=== PATIENT | female | born 1940 | race Caucasian/White ===

== ENCOUNTER → 2019-07-07 | Outpatient (REF) | payer BC, MEDICARE ==
[2019-07-07 20:28] LABS: BASO # 0.1 10^3/uL (0.0-0.2); BASO % 0.7 % (0.0-1.0); EOS # 0.3 10^3/uL (0.0-0.5); HEMATOCRIT 49.2 % (36.0-47.0); HEMOGLOBIN 14.9 g/dl (12.0-15.5); LYMPH # 2.6 10^3/uL (1.5-5.0); LYMPH % 30.5 % (24.0-44.0); MEAN CORPUSCULAR HEMOGLOBIN 28.7 pg (27.0-33.0); MEAN CORPUSCULAR HGB CONC 30.3 g/dl (32.0-36.5); MEAN CORPUSCULAR VOLUME 94.8 fl (80.0-96.0); MONO # 0.7 10^3/uL (0.0-0.8); MONO % 7.7 % (0.0-5.0); NEUTROPHILS # 4.9 10^3/uL (1.5-8.5); NEUTROPHILS % 56.8 % (36.0-66.0); PLATELET COUNT, AUTOMATED 159 10^3/uL (150-450); RED BLOOD COUNT 5.19 10^6/uL (4.00-5.40); WHITE BLOOD COUNT 8.6 10^3/uL (4.0-10.0)
[2019-07-07 20:37] LABS: ALBUMIN 3.5 GM/DL (3.2-5.2); BILIRUBIN,TOTAL 0.2 MG/DL (0.2-1.0); CALCIUM LEVEL 9.3 MG/DL (8.8-10.2); CHOLESTEROL RISK RATIO 2.521 (<5); CREATININE FOR GFR 0.99 MG/DL (0.55-1.30); GLOMERULAR FILTRATION RATE 57.9 (>39); POTASSIUM SERUM 4.5 MEQ/L (3.5-5.1); THYROID STIMULATING HORMONE 18.1 uIU/ML (0.358-3.740); TOTAL PROTEIN 6.9 GM/DL (6.4-8.2)
[2019-07-07 21:00] LABS: HEMOGLOBIN A1c 7.1 %
[2019-07-07 21:03] LABS: AMPHETAMINES URINE REFLEX NEGATIVE (NEGATIVE); BARBITURATES URINE REFLEX NEGATIVE (NEGATIVE); BENZODIAZEPINES URINE REFLEX PENDING CONFIRMATION (NEGATIVE); CANNABINOIDS URINE REFLEX NEGATIVE (NEGATIVE); COCAINE METABOLITE URINE REFLE NEGATIVE (NEGATIVE); MALB URINE SIEMENS 28.4 MG/L; MAU/CREAT RATIO 21.1 MCG/MG (0.0-30.0); METHADONE URINE REFLEX NEGATIVE (NEGATIVE); PHENCYCLIDINE URINE REFLEX NEGATIVE (NEGATIVE)
[2019-07-07 21:17] LABS: OPIATES URINE REFLEX PENDING CONFIRMATION (NEGATIVE)
[2019-07-13 00:06] LABS: Benzodiazepines Negative (Cutoff=300); Opiates Negative (Cutoff=200)
== END ==
LOC: M SFHCLERA 16:47
PROVIDERS: ATTEND Family Medicine
DX: Z51.81 Encounter for therapeutic drug level monitoring (principal); Z79.4 Long term (current) use of insulin; E11.9 Type 2 diabetes mellitus without complications
CPT/HCPCS: 80053; 80061; 80307; 82043; 83036; 84443; 85025; G0480

== ENCOUNTER → 2019-08-25 | Outpatient (REF) | payer MEDICARE, BC | LOC: M SFHCLERA 16:19 | PROVIDERS: ATTEND Family Medicine | DX: E03.8 Other specified hypothyroidism (principal) | CPT/HCPCS: 84443; G0463 ==

== ENCOUNTER → 2019-09-02 | Outpatient (REF) | payer MEDICARE, BC | LOC: M SMT 12:53 | PROVIDERS: ATTEND Urology | DX: N39.46 Mixed incontinence (principal); C67.9 Malignant neoplasm of bladder, unspecified | CPT/HCPCS: 87086; 88108; G0463 ==

== ENCOUNTER → 2019-09-10 | Outpatient (REF) | payer MEDICARE, BC | LOC: M SFHCLERA 09:27 | PROVIDERS: ATTEND Family Medicine | DX: K52.9 Noninfective gastroenteritis and colitis, unspecified (principal) | CPT/HCPCS: 86255; G0463 ==

== ENCOUNTER → 2019-09-26 | Outpatient (REF) | payer MEDICARE, BC | LOC: M SFHCLERA 11:58 | PROVIDERS: ATTEND Family Medicine | DX: E03.9 Hypothyroidism, unspecified (principal) ==

== ENCOUNTER → 2019-09-29 | Outpatient (REF) | payer MEDICARE, BC ==
[2019-09-29 16:50] LABS: CALCIUM LEVEL 8.7 MG/DL (8.8-10.2); GLOMERULAR FILTRATION RATE 57.2 (>39); POTASSIUM SERUM 5.4 MEQ/L (3.5-5.1)
== END ==
LOC: M LABSMT 10:44
PROVIDERS: ATTEND Nurse Practitioner Family
DX: Z85.51 Personal history of malignant neoplasm of bladder (principal)

== ENCOUNTER → 2019-10-01 | Outpatient (CLI) | payer MEDICARE, BC ==
--- NOTE | 2019-10-01 15:45 | REP ---
CT abdomen and pelvis without IV or oral contrast: History: History of bladder cancer. The patient reports IV contrast allergy. No comparison imaging. CT findings: Preliminary digital precise winder radiograph demonstrates a vena cava filter in place and vertebroplasty cement at the L1 vertebral body level. On axial CT images, the lung bases are clear. There are one or two granulomatous calcifications in the spleen. There is mild diffuse fatty infiltration of the liver. No focal liver mass lesion is seen on this noncontrast study. No adrenal mass is observed. There is a cyst in the right mid kidney measuring 3 cm in greatest diameter. Vascular calcification is seen in a normal caliber aorta. IVC filter is noted in place. There are clips in the gallbladder post cholecystectomy. No abnormalities noted in the pancreas. No retroperitoneal mass or adenopathy is seen. No pelvic mass or adenopathy is noted. The uterus appears to be surgically absent. No adnexal pathology. Urinary bladder is unremarkable. No abdominal wall defect or bony destructive lesion is seen. Impression: IVC filter. Postcholecystectomy and apparently hysterectomy. Right renal cyst. No evidence of mass or adenopathy. Electronically Signed by Edgar Gibson MD 10/01/2019 05:03 P
== END ==
LOC: M RAD 13:32
PROVIDERS: ATTEND Urology
DX: Z85.51 Personal history of malignant neoplasm of bladder (principal); Z95.828 Presence of other vascular implants and grafts; Z90.49 Acquired absence of other specified parts of digestive tract; N28.1 Cyst of kidney, acquired

== ENCOUNTER → 2019-10-18 | Outpatient (REF) | payer MEDICARE, BC ==
[2019-10-18 14:27] LABS: CALCIUM LEVEL 8.7 MG/DL (8.8-10.2); CREATININE FOR GFR 1.31 MG/DL (0.55-1.30); GLOMERULAR FILTRATION RATE 41.8 (>39); POTASSIUM SERUM 4.6 MEQ/L (3.5-5.1)
== END ==
LOC: M SFHCLERA 11:13
PROVIDERS: ATTEND Family Medicine
DX: I10 Essential (primary) hypertension (principal)

== ENCOUNTER → 2019-11-04 | Outpatient (REF) | payer MEDICARE, BC | LOC: M SFHCLERA 12:16 | PROVIDERS: ATTEND Family Medicine | DX: K52.9 Noninfective gastroenteritis and colitis, unspecified (principal) ==

== ENCOUNTER → 2019-11-19 | Outpatient (CLI) | payer MEDICARE, BC ==
--- NOTE | 2019-11-19 12:56 | REP ---
Right knee series: Five views. History: Lateral pain with ambulation. No comparison views. Findings: Five views of the right knee demonstrate that the patient is status post lateral screw plate fixation device along the lateral aspect of the proximal tibia apparently for fixation of lateral tibial plateau fracture. There is some depression of the lateral tibial plateau seen with secondary osteoarthritic spurring of the lateral tibial plateau. Mild narrowing of the joint space is seen laterally. There is some chondrocalcinosis medially. There is diffuse osteoporosis. No evidence of joint effusion is seen. Minimal vascular calcification is present. Impression: Status post open reduction internal fixation for lateral tibial plateau fracture with moderate lateral compartment osteoarthritic spurring and some residual depression. There is mild patellar spurring. Diffuse osteopenia. Electronically Signed by Edgar Gibson MD 11/19/2019 08:05 P
== END ==
LOC: M LRY 10:02
PROVIDERS: ATTEND Family Medicine
DX: M17.11 Unilateral primary osteoarthritis, right knee (principal); I10 Essential (primary) hypertension; E11.9 Type 2 diabetes mellitus without complications; M25.561 Pain in right knee
CPT/HCPCS: 73564; 80048; 83036; G0463

== ENCOUNTER → 2019-11-19 | Outpatient (REF) | payer MEDICARE, BC ==
[2019-11-19 12:46] LABS: HEMOGLOBIN A1c 8.1 %
[2019-11-19 12:54] LABS: CALCIUM LEVEL 8.6 MG/DL (8.8-10.2); CREATININE FOR GFR 1.3 MG/DL (0.55-1.30); GLOMERULAR FILTRATION RATE 42.2 (>39); POTASSIUM SERUM 4.2 MEQ/L (3.5-5.1)
== END ==
LOC: M SFHCLERA 09:43
PROVIDERS: ATTEND Family Medicine
DX: I10 Essential (primary) hypertension (principal); E11.9 Type 2 diabetes mellitus without complications

== ENCOUNTER → 2020-05-20 | Outpatient (CLI) | payer MEDICARE, BC ==
[~2020-05-20] MED LIST: CARV25TA PO; CHLO125TA PO; DULO1CAP6 PO; LEVO112T2 PO; LOPE2CAP PO; LOSA25TA14 PO; ROPI0.5T3 PO
--- NOTE | 2020-05-25 16:22 | ECHO ---
DATE OF PROCEDURE: 05/20/2020 Age: 79 Gender: Female Height: Weight: REFERRING PHYSICIAN: Bryson Young DO Patient Location: Outpatient INDICATION: Cardiac murmur. MEASUREMENTS: 2D measurements: IVS 2.2 cm LV 2.4 cm LVPW 1.9 cm LA 3.7 cm Aorta 2.4 cm IVC 1.9 cm DOPPLER MEASUREMENTS: Peak velocity across the aortic valve 1.9 m/s Peak velocity across the LVOT 1.5 m/s Peak gradient across the aortic valve 15 mmHg Mitral E 0.48 Mitral 0.74 with a ratio of 0.7 Maximum tricuspid jet velocity 1.9 m/s 2D COMMENTS: 1. Moderately increased left ventricular wall thickness with ischemic asymmetric hypertrophy, a small left ventricle and a normal global left ventricular systolic function. The estimated left ventricular systolic ejection fraction is 60 to 65% 2. Normal left atrium. Normal right atrium and ventricle. 3. The atrial septum appears to be normal without evidence of defect or shunt. 4. Normal aortic root. 5. Trace pericardial effusion noted. No evidence of cardiac tamponade. 6. Minimally calcified aortic valve with normal leaflet excursion. Mildly calcific mitral annulus and JENNIFER/systolic anterior motion of the anterior mitral leaflet could not be ruled out. Normal tricuspid valve. The pulmonic valve and proximal pulmonary artery branches were not well visualized. 7. The inferior vena cava was normal in size. Central venous pressure is probably normal. DOPPLER: It detects trace and mild aortic regurgitation, trace mitral regurgitation and trace tricuspid regurgitation. The calculated pulmonary artery systolic pressure is normal. Abnormal relaxation pattern was noted across the mitral valve leaflets, as well as the mitral valve annulus consistent with features of grade 1 left ventricular diastolic dysfunction. IMPRESSION: 1. Normal global left ventricular systolic function with hypertrophic asymmetric cardiomyopathy. Could not rule out an obstructive pattern. 2. Aortic valve sclerosis with just mild aortic regurgitation and trivial aortic stenosis. 3. Trace mitral regurgitation with mitral annulus calcification. 4. Trace tricuspid regurgitation with a normal calculated pulmonary artery systolic pressure. 5. Trace pericardial effusion. MTDD
== END ==
LOC: M CARPUL 10:04
PROVIDERS: ATTEND Family Medicine
DX: R01.1 Cardiac murmur, unspecified (principal)

== ENCOUNTER → 2020-06-23 | Outpatient (REF) | payer MEDICARE, BC ==
[2020-06-23 15:43] LABS: BASO # 0.1 10^3/uL (0.0-0.2); BASO % 0.5 % (0.0-1.0); EOS # 0.3 10^3/uL (0.0-0.5); HEMATOCRIT 44.3 % (36.0-47.0); LYMPH # 2.5 10^3/uL (1.5-5.0); LYMPH % 23.2 % (24.0-44.0); MEAN CORPUSCULAR HGB CONC 29.3 g/dl (32.0-36.5); MEAN CORPUSCULAR VOLUME 98.7 fl (80.0-96.0); MONO # 0.6 10^3/uL (0.0-0.8); MONO % 5.9 % (0.0-5.0); NEUTROPHILS # 7.2 10^3/uL (1.5-8.5); NEUTROPHILS % 66.9 % (36.0-66.0); PLATELET COUNT, AUTOMATED 181 10^3/uL (150-450); RED BLOOD COUNT 4.49 10^6/uL (4.00-5.40); WHITE BLOOD COUNT 10.8 10^3/uL (4.0-10.0)
[2020-06-23 15:59] LABS: HEMOGLOBIN A1c 7.4 %
[2020-06-23 16:24] LABS: CALCIUM LEVEL 8.4 MG/DL (8.8-10.2); CHOLESTEROL RISK RATIO 2.915 (<5); CREATININE FOR GFR 1.5 MG/DL (0.55-1.30); GLOMERULAR FILTRATION RATE 35.8 (>39); POTASSIUM SERUM 4.4 MEQ/L (3.5-5.1); THYROID STIMULATING HORMONE 6.44 uIU/ML (0.358-3.740)
== END ==
LOC: M SFHCLERA 12:09
PROVIDERS: ATTEND Family Medicine
DX: E11.9 Type 2 diabetes mellitus without complications (principal); E03.9 Hypothyroidism, unspecified

== ENCOUNTER → 2020-07-08 | Outpatient (REF) | payer MEDICARE, BC | LOC: M LAB REF 08:25 | PROVIDERS: ATTEND Physician Assistant | DX: C44.519 Basal cell carcinoma of skin of other part of trunk (principal); B07.9 Viral wart, unspecified | CPT/HCPCS: 11102; 11103; 17110; 88305; G0463 ==

== ENCOUNTER → 2020-07-12 | Outpatient (CLI) | payer MEDICARE, BC ==
[2020-07-12 16:13] LABS: CALCIUM LEVEL 8.7 MG/DL (8.8-10.2); CREATININE FOR GFR 1.4 MG/DL (0.55-1.30); GLOMERULAR FILTRATION RATE 38.7 (>39); POTASSIUM SERUM 4.6 MEQ/L (3.5-5.1)
[2020-07-12 16:32] LABS: APPEARANCE, URINE CLOUDY (CLEAR); BACTERIA, URINE AUTO 1+ (NEGATIVE); BILIRUBIN, URINE AUTO 1+ (NEGATIVE); BLOOD, URINE BLOOD NEGATIVE (NEGATIVE); COLOR, URINE AMBER (YELLOW); GLUCOSE, URINE (UA) AUTO NEGATIVE (NEGATIVE); KETONE, URINE AUTO TRACE mg/dL (NEGATIVE); LEUKOCYTE ESTERASE, URINE AUTO NEGATIVE (NEGATIVE); MUCUS, URINE SMALL (NEGATIVE); NITRITE, URINE AUTO NEGATIVE (NEGATIVE); PROTEIN, URINE AUTO 1+ mg/dL (NEGATIVE); RBC, URINE AUTO 2 /HPF (0-3); SPECIFIC GRAVITY URINE AUTO 1.023 (1.002-1.035); SQUAMOUS EPITHELIAL CELL UR AU 6 /HPF (0-6); WBC, URINE AUTO 8 /HPF (0-3)
== END ==
LOC: M WUC 13:04
PROVIDERS: ATTEND Family Medicine
DX: R79.89 Other specified abnormal findings of blood chemistry (principal)

== ENCOUNTER 2020-10-01 11:58 | Inpatient (IN) | payer MEDICARE, BC ==
[~2020-10-01] VITALS: Ht 154.9 cm; Wt 89.1 kg
--- OUTSIDE RECORDS SUMMARY | 2020-10-01 12:03 | CCD ---
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 Z79.4 Activ e 231049502 Problem Malignant neoplasm of urinary bladder, unspecified site C67.9 Active 703791291 Problem Tobacco use disorder F17.200 Active 662457254 Problem Urinary (tract) obstruction N13.9 Active 7163 005 Problem History of bladder cancer Z85.51 Active 057057 004 Problem 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 04112057 ALLERGIES Allergen (clinical drug ingredient) Drug/Non Drug Allergy do cumented on EMR Reaction Allergy Type Onset Date Status Sulfa (for allergy use only) Mouth sores Drug Allergy Active Penicillin (For Allergies Use Only) Rash Drug Allerg y Active tetracycline Tetracycline HCl([facility] Code:[address]-05) Rash Drug Allergy Active ENCOUNTERS from 1941 to 2020-09-24 Encounter Location Date Provider Diagnosis [facility] Dermatology [address] [address] Aug, Beulah Eisenberg IMMUNIZATIONS Vaccine Route Administration Date Status Influenza (18 yrs & older) Flublok IM Intramuscular Aug 22, 2020 Administered Influenza (18 yrs & older) Flublok IM Intramuscular Jul 28, 2019 Administered SOCIAL HISTORY Tobacco Use: Social History Observation Description Date Details (start date - stop date) Current Smoker Sex Assigned At : Social History Observation Description Sex Assigned At Unknown Education: Question Answer Notes Level of Education: High School 10th grade Audit Question Answer Notes Total Score: 0 Interpretation: Alcohol Education Language: Question Answer Notes Languages spoken: [place] Hinduism: Question Answer Notes Hinduism 08 Holiness Sexual Hx: Question Answer Notes Had sex in the last 12 months (vaginal, oral, or anal)? No Have you ever had an STD? No Drug and Alcohol Question Answer Notes Total Score: 0 Interpretation: No problems reported Alcohol Screening: Question Answer Notes Did you have a drink containing alcohol in the past year? No Points 0 Interpretation Negative BMI Care Goal Follow-Up Question Answer Notes Above Normal BMI Follow-Up Giving encouragement to exercise Tobacco Use: Question Answer Notes Are you a: current smoker 1ppd for 64 years REASON FOR REFERRAL No Information VITAL SIGNS No information MEDICATIONS Medication SIG (Take, Route, Frequency, Duration) Notes Start Da te End Date Status Insulin Syringe 31G X 5/16 as directed e11.9 intradermally bid f or 90 days Jul, Active Cymbalta 60 MG 1 capsule Orally Every night for 90 days Active FreeStyle Vero [place] - as directed intradermally Daily Dx: E11.9 for 999 days May, Active Ropinirole HCl 0.5 MG 2 tablets Orally At bedtime for 90 days Active Nebulizer - j44.9 as directed for 30 days Aug, Active Xanax 1 MG 1 tablet Orally Twice a day for 30 days Aug, Active Fluocinolone Acetonide 0.01 % 1 application Externally Apply to entire scalp once weekly, leave on overnight, rinse in morning for 30 days Jun, Active Xanax 1MG 1 tablet Orally twice a day as needed for 30 days Active Probiotic - 2 capsules Orally Once a day Active OneTouch UltraSoft Lancets - as directed Daily for 30 days Dec, Active OneTouch Ultra Test - as directed In Vitro once in the morning fasting and as needed for hypoglycemia for 30 days Dec, Active Loperamide HCl 2 MG 1 capsule as needed Orally three times a day for 90 days Active Lovastatin 10 MG 1 tablet with the evening meal Orally Once a da y for 90 days Active Carvedilol 25 MG 1 tablet Orally Twice a day for 90 days Active ReliOn 70/30 40 Units Subcutaneously Twice a day for 90 days Active Tylenol Extra Strength 500 MG 1 tablet as needed Orally every 6 hrs Active GenTeal Tears 0.1-0.2-0.3 % 1 drop into both eyes Opht halmic As needed every day Active Losartan Potassium 25 MG 1 tablet Orally Once a day for 90 days Aug, Active FreeStyle Vero 14 Day Sensor - as directed intradermally Daily for 90 days Sep, Active Magnesium _ 1 capsule with a meal Orally Once a day Active PreserVision AREDS - 2 capsules Orally Once a day Active Chlorthalidone 25 MG 1 tablet in the morning with food Orally Once a day for 90 days Sep, Active Levothyroxine Sodium 125 MCG 1 tablet in the morning o n an empty stomach Orally Once a day for 90 days Jun, Active PROCEDURES No Information RESULTS No Results REASON FOR VISIT NEED TO SCHEDULE MEDICAL (GENERAL) HISTORY Type Description Date Medical History Insulin dependent diabetes, diagnosed in her early 50s Medical History Hypertension Medical History Hyperlipidemia Medical History Chronic musculoskeletal pain Medical History Chronic prescription benzodiazepene use Medical History Fibromyalgia Medical History Obstructive sleep apnea Medical History Tobacco use disorder, quit 06/04/19 Medical History COPD Medical History Hypothyroidism Medical History Restless legs syndrome Medical History Chronic prescription opiate use Medical History Bladder cancer Medical History Anxiety Surgical History Neck Surgery Surgical History Thyroid Surgical History Gallbladder Surgical History Bladder Stent Surgical History Right leg surgery Surgical History Back surgery Surgical History Bilateral foot bunionectomy Surgical History Right toe Surgical History Bilateral carpel tunnel Surgical History Bilateral cataract Surgical History cystoscopy 10/14/19 Hospitalization History surgery related Hospitalization History MRSA Goals Section No Information Health Concerns No Information MEDICAL EQUIPMENT No Information MENTAL STATUS No Information FUNCTIONAL STATUS No Information ASSESSMENTS No Information PLAN OF TREATMENT Medication Medication Name Sig Start Date Stop Date Lovastatin 10 MG 1 tablet with the evening meal Orally Once a da y for 90 days Chlorthalidone 25 MG 1 tablet in the morning with food Orally Once a day for 90 days Sep, Losartan Potassium 25 MG 1 tablet Orally Once a day for 90 days Aug, Xanax 1MG 1 tablet Orally twice a day as needed for 30 day s Loperamide HCl 2 MG 1 capsule as needed Orally three times a day for 90 days FreeStyle Vero 14 Day Sensor - as directed intradermally Da vinayak for 90 days Sep, Ropinirole HCl 0.5 MG 2 tablets Orally At bedtime for 90 days Xanax 1 MG 1 tablet Orally Twice a day for 30 days Aug, Levothyroxine Sodium 125 MCG 1 tablet in the morning o n an empty stomach Orally Once a day for 90 days Jun, ReliOn 70/30 40 Units Subcutaneously Twice a day for 90 days Insulin Syringe 31G X 5/16 as directed e11.9 intradermally b id for 90 days Jul, Cymbalta 60 MG 1 capsule Orally Every night for 90 days Next Appt Details Provider Name:Trent Reid, 2020-10 10:30:00 AM, [address] [place] [address], [address] [place] [address], [address], Provider Name:Bryson Young, 2020-11-02 11:00:00 AM, [address] [place], [address], Provider Name:Elver Rizo, 2020-11-02 01:30:00 PM, [address] [place], [address], Provider Name:Beulah Eisenberg, 01:45:00 PM, [address] [place] [address], [address] [place] [address], [address], Insurance Providers Payer Name Payer Address Payer Phone Insured Name Patient Relati onship to Insured Coverage Start Date Coverage End Date [facility] [phone] [facility] [address] [phone] DANIELA SAXENA MEDICARE Part A and B [address] [facility] [address] [phone] DANIELA SAXENA self
--- OUTSIDE RECORDS SUMMARY | 2020-10-01 12:03 | CCD ---
Author Author [facility] Organization [facility] Address Unknown Phone Unavailable Care Team Providers Care Emergency Veterinary Technician Name Role Phone Bryson Young Unavailable PROBLEMS Type Condition ICD9-CM Code [id number] Code Onset Dates Condition S tatus SNOMED Code Notes Problem Type 2 diabetes mellitus without complications E11 .9 Active 317202173 Problem Chronic obstructive pulmonary disease, unspecified COPD ty pe J44.9 Active 53356109 Problem MCC (current) use of insulin Z79.4 Activ e 067802765 Problem Other specified hypothyroidism E03.8 Active 4 0264888 Problem Tobacco use disorder F17.200 Active 137074201 Problem Chronic pain syndrome G89.4 Active 946514418 Problem History of bladder cancer Z85.51 Active 454001 004 Problem Malignant neoplasm of urinary bladder, unspecified site C67.9 Active 205857471 Problem Hypothyroidism, unspecified type E03.9 Active 75505602 Problem 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 9 Active 143001366 Problem Urinary (tract) obstruction N13.9 Active 7163 005 Problem Essential hypertension I10 Active 51059728 Problem Glaucoma, unspecified glaucoma type, unspecified lateralit y H40.9 Active 64140080 Problem Anxiety F41.9 Active 09684325 Problem Restless leg G25.81 Active 36644686 Problem Type 2 diabetes mellitus wit hout complication, without long-term current use of insulin E11.9 Active 665566490 ALLERGIES Allergen (clinical drug ingredient) Drug/Non Drug Allergy do cumented on EMR Reaction Allergy Type Onset Date Status Sulfa (for allergy use only) Mouth sores Drug Allergy Active Penicillin (For Allergies Use Only) Rash Drug Allerg y Active tetracycline Tetracycline HCl([facility] Code:[address]-84) Rash Drug Allergy Active ENCOUNTERS from 1941 to 2020-09-20 Encounter Location Date Provider Diagnosis [facility] [address] [place] [address], Bryson Young IMMUNIZATIONS Vaccine Route Administration Date Status Influenza [...] Education Language: Question Answer Notes Languages spoken: Croatian Methodist: Question Answer Notes Methodist 08 Protestant Sexual Hx: Question Answer Notes Had sex [...] night for 90 days Active FreeStyle Vero 14 Day Sensor - as directed intradermally Daily for 30 days Sep, Active Ropinirole HCl 0.5 MG 2 tablets [...] Twice a day for 90 days Active Magnesium _ 1 capsule with a meal Orally Once a day Active GenTeal Tears 0.1-0.2-0.3 % 1 drop into both eyes Opht halmic As needed every day Active Losartan Potassium 25 MG 1 tablet Orally Once a day for 90 days Aug, Active Tylenol Extra Strength 500 MG 1 tablet as needed Orally every 6 hrs Active [employer] Vero [place] - as directed intradermally Daily Dx: E11.9 for 999 days May, Active PreserVision AREDS - 2 capsules Orally Once a day Active Chlorthalidone 25 MG 1 tablet in the morning with food Orally Once a day for 90 days Sep, Active Levothyroxine Sodium 125 MCG 1 tablet in the morning o n an empty stomach Orally Once a day for 90 days Jun, Active PROCEDURES No Information RESULTS No Results REASON FOR VISIT Refill MEDICAL (GENERAL) HISTORY Type Description Date Medical [...] - as directed intradermally Da vinayak for 30 days Sep, Ropinirole HCl 0.5 MG 2 [...] for 90 days Next Appt Details Provider Name:Beulah Eisenberg, 02:15:00 PM, [address] [facility], [address] [place] [address], [place], [address], Provider Name:Bryson Young, 2020-11-02 11:00:00 AM, [address] [place], [address], Insurance Providers Payer Name Payer Address Payer Phone Insured Name Patient Relati onship to Insured Coverage Start Date Coverage End Date MEDICARE Part A and B [address] [facility] [phone] DANIELA SAXENA BC OF [place] [phone] [facility] [address] DANIELA SAXENA
--- OUTSIDE RECORDS SUMMARY | 2020-10-01 12:03 | CCD ---
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.4 Activ e 956749905 Problem Malignant neoplasm of urinary bladder, unspecified site C67.9 Active 605484135 Problem Tobacco use disorder F17.200 Active 359405531 Problem Urinary (tract) obstruction N13.9 Active 7163 005 Problem History of bladder cancer Z85.51 Active 695072 004 Problem 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 04066811 ALLERGIES Allergen (clinical drug ingredient) Drug/Non Drug Allergy do cumented on EMR Reaction Allergy Type Onset Date Status Sulfa (for allergy use only) Mouth sores Drug Allergy Active Penicillin (For Allergies Use Only) Rash Drug Allerg y Active tetracycline Tetracycline HCl([facility] Code:[address]-66) Rash Drug Allergy Active ENCOUNTERS from 1941 to 2020-09-22 Encounter Location Date Provider Diagnosis [facility] [address] [place] [address], Bryson Thomasett IMMUNIZATIONS Vaccine Route Administration Date Status Influenza [...] Education Language: Question Answer Notes Languages spoken: Pashto Jainism: Question Answer Notes Jainism 08 Mandaen Sexual Hx: Question Answer Notes Had sex [...] night for 90 days Active FreeStyle Vero [place] - as directed intradermally Daily Dx: E11.9 [...] Information RESULTS No Results REASON FOR VISIT rx send to mail order MEDICAL (GENERAL) HISTORY Type Description Date Medical [...] Details Provider Name:Beulah Eisenberg, 02:15:00 PM, [address] [facility], [address] Floor, [place], [address], Provider Name:Bryson Young, 2020-11-02 11:00:00 AM, [address] [place], [address], Provider Name:Elver Rizo, 2020-11-02 01:30:00 PM, [address], [place], [address], Insurance Providers Payer Name Payer Address Payer Phone Insured Name Patient Relati onship to Insured Coverage Start Date Coverage End Date MEDICARE Part A and B [address] [facility] [phone] [facility] [phone] [facility] [address] DANIELA SAXENA
--- OUTSIDE RECORDS SUMMARY | 2020-10-01 12:04 | CCD ---
Author Author [facility] Organization [facility] Address Unknown Phone Unavailable Care Team Providers Care Cancer Program Consultant Name Role Phone Bryson Young Unavailable PROBLEMS Type Condition ICD9-CM Code [id number] Code Onset Dates Condition S tatus SNOMED Code Notes Problem Type 2 diabetes mellitus without complications E11 .9 Active 868047959 Problem Chronic obstructive pulmonary disease, unspecified COPD ty pe J44.9 Active 96460006 Problem [facility] (current) use of insulin Z79.4 Activ e 400349177 Problem Other specified hypothyroidism E03.8 Active 4 0839898 Problem Tobacco use disorder F17.200 Active 889012193 Problem Chronic pain syndrome G89.4 Active 088257674 Problem History of bladder cancer Z85.51 Active 041940 004 Problem Malignant neoplasm of urinary bladder, unspecified site C67.9 Active 221109390 Problem Hypothyroidism, unspecified type E03.9 Active 75928787 Problem 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 9 Active 185477224 Problem Urinary (tract) obstruction N13.9 Active 7163 005 Problem Essential hypertension I10 Active 57432560 Problem Glaucoma, unspecified glaucoma type, unspecified lateralit y H40.9 Active 70280861 Problem Anxiety F41.9 Active 22281916 Problem Restless leg G25.81 Active 98613383 Problem Type 2 diabetes mellitus wit hout complication, without long-term current use of insulin E11.9 Active 626244514 ALLERGIES Allergen (clinical drug ingredient) Drug/Non Drug Allergy do cumented on EMR Reaction Allergy Type Onset Date Status Sulfa (for allergy use only) Mouth sores Drug Allergy Active Penicillin (For Allergies Use Only) Rash Drug Allerg y Active tetracycline Tetracycline HCl([facility] Code:[address]-86) Rash Drug Allergy Active ENCOUNTERS from 1941 to 2020-09-02 Encounter Location Date Provider Diagnosis [facility] [address] [place] [address] Aug, Bryson Young Palpitations R00.2 ; Elevated serum crea tinine R79.89 ; Chronic diarrhea K52.9 ; Other chronic pain G89.29 ; Encounter for immunization Z23 ; Anxiety F41.9 ; Essential hypertension I10 ; Restless leg G25.81 and Type 2 diabetes mellitus without complications E11.9 IMMUNIZATIONS Vaccine Route Administration Date Status Influenza [...] Education Language: Question Answer Notes Languages spoken: Greenlandic Religious: Question Answer Notes Religious 08 Yarsani Sexual Hx: Question Answer Notes Had sex [...] REASON FOR REFERRAL No Information VITAL SIGNS Weight 196 lbs Aug, Height 60.5 in Aug, BMI 37.64 kg/m2 Aug, Heart Rate 72 /min Aug, Respiratory Rate 18 /min Aug, Temperature 97.8 degrees Fahrenheit Aug, Oximetry 94% Aug, Blood pressure systolic 142 mm Hg Aug, Blood pressure diastolic 77 mm Hg Aug, MEDICATIONS Medication SIG (Take, Route, Frequency, Duration) Notes Start Da te End Date Status Insulin Syringe 31G X 5/16 as directed e11.9 intradermally bid f or 90 days Jul, Active Cymbalta 60 MG 1 capsule Orally Every night for 90 days Active Ropinirole HCl 0.5 MG 2 tablets [...] as needed Orally every 6 hrs Active [employer] Vero [place] - as directed intradermally Daily Dx: E11.9 [...] day for 90 days Jun, Active PROCEDURES from 1941 to 2020-09-02 Procedure Date Ordered Result Body Site Immunization: Flublok Quadrivalent (18 years & older) 0.5mL IM (Influenza) 2020-08-22 N/A RESULTS No Results REASON FOR VISIT Follow up MEDICAL (GENERAL) HISTORY Type Description Date Medical [...] No Information FUNCTIONAL STATUS No Information ASSESSMENTS Encounter Date Diagnosis Assessment Notes Treatment Notes Treatm ent Clinical Notes Aug, Palpitations (ICD-10 - R00.2) Patient Educated with: FLU Vaccine, Inactivated [id number] (FLU Vaccine, Inactivated [id number]) Patient notes having feelings of heart racing from time to time. Unsure if related to anxiety. Refer for further evaluation and treatment as needed. Aug, Elevated serum creatinine (ICD-10 - R79.89) Creatinine was increased compared to normal baseline. Unsure if related to diarrhea history/ dehydration. Refer to nephrology for further evaluation. Aug, Chronic diarrhea (ICD-10 - K52.9) Patient notes having chronic diarrhea for years. Unsure if ever had colonoscopy for evaluation. Refer to GI for colonscopy/ further evaluation. Aug, Other chronic pain (ICD-10 - G89.29) Continue to follow up with ortho Aug, Encounter for immunization (ICD-10 - Z23) Recommend. Consent. Aug, Anxiety (ICD-10 - F41.9) #: [id number] alprazolam 1 mg tablet 3030[id number] Sending refill xanax. Did not go through. Will print off and have available for patient to picker packer. Aug, Essential hypertension (ICD-10 - I10) Refill medicaitons. Aug, Restless leg (ICD-10 - G25.81) Refill medications. Aug, Type 2 diabetes mellitus without complications ( ICD-10 - E11.9) Refill medications. Aug, Other Refill medicati ons. PLAN OF TREATMENT Medication Medication Name Sig [...] three times a day for 90 days Ropinirole HCl 0.5 MG 2 tablets Orally [...] capsule Orally Every night for 90 days Treatment Notes Assessment Notes Clinical Notes Palpitations Patient Educated with: FLU V accine, Inactivated [id number] (FLU Vaccine, Inactivated [id number]) Patient notes having feelings of heart racing from time to time. Unsure if related to anxiety. Refer for further evaluation and treatment as needed. Elevated serum creatinine Creatinine was increased compared to normal baseline. Unsure if related to diarrhea history/ dehydration. Refer to nephrology for further evaluation. Chronic diarrhea Patient notes having chronic diarrhea for years. Unsure if ever had colonoscopy for evaluation. Refer to GI for colonscopy/ further evaluation. Other chronic pain Continue to follow u p with ortho Encounter for immunization Recommend. Co nsent. Anxiety #: [id number] alprazolam 1 mg tablet 3030[facility]son [phone] #[id number] refill xanax. Did not go through. Will print off and have available for patient to picker packer. Essential hypertension Refill medicaiton s. Restless leg Refill medications. Type 2 diabetes mellitus without complications Refill medications. Treatment Notes Test Name Order Date Basic Metabolic Profile (BMP) 2020-09-02 UA URINALYSIS 2020-09-02 Next Appt Details 2 mth Reason: Provider Name:Beulah Eisenberg, 02:15:00 PM, [address] [facility], 1st Floor, [place], [address], Provider Name:Bryson Young, 2020-11-02 11:00:00 AM, [address] [place], [address], Insurance Providers Payer Name Payer Address Payer Phone Insured Name Patient Relati onship to Insured Coverage Start Date Coverage End Date [facility] 090 [id number] [facility] [id number] DANIELA SAXENA MEDICARE Part A and B [address] [facility] [phone] DANIELA SAXENA
--- OUTSIDE RECORDS SUMMARY | 2020-10-01 12:04 | CCD | Continuity of Care Document ---
Author Author Malinad PATEL DPM Organization Unknown Address [address] [place] [address], [address] [place] [address] Phone [phone] Care Team Providers Care Desk Maker Name Role Phone Bryson Young DO AUTM [phone] DR. Kan AUTM [phone] Problems Active Problems Provider Date Pronation Shay Patel DPM Onset: 10/17/2019 Type 2 diabetes mellitus with diabetic polyneuropathy Shay Patel DPM Onset: 10/17/2019 Onychomycosis Shay Patel DPM Onset: 10/17/2019 Corns and callosities Shay Patel DPM Onset: 10/17/2019 Social History Type Date Description Comments Sex Unknown ETOH Use Never used alcohol Tobacco Use Start: Unknown End: Unknown Patient is a former smoker Smoked 1 ppd for 64 years, quit in May 2019. Allergies, Adverse Reactions, Alerts Active Allergies Reaction Severity Comments Date Tetracycline Rash 10/06/2019 Penicillin Rash 10/06/2019 Sulfa mouth sores 10/06/2019 Medications Active Medications SIG Qnty Indications Ordering Provide r Date Aspercreme W/Lidocaine 4% Cream apply to foot 2-3 times daily as needed 1units Shay Patel DPM 08/29/2020 Ciclopirox 8% Solution apply to affected nail(s) daily 6.6units Shay Patel DPM 10/06/2019 Chlorthalidone 25mg Tablets MD Pearl, Alonzo Duloxetine HCL 60mg Caps DR Yaniv Kang MD, Alonzo Ropinirole HCL 0.5mg Tablets MD Pearl, Alonzo Carvedilol 25mg Tablets MD Pearl, Alonzo Losartan Potassium 50mg Tablets MD Pearl, Alonzo Levothyroxine Sodium 112mcg Tablets MD Pearl, Alonzo Loperamide HCL 2mg Capsules MD Pearl, Alonzo Xanax Unknown Preservision Areds 2 Unknown Tylenol Extra Strength Unknown Gabapentin Unknown Immunizations Description No Information Available Vital Signs Date Vital Result Comment 04/25/2020 2:19pm Height 60 inches 5'0" Weight 200.00 lb BP Systolic 124 mmHg BP Diastolic 60 mmHg Heart Rate 64 /min BMI (Body Mass Index) 39.1 kg/m2 10/06/2019 3:26pm Height 62 inches 5'2" Weight 194.00 lb BP Systolic 110 mmHg BP Diastolic 60 mmHg Heart Rate 65 /min BMI (Body Mass Index) 35.5 kg/m2 Results Description No Information Available Procedures Date Code Description Status 08/29/2020 24106 Debridement 6-10 Nails Electric Completed 08/29/2020 53660 Paring/Cutting Benign Single Les n Completed 04/25/2020 66788 Debridement 6-10 Nails Electric Completed 04/25/2020 65319 Paring/Cut Benign Lesion 2 To 4 Completed Medical Devices Description No Information Available Encounters Type Date Location Provider Dx Diagnosis Office Visit 04/25/2020 2:45p [facility] Sahy Patel, [place] M79.676 Pain in unspecified toe(s) E11.42 Type 2 diabetes mellitus wit h diabetic polyneuropathy B35.1 Tinea unguium L84 Corns and callosities Assessments Date Code Description Provider 08/29/2020 B35.1 Tinea unguium Shay Patel, [place] 08/29/2020 E11.42 Type 2 diabetes mellitus with di abetic polyneuropathy Shay Patel DPM 08/29/2020 L84 Corns and callosities Shay Patel DPM 04/25/2020 M79.676 Pain in unspecified toe(s) Rickey Patel DPM 04/25/2020 E11.42 Type 2 diabetes mellitus with di abetic polyneuropathy Shay Patel DPM 04/25/2020 B35.1 Tinea unguium Shay Patel DPM 04/25/2020 L84 Corns and callosities Shay Patel DPM Plan of Treatment Future Appointment(s):* 11/07/2020 2:30 pm - Shay Patel DPM at [facility] [place] [facility] [place] Functional Status Description No Information Available Mental Status Description No Information Available Referrals Description No Information Available
--- OUTSIDE RECORDS SUMMARY | 2020-10-01 12:04 | CCD ---
Author Author [facility] Organization [facility] Address Unknown Phone Unavailable Care Team Providers Care Multimedia Developer Name Role Phone Bryson Young Unavailable PROBLEMS Type Condition ICD9-CM Code MKP96-RM Code Onset Dates Condition S tatus SNOMED Code Notes Problem Type 2 diabetes mellitus without complications E11 .9 Active 512744160 Problem Chronic obstructive pulmonary disease, unspecified COPD ty pe J44.9 Active 06669885 Problem [facility] (current) use of insulin Z79.4 Activ e 295034050 Problem Other specified hypothyroidism E03.8 Active 4 3868647 Problem Tobacco use disorder F17.200 Active 318064263 Problem Chronic pain syndrome G89.4 Active 542915059 Problem History of bladder cancer Z85.51 Active 531184 004 Problem Malignant neoplasm of urinary bladder, unspecified site C67.9 Active 356471756 Problem Hypothyroidism, unspecified type E03.9 Active 33163940 Problem 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 9 Active 248458812 Problem Urinary (tract) obstruction N13.9 Active 7163 005 Problem Essential hypertension I10 Active 24506550 Problem Glaucoma, unspecified glaucoma type, unspecified lateralit y H40.9 Active 40917784 Problem Anxiety F41.9 Active 94613758 Problem Restless leg G25.81 Active 63691287 Problem Type 2 diabetes mellitus wit hout complication, without long-term current use of insulin E11.9 Active 551030681 ALLERGIES Allergen (clinical drug ingredient) Drug/Non Drug Allergy do cumented on EMR Reaction Allergy Type Onset Date Status Sulfa (for allergy use only) Mouth sores Drug Allergy Active Penicillin (For Allergies Use Only) Rash Drug Allerg y Active tetracycline Tetracycline HCl([facility] Code:[address]-70) Rash Drug Allergy Active ENCOUNTERS from 1941 to 2020-08-23 Encounter Location Date Provider Diagnosis [facility] [address] [place] [address] Aug, Bryson Young Anxiety F41.9 IMMUNIZATIONS Vaccine Route Administration Date Status Influenza [...] Education Language: Question Answer Notes Languages spoken: Dominican Taoist: Question Answer Notes Taoist 08 Baptism Sexual Hx: Question Answer Notes Had sex [...] Notes Start Da te End Date Status Levothyroxine Sodium 125 MCG 1 tablet in the morning o n an empty stomach Orally Once a day for 90 days Jun, Active ReliOn 70/30 40 Units Subcutaneously Twice a day for 90 days Active Insulin Syringe 31G X 5/16 as directed e11.9 intradermally bid f or 90 days Jul, Active GenTeal Tears 0.1-0.2-0.3 % 1 drop into both eyes Opht halmic As needed every day Active Cymbalta 60 MG 1 capsule Orally Every night for 90 days Active Fluocinolone Acetonide 0.01 % 1 application Externally Apply to entire scalp once weekly, leave on overnight, rinse in morning for 30 days Jun, Active Ropinirole HCl 0.5 MG 2 tablets Orally At bedtime for 90 days Active Probiotic - 2 capsules Orally Once a day Active OneTouch UltraSoft Lancets - as directed Daily for 30 days Dec, Active OneTouch Ultra Test - as directed In Vitro once in the morning fasting and as needed for hypoglycemia for 30 days Dec, Active Lovastatin 10 MG 1 tablet with the evening meal Orally Once a da y for 90 days Active Nebulizer - j44.9 as directed for 30 days Aug, Active Carvedilol 25 MG 1 tablet Orally Twice a day for 90 days Active Xanax 1 MG 1 tablet Orally Twice a day for 30 days Aug, Active Magnesium _ 1 capsule with a meal Orally Once a day Active Chlorthalidone 25 MG 1 tablet in the morning with food Orally Once a day for 90 days Sep, Active Loperamide HCl 2 MG 1 capsule as needed Orally three times a day for 90 days Active Tylenol Extra Strength 500 MG 1 tablet as needed Orally every 6 hrs Active [employer] Vero [place] - as directed intradermally Daily Dx: E11.9 for 999 days May, Active PreserVision AREDS - 2 capsules Orally Once a day Active Xanax 1MG 1 tablet Orally twice a day as needed for 30 days Active Losartan Potassium 25 MG 1 tablet Orally Once a day for 90 days Aug, Active PROCEDURES No Information RESULTS No Results REASON FOR VISIT xanax MEDICAL (GENERAL) HISTORY Type Description Date Medical [...] Treatment Notes Treatm ent Clinical Notes Aug, Anxiety (ICD-10 - F41.9) PLAN OF TREATMENT Medication Medication Name Sig Start Date Stop Date Chlorthalidone 25 MG 1 tablet in the morning with food Orally Once a day for 90 days Sep, Xanax 1MG 1 tablet Orally twice a day as needed for 30 day s Loperamide HCl 2 MG 1 capsule as needed Orally three times a day for 90 days Ropinirole HCl 0.5 MG 2 tablets Orally At bedtime for 90 days Lovastatin 10 MG 1 tablet with the evening meal Orally Once a da y for 90 days Insulin Syringe 31G X 5/16 as directed e11.9 intradermally b id for 90 days Jul, Cymbalta 60 MG 1 capsule Orally Every night for 90 days Losartan Potassium 25 MG 1 tablet Orally Once a day for 90 days Aug, Xanax 1 MG 1 tablet Orally Twice a day for 30 days Aug, Levothyroxine Sodium 125 MCG 1 tablet in the morning o n an empty stomach Orally Once a day for 90 days Jun, ReliOn 70/30 40 Units Subcutaneously Twice a day for 90 days Next Appt Details Provider Name:Beulah Eisenberg, 02:15:00 PM, [address] [facility], 1st Floor, [place], [address], Provider Name:Bryson Young, 2020-11-02 11:00:00 AM, [address] [place], [address], Insurance Providers Payer Name Payer Address Payer Phone Insured Name Patient Relati onship to Insured Coverage Start Date Coverage End Date [facility] [phone] [facility] [address] DANIELA SAXENA MEDICARE Part A and B [address] [facility] [address] DANIELA SAXENA
--- OUTSIDE RECORDS SUMMARY | 2020-10-01 12:04 | CCD ---
Author Author [facility] Organization [facility] Address Unknown Phone Unavailable Care Team Providers Care Train Starter Name Role Phone Bryson Young Unavailable PROBLEMS Type Condition ICD9-CM Code [id number] Code Onset Dates Condition S tatus SNOMED Code Notes Problem Type 2 diabetes mellitus without complications E11 .9 Active 977044023 Problem Chronic obstructive pulmonary disease, unspecified COPD ty pe J44.9 Active 97826631 Problem group home (current) use of insulin Z79.4 Activ e 402422767 Problem Other specified hypothyroidism E03.8 Active 4 3389292 Problem Tobacco use disorder F17.200 Active 507614404 Problem Chronic pain syndrome G89.4 Active 049789969 Problem History of bladder cancer Z85.51 Active 788540 004 Problem Malignant neoplasm of urinary bladder, unspecified site C67.9 Active 516213072 Problem Hypothyroidism, unspecified type E03.9 Active 82345623 Problem 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 9 Active 810789017 Problem Urinary (tract) obstruction N13.9 Active 7163 005 Problem Essential hypertension I10 Active 57784906 Problem Glaucoma, unspecified glaucoma type, unspecified lateralit y H40.9 Active 78765453 Problem Anxiety F41.9 Active 79507914 Problem Restless leg G25.81 Active 26607500 Problem Type 2 diabetes mellitus wit hout complication, without long-term current use of insulin E11.9 Active 374004946 ALLERGIES Allergen (clinical drug ingredient) Drug/Non Drug Allergy do cumented on EMR Reaction Allergy Type Onset Date Status Sulfa (for allergy use only) Mouth sores Drug Allergy Active Penicillin (For Allergies Use Only) Rash Drug Allerg y Active tetracycline Tetracycline HCl([facility] Code:[address]-64) Rash Drug Allergy Active ENCOUNTERS from 1941 to 2020-08-29 Encounter Location Date Provider Diagnosis [facility] [address] [place] [address] Aug, Bryson Young Anxiety F41.9 IMMUNIZATIONS Vaccine [...] Education Language: Question Answer Notes Languages spoken: Brazilian Evangelical: Question Answer Notes Evangelical 08 Lutheran Sexual Hx: Question Answer Notes Had sex [...] as needed Orally every 6 hrs Active [email or web address] Vero [place] - as directed intradermally Daily Dx: E11.9 [...] Details Provider Name:Beulah Eisenberg, 02:15:00 PM, [address] [facility], 1st Floor, [place], [address], Provider Name:Bryson Young, 2020-11-02 11:00:00 AM, [address] [place], [address], Insurance Providers Payer Name Payer Address Payer Phone Insured Name Patient Relati onship to Insured Coverage Start Date Coverage End Date MEDICARE Part A and B [address] [facility] [id number] DANIELA SAXENA [employer] OF [place] 090 590 [address] [facility] [address] DANIELA SAXENA
--- OUTSIDE RECORDS SUMMARY | 2020-10-01 12:04 | CCD ---
Author Author [facility] Organization [facility] Address Unknown Phone Unavailable Care Team Providers Care Lab Tech Name Role Phone Bryson Young Unavailable PROBLEMS Type Condition ICD9-CM Code EKF47-CA Code Onset Dates Condition S tatus SNOMED Code Notes Problem Type 2 diabetes mellitus without complications E11 .9 Active 341756847 Problem Chronic obstructive pulmonary disease, unspecified COPD ty pe J44.9 Active 19961483 Problem assisted (current) use of insulin Z79.4 Activ e 169238397 Problem Other specified hypothyroidism E03.8 Active 4 9805888 Problem Tobacco use disorder F17.200 Active 187863459 Problem Chronic pain syndrome G89.4 Active 553489714 Problem History of bladder cancer Z85.51 Active 606582 004 Problem Malignant neoplasm of urinary bladder, unspecified site C67.9 Active 178136561 Problem Hypothyroidism, unspecified type E03.9 Active 62092590 Problem 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 9 Active 321719967 Problem Urinary (tract) obstruction N13.9 Active 7163 005 Problem Essential hypertension I10 Active 01949962 Problem Glaucoma, unspecified glaucoma type, unspecified lateralit y H40.9 Active 84379676 Problem Anxiety F41.9 Active 08648004 Problem Restless leg G25.81 Active 90579851 Problem Type 2 diabetes mellitus wit hout complication, without long-term current use of insulin E11.9 Active 906205395 ALLERGIES Allergen (clinical drug ingredient) Drug/Non Drug Allergy do cumented on EMR Reaction Allergy Type Onset Date Status Sulfa (for allergy use only) Mouth sores Drug Allergy Active Penicillin (For Allergies Use Only) Rash Drug Allerg y Active tetracycline Tetracycline HCl([facility] Code:[address]-08) Rash Drug Allergy Active ENCOUNTERS from 1941 to 2020-08-29 Encounter Location Date Provider Diagnosis [facility] [address] [place] [address] Aug, Bryson Young Anxiety F41.9 IMMUNIZATIONS Vaccine [...] Education Language: Question Answer Notes Languages spoken: Mongolian Protestant: Question Answer Notes Protestant 08 Druze Sexual Hx: Question Answer Notes Had sex [...] as needed Orally every 6 hrs Active [facility] Vero [place] - as directed intradermally Daily Dx: E11.9 [...] Information RESULTS No Results REASON FOR VISIT refill MEDICAL (GENERAL) HISTORY Type Description Date Medical [...] Details Provider Name:Beulah Eisenberg, 02:15:00 PM, [address] [facility], 1st Floor, [place], [address], Provider Name:Bryson Young, 2020-11-02 11:00:00 AM, [address] [place], [address], Insurance Providers Payer Name Payer Address Payer Phone Insured Name Patient Relati onship to Insured Coverage Start Date Coverage End Date MEDICARE Part A and B [address] [facility] [id number] [phone] DANIELA SAXENA BCBS OF [place] 090 590 [address] [facility] [id number] DANIELA SAXENA
--- OUTSIDE RECORDS SUMMARY | 2020-10-01 12:04 | CCD ---
Author Author [facility] Organization [facility] Address Unknown Phone Unavailable Care Team Providers Care Preventative Maintenance Technician Name Role Phone Bryson Young Unavailable PROBLEMS Type Condition ICD9-CM Code [id number] Code Onset Dates Condition S tatus SNOMED Code Notes Problem Chronic obstructive pulmonary disease, unspecified COPD ty pe J44.9 Active 25078957 Problem Essential hypertension I10 Active 55378220 Problem Other specified hypothyroidism E03.8 Active 4 6436219 Problem Type 2 diabetes mellitus without complications E11 .9 Active 461235760 Problem Chronic pain syndrome G89.4 Active 365360996 Problem exterminator termite (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) use of insulin Z79.4 Activ e 757437831 Problem Malignant neoplasm of urinary bladder, unspecified site C67.9 Active 391546258 Problem Tobacco use disorder F17.200 Active 554154002 Problem Other chronic pain G89.29 Active 33746132 Problem Hypothyroidism, unspecified type E03.9 Active 25392265 Problem 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 Active 591124012 Problem Type 2 diabetes mellitus wit hout complication, without long-term current use of insulin E11.9 Active 797306377 Problem Urinary (tract) obstruction N13.9 Active 7163 005 Problem 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 Active 86986973 Problem History of bladder cancer Z85.51 Active 505387 004 Problem Macular degeneration, unspecified laterality, unspecif ied type H35.30 Active 651249211 Problem Glaucoma, unspecified glaucoma type, unspecified lateralit y H40.9 Active 13753330 Problem Anxiety F41.9 Active 00357658 Problem Restless leg G25.81 Active 30511620 ALLERGIES Allergen (clinical drug ingredient) Drug/Non Drug Allergy do cumented on EMR Reaction Allergy Type Onset Date Status Sulfa (for allergy use only) Mouth sores Drug Allergy Active Penicillin (For Allergies Use Only) Rash Drug Allerg y Active tetracycline Tetracycline HCl([facility] Code:[address]-36) Rash Drug Allergy Active ENCOUNTERS from 1941 to 2020-08-08 Encounter Location Date Provider [facility] [address] [place] [address] Jul, Bryson Young IMMUNIZATIONS Vaccine Route Administration Date [...] Education Language: Question Answer Notes Languages spoken: Slovak Muslim: Question Answer Notes Muslim 08 Mu-Ism Sexual Hx: Question Answer Notes Had sex [...] Notes Start Da te End Date Status Loperamide HCl 2 MG 1 capsule as needed Orally three times a day for 90 Active Losartan Potassium 25 MG 1 tablet Orally Once a day Aug Active Tylenol Extra Strength 500 MG 1 tablet as needed Orally every 6 hrs Active Spiriva Respimat 2.5 MCG/ACT 2 puffs Inhalation Once a day for 3 0 Days Jul, Not-Taking Lovastatin 10 MG 1 tablet with the evening meal Orally On ce a day for 30 day(s) Active GenTeal Tears 0.1-0.2-0.3 % 1 drop into both eyes Opht halmic As needed every day Active OneTouch UltraSoft Lancets - as directed Daily for 30 days Dec, Active Levothyroxine Sodium 112 MCG 1 tablet in the morning o n an empty stomach Orally Once a day for 90 days Aug, Not-Takin g Albuterol Sulfate (2.5 MG/3ML) 0.083% 3 ml as needed I nhalation every 8 hrs for 30 Days Aug, Not-Taking Oxycodone-Acetaminophen 5-325 MG 1 tablet as needed Orally every 6 hrs MMD 4 Not-Taking Umeclidinium [place] 62.5 MCG/INH 1 puff Inhalation Once a day f or 30 Days Aug, Not-Taking Nebulizer - j44.9 as directed for 30 days Aug, Active OneTouch Ultra Test - as directed In Vitro once in the morning fasting and as needed for hypoglycemia for 30 days Dec, Active Chlorthalidone 25 MG 1 tablet in the morning with food Orally Once a day for 90 days Sep, Active Cymbalta 60 MG 1 capsule Orally Every night for 90 Active Spiriva Respimat 1.25 MCG/ACT 2 puffs Inhalation Twice a day for 30 d ays Not-Taking Levothyroxine Sodium 125 MCG 1 tablet in the morning o n an empty stomach Orally Once a day for 90 days Jun, Active Xanax 1MG 1 tablet Orally twice a day as needed for 30 days Active ReliOn 70/30 40 Units Subcutaneously Twice a day Active Insulin Syringe 31G X 5/16 as directed E11.9 for 30 Days 0 Jul, Active Carvedilol 25 MG 1 tablet Orally Twice a day for 90 days Active Magnesium _ 1 capsule with a meal Orally Once a day Active Ropinirole HCl 0.5 MG 2 tablets Orally At bedtime for 90 days Active PreserVision AREDS - 2 capsules Orally Once a day Active Probiotic - 2 capsules Orally Once a day Active Fluocinolone Acetonide 0.01 % 1 application Externally Apply to entire scalp once weekly, leave on overnight, rinse in morning for 30 days Jun, Active Gabapentin 100 MG 1 capsule Orally take at nig ht first, then BID after 3 days, then TID after 3 more days for 30 Active FreeStyle Vero [place] - as directed intradermally Daily Dx: E11.9 for 999 days May, Active PROCEDURES No Information RESULTS No Results [...] Medication Name Sig Start Date Stop Date Cymbalta 60 MG 1 capsule Orally Every night for 90 Xanax 1MG 1 tablet Orally twice a day as needed for 30 day s Next Appt Details Provider Name:Bryson Young, 2020-08-22 01:30:00 PM, [address] [place], [address], Provider Name:Beulah Eisenberg, 02:15:00 PM, [address] [place] [address], [address] [place] [address], [place], [address], Insurance Providers Payer Name Payer Address Payer Phone Insured Name Patient Relati onship to Insured Coverage Start Date Coverage End Date [facility] [phone] [facility] [address] DANIELA SAXENA MEDICARE Part A and B [address] [place] [phone] DANIELA SAXENA
--- OUTSIDE RECORDS SUMMARY | 2020-10-01 12:04 | CCD ---
Author Author [facility] Organization [facility] Address Unknown Phone Unavailable Care Team Providers Care Food Runner Name Role Phone Haley Mackenzie Unavailable PROBLEMS Type Condition ICD9-CM Code [id number] Code Onset Dates Condition S tatus SNOMED Code Notes Problem Chronic obstructive pulmonary disease, unspecified COPD ty pe J44.9 Active 31119879 Problem Essential hypertension I10 Active 68565778 Problem Other specified hypothyroidism E03.8 Active 4 7712252 Problem Type 2 diabetes mellitus without complications E11 .9 Active 787493728 Problem Chronic pain syndrome G89.4 Active 300965915 Problem skilled nursing (current) use of insulin Z79.4 Activ e 788377634 Problem Malignant neoplasm of urinary bladder, unspecified site C67.9 Active 515437309 Problem Tobacco use disorder F17.200 Active 842573669 Problem Other chronic pain G89.29 Active 26153764 Problem Hypothyroidism, unspecified type E03.9 Active 94151972 Problem 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 Active 177151215 Problem Type 2 diabetes mellitus wit hout complication, without long-term current use of insulin E11.9 Active 778364562 Problem Urinary (tract) obstruction N13.9 Active 7163 005 Problem 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 Active 42064121 Problem History of bladder cancer Z85.51 Active 359425 004 Problem Macular degeneration, unspecified laterality, unspecif ied type H35.30 Active 583376814 Problem Glaucoma, unspecified glaucoma type, unspecified lateralit y H40.9 Active 33464718 Problem Anxiety F41.9 Active 73164482 Problem Restless leg G25.81 Active 55775780 ALLERGIES Allergen (clinical drug ingredient) Drug/Non Drug Allergy do cumented on EMR Reaction Allergy Type Onset Date Status Sulfa (for allergy use only) Mouth sores Drug Allergy Active Penicillin (For Allergies Use Only) Rash Drug Allerg y Active tetracycline Tetracycline HCl([facility] Code:[address]-80) Rash Drug Allergy Active ENCOUNTERS from 1941 to 2020-07-18 Encounter Location Date Provider Diagnosis [facility] [address] [place] [address] Jun, Haley Mackenzie IMMUNIZATIONS Vaccine Route Administration Date Status Influenza [...] Education Language: Question Answer Notes Languages spoken: Barbadian Worship: Question Answer Notes Worship 08 Amish Sexual Hx: Question Answer Notes Had sex [...] MEDICATIONS Medication SIG (Take, Route, Frequency, Duration) Start Date En d Date Status OneTouch UltraSoft Lancets - as directed Daily for 30 days Dec, Active Xanax 1MG 1 tablet Orally One time a day as needed for 30 Active Loperamide HCl 2 MG 1 capsule as needed Orally three times a day fo r 90 Active Losartan Potassium 25 MG 1 tablet Orally Once a day Aug, Active Oxycodone-Acetaminophen 5-325 MG 1 tablet as needed Orally every 6 hrs MMD 4 Not-Taking GenTeal Tears 0.1-0.2-0.3 % 1 drop into both eyes Opht halmic As needed every day Active Lovastatin 10 MG 1 tablet with the evening meal Orally On ce a day for 30 day(s) Active Levothyroxine Sodium 112 MCG 1 tablet in the morning o n an empty stomach Orally Once a day for 90 days Aug, Not-Taking Albuterol Sulfate (2.5 MG/3ML) 0.083% 3 ml as needed I nhalation every 8 hrs for 30 Days Aug, Not-Taking ReliOn 70/30 40 Units Subcutaneously Twice a day Active Umeclidinium [place] 62.5 MCG/INH 1 puff Inhalation Once a d ay for 30 Days Aug, Not-Taking OneTouch Ultra Test - as directed In Vitro once in the morning fasting and as needed for hypoglycemia for 30 days Dec, Acti ve Ropinirole HCl 0.5 MG 2 tablets Orally At bedtime for 90 days Active Cymbalta 60 MG 1 capsule Orally Every night for 90 days Active Magnesium _ 1 capsule with a meal Orally Once a day Active Insulin Syringe 31G X 5/16 as directed E11.9 for 30 Days Jul, Active Carvedilol 25 MG 1 tablet Orally Twice a day for 90 days Active Nebulizer - j44.9 as directed for 30 days Aug, Active Spiriva Respimat 1.25 MCG/ACT 2 puffs Inhalation Twice a day for 30 days Not-Taking Spiriva Respimat 2.5 MCG/ACT 2 puffs Inhalation Once a day f or 30 Days Jul, Not-Taking Chlorthalidone 25 MG 1 tablet in the morning with food Orally Once a day for 90 days Sep, Active Tylenol Extra Strength 500 MG 1 tablet as needed Orally every 6 hrs Active Levothyroxine Sodium 125 MCG 1 tablet in the morning o n an empty stomach Orally Once a day for 90 days Jun, Active PreserVision AREDS - 2 capsules Orally [...] after 3 more days for 30 Active Taglocity Vero [place] - as directed intradermally Daily Dx: E11.9 for 999 days May, Active PROCEDURES No Information RESULTS No Results REASON FOR VISIT reschedule MEDICAL (GENERAL) HISTORY Type Description Date Medical [...] Information ASSESSMENTS No Information PLAN OF TREATMENT Next Appt Details Provider Name:Beulah Bhatt Faina, 02:15:00 PM, [address] [place] [address], [address] [place] [address], [place], [address], Insurance Providers Payer Name Payer Address Payer Phone Insured Name Patient Relati onship to Insured Coverage Start Date Coverage End Date [facility] [phone] [facility] [address] DANIELA SAXENA MEDICARE Part A and B [address] [facility] [phone] DANIELA SAXENA
--- OUTSIDE RECORDS SUMMARY | 2020-10-01 12:04 | CCD | Continuity of Care Document ---
Author Malinda Palacios DPM Organization Unknown Address [address] [place] [address], [address] [place] [address] Phone [phone] Care Team Providers Care Heating And Ventilating Tender Name Role Phone Bryson Young DO AUTM [phone] Problems Active Problems Provider Date Pronation Shay Ruff DPM Onset: 10/17/2019 Type 2 diabetes mellitus with diabetic polyneuropathy Shay Ruff DPM Onset: 10/17/2019 Onychomycosis Shay Ruff DPM Onset: 10/17/2019 Corns and callosities Shay Ruff DPM Onset: 10/17/2019 Social History Type Date [...] 2-3 times daily as needed 1units Shay Ruff DPM 08/29/2020 Ciclopirox 8% Solution apply to affected nail(s) daily 6.6units Shay Ruff DPM 10/06/2019 Chlorthalidone 25mg Tablets MD Pearl, [...] Information Available Procedures Date Code Description Status 04/25/2020 82966 Debridement 6-10 Nails Electric Completed 04/25/2020 21446 Paring/Cut Benign Lesion 2 To 4 Completed Medical Devices Description No Information Available Encounters Type Date Location Provider Dx Diagnosis Office Visit 04/25/2020 2:45p [facility] Shay Ruff DPM M79.676 Pain in unspecified toe(s) E11.42 Type 2 diabetes mellitus wit h diabetic polyneuropathy B35.1 Tinea unguium L84 Corns and callosities Assessments Date Code Description Provider 04/25/2020 M79.676 Pain in unspecified toe(s) Rickey Ruff DPM 04/25/2020 E11.42 Type 2 diabetes mellitus with di abetic polyneuropathy Shay Ruff DPM 04/25/2020 B35.1 Tinea unguium Shay Ruff DPM 04/25/2020 L84 Corns and callosities Shay Ruff DPM Plan of Treatment Future Appointment(s):* 11/07/2020 2:30 pm - Shay Ruff DPM at [facility] Functional Status Description No Information Available Mental Status Description No Information Available Referrals Description No Information Available
--- OUTSIDE RECORDS SUMMARY | 2020-10-01 12:04 | CCD ---
Author Author [facility] Organization [facility] Address Unknown Phone Unavailable Care Team Providers Care Tree Inspector Name Role Phone Bryson Young Unavailable PROBLEMS Type Condition ICD9-CM Code ADO19-TA Code Onset Dates Condition S tatus SNOMED Code Notes Problem Type 2 diabetes mellitus without complications E11 .9 Active 450914605 Problem Chronic obstructive pulmonary disease, unspecified COPD ty pe J44.9 Active 09651433 Problem half-way (current) use of insulin Z79.4 Activ e 760183649 Problem Other specified hypothyroidism E03.8 Active 4 7688823 Problem Tobacco use disorder F17.200 Active 482782199 Problem Chronic pain syndrome G89.4 Active 858503432 Problem History of bladder cancer Z85.51 Active 489344 004 Problem Malignant neoplasm of urinary bladder, unspecified site C67.9 Active 709292642 Problem Hypothyroidism, unspecified type E03.9 Active 94744192 Problem 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 9 Active 234796847 Problem Urinary (tract) obstruction N13.9 Active 7163 005 Problem Essential hypertension I10 Active 21048454 Problem Glaucoma, unspecified glaucoma type, unspecified lateralit y H40.9 Active 06353514 Problem Anxiety F41.9 Active 02684735 Problem Restless leg G25.81 Active 66918340 Problem Type 2 diabetes mellitus wit hout complication, without long-term current use of insulin E11.9 Active 392540776 ALLERGIES Allergen (clinical drug ingredient) Drug/Non Drug Allergy do cumented on EMR Reaction Allergy Type Onset Date Status Sulfa (for allergy use only) Mouth sores Drug Allergy Active Penicillin (For Allergies Use Only) Rash Drug Allerg y Active tetracycline Tetracycline HCl([facility] Code:[address]-84) Rash Drug Allergy Active ENCOUNTERS from 1941 to 2020-08-26 Encounter Location Date Provider Diagnosis [facility] [address] [place] [address] May, Bryson Young Type 2 diabetes mellitus without complic ations E11.9 ; Hypothyroidism, unspecified type E03.9 ; Low back pain M54.5 ; Scalp lesion L98.9 ; Other chronic pain G89.29 ; Murmur R01.1 and Palpitations R00.2 IMMUNIZATIONS Vaccine Route Administration Date Status Influenza [...] Education Language: Question Answer Notes Languages spoken: Faroese Hoahaoism: Question Answer Notes Hoahaoism 08 Shinto Sexual Hx: Question Answer Notes Had sex [...] FOR REFERRAL No Information VITAL SIGNS Weight 201 lbs May, Height 60.5 in May, BMI 38.60 kg/m2 May, Heart Rate 73 /min May, Respiratory Rate 18 /min May, Temperature 96.9 degrees Fahrenheit May, Oximetry 94% May, Blood pressure systolic 127 mm Hg May, Blood pressure diastolic 73 mm Hg May, MEDICATIONS Medication SIG (Take, Route, Frequency, Duration) Notes Start Da te End Date Status Cymbalta 60 MG 1 capsule Orally Every night for 90 days Active Levothyroxine Sodium 125 MCG 1 tablet in the morning o n an empty stomach Orally Once a day for 90 days Jun, Active Ropinirole HCl 0.5 MG 2 tablets Orally At bedtime for 90 days Active Nebulizer - j44.9 as directed for 30 days Aug, Active Insulin Syringe 31G X 5/16 as directed e11.9 intradermally bid f or 90 days Jul, Active Fluocinolone Acetonide 0.01 % 1 application [...] Twice a day for 90 days Active Losartan Potassium 25 MG 1 tablet Orally Once a day for 90 days Aug, Active Magnesium _ 1 capsule with a meal Orally Once a day Active GenTeal Tears 0.1-0.2-0.3 % 1 drop into both eyes Opht halmic As needed every day Active Xanax 1 MG 1 tablet Orally Twice a day for 30 days Aug, Active Tylenol Extra Strength 500 MG 1 tablet as needed Orally every 6 hrs Active FreeStyle Vero [place] - as directed intradermally Daily Dx: E11.9 for 999 days May, Active PreserVision AREDS - 2 capsules Orally Once a day Active Chlorthalidone 25 MG 1 tablet in the morning with food Orally Once a day for 90 days Sep, Active ReliOn 70/30 40 Units Subcutaneously Twice a day for 90 days Active PROCEDURES No Information RESULTS Component Value Reference Range Basic Metabolic Profile (BMP) Reviewed date:06/27/2020 11:07:38 Interpretation:BUN 29, Cr 1.50, GFR 35.8 Performing Lab:[facility] [address] [facility] [address] , ,[place] [address] GLUCOSE, FASTING 89 70-100 BLOOD UREA NITROGEN 29 7-18 CREATININE FOR GFR 1.50 0.55-1.30 GLOMERULAR FILTRATION RATE 35.8 >39 SODIUM LEVEL 141 136-145 POTASSIUM SERUM 4.4 3.5-5.1 CHLORIDE LEVEL 101 98-107 CARBON DIOXIDE LEVEL 36 21-32 CALCIUM LEVEL 8.4 8.8-10.2 CBC with Differential Reviewed date:07/06/2020 17:19:15 Interpretation:Normal Performing Lab:[facility] [address] [facility] [address] , ,[place] [address] WHITE BLOOD COUNT 10.8 4.0-10.0 RED BLOOD COUNT 4.49 4.00-5.40 HEMOGLOBIN 13.0 12.0-15.5 HEMATOCRIT 44.3 36.0-47.0 MEAN CORPUSCULAR VOLUME 98.7 80.0-96.0 MEAN CORPUSCULAR HEMOGLOBIN 29.0 27.0-33.0 MEAN CORPUSCULAR HGB CONC 29.3 32.0-36.5 RED CELL DISTRIBUTION WIDTH 15.0 11.5-14.5 PLATELET COUNT, AUTOMATED 181 150-450 NEUTROPHILS % 66.9 36.0-66.0 LYMPH % 23.2 24.0-44.0 MONO % 5.9 0.0-5.0 EOS % 3.0 0.0-3.0 BASO % 0.5 0.0-1.0 NEUTROPHILS # 7.2 1.5-8.5 LYMPH # 2.5 1.5-5.0 MONO # 0.6 0.0-0.8 EOS # 0.3 0.0-0.5 BASO # 0.1 0.0-0.2 HEMOGLOBIN A1c Reviewed date:07/06/2020 17:19:15 Interpretation:Normal Performing Lab:[facility] [address] [facility] [address] , ,[place] [address] HEMOGLOBIN A1c 7.4 ESTIMATED AVERAGE GLUCOSE 166 60-110 LIPID PANEL (CARDIAC RISK) Reviewed date:07/06/2020 17:19:15 Interpretation:Normal Performing Lab:[facility] [address] [facility] [address] , ,[place] [address] TRIGLYCERIDES LEVEL 69 <150 CHOLESTEROL LEVEL 172 <200 HDL CHOLESTEROL 59 >40 LDL CHOLESTEROL 99 <100 NON-HDL-C 113 CHOLESTEROL RISK RATIO 2.915 <5 TSH Reviewed date:07/06/2020 17:19:15 Interpretation:Abnormal Performing Lab:[facility] [address] [facility] [address] , ,[place] [address] THYROID STIMULATING HORMONE 6.440 0.358-3.740 CREATININE,RANDOM URINE Reviewed date:08/25/2020 14:30:37 Interpretation: Performing Lab:[facility], [place] [address] CREATININE,RANDOM URINE MICROALBUMIN RANDOM Reviewed date:08/25/2020 14:30:29 Interpretation: Performing Lab:[facility], [place] [address] MICROALBUMIN RANDOM CREATININE URINE UR MICROALBUMIN ABELARDO/CREAT RATIO REASON FOR VISIT Follow up murmur, labs MEDICAL (GENERAL) HISTORY Type Description Date Medical [...] Notes Treatment Notes Treatm ent Clinical Notes May, Type 2 diabetes mellitus without complications ( ICD-10 - E11.9) Patient needs monitor for freestyle. Sent to pharmacy. Order labs repeat. Patient did not have paper copy given on 05/09/2020. Order given to patient. May, Hypothyroidism, unspecified type (ICD-10 - E03.9 ) Order given to patient. May, Low back pain (ICD-10 - M54.5) Recommend follow up with wilmer Walter for MRI results. Will look for results in fax. May, Scalp lesion (ICD-10 - L98.9) Referral was sent in March. However likely due to period of downtime that started end of March, will need to be resent. Will resend for patient. May, Other chronic pain (ICD-10 - G89.29) See low back pain May, Murmur (ICD-10 - R01.1) ECHO performed. Shows some mild aortic regurg and mitral regurg. EF 60-65. No symptoms of chest pain, shortness of breath. Monitor for now. May, Palpitations (ICD-10 - R00.2) Patient notes some palpitations on and off. Recommended cardiology consult due to symptoms. Patient refuse at this time. If worsen/ change call office and can send referral. If occur with chest pain, not improves to call office or go to ER. Understood. PLAN OF TREATMENT Medication Medication Name Sig Start Date Stop Date Lovastatin 10 MG 1 tablet with the evening meal Orally Once a da y for 90 days Chlorthalidone 25 MG 1 tablet in the morning with food Orally Once a day for 90 days Sep, Xanax 1 MG 1 tablet Orally Twice a day for 30 days Aug, Xanax 1MG 1 tablet Orally twice a day as needed for 30 day s Loperamide HCl 2 MG 1 capsule as needed Orally three times a day for 90 days Ropinirole HCl 0.5 MG 2 tablets Orally At bedtime for 90 days Insulin Syringe 31G X 5/16 as directed e11.9 intradermally b id for 90 days Jul, ReliOn 70/30 40 Units Subcutaneously Twice a day for 90 days Losartan Potassium 25 MG 1 tablet Orally Once a day for 90 days Aug, Cymbalta 60 MG 1 capsule Orally Every night for 90 days Levothyroxine Sodium 125 MCG 1 tablet in the morning o n an empty stomach Orally Once a day for 90 days Jun, Treatment Notes Assessment Notes Clinical Notes Type 2 diabetes mellitus without complications Patient needs monitor for freestyle. Sent to pharmacy.Order labs repeat. Patient did not have paper copy given on 05/09/2020. Order given to patient. Hypothyroidism, unspecified type Order g iven to patient. Low back pain Recommend follow up with wilmer Walter for MRI results. Will look for results in fax. Scalp lesion Referral was sent in March. However likely due to period of downtime that started end of March, will need to be resent. Will resend for patient. Other chronic pain See low back pain Murmur ECHO performed. Show s some mild aortic regurg and mitral regurg. EF 60- 65. No symptoms of chest pain, shortness of breath. Monitor for now. Palpitations Patient notes some p alpitations on and off. Recommended cardiology consult due to symptoms. Patient refuse at this time. If worsen/ change call office and can send referral. If occur with chest pain, not improves to call office or go to ER. Understood. Next Appt Details 1 month Reason:labs, DM Provider Name:Beulah Eisenberg, 02:15:00 PM, [address] [facility], [address] Floor, [place], [address], Provider Name:Bryson Young, 2020-11-02 11:00:00 AM, [address] [place], [address], Follow Up:1 monthMIREYA hoover Insurance Providers Payer Name Payer Address Payer Phone Insured Name Patient Relati onship to Insured Coverage Start Date Coverage End Date MEDICARE Part A and B [address] [facility] [phone] DANIELA SAXENA [facility] [phone] [facility] [id number] DANIELA SAXENA
--- OUTSIDE RECORDS SUMMARY | 2020-10-01 12:04 | CCD ---
Author Author [facility] Organization [facility] Address Unknown Phone Unavailable Care Team Providers Care Call Manager Name Role Phone Bryson Young Unavailable PROBLEMS Type Condition ICD9-CM Code [id number] Code Onset Dates Condition S tatus SNOMED Code Notes Problem Chronic obstructive pulmonary disease, unspecified COPD ty pe J44.9 Active 96865861 Problem Essential hypertension I10 Active 40658527 Problem Other specified hypothyroidism E03.8 Active 4 3782061 Problem Type 2 diabetes mellitus without complications E11 .9 Active 443801755 Problem Chronic pain syndrome G89.4 Active 856397078 Problem 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 Activ e 402074714 Problem Malignant neoplasm of urinary bladder, unspecified site C67.9 Active 991633681 Problem Tobacco use disorder F17.200 Active 014434711 Problem Other chronic pain G89.29 Active 66989507 Problem Hypothyroidism, unspecified type E03.9 Active 86585868 Problem 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 Active 623251842 Problem Type 2 diabetes mellitus wit hout complication, without long-term current use of insulin E11.9 Active 715872713 Problem Urinary (tract) obstruction N13.9 Active 7163 005 Problem 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 Active 60613707 Problem History of bladder cancer Z85.51 Active 002643 004 Problem Macular degeneration, unspecified laterality, unspecif ied type H35.30 Active 464251867 Problem Glaucoma, unspecified glaucoma type, unspecified lateralit y H40.9 Active 53016755 Problem Anxiety F41.9 Active 07583614 Problem Restless leg G25.81 Active 49442489 ALLERGIES Allergen (clinical drug ingredient) Drug/Non Drug Allergy do cumented on EMR Reaction Allergy Type Onset Date Status Sulfa (for allergy use only) Mouth sores Drug Allergy Active Penicillin (For Allergies Use Only) Rash Drug Allerg y Active tetracycline Tetracycline HCl([facility] Code:[address]-84) Rash Drug Allergy Active ENCOUNTERS from 1941 to 2020-08-05 Encounter [facility] Date [facility] [address] [place] [address] Jul, Bryson Young IMMUNIZATIONS Vaccine Route [...] Education Language: Question Answer Notes Languages spoken: Setswana Anglican: Question Answer Notes Anglican 08 Bahai Sexual Hx: Question Answer Notes Had sex [...] Notes Start Da te End Date Status OneTouch UltraSoft Lancets - as directed Daily for 30 days Dec, Active Xanax 1MG 1 tablet Orally One time a day as needed for 30 Active Loperamide HCl 2 MG 1 capsule as needed Orally three times a day for 90 Active Losartan Potassium 25 MG 1 tablet Orally Once a day Aug Active Oxycodone-Acetaminophen 5-325 MG 1 tablet as [...] Units Subcutaneously Twice a day Active Umeclidinium [place] 62.5 MCG/INH 1 puff Inhalation Once a day f or 30 Days Aug, Not-Taking OneTouch Ultra Test - as directed In Vitro once in the morning fasting and as needed for hypoglycemia for 30 days Dec, Active Ropinirole HCl 0.5 MG 2 tablets [...] a day for 30 d ays Not-Taking Spiriva Respimat 2.5 MCG/ACT 2 puffs Inhalation Once a day for 3 0 Days Jul, Not-Taking Chlorthalidone 25 MG 1 [...] after 3 more days for 30 Active Medivantix TechnologiesStyle Vero [place] - as directed intradermally Daily Dx: E11.9 for 999 days May, Active PROCEDURES No Information RESULTS No Results REASON FOR VISIT r/s appt MEDICAL (GENERAL) HISTORY Type Description Date Medical [...] PLAN OF TREATMENT Next Appt Details Provider Name:Bryson Young, 2020-08-22 01:30:00 PM, [address] [place], [address], Provider Name:Beulah Eisenberg, 02:15:00 PM, [address] [facility], 1[address], [place], [address], Insurance Providers Payer Name Payer Address Payer Phone Insured Name Patient Relati onship to Insured Coverage Start Date Coverage End Date MEDICARE Part A and B [address] [facility] [phone] DANIELA SAXENA [facility] [id number] [facility] [address] DANIELA SAXENA
--- OUTSIDE RECORDS SUMMARY | 2020-10-01 12:05 | CCD | Continuity of Care Document ---
Author Author Malinda LOPEZ P.AKyra Organization Unknown Address [address] [place] [address] Phone [phone] Care Team Providers Care Materials Scientist Name Role Phone Alonzo Kang MD AUTM [phone] Byrson Young AUTM [phone] Problems Active Problems Provider Date Type 2 diabetes mellitus Wu Craig MD Onset: 02/03/20 Essential hypertension Wu Craig MD Onset: 02/03/2020 Type 2 diabetes mellitus Wu Craig MD Onset: 02/03/20 Social History Type Date Description Comments Sex Unknown ETOH Use Denies alcohol use Tobacco Use Start: Unknown End: Unknown Patient is a former smoker 60 years Allergies, Adverse Reactions, Alerts Active Allergies Reaction Severity Comments Date sulfa drugs 02/03/2020 Penicillins 02/03/2020 Tetracycline 02/03/2020 Medications Active Medications SIG Qnty Indications Ordering Provide r Date Chlorthalidone 25mg Tablets Bryson Young Alprazolam 1mg Tablets Bryson Young Levothyroxine Sodium 112mcg Tablet s Take 1 Tablet By Mouth Once Daily In The Morning On An Empty Stomach Unknown Onetouch Ultra Strips Use 1 To Test Morning Blood Sugar And Once 2 Hours After Dinner Unknown Carvedilol 25mg Tablets Alonzo Kang MD Loperamide HCL 2mg Capsules Alonzo Kang MD Ropinirole HCL 0.5mg Tablets Alonzo Kang MD Losartan Potassium 25mg Tablets Alonzo Kang MD Albuterol Sulfate (2 .5mg/3ML) 0.083% Nebulizer Use 1 Vial In Nebulizer Every 8 Hours as Needed Unknown Peg-3350/Nacl/Na Bicarbonate/KCL 420gm Solution Rec Maynor Nieves MD 00 Duloxetine HCL 60mg Caps Alonzo Geronimo MD Ciclopirox 8% Solution Shay Ruff, CAMERON Tylenol 8 Hour 650mg Tablets ER Unknown Immunizations Description No Information Available Vital Signs Date Vital Result Comment 02/02/2020 3:11pm Height 58.75 inches 4'10.75" Weight 195.38 lb BMI (Body Mass Index) 39.8 kg/m2 Results Description No Information Available Procedures Date Code Description Status 02/02/2020 47172 X-Ray Spine Lumbosacral Complete Inc Bending Views Min Of 6 Completed 02/02/2020 18210 X-Ray Spine Cervical 6 Or More V iews Completed Medical Devices Description No Information Available Encounters Type Date Location Provider Dx Diagnosis Office Visit 06/23/2020 11:30a Pauldingtaj Lopez, P.A. M51.36 Other intervertebral disc degeneration, lumbar region M81.0 Age-related osteoporosis w/o current pathological fracture M47.896 Other spondylosis, lumbar re gion Office Visit 05/18/2020 3:00p Lakesha Craig MD M54.5 Low back pain M81.0 Age-related osteoporosis w/o current pathological fracture Office Visit 05/13/2020 6:00p Lakesha Craig MD M51.36 Other intervertebral disc degeneration, lumbar region Office Visit 03/07/2020 3:30p Lakesha Craig MD M54.2 Cervicalgia Z98.1 Arthrodesis status M47.896 Other spondylosis, lumbar re gion Office Visit 02/02/2020 3:15p Lakesha Craig MD M54.2 Cervicalgia Z98.1 Arthrodesis status M47.896 Other spondylosis, lumbar re gion Assessments Date Code Description Provider 06/23/2020 M51.36 Other intervertebral disc degene ration, lumbar region Wilian Lopez, P.A. 06/23/2020 M81.0 Age-related osteoporosis without current pathological fracture Alysha Catalan 06/23/2020 M47.896 Other spondylosis, lumbar region Alysha Catalan 05/18/2020 M54.5 Low back pain Wu Craig MD 05/18/2020 M81.0 Age-related osteoporosis without current pathological fracture Wu Craig MD 05/13/2020 M51.36 Other intervertebral disc degene ration, lumbar region Wu Craig MD 03/07/2020 M54.2 Cervicalgia Wu Craig MD 03/07/2020 Z98.1 Arthrodesis status Wu pham MD 03/07/2020 M47.896 Other spondylosis, lumbar region Wu Craig MD 02/02/2020 M54.2 Cervicalgia Wu Craig MD 02/02/2020 Z98.1 Arthrodesis status Wu pham MD 02/02/2020 M47.896 Other spondylosis, lumbar region Wu Craig MD Plan of Treatment Future Appointment(s):* 07/21/2020 4:00 pm - Alysha Catalan at [place] 06/23/2020 - Alysha Catalan* M51.36 Other intervertebral disc degeneration, lumbar region* Follow up:* 4-6 weeks back dale with mkm * M81.0 Age-related osteoporosis without current pathological fracture * M47.896 Other spondylosis, lumbar region Functional Status Description No Information Available Mental Status Description No Information Available Referrals Refer to Reason for Referral Status Appt Date Wu Craig MD REF NO AUTH REQUIRED FOR REF TO DR VICKY LAGOS TO TRANS NT Created [address] [facility], [address] [place] [id number] [phone]
--- OUTSIDE RECORDS SUMMARY | 2020-10-01 12:05 | CCD ---
Author Author [facility] Organization [facility] Address Unknown Phone Unavailable Care Team Providers Care See Supervisor Name Role Phone Beulah Eisenberg Unavailable PROBLEMS Type Condition ICD9-CM Code [id number] Code Onset Dates Condition S tatus SNOMED Code Notes Problem Chronic obstructive pulmonary disease, unspecified COPD ty pe J44.9 Active 68148585 Problem Essential hypertension I10 Active 00773955 Problem Other specified hypothyroidism E03.8 Active 4 2223980 Problem Type 2 diabetes mellitus without complications E11 .9 Active 901319336 Problem Chronic pain syndrome G89.4 Active 070450308 Problem 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 Activ e 623166624 Problem Malignant neoplasm of urinary bladder, unspecified site C67.9 Active 260714467 Problem Tobacco use disorder F17.200 Active 913032270 Problem Other chronic pain G89.29 Active 85990918 Problem Hypothyroidism, unspecified type E03.9 Active 67677840 Problem 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 Active 447467190 Problem Type 2 diabetes mellitus wit hout complication, without long-term current use of insulin E11.9 Active 240926481 Problem Urinary (tract) obstruction N13.9 Active 7163 005 Problem 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 Active 77889236 Problem History of bladder cancer Z85.51 Active 045702 004 Problem Macular degeneration, unspecified laterality, unspecif ied type H35.30 Active 400671687 Problem Glaucoma, unspecified glaucoma type, unspecified lateralit y H40.9 Active 20690837 Problem Anxiety F41.9 Active 86121598 Problem Restless leg G25.81 Active 13956917 ALLERGIES Allergen (clinical drug ingredient) Drug/Non Drug Allergy do cumented on EMR Reaction Allergy Type Onset Date Status Sulfa (for allergy use only) Mouth sores Drug Allergy Active Penicillin (For Allergies Use Only) Rash Drug Allerg y Active tetracycline Tetracycline HCl([facility] Code:[address]-43) Rash Drug Allergy Active ENCOUNTERS from 1941 to 2020-07-17 Encounter Location Date Provider Diagnosis 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 ; Atypical nevus of back D22.5 and Irritated nevus of scalp D22.4 IMMUNIZATIONS Vaccine Route Administration Date Status Influenza [...] Education Language: Question Answer Notes Languages spoken: Scottish Gnosticism: Question Answer Notes Gnosticism 08 Orthodox Sexual Hx: Question Answer Notes Had sex [...] FOR REFERRAL No Information VITAL SIGNS Weight 202.0 lbs Jun, Height 60.5 in Jun, BMI 38.80 kg/m2 Jun, Blood pressure systolic 122 mm Hg Jun, Blood pressure diastolic 76 mm Hg Jun, MEDICATIONS Medication SIG (Take, Route, Frequency, Duration) Start Date En d Date Status OneTouch UltraSoft Lancets - as directed Daily for 30 days Dec, Active Xanax 1MG 1 tablet Orally One time a day as needed for 30 Active Loperamide HCl 2 MG 1 capsule as needed Orally three times a day Active Losartan Potassium 25 MG 1 [...] Units Subcutaneously Twice a day Active Umeclidinium [place] 62.5 MCG/INH 1 puff Inhalation Once a [...] more days for 30 Active FreeStyle Vero [place] - as directed intradermally Daily Dx: E11.9 for 999 days May, Active PROCEDURES No Information RESULTS No Results REASON FOR VISIT SCALP LESION, DERM REFERRAL MEDICAL (GENERAL) HISTORY Type Description Date Medical [...] STATUS No Information ASSESSMENTS Encounter Date Diagnosis Notes Jun, Atypical nevus of back (ICD-10 - D22.5) Jun, Sebopsoriasis (ICD-10 - L40.8) Jun, Irritated nevus of scalp (ICD-10 - D22.4 ) Jun, Seborrheic keratoses (ICD-10 - L82.1) Jun, Lentigines (ICD-10 - L81.4) Jun, Seborrheic keratoses, inflamed (ICD-10 - L82.0) Jun, Asteatosis cutis (ICD-10 - L85.3) PLAN OF TREATMENT Treatment Notes Assessment Notes Clinical Notes Asteatosis cutis Explained importance of quicker and cooler showers, avoid hot showers. Discussed importance moisturizer use daily and to damp skin after showers. Recommend CeraVe/Cetaphil cream be applied head to toe. Recommend humidifier in bedroom during winter months. Seborrheic keratoses Benign Lesion Couns eling. The patient was extensively counseled regarding the benign nature of the lesion but that skin cancer may arise in this area just as it would anywhere on their skin. For that reason, return to clinic was recommended for any acute changes, itching, burning, or bleeding. The patient was educated that benign lesions are not a covered insurance benefit and treatment would be elective and cosmetic. They expressed understanding. Seborrheic keratoses, inflamed Cryothera py x [10] number of sites. Mcgill protocol was followed in compliance with [facility] standards. Patient was counseled regarding the indication for treatment (precancerous state for actinic keratosis or cosmetic reasons if done for seborrheic keratoses, acrochordons or warts) as well as, the method and expected results to include compromise of the skin barrier, bleeding, scarring/white area, redness at site, lesion recurrence, and pain. Patient was consented to the risks and benefits of the procedure and gave informed consent. Lesion(s) with locations as indicated in the physical examination were treated. Lesion(s) were treated with 2 cycles of liquid nitrogen with a thaw time of at least ten seconds. Therapy was applied in a pulsed fashion to minimize collateral tissue injury. Patient was instructed to use Vaseline ointment to the area(s) until healed. Patient tolerated the procedure well and left in stable condition. Pain before and after the procedure were assessed to not be significantly different than baseline. Lentigines Benign lesion. Benig n lesion counseling performed. Atypical nevus of back Procedure: Tangen tial Biopsy Mcgill protocol was followed in compliance with [facility] standards. The patient was educated on the potential risks and benefits of the procedure and gave his/her informed consent. Location of biopsy noted in the physical exam and images uploaded to the medical record. Area(s) treated with EtOH. Local anesthesia performed with <1mL of 1% lidocaine with epinephrine per site. Site(s) verified with patient via timeout utilizing patient name and date of . Biopsy/Biopsies performed. Dual site-specimen cup verification performed verbally between provider and clinic staff. Hemostasis achieved with hyfrecation or aluminum chloride/styptic. Closure: secondary intent. Petrolatum and bandage applied. Wound care instruction addressed with patient by provider or clinic staff and wound care handout given. Patient tolerated the procedure well and left in stable condition. Patient reports that his/her pain was well-managed. There was no noted significant difference from baseline pain score after procedure. Patient was educated to use acetaminophen 500mg up to 4 times daily. If not sufficient, patient was educated to re-present to the dermatology clinic or, if after hours, the emergency department. Patient was informed they would be notified in 10-14 days by telephone for all malignant conditions and scheduled for definitive management. Irritated nevus of scalp Procedure: Watt ential Biopsy Mcgill protocol was followed in compliance with [facility] standards. The patient was educated on the potential risks and benefits of the procedure and gave his/her informed consent. Location of biopsy noted in the physical exam and images uploaded to the medical record. Area(s) treated with EtOH. Local anesthesia performed with <1mL of 1% lidocaine with epinephrine per site. Site(s) verified with patient via timeout utilizing patient name and date of . Biopsy/Biopsies performed. Dual site-specimen cup verification performed verbally between provider and clinic staff. Hemostasis achieved with hyfrecation or aluminum chloride/styptic. Closure: secondary intent. Petrolatum and bandage applied. Wound care instruction addressed with patient by provider or clinic staff and wound care handout given. Patient tolerated the procedure well and left in stable condition. Patient reports that his/her pain was well-managed. There was no noted significant difference from baseline pain score after procedure. Patient was educated to use acetaminophen 500mg up to 4 times daily. If not sufficient, patient was educated to re-present to the dermatology clinic or, if after hours, the emergency department. Patient was informed they would be notified in 10-14 days by telephone for all malignant conditions and scheduled for definitive management. Next Appt Details 1 Year Reason:FBSE Provider Name:Beulah Eisenberg, 02:15:00 PM, [address] [facility], [address], [place], [address], Follow Up:1 YearFBSE Insurance Providers Payer Name Payer Address Payer Phone Insured Name Patient Relati onship to Insured Coverage Start Date Coverage End Date [facility] [phone] [facility] [place] [place] [id number] DANIELA SAXENA MEDICARE Part A and B [address] [facility] [address] [phone] DANIELA SAXENA
--- OUTSIDE RECORDS SUMMARY | 2020-10-01 12:05 | CCD ---
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 Activ e 340481780 Problem Other specified hypothyroidism E03.8 Active 4 0834453 Problem Tobacco use disorder F17.200 Active 343602830 Problem Chronic pain syndrome G89.4 Active 770294236 Problem Urinary (tract) obstruction N13.9 Active 7163 005 Problem Other chronic pain G89.29 Active 44242443 Problem Hypothyroidism, unspecified type E03.9 Active 35900037 Problem Restless leg G25.81 Active 57346894 Problem History of bladder cancer Z85.51 Active 863558 004 Problem Type 2 diabetes mellitus wit hout complication, without long-term current use of insulin E11.9 Active 271197746 Problem Malignant neoplasm of urinary bladder, unspecified site C67.9 Active 016433012 Problem 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 Active 405575879 Problem Macular degeneration, unspecified laterality, unspecif ied type H35.30 Active 499762616 Problem Glaucoma, unspecified glaucoma type, unspecified lateralit y H40.9 Active 85859291 Problem Anxiety F41.9 Active 22942114 ALLERGIES Allergen (clinical drug ingredient) Drug/Non Drug Allergy do cumented on EMR Reaction Allergy Type Onset Date Status Sulfa (for allergy use only) Mouth sores Drug Allergy Active Penicillin (For Allergies Use Only) Rash Drug Allerg y Active tetracycline Tetracycline HCl([facility] Code:[address]-35) Rash Drug Allergy Active ENCOUNTERS from 1940 to 2020-07-07 [facility]counter [facility] [address] [place] [address] Jun, Bryson Young Elevated serum creatinine R79.89 IMMUNIZATIONS Vaccine Route Administration Date Status Influenza (18 yrs & older) Flublok IM Intramuscular Jul 28, 2019 Administered SOCIAL HISTORY Tobacco Use: Social History Observation Description Date Details (start date - stop date) Former Smoker Sex Assigned At : Social History Observation Description Sex Assigned At Unknown Education: Question Answer Notes Level of Education: High School 10th grade Audit Question Answer Notes Total Score: 0 Interpretation: Alcohol Education Language: Question Answer Notes Languages spoken: Urdu Taoism: Question Answer Notes [employer] Sexual Hx: Question Answer Notes Had sex [...] Use: Question Answer Notes Are you a: former smoker 1ppd for 64 years How long has it been since you last smoked? 1-3 months REASON FOR REFERRAL No Information VITAL SIGNS No information MEDICATIONS Medication SIG (Take, Route, Frequency, Duration) Start Date En d Date Status Magnesium _ 1 capsule with a meal Orally Once a day Active Spiriva Respimat 1.25 MCG/ACT 2 puffs Inhalation Twice a day for 30 days Not-Taking Umeclidinium [place] 62.5 MCG/INH 1 puff Inhalation Once a d ay for 30 Days Aug, Not-Taking PreserVision AREDS - 2 capsules Orally Once a day Active Insulin Syringe 31G X 5/16 as directed E11.9 for 30 Days Jul, Active Oxycodone-Acetaminophen 5-325 MG 1 tablet as needed Orally every 6 hrs MMD 4 Not-Taking Losartan Potassium 25 MG 1 tablet Orally Once a day Aug, Active Probiotic - 2 capsules Orally Once a day Active ReliOn 70/30 40 Units Subcutaneously Twice a day Active Xanax 1 MG 1 tablet Orally One time a day as needed for 30 days Active Loperamide HCl 2 MG 1 capsule as needed Orally three times a day Active Ropinirole HCl 0.5 MG 2 tablets Orally At bedtime for 90 days Active Chlorthalidone 25 MG 1 tablet in the morning with food Orally Once a day for 90 days Sep, Active Tylenol Extra Strength 500 MG 1 tablet as needed Orally every 6 hrs Active GenTeal Tears 0.1-0.2-0.3 % 1 drop into both eyes Opht halmic As needed every day Active Nebulizer - j44.9 as directed for 30 days Aug, Active FreeStyle Vero Pierce - as directed intradermally Daily Dx: E11.9 for 999 days May, Active Lovastatin 10 MG 1 tablet with the evening meal Orally On ce a day for 30 day(s) Active Spiriva Respimat 2.5 MCG/ACT 2 puffs Inhalation Once a day f or 30 Days Jul, Not-Taking Cymbalta 60 MG 1 capsule Orally Every night for 90 days Active Albuterol Sulfate (2.5 MG/3ML) 0.083% 3 ml as needed I nhalation every 8 hrs for 30 Days Aug, Not-Taking OneTouch Ultra Test - as directed In Vitro once in the morning fasting and as needed for hypoglycemia for 30 days Dec, Acti ve Carvedilol 25 MG 1 tablet Orally Twice a day for 90 days Active Levothyroxine Sodium 125 MCG 1 tablet in the morning o n an empty stomach Orally Once a day for 90 days Jun, Active Gabapentin 100 MG 1 capsule Orally take at [facility] first, then BID after 3 days, then TID after 3 more days for 30 Active Levothyroxine Sodium 112 MCG 1 tablet in the morning o n an empty stomach Orally Once a day for 90 days Aug, Active OneTouch UltraSoft Lancets - as directed Daily for 30 days Dec, Active PROCEDURES No Information RESULTS No Results REASON FOR VISIT labs MEDICAL (GENERAL) HISTORY Type Description Date [...] Information ASSESSMENTS Encounter Date Diagnosis Notes Jun, Elevated serum creatinine (ICD-10 - R79. 89) PLAN OF TREATMENT Medication Medication Name Sig Start Date Stop Date Levothyroxine Sodium 125 MCG 1 tablet in the morning o n an empty stomach Orally Once a day for 90 days Jun, Levothyroxine Sodium 112 MCG 1 tablet in the morning o n an empty stomach Orally Once a day for 90 days Aug, Own Productse Pierce - as directed intradermally Daily Dx: E11.9 for 999 days May, Gabapentin 100 MG 1 capsule Orally take at [facility] first, then BID after 3 days, then TID after 3 more days for 30 Treatment Notes Test Name Order Date UA URINALYSIS 2020-07-07 Basic Metabolic Profile (BMP) 2020-07-07 Next Appt Details Provider Name:Beulah Eisenberg, 01:30:00 PM, [address] [place] [address], [address] [place] [address], [place], [address], Provider Name:Bryson Young, 2020-07-13 04:00:00 PM, [address] [place], [address], Provider Name:Haley Mackenzie, 2020-07-15 01 :00:00 PM, [address] [place] [address], [id number], Insurance Providers Payer Name Payer Address Payer Phone Insured Name Patient Relati onship to Insured Coverage Start Date Coverage End Date [facility] [id number] [facility] [address] DANIELA SAXENA MEDICARE Part A and B [address] [facility] [address] [phone] DANIELA SAXENA self
--- OUTSIDE RECORDS SUMMARY | 2020-10-01 12:06 | CCD ---
Author Author [facility] Organization [facility] Address Unknown Phone Unavailable Care Team Providers Care Ehs Specialist Name Role Phone Nova Craig MD Unavailable Unavailable Nova Craig MD Unavailable Unavailable Nova Craig MD Unavailable Unavailable Nova Craig MD Unavailable Unavailable Nova Craig MD Unavailable Unavailable RcaigNova villaseñor MD Unavailable Unavailable CraigNova villaseñor MD Unavailable Unavailable Nova Craig MD Unavailable Unavailable Nova Craig MD Unavailable Unavailable CraigNova villaseñor MD Unavailable Unavailable Nova Craig MD Unavailable Unavailable CraigNova villaseñor MD Unavailable Unavailable CraigNova villaseñor MD Unavailable Unavailable Nova Craig MD Unavailable Unavailable Nova Craig MD Unavailable Unavailable Nova Craig MD Unavailable Unavailable Nova Craig MD Unavailable Unavailable Nova Craig MD Unavailable Unavailable Nova Craig MD Unavailable Unavailable Nova Craig MD Unavailable Unavailable Nova Craig MD Unavailable Unavailable Nova Craig MD Unavailable Unavailable Nova Craig MD Unavailable Unavailable Nova Craig MD Unavailable Unavailable Nova Craig MD Unavailable Unavailable Nova Craig MD Unavailable Unavailable Nova Craig MD Unavailable Unavailable Nova Craig MD Unavailable Unavailable Nova Craig MD Unavailable Unavailable Nova Craig MD Unavailable Unavailable Nova Craig MD Unavailable Unavailable Nova Craig MD Unavailable Unavailable Nova Craig MD Unavailable Unavailable Nova Craig MD Unavailable Unavailable Nova Craig MD Unavailable Unavailable Nova Craig MD Unavailable Unavailable Nova Craig MD Unavailable Unavailable Nova Craig MD Unavailable Unavailable Nova Craig MD Unavailable Unavailable Craig, Nova Washburn MD Unavailable Unavailable Craig, Nova Washburn MD Unavailable Unavailable Craig, Nova Washburn MD Unavailable Unavailable Craig, Nova Washburn MD Unavailable Unavailable Craig, Nova Washburn MD Unavailable Unavailable Craig, Nova Washburn MD Unavailable Unavailable Craig, Nova Washburn MD Unavailable Unavailable Craig, Nova Washburn MD Unavailable Unavailable MAJAK, R CARLOS DPM Unavailable Unavailable MAJAK, R CARLOS DPM Unavailable Unavailable MAJAK, R CARLOS DPM Unavailable Unavailable MAJAK, R CARLOS DPM Unavailable Unavailable MAJAK, R CARLOS DPM Unavailable Unavailable MAJAK, R CARLOS DPM Unavailable Unavailable MAJAK, R CARLOS DPM Unavailable Unavailable MAJAK, R CARLOS DPM Unavailable Unavailable MAJAK, R CARLOS DPM Unavailable Unavailable MAJAK, R CARLOS DPM Unavailable Unavailable MAJAK, R CARLOS DPM Unavailable Unavailable MAJAK, R CARLOS DPM Unavailable Unavailable MAJAK, R CARLOS DPM Unavailable Unavailable MAJAK, R CARLOS DPM Unavailable Unavailable MAJAK, R CARLOS DPM Unavailable Unavailable MAJAK, R CARLOS DPM Unavailable Unavailable MAJAK, R CARLOS DPM Unavailable Unavailable MAJAK, R CARLOS DPM Unavailable Unavailable MAJAK, R CARLOS DPM Unavailable Unavailable MAJAK, R CARLOS DPM Unavailable Unavailable MAJAK, R CARLOS DPM Unavailable Unavailable MAJAK, R CARLOS DPM Unavailable Unavailable MAJAK, R CARLOS DPM Unavailable Unavailable MAJAK, R CARLOS DPM Unavailable Unavailable MAJAK, R CARLOS DPM Unavailable Unavailable MAJAK, R CARLOS DPM Unavailable Unavailable MAJAK, R CARLOS DPM Unavailable Unavailable MAJAK, R CARLOS DPM Unavailable Unavailable MAJAK, R CARLOS DPM Unavailable Unavailable MAJAK, R CARLOS DPM Unavailable Unavailable MCELHERAN, OSCAR PA Unavailable Unavailable MCELHERAN, OSCAR PA Unavailable Unavailable MCELHERAN, OSCAR PA Unavailable Unavailable MCELHERAN, OSCAR PA Unavailable Unavailable MCELHERAN, OSCAR PA Unavailable Unavailable MCELHERAN, OSCAR PA Unavailable Unavailable MCELHERAN, OSCAR PA Unavailable Unavailable MCELHERAN, OSCAR PA Unavailable Unavailable MCELHERAN, OSCAR PA Unavailable Unavailable MCELHERAN, OSCAR PA Unavailable Unavailable MCELHERAN, OSCAR PA Unavailable Unavailable MCELHERAN, OSCAR PA Unavailable Unavailable MCELHERAN, OSCAR PA Unavailable Unavailable MCELHERAN, OSCAR PA Unavailable Unavailable MCELHERAN, OSCAR PA Unavailable Unavailable MCELHERAN, OSCAR PA Unavailable Unavailable MCELHERAN, OSCAR PA Unavailable Unavailable MCELHERAN, OSCAR PA Unavailable Unavailable MCELHERAN, OSCAR PA Unavailable Unavailable MCELHERAN, OSCAR PA Unavailable Unavailable MCELHERAN, OSCAR PA Unavailable Unavailable MCELHERAN, OSCAR PA Unavailable Unavailable MCELHERAN, OSCAR PA Unavailable Unavailable MCELHERAN, OSCAR PA Unavailable Unavailable MCELHERAN, OSCAR PA Unavailable Unavailable MCELHERAN, OSCAR PA Unavailable Unavailable MCELHERAN, OSCAR PA Unavailable Unavailable MCELHERAN, OSCAR PA Unavailable Unavailable AGUILARAMY MD Unavailable Unavailable AGUILARAMY MD Unavailable Unavailable AGUILARAMY MD Unavailable Unavailable AGUILARAMY MD Unavailable Unavailable AGUILARAMY MD Unavailable Unavailable AGUILARAMY MD Unavailable Unavailable AGUILARAMY MD Unavailable Unavailable AGUILARAMY MD Unavailable Unavailable AGUILARAMY MD Unavailable Unavailable AGUILARAMY MD Unavailable Unavailable AGUILARAMY MD Unavailable Unavailable AGUILARAMY MD Unavailable Unavailable AGUILARAMY MD Unavailable Unavailable AGUILARAMY MD Unavailable Unavailable AGUILARAMY MD Unavailable Unavailable AGUILARAMY MD Unavailable Unavailable AGUILARAMY MD Unavailable Unavailable AGUILARAMY MD Unavailable Unavailable AGUILARAMY MD Unavailable Unavailable AGUILARAMY MD Unavailable Unavailable AGUILARAMY MD Unavailable Unavailable AGUILARAMY MD Unavailable Unavailable AGUILARAMY MD Unavailable Unavailable AGUILARAMY MD Unavailable Unavailable AGUILARAMY MD Unavailable Unavailable AGUILARAMY MD Unavailable Unavailable AGUILARAMY MD Unavailable Unavailable AGUILARAMY MD Unavailable Unavailable AGUILARAMY MD Unavailable Unavailable AGUILARAMY MD Unavailable Unavailable AGUILARAMY MD Unavailable Unavailable AGUILARAMY MD Unavailable Unavailable AGUILARAMY MD Unavailable Unavailable AGUILARAMY MD Unavailable Unavailable AGUILARAMY MD Unavailable Unavailable AGUILARAMY MD Unavailable Unavailable AGUILARAMY MD Unavailable Unavailable AGUILARAMY MD Unavailable Unavailable AGUILARAMY MD Unavailable Unavailable AGUILARAMY MD Unavailable Unavailable MCELHERAN, OSCAR PA Unavailable Unavailable MCELHERAN, OSCAR PA Unavailable Unavailable MCELHERAN, OSCAR PA Unavailable Unavailable MCELHERAN, OSCAR PA Unavailable Unavailable MCELHERAN, OSCAR PA Unavailable Unavailable MCELHERAN, OSCAR PA Unavailable Unavailable MCELHERAN, OSCAR PA Unavailable Unavailable MCELHERAN, OSCAR PA Unavailable Unavailable MCELHERAN, OSCAR PA Unavailable Unavailable MCELHERAN, OSCAR PA Unavailable Unavailable MCELHERAN, OSCAR PA Unavailable Unavailable MCELHERAN, OSCAR PA Unavailable Unavailable MCELHERAN, OSCAR PA Unavailable Unavailable MCELHERAN, OSCAR PA Unavailable Unavailable MCELHERAN, OSCAR PA Unavailable Unavailable MCELHERAN, OSCAR PA Unavailable Unavailable MCELHERAN, OSCAR PA Unavailable Unavailable MCELHERAN, OSCAR PA Unavailable Unavailable MCELHERAN, OSCAR PA Unavailable Unavailable MCELHERAN, OSCAR PA Unavailable Unavailable MCELHERAN, OSCAR PA Unavailable Unavailable MCELHERAN, OSCAR PA Unavailable Unavailable MCELHERAN, OSCAR PA Unavailable Unavailable MCELHERAN, OSCAR PA Unavailable Unavailable MCELHERAN, OSCAR PA Unavailable Unavailable MCELHERAN, OSCAR PA Unavailable Unavailable MCELHERAN, OSCAR PA Unavailable Unavailable MCELHERAN, OSCAR PA Unavailable Unavailable Craig, Nova Washburn MD Unavailable Unavailable Craig, Nova Washburn MD Unavailable Unavailable Craig, Nova Washburn MD Unavailable Unavailable Craig, Nova Washburn MD Unavailable Unavailable Craig, Nova Washburn MD Unavailable Unavailable Craig, Nova Washburn MD Unavailable Unavailable Craig, Nova Washburn MD Unavailable Unavailable Craig, Nova Washburn MD Unavailable Unavailable Craig, Nova Washburn MD Unavailable Unavailable Craig, Nova Washburn MD Unavailable Unavailable Craig, Nova Washburn MD Unavailable Unavailable Craig, Nova Washburn MD Unavailable Unavailable Craig, Nova Washburn MD Unavailable Unavailable Craig, Nova Washburn MD Unavailable Unavailable Craig, Nova Washburn MD Unavailable Unavailable Craig, Nova Washburn MD Unavailable Unavailable Craig, Nova Washburn MD Unavailable Unavailable Craig, Nova Washburn MD Unavailable Unavailable Craig, Nova Washburn MD Unavailable Unavailable Craig, Nova Washburn MD Unavailable Unavailable Craig, Nova Washburn MD Unavailable Unavailable Craig, Nova Washburn MD Unavailable Unavailable Craig, Nova Washburn MD Unavailable Unavailable Craig, Nova Washburn MD Unavailable Unavailable Craig, Nova Washburn MD Unavailable Unavailable Craig, Nova Washburn MD Unavailable Unavailable Craig, Nova Washburn MD Unavailable Unavailable Craig, Nova aWshburn MD Unavailable Unavailable Craig, Nova Washburn MD Unavailable Unavailable Craig, Nova Washburn MD Unavailable Unavailable Craig, Nova Washburn MD Unavailable Unavailable Craig, Nova Washburn MD Unavailable Unavailable Craig, Nova Washburn MD Unavailable Unavailable Craig, L Wu MD Unavailable Unavailable Craig, L Wu MD Unavailable Unavailable Craig, L Wu MD Unavailable Unavailable Craig, L Wu MD Unavailable Unavailable Craig, L Wu MD Unavailable Unavailable Craig, L Wu MD Unavailable Unavailable Craig, L Wu MD Unavailable Unavailable Craig, L Wu MD Unavailable Unavailable Craig, L Wu MD Unavailable Unavailable Craig, L Wu MD Unavailable Unavailable Craig, L Wu MD Unavailable Unavailable Craig, L Wu MD Unavailable Unavailable Craig, L Wu MD Unavailable Unavailable Craig, L Wu MD Unavailable Unavailable Re-disclosure Warning The records that you are about to access may contain information from federally-assisted alcohol or drug abuse programs. If such information is present, then the following federally mandated warning applies: This information has been disclosed to you from records protected by federal confidentiality rules (42 CFR part 2). The federal rules prohibit you from making any further disclosure of this information unless further disclosure is expressly permitted by the written consent of the person to whom it pertains or as otherwise permitted by 42 CFR part 2. A general authorization for the release of medical or other information is NOT sufficient for this purpose. The Federal rules restrict any use of the information to criminally investigate or prosecute any alcohol or drug abuse patient.The records that you are about to access may contain highly sensitive health information, the redisclosure of which is protected by Article 27-F of the [facility] Public Health law. If you continue you may have access to information: Regarding HIV / AIDS; Provided by facilities licensed or operated by the [facility] Office of Mental Health; or Provided by the [facility] Office for People With Developmental Disabilities. If such information is present, then the following [facility] mandated warning applies: This information has been disclosed to you from confidential records which are protected by state law. State law prohibits you from making any further disclosure of this information without the specific written consent of the person to whom it pertains, or as otherwise permitted by law. Any unauthorized further disclosure in violation of state law may result in a fine or correction sentence or both. A general authorization for the release of medical or other information is NOT sufficient authorization for further disc losure. Allergies and Adverse Reactions Type Description Substance Reaction Status Data Source(s ) tetracycline Tetracycline HCl Tetracycline Rash Active [facility] ([facility]) Encounters Encounter Providers Location Date Indications Data Source(s ) [place] [address] [facility] [place] [address] 09/21/2020 12:00:00 AM EST [facility]CW1 ([facility] [place] [address] [address] 09/19/2020 12:00:00 AM EST eCW1 ([facility]) [place] [address] [address] 09/02/2020 12:00:00 AM EST eCW1 ([facility]) Outpatient Attender: OSCAR FULLER PAConsultant: RANDELL SAAB MD 08/29/2020 12:11:[address] [facility] [place] [address] [address] 08/26/2020 12:00:00 AM EST eCW1 ([facility]) [place] [address] [address] 08/22/2020 12:00:00 AM EST eCW1 ([facility]) [place] [address] [address] 08/22/2020 12:00:00 AM EST eCW1 ([facility]) [place] [address] [address] 08/22/2020 12:00:00 AM EST eCW1 ([facility]) [place] [address] [address] 08/08/2020 12:00:00 AM EST eCW1 ([facility]) [place] [address] [address] 07/18/2020 12:00:00 AM EST eCW1 ([facility]) [place] [address] [address] 07/14/2020 12:00:00 AM EDT eCW1 ([facility]) [place] [address] [address] 07/08/2020 12:00:00 AM EDT eCW1 ([facility]) [place] [address] [address] 06/28/2020 12:00:00 AM ED[facility] [place] [address] [address] 06/27/2020 12:00:00 AM EDT [facility]) Unknown [address] [facility] [place] [address] 06/27/2020 12:00:00 AM EDT [facility]CW1 [facility]) Outpatient Attender: OSCAR SILVER Physical Therapy 06/23/2020 11:30:00 AM EDT [facility] ([facility]) Outpatient [address] [facility] Y [address] 06/15/2020 12:00:00 AM EDT [facility]CW1 [facility]) Unknown [address] [facility] Y [address] 06/15/2020 12:00:00 AM EDT [facility]CW1 [facility]) Outpatient Attender: Wu Craig MD Physical Therapy 05/18/2020 0 3:00:00 PM EDT [facility] ([facility]) Office Visit Attender: Wu Craig MD Physical Therapy 2019 06:00:00 PM EDT [facility] ([facility]) Outpatient Attender: CARLOS PATEL [facility] Office 04/16 02:45:00 PM EDT [facility] ([facility] [place] [address] [address] 04/06/2020 12:00:00 AM EDT [facility]CW1 [facility]) Outpatient [address] [facility] [place] [address] 03/28/2020 12:00:00 AM EDT [facility]CW1 [facility]) Outpatient Attender: Wu Craig MD Physical Therapy 03/07/2020 0 3:30:00 PM EDT MED[facility] ([facility]) Outpatient Referrer: Wu Craig MD 03/07/2020 09:47:00 AM EDT [facility] Outpatient Referrer: Wu Craig MD 03/07/2020 09:28:00 AM EDT [facility] Outpatient Referrer: Wu Craig MD 02/22/2020 04:08:00 PM EDT [facility] Outpatient Referrer: Wu Craig MD 02/22/2020 04:07:00 PM EDT [facility] Outpatient Referrer: Wu Craig MD 02/22/2020 04:06:00 PM EDT [facility] [place] [address] [address] 02/20/2020 12:00:00 AM EDT [facility]CW1 [facility]) [place] [address] [address] 02/12/2020 12:00:00 AM EDT [facility]CW1 [facility]) [facility] [place] [address] [address] 02/12/2020 12:00:00 AM EDT [facility]CW1 [facility]) Outpatient Referrer: Wu Craig MD 02/10/2020 09:05:00 AM EDT [facility] [address] [address] 02/09/2020 12:00:00 AM EDT [facility]CW1 [facility]) Outpatient Referrer: Wu Craig MD 02/05/2020 01:15:00 PM EDT [facility] Outpatient 02/05/2020 01:13:00 PM EDT [facility] Outpatient 02/05/2020 12:30:00 PM EDT [facility] [address] [address] 02/05/2020 12:00:00 AM EDT eCW1 [facility]) Outpatient Attender: Wu Craig MD Physical Therapy 02/02/2020 0 3:15:00 PM EDT [facility] ([facility]) [facility] [place] [address] [address] 02/01/2020 12:00:00 AM EDT eCW1 [facility]) [facility] [address] [address] 01/31/2020 12:00:00 AM EDT eCW1 ([facility]) [facility] [place] [address] [address] 01/22/2020 12:00:00 AM EDT eCW1 [facility] [place] [address] [address] 01/11/2020 12:00:00 AM EDT eCW1 ([facility]) [facility] [place] [address] [address] 01/09/2020 12:00:00 AM EDT [facility] [place] [address] [address] 12/28/2019 12:00:00 AM EDT [facility] [address] [address] 12/28/2019 12:00:00 AM EDT [facility] [address] [address] 12/23/2019 12:00:00 AM EDT [facility] [address] [address] 11/24/2019 12:00:00 AM EDT [facility] [place] Outpatient 11/23/2019 01:27:00 PM EDT [facility] [address] [address] 11/20/2019 12:00:00 AM EST [facility]CW1 [facility] [address] [address] 11/19/2019 12:00:00 AM EST [facility] [place] [address] [address] 11/12/2019 12:00:00 AM EST eCW1 ([facility]) [facility] [place] [address] [address] 11/10/2019 12:00:00 AM EST eCW1 ([facility]) [facility] [place] [address] [address] 11/05/2019 12:00:00 AM EST eCW1 ([facility]) [facility] [address] [address] 11/04/2019 12:00:00 AM EST eCW1 ([facility]) [facility] [address] [address] 10/21/2019 12:00:00 AM EST eCW1 ([facility]) [facility] [address] [address] 10/20/2019 12:00:00 AM EST eCW1 ([facility]) [facility] [address] [address] 2019 12:00:00 AM EST eCW1 ([facility]) [facility] [address] [address] 10/14/2019 12:00:00 AM EST eCW1 ([facility]) [facility] [address] [address] 10/14/2019 12:00:00 AM EST eCW1 ([facility]) [facility] [address] [address] 09/30/2019 12:00:00 AM EST eCW1 ([facility]) [facility] [address] [address] 09/29/2019 12:00:00 AM EST eCW1 ([facility]) [facility] [address] [address] 09/22/2019 12:00:00 AM EST eCW1 ([facility]) [facility] [address] [address] 09/13/2019 12:00:00 AM EST eCW1 ([facility]) [facility] [address] [address] 09/10/2019 12:00:00 AM EST eCW1 ([facility]) [facility] [address] [address] 09/02/2019 12:00:00 AM EST eCW1 ([facility]) [facility] [address] [address] 09/02/2019 12:00:00 AM EST eCW1 ([facility]) [facility] [address] [address] 09/02/2019 12:00:00 AM EST eCW1 ([facility]) [facility] [address] [address] 09/02/2019 12:00:00 AM EST eCW1 ([facility]) [facility] [address] [address] 08/27/2019 12:00:00 AM EST eCW1 ([facility]) [facility] [address] [address] 08/26/2019 12:00:00 AM EST eCW1 ([facility]) [facility] [address] [address] 08/25/2019 12:00:00 AM EST eCW1 ([facility]) [facility] [address] [address] 08/21/2019 12:00:00 AM EST eCW1 ([facility]) [facility] [address] [address] 08/10/2019 12:00:00 AM EST [facility] [address] [address] 08/07/2019 12:00:00 AM EST eCW1 ([facility]) Immunizations Vaccine Date Status Description Data Source(s) influenza, recombinant, quadrIvalent,injectable, prese rvative free 08/22/2020 02:36:00 PM EST completed eCW1 ([facility]) influenza, recombinant, quadrIvalent,injectable, prese rvative free 08/22/2020 02:36:00 PM EST completed eCW1 ([facility]) influenza, recombinant, quadrIvalent,injectable, prese rvative free 08/22/2020 02:36:00 PM EST completed eCW1 ([facility]) influenza, recombinant, quadrIvalent,injectable, prese rvative free 08/22/2020 02:36:00 PM EST completed eCW1 ([facility]) influenza, recombinant, quadrIvalent,injectable, prese rvative free 08/22/2020 02:36:00 PM EST completed eCW1 ([facility]) influenza, recombinant, quadrIvalent,injectable, prese rvative free 08/22/2020 02:36:00 PM EST completed eCW1 ([facility]) influenza, recombinant, quadrIvalent,injectable, prese rvative free 08/22/2020 02:36:00 PM EST completed eCW1 ([facility]) influenza, recombinant, quadrIvalent,injectable, prese rvative free 08/22/2020 02:36:00 PM EST completed eCW1 ([facility]) Medications Medication Brand Name Start Date Product Form Dose Route Admi nistrative Instructions Pharmacy Instructions Status Indications Reaction Description Data Source(s) FreeStyle Vero 14 Day Sensor - FreeStyle Vero 14 Day Senso r - 09/19/2020 12:00:00 AM EST active FreeStyl e Vero 14 Day Sensor - eCW1 ([facility]) FreeStyle Vero 14 Day Sensor - FreeStyle Vero 14 Day Senso r - 09/19/2020 12:00:00 AM EST active FreeStyl e Vero 14 Day Sensor - eCW1 ([facility]) FreeStyle Vero 14 Day Sensor - FreeStyle Vero 14 Day Senso r - 09/19/2020 12:00:00 AM EST active FreeStyl e Vero 14 Day Sensor - eCW1 ([facility]) Lidocaine Hydrochloride 40 MG/ML Topical Cream Aspercreme W/ Lidocaine 08/29/2020 12:00:00 AM EST active [facility] Alprazolam 1 MG Oral Tablet [Xanax] Xanax 1 MG Xanax 1 MG 08/22/2020 12:00:00 AM EST 1.0 {tablet} active Xanax 1 MG eCW1 ([facility]) Alprazolam 1 MG Oral Tablet [Xanax] Xanax 1 MG Xanax 1 MG 08/22/2020 12:00:00 AM EST 1.0 {tablet} active Xanax 1 MG eCW1 ([facility]) Alprazolam 1 MG Oral Tablet [Xanax] Xanax 1 MG Xanax 1 MG 08/22/2020 12:00:00 AM EST 1.0 {tablet} active Xanax 1 MG eCW1 ([facility]) Alprazolam 1 MG Oral Tablet [Xanax] Xanax 1 MG Xanax 1 MG 08/22/2020 12:00:00 AM EST 1.0 {tablet} active Xanax 1 MG eCW1 ([facility]) Alprazolam 1 MG Oral Tablet [Xanax] Xanax 1 MG Xanax 1 MG 08/22/2020 12:00:00 AM EST 1.0 {tablet} active Xanax 1 MG eCW1 ([facility]) Alprazolam 1 MG Oral Tablet [Xanax] Xanax 1 MG Xanax 1 MG 08/22/2020 12:00:00 AM EST 1.0 {tablet} active Xanax 1 MG eCW1 ([facility]) Alprazolam 1 MG Oral Tablet [Xanax] Xanax 1 MG Xanax 1 MG 08/22/2020 12:00:00 AM EST 1.0 {tablet} active Xanax 1 MG eCW1 ([facility]) Alprazolam 1 MG Oral Tablet [Xanax] Xanax 1 MG Xanax 1 MG 08/22/2020 12:00:00 AM EST 1.0 {tablet} active Xanax 1 MG eCW1 ([facility]) Fluocinolone Acetonide 0.1 MG/ML Topical Solution Fluo cinolone Acetonide 0.01 % Fluocinolone Acetonide 0.01 % 07/08/2020 12:00:00 AM EDT 1.0 {appli cation} active Fluocinolone Acetonide 0. 01 % eCW1 ([facility]) Fluocinolone Acetonide 0.1 MG/ML Topical Solution Fluo cinolone Acetonide 0.01 % Fluocinolone Acetonide 0.01 % 07/08/2020 12:00:00 AM EDT 1.0 {appli cation} active Fluocinolone Acetonide 0. 01 % eCW1 ([facility]) Fluocinolone Acetonide 0.1 MG/ML Topical Solution Fluo cinolone Acetonide 0.01 % Fluocinolone Acetonide 0.01 % 07/08/2020 12:00:00 AM EDT 1.0 {appli cation} active Fluocinolone Acetonide 0. 01 % eCW1 ([facility]) Fluocinolone Acetonide 0.1 MG/ML Topical Solution Fluo cinolone Acetonide 0.01 % Fluocinolone Acetonide 0.01 % 07/08/2020 12:00:00 AM EDT 1.0 {appli cation} active Fluocinolone Acetonide 0. 01 % eCW1 ([facility]) Fluocinolone Acetonide 0.1 MG/ML Topical Solution Fluo cinolone Acetonide 0.01 % Fluocinolone Acetonide 0.01 % 07/08/2020 12:00:00 AM EDT 1.0 {appli cation} active Fluocinolone Acetonide 0. 01 % eCW1 ([facility]) Fluocinolone Acetonide 0.1 MG/ML Topical Solution Fluo cinolone Acetonide 0.01 % Fluocinolone Acetonide 0.01 % 07/08/2020 12:00:00 AM EDT 1.0 {appli cation} active Fluocinolone Acetonide 0. 01 % eCW1 ([facility]) Fluocinolone Acetonide 0.1 MG/ML Topical Solution Fluo cinolone Acetonide 0.01 % Fluocinolone Acetonide 0.01 % 07/08/2020 12:00:00 AM EDT 1.0 {appli cation} active Fluocinolone Acetonide 0. 01 % eCW1 ([facility]) Fluocinolone Acetonide 0.1 MG/ML Topical Solution Fluo cinolone Acetonide 0.01 % Fluocinolone Acetonide 0.01 % 07/08/2020 12:00:00 AM EDT 1.0 {appli cation} active Fluocinolone Acetonide 0. 01 % eCW1 ([facility]) Fluocinolone Acetonide 0.1 MG/ML Topical Solution Fluo cinolone Acetonide 0.01 % Fluocinolone Acetonide 0.01 % 07/08/2020 12:00:00 AM EDT 1.0 {appli cation} active Fluocinolone Acetonide 0. 01 % eCW1 ([facility]) Fluocinolone Acetonide 0.1 MG/ML Topical Solution Fluo cinolone Acetonide 0.01 % Fluocinolone Acetonide 0.01 % 07/08/2020 12:00:00 AM EDT 1.0 {appli cation} active Fluocinolone Acetonide 0. 01 % eCW1 ([facility]) Fluocinolone Acetonide 0.1 MG/ML Topical Solution Fluo cinolone Acetonide 0.01 % Fluocinolone Acetonide 0.01 % 07/08/2020 12:00:00 AM EDT 1.0 {appli cation} active Fluocinolone Acetonide 0. 01 % eCW1 ([facility]) Fluocinolone Acetonide 0.1 MG/ML Topical Solution Fluo cinolone Acetonide 0.01 % Fluocinolone Acetonide 0.01 % 07/08/2020 12:00:00 AM EDT 1.0 {appli cation} active Fluocinolone Acetonide 0. 01 % eCW1 ([facility]) Levothyroxine Sodium 0.125 MG Oral Tablet Levothyroxin e Sodium 125 MCG Levothyroxine Sodium 125 MCG 06/27/2020 12:00:00 AM EDT active Levothyroxine Sodium 125 MCG eCW1 ([facility]) Levothyroxine Sodium 0.125 MG Oral Tablet Levothyroxin e Sodium 125 MCG Levothyroxine Sodium 125 MCG 06/27/2020 12:00:00 AM EDT active Levothyroxine Sodium 125 MCG eCW1 ([facility]) Levothyroxine Sodium 0.125 MG Oral Tablet Levothyroxin e Sodium 125 MCG Levothyroxine Sodium 125 MCG 06/27/2020 12:00:00 AM EDT active Levothyroxine Sodium 125 MCG eCW1 ([facility]) Levothyroxine Sodium 0.125 MG Oral Tablet Levothyroxin e Sodium 125 MCG Levothyroxine Sodium 125 MCG 06/27/2020 12:00:00 AM EDT active Levothyroxine Sodium 125 MCG eCW1 ([facility]) Levothyroxine Sodium 0.125 MG Oral Tablet Levothyroxin e Sodium 125 MCG Levothyroxine Sodium 125 MCG 06/27/2020 12:00:00 AM EDT active Levothyroxine Sodium 125 MCG eCW1 ([facility]) Levothyroxine Sodium 0.125 MG Oral Tablet Levothyroxin e Sodium 125 MCG Levothyroxine Sodium 125 MCG 06/27/2020 12:00:00 AM EDT active Levothyroxine Sodium 125 MCG eCW1 ([facility]) Levothyroxine Sodium 0.125 MG Oral Tablet Levothyroxin e Sodium 125 MCG Levothyroxine Sodium 125 MCG 06/27/2020 12:00:00 AM EDT active Levothyroxine Sodium 125 MCG eCW1 ([facility]) Levothyroxine Sodium 0.125 MG Oral Tablet Levothyroxin e Sodium 125 MCG Levothyroxine Sodium 125 MCG 06/27/2020 12:00:00 AM EDT active Levothyroxine Sodium 125 MCG eCW1 ([facility]) Levothyroxine Sodium 0.125 MG Oral Tablet Levothyroxin e Sodium 125 MCG Levothyroxine Sodium 125 MCG 06/27/2020 12:00:00 AM EDT active Levothyroxine Sodium 125 MCG eCW1 ([facility]) Levothyroxine Sodium 0.125 MG Oral Tablet Levothyroxin e Sodium 125 MCG Levothyroxine Sodium 125 MCG 06/27/2020 12:00:00 AM EDT active Levothyroxine Sodium 125 MCG eCW1 ([facility]) Levothyroxine Sodium 0.125 MG Oral Tablet Levothyroxin e Sodium 125 MCG Levothyroxine Sodium 125 MCG 06/27/2020 12:00:00 AM EDT active Levothyroxine Sodium 125 MCG eCW1 ([facility]) Levothyroxine Sodium 0.125 MG Oral Tablet Levothyroxin e Sodium 125 MCG Levothyroxine Sodium 125 MCG 06/27/2020 12:00:00 AM EDT active Levothyroxine Sodium 125 MCG eCW1 ([facility]) Levothyroxine Sodium 0.125 MG Oral Tablet Levothyroxin e Sodium 125 MCG Levothyroxine Sodium 125 MCG 06/27/2020 12:00:00 AM EDT active Levothyroxine Sodium 125 MCG eCW1 ([facility]) Levothyroxine Sodium 0.125 MG Oral Tablet Levothyroxin e Sodium 125 MCG Levothyroxine Sodium 125 MCG 06/27/2020 12:00:00 AM EDT active Levothyroxine Sodium 125 MCG eCW1 ([facility]) Levothyroxine Sodium 0.125 MG Oral Tablet Levothyroxin e Sodium 125 MCG Levothyroxine Sodium 125 MCG 06/27/2020 12:00:00 AM EDT active Levothyroxine Sodium 125 MCG eCW1 ([facility]) FreeStyle [place]ero [place] - FreeStyle [place] - 06/15/2020 12:00: 00 AM EDT active FreeStyle [place] - eCW1 ([facility]) FreeStyle [place] - [employer] [place] - 06/15/2020 12:00: 00 AM EDT active FreeStyle [place] - eCW1 ([facility]) FreeStyle [place] - [employer] [place] - 06/15/2020 12:00: 00 AM EDT active FreeStyle [place] - eCW1 ([facility]) FreeStyle [place] - [employer] [place] - 06/15/2020 12:00: 00 AM EDT active FreeStyle [place] - eCW1 ([facility]) FreeStyle [place] - [employer] [place] - 06/15/2020 12:00: 00 AM EDT active FreeStyle [place] - eCW1 ([facility]) FreeStyle [place] - [employer] [place] - 06/15/2020 12:00: 00 AM EDT active FreeStyle [place] - eCW1 ([facility]) FreeStyle [place] - [employer] [place] - 06/15/2020 12:00: 00 AM EDT active FreeStyle [place] - eCW1 ([facility]) FreeStyle [place] - [employer] [place] - 06/15/2020 12:00: 00 AM EDT active FreeStyle [place] - eCW1 ([facility]) FreeStyle [place] - FreeStyle [place] - 06/15/2020 12:00: 00 AM EDT active FreeStyle [place] - eCW1 ([facility]) FreeStyle [place] - FreeStyle [place] - 06/15/2020 12:00: 00 AM EDT active FreeStyle [place] - eCW1 ([facility]) FreeStyle [place] - FreeStyle [place] - 06/15/2020 12:00: 00 AM EDT active FreeStyle [place] - eCW1 ([facility]) FreeStyle [place] - FreeStyle [place] - 06/15/2020 12:00: 00 AM EDT active FreeStyle [place] - eCW1 ([facility]) FreeStyle [place] - FreeStyle [place] - 06/15/2020 12:00: 00 AM EDT active FreeStyle [place] - eCW1 ([facility]) FreeStyle [place] - FreeStyle [place] - 06/15/2020 12:00: 00 AM EDT active FreeStyle [place] - eCW1 ([facility]) FreeStyle [place] - FreeStyle [place] - 06/15/2020 12:00: 00 AM EDT active FreeStyle [place] - eCW1 ([facility]) FreeStyle [place] - FreeStyle [place] - 06/15/2020 12:00: 00 AM EDT active FreeStyle [place] - eCW1 ([facility]) gabapentin 100 MG Oral Capsule Gabapentin 100 MG Gabapentin 100 MG 03/28/2020 12:00:00 AM EDT 1.0 {capsule} active G abapentin 100 MG eCW1 ([facility]) gabapentin 100 MG Oral Capsule Gabapentin 100 MG Gabapentin 100 MG 03/28/2020 12:00:00 AM EDT 1.0 {capsule} active G abapentin 100 MG eCW1 ([facility]) gabapentin 100 MG Oral Capsule Gabapentin 100 MG Gabapentin 100 MG 03/28/2020 12:00:00 AM EDT 1.0 {capsule} active G abapentin 100 MG eCW1 ([facility]) gabapentin 100 MG Oral Capsule Gabapentin 100 MG Gabapentin 100 MG 03/28/2020 12:00:00 AM EDT 1.0 {capsule} active G abapentin 100 MG eCW1 ([facility]) gabapentin 100 MG Oral Capsule Gabapentin 100 MG Gabapentin 100 MG 03/28/2020 12:00:00 AM EDT 1.0 {capsule} active G abapentin 100 MG eCW1 ([facility]) OneTouch UltraSoft Lancets - OneTouch UltraSoft Lancets - 12:00:00 AM EDT active OneTouch UltraSof t Lancets - eCW1 ([facility]) OneTouch UltraSoft Lancets - OneTouch UltraSoft Lancets - 12:00:00 AM EDT active OneTouch UltraSof t Lancets - eCW1 ([facility]) OneTouch Ultra Test - UNK 12/23/2019 12:00:00 AM EDT active OneTouch Ultra Test - eCW1 ([facility]) OneTouch Ultra Test - UNK 12/23/2019 12:00:00 AM EDT active OneTouch Ultra Test - eCW1 ([facility]) OneTouch Ultra Test - UNK 12/23/2019 12:00:00 AM EDT active OneTouch Ultra Test - eCW1 ([facility]) OneTouch Ultra Test - UNK 12/23/2019 12:00:00 AM EDT active OneTouch Ultra Test - eCW1 ([facility]) OneTouch UltraSoft Lancets - OneTouch UltraSoft Lancets - 12:00:00 AM EDT active as directed eCW1 ([facility]) OneTouch UltraSoft Lancets - OneTouch UltraSoft Lancets - 12:00:00 AM EDT active OneTouch UltraSof t Lancets - eCW1 ([facility]) OneTouch UltraSoft Lancets - OneTouch UltraSoft Lancets - 12:00:00 AM EDT active OneTouch UltraSof t Lancets - eCW1 ([facility]) OneTouch UltraSoft Lancets - OneTouch UltraSoft Lancets - 12:00:00 AM EDT active OneTouch UltraSof t Lancets - eCW1 ([facility]) OneTouch Ultra Test - UNK 12/23/2019 12:00:00 AM EDT active OneTouch Ultra Test - eCW1 ([facility]) OneTouch Ultra Test - UNK 12/23/2019 12:00:00 AM EDT active OneTouch Ultra Test - eCW1 ([facility]) OneTouch UltraSoft Lancets - OneTouch UltraSoft Lancets - 12:00:00 AM EDT active OneTouch UltraSof t Lancets - eCW1 ([facility]) OneTouch Ultra Test - UNK 12/23/2019 12:00:00 AM EDT active OneTouch Ultra Test - eCW1 ([facility]) OneTouch UltraSoft Lancets - OneTouch UltraSoft Lancets - 12:00:00 AM EDT active OneTouch UltraSof t Lancets - eCW1 ([facility]) OneTouch Ultra Test - UNK 12/23/2019 12:00:00 AM EDT active OneTouch Ultra Test - eCW1 ([facility]) OneTouch UltraSoft Lancets - OneTouch UltraSoft Lancets - 12:00:00 AM EDT active OneTouch UltraSof t Lancets - eCW1 ([facility]) OneTouch Ultra Test - UNK 12/23/2019 12:00:00 AM EDT active OneTouch Ultra Test - eCW1 ([facility]) OneTouch UltraSoft Lancets - OneTouch UltraSoft Lancets - 12:00:00 AM EDT active OneTouch UltraSof t Lancets - eCW1 ([facility]) OneTouch Ultra Test - UNK 12/23/2019 12:00:00 AM EDT active OneTouch Ultra Test - eCW1 ([facility]) OneTouch Ultra Test - UNK 12/23/2019 12:00:00 AM EDT active as directed eCW1 ([facility]) OneTouch Ultra Test - UNK 12/23/2019 12:00:00 AM EDT active OneTouch Ultra Test - eCW1 ([facility]) OneTouch UltraSoft Lancets - OneTouch UltraSoft Lancets - 12:00:00 AM EDT active OneTouch UltraSof t Lancets - eCW1 ([facility]) OneTouch Ultra Test - UNK 12/23/2019 12:00:00 AM EDT active as directed eCW1 ([facility]) OneTouch Ultra Test - UNK 12/23/2019 12:00:00 AM EDT active OneTouch Ultra Test - eCW1 ([facility]) OneTouch UltraSoft Lancets - OneTouch UltraSoft Lancets - 12:00:00 AM EDT active OneTouch UltraSof t Lancets - eCW1 ([facility]) OneTouch Ultra Test - UNK 12/23/2019 12:00:00 AM EDT active OneTouch Ultra Test - eCW1 ([facility]) OneTouch Ultra Test - UNK 12/23/2019 12:00:00 AM EDT active OneTouch Ultra Test - eCW1 ([facility]) OneTouch UltraSoft Lancets - OneTouch UltraSoft Lancets - 12:00:00 AM EDT active OneTouch UltraSof t Lancets - eCW1 ([facility]) OneTouch UltraSoft Lancets - OneTouch UltraSoft Lancets - 12:00:00 AM EDT active OneTouch UltraSof t Lancets - eCW1 ([facility]) OneTouch Ultra Test - UNK 12/23/2019 12:00:00 AM EDT active OneTouch Ultra Test - eCW1 ([facility]) OneTouch Ultra Test - UNK 12/23/2019 12:00:00 AM EDT active OneTouch Ultra Test - eCW1 ([facility]) OneTouch UltraSoft Lancets - OneTouch UltraSoft Lancets - 12:00:00 AM EDT active OneTouch UltraSof t Lancets - eCW1 ([facility]) OneTouch Ultra Test - UNK 12/23/2019 12:00:00 AM EDT active OneTouch Ultra Test - eCW1 ([facility]) OneTouch UltraSoft Lancets - OneTouch UltraSoft Lancets - 12:00:00 AM EDT active OneTouch UltraSof t Lancets - eCW1 ([facility]) OneTouch Ultra Test - UNK 12/23/2019 12:00:00 AM EDT active OneTouch Ultra Test - eCW1 ([facility]) OneTouch Ultra Test - UNK 12/23/2019 12:00:00 AM EDT active as directed eCW1 ([facility]) OneTouch UltraSoft Lancets - OneTouch UltraSoft Lancets - 12:00:00 AM EDT active OneTouch UltraSof t Lancets - eCW1 ([facility]) OneTouch UltraSoft Lancets - OneTouch UltraSoft Lancets - 12:00:00 AM EDT active OneTouch UltraSof t Lancets - eCW1 ([facility]) OneTouch Ultra Test - UNK 12/23/2019 12:00:00 AM EDT active OneTouch Ultra Test - eCW1 ([facility]) OneTouch UltraSoft Lancets - OneTouch UltraSoft Lancets - 12:00:00 AM EDT active OneTouch UltraSof t Lancets - eCW1 ([facility]) OneTouch UltraSoft Lancets - OneTouch UltraSoft Lancets - 12:00:00 AM EDT active OneTouch UltraSof t Lancets - eCW1 ([facility]) OneTouch Ultra Test - UNK 12/23/2019 12:00:00 AM EDT active OneTouch Ultra Test - eCW1 ([facility]) OneTouch UltraSoft Lancets - OneTouch UltraSoft Lancets - 12:00:00 AM EDT active OneTouch UltraSof t Lancets - eCW1 ([facility]) 0.5 ML dulaglutide 1.5 MG/ML Auto-Injector [Trulicity] Trulicity 0.75 MG/0.5ML Trulicity 0.75 MG/0.5ML 11/20/2019 12:00:00 AM EST active 1 tab eCW1 ([facility]) 0.5 ML dulaglutide 1.5 MG/ML Auto-Injector [Trulicity] Trulicity 0.75 MG/0.5ML Trulicity 0.75 MG/0.5ML 11/20/2019 12:00:00 AM EST active 1 tab eCW1 ([facility]) POLYETHYLENE GLYCOL 3350 105 MG/ML / Pot assium Chloride 0.40174 MEQ/ML / Sodium Bicarbonate 0.017 MEQ/ML / Sodium Chloride 0.0479 MEQ/ML Oral Solution [TriLyte] Trilyte 11/04/2019 12:00:00 AM EST active MEDENT ([facility]) Magnesium Hydroxide 80 MG/ML Oral Suspension Milk Of Babs whatley 11/04/2019 12:00:00 AM EST ORAL active M EDENT ([facility] ) Metamucil Fiber 11/04/2019 12:00:00 AM EST ac tive MEDENT ([facility], ) ciclopirox 80 MG/ML Topical Solution Ciclopirox 10/06/2019 12:00:00 A M EST active MEDENT ([facility] Chlorthalidone 25 MG Oral Tablet Chlorthalidone 25 MG 2019 12:00:00 AM EST 1.0 {tablet_in_the_morning_with_food} active Chlorthalidone 25 MG eCW1 ([facility]) Chlorthalidone 25 MG Oral Tablet Chlorthalidone 25 MG 2019 12:00:00 AM EST active 1 tablet in the m orning with food eCW1 ([facility]) Chlorthalidone 25 MG Oral Tablet Chlorthalidone 25 MG 2019 12:00:00 AM EST 1.0 {tablet_in_the_morning_with_food} active Chlorthalidone 25 MG eCW1 ([facility]) Chlorthalidone 25 MG Oral Tablet Chlorthalidone 25 MG 2019 12:00:00 AM EST 1.0 {tablet_in_the_morning_with_food} active Chlorthalidone 25 MG eCW1 ([facility]) Chlorthalidone 25 MG Oral Tablet Chlorthalidone 25 MG 2019 12:00:00 AM EST 1.0 {tablet_in_the_morning_with_food} active Chlorthalidone 25 MG eCW1 ([facility]) Chlorthalidone 25 MG Oral Tablet Chlorthalidone 25 MG 2019 12:00:00 AM EST 1.0 {tablet_in_the_morning_with_food} active Chlorthalidone 25 MG eCW1 ([facility]) Chlorthalidone 25 MG Oral Tablet Chlorthalidone 25 MG 2019 12:00:00 AM EST active 1 tablet in the m orning with food eCW1 ([facility]) Chlorthalidone 25 MG Oral Tablet Chlorthalidone 25 MG 2019 12:00:00 AM EST 1.0 {tablet_in_the_morning_with_food} active Chlorthalidone 25 MG eCW1 ([facility]) Chlorthalidone 25 MG Oral Tablet Chlorthalidone 25 MG 2019 12:00:00 AM EST 1.0 {tablet_in_the_morning_with_food} active Chlorthalidone 25 MG eCW1 ([facility]) Chlorthalidone 25 MG Oral Tablet Chlorthalidone 25 MG 2019 12:00:00 AM EST 1.0 {tablet_in_the_morning_with_food} active Chlorthalidone 25 MG eCW1 ([facility]) Chlorthalidone 25 MG Oral Tablet Chlorthalidone 25 MG 2019 12:00:00 AM EST 1.0 {tablet_in_the_morning_with_food} active Chlorthalidone 25 MG eCW1 ([facility]) Chlorthalidone 25 MG Oral Tablet Chlorthalidone 25 MG 2019 12:00:00 AM EST 1.0 {tablet_in_the_morning_with_food} active Chlorthalidone 25 MG eCW1 ([facility]) Chlorthalidone 25 MG UNK 09/30/2019 12:00:00 AM EST active 1 tablet in the morning with food eCW1 ([facility]) Chlorthalidone 25 MG Oral Tablet Chlorthalidone 25 MG 2019 12:00:00 AM EST active 1 tablet in the m orning with food eCW1 ([facility]) Chlorthalidone 25 MG Oral Tablet Chlorthalidone 25 MG 2019 12:00:00 AM EST 1.0 {tablet_in_the_morning_with_food} active Chlorthalidone 25 MG eCW1 ([facility]) Chlorthalidone 25 MG Oral Tablet Chlorthalidone 25 MG 2019 12:00:00 AM EST active 1 tablet in the m orning with food eCW1 ([facility]) Chlorthalidone 25 MG Oral Tablet Chlorthalidone 25 MG 2019 12:00:00 AM EST active 1 tablet in the m orning with food eCW1 ([facility]) Chlorthalidone 25 MG Oral Tablet Chlorthalidone 25 MG 2019 12:00:00 AM EST 1.0 {tablet_in_the_morning_with_food} active Chlorthalidone 25 MG eCW1 ([facility]) Chlorthalidone 25 MG Oral Tablet Chlorthalidone 25 MG 2019 12:00:00 AM EST 1.0 {tablet_in_the_morning_with_food} active Chlorthalidone 25 MG eCW1 ([facility]) Chlorthalidone 25 MG Oral Tablet Chlorthalidone 25 MG 2019 12:00:00 AM EST 1.0 {tablet_in_the_morning_with_food} active Chlorthalidone 25 MG eCW1 ([facility]) Chlorthalidone 25 MG Oral Tablet Chlorthalidone 25 MG 2019 12:00:00 AM EST 1.0 {tablet_in_the_morning_with_food} active Chlorthalidone 25 MG eCW1 ([facility]) Chlorthalidone 25 MG Oral Tablet Chlorthalidone 25 MG 2019 12:00:00 AM EST 1.0 {tablet_in_the_morning_with_food} active Chlorthalidone 25 MG eCW1 ([facility]) Chlorthalidone 25 MG Oral Tablet Chlorthalidone 25 MG 2019 12:00:00 AM EST active 1 tablet in the m orning with food eCW1 ([facility]) Chlorthalidone 25 MG Oral Tablet Chlorthalidone 25 MG 2019 12:00:00 AM EST active 1 tablet in the m orning with food eCW1 ([facility]) Chlorthalidone 25 MG Oral Tablet Chlorthalidone 25 MG 2019 12:00:00 AM EST 1.0 {tablet_in_the_morning_with_food} active Chlorthalidone 25 MG eCW1 ([facility]) Chlorthalidone 25 MG Oral Tablet Chlorthalidone 25 MG 2019 12:00:00 AM EST 1.0 {tablet_in_the_morning_with_food} active Chlorthalidone 25 MG eCW1 ([facility]) Chlorthalidone 25 MG Oral Tablet Chlorthalidone 25 MG 2019 12:00:00 AM EST 1.0 {tablet_in_the_morning_with_food} active Chlorthalidone 25 MG eCW1 ([facility]) Chlorthalidone 25 MG Oral Tablet Chlorthalidone 25 MG 2019 12:00:00 AM EST 1.0 {tablet_in_the_morning_with_food} active Chlorthalidone 25 MG eCW1 ([facility]) Losartan Potassium 25 MG Oral Tablet Losartan Potassium 25 M G 09/10/2019 12:00:00 AM EST 1.0 {tablet} active Lo sartan Potassium 25 MG eCW1 ([facility]) Losartan Potassium 25 MG Oral Tablet Losartan Potassium 25 M G 09/10/2019 12:00:00 AM EST active 1 tablet eCW1 ([facility]) Losartan Potassium 25 MG Oral Tablet Losartan Potassium 25 M G 09/10/2019 12:00:00 AM EST 1.0 {tablet} active Lo sartan Potassium 25 MG eCW1 ([facility]) Losartan Potassium 25 MG Oral Tablet Losartan Potassium 25 M G 09/10/2019 12:00:00 AM EST 1.0 {tablet} active Lo sartan Potassium 25 MG eCW1 ([facility]) Losartan Potassium 25 MG Oral Tablet Losartan Potassium 25 M G 09/10/2019 12:00:00 AM EST 1.0 {tablet} active Lo sartan Potassium 25 MG eCW1 ([facility]) Loperamide HCl 2 MG UNK 09/10/2019 12:00:00 AM EST active 1 capsule as needed eCW1 ([facility]) Losartan Potassium 25 MG Oral Tablet Losartan Potassium 25 M G 09/10/2019 12:00:00 AM EST 1.0 {tablet} active Lo sartan Potassium 25 MG eCW1 ([facility]) Losartan Potassium 25 MG Oral Tablet Losartan Potassium 25 M G 09/10/2019 12:00:00 AM EST 1.0 {tablet} active Lo sartan Potassium 25 MG eCW1 ([facility]) Losartan Potassium 25 MG Oral Tablet Losartan Potassium 25 M G 09/10/2019 12:00:00 AM EST 1.0 {tablet} active Lo sartan Potassium 25 MG eCW1 ([facility]) Losartan Potassium 25 MG Oral Tablet Losartan Potassium 25 M G 09/10/2019 12:00:00 AM EST active 1 tablet eCW1 ([facility]) Losartan Potassium 25 MG Oral Tablet Losartan Potassium 25 M G 09/10/2019 12:00:00 AM EST 1.0 {tablet} active Lo sartan Potassium 25 MG eCW1 ([facility]) Loperamide Hydrochloride 2 MG Oral Capsule Loperamide HCl 2 MG Loperamide HCl 2 MG 09/10/2019 12:00:00 AM EST active 1 capsule as needed eCW1 ([facility]) Losartan Potassium 25 MG Oral Tablet Losartan Potassium 25 M G 09/10/2019 12:00:00 AM EST 1.0 {tablet} active Lo sartan Potassium 25 MG eCW1 ([facility]) Losartan Potassium 25 MG Oral Tablet Losartan Potassium 25 M G 09/10/2019 12:00:00 AM EST 1.0 {tablet} active Lo sartan Potassium 25 MG eCW1 ([facility]) Losartan Potassium 25 MG Oral Tablet Losartan Potassium 25 M G 09/10/2019 12:00:00 AM EST 1.0 {tablet} active Lo sartan Potassium 25 MG eCW1 ([facility]) Losartan Potassium 25 MG Oral Tablet Losartan Potassium 25 M G 09/10/2019 12:00:00 AM EST active 1 tablet eCW1 ([facility]) Loperamide Hydrochloride 2 MG Oral Capsule Loperamide HCl 2 MG Loperamide HCl 2 MG 09/10/2019 12:00:00 AM EST active 1 capsule as needed eCW1 ([facility]) Losartan Potassium 25 MG Oral Tablet Losartan Potassium 25 M G 09/10/2019 12:00:00 AM EST 1.0 {tablet} active Lo sartan Potassium 25 MG eCW1 ([facility]) Losartan Potassium 25 MG Oral Tablet Losartan Potassium 25 M G 09/10/2019 12:00:00 AM EST 1.0 {tablet} active Lo sartan Potassium 25 MG eCW1 ([facility]) Losartan Potassium 25 MG Oral Tablet Losartan Potassium 25 M G 09/10/2019 12:00:00 AM EST 1.0 {tablet} active Lo sartan Potassium 25 MG eCW1 ([facility]) Losartan Potassium 25 MG Oral Tablet Losartan Potassium 25 M G 09/10/2019 12:00:00 AM EST active 1 tablet [facility]1 [facility] [facility] Losartan Potassium 25 MG Oral Tablet Losartan Potassium 25 M G 09/10/2019 12:00:00 AM EST 1.0 {tablet} active Lo sartan Potassium 25 MG eCW1 ([facility]) Losartan Potassium 25 MG Oral Tablet Losartan Potassium 25 M G 09/10/2019 12:00:00 AM EST 1.0 {tablet} active Lo sartan Potassium 25 MG eCW1 ([facility]) Loperamide Hydrochloride 2 MG Oral Capsule Loperamide HCl 2 MG Loperamide HCl 2 MG 09/10/2019 12:00:00 AM EST active 1 capsule as needed eCW1 ([facility]) Losartan Potassium 25 MG Oral Tablet Losartan Potassium 25 M G 09/10/2019 12:00:00 AM EST 1.0 {tablet} active Lo sartan Potassium 25 MG eCW1 ([facility]) Losartan Potassium 25 MG Oral Tablet Losartan Potassium 25 M G 09/10/2019 12:00:00 AM EST active 1 tablet eCW1 ([facility]) Losartan Potassium 25 MG UNK 09/10/2019 12:00:00 AM EST active 1 tablet eCW1 ([facility]) Losartan Potassium 25 MG Oral Tablet Losartan Potassium 25 M G 09/10/2019 12:00:00 AM EST 1.0 {tablet} active Lo sartan Potassium 25 MG eCW1 ([facility]) Losartan Potassium 25 MG Oral Tablet Losartan Potassium 25 M G 09/10/2019 12:00:00 AM EST 1.0 {tablet} active Lo sartan Potassium 25 MG eCW1 ([facility]) Losartan Potassium 25 MG Oral Tablet Losartan Potassium 25 M G 09/10/2019 12:00:00 AM EST 1.0 {tablet} active Lo sartan Potassium 25 MG eCW1 ([facility]) Nebulizer - Nebulizer - 08/26/2019 12:00:00 AM EST active Nebulizer - eCW1 ([facility]) Umeclidinium [place] 62.5 MCG/INH UNK 08/26/2019 12:00:00 AM EST 1.0 {puff} suspended Umeclidinium [place] 62.5 MCG/INH eCW1 ([facility]) Albuterol 0.83 MG/ML Inhalant Solution Albuterol Sulfa te (2.5 MG/3ML) 0.083% Albuterol Sulfate (2.5 MG/3ML) 0.083% 08/26/2019 12:00:00 AM EST 3.0 {ml_as_needed} suspended Albuterol Sulfa te (2.5 MG/3ML) 0.083% eCW1 ([facility]) Levothyroxine Sodium 0.112 MG Oral Tablet Levothyroxin e Sodium 112 MCG Levothyroxine Sodium 112 MCG 08/26/2019 12:00:00 AM EST active 1 tablet in the morning on an empty stomach eCW1 ([facility]) Nebulizer - Nebulizer - 08/26/2019 12:00:00 AM EST suspended j44.9 as directed eCW1 ([facility]) Levothyroxine Sodium 0.112 MG Oral Tablet Levothyroxin e Sodium 112 MCG Levothyroxine Sodium 112 MCG 08/26/2019 12:00:00 AM EST suspended Levothyroxine Sodium 112 MCG eCW1 ([facility]) Levothyroxine Sodium 0.112 MG Oral Tablet Levothyroxin e Sodium 112 MCG Levothyroxine Sodium 112 MCG 08/26/2019 12:00:00 AM EST active 1 tablet in the morning on an empty stomach eCW1 ([facility]) Nebulizer - Nebulizer - 08/26/2019 12:00:00 AM EST active Nebulizer - eCW1 ([facility]) Nebulizer - Nebulizer - 08/26/2019 12:00:00 AM EST active Nebulizer - eCW1 ([facility]) Umeclidinium [place] 62.5 MCG/INH UNK 08/26/2019 12:00:00 AM EST 1.0 {puff} suspended Umeclidinium [place] 62.5 MCG/INH eCW1 ([facility]) Umeclidinium [place] 62.5 MCG/INH UNK 08/26/2019 12:00:00 AM EST 1.0 {puff} suspended Umeclidinium [place] 62.5 MCG/INH eCW1 ([facility]) Levothyroxine Sodium 0.112 MG Oral Tablet Levothyroxin e Sodium 112 MCG Levothyroxine Sodium 112 MCG 08/26/2019 12:00:00 AM EST suspended Levothyroxine Sodium 112 MCG eCW1 ([facility]) Albuterol 0.83 MG/ML Inhalant Solution Albuterol Sulfa te (2.5 MG/3ML) 0.083% Albuterol Sulfate (2.5 MG/3ML) 0.083% 08/26/2019 12:00:00 AM EST suspended 3 ml as needed eCW1 ([facility]) Albuterol 0.83 MG/ML Inhalant Solution Albuterol Sulfa te (2.5 MG/3ML) 0.083% Albuterol Sulfate (2.5 MG/3ML) 0.083% 08/26/2019 12:00:00 AM EST 3.0 {ml_as_needed} suspended Albuterol Sulfa te (2.5 MG/3ML) 0.083% eCW1 ([facility]) Nebulizer - Nebulizer - 08/26/2019 12:00:00 AM EST active Nebulizer - eCW1 ([facility]) Nebulizer - Nebulizer - 08/26/2019 12:00:00 AM EST active j44.9 as directed eCW1 ([facility]) Umeclidinium [place] 62.5 MCG/INH UNK 08/26/2019 12:00:00 AM EST active 1 puff eCW1 ([facility]) Levothyroxine Sodium 0.112 MG Oral Tablet Levothyroxin e Sodium 112 MCG Levothyroxine Sodium 112 MCG 08/26/2019 12:00:00 AM EST suspended Levothyroxine Sodium 112 MCG eCW1 ([facility]) Levothyroxine Sodium 0.112 MG Oral Tablet Levothyroxin e Sodium 112 MCG Levothyroxine Sodium 112 MCG 08/26/2019 12:00:00 AM EST active Levothyroxine Sodium 112 MCG eCW1 ([facility]) Albuterol 0.83 MG/ML Inhalant Solution Albuterol Sulfa te (2.5 MG/3ML) 0.083% Albuterol Sulfate (2.5 MG/3ML) 0.083% 08/26/2019 12:00:00 AM EST active 3 ml as needed eCW1 ([facility]) Albuterol Sulfate (2.5 MG/3ML) 0.083% UNK 08/26/2019 12:00:00 AM EST active 3 ml as needed eCW1 ([facility]) Umeclidinium [place] 62.5 MCG/INH UNK 08/26/2019 12:00:00 AM EST suspended 1 puff eCW1 ([facility]) Nebulizer - UNK 08/26/2019 12:00:00 AM EST active j44.9 as directed eCW1 ([facility]) Umeclidinium [place] 62.5 MCG/INH UNK 08/26/2019 12:00:00 AM EST 1.0 {puff} suspended Umeclidinium [place] 62.5 MCG/INH eCW1 ([facility]) Umeclidinium [place] 62.5 MCG/INH UNK 08/26/2019 12:00:00 AM EST 1.0 {puff} suspended Umeclidinium [place] 62.5 MCG/INH eCW1 ([facility]) Nebulizer - Nebulizer - 08/26/2019 12:00:00 AM EST active Nebulizer - eCW1 ([facility]) Nebulizer - Nebulizer - 08/26/2019 12:00:00 AM EST suspended j44.9 as directed eCW1 ([facility]) Albuterol 0.83 MG/ML Inhalant Solution Albuterol Sulfa te (2.5 MG/3ML) 0.083% Albuterol Sulfate (2.5 MG/3ML) 0.083% 08/26/2019 12:00:00 AM EST 3.0 {ml_as_needed} suspended Albuterol Sulfa te (2.5 MG/3ML) 0.083% eCW1 ([facility]) Nebulizer - Nebulizer - 08/26/2019 12:00:00 AM EST suspended j44.9 as directed eCW1 ([facility]) Levothyroxine Sodium 0.112 MG Oral Tablet Levothyroxin e Sodium 112 MCG Levothyroxine Sodium 112 MCG 08/26/2019 12:00:00 AM EST active Levothyroxine Sodium 112 MCG eCW1 ([facility]) Nebulizer - Nebulizer - 08/26/2019 12:00:00 AM EST active Nebulizer - eCW1 ([facility]) Levothyroxine Sodium 0.112 MG Oral Tablet Levothyroxin e Sodium 112 MCG Levothyroxine Sodium 112 MCG 08/26/2019 12:00:00 AM EST active 1 tablet in the morning on an empty stomach eCW1 ([facility]) Umeclidinium [place] 62.5 MCG/INH UNK 08/26/2019 12:00:00 AM EST active 1 puff eCW1 ([facility]) Umeclidinium [place] 62.5 MCG/INH UNK 08/26/2019 12:00:00 AM EST 1.0 {puff} suspended Umeclidinium [place] 62.5 MCG/INH eCW1 ([facility]) Umeclidinium [place] 62.5 MCG/INH UNK 08/26/2019 12:00:00 AM EST 1.0 {puff} suspended Umeclidinium [place] 62.5 MCG/INH eCW1 ([facility]) Levothyroxine Sodium 0.112 MG Oral Tablet Levothyroxin e Sodium 112 MCG Levothyroxine Sodium 112 MCG 08/26/2019 12:00:00 AM EST active 1 tablet in the morning on an empty stomach eCW1 ([facility]) Nebulizer - Nebulizer - 08/26/2019 12:00:00 AM EST active Nebulizer - eCW1 ([facility]) Nebulizer - Nebulizer - 08/26/2019 12:00:00 AM EST active Nebulizer - eCW1 ([facility]) Umeclidinium [place] 62.5 MCG/INH UNK 08/26/2019 12:00:00 AM EST 1.0 {puff} suspended Umeclidinium [place] 62.5 MCG/INH eCW1 ([facility]) Levothyroxine Sodium 0.112 MG Oral Tablet Levothyroxin e Sodium 112 MCG Levothyroxine Sodium 112 MCG 08/26/2019 12:00:00 AM EST active Levothyroxine Sodium 112 MCG eCW1 ([facility]) Albuterol 0.83 MG/ML Inhalant Solution Albuterol Sulfa te (2.5 MG/3ML) 0.083% Albuterol Sulfate (2.5 MG/3ML) 0.083% 08/26/2019 12:00:00 AM EST suspended 3 ml as needed eCW1 ([facility]) Nebulizer - Nebulizer - 08/26/2019 12:00:00 AM EST active Nebulizer - eCW1 ([facility]) Albuterol 0.83 MG/ML Inhalant Solution Albuterol Sulfa te (2.5 MG/3ML) 0.083% Albuterol Sulfate (2.5 MG/3ML) 0.083% 08/26/2019 12:00:00 AM EST 3.0 {ml_as_needed} suspended Albuterol Sulfa te (2.5 MG/3ML) 0.083% eCW1 ([facility]) Albuterol 0.83 MG/ML Inhalant Solution Albuterol Sulfa te (2.5 MG/3ML) 0.083% Albuterol Sulfate (2.5 MG/3ML) 0.083% 08/26/2019 12:00:00 AM EST 3.0 {ml_as_needed} suspended Albuterol Sulfa te (2.5 MG/3ML) 0.083% eCW1 ([facility]) Nebulizer - Nebulizer - 08/26/2019 12:00:00 AM EST active Nebulizer - eCW1 ([facility]) Umeclidinium [place] 62.5 MCG/INH UNK 08/26/2019 12:00:00 AM EST active 1 puff eCW1 ([facility]) Nebulizer - Nebulizer - 08/26/2019 12:00:00 AM EST active Nebulizer - eCW1 ([facility]) Nebulizer - Nebulizer - 08/26/2019 12:00:00 AM EST active Nebulizer - eCW1 ([facility]) Nebulizer - Nebulizer - 08/26/2019 12:00:00 AM EST active Nebulizer - eCW1 ([facility]) Levothyroxine Sodium 0.112 MG Oral Tablet Levothyroxin e Sodium 112 MCG Levothyroxine Sodium 112 MCG 08/26/2019 12:00:00 AM EST active Levothyroxine Sodium 112 MCG eCW1 ([facility]) Albuterol 0.83 MG/ML Inhalant Solution Albuterol Sulfa te (2.5 MG/3ML) 0.083% Albuterol Sulfate (2.5 MG/3ML) 0.083% 08/26/2019 12:00:00 AM EST 3.0 {ml_as_needed} suspended Albuterol Sulfa te (2.5 MG/3ML) 0.083% eCW1 ([facility]) Levothyroxine Sodium 0.112 MG Oral Tablet Levothyroxin e Sodium 112 MCG Levothyroxine Sodium 112 MCG 08/26/2019 12:00:00 AM EST active Levothyroxine Sodium 112 MCG eCW1 ([facility]) Nebulizer - Nebulizer - 08/26/2019 12:00:00 AM EST active j44.9 as directed eCW1 ([facility]) Umeclidinium [place] 62.5 MCG/INH UNK 08/26/2019 12:00:00 AM EST suspended 1 puff eCW1 ([facility]) Albuterol 0.83 MG/ML Inhalant Solution Albuterol Sulfa te (2.5 MG/3ML) 0.083% Albuterol Sulfate (2.5 MG/3ML) 0.083% 08/26/2019 12:00:00 AM EST 3.0 {ml_as_needed} suspended Albuterol Sulfa te (2.5 MG/3ML) 0.083% eCW1 ([facility]) Albuterol 0.83 MG/ML Inhalant Solution Albuterol Sulfa te (2.5 MG/3ML) 0.083% Albuterol Sulfate (2.5 MG/3ML) 0.083% 08/26/2019 12:00:00 AM EST 3.0 {ml_as_needed} suspended Albuterol Sulfa te (2.5 MG/3ML) 0.083% eCW1 ([facility]) Albuterol 0.83 MG/ML Inhalant Solution Albuterol Sulfa te (2.5 MG/3ML) 0.083% Albuterol Sulfate (2.5 MG/3ML) 0.083% 08/26/2019 12:00:00 AM EST 3.0 {ml_as_needed} suspended Albuterol Sulfa te (2.5 MG/3ML) 0.083% eCW1 ([facility]) Umeclidinium [place] 62.5 MCG/INH UNK 08/26/2019 12:00:00 AM EST suspended 1 puff eCW1 ([facility]) Nebulizer - Nebulizer - 08/26/2019 12:00:00 AM EST active Nebulizer - eCW1 ([facility]) Umeclidinium [place] 62.5 MCG/INH UNK 08/26/2019 12:00:00 AM EST 1.0 {puff} suspended Umeclidinium [place] 62.5 MCG/INH eCW1 ([facility]) Levothyroxine Sodium 0.112 MG Oral Tablet Levothyroxin e Sodium 112 MCG Levothyroxine Sodium 112 MCG 08/26/2019 12:00:00 AM EST active 1 tablet in the morning on an empty stomach eCW1 ([facility]) Levothyroxine Sodium 0.112 MG Oral Tablet Levothyroxin e Sodium 112 MCG Levothyroxine Sodium 112 MCG 08/26/2019 12:00:00 AM EST active 1 tablet in the morning on an empty stomach eCW1 ([facility]) Umeclidinium [place] 62.5 MCG/INH UNK 08/26/2019 12:00:00 AM EST 1.0 {puff} suspended Umeclidinium [place] 62.5 MCG/INH eCW1 ([facility]) Nebulizer - Nebulizer - 08/26/2019 12:00:00 AM EST active Nebulizer - eCW1 ([facility]) Albuterol 0.83 MG/ML Inhalant Solution Albuterol Sulfa te (2.5 MG/3ML) 0.083% Albuterol Sulfate (2.5 MG/3ML) 0.083% 08/26/2019 12:00:00 AM EST suspended 3 ml as needed eCW1 ([facility]) Levothyroxine Sodium 0.112 MG Oral Tablet Levothyroxin e Sodium 112 MCG Levothyroxine Sodium 112 MCG 08/26/2019 12:00:00 AM EST active 1 tablet in the morning on an empty stomach eCW1 ([facility]) Umeclidinium [place] 62.5 MCG/INH UNK 08/26/2019 12:00:00 AM EST 1.0 {puff} suspended Umeclidinium [place] 62.5 MCG/INH eCW1 ([facility]) Albuterol 0.83 MG/ML Inhalant Solution Albuterol Sulfa te (2.5 MG/3ML) 0.083% Albuterol Sulfate (2.5 MG/3ML) 0.083% 08/26/2019 12:00:00 AM EST 3.0 {ml_as_needed} suspended Albuterol Sulfa te (2.5 MG/3ML) 0.083% eCW1 ([facility]) Albuterol 0.83 MG/ML Inhalant Solution Albuterol Sulfa te (2.5 MG/3ML) 0.083% Albuterol Sulfate (2.5 MG/3ML) 0.083% 08/26/2019 12:00:00 AM EST active 3 ml as needed eCW1 ([facility]) Nebulizer - Nebulizer - 08/26/2019 12:00:00 AM EST active Nebulizer - eCW1 ([facility]) Umeclidinium [place] 62.5 MCG/INH UNK 08/26/2019 12:00:00 AM EST active 1 puff eCW1 ([facility]) Umeclidinium [place] 62.5 MCG/INH UNK 08/26/2019 12:00:00 AM EST 1.0 {puff} suspended Umeclidinium [place] 62.5 MCG/INH eCW1 ([facility]) Nebulizer - Nebulizer - 08/26/2019 12:00:00 AM EST active Nebulizer - eCW1 ([facility]) Nebulizer - Nebulizer - 08/26/2019 12:00:00 AM EST active j44.9 as directed eCW1 ([facility]) Nebulizer - Nebulizer - 08/26/2019 12:00:00 AM EST active Nebulizer - eCW1 ([facility]) Nebulizer - Nebulizer - 08/26/2019 12:00:00 AM EST active Nebulizer - eCW1 ([facility]) Umeclidinium [place] 62.5 MCG/INH UNK 08/26/2019 12:00:00 AM EST active 1 puff eCW1 ([facility]) Albuterol 0.83 MG/ML Inhalant Solution Albuterol Sulfa te (2.5 MG/3ML) 0.083% Albuterol Sulfate (2.5 MG/3ML) 0.083% 08/26/2019 12:00:00 AM EST 3.0 {ml_as_needed} suspended Albuterol Sulfa te (2.5 MG/3ML) 0.083% eCW1 ([facility]) Nebulizer - Nebulizer - 08/26/2019 12:00:00 AM EST active j44.9 as directed eCW1 ([facility]) Nebulizer - Nebulizer - 08/26/2019 12:00:00 AM EST active Nebulizer - eCW1 ([facility]) Nebulizer - Nebulizer - 08/26/2019 12:00:00 AM EST active j44.9 as directed eCW1 ([facility]) Albuterol 0.83 MG/ML Inhalant Solution Albuterol Sulfa te (2.5 MG/3ML) 0.083% Albuterol Sulfate (2.5 MG/3ML) 0.083% 08/26/2019 12:00:00 AM EST active 3 ml as needed eCW1 ([facility]) Levothyroxine Sodium 0.112 MG Oral Tablet Levothyroxin e Sodium 112 MCG Levothyroxine Sodium 112 MCG 08/26/2019 12:00:00 AM EST active Levothyroxine Sodium 112 MCG eCW1 ([facility]) Levothyroxine Sodium 112 MCG UNK 08/26/2019 12:00:00 AM EST active 1 tablet in the morning on an empty stomach eCW1 ([facility]) Levothyroxine Sodium 0.112 MG Oral Tablet Levothyroxin e Sodium 112 MCG Levothyroxine Sodium 112 MCG 08/26/2019 12:00:00 AM EST suspended Levothyroxine Sodium 112 MCG eCW1 ([facility]) Albuterol 0.83 MG/ML Inhalant Solution Albuterol Sulfa te (2.5 MG/3ML) 0.083% Albuterol Sulfate (2.5 MG/3ML) 0.083% 08/26/2019 12:00:00 AM EST 3.0 {ml_as_needed} suspended Albuterol Sulfa te (2.5 MG/3ML) 0.083% eCW1 ([facility]) Levothyroxine Sodium 0.112 MG Oral Tablet Levothyroxin e Sodium 112 MCG Levothyroxine Sodium 112 MCG 08/26/2019 12:00:00 AM EST active 1 tablet in the morning on an empty stomach eCW1 ([facility]) Levothyroxine Sodium 0.112 MG Oral Tablet Levothyroxin e Sodium 112 MCG Levothyroxine Sodium 112 MCG 08/26/2019 12:00:00 AM EST active Levothyroxine Sodium 112 MCG eCW1 ([facility]) Levothyroxine Sodium 0.112 MG Oral Tablet Levothyroxin e Sodium 112 MCG Levothyroxine Sodium 112 MCG 08/26/2019 12:00:00 AM EST active Levothyroxine Sodium 112 MCG eCW1 ([facility]) Albuterol 0.83 MG/ML Inhalant Solution Albuterol Sulfa te (2.5 MG/3ML) 0.083% Albuterol Sulfate (2.5 MG/3ML) 0.083% 08/26/2019 12:00:00 AM EST active 3 ml as needed eCW1 ([facility]) Insurance Providers Payer name Policy type / Coverage type Policy ID Covered green party ID Covered green party's relationship to cai Policy Cai Plan Information MEDICARE [id number] SP [id number] [id number] [place] [id number] SP [id number] BLUE CROSS BLUE SHIELD -RECURRING [id number] 18 [id number] MEDICARE PART A -RECURRING [id number] 18 [id number] [place] 090/590 [id number] SP [id number] EXCELLUS BCBS B [id number] S [id number] MEDICARE C [id number] S [id number] J23 [place] 090/590 [id number] SP [id number] MEDICARE [id number] SP [id number] J23 Problems, Conditions, and Diagnoses Code Display Name Description Problem Type Effective Dates Data Source(s) C44.91 [id number] Basal cell carcinoma (BCC), unspecified s ite Problem 09/22/2020 12:00:00 AM EST eCW1 ([facility]) N18.9 [id number] Chronic kidney disease, unspecified CKD s tage Problem 08/22/2020 12:00:00 AM EST eCW1 ([facility]) L40.8 [id number] Sebopsoriasis Problem 07/08/2020 12:00:00 AM EDT eCW1 ([facility]) E11.9 [id number] Type 2 diabetes darryl itus without complication, without long-term current use of insulin Problem 03/28/2020 12:00:00 AM EDT eCW1 ([facility]) [id number] Type 2 diabetes mellitus Type 2 diabetes mellitus Prob tash 02/03/2020 12:00:00 AM EDT [facility] ([facility] ) [id number] Essential hypertension Essential hypertension Problem 02/03/2020 12:00:00 AM EDT [facility] ([facility] ) [id number] Type 2 diabetes mellitus Type 2 diabetes mellitus Prob tash 02/03/2020 12:00:00 AM EDT [facility] ([facility] ) G25.81 Restless legs Restless leg Problem 12/23/2019 12:00:00 AM EDT eCW1 ([facility]) G25.81 Restless legs Restless leg Problem 12/23/2019 12:00:00 AM EDT eCW1 ([facility]) F41.9 [id number] Anxiety Problem 11/19/2019 12:00:00 AM ES T eCW1 ([facility]) F41.9 27148275 Anxiety Problem 11/19/2019 12:00:00 AM ES T eCW1 ([facility]) Corns and callosities Corns and callosities Problem 10/17/2019 12:00:00 AM EST [facility] ([facility] [id number] Onychomycosis Onychomycosis Problem 10/17/2019 12:00:00 AM EST [facility] ([facility] 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 Problem 10/17/2019 12:00:00 AM EST MED ENT ([facility] [id number] Pronation Pronation Problem 10/17/2019 12:00:00 AM ES T MED[facility] ([facility] H40.9 47809719 Glaucoma, unspecified glaucoma t ype, unspecified laterality Problem 09/30/2019 12:00:00 AM EST eCW1 ([facility]) H35.30 673967456 Macular degeneration, unspecifie d laterality, unspecified type Problem 09/30/2019 12:00:00 AM EST eCW1 ([facility]) H40.9 25346633 Glaucoma, unspecified glaucoma t ype, unspecified laterality Problem 09/30/2019 12:00:00 AM EST eCW1 ([facility]) H35.30 [id number] Macular degeneration, unspecifie d laterality, unspecified type Problem 09/30/2019 12:00:00 AM EST eCW1 ([facility]) G89.29 67776291 Other chronic pain Problem 09/10/2019 12:00: 00 AM EST eCW1 ([facility]) G89.29 81945224 Other chronic pain Problem 09/10/2019 12:00: 00 AM EST eCW1 ([facility]) N39.46 Mixed incontinence Mixed stress and urge urinary incon tinence Problem 09/02/2019 12:00:00 AM EST eCW1 ([facility]) N39.46 Mixed incontinence Mixed stress and urge urinary incon tinence Problem 09/02/2019 12:00:00 AM EST eCW1 ([facility]) N13.9 0217202 Urinary (tract) obstruction Problem 08/27/20 19 12:00:00 AM EST eCW1 ([facility]) Z85.51 759738317 History of bladder cancer Problem 08/27/2019 12:00:00 AM EST eCW1 ([facility]) Z85.51 191633355 History of bladder cancer Problem 08/27/2019 12:00:00 AM EST eCW1 ([facility]) N13.9 2586983 Urinary (tract) obstruction Problem 08/27/20 12:00:00 AM EST eCW1 ([facility]) E03.9 08536757 Hypothyroidism, unspecified type Problem 08/26/2019 12:00:00 AM EST eCW1 ([facility]) E03.9 92240549 Hypothyroidism, unspecified type Problem 08/26/2019 12:00:00 AM EST eCW1 ([facility]) [id number] Other spondylosis, lumbar region Other spondylos is, lumbar region Diagnosis 08/30/2020 01:42:00 PM [facility] 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, lumbar region Other intervertebral disc degeneration, lumbar region Diagnosis 08/30/2020 01:42:00 PM [facility] Surgeries/Procedures Procedure Description Date Indications Data Source(s) PARING/CUTTING BENIGN HYPERKERATOTIC LESION 1 08/29/20 20 12:00:00 AM EST [facility] ([facility] DEBRIDEMENT NAIL ANY METHOD 6/> 08/29/2020 12:00:00 AM EST [facility] ([facility] Immunization: Flublok Quadrivalent (18 years & older) 0.5mL IM (Influenza) 08/22/2020 12:00:00 AM EST eCW1 ([facility]) PARING/CUTTING BENIGN HYPERKERATOTIC LESION 2-4 2019 12:00:00 AM EDT [facility] ([facility] DEBRIDEMENT NAIL ANY METHOD 6/> 04/25/2020 12:00:00 AM EDT [facility] ([facility] RADEX SPINE CRV COMPL W/OBLQ&FLEX&/XTN STDS 02/02/2020 12:00:00 AM EDT [facility] ([facility]) X-Ray Spine Lumbosacral Complete Inc Bending Views Min Of 6 02/02/2020 12:00:00 AM EDT [facility] ([facility]) PHYSICIAN TELEPHONE EVALUATION 11-20 MIN 12/23/2019 12 :00:00 AM EDT eCW1 ([facility]) Office Visit, Est Pt., Level 2 FC 11/19/2019 12:00:00 AM EST eCW1 ([facility]) Office Visit, Est Pt., Level 4 PC 11/19/2019 12:00:00 AM EST eCW1 ([facility]) Medicare, [employer], [place], PC-INTERPRETATION AND REPORT 10/20/2019 12:00:00 AM EST eCW1 ([facility]) Medicare, [employer], [place], FC-ELECTROCARDIOGRAM, TRACING ON LY 10/20/2019 12:00:00 AM EST eCW1 ([facility]) CYSTOSCOPY 10/14/2019 12:00:00 AM EST e CW1 ([facility]) Results ID Date Data Source [id number] 06/23/2020 12:00:00 AM EDT eCW1 ([facility]) Name Value Range Interpretation Code Description Data Nuria rce(s) Supporting Document(s) MICROALBUMIN RANDOM eCW1 ([facility]) UR MICROALBUMIN eCW1 ([facility]) CREATININE URINE eCW1 ([facility]) ABELARDO/CREAT RATIO eCW1 ([facility]) ID Date Data Source CREATININE,RANDOM URINE 06/23/2020 12:00:00 AM EDT eCW1 ([facility]) Name Value Range Interpretation Code Description Data Nuria rce(s) Supporting Document(s) CREATININE,RANDOM URINE eCW1 ( [facility]) ID Date Data Source TSH 06/23/2020 12:00:00 AM EDT eCW1 ([facility]) Name Value Range Interpretation Code Description Data Nuria rce(s) Supporting Document(s) 6.440 0.358-3.740 THYROID STIMULATING HORM ONE eCW1 ([facility]) ID Date Data Source LIPID PANEL (CARDIAC RISK) 06/23/2020 12:00:00 AM EDT eCW1 ( [facility]) Name Value Range Interpretation Code Description Data Nuria rce(s) Supporting Document(s) 113 NON-HDL-C eCW1 ([facility]) Cholesterol in HDL [Moles/volume] in Serum or Plasma 59 >40 HDL CHOLESTEROL eCW1 ([facility]) Cholesterol in LDL [Mass/volume] in Serum or Plasma by calculation 99 <100 LDL CHOLESTEROL eCW1 ([facility]) Triglyceride [Mass/volume] in Serum or Plasma by calculation 69 <150 TRIGLYCERIDES LEVEL eCW1 ([facility]) Cholesterol [Moles/volume] in Serum or Plasma 172 <200 CHOLESTEROL LEVEL eCW1 ([facility]) 2.915 <5 CHOLESTEROL RISK RATIO eCW1 ([facility]) ID Date Data Source [id number] 06/23/2020 12:00:00 AM EDT eCW1 ([facility]) Name Value Range Interpretation Code Description Data Nuria rce(s) Supporting Document(s) Hemoglobin A1c/Hemoglobin.total in Blood 7.4 HEMOGLOBIN A1c eCW1 ([facility]) ID Date Data Source CBC with Differential 06/23/2020 12:00:00 AM EDT eCW1 ([facility]) Name Value Range Interpretation Code Description Data Nuria rce(s) Supporting Document(s) 4.49 4.00-5.40 RED BLOOD COUNT eCW1 ([facility]) 10.8 4.0-10.0 WHITE BLOOD COUNT eCW1 ([facility]) 13.0 12.0-15.5 HEMOGLOBIN eCW1 ([facility]) 44.3 36.0-47.0 HEMATOCRIT eCW1 ([facility]) 15.0 11.5-14.5 RED CELL DISTRIBUTION WID TH eCW1 ([facility]) 98.7 80.0-96.0 MEAN CORPUSCULAR VOLUME e CW1 ([facility]) 29.3 32.0-36.5 MEAN CORPUSCULAR HGB CONC eCW1 ([facility]) 29.0 27.0-33.0 MEAN CORPUSCULAR HEMOGLOB IN eCW1 ([facility]) 5.9 0.0-5.0 MONO % eCW1 ([facility]) 66.9 36.0-66.0 NEUTROPHILS % eCW1 ([facility]) 23.2 24.0-44.0 LYMPH % eCW1 ([facility]) 181 150-450 PLATELET COUNT, AUTOMATED eCW1 ([facility]) 7.2 1.5-8.5 NEUTROPHILS # eCW1 ([facility]) 0.5 0.0-1.0 BASO % eCW1 ([facility]) 3.0 0.0-3.0 EOS % eCW1 ([facility]) 2.5 1.5-5.0 LYMPH # eCW1 ([facility]) 0.1 0.0-0.2 BASO # eCW1 ([facility]) 0.6 0.0-0.8 MONO # eCW1 ([facility]) 0.3 0.0-0.5 EOS # eCW1 ([facility]) ID Date Data Source Basic Metabolic Profile (BMP) 06/23/2020 12:00:00 AM EDT eCW 1 ([facility]) Name Value Range Interpretation Code Description Data Nuria rce(s) Supporting Document(s) 89 70-100 GLUCOSE, FASTING eCW1 ([facility]) 35.8 >39 GLOMERULAR FILTRATION RATE eCW 1 ([facility]) 141 136-145 SODIUM LEVEL eCW1 ([facility]) 1.50 0.55-1.30 CREATININE FOR GFR eCW1 ([facility]) 29 7-18 BLOOD UREA NITROGEN eCW1 ([facility]) 101 98-107 CHLORIDE LEVEL eCW1 ([facility]) 4.4 3.5-5.1 POTASSIUM SERUM eCW1 ([facility]) 36 21-32 CARBON DIOXIDE LEVEL eCW1 ([facility]) 8.4 8.8-10.2 CALCIUM LEVEL eCW1 ([facility]) ID Date Data Source [id number] 06/07/2020 12:00:00 AM EDT [facility] Wu Craig MD Patient Name: DANIELA SAXENA [id number] [facility] Date of : 1940[place] [address] Date of Exam: 06/07/2020#: Fax: [phone] EXAM: MRI LUMBAR SPINE WITHOUT CONTRASTCLINICAL INFORMATION: Spondylosis in the lumbar region. Low back pain. COMPARISON: MRI study from 04/29/2020.TECHNIQUE:3T multiplanar MRI imaging of the lumbar spine was obtained using varioussequences.MRI FINDINGS:There is a wedge compression fracture deformity again noted at the T1vpeqzloeo body level, unchanged. There is approximately 40% loss ofvertebral body height anteriorly and less height loss posteriorly. There isretropulsion of the posterior cortex of the L1 vertebral body which indentsthe ventral margin of the thecal sac somewhat. This retropulsion measures2 to 3 mm. It is unchanged. The tip of the conus medullaris is normal inposition and appearance at T12. Cortical and medullary bone signalintensity are otherwise normal. Vertebral body heights are otherwisepreserved.Axial and sagittal images at T12-L1 demonstrate mild disc bulging. Nocanal stenosis or foraminal narrowing is seen.At L1-2, there is diffuse disc bulging again noted.At L2-3, there is left foraminal disc protrusion which in combination withmild discogenic spurring produces left foraminal narrowing and nerve rootcompression. This is unchanged from the comparison study of 04/29/2020.The right foramen is unremarkable. No spinal stenosis is seen.At L3-4, there is a broad based central focal disc protrusion indenting theventral margin of the thecal sac. Minimal facet hypertrophy is present.No definite neural foraminal narrowing is seen.At L4-5, there is diffuse disc bulging. There is mild right-sidedforaminal narrowing from facet hypertrophy and disc bulging. This isunchanged. There is evidence of left laminectomy defect at L4-5. Thesefindings are unchanged.At L5-S1, there is advanced facet hypertrophy bilaterally, left greaterthan right. There is right- sided neural foraminal narrowing at L5-S1 dueto facet hypertrophy, discogenic spurring and disc bulging. Mild neuralforaminal narrowing is noted on the left due to the same factors. Thesefindings are unchanged. There appears to be rig ht laminectomy change atL5-S1.IMPRESSION:Degenerative spondylosis changes. Stable foraminal narrowing at L2-3 andL5-S1, unchanged since the most recent prior study of 04/29/2020. Wedgeshaped compression deformity at L1, also unchanged.Accredited by the [employer] in MR.IZZY Meeks/jmcThank you for referring DANIELA SAXENA to our office. Electronically Signed - ANNALEE VICKERS MD 06/09/20 16:20 Name Value Range Interpretation Code Description Data Nuria rce(s) Supporting Document(s) ID Date Data Source [id number] 04/29/2020 12:00:00 AM EDT [facility] Wu Craig MD Patient Name: KENISHA SAXENA [facility] 1940[facility] [place] [id number] Date of Exam: 04/29/2020#: Fax: [phone] EXAM: MRI LUMBAR SPINE WITHOUT CONTRASTPROCEDURE INFORMATION:Exam: MR Lumbar Spine Without Contrast.Exam date and time: 04/29/2020 2:05 PM Age: 79 years oldClinical indication: Low back painTECHNIQUE: Imaging protocol: Multiplanar magnetic resonance images of thelumbar spine without intravenous contrast.COMPARISON: No relevant prior studies available.FINDINGS:Vertebrae: There has been possible prior vertebroplasty at the L1 levelwhere a prior wedge compression fracture is apparent. There is mildretropulsion of the superior endplate series 301, image 7. No acutecompression fracture in the lumbar spine. There is no spondylolisthesis.There is diffuse degenerative facet arthropathy. Diffuse disc spacenarrowing and endplate degeneration. Spinal cord: The conus medullaris andlower thoracic spinal cord are unremarkable.T12-L1: The conus medullaris is normal appearance at this level withoutspinal canal stenosis or neural foraminal narrowingL1-L2: Mildly bulging annulus without significant spinal canal stenosis.Mild left neural foraminal narrowing.L2-L3: The left neural foramen appears obstructed by asymmetrically bulgingannular material or disc herniation likely compressing the left L2 nerveroot. Series 701, image 19. There is no significant spinal canal stenosis.L3-L4: Diffusely bulging annulus with possible central subligamentous discherniation series 401, image 8 which does not cause significant spinalcanal stenosis. There is mild bilateral neural foraminal narrowing.L4-L5: Mild spinal canal stenosis without significant neural foraminalnarrowing.L5-S1: Marked degenerative facet arthropathy narrowing the left lateralrecess and compressing the exiting left S1 nerve root. Series 701, image 3.There is mild spinal canal stenosis. The neural foramen appear patent.Soft tissues: Unremarkable.IMPRESSION:Diffuse degeneration in the lumbar spine with degenerative facetarthropathy most prominent at the L5-S1 level where it narrows the leftlateral recess and compresses the exiting left S1 nerve root. The leftL2-L3 neural foramen is obstructed by combination of bulging annulus andendplate degeneration with likely compression of the left L2 nerve root.Thank you for allowing us to participate in the care of your patient.Dictated and Authenticated by: Willow Bueno MD 04/29/2020 4:50 PMEastern Time ([place] & [place])VradV/abbecTlissa you for referring DANIELA SAXENA to our office. Electronically Signed - EDWARD 05/02/20 11:07 Name Value Range Interpretation Code Description Data Nuria rce(s) Supporting Document(s) ID Date Data Source Celiac Disease Comprehensive 09/10/2019 12:00:00 AM EST eCW1 ([facility]) Name Value Range Interpretation Code Description Data Nuria rce(s) Supporting Document(s) Gliadin IgA Ab [Units/volume] in Serum by Immunoassay 6 0-19 DEAMIDATED GLIADIN ABS, IgA eCW1 ([facility]) Gliadin IgG Ab [Units/volume] in Serum by Immunoassay 3 0-19 DEAMIDATED GLIADIN ABS, IgG eCW1 ([facility]) Tissue transglutaminase IgA Ab [Units/volume] in Serum <2 0-3 t- TRANSGLUTAMINASE(tTG) IgA eCW1 ([facility]) Endomysium IgA Ab [Presence] in Serum Negative Negative ENDOMYSIAL ANTIBODY IgA eCW1 ([facility]) IgA [Mass/volume] in Serum or Plasma 268 64-422 IMMUNOGLOBULIN A eCW1 ([facility]) Tissue transglutaminase IgG Ab [Units/volume] in Serum <2 0-5 t- TRANSGLUTAMINASE(tTG) IgG eCW1 ([facility]) ID Date Data Source NON OCCUPATIONAL HEALTH PHYSICIAN CYTOLOGY REQ FOR SERVI 09/02/2019 12:00:00 AM EST eC W1 ([facility]) Name Value Range Interpretation Code Description Data Nuria rce(s) Supporting Document(s) URINE eCW1 ([facility]) Procedure Social History Code Duration Value Status Description Data Source(s ) Smoking 08/22/2020 12:00:00 AM EST Current Smoker completed Curre nt Smoker eCW1 ([facility]) Smoking 08/22/2020 12:00:00 AM EST Current Smoker completed Curre nt Smoker eCW1 ([facility]) Smoking 08/22/2020 12:00:00 AM EST Current Smoker completed Curre nt Smoker eCW1 ([facility]) Smoking 08/22/2020 12:00:00 AM EST Current Smoker completed Curre nt Smoker eCW1 ([facility]) Smoking 08/22/2020 12:00:00 AM EST Current Smoker completed Curre nt Smoker eCW1 ([facility]) Smoking 08/22/2020 12:00:00 AM EST Current Smoker completed Curre nt Smoker eCW1 ([facility]) Smoking 08/22/2020 12:00:00 AM EST Current Smoker completed Curre nt Smoker eCW1 ([facility]) Smoking 08/22/2020 12:00:00 AM EST Current Smoker completed Curre nt Smoker eCW1 ([facility]) Smoking 07/08/2020 12:00:00 AM EDT Current Smoker completed Curre nt Smoker eCW1 ([facility]) Smoking 07/08/2020 12:00:00 AM EDT Current Smoker completed Curre nt Smoker eCW1 ([facility]) Smoking 07/08/2020 12:00:00 AM EDT Current Smoker completed Curre nt Smoker eCW1 ([facility]) Smoking 07/08/2020 12:00:00 AM EDT Current Smoker completed Curre nt Smoker eCW1 ([facility]) Smoking 06/15/2020 12:00:00 AM EDT Former Smoker completed Former Smoker eCW1 ([facility]) Smoking 06/15/2020 12:00:00 AM EDT Former Smoker completed Former Smoker eCW1 ([facility]) Smoking 06/15/2020 12:00:00 AM EDT Former Smoker completed Former Smoker eCW1 ([facility]) Smoking 06/15/2020 12:00:00 AM EDT Former Smoker completed Former Smoker eCW1 ([facility]) Smoking 03/28/2020 12:00:00 AM EDT Former Smoker completed Former Smoker eCW1 ([facility]) Smoking 03/28/2020 12:00:00 AM EDT Former Smoker completed Former Smoker eCW1 ([facility]) Smoking 02/12/2020 12:00:00 AM EDT Former Smoker completed Former Smoker eCW1 ([facility]) Vital Signs ID Date Data Source UNK Name Value Range Interpretation Code Description Data Source(s) Diastolic blood pressure 77 mm[Hg] 77 mm[Hg] eCW1 ([facility]) Systolic blood pressure 142 mm[Hg] 142 mm[Hg] e CW1 ([facility]) Body temperature 97.8 [degF] 97.8 [degF] eCW1 ( [facility]) Respiratory rate 18 /min 18 /min eCW1 ([facility]) Heart rate 72 /min 72 /min eCW1 ([facility]) Body mass index (BMI) [Ratio] 37.64 kg/m2 37.64 kg/m2 W1 ([facility]) Body height 60.5 [in_i] 60.5 [in_i] eCW1 ([facility]) Body weight 196 [lb_av] 196 [lb_av] eCW1 ([facility]) Diastolic blood pressure 76 mm[Hg] 76 mm[Hg] eCW1 ([facility]) Systolic blood pressure 122 mm[Hg] 122 mm[Hg] e CW1 ([facility]) Body mass index (BMI) [Ratio] 38.80 kg/m2 38.80 kg/m2 eCW1 ([facility]) Body height 60.5 [in_i] 60.5 [in_i] eCW1 ([facility]) Body weight 202.0 [lb_av] 202.0 [lb_av] eCW1 ([facility]) Diastolic blood pressure 73 mm[Hg] 73 mm[Hg] eCW1 ([facility]) Systolic blood pressure 127 mm[Hg] 127 mm[Hg] e CW1 ([facility]) Body temperature 96.9 [degF] 96.9 [degF] eCW1 ( [facility]) Respiratory rate 18 /min 18 /min eCW1 ([facility]) Heart rate 73 /min 73 /min eCW1 ([facility]) Body mass index (BMI) [Ratio] 38.60 kg/m2 38.60 kg/m2 eCW1 ([facility]) Body height 60.5 [in_i] 60.5 [in_i] eCW1 ([facility]) Body weight 201 [lb_av] 201 [lb_av] eCW1 ([facility]) Body mass index (BMI) [Ratio] 39.1 kg/m2 39.1 k g/m2 MEDENT ([facility] Heart rate 64 /min 64 /min MEDENT ([facility] Diastolic blood pressure 60 mm[Hg] 60 mm[Hg] MEDENT ([facility] Systolic blood pressure 124 mm[Hg] 124 mm[Hg] M EDENT ([facility] Body weight 200.00 [lb_av] 200.00 [lb_av] MEDEN T ([facility] Body height 60 [in_i] 60 [in_i] MEDENT ([facility] 5'0" Diastolic blood pressure 78 mm[Hg] 78 mm[Hg] eCW1 ([facility]) Systolic blood pressure 137 mm[Hg] 137 mm[Hg] e CW1 ([facility]) Body temperature 96.9 [degF] 96.9 [degF] eCW1 ( [facility]) Respiratory rate 18 /min 18 /min eCW1 ([facility]) Heart rate 65 /min 65 /min eCW1 ([facility]) Body mass index (BMI) [Ratio] 37.84 kg/m2 37.84 kg/m2 eCW1 ([facility]) Body height 60.5 [in_i] 60.5 [in_i] eCW1 ([facility]) Body weight 197 [lb_av] 197 [lb_av] eCW1 ([facility]) Diastolic blood pressure 70 mm[Hg] 70 mm[Hg] eCW1 ([facility]) Systolic blood pressure 121 mm[Hg] 121 mm[Hg] e CW1 ([facility]) Body temperature 100.1 [degF] 100.1 [degF] eCW1 ([facility]) Respiratory rate 18 /min 18 /min eCW1 ([facility]) Heart rate 68 /min 68 /min eCW1 ([facility]) Body mass index (BMI) [Ratio] 38.03 kg/m2 38.03 kg/m2 eCW1 ([facility]) Body height 60.5 [in_i] 60.5 [in_i] eCW1 ([facility]) Body weight 198 [lb_av] 198 [lb_av] eCW1 ([facility]) Body mass index (BMI) [Ratio] 39.8 kg/m2 39.8 k g/m2 MEDENT ([facility]) Body weight 195.38 [lb_av] 195.38 [lb_av] MEDEN T ([facility] ) Body height 58.75 [in_i] 58.75 [in_i] MEDENT ([facility] ) 4'10.75" Diastolic blood pressure 57 mm[Hg] 57 mm[Hg] eCW1 ([facility]) Systolic blood pressure 130 mm[Hg] 130 mm[Hg] e CW1 ([facility]) Body temperature 98.7 [degF] 98.7 [degF] eCW1 ( [facility]) Respiratory rate 16 /min 16 /min eCW1 ([facility]) Heart rate 70 /min 70 /min eCW1 ([facility]) Body mass index (BMI) [Ratio] 38.22 kg/m2 38.22 kg/m2 W1 ([facility]) Body height 60.5 [in_us] 60.5 [in_us] eCW1 ([facility]) Body weight Measured 199 [lb_av] 199 [lb_av] eC W1 ([facility]) Body weight 89.813 kg 89.813 kg MEDENT ([facility], ) Body mass index (BMI) [Ratio] 36.2 kg/m2 36.2 k g/m2 MEDENT ([facility], ) Body weight 198.00 [lb_av] 198.00 [lb_av] MEDEN T ([facility], ) Body height 62 [in_i] 62 [in_i] MEDENT ([facility], ) 5'2" Diastolic blood pressure 58 mm[Hg] 58 mm[Hg] MEDENT ([facility], ) Systolic blood pressure 98 mm[Hg] 98 mm[Hg] M EDENT ([facility], ) Diastolic blood pressure 62 mm[Hg] 62 mm[Hg] eCW1 ([facility]) Systolic blood pressure 134 mm[Hg] 134 mm[Hg] e CW1 ([facility]) Body temperature 97.9 [degF] 97.9 [degF] eCW1 ( [facility]) Respiratory rate 17 /min 17 /min eCW1 ([facility]) Heart rate 79 /min 79 /min eCW1 ([facility]) Body mass index (BMI) [Ratio] 37.87 kg/m2 37.87 kg/m2 eCW1 ([facility]) Body height 60.5 [in_us] 60.5 [in_us] eCW1 ([facility]) Body weight Measured 197.2 [lb_av] 197.2 [lb_av ] eCW1 ([facility]) Diastolic blood pressure 64 mm[Hg] 64 mm[Hg] eCW1 ([facility]) Systolic blood pressure 118 mm[Hg] 118 mm[Hg] e CW1 ([facility]) Body temperature 96.6 [degF] 96.6 [degF] eCW1 ( [facility]) Respiratory rate 18 /min 18 /min eCW1 ([facility]) Heart rate 82 /min 82 /min eCW1 ([facility]) Body mass index (BMI) [Ratio] 37.15 kg/m2 37.15 kg/m2 eCW1 ([facility]) Body height 60.5 [in_us] 60.5 [in_us] eCW1 ([facility]) Body weight Measured 193.4 [lb_av] 193.4 [lb_av ] eCW1 ([facility]) Diastolic blood pressure 60 mm[Hg] 60 mm[Hg] MEDENT ([facility] Systolic blood pressure 110 mm[Hg] 110 mm[Hg] M EDENT ([facility] Body weight 194.00 [lb_av] 194.00 [lb_av] MEDEN T ([facility] Body height 62 [in_i] 62 [in_i] MEDENT ([facility] 5'2" Body mass index (BMI) [Ratio] 35.5 kg/m2 35.5 k g/m2 MEDENT ([facility] Heart rate 65 /min 65 /min MEDENT ([facility] Diastolic blood pressure 74 mm[Hg] 74 mm[Hg] eCW1 ([facility]) Systolic blood pressure 173 mm[Hg] 173 mm[Hg] e CW1 ([facility]) Body temperature 98.1 [degF] 98.1 [degF] eCW1 ( [facility]) Respiratory rate 18 /min 18 /min eCW1 ([facility]) Heart rate 65 /min 65 /min eCW1 ([facility]) Body mass index (BMI) [Ratio] 37.91 kg/m2 37.91 kg/m2 W1 ([facility]) Body height 60.5 [in_us] 60.5 [in_us] eCW1 ([facility]) Body weight Measured 197.4 [lb_av] 197.4 [lb_av ] eCW1 ([facility]) Diastolic blood pressure 51 mm[Hg] 51 mm[Hg] eCW1 ([facility]) Systolic blood pressure 103 mm[Hg] 103 mm[Hg] e CW1 ([facility]) Body temperature 97.5 [degF] 97.5 [degF] eCW1 ( [facility]) Respiratory rate 18 /min 18 /min eCW1 ([facility]) Heart rate 68 /min 68 /min eCW1 ([facility]) Body mass index (BMI) [Ratio] 37.07 kg/m2 37.07 kg/m2 eCW1 ([facility]) Body height 60.5 [in_us] 60.5 [in_us] eCW1 ([facility]) Body weight Measured [lb_av] eCW1 ([facility]) Diastolic blood pressure 68 mm[Hg] 68 mm[Hg] eCW1 ([facility]) Systolic blood pressure 136 mm[Hg] 136 mm[Hg] e CW1 ([facility]) Body temperature 96.0 [degF] 96.0 [degF] eCW1 ( [facility]) Respiratory rate 18 /min 18 /min eCW1 ([facility]) Heart rate 72 /min 72 /min eCW1 ([facility]) Body mass index (BMI) [Ratio] 37.76 kg/m2 37.76 kg/m2 eCW1 ([facility]) Body height 60.5 [in_us] 60.5 [in_us] eCW1 ([facility]) Body weight Measured 196.6 [lb_av] 196.6 [lb_av ] eCW1 ([facility]) Diastolic blood pressure 86 mm[Hg] 86 mm[Hg] eCW1 ([facility]) Systolic blood pressure 193 mm[Hg] 193 mm[Hg] e CW1 ([facility]) Body temperature 96.1 [degF] 96.1 [degF] eCW1 ( [facility]) Respiratory rate 17 /min 17 /min eCW1 ([facility]) Heart rate 77 /min 77 /min eCW1 ([facility]) Body mass index (BMI) [Ratio] 37.41 kg/m2 37.41 kg/m2 eCW1 ([facility]) Body height 60.5 [in_us] 60.5 [in_us] eCW1 ([facility]) Body weight Measured 194.8 [lb_av] 194.8 [lb_av ] eCW1 ([facility]) Patient Treatment Plan of Care Planned Activity Planned Date Details Description Data Source (s) FreeStyle Vero 14 Day Sensor - 09/19/2020 12:00:00 AM EST eCW1 ([facility]) FreeStyle Vero 14 Day Sensor - 09/19/2020 12:00:00 AM EST eCW1 ([facility]) FreeStyle Vero 14 Day Sensor - 09/19/2020 12:00:00 AM EST eCW1 ([facility]) Alprazolam 1 MG Oral Tablet [Xanax] 08/22/2020 12:00:00 AM EST eCW1 ([facility]) Alprazolam 1 MG Oral Tablet [Xanax] 08/22/2020 12:00:00 AM EST eCW1 ([facility]) Alprazolam 1 MG Oral Tablet [Xanax] 08/22/2020 12:00:00 AM EST eCW1 ([facility]) Alprazolam 1 MG Oral Tablet [Xanax] 08/22/2020 12:00:00 AM EST eCW1 ([facility]) Alprazolam 1 MG Oral Tablet [Xanax] 08/22/2020 12:00:00 AM EST eCW1 ([facility]) Alprazolam 1 MG Oral Tablet [Xanax] 08/22/2020 12:00:00 AM EST eCW1 ([facility]) Alprazolam 1 MG Oral Tablet [Xanax] 08/22/2020 12:00:00 AM EST eCW1 ([facility]) Alprazolam 1 MG Oral Tablet [Xanax] 08/22/2020 12:00:00 AM EST eCW1 ([facility]) Levothyroxine Sodium 0.125 MG Oral Tablet 06/27/2020 12:00:00 AM ED T eCW1 ([facility]) Levothyroxine Sodium 0.125 MG Oral Tablet 06/27/2020 12:00:00 AM ED T eCW1 ([facility]) Levothyroxine Sodium 0.125 MG Oral Tablet 06/27/2020 12:00:00 AM ED T eCW1 ([facility]) Levothyroxine Sodium 0.125 MG Oral Tablet 06/27/2020 12:00:00 AM ED T eCW1 ([facility]) Levothyroxine Sodium 0.125 MG Oral Tablet 06/27/2020 12:00:00 AM ED T eCW1 ([facility]) Levothyroxine Sodium 0.125 MG Oral Tablet 06/27/2020 12:00:00 AM ED T eCW1 ([facility]) Levothyroxine Sodium 0.125 MG Oral Tablet 06/27/2020 12:00:00 AM ED T eCW1 ([facility]) Levothyroxine Sodium 0.125 MG Oral Tablet 06/27/2020 12:00:00 AM ED T eCW1 ([facility]) Levothyroxine Sodium 0.125 MG Oral Tablet 06/27/2020 12:00:00 AM ED T eCW1 ([facility]) Levothyroxine Sodium 0.125 MG Oral Tablet 06/27/2020 12:00:00 AM ED T eCW1 ([facility]) Levothyroxine Sodium 0.125 MG Oral Tablet 06/27/2020 12:00:00 AM ED T eCW1 ([facility]) FreeStyle Vero [place] - 06/15/2020 12:00:00 AM EDT eCW1 ([facility]) FreeStyle Vero [place] - 06/15/2020 12:00:00 AM EDT eCW1 ([facility]) FreeStyle Vero [place] - 06/15/2020 12:00:00 AM EDT eCW1 ([facility]) FreeStyle Vero [place] - 06/15/2020 12:00:00 AM EDT eCW1 ([facility]) gabapentin 100 MG Oral Capsule 03/28/2020 12:00:00 AM EDT eCW1 ([facility]) gabapentin 100 MG Oral Capsule 03/28/2020 12:00:00 AM EDT eCW1 ([facility]) OneTouch Ultra Test - 12/23/2019 12:00:00 AM EDT eCW1 ([facility]) OneTouch UltraSoft Lancets - 12/23/2019 12:00:00 AM EDT eCW1 ([facility]) OneTouch Ultra Test - 12/23/2019 12:00:00 AM EDT eCW1 ([facility]) OneTouch Ultra Test - 12/23/2019 12:00:00 AM EDT eCW1 ([facility]) 0.5 ML dulaglutide 1.5 MG/ML Auto-Injector [Trulicity] 11/20/2019 12:00:00 AM EST eCW1 ([facility]) Chlorthalidone 25 MG Oral Tablet 09/30/2019 12:00:00 AM EST eCW1 ([facility]) Chlorthalidone 25 MG Oral Tablet 09/30/2019 12:00:00 AM EST eCW1 ([facility]) Chlorthalidone 25 MG Oral Tablet 09/30/2019 12:00:00 AM EST eCW1 ([facility]) Chlorthalidone 25 MG Oral Tablet 09/30/2019 12:00:00 AM EST eCW1 ([facility]) Chlorthalidone 25 MG Oral Tablet 09/30/2019 12:00:00 AM EST eCW1 ([facility]) Chlorthalidone 25 MG Oral Tablet 09/30/2019 12:00:00 AM EST eCW1 ([facility]) Chlorthalidone 25 MG Oral Tablet 09/30/2019 12:00:00 AM EST eCW1 ([facility]) Chlorthalidone 25 MG Oral Tablet 09/30/2019 12:00:00 AM EST eCW1 ([facility]) Chlorthalidone 25 MG Oral Tablet 09/30/2019 12:00:00 AM EST eCW1 ([facility]) Chlorthalidone 25 MG Oral Tablet 09/30/2019 12:00:00 AM EST eCW1 ([facility]) Chlorthalidone 25 MG Oral Tablet 09/30/2019 12:00:00 AM EST eCW1 ([facility]) Chlorthalidone 25 MG 09/30/2019 12:00:00 AM EST eCW1 ([facility]) Losartan Potassium 25 MG Oral Tablet 09/10/2019 12:00:00 AM EST eCW1 ([facility]) Losartan Potassium 25 MG Oral Tablet 09/10/2019 12:00:00 AM EST eCW1 ([facility]) Losartan Potassium 25 MG Oral Tablet 09/10/2019 12:00:00 AM EST eCW1 ([facility]) Losartan Potassium 25 MG Oral Tablet 09/10/2019 12:00:00 AM EST eCW1 ([facility]) Losartan Potassium 25 MG Oral Tablet 09/10/2019 12:00:00 AM EST eCW1 ([facility]) Losartan Potassium 25 MG Oral Tablet 09/10/2019 12:00:00 AM EST eCW1 ([facility]) Losartan Potassium 25 MG Oral Tablet 09/10/2019 12:00:00 AM EST eCW1 ([facility]) Losartan Potassium 25 MG Oral Tablet 09/10/2019 12:00:00 AM EST eCW1 ([facility]) Losartan Potassium 25 MG 09/10/2019 12:00:00 AM EST eCW1 ([facility]) Loperamide Hydrochloride 2 MG Oral Capsule 09/10/2019 12:00:[address] eCW1 ([facility]) Losartan Potassium 25 MG Oral Tablet 09/10/2019 12:00:00 AM EST eCW1 ([facility]) Levothyroxine Sodium 0.112 MG Oral Tablet 08/26/2019 12:00:00 AM ES T eCW1 ([facility]) Levothyroxine Sodium 0.112 MG Oral Tablet 08/26/2019 12:00:00 AM ES T eCW1 ([facility]) Levothyroxine Sodium 0.112 MG Oral Tablet 08/26/2019 12:00:00 AM ES T eCW1 ([facility]) Nebulizer - 08/26/2019 12:00:00 AM EST e CW1 ([facility]) Levothyroxine Sodium 0.112 MG Oral Tablet 08/26/2019 12:00:00 AM ES T eCW1 ([facility]) Nebulizer - 08/26/2019 12:00:00 AM EST e CW1 ([facility]) Levothyroxine Sodium 0.112 MG Oral Tablet 08/26/2019 12:00:00 AM ES T eCW1 ([facility]) Levothyroxine Sodium 0.112 MG Oral Tablet 08/26/2019 12:00:00 AM ES T eCW1 ([facility]) Umeclidinium [place] 62.5 MCG/INH 08/26/2019 12:00:00 AM EST eCW1 ([facility]) Albuterol 0.83 MG/ML Inhalant Solution 08/26/2019 12:00:00 AM EST eCW1 ([facility]) Nebulizer - 08/26/2019 12:00:00 AM EST e CW1 ([facility])
[2020-10-01] MEDS ORDERED: NS 1,000 ML IV SCH (12:26)
--- NOTE | 2020-10-01 12:44 | REP ---
INDICATION: unilateral weakness L arm. COMPARISON: None. TECHNIQUE: CT BRAIN PERFORMED IN THE AXIAL PLANE. CORONAL RECONSTRUCTION IMAGES ARE PERFORMED. FINDINGS: There is moderate diffuse atrophy. There is no midline shift. Left posterior fossa arachnoid cyst is present measuring about 4 x 2.5 cm. Vascular calcifications are seen in the carotid siphons. Visualized paranasal sinuses and mastoid air cells are clear. IMPRESSION: No acute hemorrhage. No acute intracranial finding. Chronic atrophy. Left posterior fossa arachnoid cyst. <Electronically signed by Alonzo Amos > 10/01/20 [id number]
--- NOTE | 2020-10-01 12:46 | REP ---
INDICATION: Altered Mental Status. COMPARISON: None. TECHNIQUE: SINGLE PORTABLE AP VIEW OF THE CHEST WAS PERFORMED. FINDINGS: No acute infiltrate is seen. There is mild elevation of the right hemidiaphragm. The heart does not appear to be significantly enlarged. There is calcification of the thoracic aorta. The mediastinal silhouette is otherwise unremarkable. IMPRESSION: NO ACUTE PULMONARY DISEASE. <Electronically signed by Alonzo Amos > 10/01/20 [id number]
[2020-10-01 12:58] LABS: BASO # 0.1 10^3/uL (0.0-0.2); BASO % 0.6 % (0.0-1.0); EOS # 0.3 10^3/uL (0.0-0.5); EOS % 2.9 % (0.0-3.0); HEMATOCRIT 41.6 % (36.0-47.0); HEMOGLOBIN 12.7 g/dl (12.0-15.5); LYMPH # 1.9 10^3/uL (1.5-5.0); LYMPH % 17.4 % (24.0-44.0); MEAN CORPUSCULAR HEMOGLOBIN 28.7 pg (27.0-33.0); MEAN CORPUSCULAR HGB CONC 30.5 g/dl (32.0-36.5); MEAN CORPUSCULAR VOLUME 93.9 fl (80.0-96.0); MONO # 0.7 10^3/uL (0.0-0.8); MONO % 6.1 % (0.0-5.0); NEUTROPHILS # 7.9 10^3/uL (1.5-8.5); NEUTROPHILS % 72.5 % (36.0-66.0); PLATELET COUNT, AUTOMATED 187 10^3/uL (150-450); RED BLOOD COUNT 4.43 10^6/uL (4.00-5.40); WHITE BLOOD COUNT 10.9 10^3/uL (4.0-10.0)
[2020-10-01] MEDS ORDERED: BD I SUBQ (13:03)
[2020-10-01] MEDS ORDERED: GABA-1171 PO (13:03)
[2020-10-01] MEDS ORDERED: ALPR1TAB3 PO (13:03)
[2020-10-01 13:34] LABS: ACETAMINOPHEN LEVEL < 2.0 UG/ML (10.0-30.0); ALT/SGPT 22 U/L (12-78); BILIRUBIN,DIRECT < 0.1 MG/DL (0.0-0.2); BILIRUBIN,TOTAL 0.2 MG/DL (0.2-1.0); BLOOD UREA NITROGEN 34 MG/DL (7-18); CALCIUM LEVEL 8.3 MG/DL (8.8-10.2); CARBON DIOXIDE LEVEL 31 MEQ/L (21-32); CHLORIDE LEVEL 104 MEQ/L (98-107); CPK CREATINE PHOSPHOKINASE 46 U/L (26-192); CREATININE FOR GFR 1.46 MG/DL (0.55-1.30); ETHYL ALCOHOL (ETHANOL) < 0.003 % (0.000-0.010); GLOMERULAR FILTRATION RATE 36.9 (>39); GLUCOSE, FASTING 223 MG/DL (70-100); MB/CK RELATIVE INDEX 2.17 (< OR =4); POTASSIUM SERUM 4.3 MEQ/L (3.5-5.1); SALICYLATE LEVEL < 1.7 MG/DL (5.0-30.0); SODIUM LEVEL 141 MEQ/L (136-145); THYROID STIMULATING HORMONE 0.456 uIU/ML (0.358-3.740); TOTAL PROTEIN 6.2 GM/DL (6.4-8.2); TROPONIN I < 0.02 NG/ML (< 0.10)
[2020-10-01 14:08] LABS: RSV AMPLIFICATION NEGATIVE (NEGATIVE)
--- OUTSIDE RECORDS SUMMARY | 2020-10-01 14:14 | CCD ---
Author Author [facility] Organization [facility] Address Unknown Phone Unavailable Care Team Providers Care Pipe Installer Name Role Phone Nova Craig MD Unavailable [...] Unavailable Unavailable Nova Craig MD Unavailable Unavailable oNva Craig MD Unavailable Unavailable Nova Craig MD [...] is protected by Article 27-F of the [facility] Public Health law. If you continue you may have access to information: Regarding HIV / AIDS; Provided by facilities licensed or operated by the [facility] Office of Mental Health; or Provided by the [facility] Office for People With Developmental Disabilities. If such information is present, then the following [facility] mandated warning applies: This information has been [...] law may result in a fine or group home sentence or both. A general authorization for the release of medical or other information is NOT sufficient authorization for further disc losure. Allergies and Adverse Reactions Type Description Substance Reaction Status Data Source(s ) tetracycline Tetracycline HCl Tetracycline Rash Active [facility] ([facility]) Encounters Encounter Providers Location Date Indications Data Source(s ) [place] [address] [place] [address] 09/21/2020 12:00:00 AM EST eCW1 ([facility]) [place] [address] [facility] [address] 09/19/2020 12:00:00 AM EST eCW1 ([facility]) [place] [address] [facility] [address] 09/02/2020 12:00:00 AM EST eCW1 ([facility]) Outpatient Attender: OSCAR FULLER PAConsultant: RANDELL SAAB MD 08/29/2020 12:11:56 PM EST [facility] Unknown [address] [facility] [address] 08/26/2020 12:00:00 AM EST eCW1 ([facility]) Out[place] [address] [facility] [address] 08/22/2020 12:00:00 AM EST eCW1 ([facility]) Unknown [address] [facility] [address] 08/22/2020 12:00:00 AM EST eCW1 ([facility]) [place] [address] [facility] [address] 08/22/2020 12:00:00 AM EST eCW1 ([facility]) [place] [address] [facility] [address] 08/08/2020 12:00:00 AM EST eCW1 ([facility]) [place] [address] [facility] [address] 07/18/2020 12:00:00 AM EST eCW1 ([facility]) [place] [address] [facility] [address] 07/14/2020 12:00:00 AM EDT eCW1 ([facility]) [place] [address] [facility] [address] 07/08/2020 12:00:00 AM EDT eCW1 ([facility]) Unknown [address] [facility] [address] 06/28/2020 12:00:00 AM EDT eCW1 [facility] [place] [address] [facility] [address] 06/27/2020 12:00:00 AM EDT eCW1 ([facility]) Unknown [address] [facility] [place] [address] 06/27/2020 12:00:00 AM EDT eCW1 ([facility]) Outpatient Attender: OSCAR SILVER Physical Therapy 06/23/2020 11:30:00 AM EDT [facility] ([facility]) Outpatient [address] [facility] [place] [address] 06/15/2020 12:00:00 AM EDT eCW1 ([facility]) Unknown [address] [facility] Y [address] 06/15/2020 12:00:00 AM EDT eCW1 ([facility]) Outpatient Attender: Wu Craig MD Physical Therapy 05/18/2020 0 3:00:00 PM EDT [facility] ([facility]) Office Visit Attender: Wu Craig MD Physical Therapy 2019 06:00:00 PM EDT [facility] ([facility]) Outpatient Attender: CARLOS PATEL [facility] Office 04/16 02:45:00 PM EDT MEDENT ([facility] [place] [address] [facility] [address] 04/06/2020 12:00:00 AM EDT eCW1 ([facility]) Outpatient [address] [facility] Y [address] 03/28/2020 12:00:00 AM EDT eCW1 ([facility]) Outpatient Attender: Wu Craig MD Physical Therapy 03/07/2020 0 3:30:00 PM EDT MED[facility] ([facility]) Outpatient Referrer: Wu Craig MD [...] PM EDT [facility] Unknown [address] [facility] [address] 02/20/2020 12:00:00 AM EDT eCW1 ([facility]) [place] [address] [facility] [address] 02/12/2020 12:00:00 AM EDT eCW1 ([facility]) [facility] [place] [address] [facility] [address] 02/12/2020 12:00:00 AM EDT eCW1 ([facility]) Outpatient Referrer: Wu Craig MD 02/10/2020 09:05:00 AM EDT [facility] [place] [address] [facility] [address] 02/09/2020 12:00:00 AM EDT eCW1 ([facility]) Outpatient Referrer: Wu Craig MD 02/05/2020 01:15:00 PM EDT [facility] Outpatient 02/05/2020 01:13:00 PM EDT [facility] Outpatient 02/05/2020 12:30:00 PM EDT [facility] [address] [facility] [address] 02/05/2020 12:00:00 AM EDT eCW1 ([facility]) Outpatient Attender: Wu Craig MD Physical Therapy 02/02/2020 0 3:15:00 PM EDT [facility] ([facility]) [facility] [place] [address] [facility] [address] 02/01/2020 12:00:00 AM EDT eCW1 ([facility] [address] [facility] [address] 01/31/2020 12:00:00 AM EDT eCW1 ([facility]) [facility] [place] [address] [facility] [address] 01/22/2020 12:00:00 AM EDT eCW1 ([facility]) [facility] [place] [address] [facility] [address] 01/11/2020 12:00:00 AM EDT eCW1 ([facility]) [facility] [place] [address] [facility] [address] 01/09/2020 12:00:00 AM EDT [facility]CW[facility] [address] [facility] [place] [address] 12/28/2019 12:00:00 AM EDT [facility]CW1 [facility] [address] [facility] [address] 12/28/2019 12:00:00 AM EDT eCW1 [facility] [address] [facility] [address] 12/23/2019 12:00:00 AM EDT eCW1 [facility] [address] [facility] [address] 11/24/2019 12:00:00 AM EDT eCW1 [facility] Outpatient 11/23/2019 01:27:00 PM EDT [facility] [address] [facility] [address] 11/20/2019 12:00:00 AM EST eCW1 [facility] [address] [facility] [place] [address] 11/19/2019 12:00:00 AM EST eCW1 ([facility] [address] [facility] [place] [address] 11/12/2019 12:00:00 AM EST eCW1 ([facility]) [facility] [place] [address] [facility] [address] 11/10/2019 12:00:00 AM EST eCW1 ([facility]) [facility] [place] [address] [facility] [address] 11/05/2019 12:00:00 AM EST eCW1 ([facility]) [facility] [address] [facility] [address] 11/04/2019 12:00:00 AM EST eCW1 ([facility]) [facility] [address] [facility] [address] 10/21/2019 12:00:00 AM EST eCW1 ([facility]) [facility] [address] [facility] [address] 10/20/2019 12:00:00 AM EST eCW1 ([facility]) [facility] [address] [facility] [address] 2019 12:00:00 AM EST eCW1 ([facility]) [facility] [address] [facility] [address] 10/14/2019 12:00:00 AM EST eCW1 ([facility]) [facility] [address] [facility] [address] 10/14/2019 12:00:00 AM EST eCW1 ([facility]) [facility] [address] [facility] [address] 09/30/2019 12:00:00 AM EST eCW1 ([facility]) [facility] [address] [facility] [address] 09/29/2019 12:00:00 AM EST eCW1 ([facility]) [facility] [address] [facility] [address] 09/22/2019 12:00:00 AM EST eCW1 ([facility]) [facility] [address] [facility] [address] 09/13/2019 12:00:00 AM EST eCW1 ([facility]) [facility] [address] [facility] [place] [address] 09/10/2019 12:00:00 AM EST eCW1 ([facility]) [facility] [address] [facility] [address] 09/02/2019 12:00:00 AM EST eCW1 ([facility]) [facility] [address] [facility] [place] [address] 09/02/2019 12:00:00 AM EST eCW1 ([facility]) [facility] [address] [facility] [place] [address] 09/02/2019 12:00:00 AM EST eCW1 ([facility]) [facility] [address] [facility] [place] [address] 09/02/2019 12:00:00 AM EST eCW1 ([facility]) [facility] [address] [facility] [address] 08/27/2019 12:00:00 AM EST eCW1 ([facility]) [facility] [address] [facility] [place] [address] 08/26/2019 12:00:00 AM EST eCW1 ([facility]) [facility] [address] [facility] [place] [address] 08/25/2019 12:00:00 AM EST eCW1 ([facility]) [facility] [address] [facility] [place] [address] 08/21/2019 12:00:00 AM EST eCW1 ([facility]) [facility] [address] [facility] [place] [address] 08/10/2019 12:00:00 AM EST [facility] [address] [facility] [place] [address] 08/07/2019 12:00:00 AM EST eCW1 ([facility]) Immunizations Vaccine Date Status Description Data Source(s) influenza, recombinant, quadrIvalent,injectable, prese rvative free 08/22/2020 02:36:00 PM EST completed eCW1 ([facility]) influenza, recombinant, quadrIvalent,injectable, prese rvative free 08/22/2020 02:36:00 PM EST completed eCW1 ([facility]) influenza, recombinant, quadrIvalent,injectable, prese rvative free 08/22/2020 02:36:00 PM EST completed eCW1 ([facility]) influenza, recombinant, quadrIvalent,injectable, prese rvative free 08/22/2020 02:36:00 PM EST completed eCW1 ([facility]) influenza, recombinant, quadrIvalent,injectable, prese rvative free 08/22/2020 02:36:00 PM EST completed eCW1 ([facility]) influenza, recombinant, quadrIvalent,injectable, prese rvative free 08/22/2020 02:36:00 PM EST completed eCW1 ([facility]) influenza, recombinant, quadrIvalent,injectable, prese rvative free 08/22/2020 02:36:00 PM EST completed eCW1 ([facility]) influenza, recombinant, quadrIvalent,injectable, prese rvative free 08/22/2020 02:36:00 PM EST completed eCW1 ([facility]) Medications Medication Brand Name Start Date Product Form Dose Route Admi nistrative Instructions Pharmacy Instructions Status Indications Reaction Description Data Source(s) FreeStyle Vero 14 Day Sensor - FreeStyle Vero 14 Day Senso r - 09/19/2020 12:00:00 AM EST active FreeStyl e Vero 14 Day Sensor - eCW1 ([facility]) FreeStyle Vero 14 Day Sensor - FreeStyle Vero 14 Day Senso r - 09/19/2020 12:00:00 AM EST active FreeStyl e Vero 14 Day Sensor - eCW1 ([facility]) FreeStyle Vero 14 Day Sensor - FreeStyle Vero 14 Day Senso r - 09/19/2020 12:00:00 AM EST active FreeStyl e Vero 14 Day Sensor - eCW1 ([facility]) Lidocaine Hydrochloride 40 MG/ML Topical Cream Aspercreme W/ Lidocaine 08/29/2020 12:00:00 AM EST active [facility] Alprazolam 1 MG Oral Tablet [Xanax] Xanax 1 MG Xanax 1 MG 08/22/2020 12:00:00 AM EST 1.0 {tablet} active Xanax 1 MG eCW1 ([facility]) Alprazolam 1 MG Oral Tablet [Xanax] Xanax 1 MG Xanax 1 MG 08/22/2020 12:00:00 AM EST 1.0 {tablet} active Xanax 1 MG eCW1 ([facility]) Alprazolam 1 MG Oral Tablet [Xanax] Xanax 1 MG Xanax 1 MG 08/22/2020 12:00:00 AM EST 1.0 {tablet} active Xanax 1 MG eCW1 ([facility]) Alprazolam 1 MG Oral Tablet [Xanax] Xanax 1 MG Xanax 1 MG 08/22/2020 12:00:00 AM EST 1.0 {tablet} active Xanax 1 MG eCW1 ([facility]) Alprazolam 1 MG Oral Tablet [Xanax] Xanax 1 MG Xanax 1 MG 08/22/2020 12:00:00 AM EST 1.0 {tablet} active Xanax 1 MG eCW1 ([facility]) Alprazolam 1 MG Oral Tablet [Xanax] Xanax 1 MG Xanax 1 MG 08/22/2020 12:00:00 AM EST 1.0 {tablet} active Xanax 1 MG eCW1 ([facility]) Alprazolam 1 MG Oral Tablet [Xanax] Xanax 1 MG Xanax 1 MG 08/22/2020 12:00:00 AM EST 1.0 {tablet} active Xanax 1 MG eCW1 ([facility]) Alprazolam 1 MG Oral Tablet [Xanax] Xanax 1 MG Xanax 1 MG 08/22/2020 12:00:00 AM EST 1.0 {tablet} active Xanax 1 MG eCW1 ([facility]) Fluocinolone Acetonide 0.1 MG/ML Topical Solution Fluo cinolone Acetonide 0.01 % Fluocinolone Acetonide 0.01 % 07/08/2020 12:00:00 AM EDT 1.0 {appli cation} active Fluocinolone Acetonide 0. 01 % eCW1 ([facility]) Fluocinolone Acetonide 0.1 MG/ML Topical Solution Fluo cinolone Acetonide 0.01 % Fluocinolone Acetonide 0.01 % 07/08/2020 12:00:00 AM EDT 1.0 {appli cation} active Fluocinolone Acetonide 0. 01 % eCW1 ([facility]) Fluocinolone Acetonide 0.1 MG/ML Topical Solution Fluo cinolone Acetonide 0.01 % Fluocinolone Acetonide 0.01 % 07/08/2020 12:00:00 AM EDT 1.0 {appli cation} active Fluocinolone Acetonide 0. 01 % eCW1 ([facility]) Fluocinolone Acetonide 0.1 MG/ML Topical Solution Fluo cinolone Acetonide 0.01 % Fluocinolone Acetonide 0.01 % 07/08/2020 12:00:00 AM EDT 1.0 {appli cation} active Fluocinolone Acetonide 0. 01 % eCW1 ([facility]) Fluocinolone Acetonide 0.1 MG/ML Topical Solution Fluo cinolone Acetonide 0.01 % Fluocinolone Acetonide 0.01 % 07/08/2020 12:00:00 AM EDT 1.0 {appli cation} active Fluocinolone Acetonide 0. 01 % eCW1 ([facility]) Fluocinolone Acetonide 0.1 MG/ML Topical Solution Fluo cinolone Acetonide 0.01 % Fluocinolone Acetonide 0.01 % 07/08/2020 12:00:00 AM EDT 1.0 {appli cation} active Fluocinolone Acetonide 0. 01 % eCW1 ([facility]) Fluocinolone Acetonide 0.1 MG/ML Topical Solution Fluo cinolone Acetonide 0.01 % Fluocinolone Acetonide 0.01 % 07/08/2020 12:00:00 AM EDT 1.0 {appli cation} active Fluocinolone Acetonide 0. 01 % eCW1 ([facility]) Fluocinolone Acetonide 0.1 MG/ML Topical Solution Fluo cinolone Acetonide 0.01 % Fluocinolone Acetonide 0.01 % 07/08/2020 12:00:00 AM EDT 1.0 {appli cation} active Fluocinolone Acetonide 0. 01 % eCW1 ([facility]) Fluocinolone Acetonide 0.1 MG/ML Topical Solution Fluo cinolone Acetonide 0.01 % Fluocinolone Acetonide 0.01 % 07/08/2020 12:00:00 AM EDT 1.0 {appli cation} active Fluocinolone Acetonide 0. 01 % eCW1 ([facility]) Fluocinolone Acetonide 0.1 MG/ML Topical Solution Fluo cinolone Acetonide 0.01 % Fluocinolone Acetonide 0.01 % 07/08/2020 12:00:00 AM EDT 1.0 {appli cation} active Fluocinolone Acetonide 0. 01 % eCW1 ([facility]) Fluocinolone Acetonide 0.1 MG/ML Topical Solution Fluo cinolone Acetonide 0.01 % Fluocinolone Acetonide 0.01 % 07/08/2020 12:00:00 AM EDT 1.0 {appli cation} active Fluocinolone Acetonide 0. 01 % eCW1 ([facility]) Fluocinolone Acetonide 0.1 MG/ML Topical Solution Fluo cinolone Acetonide 0.01 % Fluocinolone Acetonide 0.01 % 07/08/2020 12:00:00 AM EDT 1.0 {appli cation} active Fluocinolone Acetonide 0. 01 % eCW1 ([facility]) Levothyroxine Sodium 0.125 MG Oral Tablet Levothyroxin e Sodium 125 MCG Levothyroxine Sodium 125 MCG 06/27/2020 12:00:00 AM EDT active Levothyroxine Sodium 125 MCG eCW1 ([facility]) Levothyroxine Sodium 0.125 MG Oral Tablet Levothyroxin e Sodium 125 MCG Levothyroxine Sodium 125 MCG 06/27/2020 12:00:00 AM EDT active Levothyroxine Sodium 125 MCG eCW1 ([facility]) Levothyroxine Sodium 0.125 MG Oral Tablet Levothyroxin e Sodium 125 MCG Levothyroxine Sodium 125 MCG 06/27/2020 12:00:00 AM EDT active Levothyroxine Sodium 125 MCG eCW1 ([facility]) Levothyroxine Sodium 0.125 MG Oral Tablet Levothyroxin e Sodium 125 MCG Levothyroxine Sodium 125 MCG 06/27/2020 12:00:00 AM EDT active Levothyroxine Sodium 125 MCG eCW1 ([facility]) Levothyroxine Sodium 0.125 MG Oral Tablet Levothyroxin e Sodium 125 MCG Levothyroxine Sodium 125 MCG 06/27/2020 12:00:00 AM EDT active Levothyroxine Sodium 125 MCG eCW1 ([facility]) Levothyroxine Sodium 0.125 MG Oral Tablet Levothyroxin e Sodium 125 MCG Levothyroxine Sodium 125 MCG 06/27/2020 12:00:00 AM EDT active Levothyroxine Sodium 125 MCG eCW1 ([facility]) Levothyroxine Sodium 0.125 MG Oral Tablet Levothyroxin e Sodium 125 MCG Levothyroxine Sodium 125 MCG 06/27/2020 12:00:00 AM EDT active Levothyroxine Sodium 125 MCG eCW1 ([facility]) Levothyroxine Sodium 0.125 MG Oral Tablet Levothyroxin e Sodium 125 MCG Levothyroxine Sodium 125 MCG 06/27/2020 12:00:00 AM EDT active Levothyroxine Sodium 125 MCG eCW1 ([facility]) Levothyroxine Sodium 0.125 MG Oral Tablet Levothyroxin e Sodium 125 MCG Levothyroxine Sodium 125 MCG 06/27/2020 12:00:00 AM EDT active Levothyroxine Sodium 125 MCG eCW1 ([facility]) Levothyroxine Sodium 0.125 MG Oral Tablet Levothyroxin e Sodium 125 MCG Levothyroxine Sodium 125 MCG 06/27/2020 12:00:00 AM EDT active Levothyroxine Sodium 125 MCG eCW1 ([facility]) Levothyroxine Sodium 0.125 MG Oral Tablet Levothyroxin e Sodium 125 MCG Levothyroxine Sodium 125 MCG 06/27/2020 12:00:00 AM EDT active Levothyroxine Sodium 125 MCG eCW1 ([facility]) Levothyroxine Sodium 0.125 MG Oral Tablet Levothyroxin e Sodium 125 MCG Levothyroxine Sodium 125 MCG 06/27/2020 12:00:00 AM EDT active Levothyroxine Sodium 125 MCG eCW1 ([facility]) Levothyroxine Sodium 0.125 MG Oral Tablet Levothyroxin e Sodium 125 MCG Levothyroxine Sodium 125 MCG 06/27/2020 12:00:00 AM EDT active Levothyroxine Sodium 125 MCG eCW1 ([facility]) Levothyroxine Sodium 0.125 MG Oral Tablet Levothyroxin e Sodium 125 MCG Levothyroxine Sodium 125 MCG 06/27/2020 12:00:00 AM EDT active Levothyroxine Sodium 125 MCG eCW1 ([facility]) Levothyroxine Sodium 0.125 MG Oral Tablet Levothyroxin e Sodium 125 MCG Levothyroxine Sodium 125 MCG 06/27/2020 12:00:00 AM EDT active Levothyroxine Sodium 125 MCG eCW1 ([facility]) FreeStyle Vero [place] - FreeStyle Vero [place] - 06/15/2020 12:00: 00 AM EDT active FreeStyle Vero [place] - eCW1 ([facility]) FreeStyle Vero [place] - FreeStyle Vero [place] - 06/15/2020 12:00: 00 AM EDT active FreeStyle Vero [place] - eCW1 ([facility]) FreeStyle Vero [place] - FreeStyle Vero [place] - 06/15/2020 12:00: 00 AM EDT active FreeStyle Vero [place] - eCW1 ([facility]) FreeStyle Vero [place] - FreeStyle Vero [place] - 06/15/2020 12:00: 00 AM EDT active FreeStyle Vero [place] - eCW1 ([facility]) FreeStyle Vero [place] - FreeStyle Vero [place] - 06/15/2020 12:00: 00 AM EDT active FreeStyle Vero [place] - eCW1 ([facility]) FreeStyle Vero [place] - FreeStyle Vero [place] - 06/15/2020 12:00: 00 AM EDT active FreeStyle Vero [place] - eCW1 ([facility]) FreeStyle Vero [place] - FreeStyle Vero [place] - 06/15/2020 12:00: 00 AM EDT active FreeStyle Vero [place] - eCW1 ([facility]) FreeStyle Vero [place] - FreeStyle Vero [place] - 06/15/2020 12:00: 00 AM EDT active FreeStyle Vero [place] - eCW1 ([facility]) FreeStyle Vero [place] - FreeStyle Vero [place] - 06/15/2020 12:00: 00 AM EDT active FreeStyle Vero [place] - eCW1 ([facility]) FreeStyle Vero [place] - FreeStyle Vero [place] - 06/15/2020 12:00: 00 AM EDT active FreeStyle Vero [place] - eCW1 ([facility]) FreeStyle Vero [place] - FreeStyle Vero [place] - 06/15/2020 12:00: 00 AM EDT active FreeStyle Vero [place] - eCW1 ([facility]) FreeStyle Vero [place] - FreeStyle Vero [place] - 06/15/2020 12:00: 00 AM EDT active FreeStyle Vero [place] - eCW1 ([facility]) FreeStyle Vero [place] - FreeStyle Vero [place] - 06/15/2020 12:00: 00 AM EDT active FreeStyle Vero [place] - eCW1 ([facility]) FreeStyle Vero [place] - FreeStyle Vero [place] - 06/15/2020 12:00: 00 AM EDT active FreeStyle Vero [place] - eCW1 ([facility]) FreeStyle Vero [place] - FreeStyle Vero [place] - 06/15/2020 12:00: 00 AM EDT active FreeStyle Vero [place] - eCW1 ([facility]) FreeStyle Vero [place] - FreeStyle Vero [place] - 06/15/2020 12:00: 00 AM EDT active FreeStyle Vero [place] - eCW1 ([facility]) gabapentin 100 MG Oral Capsule Gabapentin 100 MG Gabapentin 100 MG 03/28/2020 12:00:00 AM EDT 1.0 {capsule} active G abapentin 100 MG eCW1 ([facility]) gabapentin 100 MG Oral Capsule Gabapentin 100 MG Gabapentin 100 MG 03/28/2020 12:00:00 AM EDT 1.0 {capsule} active G abapentin 100 MG eCW1 ([facility]) gabapentin 100 MG Oral Capsule Gabapentin 100 MG Gabapentin 100 MG 03/28/2020 12:00:00 AM EDT 1.0 {capsule} active G abapentin 100 MG eCW1 ([facility]) gabapentin 100 MG Oral Capsule Gabapentin 100 MG Gabapentin 100 MG 03/28/2020 12:00:00 AM EDT 1.0 {capsule} active G abapentin 100 MG eCW1 ([facility]) gabapentin 100 MG Oral Capsule Gabapentin 100 MG Gabapentin 100 MG 03/28/2020 12:00:00 AM EDT 1.0 {capsule} active G abapentin 100 MG eCW1 ([facility]) OneTouch UltraSoft Lancets - OneTouch UltraSoft Lancets - 12:00:00 AM EDT active OneTouch UltraSof t Lancets - eCW1 ([facility]) OneTouch UltraSoft Lancets - OneTouch UltraSoft Lancets - 12:00:00 AM EDT active OneTouch UltraSof t Lancets - eCW1 ([facility]) OneTouch Ultra Test - UNK 12/23/2019 12:00:00 AM EDT active OneTouch Ultra Test - eCW1 ([facility]) OneTouch Ultra Test - UNK 12/23/2019 12:00:00 AM EDT active OneTouch Ultra Test - eCW1 ([facility]) OneTouch Ultra Test - UNK 12/23/2019 12:00:00 AM EDT active OneTouch Ultra Test - eCW1 ([facility]) OneTouch Ultra Test - UNK 12/23/2019 12:00:00 AM EDT active OneTouch Ultra Test - eCW1 ([facility]) OneTouch UltraSoft Lancets - OneTouch UltraSoft Lancets - 12:00:00 AM EDT active as directed eCW1 ([facility]) OneTouch UltraSoft Lancets - OneTouch UltraSoft Lancets - 12:00:00 AM EDT active OneTouch UltraSof t Lancets - eCW1 ([facility]) OneTouch UltraSoft Lancets - OneTouch UltraSoft Lancets - 12:00:00 AM EDT active OneTouch UltraSof t Lancets - eCW1 ([facility]) OneTouch UltraSoft Lancets - OneTouch UltraSoft Lancets - 12:00:00 AM EDT active OneTouch UltraSof t Lancets - eCW1 ([facility]) OneTouch Ultra Test - UNK 12/23/2019 12:00:00 AM EDT active OneTouch Ultra Test - eCW1 ([facility]) OneTouch Ultra Test - UNK 12/23/2019 12:00:00 AM EDT active OneTouch Ultra Test - eCW1 ([facility]) OneTouch UltraSoft Lancets - OneTouch UltraSoft Lancets - 12:00:00 AM EDT active OneTouch UltraSof t Lancets - eCW1 ([facility]) OneTouch Ultra Test - UNK 12/23/2019 12:00:00 AM EDT active OneTouch Ultra Test - eCW1 ([facility]) OneTouch UltraSoft Lancets - OneTouch UltraSoft Lancets - 12:00:00 AM EDT active OneTouch UltraSof t Lancets - eCW1 ([facility]) OneTouch Ultra Test - UNK 12/23/2019 12:00:00 AM EDT active OneTouch Ultra Test - eCW1 ([facility]) OneTouch UltraSoft Lancets - OneTouch UltraSoft Lancets - 12:00:00 AM EDT active OneTouch UltraSof t Lancets - eCW1 ([facility]) OneTouch Ultra Test - UNK 12/23/2019 12:00:00 AM EDT active OneTouch Ultra Test - eCW1 ([facility]) OneTouch UltraSoft Lancets - OneTouch UltraSoft Lancets - 12:00:00 AM EDT active OneTouch UltraSof t Lancets - eCW1 ([facility]) OneTouch Ultra Test - UNK 12/23/2019 12:00:00 AM EDT active OneTouch Ultra Test - eCW1 ([facility]) OneTouch Ultra Test - UNK 12/23/2019 12:00:00 AM EDT active as directed eCW1 ([facility]) OneTouch Ultra Test - UNK 12/23/2019 12:00:00 AM EDT active OneTouch Ultra Test - eCW1 ([facility]) OneTouch UltraSoft Lancets - OneTouch UltraSoft Lancets - 12:00:00 AM EDT active OneTouch UltraSof t Lancets - eCW1 ([facility]) OneTouch Ultra Test - UNK 12/23/2019 12:00:00 AM EDT active as directed eCW1 ([facility]) OneTouch Ultra Test - UNK 12/23/2019 12:00:00 AM EDT active OneTouch Ultra Test - eCW1 ([facility]) OneTouch UltraSoft Lancets - OneTouch UltraSoft Lancets - 12:00:00 AM EDT active OneTouch UltraSof t Lancets - eCW1 ([facility]) OneTouch Ultra Test - UNK 12/23/2019 12:00:00 AM EDT active OneTouch Ultra Test - eCW1 ([facility]) OneTouch Ultra Test - UNK 12/23/2019 12:00:00 AM EDT active OneTouch Ultra Test - eCW1 ([facility]) OneTouch UltraSoft Lancets - OneTouch UltraSoft Lancets - 12:00:00 AM EDT active OneTouch UltraSof t Lancets - eCW1 ([facility]) OneTouch UltraSoft Lancets - OneTouch UltraSoft Lancets - 12:00:00 AM EDT active OneTouch UltraSof t Lancets - eCW1 ([facility]) OneTouch Ultra Test - UNK 12/23/2019 12:00:00 AM EDT active OneTouch Ultra Test - eCW1 ([facility]) OneTouch Ultra Test - UNK 12/23/2019 12:00:00 AM EDT active OneTouch Ultra Test - eCW1 ([facility]) OneTouch UltraSoft Lancets - OneTouch UltraSoft Lancets - 12:00:00 AM EDT active OneTouch UltraSof t Lancets - eCW1 ([facility]) OneTouch Ultra Test - UNK 12/23/2019 12:00:00 AM EDT active OneTouch Ultra Test - eCW1 ([facility]) OneTouch UltraSoft Lancets - OneTouch UltraSoft Lancets - 12:00:00 AM EDT active OneTouch UltraSof t Lancets - eCW1 ([facility]) OneTouch Ultra Test - UNK 12/23/2019 12:00:00 AM EDT active OneTouch Ultra Test - eCW1 ([facility]) OneTouch Ultra Test - UNK 12/23/2019 12:00:00 AM EDT active as directed eCW1 ([facility]) OneTouch UltraSoft Lancets - OneTouch UltraSoft Lancets - 12:00:00 AM EDT active OneTouch UltraSof t Lancets - eCW1 ([facility]) OneTouch UltraSoft Lancets - OneTouch UltraSoft Lancets - 12:00:00 AM EDT active OneTouch UltraSof t Lancets - eCW1 ([facility]) OneTouch Ultra Test - UNK 12/23/2019 12:00:00 AM EDT active OneTouch Ultra Test - eCW1 ([facility]) OneTouch UltraSoft Lancets - OneTouch UltraSoft Lancets - 12:00:00 AM EDT active OneTouch UltraSof t Lancets - eCW1 ([facility]) OneTouch UltraSoft Lancets - OneTouch UltraSoft Lancets - 12:00:00 AM EDT active OneTouch UltraSof t Lancets - eCW1 ([facility]) OneTouch Ultra Test - UNK 12/23/2019 12:00:00 AM EDT active OneTouch Ultra Test - eCW1 ([facility]) OneTouch UltraSoft Lancets - OneTouch UltraSoft Lancets - 12:00:00 AM EDT active OneTouch UltraSof t Lancets - eCW1 ([facility]) 0.5 ML dulaglutide 1.5 MG/ML Auto-Injector [Trulicity] Trulicity 0.75 MG/0.5ML Trulicity 0.75 MG/0.5ML 11/20/2019 12:00:00 AM EST active 1 tab eCW1 ([facility]) 0.5 ML dulaglutide 1.5 MG/ML Auto-Injector [Trulicity] Trulicity 0.75 MG/0.5ML Trulicity 0.75 MG/0.5ML 11/20/2019 12:00:00 AM EST active 1 tab eCW1 ([facility]) POLYETHYLENE GLYCOL 3350 105 MG/ML / Pot assium Chloride 0.36592 MEQ/ML / Sodium Bicarbonate 0.017 MEQ/ML / Sodium Chloride 0.0479 MEQ/ML Oral Solution [TriLyte] Trilyte 11/04/2019 12:00:00 AM EST active MEDENT ([facility]) Magnesium Hydroxide 80 MG/ML Oral Suspension Milk Of Babs whatley 11/04/2019 12:00:00 AM EST ORAL active M EDENT ([facility] [place], ) Metamucil Fiber 11/04/2019 12:00:00 AM EST ac tive MEDENT ([facility], ) ciclopirox 80 MG/ML Topical Solution Ciclopirox 10/06/2019 12:00:00 A M EST active MEDENT ([facility] Chlorthalidone 25 MG Oral Tablet Chlorthalidone 25 MG 2019 12:00:00 AM EST 1.0 {tablet_in_the_morning_with_food} active Chlorthalidone 25 MG eCW1 ([facility]) Chlorthalidone 25 MG Oral Tablet Chlorthalidone 25 MG 2019 12:00:00 AM EST active 1 tablet in the m orning with food eCW1 ([facility]) Chlorthalidone 25 MG Oral Tablet Chlorthalidone 25 MG 2019 12:00:00 AM EST 1.0 {tablet_in_the_morning_with_food} active Chlorthalidone 25 MG eCW1 ([facility]) Chlorthalidone 25 MG Oral Tablet Chlorthalidone 25 MG 2019 12:00:00 AM EST 1.0 {tablet_in_the_morning_with_food} active Chlorthalidone 25 MG eCW1 ([facility]) Chlorthalidone 25 MG Oral Tablet Chlorthalidone 25 MG 2019 12:00:00 AM EST 1.0 {tablet_in_the_morning_with_food} active Chlorthalidone 25 MG eCW1 ([facility]) Chlorthalidone 25 MG Oral Tablet Chlorthalidone 25 MG 2019 12:00:00 AM EST 1.0 {tablet_in_the_morning_with_food} active Chlorthalidone 25 MG eCW1 ([facility]) Chlorthalidone 25 MG Oral Tablet Chlorthalidone 25 MG 2019 12:00:00 AM EST active 1 tablet in the m orning with food eCW1 ([facility]) Chlorthalidone 25 MG Oral Tablet Chlorthalidone 25 MG 2019 12:00:00 AM EST 1.0 {tablet_in_the_morning_with_food} active Chlorthalidone 25 MG eCW1 ([facility]) Chlorthalidone 25 MG Oral Tablet Chlorthalidone 25 MG 2019 12:00:00 AM EST 1.0 {tablet_in_the_morning_with_food} active Chlorthalidone 25 MG eCW1 ([facility]) Chlorthalidone 25 MG Oral Tablet Chlorthalidone 25 MG 2019 12:00:00 AM EST 1.0 {tablet_in_the_morning_with_food} active Chlorthalidone 25 MG eCW1 ([facility]) Chlorthalidone 25 MG Oral Tablet Chlorthalidone 25 MG 2019 12:00:00 AM EST 1.0 {tablet_in_the_morning_with_food} active Chlorthalidone 25 MG eCW1 ([facility]) Chlorthalidone 25 MG Oral Tablet Chlorthalidone 25 MG 2019 12:00:00 AM EST 1.0 {tablet_in_the_morning_with_food} active Chlorthalidone 25 MG eCW1 ([facility]) Chlorthalidone 25 MG UNK 09/30/2019 12:00:00 AM EST active 1 tablet in the morning with food eCW1 ([facility]) Chlorthalidone 25 MG Oral Tablet Chlorthalidone 25 MG 2019 12:00:00 AM EST active 1 tablet in the m orning with food eCW1 ([facility]) Chlorthalidone 25 MG Oral Tablet Chlorthalidone 25 MG 2019 12:00:00 AM EST 1.0 {tablet_in_the_morning_with_food} active Chlorthalidone 25 MG eCW1 ([facility]) Chlorthalidone 25 MG Oral Tablet Chlorthalidone 25 MG 2019 12:00:00 AM EST active 1 tablet in the m orning with food eCW1 ([facility]) Chlorthalidone 25 MG Oral Tablet Chlorthalidone 25 MG 2019 12:00:00 AM EST active 1 tablet in the m orning with food eCW1 ([facility]) Chlorthalidone 25 MG Oral Tablet Chlorthalidone 25 MG 2019 12:00:00 AM EST 1.0 {tablet_in_the_morning_with_food} active Chlorthalidone 25 MG eCW1 ([facility]) Chlorthalidone 25 MG Oral Tablet Chlorthalidone 25 MG 2019 12:00:00 AM EST 1.0 {tablet_in_the_morning_with_food} active Chlorthalidone 25 MG eCW1 ([facility]) Chlorthalidone 25 MG Oral Tablet Chlorthalidone 25 MG 2019 12:00:00 AM EST 1.0 {tablet_in_the_morning_with_food} active Chlorthalidone 25 MG eCW1 ([facility]) Chlorthalidone 25 MG Oral Tablet Chlorthalidone 25 MG 2019 12:00:00 AM EST 1.0 {tablet_in_the_morning_with_food} active Chlorthalidone 25 MG eCW1 ([facility]) Chlorthalidone 25 MG Oral Tablet Chlorthalidone 25 MG 2019 12:00:00 AM EST 1.0 {tablet_in_the_morning_with_food} active Chlorthalidone 25 MG eCW1 ([facility]) Chlorthalidone 25 MG Oral Tablet Chlorthalidone 25 MG 2019 12:00:00 AM EST active 1 tablet in the m orning with food eCW1 ([facility]) Chlorthalidone 25 MG Oral Tablet Chlorthalidone 25 MG 2019 12:00:00 AM EST active 1 tablet in the m orning with food eCW1 ([facility]) Chlorthalidone 25 MG Oral Tablet Chlorthalidone 25 MG 2019 12:00:00 AM EST 1.0 {tablet_in_the_morning_with_food} active Chlorthalidone 25 MG eCW1 ([facility]) Chlorthalidone 25 MG Oral Tablet Chlorthalidone 25 MG 2019 12:00:00 AM EST 1.0 {tablet_in_the_morning_with_food} active Chlorthalidone 25 MG eCW1 ([facility]) Chlorthalidone 25 MG Oral Tablet Chlorthalidone 25 MG 2019 12:00:00 AM EST 1.0 {tablet_in_the_morning_with_food} active Chlorthalidone 25 MG eCW1 ([facility]) Chlorthalidone 25 MG Oral Tablet Chlorthalidone 25 MG 2019 12:00:00 AM EST 1.0 {tablet_in_the_morning_with_food} active Chlorthalidone 25 MG eCW1 ([facility]) Losartan Potassium 25 MG Oral Tablet Losartan Potassium 25 M G 09/10/2019 12:00:00 AM EST 1.0 {tablet} active Lo sartan Potassium 25 MG eCW1 ([facility]) Losartan Potassium 25 MG Oral Tablet Losartan Potassium 25 M G 09/10/2019 12:00:00 AM EST active 1 tablet eCW1 ([facility]) Losartan Potassium 25 MG Oral Tablet Losartan Potassium 25 M G 09/10/2019 12:00:00 AM EST 1.0 {tablet} active Lo sartan Potassium 25 MG eCW1 ([facility]) Losartan Potassium 25 MG Oral Tablet Losartan Potassium 25 M G 09/10/2019 12:00:00 AM EST 1.0 {tablet} active Lo sartan Potassium 25 MG eCW1 ([facility]) Losartan Potassium 25 MG Oral Tablet Losartan Potassium 25 M G 09/10/2019 12:00:00 AM EST 1.0 {tablet} active Lo sartan Potassium 25 MG eCW1 ([facility]) Loperamide HCl 2 MG UNK 09/10/2019 12:00:00 AM EST active 1 capsule as needed eCW1 ([facility]) Losartan Potassium 25 MG Oral Tablet Losartan Potassium 25 M G 09/10/2019 12:00:00 AM EST 1.0 {tablet} active Lo sartan Potassium 25 MG eCW1 ([facility]) Losartan Potassium 25 MG Oral Tablet Losartan Potassium 25 M G 09/10/2019 12:00:00 AM EST 1.0 {tablet} active Lo sartan Potassium 25 MG eCW1 ([facility]) Losartan Potassium 25 MG Oral Tablet Losartan Potassium 25 M G 09/10/2019 12:00:00 AM EST 1.0 {tablet} active Lo sartan Potassium 25 MG eCW1 ([facility]) Losartan Potassium 25 MG Oral Tablet Losartan Potassium 25 M G 09/10/2019 12:00:00 AM EST active 1 tablet eCW1 ([facility]) Losartan Potassium 25 MG Oral Tablet Losartan Potassium 25 M G 09/10/2019 12:00:00 AM EST 1.0 {tablet} active Lo sartan Potassium 25 MG eCW1 ([facility]) Loperamide Hydrochloride 2 MG Oral Capsule Loperamide HCl 2 MG Loperamide HCl 2 MG 09/10/2019 12:00:00 AM EST active 1 capsule as needed eCW1 ([facility]) Losartan Potassium 25 MG Oral Tablet Losartan Potassium 25 M G 09/10/2019 12:00:00 AM EST 1.0 {tablet} active Lo sartan Potassium 25 MG eCW1 ([facility]) Losartan Potassium 25 MG Oral Tablet Losartan Potassium 25 M G 09/10/2019 12:00:00 AM EST 1.0 {tablet} active Lo sartan Potassium 25 MG eCW1 ([facility]) Losartan Potassium 25 MG Oral Tablet Losartan Potassium 25 M G 09/10/2019 12:00:00 AM EST 1.0 {tablet} active Lo sartan Potassium 25 MG eCW1 ([facility]) Losartan Potassium 25 MG Oral Tablet Losartan Potassium 25 M G 09/10/2019 12:00:00 AM EST active 1 tablet eCW1 ([facility]) Loperamide Hydrochloride 2 MG Oral Capsule Loperamide HCl 2 MG Loperamide HCl 2 MG 09/10/2019 12:00:00 AM EST active 1 capsule as needed eCW1 ([facility]) Losartan Potassium 25 MG Oral Tablet Losartan Potassium 25 M G 09/10/2019 12:00:00 AM EST 1.0 {tablet} active Lo sartan Potassium 25 MG eCW1 ([facility]) Losartan Potassium 25 MG Oral Tablet Losartan Potassium 25 M G 09/10/2019 12:00:00 AM EST 1.0 {tablet} active Lo sartan Potassium 25 MG eCW1 ([facility]) Losartan Potassium 25 MG Oral Tablet Losartan Potassium 25 M G 09/10/2019 12:00:00 AM EST 1.0 {tablet} active Lo sartan Potassium 25 MG eCW1 ([facility]) Losartan Potassium 25 MG Oral Tablet Losartan Potassium 25 M G 09/10/2019 12:00:00 AM EST active 1 tablet eCW1 ([facility]) Losartan Potassium 25 MG Oral Tablet Losartan Potassium 25 M G 09/10/2019 12:00:00 AM EST 1.0 {tablet} active Lo sartan Potassium 25 MG eCW1 ([facility]) Losartan Potassium 25 MG Oral Tablet Losartan Potassium 25 M G 09/10/2019 12:00:00 AM EST 1.0 {tablet} active Lo sartan Potassium 25 MG eCW1 ([facility]) Loperamide Hydrochloride 2 MG Oral Capsule Loperamide HCl 2 MG Loperamide HCl 2 MG 09/10/2019 12:00:00 AM EST active 1 capsule as needed eCW1 ([facility]) Losartan Potassium 25 MG Oral Tablet Losartan Potassium 25 M G 09/10/2019 12:00:00 AM EST 1.0 {tablet} active Lo sartan Potassium 25 MG eCW1 ([facility]) Losartan Potassium 25 MG Oral Tablet Losartan Potassium 25 M G 09/10/2019 12:00:00 AM EST active 1 tablet eCW1 ([facility]) Losartan Potassium 25 MG UNK 09/10/2019 12:00:00 AM EST active 1 tablet eCW1 ([facility]) Losartan Potassium 25 MG Oral Tablet Losartan Potassium 25 M G 09/10/2019 12:00:00 AM EST 1.0 {tablet} active Lo sartan Potassium 25 MG eCW1 ([facility]) Losartan Potassium 25 MG Oral Tablet Losartan Potassium 25 M G 09/10/2019 12:00:00 AM EST 1.0 {tablet} active Lo sartan Potassium 25 MG eCW1 ([facility]) Losartan Potassium 25 MG Oral Tablet Losartan Potassium 25 M G 09/10/2019 12:00:00 AM EST 1.0 {tablet} active Lo sartan Potassium 25 MG eCW1 ([facility]) Nebulizer - Nebulizer - 08/26/2019 12:00:00 AM EST active Nebulizer - eCW1 ([facility]) Umeclidinium Maidens 62.5 MCG/INH UNK 08/26/2019 12:00:00 AM EST 1.0 {puff} suspended Umeclidinium Maidens 62.5 MCG/INH eCW1 ([facility]) Albuterol 0.83 MG/ML Inhalant Solution Albuterol Sulfa te (2.5 MG/3ML) 0.083% Albuterol Sulfate (2.5 MG/3ML) 0.083% 08/26/2019 12:00:00 AM EST 3.0 {ml_as_needed} suspended Albuterol Sulfa te (2.5 MG/3ML) 0.083% eCW1 ([facility]) Levothyroxine Sodium 0.112 MG Oral Tablet Levothyroxin e Sodium 112 MCG Levothyroxine Sodium 112 MCG 08/26/2019 12:00:00 AM EST active 1 tablet in the morning on an empty stomach eCW1 ([facility]) Nebulizer - Nebulizer - 08/26/2019 12:00:00 AM EST suspended j44.9 as directed eCW1 ([facility]) Levothyroxine Sodium 0.112 MG Oral Tablet Levothyroxin e Sodium 112 MCG Levothyroxine Sodium 112 MCG 08/26/2019 12:00:00 AM EST suspended Levothyroxine Sodium 112 MCG eCW1 ([facility]) Levothyroxine Sodium 0.112 MG Oral Tablet Levothyroxin e Sodium 112 MCG Levothyroxine Sodium 112 MCG 08/26/2019 12:00:00 AM EST active 1 tablet in the morning on an empty stomach eCW1 ([facility]) Nebulizer - Nebulizer - 08/26/2019 12:00:00 AM EST active Nebulizer - eCW1 ([facility]) Nebulizer - Nebulizer - 08/26/2019 12:00:00 AM EST active Nebulizer - eCW1 ([facility]) Umeclidinium Maidens 62.5 MCG/INH UNK 08/26/2019 12:00:00 AM EST 1.0 {puff} suspended Umeclidinium Maidens 62.5 MCG/INH eCW1 ([facility]) Umeclidinium Maidens 62.5 MCG/INH UNK 08/26/2019 12:00:00 AM EST 1.0 {puff} suspended Umeclidinium Maidens 62.5 MCG/INH eCW1 ([facility]) Levothyroxine Sodium 0.112 MG Oral Tablet Levothyroxin e Sodium 112 MCG Levothyroxine Sodium 112 MCG 08/26/2019 12:00:00 AM EST suspended Levothyroxine Sodium 112 MCG eCW1 ([facility]) Albuterol 0.83 MG/ML Inhalant Solution Albuterol Sulfa te (2.5 MG/3ML) 0.083% Albuterol Sulfate (2.5 MG/3ML) 0.083% 08/26/2019 12:00:00 AM EST suspended 3 ml as needed eCW1 ([facility]) Albuterol 0.83 MG/ML Inhalant Solution Albuterol Sulfa te (2.5 MG/3ML) 0.083% Albuterol Sulfate (2.5 MG/3ML) 0.083% 08/26/2019 12:00:00 AM EST 3.0 {ml_as_needed} suspended Albuterol Sulfa te (2.5 MG/3ML) 0.083% eCW1 ([facility]) Nebulizer - Nebulizer - 08/26/2019 12:00:00 AM EST active Nebulizer - eCW1 ([facility]) Nebulizer - Nebulizer - 08/26/2019 12:00:00 AM EST active j44.9 as directed eCW1 ([facility]) Umeclidinium Maidens 62.5 MCG/INH UNK 08/26/2019 12:00:00 AM EST active 1 puff eCW1 ([facility]) Levothyroxine Sodium 0.112 MG Oral Tablet Levothyroxin e Sodium 112 MCG Levothyroxine Sodium 112 MCG 08/26/2019 12:00:00 AM EST suspended Levothyroxine Sodium 112 MCG eCW1 ([facility]) Levothyroxine Sodium 0.112 MG Oral Tablet Levothyroxin e Sodium 112 MCG Levothyroxine Sodium 112 MCG 08/26/2019 12:00:00 AM EST active Levothyroxine Sodium 112 MCG eCW1 ([facility]) Albuterol 0.83 MG/ML Inhalant Solution Albuterol Sulfa te (2.5 MG/3ML) 0.083% Albuterol Sulfate (2.5 MG/3ML) 0.083% 08/26/2019 12:00:00 AM EST active 3 ml as needed eCW1 ([facility]) Albuterol Sulfate (2.5 MG/3ML) 0.083% UNK 08/26/2019 12:00:00 AM EST active 3 ml as needed eCW1 ([facility]) Umeclidinium Maidens 62.5 MCG/INH UNK 08/26/2019 12:00:00 AM EST suspended 1 puff eCW1 ([facility]) Nebulizer - UNK 08/26/2019 12:00:00 AM EST active j44.9 as directed eCW1 ([facility]) Umeclidinium Maidens 62.5 MCG/INH UNK 08/26/2019 12:00:00 AM EST 1.0 {puff} suspended Umeclidinium Maidens 62.5 MCG/INH eCW1 ([facility]) Umeclidinium Maidens 62.5 MCG/INH UNK 08/26/2019 12:00:00 AM EST 1.0 {puff} suspended Umeclidinium Maidens 62.5 MCG/INH eCW1 ([facility]) Nebulizer - Nebulizer - 08/26/2019 12:00:00 AM EST active Nebulizer - eCW1 ([facility]) Nebulizer - Nebulizer - 08/26/2019 12:00:00 AM EST suspended j44.9 as directed eCW1 ([facility]) Albuterol 0.83 MG/ML Inhalant Solution Albuterol Sulfa te (2.5 MG/3ML) 0.083% Albuterol Sulfate (2.5 MG/3ML) 0.083% 08/26/2019 12:00:00 AM EST 3.0 {ml_as_needed} suspended Albuterol Sulfa te (2.5 MG/3ML) 0.083% eCW1 ([facility]) Nebulizer - Nebulizer - 08/26/2019 12:00:00 AM EST suspended j44.9 as directed eCW1 ([facility]) Levothyroxine Sodium 0.112 MG Oral Tablet Levothyroxin e Sodium 112 MCG Levothyroxine Sodium 112 MCG 08/26/2019 12:00:00 AM EST active Levothyroxine Sodium 112 MCG eCW1 ([facility]) Nebulizer - Nebulizer - 08/26/2019 12:00:00 AM EST active Nebulizer - eCW1 ([facility]) Levothyroxine Sodium 0.112 MG Oral Tablet Levothyroxin e Sodium 112 MCG Levothyroxine Sodium 112 MCG 08/26/2019 12:00:00 AM EST active 1 tablet in the morning on an empty stomach eCW1 ([facility]) Umeclidinium Maidens 62.5 MCG/INH UNK 08/26/2019 12:00:00 AM EST active 1 puff eCW1 ([facility]) Umeclidinium Maidens 62.5 MCG/INH UNK 08/26/2019 12:00:00 AM EST 1.0 {puff} suspended Umeclidinium Maidens 62.5 MCG/INH eCW1 ([facility]) Umeclidinium Maidens 62.5 MCG/INH UNK 08/26/2019 12:00:00 AM EST 1.0 {puff} suspended Umeclidinium Maidens 62.5 MCG/INH eCW1 ([facility]) Levothyroxine Sodium 0.112 MG Oral Tablet Levothyroxin e Sodium 112 MCG Levothyroxine Sodium 112 MCG 08/26/2019 12:00:00 AM EST active 1 tablet in the morning on an empty stomach eCW1 ([facility]) Nebulizer - Nebulizer - 08/26/2019 12:00:00 AM EST active Nebulizer - eCW1 ([facility]) Nebulizer - Nebulizer - 08/26/2019 12:00:00 AM EST active Nebulizer - eCW1 ([facility]) Umeclidinium Maidens 62.5 MCG/INH UNK 08/26/2019 12:00:00 AM EST 1.0 {puff} suspended Umeclidinium Maidens 62.5 MCG/INH eCW1 ([facility]) Levothyroxine Sodium 0.112 MG Oral Tablet Levothyroxin e Sodium 112 MCG Levothyroxine Sodium 112 MCG 08/26/2019 12:00:00 AM EST active Levothyroxine Sodium 112 MCG eCW1 ([facility]) Albuterol 0.83 MG/ML Inhalant Solution Albuterol Sulfa te (2.5 MG/3ML) 0.083% Albuterol Sulfate (2.5 MG/3ML) 0.083% 08/26/2019 12:00:00 AM EST suspended 3 ml as needed eCW1 ([facility]) Nebulizer - Nebulizer - 08/26/2019 12:00:00 AM EST active Nebulizer - eCW1 ([facility]) Albuterol 0.83 MG/ML Inhalant Solution Albuterol Sulfa te (2.5 MG/3ML) 0.083% Albuterol Sulfate (2.5 MG/3ML) 0.083% 08/26/2019 12:00:00 AM EST 3.0 {ml_as_needed} suspended Albuterol Sulfa te (2.5 MG/3ML) 0.083% eCW1 ([facility]) Albuterol 0.83 MG/ML Inhalant Solution Albuterol Sulfa te (2.5 MG/3ML) 0.083% Albuterol Sulfate (2.5 MG/3ML) 0.083% 08/26/2019 12:00:00 AM EST 3.0 {ml_as_needed} suspended Albuterol Sulfa te (2.5 MG/3ML) 0.083% eCW1 ([facility]) Nebulizer - Nebulizer - 08/26/2019 12:00:00 AM EST active Nebulizer - eCW1 ([facility]) Umeclidinium Maidens 62.5 MCG/INH UNK 08/26/2019 12:00:00 AM EST active 1 puff eCW1 ([facility]) Nebulizer - Nebulizer - 08/26/2019 12:00:00 AM EST active Nebulizer - eCW1 ([facility]) Nebulizer - Nebulizer - 08/26/2019 12:00:00 AM EST active Nebulizer - eCW1 ([facility]) Nebulizer - Nebulizer - 08/26/2019 12:00:00 AM EST active Nebulizer - eCW1 ([facility]) Levothyroxine Sodium 0.112 MG Oral Tablet Levothyroxin e Sodium 112 MCG Levothyroxine Sodium 112 MCG 08/26/2019 12:00:00 AM EST active Levothyroxine Sodium 112 MCG eCW1 ([facility]) Albuterol 0.83 MG/ML Inhalant Solution Albuterol Sulfa te (2.5 MG/3ML) 0.083% Albuterol Sulfate (2.5 MG/3ML) 0.083% 08/26/2019 12:00:00 AM EST 3.0 {ml_as_needed} suspended Albuterol Sulfa te (2.5 MG/3ML) 0.083% eCW1 ([facility]) Levothyroxine Sodium 0.112 MG Oral Tablet Levothyroxin e Sodium 112 MCG Levothyroxine Sodium 112 MCG 08/26/2019 12:00:00 AM EST active Levothyroxine Sodium 112 MCG eCW1 ([facility]) Nebulizer - Nebulizer - 08/26/2019 12:00:00 AM EST active j44.9 as directed eCW1 ([facility]) Umeclidinium Maidens 62.5 MCG/INH UNK 08/26/2019 12:00:00 AM EST suspended 1 puff eCW1 ([facility]) Albuterol 0.83 MG/ML Inhalant Solution Albuterol Sulfa te (2.5 MG/3ML) 0.083% Albuterol Sulfate (2.5 MG/3ML) 0.083% 08/26/2019 12:00:00 AM EST 3.0 {ml_as_needed} suspended Albuterol Sulfa te (2.5 MG/3ML) 0.083% eCW1 ([facility]) Albuterol 0.83 MG/ML Inhalant Solution Albuterol Sulfa te (2.5 MG/3ML) 0.083% Albuterol Sulfate (2.5 MG/3ML) 0.083% 08/26/2019 12:00:00 AM EST 3.0 {ml_as_needed} suspended Albuterol Sulfa te (2.5 MG/3ML) 0.083% eCW1 ([facility]) Albuterol 0.83 MG/ML Inhalant Solution Albuterol Sulfa te (2.5 MG/3ML) 0.083% Albuterol Sulfate (2.5 MG/3ML) 0.083% 08/26/2019 12:00:00 AM EST 3.0 {ml_as_needed} suspended Albuterol Sulfa te (2.5 MG/3ML) 0.083% eCW1 ([facility]) Umeclidinium Maidens 62.5 MCG/INH UNK 08/26/2019 12:00:00 AM EST suspended 1 puff eCW1 ([facility]) Nebulizer - Nebulizer - 08/26/2019 12:00:00 AM EST active Nebulizer - eCW1 ([facility]) Umeclidinium Maidens 62.5 MCG/INH UNK 08/26/2019 12:00:00 AM EST 1.0 {puff} suspended Umeclidinium Maidens 62.5 MCG/INH eCW1 ([facility]) Levothyroxine Sodium 0.112 MG Oral Tablet Levothyroxin e Sodium 112 MCG Levothyroxine Sodium 112 MCG 08/26/2019 12:00:00 AM EST active 1 tablet in the morning on an empty stomach eCW1 ([facility]) Levothyroxine Sodium 0.112 MG Oral Tablet Levothyroxin e Sodium 112 MCG Levothyroxine Sodium 112 MCG 08/26/2019 12:00:00 AM EST active 1 tablet in the morning on an empty stomach eCW1 ([facility]) Umeclidinium Maidens 62.5 MCG/INH UNK 08/26/2019 12:00:00 AM EST 1.0 {puff} suspended Umeclidinium Maidens 62.5 MCG/INH eCW1 ([facility]) Nebulizer - Nebulizer - 08/26/2019 12:00:00 AM EST active Nebulizer - eCW1 ([facility]) Albuterol 0.83 MG/ML Inhalant Solution Albuterol Sulfa te (2.5 MG/3ML) 0.083% Albuterol Sulfate (2.5 MG/3ML) 0.083% 08/26/2019 12:00:00 AM EST suspended 3 ml as needed eCW1 ([facility]) Levothyroxine Sodium 0.112 MG Oral Tablet Levothyroxin e Sodium 112 MCG Levothyroxine Sodium 112 MCG 08/26/2019 12:00:00 AM EST active 1 tablet in the morning on an empty stomach eCW1 ([facility]) Umeclidinium Maidens 62.5 MCG/INH UNK 08/26/2019 12:00:00 AM EST 1.0 {puff} suspended Umeclidinium Maidens 62.5 MCG/INH eCW1 ([facility]) Albuterol 0.83 MG/ML Inhalant Solution Albuterol Sulfa te (2.5 MG/3ML) 0.083% Albuterol Sulfate (2.5 MG/3ML) 0.083% 08/26/2019 12:00:00 AM EST 3.0 {ml_as_needed} suspended Albuterol Sulfa te (2.5 MG/3ML) 0.083% eCW1 ([facility]) Albuterol 0.83 MG/ML Inhalant Solution Albuterol Sulfa te (2.5 MG/3ML) 0.083% Albuterol Sulfate (2.5 MG/3ML) 0.083% 08/26/2019 12:00:00 AM EST active 3 ml as needed eCW1 ([facility]) Nebulizer - Nebulizer - 08/26/2019 12:00:00 AM EST active Nebulizer - eCW1 ([facility]) Umeclidinium Maidens 62.5 MCG/INH UNK 08/26/2019 12:00:00 AM EST active 1 puff eCW1 ([facility]) Umeclidinium Maidens 62.5 MCG/INH UNK 08/26/2019 12:00:00 AM EST 1.0 {puff} suspended Umeclidinium Maidens 62.5 MCG/INH eCW1 ([facility]) Nebulizer - Nebulizer - 08/26/2019 12:00:00 AM EST active Nebulizer - eCW1 ([facility]) Nebulizer - Nebulizer - 08/26/2019 12:00:00 AM EST active j44.9 as directed eCW1 ([facility]) Nebulizer - Nebulizer - 08/26/2019 12:00:00 AM EST active Nebulizer - eCW1 ([facility]) Nebulizer - Nebulizer - 08/26/2019 12:00:00 AM EST active Nebulizer - eCW1 ([facility]) Umeclidinium Maidens 62.5 MCG/INH UNK 08/26/2019 12:00:00 AM EST active 1 puff eCW1 ([facility]) Albuterol 0.83 MG/ML Inhalant Solution Albuterol Sulfa te (2.5 MG/3ML) 0.083% Albuterol Sulfate (2.5 MG/3ML) 0.083% 08/26/2019 12:00:00 AM EST 3.0 {ml_as_needed} suspended Albuterol Sulfa te (2.5 MG/3ML) 0.083% eCW1 ([facility]) Nebulizer - Nebulizer - 08/26/2019 12:00:00 AM EST active j44.9 as directed eCW1 ([facility]) Nebulizer - Nebulizer - 08/26/2019 12:00:00 AM EST active Nebulizer - eCW1 ([facility]) Nebulizer - Nebulizer - 08/26/2019 12:00:00 AM EST active j44.9 as directed eCW1 ([facility]) Albuterol 0.83 MG/ML Inhalant Solution Albuterol Sulfa te (2.5 MG/3ML) 0.083% Albuterol Sulfate (2.5 MG/3ML) 0.083% 08/26/2019 12:00:00 AM EST active 3 ml as needed eCW1 ([facility]) Levothyroxine Sodium 0.112 MG Oral Tablet Levothyroxin e Sodium 112 MCG Levothyroxine Sodium 112 MCG 08/26/2019 12:00:00 AM EST active Levothyroxine Sodium 112 MCG eCW1 ([facility]) Levothyroxine Sodium 112 MCG UNK 08/26/2019 12:00:00 AM EST active 1 tablet in the morning on an empty stomach eCW1 ([facility]) Levothyroxine Sodium 0.112 MG Oral Tablet Levothyroxin e Sodium 112 MCG Levothyroxine Sodium 112 MCG 08/26/2019 12:00:00 AM EST suspended Levothyroxine Sodium 112 MCG eCW1 ([facility]) Albuterol 0.83 MG/ML Inhalant Solution Albuterol Sulfa te (2.5 MG/3ML) 0.083% Albuterol Sulfate (2.5 MG/3ML) 0.083% 08/26/2019 12:00:00 AM EST 3.0 {ml_as_needed} suspended Albuterol Sulfa te (2.5 MG/3ML) 0.083% eCW1 ([facility]) Levothyroxine Sodium 0.112 MG Oral Tablet Levothyroxin e Sodium 112 MCG Levothyroxine Sodium 112 MCG 08/26/2019 12:00:00 AM EST active 1 tablet in the morning on an empty stomach eCW1 ([facility]) Levothyroxine Sodium 0.112 MG Oral Tablet Levothyroxin e Sodium 112 MCG Levothyroxine Sodium 112 MCG 08/26/2019 12:00:00 AM EST active Levothyroxine Sodium 112 MCG eCW1 ([facility]) Levothyroxine Sodium 0.112 MG Oral Tablet Levothyroxin e Sodium 112 MCG Levothyroxine Sodium 112 MCG 08/26/2019 12:00:00 AM EST active Levothyroxine Sodium 112 MCG eCW1 ([facility]) Albuterol 0.83 MG/ML Inhalant Solution Albuterol Sulfa te (2.5 MG/3ML) 0.083% Albuterol Sulfate (2.5 MG/3ML) 0.083% 08/26/2019 12:00:00 AM EST active 3 ml as needed eCW1 ([facility]) Insurance Providers Payer name Policy type / Coverage type Policy ID Covered libertarian ID Covered libertarian's relationship to cai Policy Cai Plan Information MEDICARE [id number] SP [id number] J23 [place] [id number] SP [id number] BLUE CROSS BLUE SHIELD -RECURRING [id number] 18 [id number] MEDICARE PART A -RECURRING [id number] 18 [id number] [place] 090/590 [id number] SP [id number] EXCELLUS BCBS B [id number] S [id number] MEDICARE C [id number] S [id number] J23 [place] 090/590 [id number] SP [id number] MEDICARE [id number] SP [id number] [id number] Problems, Conditions, and Diagnoses Code Display Name Description Problem Type Effective Dates Data Source(s) C44.91 [id number] Basal cell carcinoma (BCC), unspecified s ite Problem 09/22/2020 12:00:00 AM EST eCW1 ([facility]) N18.9 572103154 Chronic kidney disease, unspecified CKD s tage Problem 08/22/2020 12:00:00 AM EST eCW1 ([facility]) L40.8 [id number] Sebopsoriasis Problem 07/08/2020 12:00:00 AM EDT eCW1 ([facility]) E11.9 [id number] Type 2 diabetes darryl itus without complication, without long-term current use of insulin Problem 03/28/2020 12:00:00 AM EDT eCW1 ([facility]) [id number] Type 2 diabetes mellitus Type 2 diabetes mellitus Prob tash 02/03/2020 12:00:00 AM EDT MEDENT ([facility] ) [id number] Essential hypertension Essential hypertension Problem 02/03/2020 12:00:00 AM EDT MEDENT ([facility] ) [id number] Type 2 diabetes mellitus Type 2 diabetes mellitus Prob tash 02/03/2020 12:00:00 AM EDT MEDENT ([facility] ) G25.81 Restless legs Restless leg Problem 12/23/2019 12:00:00 AM EDT eCW1 ([facility]) G25.81 Restless legs Restless leg Problem 12/23/2019 12:00:00 AM EDT eCW1 ([facility]) F41.9 25715343 Anxiety Problem 11/19/2019 12:00:00 AM ES T eCW1 ([facility]) F41.9 01383355 Anxiety Problem 11/19/2019 12:00:00 AM ES T eCW1 ([facility]) Corns and callosities Corns and callosities Problem 10/17/2019 12:00:00 AM EST MEDENT ([facility] [id number] Onychomycosis Onychomycosis Problem 10/17/2019 12:00:00 AM EST MEDENT ([facility] 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 Problem 10/17/2019 12:00:00 AM EST MED ENT ([facility] [id number] Pronation Pronation Problem 10/17/2019 12:00:00 AM ES T MEDENT ([facility] H40.9 75028732 Glaucoma, unspecified glaucoma t ype, unspecified laterality Problem 09/30/2019 12:00:00 AM EST eCW1 ([facility]) H35.30 [id number] Macular degeneration, unspecifie d laterality, unspecified type Problem 09/30/2019 12:00:00 AM EST eCW1 ([facility]) H40.9 59134200 Glaucoma, unspecified glaucoma t ype, unspecified laterality Problem 09/30/2019 12:00:00 AM EST eCW1 ([facility]) H35.30 392731190 Macular degeneration, unspecifie d laterality, unspecified type Problem 09/30/2019 12:00:00 AM EST eCW1 ([facility]) G89.29 11962849 Other chronic pain Problem 09/10/2019 12:00: 00 AM EST eCW1 ([facility]) G89.29 88103660 Other chronic pain Problem 09/10/2019 12:00: 00 AM EST eCW1 ([facility]) N39.46 Mixed incontinence Mixed stress and urge urinary incon tinence Problem 09/02/2019 12:00:00 AM EST eCW1 ([facility]) N39.46 Mixed incontinence Mixed stress and urge urinary incon tinence Problem 09/02/2019 12:00:00 AM EST eCW1 ([facility]) N13.9 1930792 Urinary (tract) obstruction Problem 08/27/20 19 12:00:00 AM EST eCW1 ([facility]) Z85.51 622527312 History of bladder cancer Problem 08/27/2019 12:00:00 AM EST eCW1 ([facility]) Z85.51 284713924 History of bladder cancer Problem 08/27/2019 12:00:00 AM EST eCW1 ([facility]) N13.9 9262373 Urinary (tract) obstruction Problem 08/27/20 12:00:00 AM EST eCW1 ([facility]) E03.9 68273580 Hypothyroidism, unspecified type Problem 08/26/2019 12:00:00 AM EST eCW1 ([facility]) E03.9 01273458 Hypothyroidism, unspecified type Problem 08/26/2019 12:00:00 AM EST eCW1 ([facility]) E85707 Other spondylosis, lumbar region Other spondylos is, lumbar region Diagnosis 08/30/2020 01:42:00 PM [facility] 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, lumbar region Other intervertebral disc degeneration, lumbar region Diagnosis 08/30/2020 01:42:00 PM [facility] Surgeries/Procedures Procedure Description Date Indications Data Source(s) PARING/CUTTING BENIGN HYPERKERATOTIC LESION 1 08/29/20 20 12:00:00 AM EST MEDENT ([facility] DEBRIDEMENT NAIL ANY METHOD 6/> 08/29/2020 12:00:00 AM EST MEDENT ([facility] Immunization: Flublok Quadrivalent (18 years & older) 0.5mL IM (Influenza) 08/22/2020 12:00:00 AM EST eCW1 ([facility]) PARING/CUTTING BENIGN HYPERKERATOTIC LESION 2-4 2019 12:00:00 AM EDT MEDENT ([facility] DEBRIDEMENT NAIL ANY METHOD 6/> 04/25/2020 12:00:00 AM EDT MEDENT ([facility] RADEX SPINE CRV COMPL W/OBLQ&FLEX&/XTN STDS 02/02/2020 12:00:00 AM EDT MEDENT ([facility]) X-Ray Spine Lumbosacral Complete Inc Bending Views Min Of 6 02/02/2020 12:00:00 AM EDT MEDENT ([facility]) PHYSICIAN TELEPHONE EVALUATION 11-20 MIN 12/23/2019 12 :00:00 AM EDT eCW1 ([facility]) Office Visit, Est Pt., Level 2 FC 11/19/2019 12:00:00 AM EST eCW1 ([facility]) Office Visit, Est Pt., Level 4 PC 11/19/2019 12:00:00 AM EST eCW1 ([facility]) Medicare, Tricare, [place], PC-INTERPRETATION AND REPORT 10/20/2019 12:00:00 AM EST eCW1 ([facility]) Medicare, Tricare, [place], FC-ELECTROCARDIOGRAM, TRACING ON LY 10/20/2019 12:00:00 AM EST eCW1 ([facility]) CYSTOSCOPY 10/14/2019 12:00:00 AM EST e CW1 ([facility]) Results ID Date Data Source [id number] 06/23/2020 12:00:00 AM EDT eCW1 ([facility]) Name Value Range Interpretation Code Description Data Nuria rce(s) Supporting Document(s) MICROALBUMIN RANDOM eCW1 ([facility]) UR MICROALBUMIN eCW1 ([facility]) CREATININE URINE eCW1 ([facility]) ABELARDO/CREAT RATIO eCW1 ([facility]) ID Date Data Source CREATININE,RANDOM URINE 06/23/2020 12:00:00 AM EDT eCW1 ([facility]) Name Value Range Interpretation Code Description Data Nuria rce(s) Supporting Document(s) CREATININE,RANDOM URINE eCW1 ( [facility]) ID Date Data Source TSH 06/23/2020 12:00:00 AM EDT eCW1 ([facility]) Name Value Range Interpretation Code Description Data Nuria rce(s) Supporting Document(s) 6.440 0.358-3.740 THYROID STIMULATING HORM ONE eCW1 ([facility]) ID Date Data Source LIPID PANEL (CARDIAC RISK) 06/23/2020 12:00:00 AM EDT eCW1 ( [facility]) Name Value Range Interpretation Code Description Data Nuria rce(s) Supporting Document(s) 113 NON-HDL-C eCW1 ([facility]) Cholesterol in HDL [Moles/volume] in Serum or Plasma 59 >40 HDL CHOLESTEROL eCW1 ([facility]) Cholesterol in LDL [Mass/volume] in Serum or Plasma by calculation 99 <100 LDL CHOLESTEROL eCW1 ([facility]) Triglyceride [Mass/volume] in Serum or Plasma by calculation 69 <150 TRIGLYCERIDES LEVEL eCW1 ([facility]) Cholesterol [Moles/volume] in Serum or Plasma 172 <200 CHOLESTEROL LEVEL eCW1 ([facility]) 2.915 <5 CHOLESTEROL RISK RATIO eCW1 ([facility]) ID Date Data Source [id number] 06/23/2020 12:00:00 AM EDT eCW1 ([facility]) Name Value Range Interpretation Code Description Data Nuria rce(s) Supporting Document(s) Hemoglobin A1c/Hemoglobin.total in Blood 7.4 HEMOGLOBIN A1c eCW1 ([facility]) ID Date Data Source CBC with Differential 06/23/2020 12:00:00 AM EDT eCW1 ([facility]) Name Value Range Interpretation Code Description Data Nuria rce(s) Supporting Document(s) 4.49 4.00-5.40 RED BLOOD COUNT eCW1 ([facility]) 10.8 4.0-10.0 WHITE BLOOD COUNT eCW1 ([facility]) 13.0 12.0-15.5 HEMOGLOBIN eCW1 ([facility]) 44.3 36.0-47.0 HEMATOCRIT eCW1 ([facility]) 15.0 11.5-14.5 RED CELL DISTRIBUTION WID TH eCW1 ([facility]) 98.7 80.0-96.0 MEAN CORPUSCULAR VOLUME e CW1 ([facility]) 29.3 32.0-36.5 MEAN CORPUSCULAR HGB CONC eCW1 ([facility]) 29.0 27.0-33.0 MEAN CORPUSCULAR HEMOGLOB IN eCW1 ([facility]) 5.9 0.0-5.0 MONO % eCW1 ([facility]) 66.9 36.0-66.0 NEUTROPHILS % eCW1 ([facility]) 23.2 24.0-44.0 LYMPH % eCW1 ([facility]) 181 150-450 PLATELET COUNT, AUTOMATED eCW1 ([facility]) 7.2 1.5-8.5 NEUTROPHILS # eCW1 ([facility]) 0.5 0.0-1.0 BASO % eCW1 ([facility]) 3.0 0.0-3.0 EOS % eCW1 ([facility]) 2.5 1.5-5.0 LYMPH # eCW1 ([facility]) 0.1 0.0-0.2 BASO # eCW1 ([facility]) 0.6 0.0-0.8 MONO # eCW1 ([facility]) 0.3 0.0-0.5 EOS # eCW1 ([facility]) ID Date Data Source Basic Metabolic Profile (BMP) 06/23/2020 12:00:00 AM EDT eCW 1 ([facility]) Name Value Range Interpretation Code Description Data Nuria rce(s) Supporting Document(s) 89 70-100 GLUCOSE, FASTING eCW1 ([facility]) 35.8 >39 GLOMERULAR FILTRATION RATE eCW 1 ([facility]) 141 136-145 SODIUM LEVEL eCW1 ([facility]) 1.50 0.55-1.30 CREATININE FOR GFR eCW1 ([facility]) 29 7-18 BLOOD UREA NITROGEN eCW1 ([facility]) 101 98-107 CHLORIDE LEVEL eCW1 ([facility]) 4.4 3.5-5.1 POTASSIUM SERUM eCW1 ([facility]) 36 21-32 CARBON DIOXIDE LEVEL eCW1 ([facility]) 8.4 8.8-10.2 CALCIUM LEVEL eCW1 ([facility]) ID Date Data Source [id number] 06/07/2020 12:00:00 AM EDT [facility] Wu Craig MD Patient Name: DANIELA SAXENA [id number] [facility] Date of : 1940[place] [address] Date of Exam: 06/07/2020#: Fax: [phone] EXAM: MRI LUMBAR SPINE WITHOUT CONTRASTCLINICAL INFORMATION: Spondylosis in the lumbar region. Low back pain. COMPARISON: MRI study from 04/29/2020.TECHNIQUE:3T multiplanar MRI imaging of the lumbar spine was obtained using varioussequences.MRI FINDINGS:There is a wedge compression fracture deformity again noted at the [id number] body level, unchanged. There is approximately 40% [...] deformity at L1, also unchanged.Accredited by the [employer] in MR.IZZY Meeks/jmcThank you for referring DANIELA SAXENA to our office. Electronically Signed - ANNALEE VICKERS MD 06/09/20 16:20 Name Value Range Interpretation Code Description Data Nuria rce(s) Supporting Document(s) ID Date Data Source [id number] 04/29/2020 12:00:00 AM EDT [facility] Wu Craig MD Patient Name: KENISHA SAXENA [facility] 1940[facility] [address] Date of Exam: 04/29/2020#: Fax: [phone] EXAM: [...] Disease Comprehensive 09/10/2019 12:00:00 AM EST eCW1 ([facility]) Name Value Range Interpretation Code Description Data Nuria rce(s) Supporting Document(s) Gliadin IgA Ab [Units/volume] in Serum by Immunoassay 6 0-19 DEAMIDATED GLIADIN ABS, IgA eCW1 ([facility]) Gliadin IgG Ab [Units/volume] in Serum by Immunoassay 3 0-19 DEAMIDATED GLIADIN ABS, IgG eCW1 ([facility]) Tissue transglutaminase IgA Ab [Units/volume] in Serum <2 0-3 t- TRANSGLUTAMINASE(tTG) IgA eCW1 ([facility]) Endomysium IgA Ab [Presence] in Serum Negative Negative ENDOMYSIAL ANTIBODY IgA eCW1 ([facility]) IgA [Mass/volume] in Serum or Plasma 268 64-422 IMMUNOGLOBULIN A eCW1 ([facility]) Tissue transglutaminase IgG Ab [Units/volume] in Serum <2 0-5 t- TRANSGLUTAMINASE(tTG) IgG eCW1 ([facility]) ID Date Data Source NON PERSONAL COUNSELOR CYTOLOGY REQ FOR SERVI 09/02/2019 12:00:00 AM EST eC W1 ([facility]) Name Value Range Interpretation Code Description Data Nuria rce(s) Supporting Document(s) URINE eCW1 ([facility]) Procedure Social History Code Duration Value Status Description Data Source(s ) Smoking 08/22/2020 12:00:00 AM EST Current Smoker completed Curre nt Smoker eCW1 ([facility]) Smoking 08/22/2020 12:00:00 AM EST Current Smoker completed Curre nt Smoker eCW1 ([facility]) Smoking 08/22/2020 12:00:00 AM EST Current Smoker completed Curre nt Smoker eCW1 ([facility]) Smoking 08/22/2020 12:00:00 AM EST Current Smoker completed Curre nt Smoker eCW1 ([facility]) Smoking 08/22/2020 12:00:00 AM EST Current Smoker completed Curre nt Smoker eCW1 ([facility]) Smoking 08/22/2020 12:00:00 AM EST Current Smoker completed Curre nt Smoker eCW1 ([facility]) Smoking 08/22/2020 12:00:00 AM EST Current Smoker completed Curre nt Smoker eCW1 ([facility]) Smoking 08/22/2020 12:00:00 AM EST Current Smoker completed Curre nt Smoker eCW1 ([facility]) Smoking 07/08/2020 12:00:00 AM EDT Current Smoker completed Curre nt Smoker eCW1 ([facility]) Smoking 07/08/2020 12:00:00 AM EDT Current Smoker completed Curre nt Smoker eCW1 ([facility]) Smoking 07/08/2020 12:00:00 AM EDT Current Smoker completed Curre nt Smoker eCW1 ([facility]) Smoking 07/08/2020 12:00:00 AM EDT Current Smoker completed Curre nt Smoker eCW1 ([facility]) Smoking 06/15/2020 12:00:00 AM EDT Former Smoker completed Former Smoker eCW1 ([facility]) Smoking 06/15/2020 12:00:00 AM EDT Former Smoker completed Former Smoker eCW1 ([facility]) Smoking 06/15/2020 12:00:00 AM EDT Former Smoker completed Former Smoker eCW1 ([facility]) Smoking 06/15/2020 12:00:00 AM EDT Former Smoker completed Former Smoker eCW1 ([facility]) Smoking 03/28/2020 12:00:00 AM EDT Former Smoker completed Former Smoker eCW1 ([facility]) Smoking 03/28/2020 12:00:00 AM EDT Former Smoker completed Former Smoker eCW1 ([facility]) Smoking 02/12/2020 12:00:00 AM EDT Former Smoker completed Former Smoker eCW1 ([facility]) Vital Signs ID Date Data Source UNK Name Value Range Interpretation Code Description Data Source(s) Diastolic blood pressure 77 mm[Hg] 77 mm[Hg] eCW1 ([facility]) Systolic blood pressure 142 mm[Hg] 142 mm[Hg] e CW1 ([facility]) Body temperature 97.8 [degF] 97.8 [degF] eCW1 ( [facility]) Respiratory rate 18 /min 18 /min eCW1 ([facility]) Heart rate 72 /min 72 /min eCW1 ([facility]) Body mass index (BMI) [Ratio] 37.64 kg/m2 37.64 kg/m2 W1 ([facility]) Body height 60.5 [in_i] 60.5 [in_i] eCW1 ([facility]) Body weight 196 [lb_av] 196 [lb_av] eCW1 ([facility]) Diastolic blood pressure 76 mm[Hg] 76 mm[Hg] eCW1 ([facility]) Systolic blood pressure 122 mm[Hg] 122 mm[Hg] e CW1 ([facility]) Body mass index (BMI) [Ratio] 38.80 kg/m2 38.80 kg/m2 eCW1 ([facility]) Body height 60.5 [in_i] 60.5 [in_i] eCW1 ([facility]) Body weight 202.0 [lb_av] 202.0 [lb_av] eCW1 ([facility]) Diastolic blood pressure 73 mm[Hg] 73 mm[Hg] eCW1 ([facility]) Systolic blood pressure 127 mm[Hg] 127 mm[Hg] e CW1 ([facility]) Body temperature 96.9 [degF] 96.9 [degF] eCW1 ( [facility]) Respiratory rate 18 /min 18 /min eCW1 ([facility]) Heart rate 73 /min 73 /min eCW1 ([facility]) Body mass index (BMI) [Ratio] 38.60 kg/m2 38.60 kg/m2 eCW1 ([facility]) Body height 60.5 [in_i] 60.5 [in_i] eCW1 ([facility]) Body weight 201 [lb_av] 201 [lb_av] eCW1 ([facility]) Body mass index (BMI) [Ratio] 39.1 kg/m2 [...] blood pressure 78 mm[Hg] 78 mm[Hg] eCW1 ([facility]) Systolic blood pressure 137 mm[Hg] 137 mm[Hg] e CW1 ([facility]) Body temperature 96.9 [degF] 96.9 [degF] eCW1 ( [facility]) Respiratory rate 18 /min 18 /min eCW1 ([facility]) Heart rate 65 /min 65 /min eCW1 ([facility]) Body mass index (BMI) [Ratio] 37.84 kg/m2 37.84 kg/m2 eCW1 ([facility]) Body height 60.5 [in_i] 60.5 [in_i] eCW1 ([facility]) Body weight 197 [lb_av] 197 [lb_av] eCW1 ([facility]) Diastolic blood pressure 70 mm[Hg] 70 mm[Hg] eCW1 ([facility]) Systolic blood pressure 121 mm[Hg] 121 mm[Hg] e CW1 ([facility]) Body temperature 100.1 [degF] 100.1 [degF] eCW1 ([facility]) Respiratory rate 18 /min 18 /min eCW1 ([facility]) Heart rate 68 /min 68 /min eCW1 ([facility]) Body mass index (BMI) [Ratio] 38.03 kg/m2 38.03 kg/m2 eCW1 ([facility]) Body height 60.5 [in_i] 60.5 [in_i] eCW1 ([facility]) Body weight 198 [lb_av] 198 [lb_av] eCW1 ([facility]) Body mass index (BMI) [Ratio] 39.8 kg/m2 39.8 k g/m2 MEDENT ([facility]) Body weight 195.38 [lb_av] 195.38 [lb_av] MEDEN T ([facility] ) Body height 58.75 [in_i] 58.75 [in_i] MEDENT ([facility] ) 4'10.75" Diastolic blood pressure 57 mm[Hg] 57 mm[Hg] eCW1 ([facility]) Systolic blood pressure 130 mm[Hg] 130 mm[Hg] e CW1 ([facility]) Body temperature 98.7 [degF] 98.7 [degF] eCW1 ( [facility]) Respiratory rate 16 /min 16 /min eCW1 ([facility]) Heart rate 70 /min 70 /min eCW1 ([facility]) Body mass index (BMI) [Ratio] 38.22 kg/m2 38.22 kg/m2 W1 ([facility]) Body height 60.5 [in_us] 60.5 [in_us] eCW1 ([facility]) Body weight Measured 199 [lb_av] 199 [lb_av] eC W1 ([facility]) Body weight 89.813 kg 89.813 kg MEDENT ([facility], ) Body mass index (BMI) [Ratio] 36.2 kg/m2 36.2 k g/m2 MEDENT ([facility] ) Body weight 198.00 [lb_av] 198.00 [lb_av] MEDEN T ([facility], ) Body height 62 [in_i] 62 [in_i] MEDENT ([facility], ) 5'2" Diastolic blood pressure 58 mm[Hg] 58 mm[Hg] MEDENT ([facility], ) Systolic blood pressure 98 mm[Hg] 98 mm[Hg] M EDENT ([facility], ) Diastolic blood pressure 62 mm[Hg] 62 mm[Hg] eCW1 ([facility]) Systolic blood pressure 134 mm[Hg] 134 mm[Hg] e CW1 ([facility]) Body temperature 97.9 [degF] 97.9 [degF] eCW1 ( [facility]) Respiratory rate 17 /min 17 /min eCW1 ([facility], [facility]) Heart rate 79 /min 79 /min eCW1 ([facility]) Body mass index (BMI) [Ratio] 37.87 kg/m2 37.87 kg/m2 eCW1 ([facility]) Body height 60.5 [in_us] 60.5 [in_us] eCW1 ([facility]) Body weight Measured 197.2 [lb_av] 197.2 [lb_av ] eCW1 ([facility]) Diastolic blood pressure 64 mm[Hg] 64 mm[Hg] eCW1 ([facility]) Systolic blood pressure 118 mm[Hg] 118 mm[Hg] e CW1 ([facility]) Body temperature 96.6 [degF] 96.6 [degF] eCW1 ( [facility]) Respiratory rate 18 /min 18 /min eCW1 ([facility]) Heart rate 82 /min 82 /min eCW1 ([facility]) Body mass index (BMI) [Ratio] 37.15 kg/m2 37.15 kg/m2 eCW1 ([facility]) Body height 60.5 [in_us] 60.5 [in_us] eCW1 ([facility]) Body weight Measured 193.4 [lb_av] 193.4 [lb_av ] eCW1 ([facility]) Diastolic blood pressure 60 mm[Hg] 60 mm[Hg] [...] blood pressure 74 mm[Hg] 74 mm[Hg] eCW1 ([facility]) Systolic blood pressure 173 mm[Hg] 173 mm[Hg] e CW1 ([facility]) Body temperature 98.1 [degF] 98.1 [degF] eCW1 ( [facility]) Respiratory rate 18 /min 18 /min eCW1 ([facility]) Heart rate 65 /min 65 /min eCW1 ([facility]) Body mass index (BMI) [Ratio] 37.91 kg/m2 37.91 kg/m2 W1 ([facility]) Body height 60.5 [in_us] 60.5 [in_us] eCW1 ([facility]) Body weight Measured 197.4 [lb_av] 197.4 [lb_av ] eCW1 ([facility]) Diastolic blood pressure 51 mm[Hg] 51 mm[Hg] eCW1 ([facility]) Systolic blood pressure 103 mm[Hg] 103 mm[Hg] e CW1 ([facility]) Body temperature 97.5 [degF] 97.5 [degF] eCW1 ( [facility]) Respiratory rate 18 /min 18 /min eCW1 ([facility]) Heart rate 68 /min 68 /min eCW1 ([facility]) Body mass index (BMI) [Ratio] 37.07 kg/m2 37.07 kg/m2 eCW1 ([facility]) Body height 60.5 [in_us] 60.5 [in_us] eCW1 ([facility]) Body weight Measured [lb_av] eCW1 ([facility]) Diastolic blood pressure 68 mm[Hg] 68 mm[Hg] eCW1 ([facility]) Systolic blood pressure 136 mm[Hg] 136 mm[Hg] e CW1 ([facility]) Body temperature 96.0 [degF] 96.0 [degF] eCW1 ( [facility]) Respiratory rate 18 /min 18 /min eCW1 ([facility]) Heart rate 72 /min 72 /min eCW1 ([facility]) Body mass index (BMI) [Ratio] 37.76 kg/m2 37.76 kg/m2 eCW1 ([facility]) Body height 60.5 [in_us] 60.5 [in_us] eCW1 ([facility]) Body weight Measured 196.6 [lb_av] 196.6 [lb_av ] eCW1 ([facility]) Diastolic blood pressure 86 mm[Hg] 86 mm[Hg] eCW1 ([facility]) Systolic blood pressure 193 mm[Hg] 193 mm[Hg] e CW1 ([facility]) Body temperature 96.1 [degF] 96.1 [degF] eCW1 ( [facility]) Respiratory rate 17 /min 17 /min eCW1 ([facility]) Heart rate 77 /min 77 /min eCW1 ([facility]) Body mass index (BMI) [Ratio] 37.41 kg/m2 37.41 kg/m2 eCW1 ([facility]) Body height 60.5 [in_us] 60.5 [in_us] eCW1 ([facility]) Body weight Measured 194.8 [lb_av] 194.8 [lb_av ] eCW1 ([facility]) Patient Treatment Plan of Care Planned Activity Planned Date Details Description Data Source (s) FreeStyle Vero 14 Day Sensor - 09/19/2020 12:00:00 AM EST eCW1 ([facility]) FreeStyle Vero 14 Day Sensor - 09/19/2020 12:00:00 AM EST eCW1 ([facility]) FreeStyle Vero 14 Day Sensor - 09/19/2020 12:00:00 AM EST eCW1 ([facility]) Alprazolam 1 MG Oral Tablet [Xanax] 08/22/2020 12:00:00 AM EST eCW1 ([facility]) Alprazolam 1 MG Oral Tablet [Xanax] 08/22/2020 12:00:00 AM EST eCW1 ([facility]) Alprazolam 1 MG Oral Tablet [Xanax] 08/22/2020 12:00:00 AM EST eCW1 ([facility]) Alprazolam 1 MG Oral Tablet [Xanax] 08/22/2020 12:00:00 AM EST eCW1 ([facility]) Alprazolam 1 MG Oral Tablet [Xanax] 08/22/2020 12:00:00 AM EST eCW1 ([facility]) Alprazolam 1 MG Oral Tablet [Xanax] 08/22/2020 12:00:00 AM EST eCW1 ([facility]) Alprazolam 1 MG Oral Tablet [Xanax] 08/22/2020 12:00:00 AM EST eCW1 ([facility]) Alprazolam 1 MG Oral Tablet [Xanax] 08/22/2020 12:00:00 AM EST eCW1 ([facility]) Levothyroxine Sodium 0.125 MG Oral Tablet 06/27/2020 12:00:00 AM ED T eCW1 ([facility]) Levothyroxine Sodium 0.125 MG Oral Tablet 06/27/2020 12:00:00 AM ED T eCW1 ([facility]) Levothyroxine Sodium 0.125 MG Oral Tablet 06/27/2020 12:00:00 AM ED T eCW1 ([facility]) Levothyroxine Sodium 0.125 MG Oral Tablet 06/27/2020 12:00:00 AM ED T eCW1 ([facility]) Levothyroxine Sodium 0.125 MG Oral Tablet 06/27/2020 12:00:00 AM ED T eCW1 ([facility]) Levothyroxine Sodium 0.125 MG Oral Tablet 06/27/2020 12:00:00 AM ED T eCW1 ([facility]) Levothyroxine Sodium 0.125 MG Oral Tablet 06/27/2020 12:00:00 AM ED T eCW1 ([facility]) Levothyroxine Sodium 0.125 MG Oral Tablet 06/27/2020 12:00:00 AM ED T eCW1 ([facility]) Levothyroxine Sodium 0.125 MG Oral Tablet 06/27/2020 12:00:00 AM ED T eCW1 ([facility]) Levothyroxine Sodium 0.125 MG Oral Tablet 06/27/2020 12:00:00 AM ED T eCW1 ([facility]) Levothyroxine Sodium 0.125 MG Oral Tablet 06/27/2020 12:00:00 AM ED T eCW1 ([facility]) FreeStyle [place] - 06/15/2020 12:00:00 AM EDT eCW1 ([facility]) FreeStyle [place] - 06/15/2020 12:00:00 AM EDT eCW1 ([facility]) FreeStyle [place] - 06/15/2020 12:00:00 AM EDT eCW1 ([facility]) FreeStyle [place] - 06/15/2020 12:00:00 AM EDT eCW1 ([facility]) gabapentin 100 MG Oral Capsule 03/28/2020 12:00:00 AM EDT eCW1 ([facility]) gabapentin 100 MG Oral Capsule 03/28/2020 12:00:00 AM EDT eCW1 ([facility]) OneTouch Ultra Test - 12/23/2019 12:00:00 AM EDT eCW1 ([facility]) OneTouch UltraSoft Lancets - 12/23/2019 12:00:00 AM EDT eCW1 ([facility]) OneTouch Ultra Test - 12/23/2019 12:00:00 AM EDT eCW1 ([facility]) OneTouch Ultra Test - 12/23/2019 12:00:00 AM EDT eCW1 ([facility]) 0.5 ML dulaglutide 1.5 MG/ML Auto-Injector [Trulicity] 11/20/2019 12:00:00 AM EST eCW1 ([facility]) Chlorthalidone 25 MG Oral Tablet 09/30/2019 12:00:00 AM EST eCW1 ([facility]) Chlorthalidone 25 MG Oral Tablet 09/30/2019 12:00:00 AM EST eCW1 ([facility]) Chlorthalidone 25 MG Oral Tablet 09/30/2019 12:00:00 AM EST eCW1 ([facility]) Chlorthalidone 25 MG Oral Tablet 09/30/2019 12:00:00 AM EST eCW1 ([facility]) Chlorthalidone 25 MG Oral Tablet 09/30/2019 12:00:00 AM EST eCW1 ([facility]) Chlorthalidone 25 MG Oral Tablet 09/30/2019 12:00:00 AM EST eCW1 ([facility]) Chlorthalidone 25 MG Oral Tablet 09/30/2019 12:00:00 AM EST eCW1 ([facility]) Chlorthalidone 25 MG Oral Tablet 09/30/2019 12:00:00 AM EST eCW1 ([facility]) Chlorthalidone 25 MG Oral Tablet 09/30/2019 12:00:00 AM EST eCW1 ([facility]) Chlorthalidone 25 MG Oral Tablet 09/30/2019 12:00:00 AM EST eCW1 ([facility]) Chlorthalidone 25 MG Oral Tablet 09/30/2019 12:00:00 AM EST eCW1 ([facility]) Chlorthalidone 25 MG 09/30/2019 12:00:00 AM EST eCW1 ([facility]) Losartan Potassium 25 MG Oral Tablet 09/10/2019 12:00:00 AM EST eCW1 ([facility]) Losartan Potassium 25 MG Oral Tablet 09/10/2019 12:00:00 AM EST eCW1 ([facility]) Losartan Potassium 25 MG Oral Tablet 09/10/2019 12:00:00 AM EST eCW1 ([facility]) Losartan Potassium 25 MG Oral Tablet 09/10/2019 12:00:00 AM EST eCW1 ([facility]) Losartan Potassium 25 MG Oral Tablet 09/10/2019 12:00:00 AM EST eCW1 ([facility]) Losartan Potassium 25 MG Oral Tablet 09/10/2019 12:00:00 AM EST eCW1 ([facility]) Losartan Potassium 25 MG Oral Tablet 09/10/2019 12:00:00 AM EST eCW1 ([facility]) Losartan Potassium 25 MG Oral Tablet 09/10/2019 12:00:00 AM EST eCW1 ([facility]) Losartan Potassium 25 MG 09/10/2019 12:00:00 AM EST eCW1 ([facility]) Loperamide Hydrochloride 2 MG Oral Capsule 09/10/2019 12:00:[address] eCW1 ([facility]) Losartan Potassium 25 MG Oral Tablet 09/10/2019 12:00:00 AM EST eCW1 ([facility]) Levothyroxine Sodium 0.112 MG Oral Tablet 08/26/2019 12:00:00 AM ES T eCW1 ([facility]) Levothyroxine Sodium 0.112 MG Oral Tablet 08/26/2019 12:00:00 AM ES T eCW1 ([facility]) Levothyroxine Sodium 0.112 MG Oral Tablet 08/26/2019 12:00:00 AM ES T eCW1 ([facility]) Nebulizer - 08/26/2019 12:00:00 AM EST e CW1 ([facility]) Levothyroxine Sodium 0.112 MG Oral Tablet 08/26/2019 12:00:00 AM ES T eCW1 ([facility]) Nebulizer - 08/26/2019 12:00:00 AM EST e CW1 ([facility]) Levothyroxine Sodium 0.112 MG Oral Tablet 08/26/2019 12:00:00 AM ES T eCW1 ([facility]) Levothyroxine Sodium 0.112 MG Oral Tablet 08/26/2019 12:00:00 AM ES T eCW1 ([facility]) Umeclidinium [place] 62.5 MCG/INH 08/26/2019 12:00:00 AM EST eCW1 ([facility]) Albuterol 0.83 MG/ML Inhalant Solution 08/26/2019 12:00:00 AM EST eCW1 ([facility]) Nebulizer - 08/26/2019 12:00:00 AM EST e CW1 ([facility])
[2020-10-01 14:30] LABS: INR 0.96
[2020-10-01] MEDS ORDERED: GLUCAGON INJ 1MG VIAL SC PRN (14:30)
[2020-10-01] MEDS ORDERED: GLUCOSE 4GM CHEW TABLET PO PRN (14:30)
[2020-10-01] MEDS ORDERED: ACETAMINOPHEN TAB 650MG DOSE (2X325MG) PO PRN (14:30)
[2020-10-01] MEDS ORDERED: DEXTROSE 50% 50 ML SYRINGE IV PRN (14:30)
[2020-10-01 14:31] LABS: PARTIAL THROMBOPLASTIN TIME 25.4 SECONDS (24.2-38.5)
[2020-10-01 14:44] LABS: CHOLESTEROL LEVEL 157 MG/DL (<200); HDL CHOLESTEROL 50 MG/DL (>40); LDL CHOLESTEROL 84 MG/DL (<100); NON-HDL-C 107 MG/DL; TRIGLYCERIDES LEVEL 113 MG/DL (<150)
[2020-10-01] MEDS ORDERED: LOVA10TA PO (14:54)
[2020-10-01] MEDS ORDERED: SYNT125T PO (14:54)
[2020-10-01] MEDS ORDERED: COMMENTS (14:55)
[2020-10-01 14:57] LABS: HEMOGLOBIN A1c 7.5 %
[2020-10-01] MEDS ORDERED: LOPERAMIDE 2 MG CAPLET PO PRN (15:15)
--- OUTSIDE RECORDS SUMMARY | 2020-10-01 15:16 | CCD ---
Author Author [facility] Organization [facility] Address Unknown Phone Unavailable Care Team Providers Care Tare Worker Name Role Phone Nova Craig MD Unavailable [...] Unavailable Craig, Nova Washburn MD Unavailable Unavailable Criag, Nova Washburn MD Unavailable Unavailable Craig, Nova [...] Craig, Nova Washburn MD Unavailable Unavailable Craig, Nvoa Washburn MD Unavailable Unavailable Craig, Nova Washburn [...] is protected by Article 27-F of the [facility] Public Health law. If you continue you may have access to information: Regarding HIV / AIDS; Provided by facilities licensed or operated by the [facility] Office of Mental Health; or Provided by the [facility] Office for People With Developmental Disabilities. If such information is present, then the following [facility] mandated warning applies: This information has been [...] law may result in a fine or retirement sentence or both. A general authorization for the release of medical or other information is NOT sufficient authorization for further disc losure. Allergies and Adverse Reactions Type Description Substance Reaction Status Data Source(s ) tetracycline Tetracycline HCl Tetracycline Rash Active [facility] ([facility]) Encounters Encounter Providers Location Date Indications Data Source(s ) [place] [address] [facility] [place] [address] 09/21/2020 12:00:00 AM EST eCW1 ([facility] [place] [address] [facility] [address] 09/19/2020 12:00:00 AM EST eCW1 ([facility]) [place] [address] [facility] [address] 09/02/2020 12:00:00 AM EST eCW1 ([facility]) Outpatient Attender: OSCAR FULLER PAConsultant: RANDELL SAAB MD 08/29/2020 12:11:56 PM EST [facility] Unknown [address] [facility] [address] 08/26/2020 12:00:00 AM EST eCW1 ([facility]) Outpatient [address] [facility] [address] 08/22/2020 12:00:00 AM EST eCW1 ([facility]) Unknown [address] [facility] [address] 08/22/2020 12:00:00 AM EST eCW1 ([facility]) [place] [address] [facility] [address] 08/22/2020 12:00:00 AM EST eCW1 ([facility]) [place] [address] [facility] [address] 08/08/2020 12:00:00 AM EST eCW1 ([facility]) [place] [address] [facility] [address] 07/18/2020 12:00:00 AM EST eCW1 ([facility]) [place] [address] [facility] [address] 07/14/2020 12:00:00 AM EDT eCW1 ([facility]) Outpatient [address] [facility] [address] 07/08/2020 12:00:00 AM EDT eCW1 ([facility]) Unknown [address] [facility] [address] 06/28/2020 12:00:00 AM EDT eCW1 ([facility]) [place] [address] [facility] [address] 06/27/2020 12:00:00 AM EDT eCW1 ([facility]) Unknown [address] [facility] [place] [address] 06/27/2020 12:00:00 AM EDT eCW1 ([facility]) Outpatient Attender: OSCAR SILVER Physical Therapy 06/23/2020 11:30:00 AM EDT MED[facility] ([facility]) Outpatient [address] [facility] [place] [address] 06/15/2020 12:00:00 AM EDT eCW1 ([facility]) Unknown [address] [facility] [place] [address] 06/15/2020 12:00:00 AM EDT eCW1 ([facility]) Outpatient Attender: Wu Craig MD Physical Therapy 05/18/2020 0 3:00:00 PM EDT MEDENT ([facility]) Office Visit Attender: Wu Craig MD Physical Therapy 2019 06:00:00 PM EDT MEDENT ([facility]) Outpatient Attender: CARLOS PATEL [facility] Office 04/16 02:45:00 PM EDT MEDENT ([facility] Unknown [address] [facility], [place] [address] 04/06/2020 12:00:00 AM EDT eCW1 ([facility]) Outpatient [address] [facility] [place] [address] 03/28/2020 12:00:00 AM EDT eCW1 ([facility]) Outpatient Attender: Wu Craig MD Physical Therapy 03/07/2020 0 3:30:00 PM EDT MEDENT ([facility]) Outpatient Referrer: Wu Craig [...] PM EDT [facility] Unknown [address] [facility] [address] 02/20/2020 12:00:00 AM EDT eCW1 ([facility]) Outpatient [address] [facility] [address] 02/12/2020 12:00:00 AM EDT eCW1 ([facility]) [facility] [place] [address] [facility] [address] 02/12/2020 12:00:00 AM EDT eCW1 ([facility]) Outpatient Referrer: Wu Craig MD 02/10/2020 09:05:00 AM EDT [facility] [place] [address] [facility] [address] 02/09/2020 12:00:00 AM EDT eCW1 ([facility]) Outpatient Referrer: Wu Craig MD 02/05/2020 01:15:00 PM EDT [facility] Outpatient 02/05/2020 01:13:00 PM EDT [facility] Outpatient 02/05/2020 12:30:00 PM EDT [facility] [address] [facility] [address] 02/05/2020 12:00:00 AM EDT eCW1 ([facility]) Outpatient Attender: Wu Craig MD Physical Therapy 02/02/2020 0 3:15:00 PM EDT MED[facility] ([facility]) [facility] [place] [address] [facility] [address] 02/01/2020 12:00:00 AM EDT eCW1 ([facility]) [facility] [address] [facility] [address] 01/31/2020 12:00:00 AM EDT eCW1 ([facility]) [facility] [place] [address] [facility] [address] 01/22/2020 12:00:00 AM EDT eCW1 ([facility]) [facility] [place] [address] [facility] [address] 01/11/2020 12:00:00 AM EDT eCW1 ([facility]) [facility] [place] [address] [facility] [address] 01/09/2020 12:00:00 AM EDT [facility] [address] [facility] [place] [address] 12/28/2019 12:00:00 AM EDT [facility] [address] [facility] [place] [address] 12/28/2019 12:00:00 AM EDT [facility]CW[facility] [address] [facility] [place] [address] 12/23/2019 12:00:00 AM EDT [facility]CW[facility] [address] [facility] [address] 11/24/2019 12:00:00 AM EDT eCW1 [facility]) Outpatient 11/23/2019 01:27:00 PM EDT [facility] [address] [facility] [place] [address] 11/20/2019 12:00:00 AM EST eCW1 ([facility] [address] [facility] [place] [address] 11/19/2019 12:00:00 AM EST eCW1 ([facility] [address] [facility] [place] [address] 11/12/2019 12:00:00 AM EST eCW1 ([facility]) [facility] [place] [address] [facility] [place] [address] 11/10/2019 12:00:00 AM EST eCW1 ([facility]) [facility] [place] [address] [facility] [address] 11/05/2019 12:00:00 AM EST eCW1 ([facility]) [facility] [address] [facility] [place] [address] 11/04/2019 12:00:00 AM EST eCW1 ([facility]) [facility] [address] [facility] [place] [address] 10/21/2019 12:00:00 AM EST eCW1 ([facility]) [facility] [address] [facility] [place] [address] 10/20/2019 12:00:00 AM EST eCW1 ([facility]) [facility] [address] [facility] [place] [address] 2019 12:00:00 AM EST eCW1 ([facility]) [facility] [address] [facility] [place] [address] 10/14/2019 12:00:00 AM EST eCW1 ([facility]) [facility] [address] [facility] [address] 10/14/2019 12:00:00 AM EST eCW1 ([facility]) [facility] [address] [facility] [place] [address] 09/30/2019 12:00:00 AM EST eCW1 ([facility]) [facility] [address] [facility] [place] [address] 09/29/2019 12:00:00 AM EST eCW1 ([facility]) [facility] [address] [facility] [place] [address] 09/22/2019 12:00:00 AM EST eCW1 ([facility]) [facility] [address] [facility] [place] [address] 09/13/2019 12:00:00 AM EST eCW1 ([facility]) [facility] [address] [facility] [place] [address] 09/10/2019 12:00:00 AM EST eCW1 ([facility]) [facility] [address] [facility] [place] [address] 09/02/2019 12:00:00 AM EST eCW1 ([facility]) [facility] [address] [facility] [place] [address] 09/02/2019 12:00:00 AM EST eCW1 ([facility]) [facility] [address] [facility] [place] [address] 09/02/2019 12:00:00 AM EST eCW1 ([facility]) [facility] [address] [facility] [place] [address] 09/02/2019 12:00:00 AM EST eCW1 ([facility]) [facility] [address] [facility] [place] [address] 08/27/2019 12:00:00 AM EST eCW1 ([facility]) [facility] [address] [facility] [place] [address] 08/26/2019 12:00:00 AM EST eCW1 ([facility]) [facility] [address] [facility] [place] [address] 08/25/2019 12:00:00 AM EST eCW1 ([facility]) [facility] [address] [facility] [place] [address] 08/21/2019 12:00:00 AM EST eCW1 ([facility]) [facility] [address] [facility] [place] [address] 08/10/2019 12:00:00 AM EST [facility] [address] [facility] [place] [address] 08/07/2019 12:00:00 AM EST eCW1 ([facility]) Immunizations Vaccine Date Status Description Data Source(s) influenza, recombinant, quadrIvalent,injectable, prese rvative free 08/22/2020 02:36:00 PM EST completed eCW1 ([facility]) influenza, recombinant, quadrIvalent,injectable, prese rvative free 08/22/2020 02:36:00 PM EST completed eCW1 ([facility]) influenza, recombinant, quadrIvalent,injectable, prese rvative free 08/22/2020 02:36:00 PM EST completed eCW1 ([facility]) influenza, recombinant, quadrIvalent,injectable, prese rvative free 08/22/2020 02:36:00 PM EST completed eCW1 ([facility]) influenza, recombinant, quadrIvalent,injectable, prese rvative free 08/22/2020 02:36:00 PM EST completed eCW1 ([facility]) influenza, recombinant, quadrIvalent,injectable, prese rvative free 08/22/2020 02:36:00 PM EST completed eCW1 ([facility]) influenza, recombinant, quadrIvalent,injectable, prese rvative free 08/22/2020 02:36:00 PM EST completed eCW1 ([facility]) influenza, recombinant, quadrIvalent,injectable, prese rvative free 08/22/2020 02:36:00 PM EST completed eCW1 ([facility]) Medications Medication Brand Name Start Date Product Form Dose Route Admi nistrative Instructions Pharmacy Instructions Status Indications Reaction Description Data Source(s) FreeStyle Vero 14 Day Sensor - FreeStyle Vero 14 Day Senso r - 09/19/2020 12:00:00 AM EST active FreeStyl e Vero 14 Day Sensor - [facility]) FreeStyle Vero 14 Day Sensor - FreeStyle Vero 14 Day Senso r - 09/19/2020 12:00:00 AM EST active FreeStyl e Vero 14 Day Sensor - eCW1 ([facility]) FreeStyle Vero 14 Day Sensor - FreeStyle Vero 14 Day Senso r - 09/19/2020 12:00:00 AM EST active FreeStyl e Vero 14 Day Sensor - eCW1 ([facility]) Lidocaine Hydrochloride 40 MG/ML Topical Cream Aspercreme W/ Lidocaine 08/29/2020 12:00:00 AM EST active [facility] Alprazolam 1 MG Oral Tablet [Xanax] Xanax 1 MG Xanax 1 MG 08/22/2020 12:00:00 AM EST 1.0 {tablet} active Xanax 1 MG eCW1 ([facility]) Alprazolam 1 MG Oral Tablet [Xanax] Xanax 1 MG Xanax 1 MG 08/22/2020 12:00:00 AM EST 1.0 {tablet} active Xanax 1 MG eCW1 ([facility]) Alprazolam 1 MG Oral Tablet [Xanax] Xanax 1 MG Xanax 1 MG 08/22/2020 12:00:00 AM EST 1.0 {tablet} active Xanax 1 MG eCW1 ([facility]) Alprazolam 1 MG Oral Tablet [Xanax] Xanax 1 MG Xanax 1 MG 08/22/2020 12:00:00 AM EST 1.0 {tablet} active Xanax 1 MG eCW1 ([facility]) Alprazolam 1 MG Oral Tablet [Xanax] Xanax 1 MG Xanax 1 MG 08/22/2020 12:00:00 AM EST 1.0 {tablet} active Xanax 1 MG eCW1 ([facility]) Alprazolam 1 MG Oral Tablet [Xanax] Xanax 1 MG Xanax 1 MG 08/22/2020 12:00:00 AM EST 1.0 {tablet} active Xanax 1 MG eCW1 ([facility]) Alprazolam 1 MG Oral Tablet [Xanax] Xanax 1 MG Xanax 1 MG 08/22/2020 12:00:00 AM EST 1.0 {tablet} active Xanax 1 MG eCW1 ([facility]) Alprazolam 1 MG Oral Tablet [Xanax] Xanax 1 MG Xanax 1 MG 08/22/2020 12:00:00 AM EST 1.0 {tablet} active Xanax 1 MG eCW1 ([facility]) Fluocinolone Acetonide 0.1 MG/ML Topical Solution Fluo cinolone Acetonide 0.01 % Fluocinolone Acetonide 0.01 % 07/08/2020 12:00:00 AM EDT 1.0 {appli cation} active Fluocinolone Acetonide 0. 01 % eCW1 ([facility]) Fluocinolone Acetonide 0.1 MG/ML Topical Solution Fluo cinolone Acetonide 0.01 % Fluocinolone Acetonide 0.01 % 07/08/2020 12:00:00 AM EDT 1.0 {appli cation} active Fluocinolone Acetonide 0. 01 % eCW1 ([facility]) Fluocinolone Acetonide 0.1 MG/ML Topical Solution Fluo cinolone Acetonide 0.01 % Fluocinolone Acetonide 0.01 % 07/08/2020 12:00:00 AM EDT 1.0 {appli cation} active Fluocinolone Acetonide 0. 01 % eCW1 ([facility]) Fluocinolone Acetonide 0.1 MG/ML Topical Solution Fluo cinolone Acetonide 0.01 % Fluocinolone Acetonide 0.01 % 07/08/2020 12:00:00 AM EDT 1.0 {appli cation} active Fluocinolone Acetonide 0. 01 % eCW1 ([facility]) Fluocinolone Acetonide 0.1 MG/ML Topical Solution Fluo cinolone Acetonide 0.01 % Fluocinolone Acetonide 0.01 % 07/08/2020 12:00:00 AM EDT 1.0 {appli cation} active Fluocinolone Acetonide 0. 01 % eCW1 ([facility]) Fluocinolone Acetonide 0.1 MG/ML Topical Solution Fluo cinolone Acetonide 0.01 % Fluocinolone Acetonide 0.01 % 07/08/2020 12:00:00 AM EDT 1.0 {appli cation} active Fluocinolone Acetonide 0. 01 % eCW1 ([facility]) Fluocinolone Acetonide 0.1 MG/ML Topical Solution Fluo cinolone Acetonide 0.01 % Fluocinolone Acetonide 0.01 % 07/08/2020 12:00:00 AM EDT 1.0 {appli cation} active Fluocinolone Acetonide 0. 01 % eCW1 ([facility]) Fluocinolone Acetonide 0.1 MG/ML Topical Solution Fluo cinolone Acetonide 0.01 % Fluocinolone Acetonide 0.01 % 07/08/2020 12:00:00 AM EDT 1.0 {appli cation} active Fluocinolone Acetonide 0. 01 % eCW1 ([facility]) Fluocinolone Acetonide 0.1 MG/ML Topical Solution Fluo cinolone Acetonide 0.01 % Fluocinolone Acetonide 0.01 % 07/08/2020 12:00:00 AM EDT 1.0 {appli cation} active Fluocinolone Acetonide 0. 01 % eCW1 ([facility]) Fluocinolone Acetonide 0.1 MG/ML Topical Solution Fluo cinolone Acetonide 0.01 % Fluocinolone Acetonide 0.01 % 07/08/2020 12:00:00 AM EDT 1.0 {appli cation} active Fluocinolone Acetonide 0. 01 % eCW1 ([facility]) Fluocinolone Acetonide 0.1 MG/ML Topical Solution Fluo cinolone Acetonide 0.01 % Fluocinolone Acetonide 0.01 % 07/08/2020 12:00:00 AM EDT 1.0 {appli cation} active Fluocinolone Acetonide 0. 01 % eCW1 ([facility]) Fluocinolone Acetonide 0.1 MG/ML Topical Solution Fluo cinolone Acetonide 0.01 % Fluocinolone Acetonide 0.01 % 07/08/2020 12:00:00 AM EDT 1.0 {appli cation} active Fluocinolone Acetonide 0. 01 % eCW1 ([facility]) Levothyroxine Sodium 0.125 MG Oral Tablet Levothyroxin e Sodium 125 MCG Levothyroxine Sodium 125 MCG 06/27/2020 12:00:00 AM EDT active Levothyroxine Sodium 125 MCG eCW1 ([facility]) Levothyroxine Sodium 0.125 MG Oral Tablet Levothyroxin e Sodium 125 MCG Levothyroxine Sodium 125 MCG 06/27/2020 12:00:00 AM EDT active Levothyroxine Sodium 125 MCG eCW1 ([facility]) Levothyroxine Sodium 0.125 MG Oral Tablet Levothyroxin e Sodium 125 MCG Levothyroxine Sodium 125 MCG 06/27/2020 12:00:00 AM EDT active Levothyroxine Sodium 125 MCG eCW1 ([facility]) Levothyroxine Sodium 0.125 MG Oral Tablet Levothyroxin e Sodium 125 MCG Levothyroxine Sodium 125 MCG 06/27/2020 12:00:00 AM EDT active Levothyroxine Sodium 125 MCG eCW1 ([facility]) Levothyroxine Sodium 0.125 MG Oral Tablet Levothyroxin e Sodium 125 MCG Levothyroxine Sodium 125 MCG 06/27/2020 12:00:00 AM EDT active Levothyroxine Sodium 125 MCG eCW1 ([facility]) Levothyroxine Sodium 0.125 MG Oral Tablet Levothyroxin e Sodium 125 MCG Levothyroxine Sodium 125 MCG 06/27/2020 12:00:00 AM EDT active Levothyroxine Sodium 125 MCG eCW1 ([facility]) Levothyroxine Sodium 0.125 MG Oral Tablet Levothyroxin e Sodium 125 MCG Levothyroxine Sodium 125 MCG 06/27/2020 12:00:00 AM EDT active Levothyroxine Sodium 125 MCG eCW1 ([facility]) Levothyroxine Sodium 0.125 MG Oral Tablet Levothyroxin e Sodium 125 MCG Levothyroxine Sodium 125 MCG 06/27/2020 12:00:00 AM EDT active Levothyroxine Sodium 125 MCG eCW1 ([facility]) Levothyroxine Sodium 0.125 MG Oral Tablet Levothyroxin e Sodium 125 MCG Levothyroxine Sodium 125 MCG 06/27/2020 12:00:00 AM EDT active Levothyroxine Sodium 125 MCG eCW1 ([facility]) Levothyroxine Sodium 0.125 MG Oral Tablet Levothyroxin e Sodium 125 MCG Levothyroxine Sodium 125 MCG 06/27/2020 12:00:00 AM EDT active Levothyroxine Sodium 125 MCG eCW1 ([facility]) Levothyroxine Sodium 0.125 MG Oral Tablet Levothyroxin e Sodium 125 MCG Levothyroxine Sodium 125 MCG 06/27/2020 12:00:00 AM EDT active Levothyroxine Sodium 125 MCG eCW1 ([facility]) Levothyroxine Sodium 0.125 MG Oral Tablet Levothyroxin e Sodium 125 MCG Levothyroxine Sodium 125 MCG 06/27/2020 12:00:00 AM EDT active Levothyroxine Sodium 125 MCG eCW1 ([facility]) Levothyroxine Sodium 0.125 MG Oral Tablet Levothyroxin e Sodium 125 MCG Levothyroxine Sodium 125 MCG 06/27/2020 12:00:00 AM EDT active Levothyroxine Sodium 125 MCG eCW1 ([facility]) Levothyroxine Sodium 0.125 MG Oral Tablet Levothyroxin e Sodium 125 MCG Levothyroxine Sodium 125 MCG 06/27/2020 12:00:00 AM EDT active Levothyroxine Sodium 125 MCG eCW1 ([facility]) Levothyroxine Sodium 0.125 MG Oral Tablet Levothyroxin e Sodium 125 MCG Levothyroxine Sodium 125 MCG 06/27/2020 12:00:00 AM EDT active Levothyroxine Sodium 125 MCG eCW1 ([facility]) FreeStyle Vero [place] - FreeStyle Vero [place] - 06/15/2020 12:00: 00 AM EDT active FreeStyle Vero [place] - eCW1 ([facility]) FreeStyle Vero [place] - FreeStyle Vero [place] - 06/15/2020 12:00: 00 AM EDT active FreeStyle Vero [place] - eCW1 ([facility]) FreeStyle Vero [place] - FreeStyle Vero [place] - 06/15/2020 12:00: 00 AM EDT active FreeStyle Vero [place] - eCW1 ([facility]) FreeStyle Vero [place] - FreeStyle Vero [place] - 06/15/2020 12:00: 00 AM EDT active FreeStyle Vero [place] - eCW1 ([facility]) FreeStyle Vero [place] - FreeStyle Vero [place] - 06/15/2020 12:00: 00 AM EDT active FreeStyle Vero [place] - eCW1 ([facility]) FreeStyle Vero [place] - FreeStyle Vero [place] - 06/15/2020 12:00: 00 AM EDT active FreeStyle Vero [place] - eCW1 ([facility]) FreeStyle Vero [place] - FreeStyle Vero [place] - 06/15/2020 12:00: 00 AM EDT active FreeStyle Vero [place] - eCW1 ([facility]) FreeStyle Vero [place] - FreeStyle Vero [place] - 06/15/2020 12:00: 00 AM EDT active FreeStyle Vero [place] - eCW1 ([facility]) FreeStyle Vero [place] - FreeStyle Vero [place] - 06/15/2020 12:00: 00 AM EDT active FreeStyle Vero [place] - eCW1 ([facility]) FreeStyle Vero [place] - FreeStyle Vero [place] - 06/15/2020 12:00: 00 AM EDT active FreeStyle Vero [place] - eCW1 ([facility]) FreeStyle Vero [place] - FreeStyle Vero [place] - 06/15/2020 12:00: 00 AM EDT active FreeStyle Vero [place] - eCW1 ([facility]) FreeStyle Vero [place] - FreeStyle Vero [place] - 06/15/2020 12:00: 00 AM EDT active FreeStyle Vero [place] - eCW1 ([facility]) FreeStyle Vero [place] - FreeStyle Vero [place] - 06/15/2020 12:00: 00 AM EDT active FreeStyle Vero [place] - eCW1 ([facility]) FreeStyle Vero [place] - FreeStyle Vero [place] - 06/15/2020 12:00: 00 AM EDT active FreeStyle Vero [place] - eCW1 ([facility]) FreeStyle Vero [place] - FreeStyle Vero [place] - 06/15/2020 12:00: 00 AM EDT active FreeStyle Vero [place] - eCW1 ([facility]) FreeStyle Vero [place] - FreeStyle Vero [place] - 06/15/2020 12:00: 00 AM EDT active FreeStyle Vero [place] - eCW1 ([facility]) gabapentin 100 MG Oral Capsule Gabapentin 100 MG Gabapentin 100 MG 03/28/2020 12:00:00 AM EDT 1.0 {capsule} active G abapentin 100 MG eCW1 ([facility]) gabapentin 100 MG Oral Capsule Gabapentin 100 MG Gabapentin 100 MG 03/28/2020 12:00:00 AM EDT 1.0 {capsule} active G abapentin 100 MG eCW1 ([facility]) gabapentin 100 MG Oral Capsule Gabapentin 100 MG Gabapentin 100 MG 03/28/2020 12:00:00 AM EDT 1.0 {capsule} active G abapentin 100 MG eCW1 ([facility]) gabapentin 100 MG Oral Capsule Gabapentin 100 MG Gabapentin 100 MG 03/28/2020 12:00:00 AM EDT 1.0 {capsule} active G abapentin 100 MG eCW1 ([facility]) gabapentin 100 MG Oral Capsule Gabapentin 100 MG Gabapentin 100 MG 03/28/2020 12:00:00 AM EDT 1.0 {capsule} active G abapentin 100 MG eCW1 ([facility]) OneTouch UltraSoft Lancets - OneTouch UltraSoft Lancets - 12:00:00 AM EDT active OneTouch UltraSof t Lancets - eCW1 ([facility]) OneTouch UltraSoft Lancets - OneTouch UltraSoft Lancets - 12:00:00 AM EDT active OneTouch UltraSof t Lancets - eCW1 ([facility]) OneTouch Ultra Test - UNK 12/23/2019 12:00:00 AM EDT active OneTouch Ultra Test - eCW1 ([facility]) OneTouch Ultra Test - UNK 12/23/2019 12:00:00 AM EDT active OneTouch Ultra Test - eCW1 ([facility]) OneTouch Ultra Test - UNK 12/23/2019 12:00:00 AM EDT active OneTouch Ultra Test - eCW1 ([facility]) OneTouch Ultra Test - UNK 12/23/2019 12:00:00 AM EDT active OneTouch Ultra Test - [facility]) OneTouch UltraSoft Lancets - OneTouch UltraSoft Lancets - 12:00:00 AM EDT active as directed eCW1 ([facility]) OneTouch UltraSoft Lancets - OneTouch UltraSoft Lancets - 12:00:00 AM EDT active OneTouch UltraSof t Lancets - eCW1 ([facility]) OneTouch UltraSoft Lancets - OneTouch UltraSoft Lancets - 12:00:00 AM EDT active OneTouch UltraSof t Lancets - eCW1 ([facility]) OneTouch UltraSoft Lancets - OneTouch UltraSoft Lancets - 12:00:00 AM EDT active OneTouch UltraSof t Lancets - eCW1 ([facility]) OneTouch Ultra Test - UNK 12/23/2019 12:00:00 AM EDT active OneTouch Ultra Test - eCW1 ([facility]) OneTouch Ultra Test - UNK 12/23/2019 12:00:00 AM EDT active OneTouch Ultra Test - eCW1 ([facility]) OneTouch UltraSoft Lancets - OneTouch UltraSoft Lancets - 12:00:00 AM EDT active OneTouch UltraSof t Lancets - eCW1 ([facility]) OneTouch Ultra Test - UNK 12/23/2019 12:00:00 AM EDT active OneTouch Ultra Test - eCW1 ([facility]) OneTouch UltraSoft Lancets - OneTouch UltraSoft Lancets - 12:00:00 AM EDT active OneTouch UltraSof t Lancets - eCW1 ([facility]) OneTouch Ultra Test - UNK 12/23/2019 12:00:00 AM EDT active OneTouch Ultra Test - eCW1 ([facility]) OneTouch UltraSoft Lancets - OneTouch UltraSoft Lancets - 12:00:00 AM EDT active OneTouch UltraSof t Lancets - eCW1 ([facility]) OneTouch Ultra Test - UNK 12/23/2019 12:00:00 AM EDT active OneTouch Ultra Test - eCW1 ([facility]) OneTouch UltraSoft Lancets - OneTouch UltraSoft Lancets - 12:00:00 AM EDT active OneTouch UltraSof t Lancets - eCW1 ([facility]) OneTouch Ultra Test - UNK 12/23/2019 12:00:00 AM EDT active OneTouch Ultra Test - eCW1 ([facility]) OneTouch Ultra Test - UNK 12/23/2019 12:00:00 AM EDT active as directed eCW1 ([facility]) OneTouch Ultra Test - UNK 12/23/2019 12:00:00 AM EDT active OneTouch Ultra Test - eCW1 ([facility]) OneTouch UltraSoft Lancets - OneTouch UltraSoft Lancets - 12:00:00 AM EDT active OneTouch UltraSof t Lancets - eCW1 ([facility]) OneTouch Ultra Test - UNK 12/23/2019 12:00:00 AM EDT active as directed eCW1 ([facility]) OneTouch Ultra Test - UNK 12/23/2019 12:00:00 AM EDT active OneTouch Ultra Test - eCW1 ([facility]) OneTouch UltraSoft Lancets - OneTouch UltraSoft Lancets - 12:00:00 AM EDT active OneTouch UltraSof t Lancets - eCW1 ([facility]) OneTouch Ultra Test - UNK 12/23/2019 12:00:00 AM EDT active OneTouch Ultra Test - eCW1 ([facility]) OneTouch Ultra Test - UNK 12/23/2019 12:00:00 AM EDT active OneTouch Ultra Test - eCW1 ([facility]) OneTouch UltraSoft Lancets - OneTouch UltraSoft Lancets - 12:00:00 AM EDT active OneTouch UltraSof t Lancets - eCW1 ([facility]) OneTouch UltraSoft Lancets - OneTouch UltraSoft Lancets - 12:00:00 AM EDT active OneTouch UltraSof t Lancets - eCW1 ([facility]) OneTouch Ultra Test - UNK 12/23/2019 12:00:00 AM EDT active OneTouch Ultra Test - eCW1 ([facility]) OneTouch Ultra Test - UNK 12/23/2019 12:00:00 AM EDT active OneTouch Ultra Test - eCW1 ([facility]) OneTouch UltraSoft Lancets - OneTouch UltraSoft Lancets - 12:00:00 AM EDT active OneTouch UltraSof t Lancets - eCW1 ([facility]) OneTouch Ultra Test - UNK 12/23/2019 12:00:00 AM EDT active OneTouch Ultra Test - eCW1 ([facility]) OneTouch UltraSoft Lancets - OneTouch UltraSoft Lancets - 12:00:00 AM EDT active OneTouch UltraSof t Lancets - eCW1 ([facility]) OneTouch Ultra Test - UNK 12/23/2019 12:00:00 AM EDT active OneTouch Ultra Test - eCW1 ([facility]) OneTouch Ultra Test - UNK 12/23/2019 12:00:00 AM EDT active as directed eCW1 ([facility]) OneTouch UltraSoft Lancets - OneTouch UltraSoft Lancets - 12:00:00 AM EDT active OneTouch UltraSof t Lancets - eCW1 ([facility]) OneTouch UltraSoft Lancets - OneTouch UltraSoft Lancets - 12:00:00 AM EDT active OneTouch UltraSof t Lancets - eCW1 ([facility]) OneTouch Ultra Test - UNK 12/23/2019 12:00:00 AM EDT active OneTouch Ultra Test - eCW1 ([facility]) OneTouch UltraSoft Lancets - OneTouch UltraSoft Lancets - 12:00:00 AM EDT active OneTouch UltraSof t Lancets - eCW1 ([facility]) OneTouch UltraSoft Lancets - OneTouch UltraSoft Lancets - 12:00:00 AM EDT active OneTouch UltraSof t Lancets - eCW1 ([facility]) OneTouch Ultra Test - UNK 12/23/2019 12:00:00 AM EDT active OneTouch Ultra Test - eCW1 ([facility]) OneTouch UltraSoft Lancets - OneTouch UltraSoft Lancets - 12:00:00 AM EDT active OneTouch UltraSof t Lancets - eCW1 ([facility]) 0.5 ML dulaglutide 1.5 MG/ML Auto-Injector [Trulicity] Trulicity 0.75 MG/0.5ML Trulicity 0.75 MG/0.5ML 11/20/2019 12:00:00 AM EST active 1 tab eCW1 ([facility]) 0.5 ML dulaglutide 1.5 MG/ML Auto-Injector [Trulicity] Trulicity 0.75 MG/0.5ML Trulicity 0.75 MG/0.5ML 11/20/2019 12:00:00 AM EST active 1 tab eCW1 ([facility]) POLYETHYLENE GLYCOL 3350 105 MG/ML / Pot assium Chloride 0.81285 MEQ/ML / Sodium Bicarbonate 0.017 MEQ/ML / Sodium Chloride 0.0479 MEQ/ML Oral Solution [TriLyte] Trilyte 11/04/2019 12:00:00 AM EST active MEDENT ([facility]) Magnesium Hydroxide 80 MG/ML Oral Suspension Milk Of Babs whatley 11/04/2019 12:00:00 AM EST ORAL active M EDENT ([facility] ) Metamucil Fiber 11/04/2019 12:00:00 AM EST ac tive MEDENT ([facility], ) ciclopirox 80 MG/ML Topical Solution Ciclopirox 10/06/2019 12:00:00 A M EST active [facility] ([facility] Chlorthalidone 25 MG Oral Tablet Chlorthalidone 25 MG 2019 12:00:00 AM EST 1.0 {tablet_in_the_morning_with_food} active Chlorthalidone 25 MG eCW1 ([facility]) Chlorthalidone 25 MG Oral Tablet Chlorthalidone 25 MG 2019 12:00:00 AM EST active 1 tablet in the m orning with food eCW1 ([facility]) Chlorthalidone 25 MG Oral Tablet Chlorthalidone 25 MG 2019 12:00:00 AM EST 1.0 {tablet_in_the_morning_with_food} active Chlorthalidone 25 MG eCW1 ([facility]) Chlorthalidone 25 MG Oral Tablet Chlorthalidone 25 MG 2019 12:00:00 AM EST 1.0 {tablet_in_the_morning_with_food} active Chlorthalidone 25 MG eCW1 ([facility]) Chlorthalidone 25 MG Oral Tablet Chlorthalidone 25 MG 2019 12:00:00 AM EST 1.0 {tablet_in_the_morning_with_food} active Chlorthalidone 25 MG eCW1 ([facility]) Chlorthalidone 25 MG Oral Tablet Chlorthalidone 25 MG 2019 12:00:00 AM EST 1.0 {tablet_in_the_morning_with_food} active Chlorthalidone 25 MG eCW1 ([facility]) Chlorthalidone 25 MG Oral Tablet Chlorthalidone 25 MG 2019 12:00:00 AM EST active 1 tablet in the m orning with food eCW1 ([facility]) Chlorthalidone 25 MG Oral Tablet Chlorthalidone 25 MG 2019 12:00:00 AM EST 1.0 {tablet_in_the_morning_with_food} active Chlorthalidone 25 MG eCW1 ([facility]) Chlorthalidone 25 MG Oral Tablet Chlorthalidone 25 MG 2019 12:00:00 AM EST 1.0 {tablet_in_the_morning_with_food} active Chlorthalidone 25 MG eCW1 ([facility]) Chlorthalidone 25 MG Oral Tablet Chlorthalidone 25 MG 2019 12:00:00 AM EST 1.0 {tablet_in_the_morning_with_food} active Chlorthalidone 25 MG eCW1 ([facility]) Chlorthalidone 25 MG Oral Tablet Chlorthalidone 25 MG 2019 12:00:00 AM EST 1.0 {tablet_in_the_morning_with_food} active Chlorthalidone 25 MG eCW1 ([facility]) Chlorthalidone 25 MG Oral Tablet Chlorthalidone 25 MG 2019 12:00:00 AM EST 1.0 {tablet_in_the_morning_with_food} active Chlorthalidone 25 MG eCW1 ([facility]) Chlorthalidone 25 MG UNK 09/30/2019 12:00:00 AM EST active 1 tablet in the morning with food eCW1 ([facility]) Chlorthalidone 25 MG Oral Tablet Chlorthalidone 25 MG 2019 12:00:00 AM EST active 1 tablet in the m orning with food eCW1 ([facility]) Chlorthalidone 25 MG Oral Tablet Chlorthalidone 25 MG 2019 12:00:00 AM EST 1.0 {tablet_in_the_morning_with_food} active Chlorthalidone 25 MG eCW1 ([facility]) Chlorthalidone 25 MG Oral Tablet Chlorthalidone 25 MG 2019 12:00:00 AM EST active 1 tablet in the m orning with food eCW1 ([facility]) Chlorthalidone 25 MG Oral Tablet Chlorthalidone 25 MG 2019 12:00:00 AM EST active 1 tablet in the m orning with food eCW1 ([facility]) Chlorthalidone 25 MG Oral Tablet Chlorthalidone 25 MG 2019 12:00:00 AM EST 1.0 {tablet_in_the_morning_with_food} active Chlorthalidone 25 MG eCW1 ([facility]) Chlorthalidone 25 MG Oral Tablet Chlorthalidone 25 MG 2019 12:00:00 AM EST 1.0 {tablet_in_the_morning_with_food} active Chlorthalidone 25 MG eCW1 ([facility]) Chlorthalidone 25 MG Oral Tablet Chlorthalidone 25 MG 2019 12:00:00 AM EST 1.0 {tablet_in_the_morning_with_food} active Chlorthalidone 25 MG eCW1 ([facility]) Chlorthalidone 25 MG Oral Tablet Chlorthalidone 25 MG 2019 12:00:00 AM EST 1.0 {tablet_in_the_morning_with_food} active Chlorthalidone 25 MG eCW1 ([facility]) Chlorthalidone 25 MG Oral Tablet Chlorthalidone 25 MG 2019 12:00:00 AM EST 1.0 {tablet_in_the_morning_with_food} active Chlorthalidone 25 MG eCW1 ([facility]) Chlorthalidone 25 MG Oral Tablet Chlorthalidone 25 MG 2019 12:00:00 AM EST active 1 tablet in the m orning with food eCW1 ([facility]) Chlorthalidone 25 MG Oral Tablet Chlorthalidone 25 MG 2019 12:00:00 AM EST active 1 tablet in the m orning with food eCW1 ([facility]) Chlorthalidone 25 MG Oral Tablet Chlorthalidone 25 MG 2019 12:00:00 AM EST 1.0 {tablet_in_the_morning_with_food} active Chlorthalidone 25 MG eCW1 ([facility]) Chlorthalidone 25 MG Oral Tablet Chlorthalidone 25 MG 2019 12:00:00 AM EST 1.0 {tablet_in_the_morning_with_food} active Chlorthalidone 25 MG eCW1 ([facility]) Chlorthalidone 25 MG Oral Tablet Chlorthalidone 25 MG 2019 12:00:00 AM EST 1.0 {tablet_in_the_morning_with_food} active Chlorthalidone 25 MG eCW1 ([facility]) Chlorthalidone 25 MG Oral Tablet Chlorthalidone 25 MG 2019 12:00:00 AM EST 1.0 {tablet_in_the_morning_with_food} active Chlorthalidone 25 MG eCW1 ([facility]) Losartan Potassium 25 MG Oral Tablet Losartan Potassium 25 M G 09/10/2019 12:00:00 AM EST 1.0 {tablet} active Lo sartan Potassium 25 MG eCW1 ([facility]) Losartan Potassium 25 MG Oral Tablet Losartan Potassium 25 M G 09/10/2019 12:00:00 AM EST active 1 tablet eCW1 ([facility]) Losartan Potassium 25 MG Oral Tablet Losartan Potassium 25 M G 09/10/2019 12:00:00 AM EST 1.0 {tablet} active Lo sartan Potassium 25 MG eCW1 ([facility]) Losartan Potassium 25 MG Oral Tablet Losartan Potassium 25 M G 09/10/2019 12:00:00 AM EST 1.0 {tablet} active Lo sartan Potassium 25 MG eCW1 ([facility]) Losartan Potassium 25 MG Oral Tablet Losartan Potassium 25 M G 09/10/2019 12:00:00 AM EST 1.0 {tablet} active Lo sartan Potassium 25 MG eCW1 ([facility]) Loperamide HCl 2 MG UNK 09/10/2019 12:00:00 AM EST active 1 capsule as needed eCW1 ([facility]) Losartan Potassium 25 MG Oral Tablet Losartan Potassium 25 M G 09/10/2019 12:00:00 AM EST 1.0 {tablet} active Lo sartan Potassium 25 MG eCW1 ([facility]) Losartan Potassium 25 MG Oral Tablet Losartan Potassium 25 M G 09/10/2019 12:00:00 AM EST 1.0 {tablet} active Lo sartan Potassium 25 MG eCW1 ([facility]) Losartan Potassium 25 MG Oral Tablet Losartan Potassium 25 M G 09/10/2019 12:00:00 AM EST 1.0 {tablet} active Lo sartan Potassium 25 MG eCW1 ([facility]) Losartan Potassium 25 MG Oral Tablet Losartan Potassium 25 M G 09/10/2019 12:00:00 AM EST active 1 tablet eCW1 ([facility]) Losartan Potassium 25 MG Oral Tablet Losartan Potassium 25 M G 09/10/2019 12:00:00 AM EST 1.0 {tablet} active Lo sartan Potassium 25 MG eCW1 ([facility]) Loperamide Hydrochloride 2 MG Oral Capsule Loperamide HCl 2 MG Loperamide HCl 2 MG 09/10/2019 12:00:00 AM EST active 1 capsule as needed eCW1 ([facility]) Losartan Potassium 25 MG Oral Tablet Losartan Potassium 25 M G 09/10/2019 12:00:00 AM EST 1.0 {tablet} active Lo sartan Potassium 25 MG eCW1 ([facility]) Losartan Potassium 25 MG Oral Tablet Losartan Potassium 25 M G 09/10/2019 12:00:00 AM EST 1.0 {tablet} active Lo sartan Potassium 25 MG eCW1 ([facility]) Losartan Potassium 25 MG Oral Tablet Losartan Potassium 25 M G 09/10/2019 12:00:00 AM EST 1.0 {tablet} active Lo sartan Potassium 25 MG eCW1 ([facility]) Losartan Potassium 25 MG Oral Tablet Losartan Potassium 25 M G 09/10/2019 12:00:00 AM EST active 1 tablet eCW1 ([facility]) Loperamide Hydrochloride 2 MG Oral Capsule Loperamide HCl 2 MG Loperamide HCl 2 MG 09/10/2019 12:00:00 AM EST active 1 capsule as needed eCW1 ([facility]) Losartan Potassium 25 MG Oral Tablet Losartan Potassium 25 M G 09/10/2019 12:00:00 AM EST 1.0 {tablet} active Lo sartan Potassium 25 MG eCW1 ([facility]) Losartan Potassium 25 MG Oral Tablet Losartan Potassium 25 M G 09/10/2019 12:00:00 AM EST 1.0 {tablet} active Lo sartan Potassium 25 MG eCW1 ([facility]) Losartan Potassium 25 MG Oral Tablet Losartan Potassium 25 M G 09/10/2019 12:00:00 AM EST 1.0 {tablet} active Lo sartan Potassium 25 MG eCW1 ([facility]) Losartan Potassium 25 MG Oral Tablet Losartan Potassium 25 M G 09/10/2019 12:00:00 AM EST active 1 tablet eCW1 ([facility]) Losartan Potassium 25 MG Oral Tablet Losartan Potassium 25 M G 09/10/2019 12:00:00 AM EST 1.0 {tablet} active Lo sartan Potassium 25 MG eCW1 ([facility]) Losartan Potassium 25 MG Oral Tablet Losartan Potassium 25 M G 09/10/2019 12:00:00 AM EST 1.0 {tablet} active Lo sartan Potassium 25 MG eCW1 ([facility]) Loperamide Hydrochloride 2 MG Oral Capsule Loperamide HCl 2 MG Loperamide HCl 2 MG 09/10/2019 12:00:00 AM EST active 1 capsule as needed eCW1 ([facility]) Losartan Potassium 25 MG Oral Tablet Losartan Potassium 25 M G 09/10/2019 12:00:00 AM EST 1.0 {tablet} active Lo sartan Potassium 25 MG eCW1 ([facility]) Losartan Potassium 25 MG Oral Tablet Losartan Potassium 25 M G 09/10/2019 12:00:00 AM EST active 1 tablet eCW1 ([facility]) Losartan Potassium 25 MG UNK 09/10/2019 12:00:00 AM EST active 1 tablet eCW1 ([facility]) Losartan Potassium 25 MG Oral Tablet Losartan Potassium 25 M G 09/10/2019 12:00:00 AM EST 1.0 {tablet} active Lo sartan Potassium 25 MG eCW1 ([facility]) Losartan Potassium 25 MG Oral Tablet Losartan Potassium 25 M G 09/10/2019 12:00:00 AM EST 1.0 {tablet} active Lo sartan Potassium 25 MG eCW1 ([facility]) Losartan Potassium 25 MG Oral Tablet Losartan Potassium 25 M G 09/10/2019 12:00:00 AM EST 1.0 {tablet} active Lo sartan Potassium 25 MG eCW1 ([facility]) Nebulizer - Nebulizer - 08/26/2019 12:00:00 AM EST active Nebulizer - eCW1 ([facility]) Umeclidinium [place] 62.5 MCG/INH UNK 08/26/2019 12:00:00 AM EST 1.0 {puff} suspended Umeclidinium [place] 62.5 MCG/INH eCW1 ([facility]) Albuterol 0.83 MG/ML Inhalant Solution Albuterol Sulfa te (2.5 MG/3ML) 0.083% Albuterol Sulfate (2.5 MG/3ML) 0.083% 08/26/2019 12:00:00 AM EST 3.0 {ml_as_needed} suspended Albuterol Sulfa te (2.5 MG/3ML) 0.083% eCW1 ([facility]) Levothyroxine Sodium 0.112 MG Oral Tablet Levothyroxin e Sodium 112 MCG Levothyroxine Sodium 112 MCG 08/26/2019 12:00:00 AM EST active 1 tablet in the morning on an empty stomach eCW1 ([facility]) Nebulizer - Nebulizer - 08/26/2019 12:00:00 AM EST suspended j44.9 as directed eCW1 ([facility]) Levothyroxine Sodium 0.112 MG Oral Tablet Levothyroxin e Sodium 112 MCG Levothyroxine Sodium 112 MCG 08/26/2019 12:00:00 AM EST suspended Levothyroxine Sodium 112 MCG eCW1 ([facility]) Levothyroxine Sodium 0.112 MG Oral Tablet Levothyroxin e Sodium 112 MCG Levothyroxine Sodium 112 MCG 08/26/2019 12:00:00 AM EST active 1 tablet in the morning on an empty stomach eCW1 ([facility]) Nebulizer - Nebulizer - 08/26/2019 12:00:00 AM EST active Nebulizer - eCW1 ([facility]) Nebulizer - Nebulizer - 08/26/2019 12:00:00 AM EST active Nebulizer - eCW1 ([facility]) Umeclidinium [place] 62.5 MCG/INH UNK 08/26/2019 12:00:00 AM EST 1.0 {puff} suspended Umeclidinium [place] 62.5 MCG/INH eCW1 ([facility]) Umeclidinium [place] 62.5 MCG/INH UNK 08/26/2019 12:00:00 AM EST 1.0 {puff} suspended Umeclidinium [place] 62.5 MCG/INH eCW1 ([facility]) Levothyroxine Sodium 0.112 MG Oral Tablet Levothyroxin e Sodium 112 MCG Levothyroxine Sodium 112 MCG 08/26/2019 12:00:00 AM EST suspended Levothyroxine Sodium 112 MCG eCW1 ([facility]) Albuterol 0.83 MG/ML Inhalant Solution Albuterol Sulfa te (2.5 MG/3ML) 0.083% Albuterol Sulfate (2.5 MG/3ML) 0.083% 08/26/2019 12:00:00 AM EST suspended 3 ml as needed eCW1 ([facility]) Albuterol 0.83 MG/ML Inhalant Solution Albuterol Sulfa te (2.5 MG/3ML) 0.083% Albuterol Sulfate (2.5 MG/3ML) 0.083% 08/26/2019 12:00:00 AM EST 3.0 {ml_as_needed} suspended Albuterol Sulfa te (2.5 MG/3ML) 0.083% eCW1 ([facility]) Nebulizer - Nebulizer - 08/26/2019 12:00:00 AM EST active Nebulizer - eCW1 ([facility]) Nebulizer - Nebulizer - 08/26/2019 12:00:00 AM EST active j44.9 as directed eCW1 ([facility]) Umeclidinium [place] 62.5 MCG/INH UNK 08/26/2019 12:00:00 AM EST active 1 puff eCW1 ([facility]) Levothyroxine Sodium 0.112 MG Oral Tablet Levothyroxin e Sodium 112 MCG Levothyroxine Sodium 112 MCG 08/26/2019 12:00:00 AM EST suspended Levothyroxine Sodium 112 MCG eCW1 ([facility]) Levothyroxine Sodium 0.112 MG Oral Tablet Levothyroxin e Sodium 112 MCG Levothyroxine Sodium 112 MCG 08/26/2019 12:00:00 AM EST active Levothyroxine Sodium 112 MCG eCW1 ([facility]) Albuterol 0.83 MG/ML Inhalant Solution Albuterol Sulfa te (2.5 MG/3ML) 0.083% Albuterol Sulfate (2.5 MG/3ML) 0.083% 08/26/2019 12:00:00 AM EST active 3 ml as needed eCW1 ([facility]) Albuterol Sulfate (2.5 MG/3ML) 0.083% UNK 08/26/2019 12:00:00 AM EST active 3 ml as needed eCW1 ([facility]) Umeclidinium [place] 62.5 MCG/INH UNK 08/26/2019 12:00:00 AM EST suspended 1 puff eCW1 ([facility]) Nebulizer - UNK 08/26/2019 12:00:00 AM EST active j44.9 as directed eCW1 ([facility]) Umeclidinium [place] 62.5 MCG/INH UNK 08/26/2019 12:00:00 AM EST 1.0 {puff} suspended Umeclidinium [place] 62.5 MCG/INH eCW1 ([facility]) Umeclidinium [place] 62.5 MCG/INH UNK 08/26/2019 12:00:00 AM EST 1.0 {puff} suspended Umeclidinium [place] 62.5 MCG/INH eCW1 ([facility]) Nebulizer - Nebulizer - 08/26/2019 12:00:00 AM EST active Nebulizer - eCW1 ([facility]) Nebulizer - Nebulizer - 08/26/2019 12:00:00 AM EST suspended j44.9 as directed eCW1 ([facility]) Albuterol 0.83 MG/ML Inhalant Solution Albuterol Sulfa te (2.5 MG/3ML) 0.083% Albuterol Sulfate (2.5 MG/3ML) 0.083% 08/26/2019 12:00:00 AM EST 3.0 {ml_as_needed} suspended Albuterol Sulfa te (2.5 MG/3ML) 0.083% eCW1 ([facility]) Nebulizer - Nebulizer - 08/26/2019 12:00:00 AM EST suspended j44.9 as directed eCW1 ([facility]) Levothyroxine Sodium 0.112 MG Oral Tablet Levothyroxin e Sodium 112 MCG Levothyroxine Sodium 112 MCG 08/26/2019 12:00:00 AM EST active Levothyroxine Sodium 112 MCG eCW1 ([facility]) Nebulizer - Nebulizer - 08/26/2019 12:00:00 AM EST active Nebulizer - eCW1 ([facility]) Levothyroxine Sodium 0.112 MG Oral Tablet Levothyroxin e Sodium 112 MCG Levothyroxine Sodium 112 MCG 08/26/2019 12:00:00 AM EST active 1 tablet in the morning on an empty stomach eCW1 ([facility]) Umeclidinium [place] 62.5 MCG/INH UNK 08/26/2019 12:00:00 AM EST active 1 puff eCW1 ([facility]) Umeclidinium [place] 62.5 MCG/INH UNK 08/26/2019 12:00:00 AM EST 1.0 {puff} suspended Umeclidinium [place] 62.5 MCG/INH eCW1 ([facility]) Umeclidinium [place] 62.5 MCG/INH UNK 08/26/2019 12:00:00 AM EST 1.0 {puff} suspended Umeclidinium [place] 62.5 MCG/INH eCW1 ([facility]) Levothyroxine Sodium 0.112 MG Oral Tablet Levothyroxin e Sodium 112 MCG Levothyroxine Sodium 112 MCG 08/26/2019 12:00:00 AM EST active 1 tablet in the morning on an empty stomach eCW1 ([facility]) Nebulizer - Nebulizer - 08/26/2019 12:00:00 AM EST active Nebulizer - eCW1 ([facility]) Nebulizer - Nebulizer - 08/26/2019 12:00:00 AM EST active Nebulizer - eCW1 ([facility]) Umeclidinium [place] 62.5 MCG/INH UNK 08/26/2019 12:00:00 AM EST 1.0 {puff} suspended Umeclidinium [place] 62.5 MCG/INH eCW1 ([facility]) Levothyroxine Sodium 0.112 MG Oral Tablet Levothyroxin e Sodium 112 MCG Levothyroxine Sodium 112 MCG 08/26/2019 12:00:00 AM EST active Levothyroxine Sodium 112 MCG eCW1 ([facility]) Albuterol 0.83 MG/ML Inhalant Solution Albuterol Sulfa te (2.5 MG/3ML) 0.083% Albuterol Sulfate (2.5 MG/3ML) 0.083% 08/26/2019 12:00:00 AM EST suspended 3 ml as needed eCW1 ([facility]) Nebulizer - Nebulizer - 08/26/2019 12:00:00 AM EST active Nebulizer - eCW1 ([facility]) Albuterol 0.83 MG/ML Inhalant Solution Albuterol Sulfa te (2.5 MG/3ML) 0.083% Albuterol Sulfate (2.5 MG/3ML) 0.083% 08/26/2019 12:00:00 AM EST 3.0 {ml_as_needed} suspended Albuterol Sulfa te (2.5 MG/3ML) 0.083% eCW1 [facility]) Albuterol 0.83 MG/ML Inhalant Solution Albuterol Sulfa te (2.5 MG/3ML) 0.083% Albuterol Sulfate (2.5 MG/3ML) 0.083% 08/26/2019 12:00:00 AM EST 3.0 {ml_as_needed} suspended Albuterol Sulfa te (2.5 MG/3ML) 0.083% eCW1 [facility]) Nebulizer - Nebulizer - 08/26/2019 12:00:00 AM EST active Nebulizer - eCW1 ([facility]) Umeclidinium [place] 62.5 MCG/INH UNK 08/26/2019 12:00:00 AM EST active 1 puff eCW1 ([facility]) Nebulizer - Nebulizer - 08/26/2019 12:00:00 AM EST active Nebulizer - eCW1 ([facility]) Nebulizer - Nebulizer - 08/26/2019 12:00:00 AM EST active Nebulizer - eCW1 ([facility]) Nebulizer - Nebulizer - 08/26/2019 12:00:00 AM EST active Nebulizer - eCW1 ([facility]) Levothyroxine Sodium 0.112 MG Oral Tablet Levothyroxin e Sodium 112 MCG Levothyroxine Sodium 112 MCG 08/26/2019 12:00:00 AM EST active Levothyroxine Sodium 112 MCG eCW1 ([facility]) Albuterol 0.83 MG/ML Inhalant Solution Albuterol Sulfa te (2.5 MG/3ML) 0.083% Albuterol Sulfate (2.5 MG/3ML) 0.083% 08/26/2019 12:00:00 AM EST 3.0 {ml_as_needed} suspended Albuterol Sulfa te (2.5 MG/3ML) 0.083% eCW1 ([facility]) Levothyroxine Sodium 0.112 MG Oral Tablet Levothyroxin e Sodium 112 MCG Levothyroxine Sodium 112 MCG 08/26/2019 12:00:00 AM EST active Levothyroxine Sodium 112 MCG eCW1 ([facility]) Nebulizer - Nebulizer - 08/26/2019 12:00:00 AM EST active j44.9 as directed eCW1 ([facility]) Umeclidinium [place] 62.5 MCG/INH UNK 08/26/2019 12:00:00 AM EST suspended 1 puff eCW1 [facility]) Albuterol 0.83 MG/ML Inhalant Solution Albuterol Sulfa te (2.5 MG/3ML) 0.083% Albuterol Sulfate (2.5 MG/3ML) 0.083% 08/26/2019 12:00:00 AM EST 3.0 {ml_as_needed} suspended Albuterol Sulfa te (2.5 MG/3ML) 0.083% eCW1 [facility] Albuterol 0.83 MG/ML Inhalant Solution Albuterol Sulfa te (2.5 MG/3ML) 0.083% Albuterol Sulfate (2.5 MG/3ML) 0.083% 08/26/2019 12:00:00 AM EST 3.0 {ml_as_needed} suspended Albuterol Sulfa te (2.5 MG/3ML) 0.083% [facility] Albuterol 0.83 MG/ML Inhalant Solution Albuterol Sulfa te (2.5 MG/3ML) 0.083% Albuterol Sulfate (2.5 MG/3ML) 0.083% 08/26/2019 12:00:00 AM EST 3.0 {ml_as_needed} suspended Albuterol Sulfa te (2.5 MG/3ML) 0.083% [facility] Umeclidinium [place] 62.5 MCG/INH UNK 08/26/2019 12:00:00 AM EST suspended 1 puff [facility]CW1 [facility]) Nebulizer - Nebulizer - 08/26/2019 12:00:00 AM EST active Nebulizer - eCW1 [facility]) Umeclidinium [place] 62.5 MCG/INH UNK 08/26/2019 12:00:00 AM EST 1.0 {puff} suspended Umeclidinium [place] 62.5 MCG/INH eCW1 [facility]) Levothyroxine Sodium 0.112 MG Oral Tablet Levothyroxin e Sodium 112 MCG Levothyroxine Sodium 112 MCG 08/26/2019 12:00:00 AM EST active 1 tablet in the morning on an empty stomach [facility]CW1 [facility]) Levothyroxine Sodium 0.112 MG Oral Tablet Levothyroxin e Sodium 112 MCG Levothyroxine Sodium 112 MCG 08/26/2019 12:00:00 AM EST active 1 tablet in the morning on an empty stomach [facility]CW1 [facility]) Umeclidinium [place] 62.5 MCG/INH UNK 08/26/2019 12:00:00 AM EST 1.0 {puff} suspended Umeclidinium [place] 62.5 MCG/INH eCW1 [facility]) Nebulizer - Nebulizer - 08/26/2019 12:00:00 AM EST active Nebulizer - [facility]CW1 [facility]) Albuterol 0.83 MG/ML Inhalant Solution Albuterol Sulfa te (2.5 MG/3ML) 0.083% Albuterol Sulfate (2.5 MG/3ML) 0.083% 08/26/2019 12:00:00 AM EST suspended 3 ml as needed [facility]CW[facility]) Levothyroxine Sodium 0.112 MG Oral Tablet Levothyroxin e Sodium 112 MCG Levothyroxine Sodium 112 MCG 08/26/2019 12:00:00 AM EST active 1 tablet in the morning on an empty stomach eCW1 [facility]) Umeclidinium [place] 62.5 MCG/INH UNK 08/26/2019 12:00:00 AM EST 1.0 {puff} suspended Umeclidinium [place] 62.5 MCG/INH eCW1 [facility]) Albuterol 0.83 MG/ML Inhalant Solution Albuterol Sulfa te (2.5 MG/3ML) 0.083% Albuterol Sulfate (2.5 MG/3ML) 0.083% 08/26/2019 12:00:00 AM EST 3.0 {ml_as_needed} suspended Albuterol Sulfa te (2.5 MG/3ML) 0.083% [facility] Albuterol 0.83 MG/ML Inhalant Solution Albuterol Sulfa te (2.5 MG/3ML) 0.083% Albuterol Sulfate (2.5 MG/3ML) 0.083% 08/26/2019 12:00:00 AM EST active 3 ml as needed [facility]CW1 [facility]) Nebulizer - Nebulizer - 08/26/2019 12:00:00 AM EST active Nebulizer - [facility]CW1 [facility]) Umeclidinium [place] 62.5 MCG/INH UNK 08/26/2019 12:00:00 AM EST active 1 puff eCW1 [facility]) Umeclidinium [place] 62.5 MCG/INH UNK 08/26/2019 12:00:00 AM EST 1.0 {puff} suspended Umeclidinium [place] 62.5 MCG/INH eCW1 [facility]) Nebulizer - Nebulizer - 08/26/2019 12:00:00 AM EST active Nebulizer - eCW1 [facility]) Nebulizer - Nebulizer - 08/26/2019 12:00:00 AM EST active j44.9 as directed eCW1 ([facility]) Nebulizer - Nebulizer - 08/26/2019 12:00:00 AM EST active Nebulizer - [facility]CW1 [facility]) Nebulizer - Nebulizer - 08/26/2019 12:00:00 AM EST active Nebulizer - [facility]CW1 [facility]) Umeclidinium [place] 62.5 MCG/INH UNK 08/26/2019 12:00:00 AM EST active 1 puff [facility]CW1 [facility]) Albuterol 0.83 MG/ML Inhalant Solution Albuterol Sulfa te (2.5 MG/3ML) 0.083% Albuterol Sulfate (2.5 MG/3ML) 0.083% 08/26/2019 12:00:00 AM EST 3.0 {ml_as_needed} suspended Albuterol Sulfa te (2.5 MG/3ML) 0.083% [facility]CW1 [facility] Nebulizer - Nebulizer - 08/26/2019 12:00:00 AM EST active j44.9 as directed eCW1 ([facility]) Nebulizer - Nebulizer - 08/26/2019 12:00:00 AM EST active Nebulizer - eCW1 [facility]) Nebulizer - Nebulizer - 08/26/2019 12:00:00 AM EST active j44.9 as directed eCW1 [facility]) Albuterol 0.83 MG/ML Inhalant Solution Albuterol Sulfa te (2.5 MG/3ML) 0.083% Albuterol Sulfate (2.5 MG/3ML) 0.083% 08/26/2019 12:00:00 AM EST active 3 ml as needed eCW1 [facility]) Levothyroxine Sodium 0.112 MG Oral Tablet Levothyroxin e Sodium 112 MCG Levothyroxine Sodium 112 MCG 08/26/2019 12:00:00 AM EST active Levothyroxine Sodium 112 MCG eCW1 [facility]) Levothyroxine Sodium 112 MCG UNK 08/26/2019 12:00:00 AM EST active 1 tablet in the morning on an empty stomach eCW1 ([facility]) Levothyroxine Sodium 0.112 MG Oral Tablet Levothyroxin e Sodium 112 MCG Levothyroxine Sodium 112 MCG 08/26/2019 12:00:00 AM EST suspended Levothyroxine Sodium 112 MCG eCW1 [facility]) Albuterol 0.83 MG/ML Inhalant Solution Albuterol Sulfa te (2.5 MG/3ML) 0.083% Albuterol Sulfate (2.5 MG/3ML) 0.083% 08/26/2019 12:00:00 AM EST 3.0 {ml_as_needed} suspended Albuterol Sulfa te (2.5 MG/3ML) 0.083% [facility]CW1 [facility] Levothyroxine Sodium 0.112 MG Oral Tablet Levothyroxin e Sodium 112 MCG Levothyroxine Sodium 112 MCG 08/26/2019 12:00:00 AM EST active 1 tablet in the morning on an empty stomach eCW1 [facility]) Levothyroxine Sodium 0.112 MG Oral Tablet Levothyroxin e Sodium 112 MCG Levothyroxine Sodium 112 MCG 08/26/2019 12:00:00 AM EST active Levothyroxine Sodium 112 MCG eCW1 [facility]) Levothyroxine Sodium 0.112 MG Oral Tablet Levothyroxin e Sodium 112 MCG Levothyroxine Sodium 112 MCG 08/26/2019 12:00:00 AM EST active Levothyroxine Sodium 112 MCG eCW1 [facility]) Albuterol 0.83 MG/ML Inhalant Solution Albuterol Sulfa te (2.5 MG/3ML) 0.083% Albuterol Sulfate (2.5 MG/3ML) 0.083% 08/26/2019 12:00:00 AM EST active 3 ml as needed [facility]CW[facility] Insurance Providers Payer name Policy type / Coverage type Policy ID Covered democrat ID Covered democrat's relationship to cai Policy Cai Plan Information MEDICARE [id number] SP [id number] [place] 09590 [id number] SP [id number] BLUE CROSS BLUE SHIELD -RECURRING [id number] MEDICARE PART A -RECURRING [id number] 18 [id number] [place] 090/590 [id number] SP [id number] EXCELLUS BCBS B [id number] S [id number] MEDICARE C [id number] S [id number] J23 [place] 090/590 [id number] SP [id number] MEDICARE [id number] SP [id number] J23 Problems, Conditions, and Diagnoses Code Display Name Description Problem Type Effective Dates Data Source(s) C44.91 [id number] Basal cell carcinoma (BCC), unspecified s ite Problem 09/22/2020 12:00:00 AM EST [facility]CW1 [facility]) N18.9 [id number] Chronic kidney disease, unspecified CKD s tage Problem 08/22/2020 12:00:00 AM EST eCW1 [facility]) L40.8 [id number] Sebopsoriasis Problem 07/08/2020 12:00:00 AM EDT eCW1 [facility]) E11.9 [id number] Type 2 diabetes darryl itus without complication, without long-term current use of insulin Problem 03/28/2020 12:00:00 AM EDT eCW1 ([facility]) [id number] Type 2 diabetes mellitus Type 2 diabetes mellitus Prob tash 02/03/2020 12:00:00 AM EDT MEDENT ([facility] ) [id number] Essential hypertension Essential hypertension Problem 02/03/2020 12:00:00 AM EDT MEDENT ([facility] ) [id number] Type 2 diabetes mellitus Type 2 diabetes mellitus Prob tash 02/03/2020 12:00:00 AM EDT MEDENT ([facility] ) G25.81 Restless legs Restless leg Problem 12/23/2019 12:00:00 AM EDT eCW1 [facility]) G25.81 Restless legs Restless leg Problem 12/23/2019 12:00:00 AM EDT eCW1 [facility]) F41.9 [id number] Anxiety Problem 11/19/2019 12:00:00 AM ES T eCW1 ([facility]) F41.9 [id number] Anxiety Problem 11/19/2019 12:00:00 AM ES T eCW1 ([facility]) Corns and callosities Corns and callosities Problem 10/17/2019 12:00:00 AM EST MEDENT ([facility] [id number] Onychomycosis Onychomycosis Problem 10/17/2019 12:00:00 AM EST [facility] ([facility] 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 Problem 10/17/2019 12:00:00 AM EST MED ENT ([facility] [id number] Pronation Pronation Problem 10/17/2019 12:00:00 AM ES T MEDENT ([facility] H40.9 53938777 Glaucoma, unspecified glaucoma t ype, unspecified laterality Problem 09/30/2019 12:00:00 AM EST eCW1 ([facility]) H35.30 [id number] Macular degeneration, unspecifie d laterality, unspecified type Problem 09/30/2019 12:00:00 AM EST eCW1 ([facility]) H40.9 46849919 Glaucoma, unspecified glaucoma t ype, unspecified laterality Problem 09/30/2019 12:00:00 AM EST eCW1 ([facility]) H35.30 418081039 Macular degeneration, unspecifie d laterality, unspecified type Problem 09/30/2019 12:00:00 AM EST eCW1 ([facility]) G89.29 07617403 Other chronic pain Problem 09/10/2019 12:00: 00 AM EST eCW1 [facility]) G89.29 18014240 Other chronic pain Problem 09/10/2019 12:00: 00 AM EST eCW1 ([facility]) N39.46 Mixed incontinence Mixed stress and urge urinary incon tinence Problem 09/02/2019 12:00:00 AM EST eCW1 [facility]) N39.46 Mixed incontinence Mixed stress and urge urinary incon tinence Problem 09/02/2019 12:00:00 AM EST eCW1 [facility]) N13.9 5295788 Urinary (tract) obstruction Problem 08/27/20 19 12:00:00 AM EST eCW1 [facility]) Z85.51 [id number] History of bladder cancer Problem 08/27/2019 12:00:00 AM EST eCW1 ([facility]) Z85.51 621374764 History of bladder cancer Problem 08/27/2019 12:00:00 AM EST eCW1 [facility]) N13.9 5003522 Urinary (tract) obstruction Problem 08/27/20 12:00:00 AM EST eCW1 [facility]) E03.9 39567674 Hypothyroidism, unspecified type Problem 08/26/2019 12:00:00 AM EST eCW1 [facility]) E03.9 93975691 Hypothyroidism, unspecified type Problem 08/26/2019 12:00:00 AM EST eCW1 ([facility]) [id number] Other spondylosis, lumbar region Other spondylos is, lumbar region Diagnosis 08/30/2020 01:42:00 PM [facility] 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, lumbar region Other intervertebral disc degeneration, lumbar region Diagnosis 08/30/2020 01:42:00 PM [facility] Surgeries/Procedures Procedure Description Date Indications Data Source(s) PARING/CUTTING BENIGN HYPERKERATOTIC LESION 1 08/29/20 20 12:00:00 AM EST MED[facility] ([facility] DEBRIDEMENT NAIL ANY METHOD 6/> 08/29/2020 12:00:00 AM EST [facility] ([facility] Immunization: Flublok Quadrivalent (18 years & older) 0.5mL IM (Influenza) 08/22/2020 12:00:00 AM EST eCW1 ([facility]) PARING/CUTTING BENIGN HYPERKERATOTIC LESION 2-4 2019 12:00:00 AM EDT MED[facility] ([facility] DEBRIDEMENT NAIL ANY METHOD 6/> 04/25/2020 12:00:00 AM EDT [facility] ([facility] RADEX SPINE CRV COMPL W/OBLQ&FLEX&/XTN STDS 02/02/2020 12:00:00 AM EDT MEDENT ([facility]) X-Ray Spine Lumbosacral Complete Inc Bending Views Min Of 6 02/02/2020 12:00:00 AM EDT MED[facility] ([facility]) PHYSICIAN TELEPHONE EVALUATION 11-20 MIN 12/23/2019 12 :00:00 AM EDT eCW[facility] Office Visit, Est Pt., Level 2 FC 11/19/2019 12:00:00 AM EST eCW1 ([facility]) Office Visit, Est Pt., Level 4 PC 11/19/2019 12:00:00 AM EST eCW1 [facility]) Medicare, Tricare, [place], PC-INTERPRETATION AND REPORT 10/20/2019 12:00:00 AM EST eCW1 ([facility]) Medicare, Tricare, [place], FC-ELECTROCARDIOGRAM, TRACING ON LY 10/20/2019 12:00:00 AM EST eCW1 ([facility]) CYSTOSCOPY 10/14/2019 12:00:00 AM EST e CW1 [facility]) Results ID Date Data Source [id number] 06/23/2020 12:00:00 AM EDT eCW1 ([facility]) Name Value Range Interpretation Code Description Data Nuria rce(s) Supporting Document(s) MICROALBUMIN RANDOM eCW1 ([facility]) UR MICROALBUMIN eCW1 ([facility]) CREATININE URINE eCW1 ([facility]) ABELARDO/CREAT RATIO eCW1 ([facility]) ID Date Data Source CREATININE,RANDOM URINE 06/23/2020 12:00:00 AM EDT eCW1 ([facility]) Name Value Range Interpretation Code Description Data Nuria rce(s) Supporting Document(s) CREATININE,RANDOM URINE eCW1 ( [facility]) ID Date Data Source TSH 06/23/2020 12:00:00 AM EDT eCW1 ([facility]) Name Value Range Interpretation Code Description Data Nuria rce(s) Supporting Document(s) 6.440 0.358-3.740 THYROID STIMULATING HORM ONE eCW1 ([facility]) ID Date Data Source LIPID PANEL (CARDIAC RISK) 06/23/2020 12:00:00 AM EDT eCW1 ( [facility]) Name Value Range Interpretation Code Description Data Nuria rce(s) Supporting Document(s) 113 NON-HDL-C eCW1 ([facility]) Cholesterol in HDL [Moles/volume] in Serum or Plasma 59 >40 HDL CHOLESTEROL eCW1 ([facility]) Cholesterol in LDL [Mass/volume] in Serum or Plasma by calculation 99 <100 LDL CHOLESTEROL eCW1 ([facility]) Triglyceride [Mass/volume] in Serum or Plasma by calculation 69 <150 TRIGLYCERIDES LEVEL eCW1 ([facility]) Cholesterol [Moles/volume] in Serum or Plasma 172 <200 CHOLESTEROL LEVEL eCW1 ([facility]) 2.915 <5 CHOLESTEROL RISK RATIO eCW1 ([facility]) ID Date Data Source [id number] 06/23/2020 12:00:00 AM EDT eCW1 ([facility]) Name Value Range Interpretation Code Description Data Nuria rce(s) Supporting Document(s) Hemoglobin A1c/Hemoglobin.total in Blood 7.4 HEMOGLOBIN A1c eCW1 ([facility]) ID Date Data Source CBC with Differential 06/23/2020 12:00:00 AM EDT eCW1 ([facility]) Name Value Range Interpretation Code Description Data Nuria rce(s) Supporting Document(s) 4.49 4.00-5.40 RED BLOOD COUNT eCW1 ([facility]) 10.8 4.0-10.0 WHITE BLOOD COUNT eCW1 ([facility]) 13.0 12.0-15.5 HEMOGLOBIN eCW1 ([facility]) 44.3 36.0-47.0 HEMATOCRIT eCW1 ([facility]) 15.0 11.5-14.5 RED CELL DISTRIBUTION WID TH eCW1 ([facility]) 98.7 80.0-96.0 MEAN CORPUSCULAR VOLUME e CW1 ([facility]) 29.3 32.0-36.5 MEAN CORPUSCULAR HGB CONC eCW1 ([facility]) 29.0 27.0-33.0 MEAN CORPUSCULAR HEMOGLOB IN eCW1 ([facility]) 5.9 0.0-5.0 MONO % eCW1 ([facility]) 66.9 36.0-66.0 NEUTROPHILS % eCW1 ([facility]) 23.2 24.0-44.0 LYMPH % eCW1 ([facility]) 181 150-450 PLATELET COUNT, AUTOMATED eCW1 ([facility]) 7.2 1.5-8.5 NEUTROPHILS # eCW1 ([facility]) 0.5 0.0-1.0 BASO % eCW1 ([facility]) 3.0 0.0-3.0 EOS % eCW1 ([facility]) 2.5 1.5-5.0 LYMPH # eCW1 ([facility]) 0.1 0.0-0.2 BASO # eCW1 ([facility]) 0.6 0.0-0.8 MONO # eCW1 ([facility]) 0.3 0.0-0.5 EOS # eCW1 ([facility]) ID Date Data Source Basic Metabolic Profile (BMP) 06/23/2020 12:00:00 AM EDT eCW 1 ([facility]) Name Value Range Interpretation Code Description Data Nuria rce(s) Supporting Document(s) 89 70-100 GLUCOSE, FASTING eCW1 ([facility]) 35.8 >39 GLOMERULAR FILTRATION RATE eCW 1 ([facility]) 141 136-145 SODIUM LEVEL eCW1 ([facility]) 1.50 0.55-1.30 CREATININE FOR GFR eCW1 ([facility]) 29 7-18 BLOOD UREA NITROGEN eCW1 ([facility]) 101 98-107 CHLORIDE LEVEL eCW1 ([facility]) 4.4 3.5-5.1 POTASSIUM SERUM eCW1 ([facility]) 36 21-32 CARBON DIOXIDE LEVEL eCW1 ([facility]) 8.4 8.8-10.2 CALCIUM LEVEL eCW1 ([facility]) ID Date Data Source [id number] 06/07/2020 12:00:00 AM EDT [facility] Wu Craig MD Patient Name: DANIELA SAXENA [id number] [facility] Date of : 1940[place] [address] Date of Exam: 06/07/2020#: Fax: [phone] EXAM: MRI LUMBAR SPINE WITHOUT CONTRASTCLINICAL INFORMATION: Spondylosis in the lumbar region. Low back pain. COMPARISON: MRI study from 04/29/2020.TECHNIQUE:3T multiplanar MRI imaging of the lumbar spine was obtained using varioussequences.MRI FINDINGS:There is a wedge compression fracture deformity again noted at the [id number] body level, unchanged. There is approximately 40% [...] deformity at L1, also unchanged.Accredited by the [employer] in MR.IZZY Meeks/jmcThank you for referring DANIELA SAXENA to our office. Electronically Signed - ANNALEE VICKERS MD 06/09/20 16:20 Name Value Range Interpretation Code Description Data Nuria rce(s) Supporting Document(s) ID Date Data Source [id number] 04/29/2020 12:00:00 AM EDT [facility] Wu Craig MD Patient Name: KENISHA SAXENA [facility] 1940[facility] [address] Date of Exam: 04/29/2020#: Fax: [phone] EXAM: [...] Disease Comprehensive 09/10/2019 12:00:00 AM EST eCW1 [facility] Name Value Range Interpretation Code Description Data Nuria rce(s) Supporting Document(s) Gliadin IgA Ab [Units/volume] in Serum by Immunoassay 6 0-19 DEAMIDATED GLIADIN ABS, IgA eCW1 ([facility]) Gliadin IgG Ab [Units/volume] in Serum by Immunoassay 3 0-19 DEAMIDATED GLIADIN ABS, IgG eCW1 ([facility]) Tissue transglutaminase IgA Ab [Units/volume] in Serum <2 0-3 t- TRANSGLUTAMINASE(tTG) IgA eCW1 ([facility]) Endomysium IgA Ab [Presence] in Serum Negative Negative ENDOMYSIAL ANTIBODY IgA eCW1 ([facility]) IgA [Mass/volume] in Serum or Plasma 268 64-422 IMMUNOGLOBULIN A eCW1 ([facility]) Tissue transglutaminase IgG Ab [Units/volume] in Serum <2 0-5 t- TRANSGLUTAMINASE(tTG) IgG eCW1 ([facility]) ID Date Data Source NON EXTENSION SERVICE ADVISOR CYTOLOGY REQ FOR SERVI 09/02/2019 12:00:00 AM EST eC W1 ([facility]) Name Value Range Interpretation Code Description Data Nuria rce(s) Supporting Document(s) URINE eCW1 ([facility]) Procedure Social History Code Duration Value Status Description Data Source(s ) Smoking 08/22/2020 12:00:00 AM EST Current Smoker completed Curre nt Smoker eCW1 ([facility]) Smoking 08/22/2020 12:00:00 AM EST Current Smoker completed Curre nt Smoker eCW1 ([facility]) Smoking 08/22/2020 12:00:00 AM EST Current Smoker completed Curre nt Smoker eCW1 ([facility]) Smoking 08/22/2020 12:00:00 AM EST Current Smoker completed Curre nt Smoker eCW1 ([facility]) Smoking 08/22/2020 12:00:00 AM EST Current Smoker completed Curre nt Smoker eCW1 ([facility]) Smoking 08/22/2020 12:00:00 AM EST Current Smoker completed Curre nt Smoker eCW1 ([facility]) Smoking 08/22/2020 12:00:00 AM EST Current Smoker completed Curre nt Smoker eCW1 ([facility]) Smoking 08/22/2020 12:00:00 AM EST Current Smoker completed Curre nt Smoker eCW1 ([facility]) Smoking 07/08/2020 12:00:00 AM EDT Current Smoker completed Curre nt Smoker eCW1 ([facility]) Smoking 07/08/2020 12:00:00 AM EDT Current Smoker completed Curre nt Smoker eCW1 ([facility]) Smoking 07/08/2020 12:00:00 AM EDT Current Smoker completed Curre nt Smoker eCW1 ([facility]) Smoking 07/08/2020 12:00:00 AM EDT Current Smoker completed Curre nt Smoker eCW1 ([facility]) Smoking 06/15/2020 12:00:00 AM EDT Former Smoker completed Former Smoker eCW1 ([facility]) Smoking 06/15/2020 12:00:00 AM EDT Former Smoker completed Former Smoker eCW1 ([facility]) Smoking 06/15/2020 12:00:00 AM EDT Former Smoker completed Former Smoker eCW1 ([facility]) Smoking 06/15/2020 12:00:00 AM EDT Former Smoker completed Former Smoker eCW1 ([facility]) Smoking 03/28/2020 12:00:00 AM EDT Former Smoker completed Former Smoker eCW1 ([facility]) Smoking 03/28/2020 12:00:00 AM EDT Former Smoker completed Former Smoker eCW1 ([facility]) Smoking 02/12/2020 12:00:00 AM EDT Former Smoker completed Former Smoker eCW1 ([facility]) Vital Signs ID Date Data Source UNK Name Value Range Interpretation Code Description Data Source(s) Diastolic blood pressure 77 mm[Hg] 77 mm[Hg] eCW1 ([facility]) Systolic blood pressure 142 mm[Hg] 142 mm[Hg] e CW1 ([facility]) Body temperature 97.8 [degF] 97.8 [degF] eCW1 ( [facility]) Respiratory rate 18 /min 18 /min eCW1 ([facility]) Heart rate 72 /min 72 /min eCW1 ([facility]) Body mass index (BMI) [Ratio] 37.64 kg/m2 37.64 kg/m2 W1 ([facility]) Body height 60.5 [in_i] 60.5 [in_i] eCW1 ([facility]) Body weight 196 [lb_av] 196 [lb_av] eCW1 ([facility]) Diastolic blood pressure 76 mm[Hg] 76 mm[Hg] eCW1 ([facility]) Systolic blood pressure 122 mm[Hg] 122 mm[Hg] e CW1 ([facility]) Body mass index (BMI) [Ratio] 38.80 kg/m2 38.80 kg/m2 eCW1 ([facility]) Body height 60.5 [in_i] 60.5 [in_i] eCW1 ([facility]) Body weight 202.0 [lb_av] 202.0 [lb_av] eCW1 ([facility]) Diastolic blood pressure 73 mm[Hg] 73 mm[Hg] eCW1 ([facility]) Systolic blood pressure 127 mm[Hg] 127 mm[Hg] e CW1 ([facility]) Body temperature 96.9 [degF] 96.9 [degF] eCW1 ( [facility]) Respiratory rate 18 /min 18 /min eCW1 ([facility]) Heart rate 73 /min 73 /min eCW1 ([facility]) Body mass index (BMI) [Ratio] 38.60 kg/m2 38.60 kg/m2 eCW1 ([facility]) Body height 60.5 [in_i] 60.5 [in_i] eCW1 ([facility]) Body weight 201 [lb_av] 201 [lb_av] eCW1 ([facility]) Body mass index (BMI) [Ratio] 39.1 kg/m2 39.1 k g/m2 MED[facility] ([facility] Heart rate 64 /min 64 /min MED[facility] ([facility] Diastolic blood pressure 60 mm[Hg] 60 mm[Hg] [facility] ([facility] Systolic blood pressure 124 mm[Hg] 124 mm[Hg] M EDENT ([facility] Body weight 200.00 [lb_av] 200.00 [lb_av] MEDEN T ([facility] Body height 60 [in_i] 60 [in_i] MEDENT ([facility] 5'0" Diastolic blood pressure 78 mm[Hg] 78 mm[Hg] eCW1 [facility]) Systolic blood pressure 137 mm[Hg] 137 mm[Hg] e CW1 ([facility]) Body temperature 96.9 [degF] 96.9 [degF] eCW1 ( [facility]) Respiratory rate 18 /min 18 /min eCW1 ([facility]) Heart rate 65 /min 65 /min eCW1 ([facility]) Body mass index (BMI) [Ratio] 37.84 kg/m2 37.84 kg/m2 eCW1 ([facility]) Body height 60.5 [in_i] 60.5 [in_i] eCW1 ([facility]) Body weight 197 [lb_av] 197 [lb_av] eCW1 ([facility]) Diastolic blood pressure 70 mm[Hg] 70 mm[Hg] eCW1 ([facility]) Systolic blood pressure 121 mm[Hg] 121 mm[Hg] e CW1 ([facility]) Body temperature 100.1 [degF] 100.1 [degF] eCW1 ([facility]) Respiratory rate 18 /min 18 /min eCW1 ([facility]) Heart rate 68 /min 68 /min eCW1 ([facility]) Body mass index (BMI) [Ratio] 38.03 kg/m2 38.03 kg/m2 eCW1 ([facility]) Body height 60.5 [in_i] 60.5 [in_i] eCW1 ([facility]) Body weight 198 [lb_av] 198 [lb_av] eCW1 ([facility]) Body mass index (BMI) [Ratio] 39.8 kg/m2 39.8 k g/m2 MEDENT ([facility]) Body weight 195.38 [lb_av] 195.38 [lb_av] MEDEN T ([facility] ) Body height 58.75 [in_i] 58.75 [in_i] MEDENT ([facility] 4'10.75" Diastolic blood pressure 57 mm[Hg] 57 mm[Hg] eCW1 ([facility]) Systolic blood pressure 130 mm[Hg] 130 mm[Hg] e CW1 ([facility]) Body temperature 98.7 [degF] 98.7 [degF] eCW1 ( [facility] [facility] Respiratory rate 16 /min 16 /min eCW1 ([facility]) Heart rate 70 /min 70 /min eCW1 ([facility]) Body mass index (BMI) [Ratio] 38.22 kg/m2 38.22 kg/m2 W1 ([facility]) Body height 60.5 [in_us] 60.5 [in_us] eCW1 ([facility]) Body weight Measured 199 [lb_av] 199 [lb_av] eC W1 ([facility]) Body weight 89.813 kg 89.813 kg MEDENT ([facility], ) Body mass index (BMI) [Ratio] 36.2 kg/m2 36.2 k g/m2 MEDENT ([facility], ) Body weight 198.00 [lb_av] 198.00 [lb_av] MEDEN T ([facility], ) Body height 62 [in_i] 62 [in_i] MEDENT ([facility], ) 5'2" Diastolic blood pressure 58 mm[Hg] 58 mm[Hg] MEDENT ([facility], ) Systolic blood pressure 98 mm[Hg] 98 mm[Hg] M EDENT ([facility], ) Diastolic blood pressure 62 mm[Hg] 62 mm[Hg] eCW1 ([facility]) Systolic blood pressure 134 mm[Hg] 134 mm[Hg] e CW1 ([facility]) Body temperature 97.9 [degF] 97.9 [degF] eCW1 ( [facility]) Respiratory rate 17 /min 17 /min eCW1 ([facility]) Heart rate 79 /min 79 /min eCW1 ([facility]) Body mass index (BMI) [Ratio] 37.87 kg/m2 37.87 kg/m2 eCW1 ([facility]) Body height 60.5 [in_us] 60.5 [in_us] eCW1 ([facility]) Body weight Measured 197.2 [lb_av] 197.2 [lb_av ] eCW1 ([facility]) Diastolic blood pressure 64 mm[Hg] 64 mm[Hg] eCW1 ([facility]) Systolic blood pressure 118 mm[Hg] 118 mm[Hg] e CW1 ([facility]) Body temperature 96.6 [degF] 96.6 [degF] eCW1 ( [facility]) Respiratory rate 18 /min 18 /min eCW1 ([facility]) Heart rate 82 /min 82 /min eCW1 ([facility]) Body mass index (BMI) [Ratio] 37.15 kg/m2 37.15 kg/m2 eCW1 ([facility]) Body height 60.5 [in_us] 60.5 [in_us] eCW1 ([facility]) Body weight Measured 193.4 [lb_av] 193.4 [lb_av ] eCW1 ([facility]) Diastolic blood pressure 60 mm[Hg] 60 mm[Hg] [...] blood pressure 74 mm[Hg] 74 mm[Hg] eCW1 ([facility]) Systolic blood pressure 173 mm[Hg] 173 mm[Hg] e CW1 ([facility]) Body temperature 98.1 [degF] 98.1 [degF] eCW1 ( [facility]) Respiratory rate 18 /min 18 /min eCW1 ([facility]) Heart rate 65 /min 65 /min eCW1 ([facility]) Body mass index (BMI) [Ratio] 37.91 kg/m2 37.91 kg/m2 W1 ([facility]) Body height 60.5 [in_us] 60.5 [in_us] eCW1 ([facility]) Body weight Measured 197.4 [lb_av] 197.4 [lb_av ] eCW1 ([facility]) Diastolic blood pressure 51 mm[Hg] 51 mm[Hg] eCW1 ([facility]) Systolic blood pressure 103 mm[Hg] 103 mm[Hg] e CW1 ([facility]) Body temperature 97.5 [degF] 97.5 [degF] eCW1 ( [facility]) Respiratory rate 18 /min 18 /min eCW1 ([facility]) Heart rate 68 /min 68 /min eCW1 ([facility]) Body mass index (BMI) [Ratio] 37.07 kg/m2 37.07 kg/m2 eCW1 ([facility]) Body height 60.5 [in_us] 60.5 [in_us] eCW1 ([facility]) Body weight Measured [lb_av] eCW1 ([facility]) Diastolic blood pressure 68 mm[Hg] 68 mm[Hg] eCW1 ([facility]) Systolic blood pressure 136 mm[Hg] 136 mm[Hg] e CW1 ([facility]) Body temperature 96.0 [degF] 96.0 [degF] eCW1 ( [facility]) Respiratory rate 18 /min 18 /min eCW1 ([facility]) Heart rate 72 /min 72 /min eCW1 ([facility]) Body mass index (BMI) [Ratio] 37.76 kg/m2 37.76 kg/m2 eCW1 ([facility]) Body height 60.5 [in_us] 60.5 [in_us] eCW1 ([facility]) Body weight Measured 196.6 [lb_av] 196.6 [lb_av ] eCW1 ([facility]) Diastolic blood pressure 86 mm[Hg] 86 mm[Hg] eCW1 ([facility]) Systolic blood pressure 193 mm[Hg] 193 mm[Hg] e CW1 ([facility]) Body temperature 96.1 [degF] 96.1 [degF] eCW1 ( [facility]) Respiratory rate 17 /min 17 /min eCW1 ([facility]) Heart rate 77 /min 77 /min eCW1 ([facility]) Body mass index (BMI) [Ratio] 37.41 kg/m2 37.41 kg/m2 eCW1 ([facility]) Body height 60.5 [in_us] 60.5 [in_us] eCW1 ([facility]) Body weight Measured 194.8 [lb_av] 194.8 [lb_av ] eCW1 [facility]) Patient Treatment Plan of Care Planned Activity Planned Date Details Description Data Source (s) FreeStyle Vero 14 Day Sensor - 09/19/2020 12:00:00 AM EST eCW1 ([facility]) FreeStyle Vero 14 Day Sensor - 09/19/2020 12:00:00 AM EST eCW1 ([facility]) FreeStyle Vero 14 Day Sensor - 09/19/2020 12:00:00 AM EST eCW1 ([facility]) Alprazolam 1 MG Oral Tablet [Xanax] 08/22/2020 12:00:00 AM EST eCW1 ([facility]) Alprazolam 1 MG Oral Tablet [Xanax] 08/22/2020 12:00:00 AM EST eCW1 ([facility]) Alprazolam 1 MG Oral Tablet [Xanax] 08/22/2020 12:00:00 AM EST eCW1 ([facility]) Alprazolam 1 MG Oral Tablet [Xanax] 08/22/2020 12:00:00 AM EST eCW1 ([facility]) Alprazolam 1 MG Oral Tablet [Xanax] 08/22/2020 12:00:00 AM EST eCW1 ([facility]) Alprazolam 1 MG Oral Tablet [Xanax] 08/22/2020 12:00:00 AM EST eCW1 ([facility]) Alprazolam 1 MG Oral Tablet [Xanax] 08/22/2020 12:00:00 AM EST eCW1 ([facility]) Alprazolam 1 MG Oral Tablet [Xanax] 08/22/2020 12:00:00 AM EST eCW1 ([facility]) Levothyroxine Sodium 0.125 MG Oral Tablet 06/27/2020 12:00:00 AM ED T eCW1 ([facility]) Levothyroxine Sodium 0.125 MG Oral Tablet 06/27/2020 12:00:00 AM ED T eCW1 ([facility]) Levothyroxine Sodium 0.125 MG Oral Tablet 06/27/2020 12:00:00 AM ED T eCW1 ([facility]) Levothyroxine Sodium 0.125 MG Oral Tablet 06/27/2020 12:00:00 AM ED T eCW1 ([facility]) Levothyroxine Sodium 0.125 MG Oral Tablet 06/27/2020 12:00:00 AM ED T eCW1 ([facility]) Levothyroxine Sodium 0.125 MG Oral Tablet 06/27/2020 12:00:00 AM ED T eCW1 ([facility]) Levothyroxine Sodium 0.125 MG Oral Tablet 06/27/2020 12:00:00 AM ED T eCW1 ([facility]) Levothyroxine Sodium 0.125 MG Oral Tablet 06/27/2020 12:00:00 AM ED T eCW1 ([facility]) Levothyroxine Sodium 0.125 MG Oral Tablet 06/27/2020 12:00:00 AM ED T eCW1 ([facility]) Levothyroxine Sodium 0.125 MG Oral Tablet 06/27/2020 12:00:00 AM ED T eCW1 ([facility]) Levothyroxine Sodium 0.125 MG Oral Tablet 06/27/2020 12:00:00 AM ED T eCW1 ([facility]) FreeStyle Vero [place] - 06/15/2020 12:00:00 AM EDT eCW1 ([facility]) FreeStyle Vero [place] - 06/15/2020 12:00:00 AM EDT eCW1 ([facility]) FreeStyle Vero [place] - 06/15/2020 12:00:00 AM EDT eCW1 ([facility]) FreeStyle Vero [place] - 06/15/2020 12:00:00 AM EDT eCW1 ([facility]) gabapentin 100 MG Oral Capsule 03/28/2020 12:00:00 AM EDT eCW1 ([facility]) gabapentin 100 MG Oral Capsule 03/28/2020 12:00:00 AM EDT eCW1 ([facility]) OneTouch Ultra Test - 12/23/2019 12:00:00 AM EDT eCW1 ([facility]) OneTouch UltraSoft Lancets - 12/23/2019 12:00:00 AM EDT eCW1 ([facility]) OneTouch Ultra Test - 12/23/2019 12:00:00 AM EDT eCW1 ([facility]) OneTouch Ultra Test - 12/23/2019 12:00:00 AM EDT eCW1 ([facility]) 0.5 ML dulaglutide 1.5 MG/ML Auto-Injector [Trulicity] 11/20/2019 12:00:00 AM EST eCW1 ([facility]) Chlorthalidone 25 MG Oral Tablet 09/30/2019 12:00:00 AM EST eCW1 ([facility]) Chlorthalidone 25 MG Oral Tablet 09/30/2019 12:00:00 AM EST eCW1 ([facility]) Chlorthalidone 25 MG Oral Tablet 09/30/2019 12:00:00 AM EST eCW1 ([facility]) Chlorthalidone 25 MG Oral Tablet 09/30/2019 12:00:00 AM EST eCW1 ([facility]) Chlorthalidone 25 MG Oral Tablet 09/30/2019 12:00:00 AM EST eCW1 ([facility]) Chlorthalidone 25 MG Oral Tablet 09/30/2019 12:00:00 AM EST eCW1 ([facility]) Chlorthalidone 25 MG Oral Tablet 09/30/2019 12:00:00 AM EST eCW1 ([facility]) Chlorthalidone 25 MG Oral Tablet 09/30/2019 12:00:00 AM EST eCW1 ([facility]) Chlorthalidone 25 MG Oral Tablet 09/30/2019 12:00:00 AM EST eCW1 ([facility]) Chlorthalidone 25 MG Oral Tablet 09/30/2019 12:00:00 AM EST eCW1 ([facility]) Chlorthalidone 25 MG Oral Tablet 09/30/2019 12:00:00 AM EST eCW1 ([facility]) Chlorthalidone 25 MG 09/30/2019 12:00:00 AM EST eCW1 ([facility]) Losartan Potassium 25 MG Oral Tablet 09/10/2019 12:00:00 AM EST eCW1 ([facility]) Losartan Potassium 25 MG Oral Tablet 09/10/2019 12:00:00 AM EST eCW1 ([facility]) Losartan Potassium 25 MG Oral Tablet 09/10/2019 12:00:00 AM EST eCW1 ([facility]) Losartan Potassium 25 MG Oral Tablet 09/10/2019 12:00:00 AM EST eCW1 ([facility]) Losartan Potassium 25 MG Oral Tablet 09/10/2019 12:00:00 AM EST eCW1 ([facility]) Losartan Potassium 25 MG Oral Tablet 09/10/2019 12:00:00 AM EST eCW1 ([facility]) Losartan Potassium 25 MG Oral Tablet 09/10/2019 12:00:00 AM EST eCW1 ([facility]) Losartan Potassium 25 MG Oral Tablet 09/10/2019 12:00:00 AM EST eCW1 ([facility]) Losartan Potassium 25 MG 09/10/2019 12:00:00 AM EST eCW1 ([facility]) Loperamide Hydrochloride 2 MG Oral Capsule 09/10/2019 12:00:[address] eCW1 ([facility]) Losartan Potassium 25 MG Oral Tablet 09/10/2019 12:00:00 AM EST eCW1 ([facility]) Levothyroxine Sodium 0.112 MG Oral Tablet 08/26/2019 12:00:00 AM ES T eCW1 ([facility]) Levothyroxine Sodium 0.112 MG Oral Tablet 08/26/2019 12:00:00 AM ES T eCW1 ([facility]) Levothyroxine Sodium 0.112 MG Oral Tablet 08/26/2019 12:00:00 AM ES T eCW1 ([facility]) Nebulizer - 08/26/2019 12:00:00 AM EST e CW1 ([facility]) Levothyroxine Sodium 0.112 MG Oral Tablet 08/26/2019 12:00:00 AM ES T eCW1 ([facility]) Nebulizer - 08/26/2019 12:00:00 AM EST e CW1 ([facility]) Levothyroxine Sodium 0.112 MG Oral Tablet 08/26/2019 12:00:00 AM ES T eCW1 ([facility]) Levothyroxine Sodium 0.112 MG Oral Tablet 08/26/2019 12:00:00 AM ES T eCW1 ([facility]) Umeclidinium [place] 62.5 MCG/INH 08/26/2019 12:00:00 AM EST eCW1 ([facility]) Albuterol 0.83 MG/ML Inhalant Solution 08/26/2019 12:00:00 AM EST eCW1 ([facility]) Nebulizer - 08/26/2019 12:00:00 AM EST e CW1 ([facility])
--- NOTE | 2020-10-01 15:26 | REP ---
INDICATION: CVA COMPARISON: None. TECHNIQUE: Real-time ultrasound evaluation and duplex Doppler interrogation of the extracranial carotid vasculature is performed. FINDINGS: There is moderate diffuse plaquing bilaterally. There is significant stenosis of the right internal carotid artery. There is also significant stenosis of the left internal carotid artery, to a lesser extent. The stenosis of the right internal carotid artery is in the upper aspect of the 60-79% range. Stenosis of the left internal carotid artery is at the lower aspect of that range. There is normal direction of flow in both vertebral arteries. RIGHT LEFT Peak systolic velocity ICA 319 cm/s 167 cm/s End diastolic velocity ICA 86.6 cm/s 53.5 cm/s Peak systolic velocity CCA 73.9 cm/s 77.6cm/s Peak systolic velocity ECA 92.6 cm/s 152 cm/s ICA/CCA ratio 4.32 2.15 IMPRESSION: Moderate diffuse plaquing bilaterally. Bilateral stenosis of the internal carotid arteries 60-79%, the stenosis of the right internal carotid artery is at the upper aspect of that range and left internal carotid artery at the lower aspect of that range. <Electronically signed by Alonzo Amos > 10/01/20 [id number]
--- NOTE | 2020-10-01 15:45 | HPEPDOC ---
[facility] Medical History & Physical Date of Admission Oct 01, 2020 Date of Service: Oct 01, 2020 Attending Physician: Renetta Ghosh MD History and Physical CHIEF COMPLAINT: left arm weakness, numbness and fall HISTORY OF PRESENT ILLNESS: Patient is a 79-year-old female with past medical history of diabetes mellitus type 2, hypertension, hyperlipidemia, chronic musculoskeletal pain, fibromyalgia, obstructive sleep apnea, tobacco use disorder, COPD 2 L nasal cannula around the clock, hypothyroidism with history of Graves' disease status post radiation, restless leg syndrome, history of bladder cancer, anxiety who presented to [facility] status post fall and left upper extremity weakness and numbness. The patient states 2 days ago she had diarrhea which resolved on its on and then today she woke up and noticed her left arm was numb and tingling. She described it as "like my arm was not there". She continued with her normal morning routine and had an episode of diarrhea afterwards. 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 She denied chest pain, shortness of breath, nausea, vomiting, lightheadedness, sick contacts recently, dizziness, leg weakness, drooling, drooping of her face, change of her speech, recent antibiotic use, recent hospitalizations in the past 90 days, diet changes. She states she had associated abdominal pain with her diarrhea and the last time she had this was again 2 days ago. She called her son to come over to help her get to bed. On the way to the room she fell and hit her head on the way down. Her son then called 911 and she was brought to the emergency room. In the emergency room vital signs were stable. On exam her left upper extremity was weaker 4/5 strength, she was able to lift her left arm above her head without issues. She had no obvious sensory deficits but was not able to make a complete fist with her left upper ext. CT head neg. She had mild WBC elevation, Cr incr at 1.46 (appears to be baseline since 06/2020), trop neg, BS 223. CXR neg, ECG showed LBBB (old) and otherwise similar to prior on file. Due to persistent numbness, tingling and weakness of LUE, patient was admitted to r/o CVA. REVIEW OF SYSTEMS: Neg except mentioned above PAST MEDICAL HISTORY: HTN HLD COPD on 2 L NC (not always compliant at home) GERALD Tobacco use Hx of Graves disease s/p radiation, now hypothyroid on synthroid Hx of bladder cancer Anxiety RLS DM type II Chronic pain Fibromyalgia Tobacco use PAST SURGICAL HISTORY: Neck/thyroid radiation treatments Cholecystectomy Bladder stent Back surgery Bilateral foot bunionectomy Right toe surgery Bilateral carpal tunnel surgery Bilateral cataract cystoscopy 10/14/19 FAMILY HISTORY: Father: Mother: SOCIAL HISTORY: Smoker, 5 cig/day but used to smoke more. Smoker for 64 years. Denies alcohol or drug use. Has walker she uses when she goes out, walks longer distances. CPR but no intubation. ALLERGIES: Please see below. HOME MEDICATIONS: Please see below. PHYSICAL EXAMINATION: VS: Please see below CONSTITUTIONAL: No acute distress, resting comfortably, AAO x 3 EYES: PERRLA, EOM intact HENT, MOUTH: Normocephalic, atraumatic, moist mucous membranes, NECK: SUPPLE, no JVD, no lymphadenopathy, no carotid bruit CV: Regular rate and rhythm, S1S2 normal, no murmurs/rubs/gallops RESPIRATORY: Clear to auscultation bilaterally, no rales/rhonchi/wheezes GI: BS positive in 4 quadrants, soft, nontender, nondistended, no rebound or guarding, no organomegaly : Deferred MUSCULOSKELETAL: Normal ROM. No cyanosis, clubbing, swelling, joint deformity, extremity edema INTEGUMENTARY: Skin tear with scabbed wound on left dorsum of hand. Otherwise intact, no rashes, no lesions, no erythema NEUROLOGIC: Cranial Nerves II-XII are intact, LUE weakness 4/5, some sensory and motor deficits in this limb only. All other ext 5/5, no motor sensory deficits. Reflexes intact PSYCHIATRIC: Mood and affect are normal LABORATORY DATA: Please see below IMAGING: CT head: neg F/u MRI brain, MRA brain, carotid US and echocardiogram ASSESSMENT: 79-year-old female with past medical history of diabetes mellitus type 2, hypertension, hyperlipidemia, chronic musculoskeletal pain, fibromyalgia, obstructive sleep apnea, tobacco use disorder, COPD 2 L nasal cannula around the clock, hypothyroidism with history of Graves' disease status post radiation, restless leg syndrome, history of bladder cancer, anxiety admitted to r/o CVA. PLAN: Left upper ext weakness r/o CVA -Acute onset, persistent numbness, weakness, sensory loss -Multiple RF, see PMH above -CT head neg -F/u MRI and MRA brain, carotid US, echocardiogram -Lipid panel unremarkable, HbA1c 7.5 -Started on simvastatin 20 mg and ASA 325 mg now, then simvastatin 20 mg and ASA 81 mg PO daily -Neuro checks, tele LALA vs. CKD Stage 2-3 -Cr 1.46, similar to 06/2020 labs -No documented CKD; however, from PCP notes -Started on IVFs at 100 cc/hr, avoid nephrotoxic medications, holding ARB -Daily labs Diarrhea, nonbloody -Sporatic x 2 episodes over past 2 days -States was nonbloody, no new diet changes, no suspicion for infection -C/w diet and IVFs for now, if returns then send for GI panel DM type II -BS 220's, HbA1c7.5 -C/w ISS and FS AC/HS, consistent carb diet HTN -BP stable -Holding losartan and chlorthalidone, c/w BB HLD -Lipid panel unremarkable -Increased statin dose to 20 mg PO daily Chronic respiratory failure 2/2 to COPD, on 2 L NC ATC at home (noncompliant) -Patient admits to not wearing O2 as prescribed -CXR unremarkable GERALD -Can use home CPAP Tobacco use -Nicotine patch Anxiety -C/w home meds RLS -C/w home med Hx of Graves disease s/p radiation, now hypothyroid on synthroid -TSH wnl -C/w synthroid Chronic pain/ Fibromyalgia -C/w home meds DVT px -heparin DISPOSITION: C/w workup above. Plan is PT/OT eval, hopeful for home discharge when medically appropriate. Vital Signs Vital Signs Date Time Temp Pulse Resp B/P (MAP) Pulse Ox O2 Delivery O2 Flow Rate FiO2 10/01/20 13:24 121/56 (77) 10/01/20 13:13 61 18 100 Nasal Cannula 2.0 10/01/20 12:01 97.6 Laboratory Data Labs 24H Laboratory Tests 2 10/01/20 12:46: Immature Granulocyte % (Auto) 0.5, Neutrophils (%) (Auto) 72.5H, Lymphocytes (%) (Auto) 17.4L, Monocytes (%) (Auto) 6.1H, Eosinophils (%) (Auto) 2.9, Basophils (%) (Auto) 0.6, Neutrophils # (Auto) 7.9, Lymphocytes # (Auto) 1.9, Monocytes # (Auto) 0.7, Eosinophils # (Auto) 0.3, Basophils # (Auto) 0.1, Nucleated Red Blood Cells % (auto) 0.0, Prothrombin Time 13.0, Prothromb Time International Ratio 0.96, Activated Partial Thromboplast Time 25.4, Anion Gap 6L, Glomerular Filtration Rate 36.9L, Estimated Mean Plasma Glucose 169H, Hemoglobin A1c 7.5, Calcium Level 8.3L, Total Bilirubin 0.2, Direct Bilirubin < 0.1, Aspartate Amino Transf (AST/SGOT) 12, Alanine Aminotransferase (ALT/SGPT) 22, Alkaline Phosphatase 116, Total Creatine Kinase 46, Creatine Kinase MB 1.0, Creatine Kinase MB Relative Index 2.17, Troponin I < 0.02, Total Protein 6.2L, Albumin 3.0L, Albumin/Globulin Ratio 0.9L, Triglycerides Level 113, Total Cholesterol 157, LDL Cholesterol 84, Non-HDL Cholesterol (LDL + VLDL) 107, Total HDL Cholesterol 50, Cholesterol/HDL Ratio 3.140, Thyroid Stimulating Hormone (TSH) 0.456, Salicylates Level < 1.7L, Acetaminophen Level < 2.0L, Ethyl Alcohol Level < 0.003 10/01/20 13:19: Coronavirus (COVID-19)(PCR) NEGATIVE, Influenza Type A (RT-PCR) NEGATIVE, Influenza Type B (RT-PCR) NEGATIVE, Respiratory Syncytial Virus (PCR) NEGATIVE CBC/BMP Laboratory Tests 10/01/20 12:46 Home Medications Scheduled Carvedilol (Carvedilol) 25 Mg Tablet, 25 MG PO BID Chlorthalidone (Chlorthalidone) 25 Mg Tablet, 25 MG PO DAILY Duloxetine Hcl (Duloxetine HCl) 60 Mg Capsule.dr, 60 MG PO DAILY Gabapentin (Gabapentin) 100 Mg Capsule, 100 MG PO DAILY Levothyroxine Sodium (Synthroid) 125 Mcg Tablet, 125 MCG PO DAILY Losartan Potassium (Losartan Potassium) 25 Mg Tablet, 25 MG PO DAILY Lovastatin (Lovastatin) 10 Mg Tablet, 10 MG PO QPM Ropinirole HCl (Ropinirole HCl) 0.5 Mg Tablet, 1 MG PO QHS Scheduled PRN Alprazolam (Alprazolam) 1 Mg Tablet, 1 TAB PO BID PRN for ANXIETY Loperamide HCl (Loperamide) 2 Mg Capsule, 2 MG PO TIDP PRN for DIARRHEA Miscellaneous Medications [Comments] MED LIST MADE WITH HELP FROM [facility] AND A HEALTH CLINIC VISIT. HEALTH CLINIC VISIT HAS INSULIN BUT [facility] HAS NOT FILLED INSULIN IN MORE THAN A YEAR Allergies Coded Allergies: Penicillins (Verified Allergy, Unknown, 10/01/20) Sulfa (Sulfonamide Antibiotics) (Verified Adverse Reaction, Mild, mouth sores, 10/01/20) A-FIB/CHADSVASC A-FIB History Current/History of A-Fib/PAF?: No Current PO Anticoag Therapy: No Age/Risk Factor Scoring CHADSVASC: CHADSVASC Response (Comments) Value Age Risk Factor Age >/= 75 years old 2 Gender Risk Factor Female 1 Hx of CHF No 0 Hx of HTN Yes 1 Hx of Stroke/TIA/or VTE Yes 2 Hx of Diabetes Yes 1 Hx of Vascular Disease Yes 1 Total 8 Treatment Treatment ordered: Other Other anticoagulant ordered: heparin Renetta Ghosh MD Oct 01, 2020 15:45
[2020-10-01] MEDS ORDERED: SIMVASTATIN 20 MG TAB PO ONE (16:00)
[2020-10-01] MEDS ORDERED: NICOTINE 14 MG/24 HR TRANSDERMAL TD ONE (16:00)
[2020-10-01] MEDS ORDERED: ASPIRIN 325 MG TAB PO ONE (16:00)
[2020-10-01 17:14] VITALS: BP 108/56
[2020-10-01] MEDS: HumaLOG INSULIN (NovoLOG) PER UNIT SC SCH ×2 (17:30→21:00)
[2020-10-01] MEDS: NS 1,000 ML IV SCH (17:56)
[2020-10-01] MEDS ORDERED: SIMVASTATIN 10 MG TAB PO SCH (21:00)
[2020-10-01] MEDS: ALPRAZolam 0.5 MG TAB PO PRN (21:06)
[2020-10-01] MEDS: rOPINIRole 1MG TAB PO SCH (21:06)
[2020-10-01] MEDS: HEPARIN SOD (PORCINE) 5000UNITS/ML 1ML VIAL/SYRINGE SC SCH (21:06)
[2020-10-01] MEDS: CARVedilol 12.5 MG TAB PO SCH (21:11)
[2020-10-01 22:00] VITALS: BP 124/62
[2020-10-01] MEDS ORDERED: rOPINIRole 2MG TAB PO ONE (23:00)
[2020-10-02] MEDS: NS 1,000 ML IV SCH ×2 (03:22→10:30)
[2020-10-02] MEDS: LEVOTHYROXINE 125MCG TABLET (0.125MG) PO SCH (05:48)
[2020-10-02 06:00] VITALS: BP 104/51
[2020-10-02 07:30] LABS: HEMATOCRIT 41.5 % (36.0-47.0); HEMOGLOBIN 12.1 g/dl (12.0-15.5); MEAN CORPUSCULAR HEMOGLOBIN 28.7 pg (27.0-33.0); MEAN CORPUSCULAR HGB CONC 29.2 g/dl (32.0-36.5); MEAN CORPUSCULAR VOLUME 98.3 fl (80.0-96.0); PLATELET COUNT, AUTOMATED 155 10^3/uL (150-450); RED BLOOD COUNT 4.22 10^6/uL (4.00-5.40); WHITE BLOOD COUNT 8.4 10^3/uL (4.0-10.0)
[2020-10-02 07:59] LABS: ALBUMIN 2.7 GM/DL (3.2-5.2); BILIRUBIN,TOTAL 0.2 MG/DL (0.2-1.0); CALCIUM LEVEL 8.2 MG/DL (8.8-10.2); CREATININE FOR GFR 1.2 MG/DL (0.55-1.30); GLOMERULAR FILTRATION RATE 46.3 (>39); POTASSIUM SERUM 4.6 MEQ/L (3.5-5.1); TOTAL PROTEIN 5.6 GM/DL (6.4-8.2)
[2020-10-02] MEDS ORDERED: CHLORTHALIDONE 25 MG TAB PO SCH (09:00)
[2020-10-02] MEDS ORDERED: ASPIRIN 81 MG ENTERIC TAB PO SCH (09:00)
[2020-10-02] MEDS ORDERED: LOSARTAN 25 MG TAB PO SCH (09:00)
[2020-10-02] MEDS: HumaLOG INSULIN (NovoLOG) PER UNIT SC SCH ×4 (10:20→20:44)
[2020-10-02] MEDS: GABAPENTIN 100 MG CAP PO SCH (10:21)
[2020-10-02] MEDS: CARVedilol 12.5 MG TAB PO SCH (10:21)
[2020-10-02] MEDS: DULoxetine 30 MG CAP (CYMBALTA) PO SCH (10:21)
[2020-10-02] MEDS: HEPARIN SOD (PORCINE) 5000UNITS/ML 1ML VIAL/SYRINGE SC SCH ×2 (10:21→20:43)
[2020-10-02 14:00] VITALS: BP 90/51
[2020-10-02 15:02] VITALS: BP 126/56
--- NOTE | 2020-10-02 16:01 | IPNPDOC ---
Date Seen The patient was seen on 10/02/20. Progress Note SUBJECTIVE: Increased LUE weakness, 2/5 from 4/5 on admission. Concern for evolving CVA increased. MRI/MRA unable to be done overnight due to IVC filter placement seen on prior CT. Family was contacted and both them and patient denied history of placement. Discussed with Dr. Amos (radiology) findings of IVC and he indeed confirms its existence on imaging. He states that patient has had MRI's in the past though and will give ok for her to have STAT MRI/MRA today. F/u results. No other neurological deficits, denies chest pain, n/v/d and HD stable. OBJECTIVE: PHYSICAL EXAMINATION: VS: Please see below CONSTITUTIONAL: No acute distress, resting comfortably, AAO x 3 EYES: PERRLA, EOM intact HENT, MOUTH: Normocephalic, atraumatic, moist mucous membranes NECK: SUPPLE, no JVD, no lymphadenopathy, no carotid bruit CV: Regular rate and rhythm, S1S2 normal, no murmurs/rubs/gallops RESPIRATORY: Clear to auscultation bilaterally, no rales/rhonchi/wheezes GI: BS positive in 4 quadrants, soft, nontender, nondistended, no rebound or guarding, no organomegaly : Deferred MUSCULOSKELETAL: Normal ROM. No cyanosis, clubbing, swelling, joint deformity, extremity edema INTEGUMENTARY: Skin tear with scabbed wound on left dorsum of hand. Otherwise intact, no rashes, no lesions, no erythema NEUROLOGIC: Cranial Nerves II-XII are intact, LUE weakness increased from admission 2/5, no sensory deficits . All other ext 5/5, no motor sensory deficits. Reflexes intact PSYCHIATRIC: Mood and affect are normal LABORATORY DATA: Please see below IMAGING: MRI brain, MRA brain STAT F/u STAT CT head CT head: neg Carotid US: Moderate diffuse plaquing bilaterally. Bilateral stenosis of the internal carotid arteries 60-79%, the stenosis of the right internal carotid artery is at the upper aspect of that range and left internal carotid artery at the lower aspect of that range. Echocardiogram done 10/01/20: Results pending ASSESSMENT: 79-year-old female with past medical history of diabetes mellitus type 2, hypertension, hyperlipidemia, chronic musculoskeletal pain, fibromyalgia , obstructive sleep apnea, tobacco use disorder, COPD 2 L nasal cannula around the clock, hypothyroidism with history of Graves' disease status post radiation, restless leg syndrome, history of bladder cancer, anxiety admitted to r/o CVA. PLAN: Left upper ext weakness r/o CVA -Worsened LUE weakness, after discussion with radiology they will go ahead and do MRI/MRA today STAT . No sensory deficits, no other focal deficits -In mean time getting STAT CT head to r/o evolving CVA vs. hemorrhage -Carotid US: b/l stenosis -Echo pending -Lipid panel unremarkable, HbA1c 7.5 -C/w simvastatin 20 mg and ASA 81 mg PO daily. If intracranial stenosis will discuss with Dr. Jaquez who is aware of change in patient's neurological status, likely need high dose ASA daily vs. plavix in addition to ASA. -Stopped BB as BP dropped too low, allow higher BP, c/w IVFs -PT: Required mod-maxA for supine>sit on EOB, modA to prevent L LOB; pt returned to supine with total assist, pt supine in bed with NA present, pts IV leaking, RN aware. Pt will benefit from skilled PT intervention to improve (I) with all functional mobility, and improve strength and balance during acute hospitalization. -Neuro checks, tele Bilateral carotid stenosis -60-79% b/l, official report above -Will consult/discuss with vascular surgery in AM. HTN -BP slightly low today -Holding losartan, chlorthalidone, and now BB -On IVFs LALA vs. CKD Stage 2-3 -Cr 1.2, improving -No documented CKD; however, from PCP notes -C/w IVFs at 100 cc/hr, avoid nephrotoxic medications, holding ARB -Daily labs Diarrhea, nonbloody- resolved -Non since admission -C/w diet and IVFs for now, if returns then send for GI panel DM type II -190-200's BS -HbA1c7.5 -C/w ISS and FS AC/HS, consistent carb diet HLD -Lipid panel unremarkable -C/w simvastatin 20 mg PO daily Chronic respiratory failure 2/2 to COPD, on 2 L NC ATC at home (noncompliant) -Patient admits to not wearing O2 as prescribed -CXR unremarkable GERALD -Can use home CPAP Tobacco use -Nicotine patch Anxiety -C/w home meds RLS -C/w home med Hx of Graves disease s/p radiation, now hypothyroid on synthroid -TSH wnl -C/w synthroid Chronic pain/ Fibromyalgia -C/w home meds DVT px -heparin DISPOSITION: Neurology updated, f/u MRI/MRA above. Plan is PT/OT eval, hopeful for home discharge when medically appropriate. VS, I&O, 24H, Fishbone Vital Signs/I&O Vital Signs Date Time Temp Pulse Resp B/P (MAP) Pulse Ox O2 Delivery O2 Flow Rate FiO2 10/02/20 15:02 126/56 (79) 10/02/20 14:00 99.1 84 17 94 Nasal Cannula 2.0 I&O- Last 24 Hours up to 6 AM 10/02/20 06:00 Intake Total 3440 ml Output Total 0 ml Balance 3440 ml Laboratory Data 24H LABS Laboratory Tests 2 10/01/20 17:53: Bedside Glucose (Misc Panel) 64L 10/01/20 19:51: Bedside Glucose (Misc Panel) 170H 10/01/20 22:35: Bedside Glucose (Misc Panel) 193H 10/02/20 06:02: Nucleated Red Blood Cells % (auto) 0.0, Anion Gap 4L, Glomerular Filtration Rate 46.3, Calcium Level 8.2L, Total Bilirubin 0.2, Aspartate Amino Transf (AST/SGOT) 12, Alanine Aminotransferase (ALT/SGPT) 19, Alkaline Phosphatase 106, Total Protein 5.6L, Albumin 2.7L, Albumin/Globulin Ratio 0.9L 10/02/20 11:20: Bedside Glucose (Misc Panel) 221H CBC/BMP Laboratory Tests 10/02/20 06:02 Current Medications Current Medications Medications (Trade) Dose Ordered Sig/Mandi Route PRN Reason Start Time Stop Time Status Last Admin Dose Admin Acetaminophen (Tylenol Tab) 650 mg Q4H PRN PO PAIN OR FEVER 10/01/20 14:30 Alprazolam (Xanax) 1 mg BID PRN PO ANXIETY 10/01/20 15:15 10/01/20 21:06 Aspirin (Ecotrin) 81 mg QAM PO 10/02/20 09:00 10/02/20 10:21 Carvedilol (COReg) 25 mg BID PO 10/01/20 21:00 10/02/20 10:21 Chlorthalidone (Hygroton) 25 mg DAILY PO 10/02/20 09:00 10/01/20 15:46 DC Dextrose (Dextrose 50%) 25 ml ASDIRECTED PRN IV SEE LABEL COMMENTS 10/01/20 14:30 Duloxetine HCl (Cymbalta) 60 mg DAILY PO 10/02/20 09:00 10/02/20 10:21 Gabapentin (Neurontin) 100 mg DAILY PO 10/02/20 09:00 10/02/20 10:21 Glucagon (Glucagon) 1 mg ASDIRECTED PRN SC SEE LABEL COMMENTS 10/01/20 14:30 Glucose (Glucose) 16 GM ASDIRECTED PRN PO SEE LABEL COMMENTS 10/01/20 14:30 Heparin Sodium (Porcine) (Heparin) 5,000 units Q12H SC 10/01/20 21:00 10/02/20 10:21 Home Med (Med Rec Complete!) ASDIRECTED XX 10/01/20 15:00 10/01/20 15:10 DC Insulin Human Lispro (HumaLOG INSULIN) SEE PROTOCOL TABLE AC SC 10/01/20 17:30 10/02/20 13:28 Insulin Human Lispro (HumaLOG INSULIN) SEE PROTOCOL TABLE QHS SC 10/01/20 21:00 Levothyroxine Sodium (Synthroid) 125 mcg DAILY@0600 PO 10/02/20 06:00 10/02/20 05:48 Loperamide HCl (Imodium) 2 mg TIDP PRN PO DIARRHEA 10/01/20 15:15 Losartan Potassium (Cozaar) 25 mg DAILY PO 10/02/20 09:00 10/01/20 15:40 DC Ropinirole HCl (Requip) 1 mg QHS PO 10/01/20 21:00 10/01/20 21:06 Simvastatin (Zocor) 10 mg QPM PO 10/01/20 21:00 10/01/20 15:32 DC Simvastatin (Zocor) 20 mg QPM PO 10/02/20 21:00 Sodium Chloride 1,000 ml @ 100 mls/hr Q10H IV 10/01/20 12:26 10/01/20 14:26 DC 10/01/20 13:22 Sodium Chloride 1,000 ml @ 100 mls/hr Q10H IV 10/01/20 14:30 10/03/20 09:00 10/02/20 03:22 Allergies Coded Allergies: Penicillins (Verified Allergy, Unknown, 10/01/20) Sulfa (Sulfonamide Antibiotics) (Verified Adverse Reaction, Mild, mouth sores, 10/01/20) Renetta Ghosh MD Oct 02, 2020 16:01
--- NOTE | 2020-10-02 17:24 | REPVR ---
PROCEDURE INFORMATION: Exam: MR Head Without Contrast Exam date and time: 10/02/2020 3:30 PM Age: 79 years old Clinical indication: Weakness, extremity; Left; Additional info: R/O CVA with lue weakness, worsened TECHNIQUE: Imaging protocol: MR of the head without contrast. COMPARISON: CT Head without contrast 10/01/2020 12:26 PM FINDINGS: Brain: Foci of restricted diffusion are identified within the right frontal and parietal lobes, consistent with acute infarcts. There is a tiny focus of diffusion hyperintensity within the left parietal subcortical white matter, consistent with an acute or subacute infarct. Embolic disease is considered. There are additional foci of FLAIR hyperintensity within the cerebral white matter. There is no mass effect or restricted diffusion associated with these foci. In a patient this age, this likely represents chronic small vessel ischemic disease. Mild magnetic susceptibility mineralization or hemosiderin within the bilateral basal ganglia. Small basal ganglia chronic lacunar infarcts. There is an increase in fluid posterior to the cerebellum, most significant on the left side. 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 Fluid posterior to the left cerebellar measures 5.3 x 3.1 cm. Cerebral ventricles: There is moderate prominence of the ventricles and sulci, compatible with atrophy. Bones/joints: Nonspecific heterogeneous signal intensity of the skull. Paranasal sinuses: Normal as visualized. No acute sinusitis. Mastoid air cells: No mastoid effusion. Orbital cavity: Bilateral orbital lens implants. Soft tissues: Unremarkable, as visualized. IMPRESSION: 1. Foci of restricted diffusion are identified within the right frontal and parietal lobes, consistent with acute infarcts. There is a tiny focus of diffusion hyperintensity within the left parietal subcortical white matter, consistent with an acute or subacute infarct. Embolic disease is considered. 2. Moderate atrophy. 3. Mild additional white matter disease, likely representing chronic small vessel ischemic disease. 4. Small basal ganglia chronic lacunar infarcts. 5. There is an increase in fluid posterior to the cerebellum, most significant on the left side. 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 6. Additional findings described above. Electronically signed by: Murtaza Muir On 10/02/2020 17:24:24 PM
--- NOTE | 2020-10-02 17:33 | REPVR ---
PROCEDURE INFORMATION: Exam: MR Angiogram Head Without Contrast, Arteries Exam date and time: 10/02/2020 3:30 PM Age: 79 years old Clinical indication: Weakness; Additional info: R/O CVA with lue weakness, worsened TECHNIQUE: Imaging protocol: MR angiogram head without contrast. Exam focused on the arteries. COMPARISON: CT Head without contrast 10/01/2020 12:26 PM FINDINGS: ANTERIOR CIRCULATION: Right internal carotid artery: [id number] stenoses of the petrous right internal carotid artery. Artifact can contribute to this appearance. No aneurysm. Right middle cerebral artery: Mild stenosis of an M2 segment of the right middle cerebral artery. No occlusion of the right MCA, as visualized. No aneurysm. Right anterior cerebral artery: No occlusion or significant stenosis. No aneurysm. Left internal carotid artery: Mild stenoses of the petrous, distal cavernous, clinoid, and proximal ophthalmic segments of the left internal carotid artery. No aneurysm. Left middle cerebral artery: Mild stenoses involving an M2 segment the left middle cerebral artery. No occlusion of the left MCA, as visualized. No aneurysm. Left anterior cerebral artery: No occlusion or significant stenosis. No aneurysm. POSTERIOR CIRCULATION: Right vertebral artery: No occlusion or significant stenosis. No aneurysm. Left vertebral artery: No occlusion or significant stenosis. No aneurysm. Basilar artery: No occlusion or significant stenosis. No aneurysm. Right posterior cerebral artery: No occlusion or significant stenosis. No aneurysm. Left posterior cerebral artery: No occlusion or significant stenosis. No aneurysm. IMPRESSION: 1. Mild stenoses of the left internal carotid artery. 2. [id number] stenoses of the petrous right internal carotid artery. 3. Mild stenosis of an M2 segment of the right middle cerebral artery. 4. Mild stenoses involving an M2 segment the left middle cerebral artery. Electronically signed by: Murtaza Muir On 10/02/2020 17:32:48 PM
--- NOTE | 2020-10-02 18:40 | REPVR ---
PROCEDURE INFORMATION: Exam: US Duplex Lower Extremity Veins, Bilateral Exam date and time: 10/02/2020 6:26 PM Age: 79 years old Clinical indication: Pain; Leg, lower; Bilateral; Additional info: Multiple cvas, R/O dvts TECHNIQUE: Imaging protocol: Real-time duplex ultrasound of the extremities with 2-D boss scale, color Doppler flow and spectral waveform analysis with image documentation. Complete exam focused on the bilateral lower extremity veins. COMPARISON: No relevant prior studies available. FINDINGS: Right deep veins: The common femoral, femoral, proximal profunda femoral and popliteal veins are patent without thrombus. Normal compressibility and/or augmentation response. Right superficial veins: Not imaged. Left deep veins: The common femoral, femoral, proximal profunda femoral and popliteal veins are patent without thrombus. Normal compressibility and/or augmentation response. Left superficial veins: Not imaged. Soft tissues: Unremarkable. IMPRESSION: No evidence of deep venous thrombosis from the common femoral to the popliteal veins bilaterally. Electronically signed by: Murtaza Muir On 10/02/2020 18:39:59 PM
[2020-10-02] MEDS: SIMVASTATIN 20 MG TAB PO SCH (20:43)
[2020-10-02] MEDS: rOPINIRole 1MG TAB PO SCH (20:44)
[2020-10-02] MEDS: ALPRAZolam 0.5 MG TAB PO PRN (20:48)
[2020-10-02 22:00] VITALS: BP 106/47
[2020-10-03] MEDS: NS 1,000 ML IV SCH ×4 (02:08→18:03)
[2020-10-03] MEDS ORDERED: KETOROLAC 60MG 2ML VIAL IM ONE (05:15)
[2020-10-03] MEDS: LEVOTHYROXINE 125MCG TABLET (0.125MG) PO SCH (05:57)
[2020-10-03 06:00] VITALS: BP 152/60
[2020-10-03 06:06] LABS: HEMATOCRIT 40.9 % (36.0-47.0); HEMOGLOBIN 11.9 g/dl (12.0-15.5); MEAN CORPUSCULAR HEMOGLOBIN 28.7 pg (27.0-33.0); MEAN CORPUSCULAR HGB CONC 29.1 g/dl (32.0-36.5); MEAN CORPUSCULAR VOLUME 98.6 fl (80.0-96.0); PLATELET COUNT, AUTOMATED 146 10^3/uL (150-450); RED BLOOD COUNT 4.15 10^6/uL (4.00-5.40); WHITE BLOOD COUNT 10.1 10^3/uL (4.0-10.0)
[2020-10-03 06:10] VITALS: BP 140/50
[2020-10-03 06:34] LABS: ALBUMIN 2.7 GM/DL (3.2-5.2); BILIRUBIN,TOTAL 0.2 MG/DL (0.2-1.0); CALCIUM LEVEL 8.2 MG/DL (8.8-10.2); CREATININE FOR GFR 1.11 MG/DL (0.55-1.30); GLOMERULAR FILTRATION RATE 50.6 (>39); POTASSIUM SERUM 4.4 MEQ/L (3.5-5.1); TOTAL PROTEIN 5.6 GM/DL (6.4-8.2)
--- NOTE | 2020-10-03 08:23 | ECGEPIP ---
[facility] - ED Test Date: 2020-10-01 Pat Name: DANIELA HOLLIDAY Department: Room: - Gender: Female Director Patient Accounting: francine : 1940 Requested By: TA KWAN Order Number: [id number] Reading MD: Sondra Milligan Measurements Intervals Drury Rate: 61 P: 69 ND: 120 QRS: -27 QRSD: 153 T: 125 QT: 472 QTc: 478 Interpretive Statements SINUS RHYTHM LEFT BUNDLE BRANCH BLOCK NO PRIOR Electronically Signed on 10-03-2020 8:23:19 EST by Sondra Milligan
--- NOTE | 2020-10-03 08:46 | CR.PDOC ---
General Date of Consultation: Oct 03, [address] Servin HISTORY OF PRESENT ILLNESS: The patient is a 79-year-old female admitted to [facility] 10/01/20 with left upper extremity weakness and numbness status post fall. The morning of admission she had woke up and noticed her left arm was numb and tingly. 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 She called her son to come over and help her go to bed however on the way to her room she fell and hit her head. Her son called 911 and she was brought to the emergency room. She was found to have significant right carotid s tenosis and vascular surgery is consulted for further recommendations. ALLERGIES: Please see below. HOME MEDICATIONS: Please see below. PAST MEDICAL HISTORY: HTN HLD COPD on 2 L NC (not always compliant at home) GERALD Tobacco use Hx of Graves disease s/p radiation, now hypothyroid on synthroid Hx of bladder cancer Anxiety RLS DM type II Chronic pain Fibromyalgia Tobacco use PAST SURGICAL HISTORY: Neck/thyroid radiation treatments Cholecystectomy Bladder stent Back surgery Bilateral foot bunionectomy Right toe surgery Bilateral carpal tunnel surgery Bilateral cataract cystoscopy 10/14/19 FAMILY HISTORY: Noncontributory SOCIAL HISTORY: Smoker for 64 years, currently 5 cigarettes per day. REVIEW OF SYSTEMS: At baseline she uses a walker to assist her with ambulation. The patient states she is still feeling weak in her left upper extremity. Feels tired. PHYSICAL EXAMINATION: VITAL SIGNS: Please see below. GENERAL APPEARANCE: NAD HEENT: MMM RESPIRATORY: no wheezing CARDIOVASCULAR: RRR ABDOMEN: soft, NT EXTREMITIES: no edema MRI brain. IMPRESSION: 1. Foci of restricted diffusion are identified within the right frontal and parietal lobes, consistent with acute infarcts. There is a tiny focus of diffusion hyperintensity within the left parietal subcortical white matter, consistent with an acute or subacute infarct. Embolic disease is considered. 2. Moderate atrophy. 3. Mild additional white matter disease, likely representing chronic small vessel ischemic disease. 4. Small basal ganglia chronic lacunar infarcts. 5. There is an increase in fluid posterior to the cerebellum, most significant on the left side. 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 6. Additional findings described above. Electronically signed by: Murtaza Muir On 10/02/2020 17:24:24 PM Carotid ultrasound INDICATION: CVA COMPARISON: None. TECHNIQUE: Real-time ultrasound evaluation and duplex Doppler interrogation of the extracranial carotid vasculature is performed. FINDINGS: There is moderate diffuse plaquing bilaterally. There is significant stenosis of the right internal carotid artery. There is also significant stenosis of the left internal carotid artery, to a lesser extent. The stenosis of the right internal carotid artery is in the upper aspect of the 60-79% range. Stenosis of the left internal carotid artery is at the lower aspect of that range. There is normal direction of flow in both vertebral arteries. RIGHT LEFT Peak systolic velocity ICA 319 cm/s 167 cm/s End diastolic velocity ICA 86.6 cm/s 53.5 cm/s Peak systolic velocity CCA 73.9 cm/s 77.6cm/s Peak systolic velocity ECA 92.6 cm/s 152 cm/s ICA/CCA ratio 4.32 2.15 IMPRESSION: Moderate diffuse plaquing bilaterally. Bilateral stenosis of the internal carotid arteries 60-79%, the stenosis of the right internal carotid artery is at the upp er aspect of that range and left internal carotid artery at the lower aspect of that range. <Electronically signed by Alonzo Amos > 10/01/20 1522a ASSESSMENT/PLAN Carotid stenosis. MRI brain with findings of right frontal/parietal lobe acute infarcts and small focus left parietal consistent with acute or subacute infarct. Carotid ultrasound with right ICA velocities 319/86, ratio 4.32. On the left velocities 167/53, ratio 2.15 with antegrade vertebrals. The patient is reviewed by Dr. Servni. Imaging is reviewed by Dr. Servin. Plan would be to proceed with right carotid endarterectomy possibly during this admission. I have reviewed the procedure, indications, risks, benefits and alternatives with the patient this morning. She states at this time she is feeling tired and wants to talk about this later. Dr. Servin is planning to discuss further with the patient later this afternoon. Continue best medical management with aspirin 81 mg, Plavix 75 mg and statin daily. There is no healthcare proxy on the chart however it appears her contact is her son Stu, [phone]. Vital Signs/I&O Vital Signs Date Time Temp Pulse Resp B/P (MAP) Pulse Ox O2 Delivery O2 Flow Rate FiO2 10/03/20 06:10 140/50 (80) 10/03/20 06:00 99.2 78 20 95 Nasal Cannula 2.0 I&O- Last 24 Hours up to 6 AM 10/03/20 06:00 Intake Total 2840 ml Output Total 0 ml Balance 2840 ml Laboratory Data Labs 24H Laboratory Tests 2 10/02/20 11:20: Bedside Glucose (Misc Panel) 221H 10/02/20 17:21: Bedside Glucose (Misc Panel) 165H 10/02/20 19:55: Bedside Glucose (Misc Panel) 178H 10/03/20 05:39: Nucleated Red Blood Cells % (auto) 0.0, Anion Gap 5L, Glomerular Filtration Rate 50.6, Calcium Level 8.2L, Total Bilirubin 0.2, Aspartate Amino Transf (AST/SGOT) 9, Alanine Aminotransferase (ALT/SGPT) 17, Alkaline Phosphatase 107, Total Protein 5.6L, Albumin 2.7L, Albumin/Globulin Ratio 0.9L CBC/BMP Laboratory Tests 10/03/20 05:39 Allergies Coded Allergies: Penicillins (Verified Allergy, Unknown, 10/01/20) Sulfa (Sulfonamide Antibiotics) (Verified Adverse Reaction, Mild, mouth sores, 10/01/20) Home Medications Scheduled Carvedilol (Carvedilol) 25 Mg Tablet, 25 MG PO BID, (Reported) Chlorthalidone (Chlorthalidone) 25 Mg Tablet, 25 MG PO DAILY, (Reported) Duloxetine Hcl (Duloxetine HCl) 60 Mg Capsule.dr, 60 MG PO DAILY, (Reported) Gabapentin (Gabapentin) 100 Mg Capsule, 100 MG PO DAILY, (Reported) Levothyroxine Sodium (Synthroid) 125 Mcg Tablet, 125 MCG PO DAILY, (Reported) Losartan Potassium (Losartan Potassium) 25 Mg Tablet, 25 MG PO DAILY, (Reported) Lovastatin (Lovastatin) 10 Mg Tablet, 10 MG PO QPM, (Reported) Ropinirole HCl (Ropinirole HCl) 0.5 Mg Tablet, 1 MG PO QHS, (Reported) Scheduled PRN Alprazolam (Alprazolam) 1 Mg Tablet, 1 TAB PO BID PRN for ANXIETY, (Reported) Loperamide HCl (Loperamide) 2 Mg Capsule, 2 MG PO TIDP PRN for DIARRHEA, (Reported) Miscellaneous Medications [Comments] , (Reported) MED LIST MADE WITH HELP FROM [facility] AND A HEALTH CLINIC VISIT. HEALTH CLINIC VISIT HAS INSULIN BUT [facility] HAS NOT FILLED INSULIN IN MORE THAN A YEAR Elyssa Marrufo Oct 03, 2020 08:46
[2020-10-03] MEDS ORDERED: ASPIRIN 325 MG TAB PO SCH (09:00)
[2020-10-03] MEDS: HumaLOG INSULIN (NovoLOG) PER UNIT SC SCH ×4 (09:51→20:31)
[2020-10-03] MEDS: CLOPIDOGREL 75 MG TAB PO SCH (09:52)
[2020-10-03] MEDS: HEPARIN SOD (PORCINE) 5000UNITS/ML 1ML VIAL/SYRINGE SC SCH ×2 (09:52→20:31)
[2020-10-03] MEDS: ASPIRIN 81 MG ENTERIC TAB PO SCH (09:52)
[2020-10-03] MEDS: DULoxetine 30 MG CAP (CYMBALTA) PO SCH (09:53)
[2020-10-03] MEDS: GABAPENTIN 100 MG CAP PO SCH (09:53)
[2020-10-03] MEDS ORDERED: MIRALAX *UNIT DOSE* 17GM PACKET PO PRN (11:15)
[2020-10-03] MEDS: DOCUSATE SODIUM 100MG CAPSULE PO SCH ×2 (12:20→20:31)
[2020-10-03 14:00] VITALS: BP 138/54
--- NOTE | 2020-10-03 19:09 | IPNPDOC ---
Date Seen The patient was seen on 10/03/20. Progress Note Patient seen and examined. She is sitting up eating a salad, and says she is feeling better. She says she's working with physical therapy and they think she is getting a little better. She was very tired this morning, did not want to sign her consent, but now this afternoon she says she is willing to discuss doing the right carotid endarterectomy, but she doesn't want to sign consent tilt tomorrow. I reviewed with her her duplex findings, that on the right she has ICA velocities suggesting 75-80% stenosis, PSV/EDV 319/86, ICA/CCA ratio 4.3. On the left, the ICA barely has 50% stenosis, PSV/EDV 167/53, ICA/CC ratio 2.1. Both vertebrals are antegrade. This point the patient does not have i ndication for intervention on the left, but I do think she has an indication on the right. I discussed with Dr. Ghosh that we would like the patient on dual antiplatelet therapy, with 81 mg aspirin and 75 mg Plavix. She is agreeable to this. The patient is on statin. Our plan will be to do a right carotid endarterectomy, possibly this admission if we can arrange the scheduling. We will follow up her echo bubble study, and see if there is any need for further cardiac clearance prior to surgery. The patient and I had a lengthy discussion about the risks benefits alternatives to a right carotid endarterectomy, the need to stay on Plavix perioperatively, and what to expect postoperatively. I di d explain to her that sometimes the endarterectomy can exacerbate existing deficits and symptoms, which can make postoperative evaluations a bit challenging. However, if the carotid is the source of her right sided CVA, we accept that risk in the hopes of preventing further CVA. The patient was exte nsively counseled and all questions were answered. We appreciate the opportunity approaches patent care this patient. VS, I&O, 24H, Fishbone Vital Signs/I&O Vital Signs Date Time Temp Pulse Resp B/P (MAP) Pulse Ox O2 Delivery O2 Flow Rate FiO2 10/03/20 14:00 98.5 80 0 138/54 (82) 96 Room Air 10/03/20 06:00 2.0 I&O- Last 24 Hours up to 6 AM 10/03/20 06:00 Intake Total 2840 ml Output Total 0 ml Balance 2840 ml Laboratory Data 24H LABS Laboratory Tests 2 10/02/20 19:55: Bedside Glucose (Misc Panel) 178H 10/03/20 05:39: Nucleated Red Blood Cells % (auto) 0.0, Anion Gap 5L, Glomerular Filtration Rate 50.6, Calcium Level 8.2L, Total Bilirubin 0.2, Aspartate Amino Transf (AST/SGOT) 9, Alanine Aminotransferase (ALT/SGPT) 17, Alkaline Phosphatase 107, Total Protein 5.6L, Albumin 2.7L, Albumin/Globulin Ratio 0.9L 10/03/20 11:22: Bedside Glucose (Misc Panel) 223H 10/03/20 16:30: Bedside Glucose (Misc Panel) 165H CBC/BMP Laboratory Tests 10/03/20 05:39 ROSEMARY TAPIA MD Oct 03, 2020 19:09
[2020-10-03] MEDS: SIMVASTATIN 20 MG TAB PO SCH (20:31)
[2020-10-03] MEDS: rOPINIRole 1MG TAB PO SCH (20:31)
--- NOTE | 2020-10-03 20:34 | IPNPDOC ---
Date Seen The patient was seen on 10/03/20. Progress Note SUBJECTIVE: LUE weakness slightly improved, 3/5. Discussed with vascular surgery who will see today to discuss right carotid stenosis, possible endarterectomy. No other neurological deficits, denies chest pain, n/v/d and HD stable. OBJECTIVE: PHYSICAL EXAMINATION: VS: Please see below CONSTITUTIONAL: No acute distress, resting comfortably, AAO x 3 EYES: PERRLA, EOM intact HENT, MOUTH: Normocephalic, atraumatic, moist mucous membranes NECK: SUPPLE, no JVD, no lymphadenopathy, no carotid bruit CV: Regular rate and rhythm, S1S2 normal, no murmurs/rubs/gallops RESPIRATORY: Clear to auscultation bilaterally, no rales/rhonchi/wheezes GI: BS positive in 4 quadrants, soft, nontender, nondistended, no rebound or guarding, no organomegaly : Deferred MUSCULOSKELETAL: Normal ROM. No cyanosis, clubbing, swelling, joint deformity, extremity edema INTEGUMENTARY: Skin tear with scabbed wound on left dorsum of hand. Otherwise intact, no rashes, no lesions, no erythema NEUROLOGIC: Cranial Nerves II-XII are intact, LUE weakness increased from admission 3/5, no sensory deficits . All other ext 5/5, no motor sensory deficits. Reflexes intact PSYCHIATRIC: Mood and affect are normal LABORATORY DATA: Please see below IMAGING: MRI brain 10/02/20: 1. Foci of restricted diffusion are identified within the right frontal and parietal lobes, consistent with acute infarcts. There is a tiny focus of diffusion hyperintensity within the left parietal subcortical white matter, consistent with an acute or subacute infarct. Embolic disease is considered. 2. Moderate atrophy. 3. Mild additional white matter disease, likely representing chronic small vessel ischemic disease. 4. Small basal ganglia chronic lacunar infarcts. 5. There is an increase in fluid posterior to the cerebellum, most significant on the left side. 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 6. Additional findings described above. MRA brain 10/02/20: 1. Mild stenoses of the left internal carotid artery. 2. [id number] stenoses of the petrous right internal carotid artery. 3. Mild stenosis of an M2 segment of the right middle cerebral artery. 4. Mild stenoses involving an M2 segment the left middle cerebral artery. Carotid doppler: Moderate diffuse plaquing bilaterally. Bilateral stenosis of the internal carotid arteries 60-79%, the stenosis of the right internal carotid artery is at the upper aspect of that range and left internal carotid artery at the lower aspect of that range. CT head: neg Carotid US: Moderate diffuse plaquing bilaterally. Bilateral stenosis of the internal carotid arteries 60-79%, the stenosis of the right internal carotid artery is at the upper aspect of that range and left internal carotid artery at the lower aspect of that range. Echocardiogram done 10/01/20: Results pending ASSESSMENT: 79-year-old female with past medical history of diabetes mellitus type 2, hypertension, hyperlipidemia, chronic musculoskeletal pain, fibromyalgia, obstructive sleep apnea, tobacco use disorder, COPD 2 L nasal cannula around the clock, hypothyroidism with history of Graves' disease status post radiation, restless leg syndrome, history of bladder cancer, anxiety admitted to r/o CVA. PLAN: Left upper ext weakness 2/2 to CVA -Improved LUE today, no new neuro deficits -MRA/MRI above -Carotid US: b/l stenosis- discussed with Vascular surgery who is consulted -Echocardiogram with bubble study pending results -Lipid panel unremarkable, HbA1c 7.5 -C/w simvastatin 20 mg and ASA 81 mg PO daily, plavix daily -Stopped BB as BP dropped too low, allow higher BP, and kept on IVFs today- stopped later -PT/OT: c/w rehab -Neuro checks, tele Bilateral carotid stenosis -Carotid US above -Reviewed with Dr. Servin (vascular surgery). Plan will be to do a right carotid endarterectomy, possibly this admission if they can arrange the scheduling. They will follow up her echo bubble study, and see if there is any need for further cardiac clearance prior to surgery. HTN -BP slightly low today -Holding losartan, chlorthalidone, and now BB -On IVFs CKD Stage 2-3, LALA resolved -Cr wnl -D/c IVFs, avoid nephrotoxic medications, holding ARB -Daily labs DM type II -190-200's BS -HbA1c7.5 -C/w ISS and FS AC/HS, consistent carb diet HLD -Lipid panel unremarkable -C/w simvastatin 20 mg PO daily Chronic respiratory failure 2/2 to COPD, on 2 L NC ATC at home (noncompliant) -Patient admits to not wearing O2 as prescribed -CXR unremarkable GERALD -Can use home CPAP Tobacco use -Nicotine patch Anxiety -C/w home meds RLS -C/w home med Hx of Graves disease s/p radiation, now hypothyroid on synthroid -TSH wnl -C/w synthroid Chronic pain/ Fibromyalgia -C/w home meds DVT px -heparin Resolved issues: Diarrhea, nonbloody DISPOSITION: Vascular surgery consulted, following. Plan is PT/OT, likely need continued rehab with ARU. VS, I&O, 24H, Fishbone Vital Signs/I&O Vital Signs Date Time Temp Pulse Resp B/P (MAP) Pulse Ox O2 Delivery O2 Flow Rate FiO2 10/03/20 14:00 98.5 80 0 138/54 (82) 96 Room Air 10/03/20 06:00 2.0 I&O- Last 24 Hours up to 6 AM 10/03/20 06:00 Intake Total 2840 ml Output Total 0 ml Balance 2840 ml Laboratory Data 24H LABS Laboratory Tests 2 10/03/20 05:39: Nucleated Red Blood Cells % (auto) 0.0, Anion Gap 5L, Glomerular Filtration Rate 50.6, Calcium Level 8.2L, Total Bilirubin 0.2, Aspartate Amino Transf (AST/SGOT) 9, Alanine Aminotransferase (ALT/SGPT) 17, Alkaline Phosphatase 107, Total Prot ein 5.6L, Albumin 2.7L, Albumin/Globulin Ratio 0.9L 10/03/20 11:22: Bedside Glucose (Misc Panel) 223H 10/03/20 16:30: Bedside Glucose (Misc Panel) 165H 10/03/20 20:05: Bedside Glucose (Misc Panel) 190H CBC/BMP Laboratory Tests 10/03/20 05:39 Renetta Ghosh MD Oct 03, 2020 20:34
[2020-10-03 22:00] VITALS: BP 110/52
[2020-10-04] MEDS: LEVOTHYROXINE 125MCG TABLET (0.125MG) PO SCH (05:40)
[2020-10-04 06:00] VITALS: BP 167/70
[2020-10-04 06:32] LABS: HEMATOCRIT 42.3 % (36.0-47.0); HEMOGLOBIN 12.5 g/dl (12.0-15.5); MEAN CORPUSCULAR HGB CONC 29.6 g/dl (32.0-36.5); MEAN CORPUSCULAR VOLUME 98.1 fl (80.0-96.0); PLATELET COUNT, AUTOMATED 153 10^3/uL (150-450); RED BLOOD COUNT 4.31 10^6/uL (4.00-5.40); WHITE BLOOD COUNT 11.6 10^3/uL (4.0-10.0)
[2020-10-04 07:03] LABS: ALBUMIN 2.9 GM/DL (3.2-5.2); ALT/SGPT 21 U/L (12-78); BILIRUBIN,TOTAL 0.3 MG/DL (0.2-1.0); BLOOD UREA NITROGEN 20 MG/DL (7-18); CALCIUM LEVEL 8.7 MG/DL (8.8-10.2); CARBON DIOXIDE LEVEL 30 MEQ/L (21-32); CHLORIDE LEVEL 106 MEQ/L (98-107); CREATININE FOR GFR 0.86 MG/DL (0.55-1.30); GLOMERULAR FILTRATION RATE > 60.0 (>39); GLUCOSE, FASTING 210 MG/DL (70-100); POTASSIUM SERUM 4.5 MEQ/L (3.5-5.1); SODIUM LEVEL 142 MEQ/L (136-145)
--- NOTE | 2020-10-04 08:35 | ECHO ---
DATE OF PROCEDURE: 10/01/2020 Age: 79 Gender: Female Height: 155 cm Weight: 89 kg REFERRING PHYSICIAN: Dr. Renetta Ghosh INDICATION: Cerebrovascular accident. MEASUREMENTS: IVS 1.7 cm LV 3.2 cm LVPW 1.5 cm LA 3.5 cm Aorta 3.9 cm IVC 2.4 cm Mitral E wave velocity 70 Mitral A 96 E prime septal 5.1 E prime lateral 7.6 FINDINGS: This study is of fair technical quality with difficult visualization. Underlying sinus rhythm. Left ventricle has normal size and overall likely normal systolic function based on limited visualization. Moderate left ventricular hypertrophy is present. The right ventricle is poorly visualized, but grossly appears normal. Both atria appear normal. The aortic valve is sclerotic. It has three cusps and grossly preserved mobility. There are mild degenerative abnormalities of the mitral valve with mitral annular calcifications. Tricuspid and pulmonic valve appear normal, pulmonic valve was very poorly seen though. No pericardial effusion is noted. Inferior vena cava is dilated indicative of elevated central venous pressure. Aortic root is normal. Aortic arch and abdominal aorta were not well seen. Doppler interrogation of the aortic valve reveals no significant stenosis (mean gradient was only 8 mmHg) and mild insufficiency. Mitral and tricuspid valves are functionally competent with only trivial tricuspid insufficiency. Calculated pulmonary artery pressure is at a minimum in the mid 30s corresponding to mild pulmonary hypertension. Mitral inflow pattern and tissue Doppler imaging of the mitral annulus revealed grade 1 diastolic dysfunction. Injection of agitated saline through peripheral vein indicates no shunting across the cardiac septum, negative bubble study. CONCLUSIONS: 1. Study is of fair technical quality, underlying sinus rhythm. 2. Normal LV size with moderate LVH and likely preserved LV systolic function based on limited views. Grade 1 diastolic dysfunction. 3. Aortic sclerosis with trivial stenosis and mild insufficiency. 4. No significant mitral and tricuspid valvular disease. 5. At least mildly elevated central venous pressure and at least mildly elevated pulmonary artery pressure. 6. Negative bubble study. [facility]
--- NOTE | 2020-10-04 08:48 | IPNPDOC ---
Text Note Date of Service The patient was seen on 10/04/20. NOTE Vascular surgery. Dr. Servin The patient is a 79-year-old female admitted to [facility] 10/01/20 with left upper extremity weakness and numbness status post fall. The morning of admission she had woke up and noticed her left arm was numb and tingly. 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 She called her son to come over and help her go to bed however on the way to her room she fell and hit her head. Her son called 911 and she was brought to the emergency room. She was found to have significant right carotid stenosis and vascular surgery is consulted for further recommendations. The patient is awake and sitting up in bed eating breakfast this morning. She states she is feeling a little better. She participated with physical therapy yesterday. Dr. Servin discussed with her proceeding with right carotid endarterectomy yesterday afternoon. Carotid stenosis. MRI brain with findings of right frontal/parietal lobe acute infarcts and small focus left parietal consistent with acute or subacute infarct. Carotid ultrasound with right ICA velocities 319/86, ratio 4.32. On the left velocities 167/53, ratio 2.15 with antegrade vertebrals. The patient is reviewed by Dr. Servin. Imaging is reviewed by Dr. Servin. Plan would be to proceed with right carotid endarterectomy tentatively planned during this admission. I have again reviewed the procedure, indications, risks, benefits and alternatives with the patient this morning. She states any consents need to be discussed with her son Stu. She does not want to sign consent at this time. Continue best medical management with aspirin 81 mg, Plavix 75 mg and statin daily. There is no healthcare proxy on the chart however it appears her contact is her son Stu, [phone]. VS,Fishbone, I+O VS, Fishbone, I+O Laboratory Tests 10/04/20 06:09 Vital Signs Date Time Temp Pulse Resp B/P (MAP) Pulse Ox O2 Delivery O2 Flow Rate FiO2 10/04/20 06:00 97.1 83 23 167/70 (102) 96 Nasal Cannula 3.0 I&O- Last 24 Hours up to 6 AM 10/04/20 05:59 Intake Total 2550 ml Output Total 0 ml Balance 2550 ml Elyssa Marrufo Oct 04, 2020 08:48
[2020-10-04] MEDS: HEPARIN SOD (PORCINE) 5000UNITS/ML 1ML VIAL/SYRINGE SC SCH ×2 (09:19→21:21)
[2020-10-04] MEDS: CLOPIDOGREL 75 MG TAB PO SCH (09:19)
[2020-10-04] MEDS: GABAPENTIN 100 MG CAP PO SCH (09:19)
[2020-10-04] MEDS: DULoxetine 30 MG CAP (CYMBALTA) PO SCH (09:19)
[2020-10-04] MEDS: ASPIRIN 81 MG ENTERIC TAB PO SCH (09:19)
[2020-10-04] MEDS: DOCUSATE SODIUM 100MG CAPSULE PO SCH ×2 (09:19→21:20)
[2020-10-04] MEDS: HumaLOG INSULIN (NovoLOG) PER UNIT SC SCH ×4 (09:20→21:00)
--- NOTE | 2020-10-04 10:08 | IPNPDOC ---
Text Note Date of Service The patient was seen on 10/04/20. NOTE SUBJECTIVE: Patient seen and examined at bedside. No acute overnight events reported. She does note some left elbow pain and left shoulder pain, which she states started after her fall. OBJECTIVE: VS: Please see below General: NAD, elderly, lying comfortably in bed HEENT: NC/AT, EOMI CV: +S1S2, RRR Chest: CTA B/L Abd: soft, NT, +BS Ext: no edema ASSESSMENT: 79-year-old female with past medical history of diabetes mellitus type 2, hypertension, hyperlipidemia, chronic musculoskeletal pain, fibromyalgia, obstructive sleep apnea, tobacco use disorder, COPD 2 L nasal c annula around the clock, hypothyroidism with history of Graves' disease status post radiation, restless leg syndrome, history of bladder cancer, anxiety admitted to r/o CVA. PLAN: #Left upper ext weakness 2/2 to CVA -Carotid US: b/l stenosis- discussed with Vascular surgery who is consulted - plan for right CEA -Echocardiogram with bubble study pending results -Lipid panel unremarkable, HbA1c 7.5 -C/w simvastatin 20 mg and ASA 81 mg PO daily, plavix daily -Stopped BB as BP dropped too low, allow higher BP -PT/OT: c/w rehab -Neuro checks, tele #Bilateral carotid stenosis -Carotid US above -Reviewed with Dr. Servin (vascular surgery). Plan will be to do a right carotid endarterectomy, possibly this admission if they can arrange the scheduling. They will follow up her echo bubble study, and see if there is any need for further cardiac clearance prior to surgery. #HTN -BP slightly low today -Holding losartan, chlorthalidone, and now BB #CKD Stage 2-3, LALA resolved -Cr wnl -D/c IVFs, avoid nephrotoxic medications, holding ARB -Daily labs #DM type II -190-200's BS -HbA1c7.5 -C/w ISS and FS AC/HS, consistent carb diet #HLD -Lipid panel unremarkable -C/w simvastatin 20 mg PO daily #Chronic respiratory failure 2/2 to COPD, on 2 L NC ATC at home (noncompliant) -Patient admits to not wearing O2 as prescribed -CXR unremarkable #GERALD -Can use home CPAP #Tobacco use -Nicotine patch #Anxiety -C/w home meds #RLS -C/w home med #Hx of Graves disease s/p radiation, now hypothyroid on synthroid -TSH wnl -C/w synthroid #Chronic pain/ Fibromyalgia -C/w home meds #DVT px -heparin Resolved issues: Diarrhea, nonbloody DISPOSITION: left elbow/shoulder xray pending, vascular f/u pending , possible right CEA VS,Fishbone, I+O VS, Fishbone, I+O Laboratory Tests 10/04/20 06:09 Vital Signs Date Time Temp Pulse Resp B/P (MAP) Pulse Ox O2 Delivery O2 Flow Rate FiO2 10/04/20 06:00 97.1 83 23 167/70 (102) 96 Nasal Cannula 3.0 I&O- Last 24 Hours up to 6 AM 10/04/20 06:00 Intake Total 2540 ml Output Total 0 ml Balance 2540 ml RANDELL TIAN MD Oct 04, 2020 10:08
[2020-10-04 14:00] VITALS: BP 147/49
--- NOTE | 2020-10-04 14:29 | REP ---
INDICATION: elbow pain s/p fall. COMPARISON: None. TECHNIQUE: Four views. FINDINGS: Four views of the left elbow demonstrate diffuse osteopenia. There is soft tissue calcification or opaque debris in the soft tissues superficial to the proximal ulna on the dorsal surface of the elbow. No fracture or subluxation is seen. And intravenous cannula and connected tubing are visible over the soft tissues of the mid arm.. . . IMPRESSION: Calcific density in the dorsal soft tissues adjacent to the proximal ulna at the level of the elbow. Calcification versus opaque debris/foreign material. Diffuse osteopenia. Intravenous cannula. No fracture seen.. <Electronically signed by Maverick Gibson > 10/04/20 [id number]
--- NOTE | 2020-10-04 14:30 | REP ---
INDICATION: elbow pain s/p fall. COMPARISON: None. TECHNIQUE: Three views. FINDINGS: Three views of the left shoulder demonstrate normal alignment of the glenohumeral acromioclavicular joint. There is mild AC joint hypertrophy. Soft tissue calcification is seen along the superior aspect of the AC joint consistent with calcific tendinitis or bursitis change. There is diffuse osteopenia. IMPRESSION: Diffuse osteopenia. No fracture or subluxation seen. Soft tissue calcification adjacent to the AC joint. <Electronically signed by Maverick Gibson > 10/04/20 [id number]
--- NOTE | 2020-10-04 15:26 | IPNPDOC ---
Date Seen The patient was seen on 10/04/20. Progress Note At the patient's request, I had a phone conversation with her son Stu today. This was a lengthy conversation. We went over the natural history of carotid disease, the patient's MRI findings, the patient's duplex carotid findings, my recommendations for right carotid endarterectomy, and he had extensive questions. I did my best to answer all of his questions to his satisfaction. I also explained to him that the patient is on best medical management at this time with aspirin Plavix and statin, and that although this lowers her risk for stroke, we cannot guarantee that it will prevent it. I also explained to him that although she does have significant right carotid stenosis, and that I es timated to be 75-80% stenotic, that she also may have had another etiology for her stroke, and she is being worked up extensively. Nevertheless, I think there is a good chance that her stroke was related to her carotid stenosis. After extensive discussion with the patient's son, he was unsure if he wanted to proceed or not. He is concerned that he can't sit with his mother [id number] and discuss it with her. I understand that this can be a little frustrating with visitation restrictions. I do not feel that there is any emergency to proceed with endarterectomy at this time. I would however recommend that it be done within the next few months to try to help prevent another stroke. He is cons idering having her surgery here, versus taking the patient to [place] where he has specialists and feels they could help him get an appointment for vascular surgery. I assured him that whenever they decide to do, we are happy to help. If they would like to go to [place], we be happy to send imaging to facilitate her care there. We want the patient and her family to be comfortable with whatever d ecision they make. We are available if they would like to pursue vascular surgery here, and her son said he would let us know. We appreciate the opportunity to participate in the care of this patient. VS, I&O, 24H, Fishbone Vital Signs/I&O Vital Signs Date Time Temp Pulse Resp B/P (MAP) Pulse Ox O2 Delivery O2 Flow Rate FiO2 10/04/20 14:00 97.9 75 20 147/49 (81) 95 Nasal Cannula 3.0 I&O- Last 24 Hours up to 6 AM 10/04/20 06:00 Intake Total 2540 ml Output Total 0 ml Balance 2540 ml Laboratory Data 24H LABS Laboratory Tests 2 10/03/20 16:30: Bedside Glucose (Misc Panel) 165H 10/03/20 20:05: Bedside Glucose (Misc Panel) 190H 10/04/20 06:09: Nucleated Red Blood Cells % (auto) 0.0, Anion Gap 6L, Glomerular Filtration Rate > 60.0, Calcium Level 8.7L, Total Bilirubin 0.3, Aspartate Amino Transf (A ST/SGOT) 12, Alanine Aminotransferase (ALT/SGPT) 21, Alkaline Phosphatase 107, Total Protein 6.0L, Albumin 2.9L, Albumin/Globulin Ratio 0.9L 10/04/20 11:17: Bedside Glucose (Misc Panel) 195H CBC/BMP Laboratory Tests 10/04/20 06:09 ROSEMARY TAPIA MD Oct 04, 2020 15:26
[2020-10-04] MEDS: ALPRAZolam 0.5 MG TAB PO PRN (17:24)
[2020-10-04] MEDS: SIMVASTATIN 20 MG TAB PO SCH (21:22)
[2020-10-04] MEDS: rOPINIRole 1MG TAB PO SCH (21:22)
[2020-10-04 22:00] VITALS: BP 146/51
[2020-10-05] MEDS: LEVOTHYROXINE 125MCG TABLET (0.125MG) PO SCH (05:38)
[2020-10-05 06:00] VITALS: BP 148/83
[2020-10-05 06:31] LABS: HEMATOCRIT 44.6 % (36.0-47.0); HEMOGLOBIN 13.5 g/dl (12.0-15.5); MEAN CORPUSCULAR HEMOGLOBIN 28.8 pg (27.0-33.0); MEAN CORPUSCULAR HGB CONC 30.3 g/dl (32.0-36.5); MEAN CORPUSCULAR VOLUME 95.1 fl (80.0-96.0); PLATELET COUNT, AUTOMATED 152 10^3/uL (150-450); RED BLOOD COUNT 4.69 10^6/uL (4.00-5.40); WHITE BLOOD COUNT 9.2 10^3/uL (4.0-10.0)
[2020-10-05 07:00] LABS: ALBUMIN 2.8 GM/DL (3.2-5.2); ALT/SGPT 21 U/L (12-78); BILIRUBIN,TOTAL 0.2 MG/DL (0.2-1.0); BLOOD UREA NITROGEN 17 MG/DL (7-18); CALCIUM LEVEL 9.4 MG/DL (8.8-10.2); CARBON DIOXIDE LEVEL 35 MEQ/L (21-32); CHLORIDE LEVEL 102 MEQ/L (98-107); CREATININE FOR GFR 0.89 MG/DL (0.55-1.30); GLOMERULAR FILTRATION RATE > 60.0 (>39); GLUCOSE, FASTING 202 MG/DL (70-100); SODIUM LEVEL 140 MEQ/L (136-145); TOTAL PROTEIN 6.9 GM/DL (6.4-8.2)
[2020-10-05] MEDS: HumaLOG INSULIN (NovoLOG) PER UNIT SC SCH ×4 (09:21→20:19)
[2020-10-05] MEDS: DOCUSATE SODIUM 100MG CAPSULE PO SCH ×2 (09:21→20:18)
[2020-10-05] MEDS: ASPIRIN 81 MG ENTERIC TAB PO SCH (09:21)
[2020-10-05] MEDS: CLOPIDOGREL 75 MG TAB PO SCH (09:21)
[2020-10-05] MEDS: HEPARIN SOD (PORCINE) 5000UNITS/ML 1ML VIAL/SYRINGE SC SCH ×2 (09:21→20:18)
[2020-10-05] MEDS: DULoxetine 30 MG CAP (CYMBALTA) PO SCH (09:22)
[2020-10-05] MEDS: GABAPENTIN 100 MG CAP PO SCH (09:22)
[2020-10-05] MEDS ORDERED: ASPI81TAEC PO (09:39)
[2020-10-05] MEDS ORDERED: CLOP75TA2 PO (09:39)
[2020-10-05] MEDS ORDERED: LOSARTAN 25 MG TAB PO ONE (09:45)
--- NOTE | 2020-10-05 12:56 | CR ---
CONSULTATION DATE: 10/05/2020 REASON FOR CONSULTATION: Left elbow/left shoulder pain after a fall. CONSULTATION FOR: Hospitalist service. ATTENDING: Dr. John Avina HISTORY OF PRESENT ILLNESS: This is a 79-year-old female patient who sustained a fall around 10/01/20 that was unwitnessed and injured her left arm, elbow, and shoulder. She was admitted for workup for left arm weakness and was noted to have an acute stroke as well as carotid artery stenosis. In the process of workup, she had x-rays done of her elbow, and notably no acute fracture. There are benign-appearing calcifications in the soft tissues but no foreign body noted. X-rays were also obtained of the shoulder as well. I reviewed those images as well, also notable for degenerative changes of the acromioclavicular (AC) joint. There is a small inferior spur of the glenoid but no acute fracture. There are cystic changes of the humeral head. Currently she complains of pain on the tip of the elbow as well as shoulder pain in the anterior and top of the shoulder. Her pain she says is better than when she was admitted. She feels it is improving. Initially she had a hard time just moving the left upper extremity, but now she can use it to feed herself and to get dressed. It hurts to push off and hurts to try to get herself into a seated position, but otherwise she does feel it is improving. She denies any prior surgery on the elbow. Denies any prior surgery on the shoulder. No injections in the shoulder or the elbow. She also has weakness on that left side consistent with an acute cerebrovascular accident (CVA) that she is in the process of being worked up for. She is apparently moving to the acute rehabilitation facility soon. MEDICAL HISTORY: 1. Hypertension. 2. Elevated lipids. 3. Chronic obstructive pulmonary disease (COPD). 4. Sleep apnea. 5. Tobacco abuse. 6. Hypothyroidism. 7. History of bladder cancer. 8. Anxiety. 9. Restless leg syndrome. 10. Diabetes, type 2. 11. Chronic pain. 12. Fibromyalgia. SURGICAL HISTORY: 1. Thyroid surgery. 2. Gallbladder removed. 3. Bladder stent. 4. Lumbar surgery. 5. Bunionectomy bilaterally. 6. Right toe surgery. 7. Bilateral carpal tunnel releases. 8. Bilateral cataracts. 9. She also had a cystoscope. FAMILY HISTORY: Noncontributory at this point. SOCIAL HISTORY: She does continue to smoke five cigarettes per day. Denies any alcohol use. Generally uses oxygen at home and also uses a walker when she goes any distance. ALLERGIES: PENICILLIN and SULFA MEDICATIONS. CURRENT MEDICATIONS: - carvedilol 25 mg one tablet twice a day - chlorthalidone 25 mg one tablet once per day - duloxetine 60 mg one tablet once per day - gabapentin 100 mg one tablet once per day - levothyroxine 125 mcg one tablet once per day - losartan 25 mg one tablet once per day - ropinirole 0.5 mg, she takes 1 mg at bedtime REVIEW OF SYSTEMS: As per the history of present illness (HPI). PHYSICAL EXAMINATION: Today reveals an alert female patient who is oriented times three, lying in a hospital stretcher. She is able to converse with me easily. There are symmetrical rise and fall of the chest, her breathing is unlabored. She appears to be in no distress currently. Abdomen is not distended. Spurling's is negative on exam. Genevieve's is negative bilaterally. Deep tendon reflexes are trace in the upper extremities. Exam of the left elbow reveals skin to be intact. No erythema, edema, or ecchymosis. The skin is also intact around the left shoulder. There is tenderness over the AC joint on exam. Impingement is irritable in the left shoulder. There is tenderness over the olecranon process of the elbow but good elbow range of motion. No pain with supination or pronation of the forearm. Good wrist range of motion without pain. Brisk capillary refill at the fingertips. Well perfused left upper extremity. There are two well-healing abrasions without signs of infection along the dorsal aspect of wrist and forearm. There is an intravenous (IV) in the upper arm also noted. No signs of infection around the elbow. No signs of infection around the shoulder. Shoulder range of motion is limited to about 80 degrees of forward flexion and 90 degrees of abduction on exam today. External rotation is 30. Internal rotation to the left hip. Left elbow range of motion is full. IMPRESSION: Primary osteoarthritis of the right shoulder, to include the AC joint and the glenohumeral joint. Contusion to the left elbow, contusion to the left shoulder, all secondary to a fall. PLAN: From orthopedic standpoint, there is no surgical indications for ongoing symptoms. In terms of the calcifications in the soft tissues around the elbow, they appear to be benign and appear to have been there for quite some period of time. Would not require any further treatments at this point. There are no open wounds. She is improving. We continue gentle range of motion of the elbow and shoulder with physical therapy. I would not recommend a sling at this point, as she does understand that use of the sling may cause stiffness in the elbow and shoulder, and we would preferred her not to use a sling. She should limit the use to not lifting more than 10 pounds, though she could weight bear as tolerated on the left upper extremity. Use it for transfers as needed. She can followup in our office after discharge in 2 or 3 weeks if she continues to be symptomatic, though I think she will improve. She does have ongoing weakness related to her stroke, and that would likely improve also with physical therapy. She does feel that is improving as well, so at this point, from an orthopedic standpoint, we can see her on an as-needed basis. No further treatment is indicated other than physical therapy for motion and strengthening, which she is already doing for her rehabilitation for her stroke, so I would continue current therapy. From our standpoint is could be discharged as seen fit by the primary team. If there are further difficulties, re-consult orthopedics at that point, otherwise we will follow her at a distance. We did go over the treatment plan with the patient. I explained recommendations. She was agreeable to all those recommendations. She understands the followup plan as well. If she does require further followup, she could followup with us on an outpatient basis, but at this point she should improve with just conservative management. NAI
[2020-10-05 14:00] VITALS: BP 169/76
[2020-10-05 14:40] VITALS: BP 148/64
--- NOTE | 2020-10-05 15:02 | DS.PDOC ---
Discharge Summary General Date of Admission Oct 01, 2020 at 14:16 Date of Discharge 10/05/20 Specialist/Consultants Involve vascular, orthopedics Discharge Summary PROCEDURES PERFORMED DURING STAY: [None]. DISCHARGE DIAGNOSES: Rule out CVA SECONDARY DIAGNOSES: HTN HLD COPD on 2 L NC (not always compliant at home) GEARLD Tobacco use Hx of Graves disease s/p radiation, now hypothyroid on synthroid Hx of bladder cancer Anxiety RLS DM type II Chronic pain Fibromyalgia Tobacco use COMPLICATIONS/CHIEF COMPLAINT: CVA. HISTORY OF PRESENT ILLNESS: Patient is a 79-year-old female with past medical history of diabetes mellitus type 2, hypertension, hyperlipidemia, chronic musc uloskeletal pain, fibromyalgia, obstructive sleep apnea, tobacco use disorder, COPD 2 L nasal cannula around the clock, hypothyroidism with history of Graves' disease status post radiation, restless leg syndrome, history of bladder cancer, anxiety who presented to [facility] status post fall and left upper extremity weakness and numbness. The patient states 2 days ago she had diarrhea which resolved on its on and then today she woke up and noticed her left arm was numb and tingling. She described it as "like my arm was not there". She continued with her normal morning routine and had an episode of diarrhea afterwards. 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 She denied chest pain, shortness of breath, nausea, vomiting, lightheadedness, sick contacts recently, dizziness, leg weakness, drooling, drooping of her face, change of her speech, recent antibiotic use, recent hospitalizations in the past 90 days, diet changes. She states she had associated abdominal pain with her diarrhea and the last time she had this was again 2 days ago. She called her son to come over to help her get to bed. On the way to the room she fell and hit her head on the way down. Her son then called 911 and she was brought to the emergency room. In the emergency room vital signs were stable. On exam her left upper extremity was weaker 4/5 strength, she was able to lift her left arm above her head without issues. She had no obvious sensory deficits but was not able to make a complete fist with her left upper ext. CT head neg. She had mild WBC elevation, Cr incr at 1.46 (appears to be baseline since 06/2020), trop neg, BS 223. CXR neg, ECG showed LBBB (old) and otherwise similar to prior on file. Due to persistent numbness, tingling and weakness of LUE, patient was admitted to r/o CVA. HOSPITAL COURSE: 79-year-old female with past medical history of diabetes mellitus type 2, hypertension, hyperlipidemia, chronic musculoskeletal pain, fibromyalgia, obstructive sleep apnea, tobacco use disorder, COPD 2 L nasal cannula around the clock, hypothyroidism with history of Graves' disease status post radiation, restless leg syndrome, history of bladder cancer, anxiety admitted to r/o CVA. #Left upper ext weakness 2/2 to CVA -Carotid US: b/l stenosis- discussed with Vascular surgery who is consulted - patient and family to decide if they want to proceed with surgery - for now, they are declining -Echocardiogram with bubble study noted -Lipid panel unremarkable, HbA1c 7.5 -C/w simvastatin 20 mg and ASA 81 mg PO daily, plavix daily -Stopped BB as BP dropped too low, allow higher BP -PT/OT: c/w rehab -Neuro checks, tele #Bilateral carotid stenosis -Carotid US above #HTN -BP slightly low today -Holding losartan, chlorthalidone, and now BB #CKD Stage 2-3, LALA resolved #DM type II -190-200's BS -HbA1c7.5 -C/w ISS and FS AC/HS, consistent carb diet #HLD -Lipid panel unremarkable -C/w simvastatin 20 mg PO daily #Chronic respiratory failure 2/2 to COPD, on 2 L NC ATC at home (noncompliant) -Patient admits to not wearing O2 as prescribed -CXR unremarkable #GERALD -Can use home CPAP #Tobacco use -Nicotine patch #Anxiety -C/w home meds #RLS -C/w home med #Hx of Graves disease s/p radiation, now hypothyroid on synthroid -TSH wnl -C/w synthroid #Chronic pain/ Fibromyalgia -C/w home meds DISCHARGE MEDICATIONS: Please see below. ALLERGIES: Please see below. PHYSICAL EXAMINATION ON DISCHARGE: VS: Please see below General: NAD, elderly, lying comfortably in bed HEENT: NC/AT, EOMI CV: +S1S2, RRR Chest: CTA B/L Abd: soft, NT, +BS Ext: no edema LABORATORY DATA: Please see below. ACTIVITY: [As tolerated]. DISPOSITION: Discharge to ARU. DISCHARGE INSTRUCTIONS: 1. Further direction as per ARU. 2. PCP in 3-5 days after discharge. DISCHARGE CONDITION: [Stable]. TIME SPENT ON DISCHARGE: 35 minutes. Vital Signs/I&Os Vital Signs Date Time Temp Pulse Resp B/P (MAP) Pulse Ox O2 Delivery O2 Flow Rate FiO2 10/05/20 14:40 148/64 (92) 10/05/20 14:00 98.4 92 18 96 Nasal Cannula 3.0 I&O- Last 24 Hours up to 6 AM 10/05/20 06:00 Intake Total 1857 ml Output Total 0 ml Balance 1857 ml Laboratory Data Labs 24H Laboratory Tests 2 10/04/20 16:29: Bedside Glucose (Misc Panel) 206H 10/04/20 20:58: Bedside Glucose (Misc Panel) 217H 10/05/20 05:56: Nucleated Red Blood Cells % (auto) 0.0, Anion Gap 3L, Glomerular Filtration Rate > 60.0, Calcium Level 9.4, Total Bilirubin 0.2, Aspartate Amino Transf (AST/SGOT) 10, Alanine Aminotransferase (ALT/SGPT) 21, Alkaline Phosphatase 114, Total Protein 6.9, Albumin 2.8L, Albumin/Globulin Ratio 0.7L 10/05/20 11:16: Bedside Glucose (Misc Panel) 237H CBC/BMP Laboratory Tests 10/05/20 05:56 FSBS Laboratory Tests Test 10/04/20 16:29 10/04/20 20:58 10/05/20 11:16 Range/Units Bedside Glucose (Misc Panel) 206 217 237 83-110 MG/DL Discharge Medications Scheduled Aspirin (Aspirin EC) 81 Mg Tablet.dr, 81 MG PO DAILY Clopidogrel Bisulfate (Clopidogrel) 75 Mg Tablet, 75 MG PO DAILY Duloxetine Hcl (Duloxetine HCl) 60 Mg Capsule.dr, 60 MG PO DAILY, (Reported) Gabapentin (Gabapentin) 100 Mg Capsule, 100 MG PO DAILY, (Reported) Levothyroxine Sodium (Synthroid) 125 Mcg Tablet, 125 MCG PO DAILY, (Reported) Losartan Potassium (Losartan Potassium) 25 Mg Tablet, 25 MG PO DAILY, (Reported) Lovastatin (Lovastatin) 10 Mg Tablet, 10 MG PO QPM, (Reported) Ropinirole HCl (Ropinirole HCl) 0.5 Mg Tablet, 1 MG PO QHS, (Reported) Scheduled PRN Alprazolam (Alprazolam) 1 Mg Tablet, 1 TAB PO BID PRN for ANXIETY, (Reported) Loperamide HCl (Loperamide) 2 Mg Capsule, 2 MG PO TIDP PRN for DIARRHEA, (Reported) Miscellaneous Medications [Comments] , (Reported) MED LIST MADE WITH HELP FROM [facility] AND A HEALTH CLINIC VISIT. HEALTH CLINIC VISIT HAS INSULIN BUT [facility] HAS NOT FILLED INSULIN IN MORE THAN A YEAR Allergies Coded Allergies: Penicillins (Verified Allergy, Unknown, 10/01/20) Sulfa (Sulfonamide Antibiotics) (Verified Adverse Reaction, Mild, mouth sores, 10/01/20) RANDELL TIAN MD Oct 05, 2020 15:01
[2020-10-05] MEDS: SIMVASTATIN 20 MG TAB PO SCH (20:18)
[2020-10-05] MEDS: rOPINIRole 1MG TAB PO SCH (20:18)
[2020-10-05 22:00] VITALS: BP 173/74
[2020-10-06] MEDS: LEVOTHYROXINE 125MCG TABLET (0.125MG) PO SCH (05:43)
[2020-10-06 06:00] VITALS: BP 147/64
[2020-10-06 06:18] LABS: HEMATOCRIT 43.7 % (36.0-47.0); HEMOGLOBIN 13.2 g/dl (12.0-15.5); MEAN CORPUSCULAR HEMOGLOBIN 28.4 pg (27.0-33.0); MEAN CORPUSCULAR HGB CONC 30.2 g/dl (32.0-36.5); PLATELET COUNT, AUTOMATED 155 10^3/uL (150-450); RED BLOOD COUNT 4.65 10^6/uL (4.00-5.40); WHITE BLOOD COUNT 8.8 10^3/uL (4.0-10.0)
[2020-10-06 06:42] LABS: ALBUMIN 2.7 GM/DL (3.2-5.2); ALT/SGPT 21 U/L (12-78); BILIRUBIN,TOTAL 0.2 MG/DL (0.2-1.0); BLOOD UREA NITROGEN 17 MG/DL (7-18); CALCIUM LEVEL 9.4 MG/DL (8.8-10.2); CARBON DIOXIDE LEVEL 36 MEQ/L (21-32); CHLORIDE LEVEL 99 MEQ/L (98-107); CREATININE FOR GFR 0.86 MG/DL (0.55-1.30); GLOMERULAR FILTRATION RATE > 60.0 (>39); GLUCOSE, FASTING 233 MG/DL (70-100); POTASSIUM SERUM 4.1 MEQ/L (3.5-5.1); SODIUM LEVEL 141 MEQ/L (136-145); TOTAL PROTEIN 6.5 GM/DL (6.4-8.2)
[2020-10-06] MEDS: ASPIRIN 81 MG ENTERIC TAB PO SCH (08:48)
[2020-10-06] MEDS: GABAPENTIN 100 MG CAP PO SCH (08:48)
[2020-10-06] MEDS: DOCUSATE SODIUM 100MG CAPSULE PO SCH ×2 (08:48→21:08)
[2020-10-06] MEDS: CLOPIDOGREL 75 MG TAB PO SCH (08:49)
[2020-10-06] MEDS: DULoxetine 30 MG CAP (CYMBALTA) PO SCH (08:49)
[2020-10-06] MEDS: HEPARIN SOD (PORCINE) 5000UNITS/ML 1ML VIAL/SYRINGE SC SCH ×2 (08:49→21:08)
[2020-10-06] MEDS: HumaLOG INSULIN (NovoLOG) PER UNIT SC SCH ×4 (08:49→21:00)
[2020-10-06 14:00] VITALS: BP 138/58
--- NOTE | 2020-10-06 17:36 | IPNPDOC ---
Text Note Date of Service The patient was seen on 10/06/20. NOTE SUBJECTIVE: Patient seen and examined at bedside. No acute overnight events reported. OBJECTIVE: VS: Please see below General: NAD, elderly, lying comfortably in bed HEENT: NC/AT, EOMI CV: +S1S2, RRR Chest: CTA B/L Abd: soft, NT, +BS Ext: no edema ASSESSMENT: 79-year-old female with past medical history of diabetes mellitus type 2, hypertension, hyperlipidemia, chronic musculoskeletal pain, fibromyalgia, obstructive sleep apnea, tobacco use disorder, COPD 2 L nasal cannula around the clock, hypothyroidism with history of Graves' disease status post radiation, restless leg syndrome, history of bladder cancer, anxiety admitted to r/o CVA. PLAN: #Left upper ext weakness 2/2 to CVA -Carotid US: b/l stenosis- patient and family to decide regarding plan of care - if they wish to proceed with CEA -Echocardiogram with bubble study pending results -Lipid panel unremarkable, HbA1c 7.5 -C/w simvastatin 20 mg and ASA 81 mg PO daily, plavix daily -Stopped BB as BP dropped too low, allow higher BP -PT/OT: c/w rehab - ARU -Neuro checks, tele #Bilateral carotid stenosis -Carotid US above -family to decide if the wish to proceed with CEA #HTN -BP slightly low today -Holding chlorthalidone, and now BB, resume losartan, #CKD Stage 2-3, LALA resolved -Cr wnl -D/c IVFs, avoid nephrotoxic medications, resume losartan -Daily labs #DM type II -190-200's BS -HbA1c7.5 -C/w ISS and FS AC/HS, consistent carb diet #HLD -Lipid panel unremarkable -C/w simvastatin 20 mg PO daily #Chronic respiratory failure 2/2 to COPD, on 2 L NC ATC at home (noncompliant) -Patient admits to not wearing O2 as prescribed -CXR unremarkable #GERALD -Can use home CPAP #Tobacco use -Nicotine patch #Anxiety -C/w home meds #RLS -C/w home med #Hx of Graves disease s/p radiation, now hypothyroid on synthroid -TSH wnl -C/w synthroid #Chronic pain/ Fibromyalgia -C/w home meds #DVT px -heparin Resolved issues: Diarrhea, nonbloody DISPOSITION: left elbow/shoulder xray pending, vascular f/u pending , possible right CEA VS,Fishbone, I+O VS, Fishbone, I+O Laboratory Tests 10/06/20 05:47 Vital Signs Date Time Temp Pulse Resp B/P (MAP) Pulse Ox O2 Delivery O2 Flow Rate FiO2 10/06/20 14:00 98.6 70 18 138/58 (84) 96 Nasal Cannula 3.0 I&O- Last 24 Hours up to 6 AM 10/06/20 06:00 Intake Total 950 ml Output Total 0 ml Balance 950 ml RANDELL TIAN MD Oct 06, 2020 17:36
[2020-10-06] MEDS: LOSARTAN 25 MG TAB PO SCH (18:22)
[2020-10-06] MEDS: rOPINIRole 1MG TAB PO SCH (21:08)
[2020-10-06] MEDS: SIMVASTATIN 20 MG TAB PO SCH (21:08)
[2020-10-06 22:00] VITALS: BP 164/80
[2020-10-06] MEDS: ALPRAZolam 0.5 MG TAB PO PRN (22:04)
[2020-10-07 06:00] VITALS: BP 132/50
[2020-10-07] MEDS: LEVOTHYROXINE 125MCG TABLET (0.125MG) PO SCH (06:05)
[2020-10-07] MEDS: HEPARIN SOD (PORCINE) 5000UNITS/ML 1ML VIAL/SYRINGE SC SCH (08:46)
[2020-10-07] MEDS: HumaLOG INSULIN (NovoLOG) PER UNIT SC SCH ×2 (08:46→12:45)
[2020-10-07 08:47] VITALS: BP 132/50
[2020-10-07] MEDS: DOCUSATE SODIUM 100MG CAPSULE PO SCH (08:47)
[2020-10-07] MEDS: ASPIRIN 81 MG ENTERIC TAB PO SCH (08:47)
[2020-10-07] MEDS: DULoxetine 30 MG CAP (CYMBALTA) PO SCH (08:47)
[2020-10-07] MEDS: LOSARTAN 25 MG TAB PO SCH (08:47)
[2020-10-07] MEDS: CLOPIDOGREL 75 MG TAB PO SCH (08:47)
[2020-10-07] MEDS: GABAPENTIN 100 MG CAP PO SCH (08:47)
--- NOTE | 2020-10-07 13:11 | IPNPDOC ---
Text Note Date of Service The patient was seen on 10/07/20. NOTE DISCHARGE ADDENDUM: SUBJECTIVE: Patient seen and examined at bedside. No acute overnight events reported. OBJECTIVE: VS: Please see below General: NAD, elderly, lying comfortably in bed HEENT: NC/AT, EOMI CV: +S1S2, RRR Chest: CTA B/L Abd: soft, NT, +BS Ext: no edema ASSESSMENT: 79-year-old female with past medical history of diabetes mellitus type 2, hypertension, hyperlipidemia, chronic musculoskeletal pain, fibromyalgia, obstructive sleep apnea, tobacco use disorder, COPD 2 L nasal cannula around the clock, hypothyroidism with history of Graves' disease status post radiation, restless leg syndrome, history of bladder cancer, anxiety admitted to r/o CVA. PLAN: #Left upper ext weakness 2/2 to CVA -Carotid US: b/l stenosis- patient and family agreed to CEA - will be scheduling as outpatient - d/w vascular - assistance appreciated -C/w simvastatin 20 mg and ASA 81 mg PO daily, plavix daily -PT/OT: c/w rehab - ARU #Bilateral carotid stenosis -Carotid US above -outpatient CEA #HTN -resumed losartan -Holding chlorthalidone, and BB #LALA/CKD Stage 2-3 -Cr wnl - resume losartan -Daily labs #DM type II -HbA1c7.5 #HLD -Lipid panel unremarkable -C/w simvastatin 20 mg PO daily #Chronic respiratory failure 2/2 to COPD, on 2 L NC ATC at home (noncompliant) -Patient admits to not wearing O2 as prescribed #GERALD -Can use home CPAP #Tobacco use -Nicotine patch #Anxiety -C/w home meds #RLS -C/w home med #Hx of Graves disease s/p radiation, now hypothyroid on synthroid -TSH wnl -C/w synthroid #Chronic pain/ Fibromyalgia -C/w home meds DISPOSITION: discharging to ARU today VS,Fishbone, I+O VS, Fishbone, I+O Vital Signs Date Time Temp Pulse Resp B/P (MAP) Pulse Ox O2 Delivery O2 Flow Rate FiO2 10/07/20 09:00 2.0 10/07/20 08:47 132/50 10/07/20 06:00 97.1 72 17 94 Nasal Cannula I&O- Last 24 Hours up to 6 AM 10/07/20 06:00 Intake Total 810 ml Output Total 0 ml Balance 810 ml RANDELL TIAN MD Oct 07, 2020 13:11
[2020-10-07 14:00] VITALS: BP 164/74
[2020-10-07] MEDS: ALPRAZolam 0.5 MG TAB PO PRN (14:42)
--- NOTE | 2020-10-07 15:47 | IPNPDOC ---
Date Seen The patient was seen on 10/07/20. Progress Note Patient seen and examined with her son's Stu today. We had a lengthy discussion again about carotid endarterectomy, and both the patient and her son are agreeable to proceed. We will schedule this within the next month and get appropriate clearance first. I do not think it is emergent, but we would like to do it sooner rather than later for stroke prevention. She will remain on best medical management with aspirin and Plavix and statin. I did discuss with them that it is important for her to go to rehabilitation to continue her recovery with her left-sided weakness. She has regained a lot of function in the left upper extremity, and this is very encouraging that she will continue to improve. They are agreeable for rehabilitation placement as well. We appreciate the opportunity to produce pain in the care of this patient. VS, I&O, 24H, Fishbone Vital Signs/I&O Vital Signs Date Time Temp Pulse Resp B/P (MAP) Pulse Ox O2 Delivery O2 Flow Rate FiO2 10/07/20 14:00 97.3 97 13 164/74 (104) 94 Nasal Cannula 2.0 I&O- Last 24 Hours up to 6 AM 10/07/20 06:00 Intake Total 810 ml Output Total 0 ml Balance 810 ml Laboratory Data 24H LABS Laboratory Tests 2 10/06/20 16:06: Bedside Glucose (Misc Panel) 281H 10/06/20 21:04: Bedside Glucose (Misc Panel) 248H 10/07/20 07:58: Bedside Glucose (Misc Panel) 237H 10/07/20 11:10: Bedside Glucose (Misc Panel) 302H ROSEMARY TAPIA MD Oct 07, 2020 15:47
== END 2020-10-07 16:33 | DRG 65 ==
LOC: M ED 11:58 → M ED INP 14:16 → M MSPAV 17:13
PROVIDERS: ADMIT Internal Medicine; ATTEND Internal Medicine
DX: I63.231 Cerebral infarction due to unspecified occlusion or stenosis of right carotid arteries (principal); J96.10 Chronic respiratory failure, unspecified whether with hypoxia or hypercapnia; N17.9 Acute kidney failure, unspecified; N18.30 Chronic kidney disease, stage 3 unspecified; I12.9 Hypertensive chronic kidney disease with stage 1 through stage 4 chronic kidney disease, or unspecified chronic kidney disease; E11.9 Type 2 diabetes mellitus without complications; J44.9 Chronic obstructive pulmonary disease, unspecified; G47.33 Obstructive sleep apnea (adult) (pediatric); M79.7 Fibromyalgia; F17.200 Nicotine dependence, unspecified, uncomplicated; E03.9 Hypothyroidism, unspecified; F41.9 Anxiety disorder, unspecified; G25.81 Restless legs syndrome; Z85.51 Personal history of malignant neoplasm of bladder; E78.5 Hyperlipidemia, unspecified; Z79.82 Long term (current) use of aspirin; Z79.899 Other long term (current) drug therapy; Z88.0 Allergy status to penicillin; Z88.2 Allergy status to sulfonamides; Z91.19 Patient's noncompliance with other medical treatment and regimen

== ENCOUNTER 2020-10-07 13:56 | Inpatient (IN) | payer MEDICARE, BC ==
[~2020-10-07] VITALS: Ht 154.9 cm; Wt 88.9 kg
[~2020-10-07 13:56] MED LIST changes: +ALPR1TAB3 PO; +ASPI81TAEC PO; +BD I SUBQ; +CLOP75TA2 PO; +COMMENTS; +GABA-1171 PO; +LOVA10TA PO; +SYNT125T PO
[2020-10-07] MEDS ORDERED: GLUCAGON INJ 1MG VIAL SC PRN (14:45)
[2020-10-07] MEDS ORDERED: BISACODYL 10 MG SUPP PR PRN (14:45)
[2020-10-07] MEDS ORDERED: DEXTROSE 50% 50 ML SYRINGE IV PRN (14:45)
[2020-10-07] MEDS ORDERED: GLUCOSE 4GM CHEW TABLET PO PRN (14:45)
[2020-10-07] MEDS: REMEDY PHYTOPLEX Z-GUARD PASTE 113GM TUBE (FROM STOREROOM PRODUCT) TOP SCH ×2 (16:00→20:36)
[2020-10-07 16:40] VITALS: BP 178/80
[2020-10-07 18:10] VITALS: BP 184/72
[2020-10-07] MEDS: HumaLOG INSULIN (NovoLOG) PER UNIT SC SCH ×2 (18:33→21:00)
[2020-10-07 20:00] VITALS: BP 162/70
[2020-10-07] MEDS: ALPRAZolam 0.5 MG TAB PO PRN (20:35)
[2020-10-07] MEDS: rOPINIRole 1MG TAB PO SCH (20:35)
[2020-10-07] MEDS: HEPARIN SOD (PORCINE) 5000UNITS/ML 1ML VIAL/SYRINGE SC SCH (20:35)
[2020-10-07] MEDS: SENNA 8.6 MG TAB (SENOKOT) PO SCH (20:35)
[2020-10-07] MEDS: DOCUSATE SODIUM 100MG CAPSULE PO SCH (20:35)
[2020-10-07] MEDS: SIMVASTATIN 20 MG TAB PO SCH (20:36)
[2020-10-07] MEDS: LIDOCAINE 5% (LIDODERM) PATCH TD SCH (21:00)
[2020-10-07] MEDS: SODIUM CHLORIDE NASAL 0.65% SPRAY BTL (OCEAN) SCH (21:45)
[2020-10-07] MEDS: POLYVINYL ALCOHOL OPHTH SOLN 15 ML(LIQUITEARS) OU SCH (21:45)
[2020-10-07] MEDS: guaiFENesin 200 MG TAB PO SCH (21:45)
[2020-10-07] MEDS: FLUTICASONE PROP 0.05% NASAL SPRAY 16 GM (FLONASE) NARES SCH (21:45)
--- NOTE | 2020-10-07 21:46 | HPEPDOC ---
Sports Therapist Note DATE OF ADMISSION: 10/07/20 DATE OF SERVICE: 10/07/20 TIME OF ADMISSION: Please refer to physician's admission order. SOURCE OF ADMISSION INFORMATION: [facility] record and patient CHIEF COMPLAINT: stroke HISTORY OF PRESENT ILLNESS: 79F pmh COPD on home 02, HTN, DM, hypothyroidism, GERALD fibromyalgia, restless leg syndrome, bladder cancer, anxiety who presented to [facility] ED on 10-01-20 after developing left arm numbness and weakness. CTH did not show acute hemorrhage, however MRI brain showed, "right frontal and parietal lobes, consistent with acute infarcts. There is a tiny focus of diffusion hyperintensity within the left parietal subcortical white matter, consistent with an acute or subacute infarct. Embolic disease is considered." Carotid US were obtained showing severe stenosis of the right ICA for which she was maintained on ASA and Plavix. In add ition discussions were had with inhouse vascular surgery to perform a CEA which was postponed per patient and sons request. She had hyperglycemia and elevated BPs with persistent LUE weakness, was evaluated by therapy found to have impairments in mobility and ADLs and deemed medically appropriate for discharge to ARU on 10-07-20. REVIEW OF SYSTEMS: The following is a completed review of systems and has been reviewed. Review of systems otherwise unremarkable. PAIN: Patient self reports left elbow soreness EYES: No recent vision changes EARS, NOSE, & THROAT: No throat pain, or new dysphagia but does say at home food sometimes sticks to back of throat, + rhinorrhea CARDIOVASCULAR: Denies chest pain or palpitations PULMONARY: Denies worsening, shortness of breath- +cough GASTROINTESTINAL: Denies constipation/diarrhea GENITOURINARY: denies dysuria MUSCULOSKELETAL: LUE weakness NEUROLOGICAL: left UE paresis, +fibromyalgia HEMATOLOGICAL: denies easy bruising SKIN: denies rash PSYCHIATRIC: Unremarkable All other review of systems found to be negative. PAST MEDICAL HISTORY: as per HPI PAST SURGICAL HISTORY: thyroid radiation bladder stent, cholecystectomy, bilat bunionectomy, cystoscopy, bilat cataracts ALLERGIES: Please see below. MEDICATIONS: Please see below. SOCIAL HISTORY: former smoker, no etoh/illicit drugs DIET: fluid restrict, consistent carbs PHYSICAL EXAMINATION: VITAL SIGNS: Please see below. GENERAL: Pleasant and cooperative. No acute distress. HEENT: PERRL. Extraocular movements intact. Clear conjunctiva, mild left sided facial droop CARDIOVASCULAR: Regular rate and rhythm. No murmurs, rubs, or gallops LUNGS: +scattered wheeze and rhonchi ABDOMEN: Soft, nontender, nondistended. Positive bowel sounds. Normal active bowel sounds. NEUROLOGICAL: Alert and oriented times three. Cranial nerves II through XII grossly intact. Sensation grossly intact in all 4limbs EXTREMITIES: 5\\5 strength right upper extremities. 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 5/5 strength in left lower extremity. +TTP left upper trap SKIN: blanchable sacral erythema LABORATORY DATA: Please see below. IMAGING: Imaging documentation personally reviewed by record FUNCTIONAL STATUS: Premorbid: Modified Independent with all activities of daily life as well as mobility, occasional benjamin of RW On Admission: contact guard to min assist for functional transfers, bed mobility, GOALS: Mod-i community distances with RW for ambulaiton, functional transfers, stairs, dressing, bathing, toileting ASSESSMENT:79-year-old F with past medical history of HTN, COPD who presents status post right frontal-parietal strokes in setting of right ICA stenosis PLAN: 1. 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 NEuo- s/p right parietal and frontal stroke in setting of severe right ICA stenosis- c/u ASA and plavix, possible CEA to be done outpatient, patient aware that she can change her mind at any time and will have vascular return if needed to discuss option again -fibromyalgia c/u cymbalta and gabapentin -restless leg- requip 3. cardiac- hx of HTN, c/u home meds, amlodipine added for elevated BPs -recent echo showing grade 1 diastolic CHF, will fluid restrict, daily weights, medicine consulted to assist in overall management -HLD c/u statin 4. Resp- COPD on 02, will start duonebs and guaifnesain for congestion, patient believes her sinuses are dripping into back of throat causing cough, will add claritin, flonase, NS nasal drops, and artifical tears for her itchy dry eyes -monitor for infection 5. Endo- hx of DM c/u ISS, consistent carb -hypothyroidism c/u synthroid 6. DVT ppx- heparin 7. GI ppx- protonix 8. GU_ monitor PVRs 9. Pain- tylenol prn, lidoderm to neck 10. Dispo tbd POST ADMISSION PHYSICIAN EVALUATION: Medical and functional status: Description of medical status, medical assessment: As above. Rehabilitation diagnosis and current and prior cold morbid medical conditions as above. Risk of complications and plans to mitigate them as above. Description of functional status current status is as above. Prior status as above. Status compared to preadmission: There are no clinically significant differences between the patient's current status and the information described on the preadmission screening document. Treatment plan anticipated: Treatment plan is as described above. Required disciplines including physical therapy, occupational therapy, others as noted above. Intensity of services: 3 hours a day, 6 days a week. Special considerations: There are no specific special or safety considerations that would likely preclude immediate implementation of an intensive rehabilitation program or subsequently influence the plan of care. ATTESTATION: Considering all the information above, it is my best judgment that this patient requires intensive rehabilitation therapy as described above and an inpatient hospital environment due to the complexity of nursing, medical, and rehabilitation needs required by the patient. Furthermore, this patient can reasonably be expected to participate in an benefit from an inpatient rehabilitation stay with an interdisciplinary team approach to the delivery of rehabilitation care under the direction and supervision of rehabilitation physician PROGNOSIS: Excellent ESTIMATED LENGTH OF STAY:14-18 days. PROJECTED DISCHARGE DESTINATION: Home with family support and any durable medical equipment required to increase functional safety and mobility TIME SPENT COUNSELING AND COORDINATING INITIAL CARE: Greater than 70 minutes. Vital Signs Vital Sign - Last 24 Hours 10/07/20 10/07/20 10/07/20 16:40 18:10 18:32 Temp 97.8 Pulse 95 80 Resp 24 B/P (MAP) 178/80 (112) 184/72 (109) 184/72 Pulse Ox 97 O2 Delivery Nasal Cannula O2 Flow Rate 2.0 Laboratory Data Labs 24H Laboratory Tests 2 10/07/20 18:18: Bedside Glucose (Misc Panel) 183H 10/07/20 19:42: Bedside Glucose (Misc Panel) 207H FSBS Laboratory Tests Test 10/07/20 18:18 10/07/20 19:42 Range/Units Bedside Glucose (Misc Panel) 183 207 83-110 MG/DL Home Medications Scheduled Aspirin (Aspirin EC) 81 Mg Tablet.dr, 81 MG PO DAILY Clopidogrel Bisulfate (Clopidogrel) 75 Mg Tablet, 75 MG PO DAILY Duloxetine Hcl (Duloxetine HCl) 60 Mg Capsule.dr, 60 MG PO DAILY, (Reported) Gabapentin (Gabapentin) 100 Mg Capsule, 100 MG PO DAILY, (Reported) Levothyroxine Sodium (Synthroid) 125 Mcg Tablet, 125 MCG PO DAILY, (Reported) Losartan Potassium (Losartan Potassium) 25 Mg Tablet, 25 MG PO DAILY, (Reported) Lovastatin (Lovastatin) 10 Mg Tablet, 10 MG PO QPM, (Reported) Ropinirole HCl (Ropinirole HCl) 0.5 Mg Tablet, 1 MG PO QHS, (Reported) Scheduled PRN Alprazolam (Alprazolam) 1 Mg Tablet, 1 TAB PO BID PRN for ANXIETY, (Reported) Loperamide HCl (Loperamide) 2 Mg Capsule, 2 MG PO TIDP PRN for DIARRHEA, (Reported) Allergies Coded Allergies: Penicillins (Verified Allergy, Unknown, 10/01/20) Sulfa (Sulfonamide Antibiotics) (Verified Adverse Reaction, Mild, mouth sores, 10/01/20) A-FIB/CHADSVASC A-FIB History Current/History of A-Fib/PAF?: No Current PO Anticoag Therapy: No MAYI CLINTON MD Oct 07, 2020 21:46
[2020-10-08] MEDS: LEVOTHYROXINE 125MCG TABLET (0.125MG) PO SCH (05:46)
[2020-10-08 06:00] VITALS: BP 157/69
[2020-10-08] MEDS: IPRATROPIUM 0.5MG/ALBUTEROL 2.5MG INH SOL UD 3ML (DUONEB) NEB SCH ×3 (07:33→19:34)
[2020-10-08 07:58] LABS: BASO # 0.1 10^3/uL (0.0-0.2); BASO % 0.5 % (0.0-1.0); EOS # 0.4 10^3/uL (0.0-0.5); EOS % 3.8 % (0.0-3.0); HEMATOCRIT 43.4 % (36.0-47.0); HEMOGLOBIN 12.9 g/dl (12.0-15.5); LYMPH # 1.9 10^3/uL (1.5-5.0); LYMPH % 18.2 % (24.0-44.0); MEAN CORPUSCULAR HEMOGLOBIN 28.7 pg (27.0-33.0); MEAN CORPUSCULAR HGB CONC 29.7 g/dl (32.0-36.5); MEAN CORPUSCULAR VOLUME 96.7 fl (80.0-96.0); MONO # 0.7 10^3/uL (0.0-0.8); MONO % 6.8 % (0.0-5.0); NEUTROPHILS # 7.2 10^3/uL (1.5-8.5); PLATELET COUNT, AUTOMATED 161 10^3/uL (150-450); RED BLOOD COUNT 4.49 10^6/uL (4.00-5.40); WHITE BLOOD COUNT 10.3 10^3/uL (4.0-10.0)
[2020-10-08] MEDS: FLUTICASONE PROP 0.05% NASAL SPRAY 16 GM (FLONASE) NARES SCH ×2 (08:08→21:06)
[2020-10-08] MEDS: DULoxetine 30 MG CAP (CYMBALTA) PO SCH (08:09)
[2020-10-08] MEDS: guaiFENesin 200 MG TAB PO SCH ×3 (08:09→21:05)
[2020-10-08] MEDS: ALPRAZolam 0.5 MG TAB PO PRN ×2 (08:09→21:05)
[2020-10-08] MEDS: HumaLOG INSULIN (NovoLOG) PER UNIT SC SCH ×4 (08:09→21:00)
[2020-10-08] MEDS: SODIUM CHLORIDE NASAL 0.65% SPRAY BTL (OCEAN) SCH ×3 (08:10→21:06)
[2020-10-08] MEDS: DOCUSATE SODIUM 100MG CAPSULE PO SCH ×2 (08:10→21:05)
[2020-10-08] MEDS: GABAPENTIN 100 MG CAP PO SCH (08:10)
[2020-10-08] MEDS: ASPIRIN 81 MG ENTERIC TAB PO SCH (08:10)
[2020-10-08] MEDS: PANTOPRAZOLE 40MG TAB (PROTONIX) PO SCH (08:10)
[2020-10-08] MEDS: LOSARTAN 25 MG TAB PO SCH (08:12)
[2020-10-08] MEDS: POLYVINYL ALCOHOL OPHTH SOLN 15 ML(LIQUITEARS) OU SCH ×4 (08:12→21:06)
[2020-10-08] MEDS: HEPARIN SOD (PORCINE) 5000UNITS/ML 1ML VIAL/SYRINGE SC SCH ×2 (08:12→21:04)
[2020-10-08] MEDS: CLOPIDOGREL 75 MG TAB PO SCH (08:12)
[2020-10-08] MEDS: **NOTE PATIENT COMMENT** MISC XX SCH (08:13)
[2020-10-08] MEDS: REMEDY PHYTOPLEX Z-GUARD PASTE 113GM TUBE (FROM STOREROOM PRODUCT) TOP SCH ×3 (08:13→21:05)
[2020-10-08 09:36] LABS: ALBUMIN 3.2 GM/DL (3.2-5.2); BILIRUBIN,TOTAL 0.3 MG/DL (0.2-1.0); CALCIUM LEVEL 9.6 MG/DL (8.8-10.2); CREATININE FOR GFR 1.11 MG/DL (0.55-1.30); GLOMERULAR FILTRATION RATE 50.6 (>39); POTASSIUM SERUM 4.1 MEQ/L (3.5-5.1)
[2020-10-08] MEDS: LORATADINE 10 MG TAB PO SCH (12:36)
[2020-10-08 14:00] VITALS: BP 130/72
[2020-10-08 20:00] VITALS: BP 118/53
[2020-10-08] MEDS: LIDOCAINE 5% (LIDODERM) PATCH TD SCH (21:04)
[2020-10-08] MEDS: SIMVASTATIN 20 MG TAB PO SCH (21:05)
[2020-10-08] MEDS: rOPINIRole 1MG TAB PO SCH (21:05)
[2020-10-08] MEDS: LEVEMIR (INSULIN DETEMIR) 1 UNITS/0.01ML SC SCH (21:05)
[2020-10-08] MEDS: SENNA 8.6 MG TAB (SENOKOT) PO SCH (21:05)
[2020-10-09 05:55] VITALS: BP 151/71
[2020-10-09] MEDS: LEVOTHYROXINE 125MCG TABLET (0.125MG) PO SCH (05:56)
[2020-10-09] MEDS: IPRATROPIUM 0.5MG/ALBUTEROL 2.5MG INH SOL UD 3ML (DUONEB) NEB SCH ×3 (07:42→20:15)
[2020-10-09] MEDS: HEPARIN SOD (PORCINE) 5000UNITS/ML 1ML VIAL/SYRINGE SC SCH ×2 (08:16→20:56)
[2020-10-09] MEDS: HumaLOG INSULIN (NovoLOG) PER UNIT SC SCH ×4 (08:16→20:57)
[2020-10-09] MEDS: LORATADINE 10 MG TAB PO SCH (08:17)
[2020-10-09] MEDS: DOCUSATE SODIUM 100MG CAPSULE PO SCH ×2 (08:17→20:56)
[2020-10-09] MEDS: PANTOPRAZOLE 40MG TAB (PROTONIX) PO SCH (08:17)
[2020-10-09] MEDS: guaiFENesin 200 MG TAB PO SCH ×3 (08:17→20:56)
[2020-10-09] MEDS: CLOPIDOGREL 75 MG TAB PO SCH (08:17)
[2020-10-09] MEDS: ASPIRIN 81 MG ENTERIC TAB PO SCH (08:17)
[2020-10-09] MEDS: DULoxetine 30 MG CAP (CYMBALTA) PO SCH (08:17)
[2020-10-09] MEDS: GABAPENTIN 100 MG CAP PO SCH (08:17)
[2020-10-09] MEDS: REMEDY PHYTOPLEX Z-GUARD PASTE 113GM TUBE (FROM STOREROOM PRODUCT) TOP SCH ×3 (08:18→21:00)
[2020-10-09] MEDS: SODIUM CHLORIDE NASAL 0.65% SPRAY BTL (OCEAN) SCH ×3 (08:18→20:58)
[2020-10-09] MEDS: FLUTICASONE PROP 0.05% NASAL SPRAY 16 GM (FLONASE) NARES SCH ×2 (08:18→20:58)
[2020-10-09] MEDS: LOSARTAN 25 MG TAB PO SCH (08:18)
[2020-10-09] MEDS: POLYVINYL ALCOHOL OPHTH SOLN 15 ML(LIQUITEARS) OU SCH ×4 (08:18→20:58)
[2020-10-09] MEDS: **NOTE PATIENT COMMENT** MISC XX SCH (08:21)
[2020-10-09 14:00] VITALS: BP 126/58
[2020-10-09 20:00] VITALS: BP 143/96
[2020-10-09] MEDS: SENNA 8.6 MG TAB (SENOKOT) PO SCH (20:56)
[2020-10-09] MEDS: SIMVASTATIN 20 MG TAB PO SCH (20:56)
[2020-10-09] MEDS: rOPINIRole 1MG TAB PO SCH (20:56)
[2020-10-09] MEDS: LEVEMIR (INSULIN DETEMIR) 1 UNITS/0.01ML SC SCH (20:57)
[2020-10-09] MEDS: LIDOCAINE 5% (LIDODERM) PATCH TD SCH (20:58)
[2020-10-09] MEDS: ALPRAZolam 0.5 MG TAB PO PRN (21:02)
[2020-10-10] MEDS: LEVOTHYROXINE 125MCG TABLET (0.125MG) PO SCH (05:09)
[2020-10-10 06:00] VITALS: BP 116/55
[2020-10-10] MEDS: IPRATROPIUM 0.5MG/ALBUTEROL 2.5MG INH SOL UD 3ML (DUONEB) NEB SCH ×3 (07:11→19:32)
[2020-10-10] MEDS: ASPIRIN 81 MG ENTERIC TAB PO SCH (07:44)
[2020-10-10] MEDS: HumaLOG INSULIN (NovoLOG) PER UNIT SC SCH ×4 (07:44→20:15)
[2020-10-10] MEDS: DOCUSATE SODIUM 100MG CAPSULE PO SCH ×2 (07:44→20:14)
[2020-10-10] MEDS: LOSARTAN 25 MG TAB PO SCH (07:44)
[2020-10-10] MEDS: LORATADINE 10 MG TAB PO SCH (07:45)
[2020-10-10] MEDS: PANTOPRAZOLE 40MG TAB (PROTONIX) PO SCH (07:45)
[2020-10-10] MEDS: DULoxetine 30 MG CAP (CYMBALTA) PO SCH (07:45)
[2020-10-10] MEDS: CLOPIDOGREL 75 MG TAB PO SCH (07:45)
[2020-10-10] MEDS: HEPARIN SOD (PORCINE) 5000UNITS/ML 1ML VIAL/SYRINGE SC SCH ×2 (07:46→20:16)
[2020-10-10] MEDS: guaiFENesin 200 MG TAB PO SCH ×3 (07:46→20:14)
[2020-10-10] MEDS: FLUTICASONE PROP 0.05% NASAL SPRAY 16 GM (FLONASE) NARES SCH ×2 (07:46→20:16)
[2020-10-10] MEDS: SODIUM CHLORIDE NASAL 0.65% SPRAY BTL (OCEAN) SCH ×3 (07:46→20:16)
[2020-10-10] MEDS: POLYVINYL ALCOHOL OPHTH SOLN 15 ML(LIQUITEARS) OU SCH ×4 (07:47→20:16)
[2020-10-10] MEDS: REMEDY PHYTOPLEX Z-GUARD PASTE 113GM TUBE (FROM STOREROOM PRODUCT) TOP SCH ×3 (07:48→20:28)
[2020-10-10] MEDS: **NOTE PATIENT COMMENT** MISC XX SCH (07:48)
[2020-10-10] MEDS: GABAPENTIN 100 MG CAP PO SCH (07:50)
--- NOTE | 2020-10-10 10:47 | IPNPDOC ---
PM&R Progress Note DATE OF SERVICE: Oct 10, 2020 Utilization Manager Progress Note Subjective: PAtient reporting she feels well and that she has a cough, but that it is getting better. REVIEW OF SYSTEMS: The following is a completed review of systems and has been reviewed. Review of systems otherwise unremarkable. PAIN: Patient self reports left elbow soreness EYES: No recent vision changes EARS, NOSE, & THROAT: No throat pain, or new dysphagia but does say at home food sometimes sticks to back of throat, + rhinorrhea CARDIOVASCULAR: Denies chest pain or palpitations PULMONARY: Denies worsening, shortness of breath- +cough GASTROINTESTINAL: Denies constipation/diarrhea GENITOURINARY: denies dysuria MUSCULOSKELETAL: LUE weakness NEUROLOGICAL: left UE paresis, +fibromyalgia HEMATOLOGICAL: denies easy bruising SKIN: denies rash PSYCHIATRIC: Unremarkable All other review of systems found to be negative. PHYSICAL EXAMINATION: VITAL SIGNS: Please see below. GENERAL: Pleasant and cooperative. No acute distress. HEENT: PERRL. Extraocular movements intact. Clear conjunctiva, mild left sided facial droop CARDIOVASCULAR: Regular rate and rhythm. No murmurs, rubs, or gallops LUNGS: +scattered wheeze and rhonchi ABDOMEN: Soft, nontender, nondistended. Positive bowel sounds. Normal active bowel sounds. NEUROLOGICAL: Alert and oriented times three. Cranial nerves II through XII grossly intact. Sensation grossly intact in all 4limbs EXTREMITIES: 5\5 strength right upper extremities. 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 5/5 strength in left lower extremity. +TTP left upper trap SKIN: blanchable sacral erythema ASSESSMENT:79-year-old F with past medical history of HTN, COPD who presents status post right frontal-parietal strokes in setting of right ICA stenosis PLAN: 1. 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 NEuro- s/p right parietal and frontal stroke in setting of severe right ICA stenosis- c/u ASA and plavix, possible CEA to be done outpatient, patient aware that she can change her mind at any time and will have vascular return if needed to discuss option again -fibromyalgia c/u cymbalta and gabapentin -restless leg- requip 3. cardiac- hx of HTN, c/u home meds, amlodipine added for elevated BPs -recent echo showing grade 1 diastolic CHF, will fluid restrict, daily weights, medicine consulted to assist in overall management -HLD c/u statin 4. Resp- COPD on , will start duonebs and guaifnesain for congestion, patient believes her sinuses are dripping into back of throat causing cough, will add claritin, flonase, NS nasal drops, and artifical tears for her itchy dry eyes -monitor for infection 5. Endo- hx of DM c/u ISS, consistent carb -hypothyroidism c/u synthroid 6. DVT ppx- heparin 7. GI ppx- protonix 8. - monitor PVRs 9. Pain- tylenol prn, lidoderm to neck 10. Dispo tbd Allergies Coded Allergies: Penicillins (Verified Allergy, Unknown, 10/01/20) Sulfa (Sulfonamide Antibiotics) (Verified Adverse Reaction, Mild, mouth sores, 10/01/20) Vital Signs Vital Signs Date Time Temp Pulse Resp B/P (MAP) Pulse Ox O2 Delivery O2 Flow Rate FiO2 10/10/20 08:15 2.0 10/10/20 07:45 84 116/55 10/10/20 06:00 97.6 18 96 Nasal Cannula Laboratory Data Labs 24H Laboratory Tests 2 10/09/20 11:13: Bedside Glucose (Misc Panel) 289H 10/09/20 16:13: Bedside Glucose (Misc Panel) 228H 10/09/20 19:37: Bedside Glucose (Misc Panel) 311H 10/10/20 05:11: Bedside Glucose (Misc Panel) 167H Current Medications Current Medications Current Medications Medications (Trade) Dose Ordered Sig/Mandi Route PRN Reason Start Time Stop Time Status Last Admin Dose Admin Acetaminophen (Tylenol Tab) 650 mg Q4HP PRN PO fever/MILD PAIN (PS 1-4) 10/07/20 14:45 Albuterol/ Ipratropium (Duoneb (Ipr 0.5mg/Alb 2.5mg)) 3 ml RTID NEB 10/07/20 20:00 10/10/20 07:11 Alprazolam (Xanax) 1 mg BIDP PRN PO ANXIETY 10/07/20 14:45 10/09/20 21:02 Amlodipine Besylate (Norvasc) 10 mg DAILY PO 10/08/20 11:15 10/10/20 07:45 Artificial Tears (Akwa Tears) 2 drop QID OU 10/07/20 21:45 10/10/20 07:47 Aspirin (Ecotrin) 81 mg DAILY PO 10/08/20 09:00 10/10/20 07:44 Bisacodyl (Dulcolax Suppository) 10 mg DAILYPRN PRN [place] CONSTIPATION 10/07/20 14:45 Clopidogrel Bisulfate (PLAVix) 75 mg DAILY PO 10/08/20 09:00 10/10/20 07:45 Dextrose (Dextrose 50%) 25 ml ASDIRECTED PRN IV SEE LABEL COMMENTS 10/07/20 14:45 Docusate Sodium (Colace) 100 mg BID PO 10/07/20 21:00 10/10/20 07:44 Duloxetine HCl (Cymbalta) 60 mg DAILY PO 10/08/20 09:00 10/10/20 07:45 Fluticasone Propionate (Flonase 0.05% Nasal [place]) 1 spray BID NARES 10/07/20 21:45 10/10/20 07:46 Gabapentin (Neurontin) 100 mg DAILY PO 10/08/20 09:00 10/10/20 07:50 Glucagon (Glucagon) 1 mg ASDIRECTED PRN SC SEE LABEL COMMENTS 10/07/20 14:45 Glucose (Glucose) 16 GM ASDIRECTED PRN PO SEE LABEL COMMENTS 10/07/20 14:45 Guaifenesin (Robitussin Tab) 400 mg TID PO 10/07/20 21:45 10/10/20 07:46 Heparin Sodium (Porcine) (Heparin) 5,000 units Q12H SC 10/07/20 21:00 10/10/20 07:46 Home Med (Med Rec Complete!) ASDIRECTED XX 10/07/20 18:30 10/07/20 18:25 DC Insulin Detemir (Levemir Insulin) 5 units QHS SC 10/08/20 21:00 10/09/20 20:57 Insulin Human Lispro (HumaLOG INSULIN) SEE PROTOCOL TABLE AC SC 10/07/20 17:30 10/10/20 07:44 Insulin Human Lispro (HumaLOG INSULIN) SEE PROTOCOL TABLE QHS SC 10/07/20 21:00 10/09/20 20:57 Levothyroxine Sodium (Synthroid) 125 mcg DAILY@06 PO 10/08/20 06:00 10/10/20 05:09 Lidocaine (Lidoderm Patch) 1 patch QHS TD 10/07/20 21:00 10/09/20 20:58 Loratadine (Claritin) 10 mg DAILY PO 10/08/20 11:15 10/10/20 07:45 Losartan Potassium (Cozaar) 25 mg DAILY PO 10/08/20 09:00 10/10/20 07:44 Non-Formulary Medication ( See Comment Field Below ) REMOVE LIDODERM PATCH DAILY XX 10/08/20 09:00 10/10/20 07:48 Pantoprazole Sodium (Protonix) 40 mg DAILY PO 10/08/20 09:00 10/10/20 07:45 Ropinirole HCl (Requip) 1 mg QHS PO 10/07/20 21:00 10/09/20 20:56 Senna (Senokot) 1 tab QHS PO 10/07/20 21:00 10/09/20 20:56 Simvastatin (Zocor) 20 mg QHS PO 10/07/20 21:00 10/09/20 20:56 Sodium Chloride ([place] Nasal [place]) 2 spray TID NA 10/07/20 21:45 10/10/20 07:46 MAYI CLINTON MD Oct 10, 2020 10:47
[2020-10-10 11:11] LABS: BASO # 0.1 10^3/uL (0.0-0.2); BASO % 0.4 % (0.0-1.0); EOS # 0.2 10^3/uL (0.0-0.5); HEMATOCRIT 40.9 % (36.0-47.0); HEMOGLOBIN 12.3 g/dl (12.0-15.5); LYMPH # 1.4 10^3/uL (1.5-5.0); LYMPH % 11.8 % (24.0-44.0); MEAN CORPUSCULAR HEMOGLOBIN 28.8 pg (27.0-33.0); MEAN CORPUSCULAR HGB CONC 30.1 g/dl (32.0-36.5); MEAN CORPUSCULAR VOLUME 95.8 fl (80.0-96.0); MONO # 0.6 10^3/uL (0.0-0.8); MONO % 4.9 % (0.0-5.0); NEUTROPHILS # 9.2 10^3/uL (1.5-8.5); PLATELET COUNT, AUTOMATED 168 10^3/uL (150-450); RED BLOOD COUNT 4.27 10^6/uL (4.00-5.40); WHITE BLOOD COUNT 11.5 10^3/uL (4.0-10.0)
[2020-10-10 11:34] LABS: CALCIUM LEVEL 9.2 MG/DL (8.8-10.2); CREATININE FOR GFR 1.13 MG/DL (0.55-1.30); GLOMERULAR FILTRATION RATE 49.6 (>39); POTASSIUM SERUM 4.6 MEQ/L (3.5-5.1)
[2020-10-10 14:00] VITALS: BP 140/60
[2020-10-10 20:00] VITALS: BP 147/86
[2020-10-10] MEDS: rOPINIRole 1MG TAB PO SCH (20:14)
[2020-10-10] MEDS: SENNA 8.6 MG TAB (SENOKOT) PO SCH (20:15)
[2020-10-10] MEDS: SIMVASTATIN 20 MG TAB PO SCH (20:15)
[2020-10-10] MEDS: LEVEMIR (INSULIN DETEMIR) 1 UNITS/0.01ML SC SCH (20:16)
[2020-10-10] MEDS: LIDOCAINE 5% (LIDODERM) PATCH TD SCH (20:17)
[2020-10-10] MEDS: ALPRAZolam 0.5 MG TAB PO PRN (20:28)
[2020-10-11] MEDS: LEVOTHYROXINE 125MCG TABLET (0.125MG) PO SCH (05:14)
[2020-10-11 06:00] VITALS: BP 160/80
[2020-10-11] MEDS: ASPIRIN 81 MG ENTERIC TAB PO SCH (08:28)
[2020-10-11] MEDS: HumaLOG INSULIN (NovoLOG) PER UNIT SC SCH ×4 (08:28→21:25)
[2020-10-11] MEDS: LORATADINE 10 MG TAB PO SCH (08:28)
[2020-10-11] MEDS: PANTOPRAZOLE 40MG TAB (PROTONIX) PO SCH (08:28)
[2020-10-11] MEDS: guaiFENesin 200 MG TAB PO SCH ×3 (08:29→21:26)
[2020-10-11] MEDS: DOCUSATE SODIUM 100MG CAPSULE PO SCH ×2 (08:29→21:26)
[2020-10-11] MEDS: DULoxetine 30 MG CAP (CYMBALTA) PO SCH (08:29)
[2020-10-11] MEDS: GABAPENTIN 100 MG CAP PO SCH (08:29)
[2020-10-11] MEDS: CLOPIDOGREL 75 MG TAB PO SCH (08:29)
[2020-10-11] MEDS: FLUTICASONE PROP 0.05% NASAL SPRAY 16 GM (FLONASE) NARES SCH ×2 (08:30→21:27)
[2020-10-11] MEDS: SODIUM CHLORIDE NASAL 0.65% SPRAY BTL (OCEAN) SCH ×3 (08:30→21:27)
[2020-10-11] MEDS: POLYVINYL ALCOHOL OPHTH SOLN 15 ML(LIQUITEARS) OU SCH ×4 (08:30→21:27)
[2020-10-11] MEDS: REMEDY PHYTOPLEX Z-GUARD PASTE 113GM TUBE (FROM STOREROOM PRODUCT) TOP SCH ×3 (08:30→21:27)
[2020-10-11] MEDS: HEPARIN SOD (PORCINE) 5000UNITS/ML 1ML VIAL/SYRINGE SC SCH ×2 (08:30→21:25)
[2020-10-11] MEDS: **NOTE PATIENT COMMENT** MISC XX SCH (08:31)
[2020-10-11] MEDS: LOSARTAN 25 MG TAB PO SCH (08:31)
[2020-10-11] MEDS: IPRATROPIUM 0.5MG/ALBUTEROL 2.5MG INH SOL UD 3ML (DUONEB) NEB SCH ×3 (09:07→20:59)
[2020-10-11 14:00] VITALS: BP 138/80
[2020-10-11 21:00] VITALS: BP 128/59
[2020-10-11] MEDS: LEVEMIR (INSULIN DETEMIR) 1 UNITS/0.01ML SC SCH (21:24)
[2020-10-11] MEDS: ALPRAZolam 0.5 MG TAB PO PRN (21:26)
[2020-10-11] MEDS: SIMVASTATIN 20 MG TAB PO SCH (21:26)
[2020-10-11] MEDS: rOPINIRole 1MG TAB PO SCH (21:26)
[2020-10-11] MEDS: LIDOCAINE 5% (LIDODERM) PATCH TD SCH (21:26)
[2020-10-11] MEDS: SENNA 8.6 MG TAB (SENOKOT) PO SCH (21:26)
[2020-10-12] MEDS: LEVOTHYROXINE 125MCG TABLET (0.125MG) PO SCH (05:43)
[2020-10-12 06:00] VITALS: BP 161/69
[2020-10-12] MEDS: IPRATROPIUM 0.5MG/ALBUTEROL 2.5MG INH SOL UD 3ML (DUONEB) NEB SCH ×4 (07:17→19:38)
[2020-10-12] MEDS: DOCUSATE SODIUM 100MG CAPSULE PO SCH ×2 (07:54→22:06)
[2020-10-12] MEDS: HEPARIN SOD (PORCINE) 5000UNITS/ML 1ML VIAL/SYRINGE SC SCH ×2 (07:54→22:05)
[2020-10-12] MEDS: guaiFENesin 200 MG TAB PO SCH ×3 (07:54→22:10)
[2020-10-12] MEDS: HumaLOG INSULIN (NovoLOG) PER UNIT SC SCH ×4 (07:54→22:06)
[2020-10-12] MEDS: DULoxetine 30 MG CAP (CYMBALTA) PO SCH (07:55)
[2020-10-12] MEDS: ALPRAZolam 0.5 MG TAB PO PRN ×2 (07:55→22:06)
[2020-10-12] MEDS: FUROSEMIDE 20 MG TAB PO SCH (07:55)
[2020-10-12] MEDS: GABAPENTIN 100 MG CAP PO SCH (07:55)
[2020-10-12] MEDS: ASPIRIN 81 MG ENTERIC TAB PO SCH (07:55)
[2020-10-12] MEDS: LORATADINE 10 MG TAB PO SCH (07:55)
[2020-10-12] MEDS: PANTOPRAZOLE 40MG TAB (PROTONIX) PO SCH (07:56)
[2020-10-12] MEDS: CLOPIDOGREL 75 MG TAB PO SCH (07:56)
[2020-10-12] MEDS: LOSARTAN 25 MG TAB PO SCH (07:56)
[2020-10-12] MEDS: SODIUM CHLORIDE NASAL 0.65% SPRAY BTL (OCEAN) SCH ×3 (07:56→22:07)
[2020-10-12] MEDS: FLUTICASONE PROP 0.05% NASAL SPRAY 16 GM (FLONASE) NARES SCH ×2 (07:57→22:07)
[2020-10-12] MEDS: **NOTE PATIENT COMMENT** MISC XX SCH (07:57)
[2020-10-12] MEDS: POLYVINYL ALCOHOL OPHTH SOLN 15 ML(LIQUITEARS) OU SCH ×4 (07:57→22:08)
[2020-10-12] MEDS: REMEDY PHYTOPLEX Z-GUARD PASTE 113GM TUBE (FROM STOREROOM PRODUCT) TOP SCH ×3 (07:57→22:08)
[2020-10-12 08:06] LABS: BASO # 0.1 10^3/uL (0.0-0.2); BASO % 0.6 % (0.0-1.0); EOS # 0.4 10^3/uL (0.0-0.5); EOS % 3.9 % (0.0-3.0); HEMATOCRIT 39.9 % (36.0-47.0); HEMOGLOBIN 11.8 g/dl (12.0-15.5); LYMPH # 1.4 10^3/uL (1.5-5.0); LYMPH % 12.5 % (24.0-44.0); MEAN CORPUSCULAR HGB CONC 29.6 g/dl (32.0-36.5); MEAN CORPUSCULAR VOLUME 94.8 fl (80.0-96.0); MONO # 0.7 10^3/uL (0.0-0.8); NEUTROPHILS # 8.2 10^3/uL (1.5-8.5); NEUTROPHILS % 75.6 % (36.0-66.0); PLATELET COUNT, AUTOMATED 191 10^3/uL (150-450); RED BLOOD COUNT 4.21 10^6/uL (4.00-5.40); WHITE BLOOD COUNT 10.9 10^3/uL (4.0-10.0)
[2020-10-12 08:25] LABS: CALCIUM LEVEL 9.2 MG/DL (8.8-10.2); CREATININE FOR GFR 1.22 MG/DL (0.55-1.30); GLOMERULAR FILTRATION RATE 45.4 (>39); POTASSIUM SERUM 4.5 MEQ/L (3.5-5.1)
--- NOTE | 2020-10-12 09:24 | IPNPDOC ---
PM&R Progress Note DATE OF SERVICE: Oct 11, 2020 Director Of Public Health Progress Note Subjective: PAtient reporting she feels she is bringing up more phlegm. She is concerned about an abrasion on her left hand. REVIEW OF SYSTEMS: The following is a completed review of systems and has been reviewed. Review of systems otherwise unremarkable. PAIN: Patient self reports left elbow soreness EYES: No recent vision changes EARS, NOSE, & THROAT: No throat pain, or new dysphagia but does say at home food sometimes sticks to back of throat, + rhinorrhea CARDIOVASCULAR: Denies chest pain or palpitations PULMONARY: Denies worsening, shortness of breath- +cough GASTROINTESTINAL: Denies constipation/diarrhea GENITOURINARY: denies dysuria MUSCULOSKELETAL: LUE weakness NEUROLOGICAL: left UE paresis, +fibromyalgia HEMATOLOGICAL: denies easy bruising SKIN: denies rash PSYCHIATRIC: Unremarkable All other review of systems found to be negative. PHYSICAL EXAMINATION: VITAL SIGNS: Please see below. GENERAL: Pleasant and cooperative. No acute distress. HEENT: PERRL. Extraocular movements intact. Clear conjunctiva, mild left sided facial droop CARDIOVASCULAR: Regular rate and rhythm. No murmurs, rubs, or gallops LUNGS: +scattered wheeze and rhonchi ABDOMEN: Soft, nontender, nondistended. Positive bowel sounds. Normal active bowel sounds. NEUROLOGICAL: Alert and oriented times three. Cranial nerves II through XII grossly intact. Sensation grossly intact in all 4limbs EXTREMITIES: 5\5 strength right upper extremities. 3+/5 left elbow flexor, ext ensor, 3/5 wrist extension and hand patcher, 5\5 strength right lower extremity. 5/5 strength in left lower extremity. +TTP left upper trap SKIN: blanchable sacral erythema, left dorsal hand with dried exudative abrasion ASSESSMENT:79-year-old F with past medical history of HTN, COPD who presents sta tus post right frontal-parietal strokes in setting of right ICA stenosis PLAN: 1. 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 NEuro- s/p right parietal and frontal stroke in setting of severe right ICA stenosis- c/u ASA and plavix, possible CEA to be done outpatient, patient aware that she can change her mind at any time and will have vascular return if needed to discuss option again -fibromyalgia c/u cymbalta and gabapentin -restless leg- requip 3. cardiac- hx of HTN, c/u home meds, amlodipine added for elevated BPs -recent echo showing grade 1 diastolic CHF, will fluid restrict, daily weights, lasix 20mg daily added, medicine consulted to assist in overall management -HLD c/u statin 4. Resp- COPD on , increase duonebs to QID, add budesonide inhaler, c/u guaifn esain for congestion, and Acapella, c/u claritin, flonase, NS nasal drops, and artifical tears for her itchy dry eyes -monitor for infection 5. Endo- hx of DM c/u ISS, consistent carb -hypothyroidism c/u synthroid 6. DVT ppx- heparin 7. GI ppx- protonix 8. - monitor PVRs 9. Pain- tylenol prn, lidoderm to neck 10. Dispo tbd Allergies Coded Allergies: Penicillins (Verified Allergy, Unknown, 10/01/20) Sulfa (Sulfonamide Antibiotics) (Verified Adverse Reaction, Mild, mouth sores, 10/01/20) Vital Signs Vital Signs Date Time Temp Pulse Resp B/P (MAP) Pulse Ox O2 Delivery O2 Flow Rate FiO2 10/12/20 07:56 79 149/71 10/12/20 06:00 97.8 18 96 Nasal Cannula 2.0 Laboratory Data CBC/BMP Laboratory Tests 10/12/20 07:19 Labs 24H Laboratory Tests 2 10/11/20 12:29: Bedside Glucose (Misc Panel) 224H 10/11/20 16:51: Bedside Glucose (Misc Panel) 213H 10/11/20 20:16: Bedside Glucose (Misc Panel) 263H 10/12/20 05:45: Bedside Glucose (Misc Panel) 190H 10/12/20 07:19: Immature Granulocyte % (Auto) 1.4, Neutrophils (%) (Auto) 75.6H, Lymphocytes (%) (Auto) 12.5L, Monocytes (%) (Auto) 6.0H, Eosinophils (%) (Auto) 3.9H, Basophils (%) (Auto) 0.6, Neutrophils # (Auto) 8.2, Lymphocytes # (Auto) 1.4L, Monocytes # (Auto) 0.7, Eosinophils # (Auto) 0.4, Basophils # (Auto) 0.1, Nucleated Red Blood Cells % (auto) 0.0, Anion Gap 9, Glomerular Filtration Rate 45.4, Calcium Level 9.2 Current Medications Current Medications Current Medications Medications (Trade) Dose Ordered Sig/Mandi Route PRN Reason Start Time Stop Time Status Last Admin Dose Admin Acetaminophen (Tylenol Tab) 650 mg Q4HP PRN PO fever/MILD PAIN (PS 1-4) 10/07/20 14:45 Albuterol/ Ipratropium (Duoneb (Ipr 0.5mg/Alb 2.5mg)) 3 ml RQID NEB 10/12/20 12:00 Albuterol/ Ipratropium (Duoneb (Ipr 0.5mg/Alb 2.5mg)) 3 ml RTID NEB 10/07/20 20:00 10/12/20 08:43 DC 10/12/20 07:17 Alprazolam (Xanax) 1 mg BIDP PRN PO ANXIETY 10/07/20 14:45 10/12/20 07:55 Amlodipine Besylate (Norvasc) 10 mg DAILY PO 10/08/20 11:15 10/12/20 07:56 Artificial Tears ([place]wa Tears) 2 drop QID OU 10/07/20 21:45 10/12/20 07:57 Aspirin (Ecotrin) 81 mg DAILY PO 10/08/20 09:00 10/12/20 07:55 Bacitracin/ Polymyxin B Sulfate (Polysporin Top Oint) 1 dose BID TOP 10/12/20 09:00 Bisacodyl (Dulcolax Suppository) 10 mg DAILYPRN PRN [place] CONSTIPATION 10/07/20 14:45 Budesonide (Pulmicort Flexhaler) 2 puff RBID INH 10/12/20 08:00 Clopidogrel Bisulfate (PLAVix) 75 mg DAILY PO 10/08/20 09:00 10/12/20 07:56 Dextrose (Dextrose 50%) 25 ml ASDIRECTED PRN IV SEE LABEL COMMENTS 10/07/20 14:45 Docusate Sodium (Colace) 100 mg BID PO 10/07/20 21:00 10/12/20 07:54 Duloxetine HCl (Cymbalta) 60 mg DAILY PO 10/08/20 09:00 10/12/20 07:55 Fluticasone Propionate (Flonase 0.05% Nasal [place]) 1 spray BID NARES 10/07/20 21:45 10/12/20 07:57 Furosemide (Lasix) 20 mg DAILY PO 10/12/20 09:00 10/12/20 07:55 Gabapentin (Neurontin) 100 mg DAILY PO 10/08/20 09:00 10/12/20 07:55 Glucagon (Glucagon) 1 mg ASDIRECTED PRN SC SEE LABEL COMMENTS 10/07/20 14:45 Glucose (Glucose) 16 GM ASDIRECTED PRN PO SEE LABEL COMMENTS 10/07/20 14:45 Guaifenesin (Robitussin Tab) 400 mg TID PO 10/07/20 21:45 10/12/20 07:54 Heparin Sodium (Porcine) (Heparin) 5,000 units Q12H SC 10/07/20 21:00 10/12/20 07:54 Home Med (Med Rec Complete!) ASDIRECTED XX 10/07/20 18:30 10/07/20 18:25 DC Insulin Detemir (Levemir Insulin) 5 units QHS SC 10/08/20 21:00 10/10/20 10:47 DC 10/09/20 20:57 Insulin Detemir (Levemir Insulin) 10 units QHS SC 10/10/20 21:00 10/11/20 21:24 Insulin Human Lispro (HumaLOG INSULIN) SEE PROTOCOL TABLE AC SC 10/07/20 17:30 10/12/20 07:54 Insulin Human Lispro (HumaLOG INSULIN) SEE PROTOCOL TABLE QHS SC 10/07/20 21:00 10/11/20 21:25 Levothyroxine Sodium (Synthroid) 125 mcg DAILY@06 PO 10/08/20 06:00 10/12/20 05:43 Lidocaine (Lidoderm Patch) 1 patch QHS TD 10/07/20 21:00 10/11/20 21:26 Loratadine (Claritin) 10 mg DAILY PO 10/08/20 11:15 10/12/20 07:55 Losartan Potassium (Cozaar) 25 mg DAILY PO 10/08/20 09:00 10/12/20 07:56 Non-Formulary Medication ( See Comment Field Below ) REMOVE LIDODERM PATCH DAILY XX 10/08/20 09:00 10/12/20 07:57 Pantoprazole Sodium (Protonix) 40 mg DAILY PO 10/08/20 09:00 10/12/20 07:56 Ropinirole HCl (Requip) 1 mg QHS PO 10/07/20 21:00 10/11/20 21:26 Senna (Senokot) 1 tab QHS PO 10/07/20 21:00 10/11/20 21:26 Simvastatin (Zocor) 20 mg QHS PO 10/07/20 21:00 10/11/20 21:26 Sodium Chloride ([place] Nasal [place]) 2 spray TID NA 10/07/20 21:45 10/12/20 07:56 MAYI CLINTON MD Oct 12, 2020 09:24
--- NOTE | 2020-10-12 09:25 | IPNPDOC ---
PM&R Progress Note DATE OF SERVICE: Oct 12, 2020 Campus Chaplain Progress Note Subjective: PAtient reporting her breathing is getting better and that she does not want to be woken up at 5 in the morning for her vitals to be checked. REVIEW OF SYSTEMS: The following is a completed review of systems and has been reviewed. Review of systems otherwise unremarkable. PAIN: Patient self reports left elbow soreness EYES: No recent vision changes EARS, NOSE, & THROAT: No throat pain, or new dysphagia but does say at home food sometimes sticks to back of throat, + rhinorrhea CARDIOVASCULAR: Denies chest pain or palpitations PULMONARY: Denies worsening, shortness of breath- +cough GASTROINTESTINAL: Denies constipation/diarrhea GENITOURINARY: denies dysuria MUSCULOSKELETAL: LUE weakness NEUROLOGICAL: left UE paresis, +fibromyalgia HEMATOLOGICAL: denies easy bruising SKIN: denies rash PSYCHIATRIC: Unremarkable All other review of systems found to be negative. PHYSICAL EXAMINATION: VITAL SIGNS: Please see below. GENERAL: Pleasant and cooperative. No acute distress. HEENT: PERRL. Extraocular movements intact. Clear conjunctiva, mild left sided facial droop CARDIOVASCULAR: Regular rate and rhythm. No murmurs, rubs, or gallops LUNGS: +scattered wheeze and rhonchi (less ont analy's exam) ABDOMEN: Soft, nontender, nondistended. Positive bowel sounds. Normal active bowel sounds. NEUROLOGICAL: Alert and oriented times three. Cranial nerves II through XII grossly intact. Sensation grossly intact in all 4limbs EXTREMITIES: 5\5 strength right upper extremities. 3+/5 left elbow flexor, extensor, 3/5 wrist extension and svp digital sales, 5\5 strength right lower extremity. 5/5 strength in left lower extremity. +TTP left upper trap SKIN: blanchable sacral erythema, left dorsal hand with dried exudative abrasion ASSESSMENT:79-year-old F with past medical history of HTN, COPD who presents status post right frontal-parietal strokes in setting of right ICA stenosis PLAN: 1. 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 NEuro- s/p right parietal and frontal stroke in setting of severe right ICA stenosis- c/u ASA and plavix, possible CEA to be done outpatient, patient aware that she can change her mind at any time and will have vascular return if needed to discuss option again -fibromyalgia c/u cymbalta and gabapentin -restless leg- requip 3. cardiac- hx of HTN, c/u home meds, amlodipine added for elevated BPs -recent echo showing grade 1 diastolic CHF, will fluid restrict, daily weights, lasix 20mg daily added, medicine consulted to assist in overall management -HLD c/u statin 4. Resp- COPD on , increase duonebs to QID, add budesonide inhaler, c/u guaifnesain for congestion, and Acapella, c/u claritin, flonase, NS nasal drops, and artifical tears for her itchy dry eyes -monitor for infection -CXR ordered today to monitor for PNA, patient overall appears better 5. Endo- hx of DM c/u ISS, consistent carb -hypothyroidism c/u synthroid 6. DVT ppx- heparin 7. GI ppx- protonix 8. - monitor PVRs 9. Pain- tylenol prn, lidoderm to neck 10. Dispo tbd Allergies Coded Allergies: Penicillins (Verified Allergy, Unknown, 10/01/20) Sulfa (Sulfonamide Antibiotics) (Verified Adverse Reaction, Mild, mouth sores, 10/01/20) Vital Signs Vital Signs Date Time Temp Pulse Resp B/P (MAP) Pulse Ox O2 Delivery O2 Flow Rate FiO2 10/12/20 07:56 79 149/71 10/12/20 06:00 97.8 18 96 Nasal Cannula 2.0 Laboratory Data CBC/BMP Laboratory Tests 10/12/20 07:19 Labs 24H Laboratory Tests 2 10/11/20 12:29: Bedside Glucose (Misc Panel) 224H 10/11/20 16:51: Bedside Glucose (Misc Panel) 213H 10/11/20 20:16: Bedside Glucose (Misc Panel) 263H 10/12/20 05:45: Bedside Glucose (Misc Panel) 190H 10/12/20 07:19: Immature Granulocyte % (Auto) 1.4, Neutrophils (%) (Auto) 75.6H, Lymphocytes (%) (Auto) 12.5L, Monocytes (%) (Auto) 6.0H, Eosinophils (%) (Auto) 3.9H, Basophils (%) (Auto) 0.6, Neutrophils # (Auto) 8.2, Lymphocytes # (Auto) 1.4L, Monocytes # (Auto) 0.7, Eosinophils # (Auto) 0.4, Basophils # (Auto) 0.1, Nucleated Red Blood Cells % (auto) 0.0, Anion Gap 9, Glomerular Filtration Rate 45.4, Calcium Level 9.2 Current Medications Current Medications Current Medications Medications (Trade) Dose Ordered Sig/Mandi Route PRN Reason Start Time Stop Time Status Last Admin Dose Admin Acetaminophen (Tylenol Tab) 650 mg Q4HP PRN PO fever/MILD PAIN (PS 1-4) 10/07/20 14:45 Albuterol/ Ipratropium (Duoneb (Ipr 0.5mg/Alb 2.5mg)) 3 ml RQID NEB 10/12/20 12:00 Albuterol/ Ipratropium (Duoneb (Ipr 0.5mg/Alb 2.5mg)) 3 ml RTID NEB 10/07/20 20:00 10/12/20 08:43 DC 10/12/20 07:17 Alprazolam (Xanax) 1 mg BIDP PRN PO ANXIETY 10/07/20 14:45 10/12/20 07:55 Amlodipine Besylate (Norvasc) 10 mg DAILY PO 10/08/20 11:15 10/12/20 07:56 Artificial Tears ([place]wa Tears) 2 drop QID OU 10/07/20 21:45 10/12/20 07:57 Aspirin (Ecotrin) 81 mg DAILY PO 10/08/20 09:00 10/12/20 07:55 Bacitracin/ Polymyxin B Sulfate (Polysporin Top Oint) 1 dose BID TOP 10/12/20 09:00 Bisacodyl (Dulcolax Suppository) 10 mg DAILYPRN PRN [place] CONSTIPATION 10/07/20 14:45 Budesonide (Pulmicort Flexhaler) 2 puff RBID INH 10/12/20 08:00 Clopidogrel Bisulfate (PLAVix) 75 mg DAILY PO 10/08/20 09:00 10/12/20 07:56 Dextrose (Dextrose 50%) 25 ml ASDIRECTED PRN IV SEE LABEL COMMENTS 10/07/20 14:45 Docusate Sodium (Colace) 100 mg BID PO 10/07/20 21:00 10/12/20 07:54 Duloxetine HCl (Cymbalta) 60 mg DAILY PO 10/08/20 09:00 10/12/20 07:55 Fluticasone Propionate (Flonase 0.05% Nasal [place]) 1 spray BID NARES 10/07/20 21:45 10/12/20 07:57 Furosemide (Lasix) 20 mg DAILY PO 10/12/20 09:00 10/12/20 07:55 Gabapentin (Neurontin) 100 mg DAILY PO 10/08/20 09:00 10/12/20 07:55 Glucagon (Glucagon) 1 mg ASDIRECTED PRN SC SEE LABEL COMMENTS 10/07/20 14:45 Glucose (Glucose) 16 GM ASDIRECTED PRN PO SEE LABEL COMMENTS 10/07/20 14:45 Guaifenesin (Robitussin Tab) 400 mg TID PO 10/07/20 21:45 10/12/20 07:54 Heparin Sodium (Porcine) (Heparin) 5,000 units Q12H SC 10/07/20 21:00 10/12/20 07:54 Home Med (Med Rec Complete!) ASDIRECTED XX 10/07/20 18:30 10/07/20 18:25 DC Insulin Detemir (Levemir Insulin) 5 units QHS SC 10/08/20 21:00 10/10/20 10:47 DC 10/09/20 20:57 Insulin Detemir (Levemir Insulin) 10 units QHS SC 10/10/20 21:00 10/11/20 21:24 Insulin Human Lispro (HumaLOG INSULIN) SEE PROTOCOL TABLE AC SC 10/07/20 17:30 10/12/20 07:54 Insulin Human Lispro (HumaLOG INSULIN) SEE PROTOCOL TABLE QHS SC 10/07/20 21:00 10/11/20 21:25 Levothyroxine Sodium (Synthroid) 125 mcg DAILY@06 PO 10/08/20 06:00 10/12/20 05:43 Lidocaine (Lidoderm Patch) 1 patch QHS TD 10/07/20 21:00 10/11/20 21:26 Loratadine (Claritin) 10 mg DAILY PO 10/08/20 11:15 10/12/20 07:55 Losartan Potassium (Cozaar) 25 mg DAILY PO 10/08/20 09:00 10/12/20 07:56 Non-Formulary Medication ( See Comment Field Below ) REMOVE LIDODERM PATCH DAILY XX 10/08/20 09:00 10/12/20 07:57 Pantoprazole Sodium (Protonix) 40 mg DAILY PO 10/08/20 09:00 10/12/20 07:56 Ropinirole HCl (Requip) 1 mg QHS PO 10/07/20 21:00 10/11/20 21:26 Senna (Senokot) 1 tab QHS PO 10/07/20 21:00 10/11/20 21:26 Simvastatin (Zocor) 20 mg QHS PO 10/07/20 21:00 10/11/20 21:26 Sodium Chloride ([place] Nasal [place]) 2 spray TID NA 10/07/20 21:45 10/12/20 07:56 MAYI CLINTON MD Oct 12, 2020 09:25
--- NOTE | 2020-10-12 09:29 | REP ---
INDICATION: r/o infiltrate COMPARISON: 10/01/2020 TECHNIQUE: AP and lateral FINDINGS: Evaluation is somewhat limited by technique and underpenetration. Mediastinum and cardiac silhouette stable. Very subtle bibasilar airspace disease cannot be exclude and requires physical correlation and correlation with auscultation. No discrete focal consolidation, effusion, or pneumothorax. Skeletal structures are intact. IMPRESSION: Limited examination. Cannot exclude subtle basilar airspace disease. <Electronically signed by Norbert Smith > 10/12/20 [id number]
[2020-10-12] MEDS: BUDESONIDE 180MCG INHALER (PULMICORT FLEXHALER) INH SCH ×2 (11:48→19:41)
[2020-10-12] MEDS: POLYSPORIN TOPICAL OINTMENT 15GM TOP SCH ×2 (12:12→22:08)
[2020-10-12 14:00] VITALS: BP 114/59
[2020-10-12 20:00] VITALS: BP 144/64
[2020-10-12] MEDS: ACETAMINOPHEN TAB 650MG DOSE (2X325MG) PO PRN (20:16)
[2020-10-12] MEDS: LIDOCAINE 5% (LIDODERM) PATCH TD SCH (22:05)
[2020-10-12] MEDS: LEVEMIR (INSULIN DETEMIR) 1 UNITS/0.01ML SC SCH (22:05)
[2020-10-12] MEDS: rOPINIRole 1MG TAB PO SCH (22:06)
[2020-10-12] MEDS: SIMVASTATIN 20 MG TAB PO SCH (22:07)
[2020-10-12] MEDS: SENNA 8.6 MG TAB (SENOKOT) PO SCH (22:07)
[2020-10-13 06:00] VITALS: BP 144/64
[2020-10-13] MEDS: LEVOTHYROXINE 125MCG TABLET (0.125MG) PO SCH (06:36)
[2020-10-13] MEDS: IPRATROPIUM 0.5MG/ALBUTEROL 2.5MG INH SOL UD 3ML (DUONEB) NEB SCH ×4 (07:14→20:10)
[2020-10-13] MEDS: BUDESONIDE 180MCG INHALER (PULMICORT FLEXHALER) INH SCH ×2 (07:27→20:11)
[2020-10-13] MEDS: GABAPENTIN 100 MG CAP PO SCH (08:38)
[2020-10-13] MEDS: ASPIRIN 81 MG ENTERIC TAB PO SCH (08:38)
[2020-10-13] MEDS: DULoxetine 30 MG CAP (CYMBALTA) PO SCH (08:38)
[2020-10-13] MEDS: CLOPIDOGREL 75 MG TAB PO SCH (08:38)
[2020-10-13] MEDS: guaiFENesin 200 MG TAB PO SCH ×3 (08:38→19:53)
[2020-10-13] MEDS: ALPRAZolam 0.5 MG TAB PO PRN ×2 (08:38→19:54)
[2020-10-13] MEDS: FUROSEMIDE 20 MG TAB PO SCH (08:39)
[2020-10-13] MEDS: PANTOPRAZOLE 40MG TAB (PROTONIX) PO SCH (08:39)
[2020-10-13] MEDS: LOSARTAN 25 MG TAB PO SCH (08:39)
[2020-10-13] MEDS: LORATADINE 10 MG TAB PO SCH (08:39)
[2020-10-13] MEDS: HEPARIN SOD (PORCINE) 5000UNITS/ML 1ML VIAL/SYRINGE SC SCH ×2 (08:40→19:53)
[2020-10-13] MEDS: HumaLOG INSULIN (NovoLOG) PER UNIT SC SCH ×4 (08:41→19:52)
[2020-10-13] MEDS: DOCUSATE SODIUM 100MG CAPSULE PO SCH ×2 (08:41→19:53)
[2020-10-13] MEDS: REMEDY PHYTOPLEX Z-GUARD PASTE 113GM TUBE (FROM STOREROOM PRODUCT) TOP SCH ×3 (09:00→19:54)
[2020-10-13] MEDS: **NOTE PATIENT COMMENT** MISC XX SCH (09:04)
[2020-10-13] MEDS: SODIUM CHLORIDE NASAL 0.65% SPRAY BTL (OCEAN) SCH ×3 (09:04→19:55)
[2020-10-13] MEDS: POLYSPORIN TOPICAL OINTMENT 15GM TOP SCH ×2 (09:04→19:55)
[2020-10-13] MEDS: FLUTICASONE PROP 0.05% NASAL SPRAY 16 GM (FLONASE) NARES SCH ×2 (09:04→19:56)
[2020-10-13] MEDS: POLYVINYL ALCOHOL OPHTH SOLN 15 ML(LIQUITEARS) OU SCH ×3 (09:04→17:21)
--- NOTE | 2020-10-13 09:39 | IPNPDOC ---
PM&R Progress Note DATE OF SERVICE: Oct 13, 2020 Wireless Sales Associate Progress Note Subjective: PAtient seen in her room stating she has an appointment with vascular surgery to discuss getting a CEA. She denies fevers or chills, reporting her cough is much better. REVIEW OF SYSTEMS: The following is a completed review of systems and has been reviewed. Review of systems otherwise unremarkable. PAIN: Patient self reports left elbow soreness EYES: No recent vision changes EARS, NOSE, & THROAT: No throat pain, or new dysphagia but does say at home food sometimes sticks to back of throat, + rhinorrhea CARDIOVASCULAR: Denies chest pain or palpitations PULMONARY: Denies worsening, shortness of breath- +cough (improving) GASTROINTESTINAL: Denies constipation/diarrhea GENITOURINARY: denies dysuria MUSCULOSKELETAL: LUE weakness NEUROLOGICAL: left UE paresis, +fibromyalgia HEMATOLOGICAL: denies easy bruising SKIN: denies rash PSYCHIATRIC: Unremarkable All other review of systems found to be negative. PHYSICAL EXAMINATION: VITAL SIGNS: Please see below. GENERAL: Pleasant and cooperative. No acute distress. HEENT: PERRL. Extraocular movements intact. Clear conjunctiva, mild left sided facial droop CARDIOVASCULAR: Regular rate and rhythm. No murmurs, rubs, or gallops LUNGS: +scattered wheeze and rhonchi (less on today's exam) ABDOMEN: Soft, nontender, nondistended. Positive bowel sounds. Normal active bowel sounds. NEUROLOGICAL: Alert and oriented times three. Cranial nerves II through XII grossly intact. Sensation grossly intact in all 4limbs EXTREMITIES: 5\5 strength right upper extremities. 3+/5 left elbow flexor, extensor, 3/5 wrist extension and loan processor, 5\5 strength right lower extremity. 5/5 strength in left lower extremity. SKIN: blanchable sacral erythema, left dorsal hand with dried exudative abrasion ASSESSMENT:79-year-old F with past medical history of HTN, COPD who presents status post right frontal-parietal strokes in setting of right ICA stenosis PLAN: 1. 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 NEuro- s/p right parietal and frontal stroke in setting of severe right ICA stenosis- c/u ASA and plavix, possible CEA to be done outpatient, patient's son arranged appointment with Dr. Servin this afternoon to discuss CEA option -fibromyalgia c/u cymbalta and gabapentin -restless leg- requip 3. cardiac- hx of HTN, c/u home meds, amlodipine added for elevated BPs -recent echo showing grade 1 diastolic CHF, will fluid restrict, daily weights, lasix 20mg daily added, medicine consulted to assist in overall management -HLD c/u statin 4. Resp- COPD on , increase duonebs to QID, c/u budesonide inhaler, c/u guaifn esain for congestion, and Acapella, c/u claritin, flonase, NS nasal drops, and artifical tears for her itchy dry eyes -monitor for infection -CXR 10-12-20 no infiltrate 5. Endo- hx of DM c/u ISS, consistent carb -hypothyroidism c/u synthroid 6. DVT ppx- heparin 7. GI ppx- protonix 8. - monitor PVRs 9. Pain- tylenol prn, lidoderm to neck 10. Dispo tbd Allergies Coded Allergies: Penicillins (Verified Allergy, Unknown, 10/01/20) Sulfa (Sulfonamide Antibiotics) (Verified Adverse Reaction, Mild, mouth sores, 10/01/20) Vital Signs Vital Signs Date Time Temp Pulse Resp B/P (MAP) Pulse Ox O2 Delivery O2 Flow Rate FiO2 10/13/20 08:39 145/63 10/13/20 06:00 98.9 82 18 91 Room Air 10/12/20 09:00 2.0 Laboratory Data Labs 24H Laboratory Tests 2 10/12/20 11:25: Bedside Glucose (Misc Panel) 249H 10/12/20 16:32: Bedside Glucose (Misc Panel) 199H 10/12/20 21:03: Bedside Glucose (Misc Panel) 254H 10/13/20 06:37: Bedside Glucose (Misc Panel) 220H Current Medications Current Medications Current Medications Medications (Trade) Dose Ordered Sig/Mandi Route PRN Reason Start Time Stop Time Status Last Admin Dose Admin Acetaminophen (Tylenol Tab) 650 mg Q4HP PRN PO fever/MILD PAIN (PS 1-4) 10/07/20 14:45 1/27/21 20:16 Albuterol/ Ipratropium (Duoneb (Ipr 0.5mg/Alb 2.5mg)) 3 ml RQID NEB 10/12/20 12:00 10/13/20 07:14 Albuterol/ Ipratropium (Duoneb (Ipr 0.5mg/Alb 2.5mg)) 3 ml RTID NEB 10/07/20 20:00 10/12/20 08:43 DC 10/12/20 07:17 Alprazolam (Xanax) 1 mg BIDP PRN PO ANXIETY 10/07/20 14:45 10/13/20 08:38 Amlodipine Besylate (Norvasc) 10 mg DAILY PO 10/08/20 11:15 10/13/20 08:40 Artificial Tears (Akwa Tears) 2 drop QID OU 10/07/20 21:45 10/13/20 09:04 Aspirin (Ecotrin) 81 mg DAILY PO 10/08/20 09:00 10/13/20 08:38 Bacitracin/ Polymyxin B Sulfate (Polysporin Top Oint) 1 dose BID TOP 10/12/20 09:00 10/13/20 09:04 Bisacodyl (Dulcolax Suppository) 10 mg DAILYPRN PRN [place] CONSTIPATION 10/07/20 14:45 Budesonide (Pulmicort Flexhaler) 2 puff RBID INH 10/12/20 08:00 10/13/20 07:27 Clopidogrel Bisulfate (PLAVix) 75 mg DAILY PO 10/08/20 09:00 10/13/20 08:38 Dextrose (Dextrose 50%) 25 ml ASDIRECTED PRN IV SEE LABEL COMMENTS 10/07/20 14:45 Docusate Sodium (Colace) 100 mg BID PO 10/07/20 21:00 10/12/20 22:06 Duloxetine HCl (Cymbalta) 60 mg DAILY PO 10/08/20 09:00 10/13/20 08:38 Fluticasone Propionate (Flonase 0.05% Nasal [place]) 1 spray BID NARES 10/07/20 21:45 10/13/20 09:04 Furosemide (Lasix) 20 mg DAILY PO 10/12/20 09:00 10/13/20 08:39 Gabapentin (Neurontin) 100 mg DAILY PO 10/08/20 09:00 10/13/20 08:38 Glucagon (Glucagon) 1 mg ASDIRECTED PRN SC SEE LABEL COMMENTS 10/07/20 14:45 Glucose (Glucose) 16 GM ASDIRECTED PRN PO SEE LABEL COMMENTS 10/07/20 14:45 Guaifenesin (Robitussin Tab) 400 mg TID PO 10/07/20 21:45 10/13/20 08:38 Heparin Sodium (Porcine) (Heparin) 5,000 units Q12H SC 10/07/20 21:00 10/13/20 08:40 Home Med (Med Rec Complete!) ASDIRECTED XX 10/07/20 18:30 10/07/20 18:25 DC Insulin Detemir (Levemir Insulin) 5 units QHS SC 10/08/20 21:00 10/10/20 10:47 DC 10/09/20 20:57 Insulin Detemir (Levemir Insulin) 10 units QHS SC 10/10/20 21:00 10/12/20 22:05 Insulin Human Lispro (HumaLOG INSULIN) SEE PROTOCOL TABLE AC SC 10/07/20 17:30 10/13/20 08:41 Insulin Human Lispro (HumaLOG INSULIN) SEE PROTOCOL TABLE QHS SC 10/07/20 21:00 10/12/20 22:06 Levothyroxine Sodium (Synthroid) 125 mcg DAILY@06 PO 10/08/20 06:00 10/13/20 06:36 Lidocaine (Lidoderm Patch) 1 patch QHS TD 10/07/20 21:00 10/12/20 22:05 Loratadine (Claritin) 10 mg DAILY PO 10/08/20 11:15 10/13/20 08:39 Losartan Potassium (Cozaar) 25 mg DAILY PO 10/08/20 09:00 10/13/20 08:39 Non-Formulary Medication ( See Comment Field Below ) REMOVE LIDODERM PATCH DAILY XX 10/08/20 09:00 10/13/20 09:04 Pantoprazole Sodium (Protonix) 40 mg DAILY PO 10/08/20 09:00 10/13/20 08:39 Ropinirole HCl (Requip) 1 mg QHS PO 10/07/20 21:00 10/12/20 22:06 Senna (Senokot) 1 tab QHS PO 10/07/20 21:00 10/12/20 22:07 Simvastatin (Zocor) 20 mg QHS PO 10/07/20 21:00 10/12/20 22:07 Sodium Chloride ([place] Nasal [place]) 2 spray TID NA 10/07/20 21:45 10/13/20 09:04 MAYI CLINTON MD Oct 13, 2020 09:39
[2020-10-13 14:00] VITALS: BP 161/70
[2020-10-13] MEDS: rOPINIRole 1MG TAB PO SCH (19:53)
[2020-10-13] MEDS: SIMVASTATIN 20 MG TAB PO SCH (19:53)
[2020-10-13] MEDS: SENNA 8.6 MG TAB (SENOKOT) PO SCH (19:53)
[2020-10-13] MEDS: LIDOCAINE 5% (LIDODERM) PATCH TD SCH (19:54)
[2020-10-13 20:00] VITALS: BP 180/90
[2020-10-13] MEDS: LEVEMIR (INSULIN DETEMIR) 1 UNITS/0.01ML SC SCH (22:16)
[2020-10-14 06:00] VITALS: BP 147/65
[2020-10-14] MEDS: LEVOTHYROXINE 125MCG TABLET (0.125MG) PO SCH (06:07)
[2020-10-14] MEDS: **NOTE PATIENT COMMENT** MISC XX SCH (07:30)
[2020-10-14 07:51] LABS: BASO # 0.1 10^3/uL (0.0-0.2); BASO % 0.4 % (0.0-1.0); EOS # 0.1 10^3/uL (0.0-0.5); EOS % 0.5 % (0.0-3.0); HEMATOCRIT 38.4 % (36.0-47.0); HEMOGLOBIN 11.7 g/dl (12.0-15.5); LYMPH # 2.3 10^3/uL (1.5-5.0); LYMPH % 10.3 % (24.0-44.0); MEAN CORPUSCULAR HEMOGLOBIN 28.4 pg (27.0-33.0); MEAN CORPUSCULAR HGB CONC 30.5 g/dl (32.0-36.5); MEAN CORPUSCULAR VOLUME 93.2 fl (80.0-96.0); MONO # 1.5 10^3/uL (0.0-0.8); MONO % 6.4 % (0.0-5.0); NEUTROPHILS # 18.4 10^3/uL (1.5-8.5); NEUTROPHILS % 81.2 % (36.0-66.0); PLATELET COUNT, AUTOMATED 195 10^3/uL (150-450); RED BLOOD COUNT 4.12 10^6/uL (4.00-5.40); WHITE BLOOD COUNT 22.7 10^3/uL (4.0-10.0)
[2020-10-14 08:05] LABS: CALCIUM LEVEL 8.7 MG/DL (8.8-10.2); CREATININE FOR GFR 1.5 MG/DL (0.55-1.30); GLOMERULAR FILTRATION RATE 35.8 (>39); POTASSIUM SERUM 4.3 MEQ/L (3.5-5.1)
[2020-10-14] MEDS: LORATADINE 10 MG TAB PO SCH (08:45)
[2020-10-14] MEDS: CLOPIDOGREL 75 MG TAB PO SCH (08:45)
[2020-10-14] MEDS: PANTOPRAZOLE 40MG TAB (PROTONIX) PO SCH (08:45)
[2020-10-14] MEDS: GABAPENTIN 100 MG CAP PO SCH (08:46)
[2020-10-14] MEDS: DULoxetine 30 MG CAP (CYMBALTA) PO SCH (08:46)
[2020-10-14] MEDS: HEPARIN SOD (PORCINE) 5000UNITS/ML 1ML VIAL/SYRINGE SC SCH ×2 (08:46→20:04)
[2020-10-14] MEDS: HumaLOG INSULIN (NovoLOG) PER UNIT SC SCH ×4 (08:46→20:04)
[2020-10-14] MEDS: DOCUSATE SODIUM 100MG CAPSULE PO SCH ×2 (08:47→20:03)
[2020-10-14] MEDS: ASPIRIN 81 MG ENTERIC TAB PO SCH (08:47)
[2020-10-14] MEDS: FUROSEMIDE 20 MG TAB PO SCH (08:47)
[2020-10-14] MEDS: guaiFENesin 200 MG TAB PO SCH ×3 (08:47→20:03)
[2020-10-14] MEDS: FLUTICASONE PROP 0.05% NASAL SPRAY 16 GM (FLONASE) NARES SCH ×2 (08:48→20:05)
[2020-10-14] MEDS: POLYSPORIN TOPICAL OINTMENT 15GM TOP SCH ×2 (08:48→20:05)
[2020-10-14] MEDS: SODIUM CHLORIDE NASAL 0.65% SPRAY BTL (OCEAN) SCH ×3 (08:48→20:05)
[2020-10-14] MEDS: POLYVINYL ALCOHOL OPHTH SOLN 15 ML(LIQUITEARS) OU SCH ×3 (08:48→16:47)
[2020-10-14] MEDS: LOSARTAN 25 MG TAB PO SCH (08:49)
[2020-10-14] MEDS: IPRATROPIUM 0.5MG/ALBUTEROL 2.5MG INH SOL UD 3ML (DUONEB) NEB SCH ×5 (08:58→19:48)
[2020-10-14] MEDS: BUDESONIDE 180MCG INHALER (PULMICORT FLEXHALER) INH SCH ×2 (08:58→19:48)
[2020-10-14] MEDS: REMEDY PHYTOPLEX Z-GUARD PASTE 113GM TUBE (FROM STOREROOM PRODUCT) TOP SCH ×3 (09:00→20:06)
[2020-10-14] MEDS: ALPRAZolam 0.5 MG TAB PO PRN (10:42)
--- NOTE | 2020-10-14 11:05 | IPNPDOC ---
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 She denies having a fever, but was noted to have a fever last night per nursing vitals. REVIEW OF SYSTEMS: The following is a completed review of systems and has been reviewed. Review of systems otherwise unremarkable. PAIN: Patient self reports left elbow soreness EYES: No recent vision changes EARS, NOSE, & THROAT: No throat pain, or new dysphagia but does say at home food sometimes sticks to back of throat, + rhinorrhea CARDIOVASCULAR: Denies chest pain or palpitations PULMONARY: + shortness of breath- +cough GASTROINTESTINAL: Denies constipation/diarrhea GENITOURINARY: denies dysuria MUSCULOSKELETAL: LUE weakness NEUROLOGICAL: left UE paresis, +fibromyalgia HEMATOLOGICAL: denies easy bruising SKIN: denies rash PSYCHIATRIC: Unremarkable All other review of systems found to be negative. PHYSICAL EXAMINATION: VITAL SIGNS: Please see below. GENERAL: Pleasant and cooperative. No acute distress. HEENT: PERRL. Extraocular movements intact. Clear conjunctiva, mild left sided facial droop CARDIOVASCULAR: Regular rate and rhythm. No murmurs, rubs, or gallops LUNGS: +scattered wheeze and rhonchi ABDOMEN: Soft, nontender, nondistended. Positive bowel sounds. Normal active bowel sounds. NEUROLOGICAL: Alert and oriented times three. Cranial nerves II through XII grossly intact. Sensation grossly intact in all 4limbs EXTREMITIES: 5\5 strength right upper extremities. 3+/5 left elbow flexor, extensor, 3/5 wrist extension and pheresis specialist, 5\5 strength right lower extremity. 5/5 strength in left lower extremity. SKIN: blanchable sacral erythema, left dorsal hand with dried exudative abrasion ASSESSMENT:79-year-old F with past medical history of HTN, COPD who presents status post right frontal-parietal strokes in setting of right ICA stenosis PLAN: 1. 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 NEuro- s/p right parietal and frontal stroke in setting of severe right ICA stenosis- c/u ASA and plavix, possible CEA to be done outpatient, patient's son arranged appointment with Dr. Servin 10-13-20 and scheduled for CEA as outpatient 11-03-20 -fibromyalgia c/u cymbalta and gabapentin -restless leg- requip 3. cardiac- hx of HTN, c/u amlodipine, will hold losartan for LALA and add hydra lazine -recent echo showing grade 1 diastolic CHF, will fluid restrict, daily weights, c/u lasix 20mg daily added, medicine consulted to assist in overall management -HLD c/u statin 4. Resp- COPD on , increase duonebs to QID, c/u budesonide inhaler, c/u guaifnesain for congestion, and Acapella, c/u claritin, flonase, NS nasal drops, and artifical tears for her itchy dry eyes -patient with elevated wbcs and fever overnight, CT chest ordered for suspected new PNA, will start empiric IV antibiotic coverage, f/u blood cx, sputum cx, Resp panel , and give gentle IVF- hospitalist is aware of change in medical status and following -CXR 10-12-20 no infiltrate 5. Endo- hx of DM c/u ISS, consistent carb -hypothyroidism c/u synthroid 6. DVT ppx- heparin 7. GI ppx- protonix 8. - monitor PVRs 9. Pain- tylenol prn, lidoderm to neck 10. Renal- CKD with LALA, getting gentle hydration today in setting of sepsis, holding losartan, will consider renal consult to help with fluid management 11. Dispo tbd Allergies Coded Allergies: Penicillins (Verified Allergy, Unknown, 10/01/20) Sulfa (Sulfonamide Antibiotics) (Verified Adverse Reaction, Mild, mouth sores, 10/01/20) Vital Signs Vital Signs Date Time Temp Pulse Resp B/P (MAP) Pulse Ox O2 Delivery O2 Flow Rate FiO2 10/14/20 09:45 2.0 10/14/20 08:49 147/65 10/14/20 08:47 100 10/14/20 06:00 98.7 18 91 Room Air Laboratory Data CBC/BMP Laboratory Tests 10/14/20 07:26 Labs 24H Laboratory Tests 2 10/13/20 11:15: Bedside Glucose (Misc Panel) 283H 10/13/20 16:23: Bedside Glucose (Misc Panel) 291H 10/13/20 19:50: Bedside Glucose (Misc Panel) 289H 10/14/20 06:39: Bedside Glucose (Misc Panel) 272H 10/14/20 07:26: Immature Granulocyte % (Auto) 1.2, Neutrophils (%) (Auto) 81.2H, Lymphocytes (%) (Auto) 10.3L, Monocytes (%) (Auto) 6.4H, Eosinophils (%) (Auto) 0.5, Basophils (%) (Auto) 0.4, Neutrophils # (Auto) 18.4H, Lymphocytes # (Auto) 2.3, Monocytes # (Auto) 1.5H, Eosinophils # (Auto) 0.1, Basophils # (Auto) 0.1, Nucleated Red Blood Cells % (auto) 0.0, Anion Gap 9, Glomerular Filtration Rate 35.8L, Calcium Level 8.7L Current Medications Current Medications Current Medications Medications (Trade) Dose Ordered Sig/Mandi Route PRN Reason Start Time Stop Time Status Last Admin Dose Admin Acetaminophen (Tylenol Tab) 650 mg Q4HP PRN PO fever/MILD PAIN (PS 1-4) 10/07/20 14:45 10/12/20 20:16 Albuterol/ Ipratropium (Duoneb (Ipr 0.5mg/Alb 2.5mg)) 3 ml RQID NEB 10/12/20 12:00 10/14/20 08:58 Albuterol/ Ipratropium (Duoneb (Ipr 0.5mg/Alb 2.5mg)) 3 ml RTID NEB 10/07/20 20:00 10/12/20 08:43 DC 10/12/20 07:17 Alprazolam (Xanax) 1 mg BIDP PRN PO ANXIETY 10/07/20 14:45 10/14/20 10:42 Amlodipine Besylate (Norvasc) 10 mg DAILY PO 10/08/20 11:15 10/14/20 08:47 Artificial Tears (Akwa Tears) 2 drop QID OU 10/07/20 21:45 10/13/20 15:30 DC 10/13/20 12:53 Artificial Tears ([place]wa Tears) 2 drop TID@0900,1300,1700 OU 10/13/20 17:00 10/14/20 08:48 Aspirin (Ecotrin) 81 mg DAILY PO 10/08/20 09:00 10/14/20 08:47 Bacitracin/ Polymyxin B Sulfate (Polysporin Top Oint) 1 dose BID TOP 10/12/20 09:00 10/13/20 15:39 DC 10/13/20 09:04 Bacitracin/ Polymyxin B Sulfate (Polysporin Top Oint) 1 dose BID@0900,1930 TOP 10/13/20 19:30 10/14/20 08:48 Bisacodyl (Dulcolax Suppository) 10 mg DAILYPRN PRN [place] CONSTIPATION 10/07/20 14:45 Budesonide (Pulmicort Flexhaler) 2 puff RBID INH 10/12/20 08:00 10/14/20 08:58 Clopidogrel Bisulfate (PLAVix) 75 mg DAILY PO 10/08/20 09:00 10/14/20 08:45 Dextrose (Dextrose 50%) 25 ml ASDIRECTED PRN IV SEE LABEL COMMENTS 10/07/20 14:45 Docusate Sodium (Colace) 100 mg BID PO 10/07/20 21:00 10/13/20 15:45 DC 10/12/20 22:06 Docusate Sodium (Colace) 100 mg BID@0900,1930 PO 10/13/20 19:30 10/14/20 08:47 Duloxetine HCl (Cymbalta) 60 mg DAILY PO 10/08/20 09:00 10/14/20 08:46 Fluticasone Propionate (Flonase 0.05% Nasal [place]) 1 spray BID NARES 10/07/20 21:45 10/13/20 15:40 DC 10/13/20 09:04 Fluticasone Propionate (Flonase 0.05% Nasal [place]) 1 spray BID@0900,1930 NARES 10/13/20 19:30 10/14/20 08:48 Furosemide (Lasix) 20 mg DAILY PO 10/12/20 09:00 10/14/20 08:47 Gabapentin (Neurontin) 100 mg DAILY PO 10/08/20 09:00 10/14/20 08:46 Glucagon (Glucagon) 1 mg ASDIRECTED PRN SC SEE LABEL COMMENTS 10/07/20 14:45 Glucose (Glucose) 16 GM ASDIRECTED PRN PO SEE LABEL COMMENTS 10/07/20 14:45 Guaifenesin (Robitussin Tab) 400 mg TID PO 10/07/20 21:45 10/13/20 15:46 DC 10/13/20 08:38 Guaifenesin (Robitussin Tab) 400 mg TID@0900,1600,1930 PO 10/13/20 16:00 10/14/20 08:47 Heparin Sodium (Porcine) (Heparin) 5,000 units Q12H SC 10/07/20 21:00 10/13/20 15:48 DC 10/13/20 08:40 Heparin Sodium (Porcine) (Heparin) 5,000 units Q12H SC 10/13/20 19:30 10/14/20 08:46 Home Med (Med Rec Complete!) ASDIRECTED XX 10/07/20 18:30 10/07/20 18:25 DC Insulin Detemir (Levemir Insulin) 5 units QHS SC 10/08/20 21:00 10/10/20 10:47 DC 10/09/20 20:57 Insulin Detemir (Levemir Insulin) 10 units QHS SC 10/10/20 21:00 10/13/20 09:38 DC 10/12/20 22:05 Insulin Detemir (Levemir Insulin) 14 units QHS SC 10/13/20 21:00 10/13/20 22:16 Insulin Human Lispro (HumaLOG INSULIN) SEE PROTOCOL TABLE AC SC 10/07/20 17:30 10/14/20 08:46 Insulin Human Lispro (HumaLOG INSULIN) SEE PROTOCOL TABLE DAILY@193 SC 10/13/20 19:30 10/13/20 19:52 Insulin Human Lispro (HumaLOG INSULIN) SEE PROTOCOL TABLE QHS SC 10/07/20 21:00 10/13/20 15:53 DC 10/12/20 22:06 Levothyroxine Sodium (Synthroid) 125 mcg DAILY@06 PO 10/08/20 06:00 10/14/20 06:07 Lidocaine (Lidoderm Patch) 1 patch DAILY@1930 TD 10/13/20 19:30 10/13/20 19:54 Lidocaine (Lidoderm Patch) 1 patch QHS TD 10/07/20 21:00 10/13/20 15:43 DC 10/12/20 22:05 Loratadine (Claritin) 10 mg DAILY PO 10/08/20 11:15 10/14/20 08:45 Losartan Potassium (Cozaar) 25 mg DAILY PO 10/08/20 09:00 10/14/20 08:49 Non-Formulary Medication ( See Comment Field Below ) REMOVE LIDODERM PATCH DAILY XX 10/08/20 09:00 10/13/20 15:44 DC 10/13/20 09:04 Non-Formulary Medication ( See Comment Field Below ) REMOVE LIDODERM PATCH DAILY@0730 XX 10/14/20 07:30 Pantoprazole Sodium (Protonix) 40 mg DAILY PO 10/08/20 09:00 10/14/20 08:45 Ropinirole HCl (Requip) 1 mg DAILY@1930 PO 10/13/20 19:30 10/13/20 19:53 Ropinirole HCl (Requip) 1 mg QHS PO 10/07/20 21:00 10/13/20 15:50 DC 10/12/20 22:06 Senna (Senokot) 1 tab DAILY@1930 PO 10/13/20 19:30 10/13/20 19:53 Senna (Senokot) 1 tab QHS PO 10/07/20 21:00 10/13/20 15:50 DC 10/12/20 22:07 Simvastatin (Zocor) 20 mg DAILY@1930 PO 10/13/20 19:30 10/13/20 19:53 Simvastatin (Zocor) 20 mg QHS PO 10/07/20 21:00 10/13/20 15:52 DC 10/12/20 22:07 Sodium Chloride ([place] Nasal [place]) 2 spray TID NA 10/07/20 21:45 10/13/20 15:42 DC 10/13/20 09:04 Sodium Chloride ([place] Nasal [place]) 2 spray TID@0900,1600,0 NA 10/13/20 16:00 10/14/20 08:48 MAYI CLINTON MD Oct 14, 2020 11:05
[2020-10-14] MEDS ORDERED: NS 1,000 ML IV ONE (11:30)
[2020-10-14] MEDS ORDERED: MEROPENEM INJ 2 GM in NS 100 ML IV SCH (12:00)
--- NOTE | 2020-10-14 12:13 | REP ---
INDICATION: r/o infiltrate. COMPARISON: Comparison chest x-ray [address] imaging 01 October 2019.. TECHNIQUE: Helical scanning is acquired. 3 mm axial images are generated. Coronal and sagittal MPR and coronal MIP images are generated. FINDINGS: There is no evidence of pleural or pericardial effusion. Extensive vascular calcification is seen including coronary artery vascular calcification. No hilar or mediastinal mass or adenopathy is observed. There is a focal consolidation in the lingular segment of the left upper lobe at the left lung base adjacent to the major fissure. There is also some consolidation in the left lower lobe. The changes are consistent with pneumonia. No other infiltrates are seen. Normal adrenal glands are seen. There is a vena cava filter in place. Cyst is seen in the upper pole the right kidney. Post cholecystectomy clips are noted. IMPRESSION: Left lower lobe and lingular infiltrates consistent with pneumonia. Extensive vascular calcification. otherwise no acute disease. <Electronically signed by Maverick Gibsno > 10/14/20 [id number]
[2020-10-14] MEDS: LEVEMIR (INSULIN DETEMIR) 1 UNITS/0.01ML SC SCH ×2 (13:26→20:04)
[2020-10-14] MEDS: **hydrALAZINE HCL** 25 MG TAB PO SCH ×2 (13:28→17:06)
[2020-10-14 13:30] LABS: BASO # 0.1 10^3/uL (0.0-0.2); BASO % 0.4 % (0.0-1.0); EOS # 0.1 10^3/uL (0.0-0.5); EOS % 0.6 % (0.0-3.0); HEMATOCRIT 36.2 % (36.0-47.0); HEMOGLOBIN 11.1 g/dl (12.0-15.5); LYMPH # 2.1 10^3/uL (1.5-5.0); LYMPH % 9.5 % (24.0-44.0); MEAN CORPUSCULAR HEMOGLOBIN 28.8 pg (27.0-33.0); MEAN CORPUSCULAR HGB CONC 30.7 g/dl (32.0-36.5); MEAN CORPUSCULAR VOLUME 93.8 fl (80.0-96.0); MONO # 1.3 10^3/uL (0.0-0.8); MONO % 5.9 % (0.0-5.0); NEUTROPHILS % 82.4 % (36.0-66.0); PLATELET COUNT, AUTOMATED 194 10^3/uL (150-450); RED BLOOD COUNT 3.86 10^6/uL (4.00-5.40); WHITE BLOOD COUNT 21.8 10^3/uL (4.0-10.0)
[2020-10-14 13:55] LABS: CALCIUM LEVEL 8.9 MG/DL (8.8-10.2); CREATININE FOR GFR 1.47 MG/DL (0.55-1.30); GLOMERULAR FILTRATION RATE 36.6 (>39)
[2020-10-14 14:00] VITALS: BP 142/63
[2020-10-14] MEDS ORDERED: guaiFENesin SYRUP 200 MG/10 ML UDC PO ONE (14:00)
--- NOTE | 2020-10-14 14:11 | HPEPDOC ---
[facility] Medical History & Physical Date of Admission Oct 07, 2020 Date of Service: Oct 14, 2020 History and Physical CHIEF COMPLAINT: Rehabilitation after CVA HISTORY OF PRESENT ILLNESS: 79-year-old female history of recent CVA with resulting left upper and lower extremity weakness was admitted to the rehabilitation unit. His aspirin a medical evaluation for the patient. Patient today felt a little weaker than normal and had a bothersome cough which prohibited her from participation in therapy. She has a known history of COPD and should be on 2 L of oxygen at home but she is noncompliant I spoke with the patient at length and she agreed to try some oxygen as well as some DuoNeb therapy. She sounds very congested and I discussed with her the use of mucolytic's to try to break it up. She agreed with the plan and ready feels a little better this afternoon and willing to participate more in therapy. She denies significant shortness of breath out of the ordinary for her denies any fevers or chills no chest pain or palpitations. She still motivated and wants to continue to participate in therapy. PAST MEDICAL HISTORY: HTN HLD COPD on 2 L NC (not always compliant at home) GERALD Tobacco use Hx of Graves disease s/p radiation, now hypothyroid on synthroid Hx of bladder cancer Anxiety RLS DM type II Chronic pain Fibromyalgia Tobacco use PAST SURGICAL HISTORY: Neck/thyroid radiation treatments Cholecystectomy Bladder stent Back surgery Bilateral foot bunionectomy Right toe surgery Bilateral carpal tunnel surgery Bilateral cataract cystoscopy 10/14/19 SOCIAL HISTORY: Denies alcohol use Smokes 5 cigarettes daily used to smoke more in the past 64 year history of a smoker Denies illicit drug use FAMILY HISTORY: Reviewed and none contributory to this admission ALLERGIES: Please see below. REVIEW OF SYSTEMS: 10 point review of systems complete all negative otherwise stated in HPI HOME MEDICATIONS: Please see below. PHYSICAL EXAMINATION: Constitutional: Awake and alert, in no apparent distress ENT: Sclera are clear. Respiratory: Somewhat coarse breath sounds mostly congestion mild wheezing bilaterally. No respiratory distress. No use of accessory muscles. Saturating around 90% on room air Cardiovascular: RRR S1 and S2 are normal, no murmur Gastrointestinal: Abdomen is soft, obese, non distended, non tender Musculoskeletal: No lower extremity edema. Neurologic: Left upper and lower extremity weakness Mental Status: A&O x3, normal affect LABORATORY DATA: See below. IMAGING: See chart MICROBIOLOGY: Please see below. ASSESSMENT Left upper and lower extremity weakness secondary to CVA undergoing rehabilitation therapy COPD she'll be on 2 L of oxygen at home but noncompliant, with some chest congestion Obstructive sleep apnea Hyperlipidemia Hypertension History of Graves' disease status post radiation now hypothyroid on Synthroid Anxiety Type II diabetic Chronic pain and fibromyalgia Restless leg syndrome Tobacco abuse. PLAN I recommended continued rehabilitation therapy for the patient's CVA. Patient's participation in rehabilitation today was a little limited due to her cough and congestion which made her feel weak. I obtained a repeat chest x-ray. She does not appear to be in jeannie COPD exacerbation but she does have some mild wheezing and I started her on scheduled duonebs for 2 days as well as as needed in between. Patient was saturating at 90% on room air and she should be able to tolerate perhaps 1-2 L to bump her up a little bit closer to 92-94%. I placed an order for respiratory therapy to start a cappella treatment. He also started as needed guaifenesin syrup to help to break up the secretions. I recommend continuing her medications for her chronic problems. A Youse[facility] Hospitalist Vital Signs Vital Signs Date Time Temp Pulse Resp B/P (MAP) Pulse Ox O2 Delivery O2 Flow Rate FiO2 10/14/20 09:45 2.0 10/14/20 08:49 147/65 10/14/20 08:47 100 10/14/20 06:00 98.7 18 91 Room Air Laboratory Data Labs 24H Laboratory Tests 2 10/13/20 16:23: Bedside Glucose (Misc Panel) 291H 10/13/20 19:50: Bedside Glucose (Misc Panel) 289H 10/14/20 06:39: Bedside Glucose (Misc Panel) 272H 10/14/20 07:26: Immature Granulocyte % (Auto) 1.2, Neutrophils (%) (Auto) 81.2H, Lymphocytes (%) (Auto) 10.3L, Monocytes (%) (Auto) 6.4H, Eosinophils (%) (Auto) 0.5, Basophils (%) (Auto) 0.4, Neutrophils # (Auto) 18.4H, Lymphocytes # (Auto) 2.3, Monocytes # (Auto) 1.5H, Eosinophils # (Auto) 0.1, Basophils # (Auto) 0.1, Nucleated Red Blood Cells % (auto) 0.0, Anion Gap 9, Glomerular Filtration Rate 35.8L, Calcium Level 8.7L 10/14/20 11:10: Bedside Glucose (Misc Panel) 251H CBC/BMP Laboratory Tests 10/14/20 07:26 Microbiology Microbiology 10/14/20 Respiratory Virus Panel (PCR) ([facility]) - Final, Complete Home Medications Scheduled Aspirin (Aspirin EC) 81 Mg Tablet.dr, 81 MG PO DAILY Clopidogrel Bisulfate (Clopidogrel) 75 Mg Tablet, 75 MG PO DAILY Duloxetine Hcl (Duloxetine HCl) 60 Mg Capsule.dr, 60 MG PO DAILY Gabapentin (Gabapentin) 100 Mg Capsule, 100 MG PO DAILY Levothyroxine Sodium (Synthroid) 125 Mcg Tablet, 125 MCG PO DAILY Losartan Potassium (Losartan Potassium) 25 Mg Tablet, 25 MG PO DAILY Lovastatin (Lovastatin) 10 Mg Tablet, 10 MG PO QPM Ropinirole HCl (Ropinirole HCl) 0.5 Mg Tablet, 1 MG PO QHS Scheduled PRN Alprazolam (Alprazolam) 1 Mg Tablet, 1 TAB PO BID PRN for ANXIETY Loperamide HCl (Loperamide) 2 Mg Capsule, 2 MG PO TIDP PRN for DIARRHEA Miscellaneous Medications [Comments] MED LIST MADE WITH HELP FROM [facility] AND A HEALTH CLINIC VISIT. HEALTH CLINIC VISIT HAS INSULIN BUT [facility] HAS NOT FILLED INSULIN IN MORE THAN A YEAR Allergies Coded Allergies: Penicillins (Verified Allergy, Unknown, 10/01/20) Sulfa (Sulfonamide Antibiotics) (Verified Adverse Reaction, Mild, mouth sores, 10/01/20) A-FIB/CHADSVASC A-FIB History Current/History of A-Fib/PAF?: No JOHN MARIN MD Oct 14, 2020 14:11
[2020-10-14] MEDS: MEROPENEM INJ 1 GM in IV 1 EA IV SCH (14:16)
--- NOTE | 2020-10-14 15:29 | REP ---
INDICATION: congestion. COMPARISON: Comparison chest x-ray October 12, 2020.. TECHNIQUE: Portable sitting AP chest radiograph. FINDINGS: There is hazy increased parenchymal density in the left base suggestive of an infiltrate. Mild vascular congestion is seen. Pleural angles are sharp. Heart is not enlarged. IMPRESSION: Mild vascular congestion. Hazy infiltrate left base question pneumonia. <Electronically signed by Maverick Gibson > 10/14/20 [id number]
[2020-10-14] MEDS ORDERED: VANCOMYCIN HCL 750 MG, VIAL MATE ADAPTER 1 EACH in D5W 250 ML IV ONE ×2 (16:00→17:00)
[2020-10-14] MEDS ORDERED: guaiFENesin SYRUP 200 MG/10 ML UDC PO PRN (18:00)
[2020-10-14 20:00] VITALS: BP 156/72
[2020-10-14] MEDS: SIMVASTATIN 20 MG TAB PO SCH (20:03)
[2020-10-14] MEDS: rOPINIRole 1MG TAB PO SCH (20:03)
[2020-10-14] MEDS: SENNA 8.6 MG TAB (SENOKOT) PO SCH (20:03)
[2020-10-14] MEDS: LIDOCAINE 5% (LIDODERM) PATCH TD SCH (20:05)
[2020-10-15] MEDS: MEROPENEM INJ 1 GM in IV 1 EA IV SCH ×2 (00:39→12:34)
[2020-10-15] MEDS: **hydrALAZINE HCL** 25 MG TAB PO SCH ×4 (00:39→17:10)
[2020-10-15] MEDS: LEVOTHYROXINE 125MCG TABLET (0.125MG) PO SCH (05:25)
[2020-10-15 05:29] VITALS: BP 154/63
[2020-10-15] MEDS: ALPRAZolam 0.5 MG TAB PO PRN (06:43)
[2020-10-15] MEDS: BUDESONIDE 180MCG INHALER (PULMICORT FLEXHALER) INH SCH ×2 (07:14→20:00)
[2020-10-15 08:11] LABS: BASO # 0.1 10^3/uL (0.0-0.2); BASO % 0.5 % (0.0-1.0); EOS # 0.3 10^3/uL (0.0-0.5); EOS % 1.8 % (0.0-3.0); HEMATOCRIT 36.2 % (36.0-47.0); HEMOGLOBIN 10.7 g/dl (12.0-15.5); LYMPH # 1.1 10^3/uL (1.5-5.0); LYMPH % 6.1 % (24.0-44.0); MEAN CORPUSCULAR HGB CONC 29.6 g/dl (32.0-36.5); MEAN CORPUSCULAR VOLUME 94.8 fl (80.0-96.0); MONO # 0.9 10^3/uL (0.0-0.8); MONO % 5.2 % (0.0-5.0); NEUTROPHILS # 14.9 10^3/uL (1.5-8.5); NEUTROPHILS % 85.2 % (36.0-66.0); PLATELET COUNT, AUTOMATED 180 10^3/uL (150-450); RED BLOOD COUNT 3.82 10^6/uL (4.00-5.40); WHITE BLOOD COUNT 17.4 10^3/uL (4.0-10.0)
[2020-10-15] MEDS: PANTOPRAZOLE 40MG TAB (PROTONIX) PO SCH (08:29)
[2020-10-15] MEDS: LORATADINE 10 MG TAB PO SCH (08:29)
[2020-10-15] MEDS: FUROSEMIDE 20 MG TAB PO SCH (08:30)
[2020-10-15] MEDS: DOCUSATE SODIUM 100MG CAPSULE PO SCH ×2 (08:30→19:51)
[2020-10-15] MEDS: DULoxetine 30 MG CAP (CYMBALTA) PO SCH (08:30)
[2020-10-15] MEDS: GABAPENTIN 100 MG CAP PO SCH (08:30)
[2020-10-15] MEDS: CLOPIDOGREL 75 MG TAB PO SCH (08:30)
[2020-10-15] MEDS: guaiFENesin 200 MG TAB PO SCH ×3 (08:30→19:51)
[2020-10-15] MEDS: ASPIRIN 81 MG ENTERIC TAB PO SCH (08:30)
[2020-10-15] MEDS: HEPARIN SOD (PORCINE) 5000UNITS/ML 1ML VIAL/SYRINGE SC SCH ×2 (08:31→19:51)
[2020-10-15] MEDS: HumaLOG INSULIN (NovoLOG) PER UNIT SC SCH ×4 (08:31→19:52)
[2020-10-15 08:32] LABS: CALCIUM LEVEL 8.6 MG/DL (8.8-10.2); CREATININE FOR GFR 1.18 MG/DL (0.55-1.30); POTASSIUM SERUM 4.2 MEQ/L (3.5-5.1)
[2020-10-15] MEDS: FLUTICASONE PROP 0.05% NASAL SPRAY 16 GM (FLONASE) NARES SCH ×2 (08:32→19:53)
[2020-10-15] MEDS: LEVEMIR (INSULIN DETEMIR) 1 UNITS/0.01ML SC SCH ×2 (08:32→19:53)
[2020-10-15] MEDS: SODIUM CHLORIDE NASAL 0.65% SPRAY BTL (OCEAN) SCH ×3 (08:32→19:53)
[2020-10-15] MEDS: POLYVINYL ALCOHOL OPHTH SOLN 15 ML(LIQUITEARS) OU SCH ×3 (08:32→17:08)
[2020-10-15] MEDS: REMEDY PHYTOPLEX Z-GUARD PASTE 113GM TUBE (FROM STOREROOM PRODUCT) TOP SCH ×3 (08:33→19:54)
[2020-10-15] MEDS: POLYSPORIN TOPICAL OINTMENT 15GM TOP SCH ×2 (08:33→19:53)
[2020-10-15] MEDS: IPRATROPIUM 0.5MG/ALBUTEROL 2.5MG INH SOL UD 3ML (DUONEB) NEB SCH ×3 (08:39→20:00)
[2020-10-15] MEDS: **NOTE PATIENT COMMENT** MISC XX SCH (09:00)
[2020-10-15 14:00] VITALS: BP 138/72
[2020-10-15] MEDS: VANCOMYCIN HCL 750 MG, VIAL MATE ADAPTER 1 EACH in D5W 250 ML IV SCH (15:20)
--- NOTE | 2020-10-15 16:09 | IPNPDOC ---
Text Note Date of Service The patient was seen on 10/15/20. NOTE Subjective: Patient was seen and examined this morning at bedside. Patient tells me that she is feeling better compared to yesterday her breathing is easier and she's been bringing up cough and that the cough syrup is helping. She denies any fevers or chills. She tells me she feels less weak than yesterday and her breathing is easier. There is no acute overnight events. Tells me that using the oxygen by nasal cannula is helping also. Objective: Constitutional: Awake and alert, in no apparent distress ENT: Sclera are clear. Respiratory: Somewhat coarse breath sounds mostly congestion mild wheezing bilaterally improved compared to yesterday. No respiratory distress. No use of accessory muscles. Now using oxygen by nasal cannula Cardiovascular: RRR S1 and S2 are normal, no murmur Gastrointestinal: Abdomen is soft, obese, non distended, non tender Musculoskeletal: No lower extremity edema. Neurologic: Left upper and lower extremity weakness Mental Status: A&O x3, normal affect Assessment/plan: Left upper and lower extremity weakness secondary to CVA undergoing rehabilitation therapy Community acquired pneumonia COPD she'll be on 2 L of oxygen at home but noncompliant, with some chest congestion Obstructive sleep apnea Hyperlipidemia Hypertension History of Graves' disease status post radiation now hypothyroid on Synthroid Anxiety Type II diabetic Chronic pain and fibromyalgia Restless leg syndrome Tobacco abuse. PLAN Continue present management. Continue antibiotics for her pneumonia. I recommended continued rehabilitation therapy for the patient's CVA. Patient's participation in rehabilitation today was a little limited due to her cough and congestion which made her feel weak but she is feeling better today. She does not appear to be in jeannie COPD exacerbation but she does have some mild wheezing and I started her on scheduled duonebs for 2 days as well as as needed in between which we will continue. She's now using oxygen by nasal cannula which is helping. I placed an order for respiratory therapy to start a acappella treatment but she has not received it yet and should be receiving it today. Continue guaifenesin syrup to help to break up the secretions. Continue her medications for her chronic problems. [facility] Randolph CARMICHAEL, I+O Randolph CARMICHAEL, I+O Laboratory Tests 10/15/20 07:24 Vital Signs Date Time Temp Pulse Resp B/P (MAP) Pulse Ox O2 Delivery O2 Flow Rate FiO2 10/15/20 14:00 97.5 98 20 138/72 (94) 91 Nasal Cannula 2.0 I&O- Last 24 Hours up to 6 AM 10/15/20 06:00 Intake Total 660 ml Balance 660 ml JOHN MARIN MD Oct 15, 2020 16:09
[2020-10-15] MEDS: VANCOMYCIN HCL 500 MG in D5W MINI-BAG PLUS 100 ML IV SCH (17:08)
[2020-10-15] MEDS: SIMVASTATIN 20 MG TAB PO SCH (19:51)
[2020-10-15] MEDS: LIDOCAINE 5% (LIDODERM) PATCH TD SCH (19:51)
[2020-10-15] MEDS: SENNA 8.6 MG TAB (SENOKOT) PO SCH (19:51)
[2020-10-15] MEDS: rOPINIRole 1MG TAB PO SCH (19:51)
[2020-10-15 20:00] VITALS: BP 148/67
[2020-10-16] MEDS: MEROPENEM INJ 1 GM in IV 1 EA IV SCH ×2 (00:25→12:29)
[2020-10-16] MEDS: IPRATROPIUM 0.5MG/ALBUTEROL 2.5MG INH SOL UD 3ML (DUONEB) NEB SCH (01:29)
[2020-10-16] MEDS: **hydrALAZINE HCL** 25 MG TAB PO SCH ×4 (05:03→17:23)
[2020-10-16 05:36] VITALS: BP 120/53
[2020-10-16] MEDS: LEVOTHYROXINE 125MCG TABLET (0.125MG) PO SCH (05:53)
[2020-10-16] MEDS: IPRATROPIUM 0.5MG/ALBUTEROL 2.5MG INH SOL UD 3ML (DUONEB) NEB PRN (07:23)
[2020-10-16] MEDS: DOCUSATE SODIUM 100MG CAPSULE PO SCH ×2 (09:00→20:30)
[2020-10-16] MEDS: ASPIRIN 81 MG ENTERIC TAB PO SCH (09:02)
[2020-10-16] MEDS: FUROSEMIDE 20 MG TAB PO SCH (09:02)
[2020-10-16] MEDS: DULoxetine 30 MG CAP (CYMBALTA) PO SCH (09:02)
[2020-10-16] MEDS: CLOPIDOGREL 75 MG TAB PO SCH (09:02)
[2020-10-16] MEDS: GABAPENTIN 100 MG CAP PO SCH (09:03)
[2020-10-16] MEDS: LORATADINE 10 MG TAB PO SCH (09:03)
[2020-10-16] MEDS: **NOTE PATIENT COMMENT** MISC XX SCH (09:03)
[2020-10-16] MEDS: guaiFENesin 200 MG TAB PO SCH ×3 (09:03→20:31)
[2020-10-16] MEDS: PANTOPRAZOLE 40MG TAB (PROTONIX) PO SCH (09:03)
[2020-10-16] MEDS: HumaLOG INSULIN (NovoLOG) PER UNIT SC SCH ×4 (09:03→19:30)
[2020-10-16] MEDS: LEVEMIR (INSULIN DETEMIR) 1 UNITS/0.01ML SC SCH ×2 (09:04→20:34)
[2020-10-16] MEDS: FLUTICASONE PROP 0.05% NASAL SPRAY 16 GM (FLONASE) NARES SCH ×2 (09:05→20:32)
[2020-10-16] MEDS: POLYVINYL ALCOHOL OPHTH SOLN 15 ML(LIQUITEARS) OU SCH ×3 (09:05→17:24)
[2020-10-16] MEDS: REMEDY PHYTOPLEX Z-GUARD PASTE 113GM TUBE (FROM STOREROOM PRODUCT) TOP SCH ×3 (09:06→20:32)
[2020-10-16] MEDS: SODIUM CHLORIDE NASAL 0.65% SPRAY BTL (OCEAN) SCH ×3 (09:06→20:31)
[2020-10-16] MEDS: POLYSPORIN TOPICAL OINTMENT 15GM TOP SCH ×2 (09:06→20:31)
[2020-10-16] MEDS: HEPARIN SOD (PORCINE) 5000UNITS/ML 1ML VIAL/SYRINGE SC SCH ×2 (09:07→20:30)
[2020-10-16] MEDS: BUDESONIDE 180MCG INHALER (PULMICORT FLEXHALER) INH SCH ×2 (11:20→20:17)
[2020-10-16 14:00] VITALS: BP 132/60
[2020-10-16] MEDS: VANCOMYCIN HCL 750 MG, VIAL MATE ADAPTER 1 EACH in D5W 250 ML IV SCH (15:42)
[2020-10-16] MEDS: VANCOMYCIN HCL 500 MG in D5W MINI-BAG PLUS 100 ML IV SCH (18:04)
[2020-10-16 20:00] VITALS: BP 143/70
[2020-10-16] MEDS: LIDOCAINE 5% (LIDODERM) PATCH TD SCH (20:30)
[2020-10-16] MEDS: SIMVASTATIN 20 MG TAB PO SCH (20:30)
[2020-10-16] MEDS: rOPINIRole 1MG TAB PO SCH (20:30)
[2020-10-16] MEDS: ALPRAZolam 0.5 MG TAB PO PRN (20:31)
[2020-10-16] MEDS: SENNA 8.6 MG TAB (SENOKOT) PO SCH (20:31)
[2020-10-17] MEDS: MEROPENEM INJ 1 GM in IV 1 EA IV SCH ×2 (00:42→12:24)
[2020-10-17] MEDS: **hydrALAZINE HCL** 25 MG TAB PO SCH ×4 (05:26→17:37)
[2020-10-17] MEDS: LEVOTHYROXINE 125MCG TABLET (0.125MG) PO SCH (05:26)
[2020-10-17 06:00] VITALS: BP 187/73
[2020-10-17 07:06] LABS: BASO # 0.1 10^3/uL (0.0-0.2); BASO % 0.6 % (0.0-1.0); EOS # 0.5 10^3/uL (0.0-0.5); EOS % 4.8 % (0.0-3.0); HEMATOCRIT 36.1 % (36.0-47.0); HEMOGLOBIN 10.7 g/dl (12.0-15.5); LYMPH # 1.3 10^3/uL (1.5-5.0); LYMPH % 12.4 % (24.0-44.0); MEAN CORPUSCULAR HEMOGLOBIN 28.1 pg (27.0-33.0); MEAN CORPUSCULAR HGB CONC 29.6 g/dl (32.0-36.5); MEAN CORPUSCULAR VOLUME 94.8 fl (80.0-96.0); MONO # 0.6 10^3/uL (0.0-0.8); NEUTROPHILS # 7.5 10^3/uL (1.5-8.5); NEUTROPHILS % 74.6 % (36.0-66.0); PLATELET COUNT, AUTOMATED 229 10^3/uL (150-450); RED BLOOD COUNT 3.81 10^6/uL (4.00-5.40); WHITE BLOOD COUNT 10.1 10^3/uL (4.0-10.0)
[2020-10-17 07:27] LABS: CALCIUM LEVEL 8.8 MG/DL (8.8-10.2); CREATININE FOR GFR 1.18 MG/DL (0.55-1.30); POTASSIUM SERUM 4.4 MEQ/L (3.5-5.1)
[2020-10-17] MEDS: LEVEMIR (INSULIN DETEMIR) 1 UNITS/0.01ML SC SCH ×2 (08:21→20:20)
[2020-10-17] MEDS: HumaLOG INSULIN (NovoLOG) PER UNIT SC SCH ×4 (08:21→20:19)
[2020-10-17] MEDS: ASPIRIN 81 MG ENTERIC TAB PO SCH (08:22)
[2020-10-17] MEDS: CLOPIDOGREL 75 MG TAB PO SCH (08:22)
[2020-10-17] MEDS: DULoxetine 30 MG CAP (CYMBALTA) PO SCH (08:22)
[2020-10-17] MEDS: FUROSEMIDE 20 MG TAB PO SCH ×2 (08:22→17:37)
[2020-10-17] MEDS: DOCUSATE SODIUM 100MG CAPSULE PO SCH ×2 (08:22→20:18)
[2020-10-17] MEDS: guaiFENesin 200 MG TAB PO SCH ×3 (08:22→20:19)
[2020-10-17] MEDS: PANTOPRAZOLE 40MG TAB (PROTONIX) PO SCH (08:22)
[2020-10-17] MEDS: GABAPENTIN 100 MG CAP PO SCH (08:22)
[2020-10-17] MEDS: LORATADINE 10 MG TAB PO SCH (08:22)
[2020-10-17] MEDS: SODIUM CHLORIDE NASAL 0.65% SPRAY BTL (OCEAN) SCH ×3 (08:23→20:20)
[2020-10-17] MEDS: **NOTE PATIENT COMMENT** MISC XX SCH (08:23)
[2020-10-17] MEDS: HEPARIN SOD (PORCINE) 5000UNITS/ML 1ML VIAL/SYRINGE SC SCH ×2 (08:23→20:18)
[2020-10-17] MEDS: FLUTICASONE PROP 0.05% NASAL SPRAY 16 GM (FLONASE) NARES SCH ×2 (08:24→20:21)
[2020-10-17] MEDS: REMEDY PHYTOPLEX Z-GUARD PASTE 113GM TUBE (FROM STOREROOM PRODUCT) TOP SCH ×3 (08:24→20:20)
[2020-10-17] MEDS: POLYSPORIN TOPICAL OINTMENT 15GM TOP SCH ×2 (08:24→20:20)
[2020-10-17] MEDS: POLYVINYL ALCOHOL OPHTH SOLN 15 ML(LIQUITEARS) OU SCH ×3 (08:24→17:00)
[2020-10-17] MEDS: BUDESONIDE 180MCG INHALER (PULMICORT FLEXHALER) INH SCH ×2 (11:20→19:24)
--- NOTE | 2020-10-17 11:49 | IPNPDOC ---
PM&R Progress Note DATE OF SERVICE: Oct 17, 2020 [employer] Progress Note Subjective: Patient stating she feels much better today and is able to bring up phlegm now. She denies fevers or chills. REVIEW OF SYSTEMS: The following is a completed review of systems and has been reviewed. Review of systems otherwise unremarkable. PAIN: Patient self reports left elbow soreness EYES: No recent vision changes EARS, NOSE, & THROAT: No throat pain, or new dysphagia but does say at home food sometimes sticks to back of throat, + rhinorrhea CARDIOVASCULAR: Denies chest pain or palpitations PULMONARY: + shortness of breath- +cough (improving) GASTROINTESTINAL: Denies constipation/diarrhea GENITOURINARY: denies dysuria MUSCULOSKELETAL: LUE weakness NEUROLOGICAL: left UE paresis, +fibromyalgia HEMATOLOGICAL: denies easy bruising SKIN: denies rash PSYCHIATRIC: Unremarkable All other review of systems found to be negative. PHYSICAL EXAMINATION: VITAL SIGNS: Please see below. GENERAL: Pleasant and cooperative. No acute distress. HEENT: PERRL. Extraocular movements intact. Clear conjunctiva, mild left sided facial droop CARDIOVASCULAR: Regular rate and rhythm. No murmurs, rubs, or gallops LUNGS: +decreased breath sounds throughout, no audible wheeze ABDOMEN: Soft, nontender, nondistended. Positive bowel sounds. Normal active bowel sounds. NEUROLOGICAL: Alert and oriented times three. Cranial nerves II through XII grossly intact. Sensation grossly intact in all 4limbs EXTREMITIES: 5\5 strength right upper extremities. 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 5/5 strength in left lower extremity. mild bilat UE and LE edema SKIN: blanchable sacral erythema, left dorsal hand with dried exudative abrasion ASSESSMENT:79-year-old F with past medical history of HTN, COPD who presents status post right frontal-parietal strokes in setting of right ICA stenosis PLAN: 1. 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 NEuro- s/p right parietal and frontal stroke in setting of severe right ICA stenosis- c/u ASA and plavix, possible CEA to be done outpatient, patient's son arranged appointment with Dr. Servin 10-13-20 and scheduled for CEA as outpatient 11-03-20 -fibromyalgia c/u cymbalta and gabapentin -restless leg- requip 3. cardiac- hx of HTN, c/u amlodipine, will hold losartan for LALA and add hydralazine -recent echo showing grade 1 diastolic CHF, will fluid restrict, daily weights, c/u lasix 20mg daily added, medicine consulted to assist in overall management -HLD c/u statin 4. Resp- c/u IV meropenem and vancomycin for left sided PNA confirmed by CT 10-14-20, leukocytosis improved, patient able to bring up phlegm, and overall feeling much betetr compared to Saturday -COPD on , c/u duonebs to q6h, c/u budesonide inhaler, c/u guaifnesain for congestion, and Acapella, c/u claritin, flonase, NS nasal drops, and artifical tears for her itchy dry eyes 5. Endo- hx of DM c/u ISS, consistent carb -hypothyroidism c/u synthroid 6. DVT ppx- heparin 7. GI ppx- protonix 8. - monitor PVRs 9. Pain- tylenol prn, lidoderm to neck 10. Renal- LALA on CKD resolved, will increase lasix 20mg to BID for edema and c/u to monitor kidney function , ARB on hold 11. Dispo- 10-28-20 to home, progressing towards goals, left voicemail on son's answering machine today to discuss patient's clinical status Allergies Coded Allergies: Penicillins (Verified Allergy, Unknown, 10/01/20) Sulfa (Sulfonamide Antibiotics) (Verified Adverse Reaction, Mild, mouth sores, 10/01/20) Vital Signs Vital Signs Date Time Temp Pulse Resp B/P (MAP) Pulse Ox O2 Delivery O2 Flow Rate FiO2 10/17/20 09:00 2.0 10/17/20 08:23 84 167/71 10/17/20 06:00 98.3 18 94 Nasal Cannula Laboratory Data CBC/BMP Laboratory Tests 10/17/20 06:41 Labs 24H Laboratory Tests 2 10/16/20 11:49: Bedside Glucose (Misc Panel) 291H 10/16/20 14:47: Vancomycin Level Trough 12.9 10/16/20 16:32: Bedside Glucose (Misc Panel) 167H 10/16/20 20:08: Bedside Glucose (Misc Panel) 209H 10/17/20 06:41: Immature Granulocyte % (Auto) 1.6, Neutrophils (%) (Auto) 74.6H, Lymphocytes (%) (Auto) 12.4L, Monocytes (%) (Auto) 6.0H, Eosinophils (%) (Auto) 4.8H, Basophils (%) (Auto) 0.6, Neutrophils # (Auto) 7.5, Lymphocytes # (Auto) 1.3L, Monocytes # (Auto) 0.6, Eosinophils # (Auto) 0.5, Basophils # (Auto) 0.1, Nucleated Red B lood Cells % (auto) 0.0, Anion Gap 6L, Glomerular Filtration Rate 47.0, Calcium Level 8.8 10/17/20 11:21: Bedside Glucose (Misc Panel) 305H Microbiology Microbiology 10/15/20 Gram Stain - Final, Complete 10/15/20 Sputum Culture - Final, Complete 10/14/20 Blood Culture - Preliminary, Resulted No Growth after 48 hours. All Specime... 10/14/20 Blood Culture - Preliminary, Resulted No Growth after 48 hours. All Specime... 10/14/20 Respiratory Virus Panel (PCR) (RANI) - Final, Complete Current Medications Current Medications Current Medications Medications (Trade) Dose Ordered Sig/Mandi Route PRN Reason Start Time Stop Time Status Last Admin Dose Admin Acetaminophen (Tylenol Tab) 650 mg Q4HP PRN PO fever/MILD PAIN (PS 1-4) 10/07/20 14:45 10/12/20 20:16 Albuterol/ Ipratropium (Duoneb (Ipr 0.5mg/Alb 2.5mg)) 3 ml Q4HP PRN NEB SOB/WHEEZING 10/14/20 13:00 10/16/20 07:23 Albuterol/ Ipratropium (Duoneb (Ipr 0.5mg/Alb 2.5mg)) 3 ml RQ6H NEB 10/14/20 14:00 10/16/20 06:00 DC 10/16/20 01:29 Albuterol/ Ipratropium (Duoneb (Ipr 0.5mg/Alb 2.5mg)) 3 ml RQID NEB 10/12/20 12:00 10/14/20 14:02 DC 10/14/20 08:58 Albuterol/ Ipratropium (Duoneb (Ipr 0.5mg/Alb 2.5mg)) 3 ml RTID NEB 10/07/20 20:00 10/12/20 08:43 DC 10/12/20 07:17 Alprazolam (Xanax) 1 mg BIDP PRN PO ANXIETY 10/07/20 14:45 10/16/20 20:31 Amlodipine Besylate (Norvasc) 10 mg DAILY PO 10/08/20 11:15 10/17/20 08:23 Artificial Tears ([place] Tears) 2 drop QID OU 10/07/20 21:45 10/13/20 15:30 DC 10/13/20 12:53 Artificial Tears ([place] Tears) 2 drop TID@0900,1300,1700 OU 10/13/20 17:00 10/17/20 08:24 Aspirin (Ecotrin) 81 mg DAILY PO 10/08/20 09:00 10/17/20 08:22 Bacitracin/ Polymyxin B Sulfate (Polysporin Top Oint) 1 dose BID TOP 10/12/20 09:00 10/13/20 15:39 DC 10/13/20 09:04 Bacitracin/ Polymyxin B Sulfate (Polysporin Top Oint) 1 dose BID@0900,1930 TOP 10/13/20 19:30 10/17/20 08:24 Bisacodyl (Dulcolax Suppository) 10 mg DAILYPRN PRN [place] CONSTIPATION 10/07/20 14:45 Budesonide (Pulmicort Flexhaler) 2 puff RBID INH 10/12/20 08:00 10/17/20 11:20 Clopidogrel Bisulfate (PLAVix) 75 mg DAILY PO 10/08/20 09:00 10/17/20 08:22 Dextrose (Dextrose 50%) 25 ml ASDIRECTED PRN IV SEE LABEL COMMENTS 10/07/20 14:45 Docusate Sodium (Colace) 100 mg BID PO 10/07/20 21:00 10/13/20 15:45 DC 10/12/20 22:06 Docusate Sodium (Colace) 100 mg BID@0900,1930 PO 10/13/20 19:30 10/17/20 08:22 Duloxetine HCl (Cymbalta) 60 mg DAILY PO 10/08/20 09:00 10/17/20 08:22 Fluticasone Propionate (Flonase 0.05% Nasal [place]) 1 spray BID NARES 10/07/20 21:45 10/13/20 15:40 DC 10/13/20 09:04 Fluticasone Propionate (Flonase 0.05% Nasal [place]) 1 spray BID@0900,1930 NARES 10/13/20 19:30 10/17/20 08:24 Furosemide (Lasix) 20 mg DAILY PO 10/12/20 09:00 10/17/20 08:22 Gabapentin (Neurontin) 100 mg DAILY PO 10/08/20 09:00 10/17/20 08:22 Glucagon (Glucagon) 1 mg ASDIRECTED PRN SC SEE LABEL COMMENTS 10/07/20 14:45 Glucose (Glucose) 16 GM ASDIRECTED PRN PO SEE LABEL COMMENTS 10/07/20 14:45 Guaifenesin (Robitussin Tab) 400 mg TID PO 10/07/20 21:45 10/13/20 15:46 DC 10/13/20 08:38 Guaifenesin (Robitussin Tab) 400 mg TID@0900,1600,0 PO 10/13/20 16:00 10/17/20 08:22 Guaifenesin (Robitussin) 10 ml Q4HP PRN PO COUGH 10/14/20 18:00 Heparin Sodium (Porcine) (Heparin) 5,000 units Q12H SC 10/07/20 21:00 10/13/20 15:48 DC 10/13/20 08:40 Heparin Sodium (Porcine) (Heparin) 5,000 units Q12H SC 10/13/20 19:30 10/17/20 08:23 Home Med (Med Rec Complete!) ASDIRECTED XX 10/07/20 18:30 10/07/20 18:25 DC Hydralazine HCl (Apresoline) 25 mg Q6H PO 10/14/20 12:00 10/17/20 05:26 Insulin Detemir (Levemir Insulin) 5 units DAILY SC 10/14/20 11:15 10/17/20 08:21 Insulin Detemir (Levemir Insulin) 5 units QHS SC 10/08/20 21:00 10/10/20 10:47 DC 10/09/20 20:57 Insulin Detemir (Levemir Insulin) 10 units QHS SC 10/10/20 21:00 10/13/20 09:38 DC 10/12/20 22:05 Insulin Detemir (Levemir Insulin) 14 units QHS SC 10/13/20 21:00 10/16/20 20:34 Insulin Human Lispro (HumaLOG INSULIN) SEE PROTOCOL TABLE AC SC 10/07/20 17:30 10/17/20 08:21 Insulin Human Lispro (HumaLOG INSULIN) SEE PROTOCOL TABLE DAILY@1930 SC 10/13/20 19:30 10/15/20 19:52 Insulin Human Lispro (HumaLOG INSULIN) SEE PROTOCOL TABLE QHS SC 10/07/20 21:00 10/13/20 15:53 DC 10/12/20 22:06 Levothyroxine Sodium (Synthroid) 125 mcg DAILY@06 PO 10/08/20 06:00 10/17/20 05:26 Lidocaine (Lidoderm Patch) 1 patch DAILY@1930 TD 10/13/20 19:30 10/16/20 20:30 Lidocaine (Lidoderm Patch) 1 patch QHS TD 10/07/20 21:00 10/13/20 15:43 DC 10/12/20 22:05 Loratadine (Claritin) 10 mg DAILY PO 10/08/20 11:15 10/17/20 08:22 Losartan Potassium (Cozaar) 25 mg DAILY PO 10/08/20 09:00 10/14/20 15:39 DC 10/14/20 08:49 Meropenem 1 gm/IV Miscellaneous Supplies 50 ml @ 100 mls/hr Q12H IV 10/14/20 13:00 10/17/20 00:42 Meropenem 2 gm/ Sodium Chloride 100 ml @ 200 mls/hr Q8H IV 10/14/20 12:00 10/14/20 12:32 DC Non-Formulary Medication ( See Comment Field Below ) REMOVE LIDODERM PATCH DAILY XX 10/08/20 09:00 10/13/20 15:44 DC 10/13/20 09:04 Non-Formulary Medication ( See Comment Field Below ) REMOVE LIDODERM PATCH DAILY@0730 XX 10/14/20 07:30 10/17/20 08:23 Pantoprazole Sodium (Protonix) 40 mg DAILY PO 10/08/20 09:00 10/17/20 08:22 Ropinirole HCl (Requip) 1 mg DAILY@1930 PO 10/13/20 19:30 10/16/20 20:30 Ropinirole HCl (Requip) 1 mg QHS PO 10/07/20 21:00 10/13/20 15:50 DC 10/12/20 22:06 Senna (Senokot) 1 tab DAILY@1930 PO 10/13/20 19:30 10/16/20 20:31 Senna (Senokot) 1 tab QHS PO 10/07/20 21:00 10/13/20 15:50 DC 10/12/20 22:07 Simvastatin (Zocor) 20 mg DAILY@1930 PO 10/13/20 19:30 10/16/20 20:30 Simvastatin (Zocor) 20 mg QHS PO 10/07/20 21:00 10/13/20 15:52 DC 10/12/20 22:07 Sodium Chloride ([place] Nasal [place]) 2 spray TID NA 10/07/20 21:45 10/13/20 15:42 DC 10/13/20 09:04 Sodium Chloride ([place] Nasal [place]) 2 spray TID@0900,1600,1930 NA 10/13/20 16:00 10/17/20 08:23 Vancomycin HCl 500 mg/Dextrose 110 ml @ 110 mls/hr Q24H IV 10/15/20 17:00 10/16/20 18:04 Vancomycin HCl 750 mg/IV Miscellaneous Supplies 1 each/ Dextrose 275 ml @ 275 mls/hr Q24H IV 10/15/20 16:00 10/16/20 15:42 MAYI CLINTON MD Oct 17, 2020 11:49
[2020-10-17] MEDS: LACTOBACILLUS ACIDOPHILUS CAP (BACID) PO SCH ×3 (13:32→20:18)
[2020-10-17 14:00] VITALS: BP 160/69
[2020-10-17] MEDS: IPRATROPIUM 0.5MG/ALBUTEROL 2.5MG INH SOL UD 3ML (DUONEB) NEB PRN (19:25)
[2020-10-17] MEDS: LIDOCAINE 5% (LIDODERM) PATCH TD SCH (19:30)
[2020-10-17 20:00] VITALS: BP_SYST 130; BP_SYST 181; BP_DIAS 79
[2020-10-17] MEDS: ALPRAZolam 0.5 MG TAB PO PRN (20:18)
[2020-10-17] MEDS: SENNA 8.6 MG TAB (SENOKOT) PO SCH (20:18)
[2020-10-17] MEDS: SIMVASTATIN 20 MG TAB PO SCH (20:19)
[2020-10-17] MEDS: rOPINIRole 1MG TAB PO SCH (20:19)
[2020-10-18] MEDS: MEROPENEM INJ 1 GM in IV 1 EA IV SCH ×2 (00:58→12:34)
[2020-10-18 06:00] VITALS: BP 145/63
[2020-10-18] MEDS: **hydrALAZINE HCL** 25 MG TAB PO SCH ×4 (06:11→17:31)
[2020-10-18] MEDS: LEVOTHYROXINE 125MCG TABLET (0.125MG) PO SCH (06:11)
[2020-10-18] MEDS: **NOTE PATIENT COMMENT** MISC XX SCH (07:30)
[2020-10-18] MEDS: HumaLOG INSULIN (NovoLOG) PER UNIT SC SCH ×4 (07:47→20:08)
[2020-10-18] MEDS: DULoxetine 30 MG CAP (CYMBALTA) PO SCH (07:48)
[2020-10-18] MEDS: LEVEMIR (INSULIN DETEMIR) 1 UNITS/0.01ML SC SCH ×2 (07:48→20:09)
[2020-10-18] MEDS: LACTOBACILLUS ACIDOPHILUS CAP (BACID) PO SCH ×4 (07:48→20:07)
[2020-10-18] MEDS: FUROSEMIDE 20 MG TAB PO SCH ×2 (07:48→17:29)
[2020-10-18] MEDS: GABAPENTIN 100 MG CAP PO SCH (07:49)
[2020-10-18] MEDS: guaiFENesin 200 MG TAB PO SCH ×3 (07:49→20:07)
[2020-10-18] MEDS: ASPIRIN 81 MG ENTERIC TAB PO SCH (07:49)
[2020-10-18] MEDS: LORATADINE 10 MG TAB PO SCH (07:50)
[2020-10-18] MEDS: CLOPIDOGREL 75 MG TAB PO SCH (07:50)
[2020-10-18] MEDS: HEPARIN SOD (PORCINE) 5000UNITS/ML 1ML VIAL/SYRINGE SC SCH (07:50)
[2020-10-18] MEDS: PANTOPRAZOLE 40MG TAB (PROTONIX) PO SCH (07:50)
[2020-10-18] MEDS: DOCUSATE SODIUM 100MG CAPSULE PO SCH ×2 (07:51→20:07)
[2020-10-18] MEDS: POLYSPORIN TOPICAL OINTMENT 15GM TOP SCH ×2 (07:52→20:09)
[2020-10-18] MEDS: REMEDY PHYTOPLEX Z-GUARD PASTE 113GM TUBE (FROM STOREROOM PRODUCT) TOP SCH ×3 (07:53→19:30)
[2020-10-18] MEDS: FLUTICASONE PROP 0.05% NASAL SPRAY 16 GM (FLONASE) NARES SCH ×2 (07:53→20:08)
[2020-10-18] MEDS: POLYVINYL ALCOHOL OPHTH SOLN 15 ML(LIQUITEARS) OU SCH ×3 (07:53→17:00)
[2020-10-18] MEDS: SODIUM CHLORIDE NASAL 0.65% SPRAY BTL (OCEAN) SCH ×3 (07:53→20:08)
[2020-10-18] MEDS: BUDESONIDE 180MCG INHALER (PULMICORT FLEXHALER) INH SCH ×2 (08:06→20:00)
--- NOTE | 2020-10-18 11:00 | IPNPDOC ---
PM&R Progress Note DATE OF SERVICE: Oct 18, 2020 Stuffed Casing Tier Progress Note Subjective: Patient stating she was able to have a large bowel movement, denies any vaginal itching or dysuria while on antibiotics, and would like lotion for her legs and arms. REVIEW OF SYSTEMS: The following is a completed review of systems and has been reviewed. Review of systems otherwise unremarkable. PAIN: Patient self reports left elbow soreness EYES: No recent vision changes EARS, NOSE, & THROAT: No throat pain, or new dysphagia but does say at home food sometimes sticks to back of throat, + rhinorrhea CARDIOVASCULAR: Denies chest pain or palpitations PULMONARY: + shortness of breath- +cough (improving) GASTROINTESTINAL: Denies constipation/diarrhea GENITOURINARY: denies dysuria MUSCULOSKELETAL: LUE weakness NEUROLOGICAL: left UE paresis, +fibromyalgia HEMATOLOGICAL: denies easy bruising SKIN: denies rash PSYCHIATRIC: Unremarkable All other review of systems found to be negative. PHYSICAL EXAMINATION: VITAL SIGNS: Please see below. GENERAL: Pleasant and cooperative. No acute distress. HEENT: PERRL. Extraocular movements intact. Clear conjunctiva, mild left sided facial droop CARDIOVASCULAR: Regular rate and rhythm. No murmurs, rubs, or gallops LUNGS: +decreased breath sounds throughout, no audible wheeze ABDOMEN: Soft, nontender, nondistended. Positive bowel sounds. Normal active bowel sounds. NEUROLOGICAL: Alert and oriented times three. Cranial nerves II through XII grossly intact. Sensation grossly intact in all 4limbs EXTREMITIES: 5\5 strength right upper extremities. 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 5/5 strength in left lower extremity. mild bilat UE and LE edema (improving) SKIN: blanchable sacral erythema, left dorsal hand with dried exudative abrasion ASSESSMENT:79-year-old F with past medical history of HTN, COPD who presents status post right frontal-parietal strokes in setting of right ICA stenosis PLAN: 1. 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 NEuro- s/p right parietal and frontal stroke in setting of severe right ICA stenosis- c/u ASA and plavix, possible CEA to be done outpatient, patient's son arranged appointment with Dr. Servin 10-13-20 and scheduled for CEA as outpatient 11-03-20 -fibromyalgia c/u cymbalta and gabapentin -restless leg- requip 3. cardiac- hx of HTN, c/u amlodipine, will hold losartan for LALA and add hydralazine -recent echo showing grade 1 diastolic CHF, will fluid restrict, daily weights, c/u lasix 20mg BID, medicine consulted to assist in overall management -HLD c/u statin 4. Resp- c/u IV meropenem and vancomycin for left sided PNA confirmed by CT 10-14-20, leukocytosis improved, patient able to bring up phlegm, and overall feeling much better compared to Saturday, will transition to po antibiotics likely tomorrow depending on labs -COPD on , c/u duonebs to q6h, c/u budesonide inhaler, c/u guaifnesain for congestion, and Acapella, c/u Claritin, Flonase, NS nasal drops, and artificial tears for her itchy dry eyes 5. Endo- hx of DM c/u ISS, consistent carb -hypothyroidism c/u synthroid 6. DVT ppx- heparin 7. GI ppx- protonix 8. - monitor PVRs 9. Pain- tylenol prn, lidoderm to neck, k pad for back 10. Renal- LALA on CKD resolved,c/u lasix 20mg BID for edema and c/u to monitor kidney function , ARB on hold 11. Dispo- 10-28-20 to home, progressing towards goals, left voicemail on son's answering machine today to discuss patient's clinical status Allergies Coded Allergies: Penicillins (Verified Allergy, Unknown, 10/01/20) Sulfa (Sulfonamide Antibiotics) (Verified Adverse Reaction, Mild, mouth sores, 10/01/20) Vital Signs Vital Signs Date Time Temp Pulse Resp B/P (MAP) Pulse Ox O2 Delivery O2 Flow Rate FiO2 10/18/20 09:00 2.0 10/18/20 07:50 79 141/64 10/18/20 06:00 98.3 18 98 Room Air Laboratory Data Labs 24H Laboratory Tests 2 10/17/20 11:21: Bedside Glucose (Misc Panel) 305H 10/17/20 16:25: Bedside Glucose (Misc Panel) 165H 10/17/20 20:05: Bedside Glucose (Misc Panel) 262H 10/18/20 06:56: Bedside Glucose (Misc Panel) 213H Microbiology Microbiology 10/15/20 Gram Stain - Final, Complete 10/15/20 Sputum Culture - Final, Complete 10/14/20 Blood Culture - Preliminary, Resulted No Growth after 72 hours. All specime... 10/14/20 Blood Culture - Preliminary, Resulted No Growth after 72 hours. All specime... 10/14/20 Respiratory Virus Panel (PCR) (RANI) - Final, Complete Current Medications Current Medications Current Medications Medications (Trade) Dose Ordered Sig/Mandi Route PRN Reason Start Time Stop Time Status Last Admin Dose Admin Acetaminophen (Tylenol Tab) 650 mg Q4HP PRN PO fever/MILD PAIN (PS 1-4) 10/07/20 14:45 10/12/20 20:16 Albuterol/ Ipratropium (Duoneb (Ipr 0.5mg/Alb 2.5mg)) 3 ml Q4HP PRN NEB SOB/WHEEZING 10/14/20 13:00 10/17/20 19:25 Albuterol/ Ipratropium (Duoneb (Ipr 0.5mg/Alb 2.5mg)) 3 ml RQ6H NEB 10/14/20 14:00 10/16/20 06:00 DC 10/16/20 01:29 Albuterol/ Ipratropium (Duoneb (Ipr 0.5mg/Alb 2.5mg)) 3 ml RQID NEB 10/12/20 12:00 10/14/20 14:02 DC 10/14/20 08:58 Albuterol/ Ipratropium (Duoneb (Ipr 0.5mg/Alb 2.5mg)) 3 ml RTID NEB 10/07/20 20:00 10/12/20 08:43 DC 10/12/20 07:17 Alprazolam (Xanax) 1 mg BIDP PRN PO ANXIETY 10/07/20 14:45 10/17/20 20:18 Amlodipine Besylate (Norvasc) 10 mg DAILY PO 10/08/20 11:15 10/18/20 07:50 Artificial Tears ([place] Tears) 2 drop QID OU 10/07/20 21:45 10/13/20 15:30 DC 10/13/20 12:53 Artificial Tears ([place] Tears) 2 drop TID@0900,1300,1700 OU 10/13/20 17:00 10/18/20 07:53 Aspirin (Ecotrin) 81 mg DAILY PO 10/08/20 09:00 10/18/20 07:49 Bacitracin/ Polymyxin B Sulfate (Polysporin Top Oint) 1 dose BID TOP 10/12/20 09:00 10/13/20 15:39 DC 10/13/20 09:04 Bacitracin/ Polymyxin B Sulfate (Polysporin Top Oint) 1 dose BID@0900,1930 TOP 10/13/20 19:30 10/18/20 07:52 Bisacodyl (Dulcolax Suppository) 10 mg DAILYPRN PRN [place] CONSTIPATION 10/07/20 14:45 Budesonide (Pulmicort Flexhaler) 2 puff RBID INH 10/12/20 08:00 10/18/20 08:06 Clopidogrel Bisulfate (PLAVix) 75 mg DAILY PO 10/08/20 09:00 10/18/20 07:50 Dextrose (Dextrose 50%) 25 ml ASDIRECTED PRN IV SEE LABEL COMMENTS 10/07/20 14:45 Docusate Sodium (Colace) 100 mg BID PO 10/07/20 21:00 10/13/20 15:45 DC 10/12/20 22:06 Docusate Sodium (Colace) 100 mg BID@0900,1930 PO 10/13/20 19:30 10/18/20 07:51 Duloxetine HCl (Cymbalta) 60 mg DAILY PO 10/08/20 09:00 10/18/20 07:48 Fluticasone Propionate (Flonase 0.05% Nasal [place]) 1 spray BID NARES 10/07/20 21:45 10/13/20 15:40 DC 10/13/20 09:04 Fluticasone Propionate (Flonase 0.05% Nasal [place]) 1 spray BID@0900,1930 NARES 10/13/20 19:30 10/18/20 07:53 Furosemide (Lasix) 20 mg BID@0730,1730 PO 10/17/20 17:30 10/18/20 07:48 Furosemide (Lasix) 20 mg DAILY PO 10/12/20 09:00 10/17/20 11:45 DC 10/17/20 08:22 Gabapentin (Neurontin) 100 mg DAILY PO 10/08/20 09:00 10/18/20 07:49 Glucagon (Glucagon) 1 mg ASDIRECTED PRN SC SEE LABEL COMMENTS 10/07/20 14:45 Glucose (Glucose) 16 GM ASDIRECTED PRN PO SEE LABEL COMMENTS 10/07/20 14:45 Guaifenesin (Robitussin Tab) 400 mg TID PO 10/07/20 21:45 10/13/20 15:46 DC 10/13/20 08:38 Guaifenesin (Robitussin Tab) 400 mg TID@0900,1600,1930 PO 10/13/20 16:00 10/18/20 07:49 Guaifenesin (Robitussin) 10 ml Q4HP PRN PO COUGH 10/14/20 18:00 Heparin Sodium (Porcine) (Heparin) 5,000 units Q12H SC 10/07/20 21:00 10/13/20 15:48 DC 10/13/20 08:40 Heparin Sodium (Porcine) (Heparin) 5,000 units Q12H SC 10/13/20 19:30 10/18/20 07:50 Home Med (Med Rec Complete!) ASDIRECTED XX 10/07/20 18:30 10/07/20 18:25 DC Hydralazine HCl (Apresoline) 25 mg Q6H PO 10/14/20 12:00 10/18/20 06:11 Insulin Detemir (Levemir Insulin) 5 units DAILY SC 10/14/20 11:15 10/18/20 07:48 Insulin Detemir (Levemir Insulin) 5 units QHS SC 10/08/20 21:00 10/10/20 10:47 DC 10/09/20 20:57 Insulin Detemir (Levemir Insulin) 10 units QHS SC 10/10/20 21:00 10/13/20 09:38 DC 10/12/20 22:05 Insulin Detemir (Levemir Insulin) 14 units QHS SC 10/13/20 21:00 10/17/20 20:20 Insulin Human Lispro (HumaLOG INSULIN) SEE PROTOCOL TABLE AC SC 10/07/20 17:30 10/18/20 07:47 Insulin Human Lispro (HumaLOG INSULIN) SEE PROTOCOL TABLE DAILY@1930 SC 10/13/20 19:30 10/17/20 20:19 Insulin Human Lispro (HumaLOG INSULIN) SEE PROTOCOL TABLE QHS SC 10/07/20 21:00 10/13/20 15:53 DC 10/12/20 22:06 Lactobacillus Acidophilus (Bacid) 1 ea WMHS PO 10/17/20 12:30 10/18/20 07:48 Levothyroxine Sodium (Synthroid) 125 mcg DAILY@06 PO 10/08/20 06:00 10/18/20 06:11 Lidocaine (Lidoderm Patch) 1 patch DAILY@0 TD 10/13/20 19:30 10/16/20 20:30 Lidocaine (Lidoderm Patch) 1 patch QHS TD 10/07/20 21:00 10/13/20 15:43 DC 10/12/20 22:05 Loratadine (Claritin) 10 mg DAILY PO 10/08/20 11:15 10/18/20 07:50 Losartan Potassium (Cozaar) 25 mg DAILY PO 10/08/20 09:00 10/14/20 15:39 DC 10/14/20 08:49 Meropenem 1 gm/IV Miscellaneous Supplies 50 ml @ 100 mls/hr Q12H IV 10/14/20 13:00 10/18/20 00:58 Meropenem 2 gm/ Sodium Chloride 100 ml @ 200 mls/hr Q8H IV 10/14/20 12:00 10/14/20 12:32 DC Non-Formulary Medication ( See Comment Field Below ) REMOVE LIDODERM PATCH DAILY XX 10/08/20 09:00 10/13/20 15:44 DC 10/13/20 09:04 Non-Formulary Medication ( See Comment Field Below ) REMOVE LIDODERM PATCH DAILY@30 XX 10/14/20 07:30 10/17/20 08:23 Pantoprazole Sodium (Protonix) 40 mg DAILY PO 10/08/20 09:00 10/18/20 07:50 Ropinirole HCl (Requip) 1 mg DAILY@1930 PO 10/13/20 19:30 10/17/20 20:19 Ropinirole HCl (Requip) 1 mg QHS PO 10/07/20 21:00 10/13/20 15:50 DC 10/12/20 22:06 Senna (Senokot) 1 tab DAILY@1930 PO 10/13/20 19:30 10/17/20 20:18 Senna (Senokot) 1 tab QHS PO 10/07/20 21:00 10/13/20 15:50 DC 10/12/20 22:07 Simvastatin (Zocor) 20 mg DAILY@193 PO 10/13/20 19:30 10/17/20 20:19 Simvastatin (Zocor) 20 mg QHS PO 10/07/20 21:00 10/13/20 15:52 DC 10/12/20 22:07 Sodium Chloride ([place] Nasal [place]) 2 spray TID NA 10/07/20 21:45 10/13/20 15:42 DC 10/13/20 09:04 Sodium Chloride ([place] Nasal [place]) 2 spray TID@0900,1600,1929 NA 10/13/20 16:00 10/18/20 07:53 Vancomycin HCl 500 mg/Dextrose 110 ml @ 110 mls/hr Q24H IV 10/15/20 17:00 10/17/20 13:02 DC 10/16/20 18:04 Vancomycin HCl 750 mg/IV Miscellaneous Supplies 1 each/ Dextrose 275 ml @ 275 mls/hr Q24H IV 10/15/20 16:00 10/17/20 13:02 DC 10/16/20 15:42 MAYI CLINTON MD Oct 18, 2020 11:00
[2020-10-18 14:00] VITALS: BP 114/55
[2020-10-18] MEDS: VANICREAM MOISTURIZING SKIN CREAM 113GM TUBE TOP SCH ×2 (17:29→20:10)
[2020-10-18 20:00] VITALS: BP 131/67
[2020-10-18] MEDS: SIMVASTATIN 20 MG TAB PO SCH (20:07)
[2020-10-18] MEDS: SENNA 8.6 MG TAB (SENOKOT) PO SCH (20:07)
[2020-10-18] MEDS: rOPINIRole 1MG TAB PO SCH (20:07)
[2020-10-18] MEDS: LIDOCAINE 5% (LIDODERM) PATCH TD SCH (20:08)
[2020-10-18] MEDS: ACETAMINOPHEN TAB 650MG DOSE (2X325MG) PO PRN (22:17)
[2020-10-18] MEDS: ALPRAZolam 0.5 MG TAB PO PRN (22:17)
[2020-10-19] MEDS: MEROPENEM INJ 1 GM in IV 1 EA IV SCH ×2 (00:18→12:15)
[2020-10-19] MEDS: LEVOTHYROXINE 125MCG TABLET (0.125MG) PO SCH (05:16)
[2020-10-19] MEDS: **hydrALAZINE HCL** 25 MG TAB PO SCH ×4 (05:16→17:36)
[2020-10-19 06:00] VITALS: BP 135/62
[2020-10-19] MEDS: BUDESONIDE 180MCG INHALER (PULMICORT FLEXHALER) INH SCH ×2 (07:23→20:00)
[2020-10-19] MEDS: DOCUSATE SODIUM 100MG CAPSULE PO SCH ×2 (07:42→20:10)
[2020-10-19] MEDS: ASPIRIN 81 MG ENTERIC TAB PO SCH (07:42)
[2020-10-19] MEDS: LORATADINE 10 MG TAB PO SCH (07:42)
[2020-10-19] MEDS: ALPRAZolam 0.5 MG TAB PO PRN ×2 (07:42→20:11)
[2020-10-19] MEDS: LACTOBACILLUS ACIDOPHILUS CAP (BACID) PO SCH ×4 (07:43→20:11)
[2020-10-19] MEDS: HumaLOG INSULIN (NovoLOG) PER UNIT SC SCH ×4 (07:43→19:30)
[2020-10-19] MEDS: LEVEMIR (INSULIN DETEMIR) 1 UNITS/0.01ML SC SCH ×2 (07:43→20:12)
[2020-10-19] MEDS: **NOTE PATIENT COMMENT** MISC XX SCH ×2 (07:43→20:15)
[2020-10-19] MEDS: FUROSEMIDE 20 MG TAB PO SCH ×2 (07:44→17:36)
[2020-10-19] MEDS: DULoxetine 30 MG CAP (CYMBALTA) PO SCH (07:44)
[2020-10-19] MEDS: CLOPIDOGREL 75 MG TAB PO SCH (07:44)
[2020-10-19] MEDS: PANTOPRAZOLE 40MG TAB (PROTONIX) PO SCH (07:44)
[2020-10-19] MEDS: guaiFENesin 200 MG TAB PO SCH ×3 (07:44→20:11)
[2020-10-19] MEDS: GABAPENTIN 100 MG CAP PO SCH (07:44)
[2020-10-19] MEDS: REMEDY PHYTOPLEX Z-GUARD PASTE 113GM TUBE (FROM STOREROOM PRODUCT) TOP SCH ×3 (07:45→19:30)
[2020-10-19] MEDS: SODIUM CHLORIDE NASAL 0.65% SPRAY BTL (OCEAN) SCH ×3 (07:45→20:13)
[2020-10-19] MEDS: POLYVINYL ALCOHOL OPHTH SOLN 15 ML(LIQUITEARS) OU SCH ×3 (07:45→17:37)
[2020-10-19] MEDS: FLUTICASONE PROP 0.05% NASAL SPRAY 16 GM (FLONASE) NARES SCH ×2 (07:45→20:12)
[2020-10-19] MEDS: POLYSPORIN TOPICAL OINTMENT 15GM TOP SCH ×2 (07:45→20:13)
[2020-10-19] MEDS: VANICREAM MOISTURIZING SKIN CREAM 113GM TUBE TOP SCH ×2 (07:46→20:14)
[2020-10-19 07:56] LABS: CALCIUM LEVEL 9.7 MG/DL (8.8-10.2); CREATININE FOR GFR 1.18 MG/DL (0.55-1.30); POTASSIUM SERUM 4.7 MEQ/L (3.5-5.1)
[2020-10-19 08:59] LABS: BASO # 0.1 10^3/uL (0.0-0.2); EOS # 0.6 10^3/uL (0.0-0.5); EOS % 5.7 % (0.0-3.0); HEMATOCRIT 39.3 % (36.0-47.0); HEMOGLOBIN 11.8 g/dl (12.0-15.5); LYMPH # 1.6 10^3/uL (1.5-5.0); MEAN CORPUSCULAR HEMOGLOBIN 28.5 pg (27.0-33.0); MEAN CORPUSCULAR VOLUME 94.9 fl (80.0-96.0); MONO # 0.4 10^3/uL (0.0-0.8); MONO % 4.3 % (0.0-5.0); NEUTROPHILS # 7.2 10^3/uL (1.5-8.5); NEUTROPHILS % 70.6 % (36.0-66.0); PLATELET COUNT, AUTOMATED 296 10^3/uL (150-450); RED BLOOD COUNT 4.14 10^6/uL (4.00-5.40); WHITE BLOOD COUNT 10.1 10^3/uL (4.0-10.0)
[2020-10-19 12:14] VITALS: BP 150/64
[2020-10-19] MEDS: LIDOCAINE 5% (LIDODERM) PATCH TD SCH ×2 (12:46→20:13)
[2020-10-19 14:00] VITALS: BP 140/65
--- NOTE | 2020-10-19 15:37 | IPNPDOC ---
PM&R Progress Note DATE OF SERVICE: Oct 19, 2020 Traffic Personnel Supervisor Progress Note Subjective: Patient stating she thinks she will be fine at home alone when she gets discharged, but is concerned about falling because she often has a sudden urge to urinate and this is chronic. She is interested in trying a bladder relaxant. REVIEW OF SYSTEMS: The following is a completed review of systems and has been reviewed. Review of systems otherwise unremarkable. PAIN: Patient self reports left elbow soreness EYES: No recent vision changes EARS, NOSE, & THROAT: No throat pain, or new dysphagia but does say at home food sometimes sticks to back of throat, + rhinorrhea CARDIOVASCULAR: Denies chest pain or palpitations PULMONARY: + shortness of breath- +cough (improving) GASTROINTESTINAL: Denies constipation/diarrhea GENITOURINARY: denies dysuria MUSCULOSKELETAL: LUE weakness NEUROLOGICAL: left UE paresis, +fibromyalgia HEMATOLOGICAL: denies easy bruising SKIN: denies rash PSYCHIATRIC: Unremarkable All other review of systems found to be negative. PHYSICAL EXAMINATION: VITAL SIGNS: Please see below. GENERAL: Pleasant and cooperative. No acute distress. HEENT: PERRL. Extraocular movements intact. Clear conjunctiva, mild left sided facial droop CARDIOVASCULAR: Regular rate and rhythm. No murmurs, rubs, or gallops LUNGS: +decreased breath sounds throughout, no audible wheeze ABDOMEN: Soft, nontender, nondistended. Positive bowel sounds. Normal active bowel sounds. NEUROLOGICAL: Alert and oriented times three. Cranial nerves II through XII grossly intact. Sensation grossly intact in all 4limbs EXTREMITIES: 5\5 strength right upper extremities. 4/5 left elbow flexor, extensor, 4/5 wrist extension and senior commissary agent, 5\5 strength right lower extremity. 5/5 strength in left lower extremity. mild bilat UE and LE edema (improving) SKIN: blanchable sacral erythema, left dorsal hand with dried exudative abrasion ASSESSMENT:79-year-old F with past medical history of HTN, COPD who presents status post right frontal-parietal strokes in setting of right ICA stenosis PLAN: 1. 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 NEuro- s/p right parietal and frontal stroke in setting of severe right ICA stenosis- c/u ASA and plavix, possible CEA to be done outpatient, patient's son arranged appointment with Dr. Servin 10-13-20 and scheduled for CEA as outpatient 11-03-20 -fibromyalgia c/u cymbalta and gabapentin -restless leg- requip 3. cardiac- hx of HTN, c/u amlodipine, will hold losartan for LALA and add hydralazine -recent echo showing grade 1 diastolic CHF, will fluid restrict, daily weights, c/u lasix 20mg BID, medicine consulted to assist in overall management -HLD c/u statin 4. Resp- s/p vancomycin, c/u IV meropenem and for left sided PNA confirmed by CT 10-14-20, leukocytosis improved, patient able to bring up phlegm, and overall feeling much better compared to Saturday, will d/c meropenem tomorrow following 7 day course of IV -COPD on , c/u duonebs to q6h, c/u budesonide inhaler, c/u guaifnesain for congestion, and Acapella, c/u Claritin, Flonase, NS nasal drops, and artificial tears for her itchy dry eyes 5. Endo- hx of DM c/u ISS, consistent carb -hypothyroidism c/u synthroid 6. DVT ppx- TEDs, ambulating well, d/'c heparin due to increase injection site bleeding while on ASa and Plavix -repeat dopplers ordered for tomorrow 7. GI ppx- protonix 8. - patient with chronic urge incontinence, will start oxybutynin for ov eractive bladder 9. Pain- tylenol prn, lidoderm to neck, k pad for back 10. Renal- LALA on CKD resolved,c/u lasix 20mg BID for edema and c/u to monitor kidney function , ARB on hold 11. Dispo- 10-28-20 to home, progressing towards goals Allergies Coded Allergies: Penicillins (Verified Allergy, Unknown, 10/01/20) Sulfa (Sulfonamide Antibiotics) (Verified Adverse Reaction, Mild, mouth sores, 10/01/20) Vital Signs Vital Signs Date Time Temp Pulse Resp B/P (MAP) Pulse Ox O2 Delivery O2 Flow Rate FiO2 10/19/20 14:00 98.9 100 19 140/65 (90) 91 Room Air 10/19/20 08:00 2.0 Laboratory Data CBC/BMP Laboratory Tests 10/19/20 06:57 10/19/20 08:07 Labs 24H Laboratory Tests 2 10/18/20 16:37: Bedside Glucose (Misc Panel) 182H 10/18/20 19:23: Bedside Glucose (Misc Panel) 261H 10/19/20 05:18: Bedside Glucose (Misc Panel) 180H 10/19/20 06:57: Anion Gap 6L, Glomerular Filtration Rate 47.0, Calcium Level 9.7 10/19/20 08:07: Immature Granulocyte % (Auto) 2.4, Neutrophils (%) (Auto) 70.6H, Lymphocytes (%) (Auto) 16.0L, Monocytes (%) (Auto) 4.3, Eosinophils (%) (Auto) 5.7H, Basophils (%) (Auto) 1.0, Neutrophils # (Auto) 7.2, Lymphocytes # (Auto) 1.6, Monocytes # (Auto) 0.4, Eosinophils # (Auto) 0.6H, Basophils # (Auto) 0.1, Nucleated Red Blood Cells % (auto) 0.0 10/19/20 11:38: Bedside Glucose (Misc Panel) 214H Microbiology Microbiology 10/15/20 Gram Stain - Final, Complete 10/15/20 Sputum Culture - Final, Complete 10/14/20 Blood Culture - Final, Complete NO GROWTH AFTER 5 DAYS 10/14/20 Blood Culture - Final, Complete NO GROWTH AFTER 5 DAYS 10/14/20 Respiratory Virus Panel (PCR) (RANI) - Final, Complete Current Medications Current Medications Current Medications Medications (Trade) Dose Ordered Sig/Mandi Route PRN Reason Start Time Stop Time Status Last Admin Dose Admin Acetaminophen (Tylenol Tab) 650 mg Q4HP PRN PO fever/MILD PAIN (PS 1-4) 10/07/20 14:45 10/18/20 22:17 Albuterol/ Ipratropium (Duoneb (Ipr 0.5mg/Alb 2.5mg)) 3 ml Q4HP PRN NEB SOB/WHEEZING 10/14/20 13:00 10/17/20 19:25 Albuterol/ Ipratropium (Duoneb (Ipr 0.5mg/Alb 2.5mg)) 3 ml RQ6H NEB 10/14/20 14:00 10/16/20 06:00 DC 10/16/20 01:29 Albuterol/ Ipratropium (Duoneb (Ipr 0.5mg/Alb 2.5mg)) 3 ml RQID NEB 10/12/20 12:00 10/14/20 14:02 DC 10/14/20 08:58 Albuterol/ Ipratropium (Duoneb (Ipr 0.5mg/Alb 2.5mg)) 3 ml RTID NEB 10/07/20 20:00 10/12/20 08:43 DC 10/12/20 07:17 Alprazolam (Xanax) 1 mg BIDP PRN PO ANXIETY 10/07/20 14:45 10/19/20 07:42 Amlodipine Besylate (Norvasc) 10 mg DAILY PO 10/08/20 11:15 10/19/20 07:44 Artificial Tears ([place] Tears) 2 drop QID OU 10/07/20 21:45 10/13/20 15:30 DC 10/13/20 12:53 Artificial Tears ([place] Tears) 2 drop TID@0900,1300,1700 OU 10/13/20 17:00 10/19/20 07:45 Aspirin (Ecotrin) 81 mg DAILY PO 10/08/20 09:00 10/19/20 07:42 Bacitracin/ Polymyxin B Sulfate (Polysporin Top Oint) 1 dose BID TOP 10/12/20 09:00 10/13/20 15:39 DC 10/13/20 09:04 Bacitracin/ Polymyxin B Sulfate (Polysporin Top Oint) 1 dose BID@0900,1930 TOP 10/13/20 19:30 10/19/20 07:45 Bisacodyl (Dulcolax Suppository) 10 mg DAILYPRN PRN [place] CONSTIPATION 10/07/20 14:45 Budesonide (Pulmicort Flexhaler) 2 puff RBID INH 10/12/20 08:00 10/19/20 07:23 Clopidogrel Bisulfate (PLAVix) 75 mg DAILY PO 10/08/20 09:00 10/19/20 07:44 Dextrose (Dextrose 50%) 25 ml ASDIRECTED PRN IV SEE LABEL COMMENTS 10/07/20 14:45 Docusate Sodium (Colace) 100 mg BID PO 10/07/20 21:00 10/13/20 15:45 DC 10/12/20 22:06 Docusate Sodium (Colace) 100 mg BID@0900,1930 PO 10/13/20 19:30 10/19/20 07:42 Duloxetine HCl (Cymbalta) 60 mg DAILY PO 10/08/20 09:00 10/19/20 07:44 Emollient Cream (Vanicream) APPLY TO ARMS AND LEGS BID TOP 10/18/20 09:00 10/19/20 07:46 Fluticasone Propionate (Flonase 0.05% Nasal [place]) 1 spray BID NARES 10/07/20 21:45 10/13/20 15:40 DC 10/13/20 09:04 Fluticasone Propionate (Flonase 0.05% Nasal [place]) 1 spray BID@0900,1930 NARES 10/13/20 19:30 10/19/20 07:45 Furosemide (Lasix) 20 mg BID@0730,1730 PO 10/17/20 17:30 10/19/20 07:44 Furosemide (Lasix) 20 mg DAILY PO 10/12/20 09:00 10/17/20 11:45 DC 10/17/20 08:22 Gabapentin (Neurontin) 100 mg DAILY PO 10/08/20 09:00 10/19/20 07:44 Glucagon (Glucagon) 1 mg ASDIRECTED PRN SC SEE LABEL COMMENTS 10/07/20 14:45 Glucose (Glucose) 16 GM ASDIRECTED PRN PO SEE LABEL COMMENTS 10/07/20 14:45 Guaifenesin (Robitussin Tab) 400 mg TID PO 10/07/20 21:45 10/13/20 15:46 DC 10/13/20 08:38 Guaifenesin (Robitussin Tab) 400 mg TID@0900,1600,1930 PO 10/13/20 16:00 10/19/20 07:44 Guaifenesin (Robitussin) 10 ml Q4HP PRN PO COUGH 10/14/20 18:00 Heparin Sodium (Porcine) (Heparin) 5,000 units Q12H SC 10/07/20 21:00 10/13/20 15:48 DC 10/13/20 08:40 Heparin Sodium (Porcine) (Heparin) 5,000 units Q12H SC 10/13/20 19:30 10/18/20 11:03 DC 10/18/20 07:50 Home Med (Med Rec Complete!) ASDIRECTED XX 10/07/20 18:30 10/07/20 18:25 DC Hydralazine HCl (Apresoline) 25 mg Q6H PO 10/14/20 12:00 10/19/20 12:16 Insulin Detemir (Levemir Insulin) 5 units DAILY SC 10/14/20 11:15 10/19/20 07:43 Insulin Detemir (Levemir Insulin) 5 units QHS SC 10/08/20 21:00 10/10/20 10:47 DC 10/09/20 20:57 Insulin Detemir (Levemir Insulin) 10 units QHS SC 10/10/20 21:00 10/13/20 09:38 DC 10/12/20 22:05 Insulin Detemir (Levemir Insulin) 14 units QHS SC 10/13/20 21:00 10/18/20 20:09 Insulin Human Lispro (HumaLOG INSULIN) SEE PROTOCOL TABLE AC OK 10/07/20 17:30 10/19/20 12:15 Insulin Human Lispro (HumaLOG INSULIN) SEE PROTOCOL TABLE DAILY@193 SC 10/13/20 19:30 10/18/20 20:08 Insulin Human Lispro (HumaLOG INSULIN) SEE PROTOCOL TABLE QHS OK 10/07/20 21:00 10/13/20 15:53 DC 10/12/20 22:06 Lactobacillus Acidophilus (Bacid) 1 ea WMHS PO 10/17/20 12:30 10/19/20 12:15 Levothyroxine Sodium (Synthroid) 125 mcg DAILY@06 PO 10/08/20 06:00 10/19/20 05:16 Lidocaine (Lidoderm Patch) 1 patch DAILY TD 10/19/20 09:00 10/19/20 12:46 Lidocaine (Lidoderm Patch) 1 patch DAILY@1930 TD 10/13/20 19:30 10/18/20 20:08 Lidocaine (Lidoderm Patch) 1 patch QHS TD 10/07/20 21:00 10/13/20 15:43 DC 10/12/20 22:05 Loratadine (Claritin) 10 mg DAILY PO 10/08/20 11:15 10/19/20 07:42 Losartan Potassium (Cozaar) 25 mg DAILY PO 10/08/20 09:00 10/14/20 15:39 DC 10/14/20 08:49 Meropenem 1 gm/IV Miscellaneous Supplies 50 ml @ 100 mls/hr Q12H IV 10/14/20 13:00 10/21/20 11:00 10/19/20 12:15 Meropenem 2 gm/ Sodium Chloride 100 ml @ 200 mls/hr Q8H IV 10/14/20 12:00 10/14/20 12:32 DC Non-Formulary Medication ( See Comment Field Below ) REMOVE LIDODERM PATCH DAILY XX 10/08/20 09:00 10/13/20 15:44 DC 10/13/20 09:04 Non-Formulary Medication ( See Comment Field Below ) REMOVE LIDODERM PATCH DAILY@30 XX 10/14/20 07:30 10/19/20 07:43 Non-Formulary Medication ( See Comment Field Below ) REMOVE LIDODERM PATCH DAILY@ XX 10/19/20 21:00 Pantoprazole Sodium (Protonix) 40 mg DAILY PO 10/08/20 09:00 10/19/20 07:44 Ropinirole HCl (Requip) 1 mg DAILY@1930 PO 10/13/20 19:30 10/18/20 20:07 Ropinirole HCl (Requip) 1 mg QHS PO 10/07/20 21:00 10/13/20 15:50 DC 10/12/20 22:06 Senna (Senokot) 1 tab DAILY@0 PO 10/13/20 19:30 10/18/20 20:07 Senna (Senokot) 1 tab QHS PO 10/07/20 21:00 10/13/20 15:50 DC 10/12/20 22:07 Simvastatin (Zocor) 20 mg DAILY@1930 PO 10/13/20 19:30 10/18/20 20:07 Simvastatin (Zocor) 20 mg QHS PO 10/07/20 21:00 10/13/20 15:52 DC 10/12/20 22:07 Sodium Chloride ([place] Nasal [place]) 2 spray TID NA 10/07/20 21:45 10/13/20 15:42 DC 10/13/20 09:04 Sodium Chloride ([place] Nasal [place]) 2 spray TID@0900,1600,1930 NA 10/13/20 16:00 10/19/20 07:45 Vancomycin HCl 500 mg/Dextrose 110 ml @ 110 mls/hr Q24H IV 10/15/20 17:00 10/17/20 13:02 DC 10/16/20 18:04 Vancomycin HCl 750 mg/IV Miscellaneous Supplies 1 each/ Dextrose 275 ml @ 275 mls/hr Q24H IV 10/15/20 16:00 10/17/20 13:02 DC 10/16/20 15:42 MAYI CLINTON MD Oct 19, 2020 15:37
[2020-10-19 17:35] VITALS: BP 153/67
[2020-10-19 20:00] VITALS: BP 148/70
[2020-10-19] MEDS: SENNA 8.6 MG TAB (SENOKOT) PO SCH (20:11)
[2020-10-19] MEDS: oxyBUTYnin 5 MG TAB PO SCH (20:11)
[2020-10-19] MEDS: SIMVASTATIN 20 MG TAB PO SCH (20:11)
[2020-10-19] MEDS: ACETAMINOPHEN TAB 650MG DOSE (2X325MG) PO PRN (20:11)
[2020-10-19] MEDS: rOPINIRole 1MG TAB PO SCH (20:11)
[2020-10-20] MEDS: MEROPENEM INJ 1 GM in IV 1 EA IV SCH ×2 (02:20→12:03)
[2020-10-20] MEDS: **hydrALAZINE HCL** 25 MG TAB PO SCH ×4 (05:12→16:54)
[2020-10-20] MEDS: LEVOTHYROXINE 125MCG TABLET (0.125MG) PO SCH (05:12)
[2020-10-20 05:17] VITALS: BP 162/72
[2020-10-20] MEDS: guaiFENesin 200 MG TAB PO SCH ×3 (07:35→21:06)
[2020-10-20] MEDS: CLOPIDOGREL 75 MG TAB PO SCH (07:36)
[2020-10-20] MEDS: ASPIRIN 81 MG ENTERIC TAB PO SCH (07:36)
[2020-10-20] MEDS: FUROSEMIDE 20 MG TAB PO SCH ×2 (07:36→16:55)
[2020-10-20] MEDS: LORATADINE 10 MG TAB PO SCH (07:36)
[2020-10-20] MEDS: DULoxetine 30 MG CAP (CYMBALTA) PO SCH (07:36)
[2020-10-20] MEDS: ALPRAZolam 0.5 MG TAB PO PRN ×2 (07:36→21:06)
[2020-10-20] MEDS: GABAPENTIN 100 MG CAP PO SCH (07:36)
[2020-10-20] MEDS: PANTOPRAZOLE 40MG TAB (PROTONIX) PO SCH (07:36)
[2020-10-20] MEDS: DOCUSATE SODIUM 100MG CAPSULE PO SCH ×2 (07:36→21:06)
[2020-10-20] MEDS: LACTOBACILLUS ACIDOPHILUS CAP (BACID) PO SCH ×4 (07:36→21:06)
[2020-10-20] MEDS: LEVEMIR (INSULIN DETEMIR) 1 UNITS/0.01ML SC SCH ×2 (07:37→21:11)
[2020-10-20] MEDS: oxyBUTYnin 5 MG TAB PO SCH ×2 (07:37→21:06)
[2020-10-20] MEDS: HumaLOG INSULIN (NovoLOG) PER UNIT SC SCH ×4 (07:37→21:10)
[2020-10-20] MEDS: FLUTICASONE PROP 0.05% NASAL SPRAY 16 GM (FLONASE) NARES SCH ×2 (07:38→21:07)
[2020-10-20] MEDS: LIDOCAINE 5% (LIDODERM) PATCH TD SCH ×2 (07:38→21:09)
[2020-10-20] MEDS: SODIUM CHLORIDE NASAL 0.65% SPRAY BTL (OCEAN) SCH ×3 (07:38→21:08)
[2020-10-20] MEDS: **NOTE PATIENT COMMENT** MISC XX SCH ×2 (07:38→21:00)
[2020-10-20] MEDS: POLYVINYL ALCOHOL OPHTH SOLN 15 ML(LIQUITEARS) OU SCH ×3 (07:39→16:54)
[2020-10-20] MEDS: REMEDY PHYTOPLEX Z-GUARD PASTE 113GM TUBE (FROM STOREROOM PRODUCT) TOP SCH ×3 (07:39→19:30)
[2020-10-20] MEDS: POLYSPORIN TOPICAL OINTMENT 15GM TOP SCH ×2 (07:39→21:10)
[2020-10-20] MEDS: VANICREAM MOISTURIZING SKIN CREAM 113GM TUBE TOP SCH ×2 (07:40→21:11)
[2020-10-20] MEDS: BUDESONIDE 180MCG INHALER (PULMICORT FLEXHALER) INH SCH ×2 (08:00→20:46)
--- NOTE | 2020-10-20 09:33 | IPNPDOC ---
PM&R Progress Note DATE OF SERVICE: Oct 20, 2020 Student Development Coordinator Progress Note Subjective: Patient reporting she has some throat pain today, no fevers or chills. Her [id number] tested positive for covid . REVIEW OF SYSTEMS: The following is a completed review of systems and has been reviewed. Review of systems otherwise unremarkable. PAIN: Patient self reports left elbow soreness EYES: No recent vision changes EARS, NOSE, & THROAT: +throat pain CARDIOVASCULAR: Denies chest pain or palpitations PULMONARY: + shortness of breath- +cough (improving) GASTROINTESTINAL: Denies constipation/diarrhea GENITOURINARY: denies dysuria MUSCULOSKELETAL: LUE weakness NEUROLOGICAL: left UE paresis, +fibromyalgia HEMATOLOGICAL: denies easy bruising SKIN: denies rash PSYCHIATRIC: Unremarkable All other review of systems found to be negative. PHYSICAL EXAMINATION: VITAL SIGNS: Please see below. GENERAL: Pleasant and cooperative. No acute distress. HEENT: PERRL. Extraocular movements intact. Clear conjunctiva, mild left sided facial droop CARDIOVASCULAR: Regular rate and rhythm. No murmurs, rubs, or gallops LUNGS: +decreased breath sounds throughout, no audible wheeze ABDOMEN: Soft, nontender, nondistended. Positive bowel sounds. Normal active bowel sounds. NEUROLOGICAL: Alert and oriented times three. Cranial nerves II through XII grossly intact. Sensation grossly intact in all 4limbs EXTREMITIES: 5\5 strength right upper extremities. 4/5 left elbow flexor, extensor, 4/5 wrist extension and hospital internship, 5\5 strength right lower extremity. 5/5 strength in left lower extremity. mild bilat UE and LE edema (improving) SKIN: blanchable sacral erythema, left dorsal hand with dried exudative abrasion ASSESSMENT:79-year-old F with past medical history of HTN, COPD who presents status post right frontal-parietal strokes in setting of right ICA stenosis PLAN: 1. 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 NEuro- s/p right parietal and frontal stroke in setting of severe right ICA stenosis- c/u ASA and plavix, possible CEA to be done outpatient, patient's son arranged appointment with Dr. Servin 10-13-20 and scheduled for CEA as outpatient 2-18-21 -fibromyalgia c/u cymbalta and gabapentin -restless leg- requip 3. cardiac- hx of HTN, c/u amlodipine, will hold losartan for LALA and c/u hydralazine -recent echo showing grade 1 diastolic CHF, will fluid restrict, daily weights, c/u lasix 20mg BID, medicine consulted to assist in overall management -HLD c/u statin 4. Resp- s/p vancomycin, c/u IV meropenem and for left sided PNA confirmed by CT 10-14-20, leukocytosis improved, patient able to bring up phlegm, and overall feeling much better, however complains of mild sore throat, will repeat Resp Panel -plan to d/c meropenem and switch to po tomorrow depending on labs -COPD on , c/u duonebs to q6h, c/u budesonide inhaler, c/u guaifnesain for congestion, and Acapella, c/u Claritin, Flonase, NS nasal drops, and artificial tears for her itchy dry eyes 5. Endo- hx of DM c/u ISS, consistent carb -hypothyroidism c/u synthroid 6. DVT ppx- TEDs, ambulating well, d/'c heparin due to increase injection site bleeding while on ASa and Plavix -repeat dopplers negative for DVT 7. GI ppx- protonix 8. - patient with chronic urge incontinence,c/u oxybutynin for overactive bladder 9. Pain- tylenol prn, lidoderm to neck, k pad for back 10. Renal- LALA on CKD resolved,c/u lasix 20mg BID for edema and c/u to monitor kidney function , ARB on hold 11. Dispo- 10-28-20 to home, progressing towards goals Allergies Coded Allergies: Penicillins (Verified Allergy, Unknown, 10/01/20) Sulfa (Sulfonamide Antibiotics) (Verified Adverse Reaction, Mild, mouth sores, 10/01/20) Vital Signs Vital Signs Date Time Temp Pulse Resp B/P (MAP) Pulse Ox O2 Delivery O2 Flow Rate FiO2 10/20/20 07:36 77 162/72 10/20/20 05:17 97.3 20 98 Room Air 10/19/20 22:30 2.0 Laboratory Data Labs 24H Laboratory Tests 2 10/19/20 11:38: Bedside Glucose (Misc Panel) 214H 10/19/20 16:34: Bedside Glucose (Misc Panel) 179H 10/19/20 19:43: Bedside Glucose (Misc Panel) 193H 10/20/20 04:46: Bedside Glucose (Misc Panel) 194H Microbiology Microbiology 10/15/20 Gram Stain - Final, Complete 10/15/20 Sputum Culture - Final, Complete 10/14/20 Blood Culture - Final, Complete NO GROWTH AFTER 5 DAYS 10/14/20 Blood Culture - Final, Complete NO GROWTH AFTER 5 DAYS 10/14/20 Respiratory Virus Panel (PCR) (RANI) - Final, Complete Current Medications Current Medications Current Medications Medications (Trade) Dose Ordered Sig/Mandi Route PRN Reason Start Time Stop Time Status Last Admin Dose Admin Acetaminophen (Tylenol Tab) 650 mg Q4HP PRN PO fever/MILD PAIN (PS 1-4) 10/07/20 14:45 10/19/20 20:11 Albuterol/ Ipratropium (Duoneb (Ipr 0.5mg/Alb 2.5mg)) 3 ml Q4HP PRN NEB SOB/WHEEZING 10/14/20 13:00 10/17/20 19:25 Albuterol/ Ipratropium (Duoneb (Ipr 0.5mg/Alb 2.5mg)) 3 ml RQ6H NEB 10/14/20 14:00 10/16/20 06:00 DC 10/16/20 01:29 Albuterol/ Ipratropium (Duoneb (Ipr 0.5mg/Alb 2.5mg)) 3 ml RQID NEB 10/12/20 12:00 10/14/20 14:02 DC 10/14/20 08:58 Albuterol/ Ipratropium (Duoneb (Ipr 0.5mg/Alb 2.5mg)) 3 ml RTID NEB 10/07/20 20:00 10/12/20 08:43 DC 10/12/20 07:17 Alprazolam (Xanax) 1 mg BIDP PRN PO ANXIETY 10/07/20 14:45 10/20/20 07:36 Amlodipine Besylate (Norvasc) 10 mg DAILY PO 10/08/20 11:15 10/20/20 07:36 Artificial Tears (Akwa Tears) 2 drop QID OU 10/07/20 21:45 10/13/20 15:30 DC 10/13/20 12:53 Artificial Tears ([place] Tears) 2 drop TID@0900,1300,1700 OU 10/13/20 17:00 10/20/20 07:39 Aspirin (Ecotrin) 81 mg DAILY PO 10/08/20 09:00 10/20/20 07:36 Bacitracin/ Polymyxin B Sulfate (Polysporin Top Oint) 1 dose BID TOP 10/12/20 09:00 10/13/20 15:39 DC 10/13/20 09:04 Bacitracin/ Polymyxin B Sulfate (Polysporin Top Oint) 1 dose BID@899,1929 TOP 10/13/20 19:30 10/20/20 07:39 Bisacodyl (Dulcolax Suppository) 10 mg DAILYPRN PRN [place] CONSTIPATION 10/07/20 14:45 Budesonide (Pulmicort Flexhaler) 2 puff RBID INH 10/12/20 08:00 10/19/20 20:00 Clopidogrel Bisulfate (PLAVix) 75 mg DAILY PO 10/08/20 09:00 10/20/20 07:36 Dextrose (Dextrose 50%) 25 ml ASDIRECTED PRN IV SEE LABEL COMMENTS 10/07/20 14:45 Docusate Sodium (Colace) 100 mg BID PO 10/07/20 21:00 10/13/20 15:45 DC 10/12/20 22:06 Docusate Sodium (Colace) 100 mg BID@899,1929 PO 10/13/20 19:30 10/20/20 07:36 Duloxetine HCl (Cymbalta) 60 mg DAILY PO 10/08/20 09:00 10/20/20 07:36 Emollient Cream (Vanicream) APPLY TO ARMS AND LEGS BID TOP 10/18/20 09:00 10/20/20 07:40 Fluticasone Propionate (Flonase 0.05% Nasal [place]) 1 spray BID NARES 10/07/20 21:45 10/13/20 15:40 DC 10/13/20 09:04 Fluticasone Propionate (Flonase 0.05% Nasal [place]) 1 spray BID@899,1929 NARES 10/13/20 19:30 10/20/20 07:38 Furosemide (Lasix) 20 mg BID@0730,1730 PO 10/17/20 17:30 10/20/20 07:36 Furosemide (Lasix) 20 mg DAILY PO 10/12/20 09:00 10/17/20 11:45 DC 10/17/20 08:22 Gabapentin (Neurontin) 100 mg DAILY PO 10/08/20 09:00 10/20/20 07:36 Glucagon (Glucagon) 1 mg ASDIRECTED PRN SC SEE LABEL COMMENTS 10/07/20 14:45 Glucose (Glucose) 16 GM ASDIRECTED PRN PO SEE LABEL COMMENTS 10/07/20 14:45 Guaifenesin (Robitussin Tab) 400 mg TID PO 10/07/20 21:45 10/13/20 15:46 DC 10/13/20 08:38 Guaifenesin (Robitussin Tab) 400 mg TID@0900,1600,1930 PO 10/13/20 16:00 10/20/20 07:35 Guaifenesin (Robitussin) 10 ml Q4HP PRN PO COUGH 10/14/20 18:00 Heparin Sodium (Porcine) (Heparin) 5,000 units Q12H SC 10/07/20 21:00 10/13/20 15:48 DC 10/13/20 08:40 Heparin Sodium (Porcine) (Heparin) 5,000 units Q12H SC 10/13/20 19:30 10/18/20 11:03 DC 10/18/20 07:50 Home Med (Med Rec Complete!) ASDIRECTED XX 10/07/20 18:30 10/07/20 18:25 DC Hydralazine HCl (Apresoline) 25 mg Q6H PO 10/14/20 12:00 10/20/20 05:12 Insulin Detemir (Levemir Insulin) 5 units DAILY SC 10/14/20 11:15 10/20/20 07:37 Insulin Detemir (Levemir Insulin) 5 units QHS SC 10/08/20 21:00 10/10/20 10:47 DC 10/09/20 20:57 Insulin Detemir (Levemir Insulin) 10 units QHS SC 10/10/20 21:00 10/13/20 09:38 DC 10/12/20 22:05 Insulin Detemir (Levemir Insulin) 14 units QHS SC 10/13/20 21:00 10/19/20 20:12 Insulin Human Lispro (HumaLOG INSULIN) SEE PROTOCOL TABLE AC SC 10/07/20 17:30 10/20/20 07:37 Insulin Human Lispro (HumaLOG INSULIN) SEE PROTOCOL TABLE DAILY@1930 SC 10/13/20 19:30 10/18/20 20:08 Insulin Human Lispro (HumaLOG INSULIN) SEE PROTOCOL TABLE QHS SC 10/07/20 21:00 10/13/20 15:53 DC 10/12/20 22:06 Lactobacillus Acidophilus (Bacid) 1 ea WMHS PO 10/17/20 12:30 10/20/20 07:36 Levothyroxine Sodium (Synthroid) 125 mcg DAILY@06 PO 10/08/20 06:00 10/20/20 05:12 Lidocaine (Lidoderm Patch) 1 patch DAILY TD 10/19/20 09:00 10/20/20 07:38 Lidocaine (Lidoderm Patch) 1 patch DAILY@1930 TD 10/13/20 19:30 10/19/20 20:13 Lidocaine (Lidoderm Patch) 1 patch QHS TD 10/07/20 21:00 10/13/20 15:43 DC 10/12/20 22:05 Loratadine (Claritin) 10 mg DAILY PO 10/08/20 11:15 10/20/20 07:36 Losartan Potassium (Cozaar) 25 mg DAILY PO 10/08/20 09:00 10/14/20 15:39 DC 10/14/20 08:49 Meropenem 1 gm/IV Miscellaneous Supplies 50 ml @ 100 mls/hr Q12H IV 10/14/20 13:00 10/21/20 11:00 10/20/20 02:20 Meropenem 2 gm/ Sodium Chloride 100 ml @ 200 mls/hr Q8H IV 10/14/20 12:00 10/14/20 12:32 DC Non-Formulary Medication ( See Comment Field Below ) REMOVE LIDODERM PATCH DAILY XX 10/08/20 09:00 10/13/20 15:44 DC 10/13/20 09:04 Non-Formulary Medication ( See Comment Field Below ) REMOVE LIDODERM PATCH DAILY@0730 XX 10/14/20 07:30 10/20/20 07:38 Non-Formulary Medication ( See Comment Field Below ) REMOVE LIDODERM PATCH DAILY@21 XX 10/19/20 21:00 Oxybutynin Chloride (Ditropan) 5 mg BID PO 10/19/20 21:00 10/20/20 07:37 Pantoprazole Sodium (Protonix) 40 mg DAILY PO 10/08/20 09:00 10/20/20 07:36 Ropinirole HCl (Requip) 1 mg DAILY@1930 PO 10/13/20 19:30 10/19/20 20:11 Ropinirole HCl (Requip) 1 mg QHS PO 10/07/20 21:00 10/13/20 15:50 DC 10/12/20 22:06 Senna (Senokot) 1 tab DAILY@1930 PO 10/13/20 19:30 10/19/20 20:11 Senna (Senokot) 1 tab QHS PO 10/07/20 21:00 10/13/20 15:50 DC 10/12/20 22:07 Simvastatin (Zocor) 20 mg DAILY@1930 PO 10/13/20 19:30 10/19/20 20:11 Simvastatin (Zocor) 20 mg QHS PO 10/07/20 21:00 10/13/20 15:52 DC 10/12/20 22:07 Sodium Chloride ([place] Nasal [place]) 2 spray TID NA 10/07/20 21:45 10/13/20 15:42 DC 10/13/20 09:04 Sodium Chloride ([place] Nasal [place]) 2 spray TID@0900,1600,1930 NA 10/13/20 16:00 10/20/20 07:38 Vancomycin HCl 500 mg/Dextrose 110 ml @ 110 mls/hr Q24H IV 10/15/20 17:00 10/17/20 13:02 DC 10/16/20 18:04 Vancomycin HCl 750 mg/IV Miscellaneous Supplies 1 each/ Dextrose 275 ml @ 275 mls/hr Q24H IV 10/15/20 16:00 10/17/20 13:02 DC 10/16/20 15:42 MAYI CLINTON MD Oct 20, 2020 09:33
--- NOTE | 2020-10-20 09:39 | REP ---
INDICATION: immobility COMPARISON: None. TECHNIQUE: Amos scale and color Doppler evaluation bilateral lower extremities using linear high frequency transducer. FINDINGS: Ultrasound examination of the right and left lower extremity deep venous structures from the common femoral vein to the popliteal vein demonstrates normal compressibility flow and wave patterns in response to respiration and augmentation. There is no evidence for deep venous thrombosis. IMPRESSION: No evidence for deep venous thrombosis. <Electronically signed by Norbert Smith > 10/20/20 0936
[2020-10-20 11:16] LABS: BASO # 0.1 10^3/uL (0.0-0.2); EOS # 0.7 10^3/uL (0.0-0.5); EOS % 4.9 % (0.0-3.0); HEMOGLOBIN 11.9 g/dl (12.0-15.5); LYMPH # 1.7 10^3/uL (1.5-5.0); LYMPH % 13.2 % (24.0-44.0); MEAN CORPUSCULAR HEMOGLOBIN 28.5 pg (27.0-33.0); MEAN CORPUSCULAR HGB CONC 30.5 g/dl (32.0-36.5); MEAN CORPUSCULAR VOLUME 93.3 fl (80.0-96.0); MONO # 0.7 10^3/uL (0.0-0.8); MONO % 4.9 % (0.0-5.0); NEUTROPHILS # 9.7 10^3/uL (1.5-8.5); NEUTROPHILS % 73.7 % (36.0-66.0); PLATELET COUNT, AUTOMATED 329 10^3/uL (150-450); RED BLOOD COUNT 4.18 10^6/uL (4.00-5.40); WHITE BLOOD COUNT 13.2 10^3/uL (4.0-10.0)
[2020-10-20 11:49] VITALS: BP 142/60
[2020-10-20 14:00] VITALS: BP 117/58
[2020-10-20 16:53] VITALS: BP 149/67
[2020-10-20] MEDS: CEPACOL LOZENGE PO PRN (16:54)
[2020-10-20 20:00] VITALS: BP 128/65
[2020-10-20] MEDS: SENNA 8.6 MG TAB (SENOKOT) PO SCH (21:06)
[2020-10-20] MEDS: SIMVASTATIN 20 MG TAB PO SCH (21:06)
[2020-10-20] MEDS: ACETAMINOPHEN TAB 650MG DOSE (2X325MG) PO PRN (21:07)
[2020-10-20] MEDS: rOPINIRole 1MG TAB PO SCH (21:07)
[2020-10-21] MEDS: MEROPENEM INJ 1 GM in IV 1 EA IV SCH (00:50)
[2020-10-21 05:16] VITALS: BP 123/55
[2020-10-21] MEDS: **hydrALAZINE HCL** 25 MG TAB PO SCH ×4 (05:31→17:16)
[2020-10-21] MEDS: LEVOTHYROXINE 125MCG TABLET (0.125MG) PO SCH (05:36)
[2020-10-21 06:50] LABS: BASO # 0.1 10^3/uL (0.0-0.2); EOS # 0.7 10^3/uL (0.0-0.5); EOS % 5.9 % (0.0-3.0); HEMATOCRIT 36.2 % (36.0-47.0); HEMOGLOBIN 11.2 g/dl (12.0-15.5); LYMPH # 2.3 10^3/uL (1.5-5.0); LYMPH % 19.9 % (24.0-44.0); MEAN CORPUSCULAR HEMOGLOBIN 28.9 pg (27.0-33.0); MEAN CORPUSCULAR HGB CONC 30.9 g/dl (32.0-36.5); MEAN CORPUSCULAR VOLUME 93.3 fl (80.0-96.0); MONO # 0.7 10^3/uL (0.0-0.8); MONO % 5.8 % (0.0-5.0); NEUTROPHILS # 7.4 10^3/uL (1.5-8.5); PLATELET COUNT, AUTOMATED 279 10^3/uL (150-450); RED BLOOD COUNT 3.88 10^6/uL (4.00-5.40); WHITE BLOOD COUNT 11.6 10^3/uL (4.0-10.0)
[2020-10-21 07:21] LABS: CREATININE FOR GFR 1.17 MG/DL (0.55-1.30); GLOMERULAR FILTRATION RATE 47.5 (>39); POTASSIUM SERUM 4.1 MEQ/L (3.5-5.1)
[2020-10-21] MEDS: BUDESONIDE 180MCG INHALER (PULMICORT FLEXHALER) INH SCH ×2 (07:24→20:05)
[2020-10-21] MEDS: **NOTE PATIENT COMMENT** MISC XX SCH ×2 (07:30→19:48)
[2020-10-21] MEDS: REMEDY PHYTOPLEX Z-GUARD PASTE 113GM TUBE (FROM STOREROOM PRODUCT) TOP SCH ×3 (09:00→19:42)
[2020-10-21] MEDS: DOCUSATE SODIUM 100MG CAPSULE PO SCH ×2 (09:00→19:42)
[2020-10-21] MEDS: LORATADINE 10 MG TAB PO SCH (09:28)
[2020-10-21] MEDS: oxyBUTYnin 5 MG TAB PO SCH ×2 (09:28→19:47)
[2020-10-21] MEDS: ASPIRIN 81 MG ENTERIC TAB PO SCH (09:28)
[2020-10-21] MEDS: guaiFENesin 200 MG TAB PO SCH ×3 (09:28→19:41)
[2020-10-21] MEDS: PANTOPRAZOLE 40MG TAB (PROTONIX) PO SCH (09:28)
[2020-10-21] MEDS: LevoFLOXacin 750 MG TABLET PO SCH (09:29)
[2020-10-21] MEDS: CLOPIDOGREL 75 MG TAB PO SCH (09:29)
[2020-10-21] MEDS: GABAPENTIN 100 MG CAP PO SCH (09:29)
[2020-10-21] MEDS: LACTOBACILLUS ACIDOPHILUS CAP (BACID) PO SCH ×4 (09:29→19:47)
[2020-10-21] MEDS: FUROSEMIDE 20 MG TAB PO SCH ×2 (09:29→17:11)
[2020-10-21] MEDS: LEVEMIR (INSULIN DETEMIR) 1 UNITS/0.01ML SC SCH ×2 (09:30→19:47)
[2020-10-21] MEDS: HumaLOG INSULIN (NovoLOG) PER UNIT SC SCH ×4 (09:30→19:30)
[2020-10-21] MEDS: FLUTICASONE PROP 0.05% NASAL SPRAY 16 GM (FLONASE) NARES SCH ×2 (09:32→19:42)
[2020-10-21] MEDS: SODIUM CHLORIDE NASAL 0.65% SPRAY BTL (OCEAN) SCH ×3 (09:32→19:42)
[2020-10-21] MEDS: POLYSPORIN TOPICAL OINTMENT 15GM TOP SCH ×2 (09:33→19:43)
[2020-10-21] MEDS: POLYVINYL ALCOHOL OPHTH SOLN 15 ML(LIQUITEARS) OU SCH ×3 (09:33→17:00)
[2020-10-21] MEDS: LIDOCAINE 5% (LIDODERM) PATCH TD SCH ×2 (09:37→19:43)
[2020-10-21] MEDS: DULoxetine 30 MG CAP (CYMBALTA) PO SCH (09:37)
[2020-10-21] MEDS: VANICREAM MOISTURIZING SKIN CREAM 113GM TUBE TOP SCH ×2 (12:13→19:50)
[2020-10-21 14:00] VITALS: BP 134/72
[2020-10-21] MEDS: rOPINIRole 1MG TAB PO SCH (19:41)
[2020-10-21] MEDS: ALPRAZolam 0.5 MG TAB PO PRN (19:42)
[2020-10-21] MEDS: SENNA 8.6 MG TAB (SENOKOT) PO SCH (19:42)
[2020-10-21] MEDS: SIMVASTATIN 20 MG TAB PO SCH (19:42)
[2020-10-21 20:00] VITALS: BP 139/63
[2020-10-22] MEDS: **hydrALAZINE HCL** 25 MG TAB PO SCH ×4 (05:54→17:41)
[2020-10-22] MEDS: LEVOTHYROXINE 125MCG TABLET (0.125MG) PO SCH (05:54)
[2020-10-22 06:00] VITALS: BP 151/81
[2020-10-22] MEDS: **NOTE PATIENT COMMENT** MISC XX SCH ×2 (07:30→20:02)
[2020-10-22] MEDS: BUDESONIDE 180MCG INHALER (PULMICORT FLEXHALER) INH SCH ×2 (07:42→19:46)
[2020-10-22] MEDS: FUROSEMIDE 20 MG TAB PO SCH ×2 (08:53→17:41)
[2020-10-22] MEDS: HumaLOG INSULIN (NovoLOG) PER UNIT SC SCH ×4 (08:53→19:30)
[2020-10-22] MEDS: LORATADINE 10 MG TAB PO SCH (08:54)
[2020-10-22] MEDS: LEVEMIR (INSULIN DETEMIR) 1 UNITS/0.01ML SC SCH ×2 (08:54→19:55)
[2020-10-22] MEDS: ASPIRIN 81 MG ENTERIC TAB PO SCH (08:54)
[2020-10-22] MEDS: GABAPENTIN 100 MG CAP PO SCH (08:54)
[2020-10-22] MEDS: guaiFENesin 200 MG TAB PO SCH ×3 (08:54→19:54)
[2020-10-22] MEDS: LACTOBACILLUS ACIDOPHILUS CAP (BACID) PO SCH ×4 (08:54→19:54)
[2020-10-22] MEDS: PANTOPRAZOLE 40MG TAB (PROTONIX) PO SCH (08:54)
[2020-10-22] MEDS: oxyBUTYnin 5 MG TAB PO SCH ×2 (08:54→19:55)
[2020-10-22] MEDS: DULoxetine 30 MG CAP (CYMBALTA) PO SCH (08:55)
[2020-10-22] MEDS: DOCUSATE SODIUM 100MG CAPSULE PO SCH ×2 (08:55→19:54)
[2020-10-22] MEDS: CLOPIDOGREL 75 MG TAB PO SCH (08:55)
[2020-10-22] MEDS: SODIUM CHLORIDE NASAL 0.65% SPRAY BTL (OCEAN) SCH ×3 (08:56→19:57)
[2020-10-22] MEDS: POLYVINYL ALCOHOL OPHTH SOLN 15 ML(LIQUITEARS) OU SCH ×3 (08:56→17:42)
[2020-10-22] MEDS: FLUTICASONE PROP 0.05% NASAL SPRAY 16 GM (FLONASE) NARES SCH ×2 (08:56→19:57)
[2020-10-22] MEDS: REMEDY PHYTOPLEX Z-GUARD PASTE 113GM TUBE (FROM STOREROOM PRODUCT) TOP SCH ×3 (08:57→19:56)
[2020-10-22] MEDS: POLYSPORIN TOPICAL OINTMENT 15GM TOP SCH ×2 (08:57→19:30)
[2020-10-22] MEDS: VANICREAM MOISTURIZING SKIN CREAM 113GM TUBE TOP SCH ×2 (08:57→19:56)
[2020-10-22] MEDS: LIDOCAINE 5% (LIDODERM) PATCH TD SCH ×2 (08:58→19:30)
[2020-10-22 14:00] VITALS: BP 147/63
[2020-10-22] MEDS: SENNA 8.6 MG TAB (SENOKOT) PO SCH (19:55)
[2020-10-22] MEDS: rOPINIRole 1MG TAB PO SCH (19:55)
[2020-10-22] MEDS: ALPRAZolam 0.5 MG TAB PO PRN (19:55)
[2020-10-22] MEDS: SIMVASTATIN 20 MG TAB PO SCH (19:55)
[2020-10-22 20:00] VITALS: BP 133/60
[2020-10-23] MEDS: LEVOTHYROXINE 125MCG TABLET (0.125MG) PO SCH (05:30)
[2020-10-23] MEDS: LevoFLOXacin 750 MG TABLET PO SCH (05:30)
[2020-10-23] MEDS: **hydrALAZINE HCL** 25 MG TAB PO SCH ×4 (05:31→17:26)
[2020-10-23 06:02] VITALS: BP 158/73
[2020-10-23] MEDS: **NOTE PATIENT COMMENT** MISC XX SCH ×2 (07:30→19:51)
[2020-10-23] MEDS: BUDESONIDE 180MCG INHALER (PULMICORT FLEXHALER) INH SCH ×2 (07:43→18:19)
[2020-10-23] MEDS: LEVEMIR (INSULIN DETEMIR) 1 UNITS/0.01ML SC SCH ×2 (07:57→19:57)
[2020-10-23] MEDS: HumaLOG INSULIN (NovoLOG) PER UNIT SC SCH ×4 (07:57→19:40)
[2020-10-23] MEDS: FUROSEMIDE 20 MG TAB PO SCH ×2 (07:58→17:25)
[2020-10-23] MEDS: PANTOPRAZOLE 40MG TAB (PROTONIX) PO SCH (07:58)
[2020-10-23] MEDS: oxyBUTYnin 5 MG TAB PO SCH ×2 (07:58→19:49)
[2020-10-23] MEDS: LACTOBACILLUS ACIDOPHILUS CAP (BACID) PO SCH ×4 (07:58→19:49)
[2020-10-23] MEDS: guaiFENesin 200 MG TAB PO SCH ×3 (07:58→19:41)
[2020-10-23] MEDS: CLOPIDOGREL 75 MG TAB PO SCH (07:59)
[2020-10-23] MEDS: LORATADINE 10 MG TAB PO SCH (07:59)
[2020-10-23] MEDS: GABAPENTIN 100 MG CAP PO SCH (07:59)
[2020-10-23] MEDS: ASPIRIN 81 MG ENTERIC TAB PO SCH (07:59)
[2020-10-23] MEDS: DULoxetine 30 MG CAP (CYMBALTA) PO SCH (07:59)
[2020-10-23] MEDS: DOCUSATE SODIUM 100MG CAPSULE PO SCH ×2 (07:59→19:40)
[2020-10-23] MEDS: VANICREAM MOISTURIZING SKIN CREAM 113GM TUBE TOP SCH ×2 (08:00→19:51)
[2020-10-23] MEDS: REMEDY PHYTOPLEX Z-GUARD PASTE 113GM TUBE (FROM STOREROOM PRODUCT) TOP SCH ×3 (08:00→19:43)
[2020-10-23] MEDS: POLYSPORIN TOPICAL OINTMENT 15GM TOP SCH ×2 (08:00→19:30)
[2020-10-23] MEDS: LIDOCAINE 5% (LIDODERM) PATCH TD SCH ×2 (08:00→19:30)
[2020-10-23] MEDS: SODIUM CHLORIDE NASAL 0.65% SPRAY BTL (OCEAN) SCH ×3 (08:01→19:41)
[2020-10-23] MEDS: POLYVINYL ALCOHOL OPHTH SOLN 15 ML(LIQUITEARS) OU SCH ×3 (08:01→17:25)
[2020-10-23] MEDS: FLUTICASONE PROP 0.05% NASAL SPRAY 16 GM (FLONASE) NARES SCH ×2 (08:01→19:41)
[2020-10-23] MEDS: CEPACOL LOZENGE PO PRN (12:23)
[2020-10-23 14:00] VITALS: BP 135/78
[2020-10-23] MEDS: SENNA 8.6 MG TAB (SENOKOT) PO SCH (19:40)
[2020-10-23] MEDS: SIMVASTATIN 20 MG TAB PO SCH (19:41)
[2020-10-23] MEDS: rOPINIRole 1MG TAB PO SCH (19:41)
[2020-10-23] MEDS: ALPRAZolam 0.5 MG TAB PO PRN (19:41)
[2020-10-23 20:00] VITALS: BP 133/58
[2020-10-24] MEDS: LEVOTHYROXINE 125MCG TABLET (0.125MG) PO SCH (06:53)
[2020-10-24] MEDS: **hydrALAZINE HCL** 25 MG TAB PO SCH ×5 (06:54→23:53)
[2020-10-24 06:56] VITALS: BP 150/67
[2020-10-24] MEDS: GABAPENTIN 100 MG CAP PO SCH (07:36)
[2020-10-24] MEDS: CLOPIDOGREL 75 MG TAB PO SCH (07:36)
[2020-10-24] MEDS: LACTOBACILLUS ACIDOPHILUS CAP (BACID) PO SCH ×4 (07:37→20:14)
[2020-10-24] MEDS: DULoxetine 30 MG CAP (CYMBALTA) PO SCH (07:37)
[2020-10-24] MEDS: PANTOPRAZOLE 40MG TAB (PROTONIX) PO SCH (07:37)
[2020-10-24] MEDS: oxyBUTYnin 5 MG TAB PO SCH ×2 (07:37→20:14)
[2020-10-24] MEDS: LORATADINE 10 MG TAB PO SCH (07:37)
[2020-10-24] MEDS: ASPIRIN 81 MG ENTERIC TAB PO SCH (07:37)
[2020-10-24] MEDS: DOCUSATE SODIUM 100MG CAPSULE PO SCH ×2 (07:37→20:13)
[2020-10-24] MEDS: FUROSEMIDE 20 MG TAB PO SCH (07:37)
[2020-10-24] MEDS: guaiFENesin 200 MG TAB PO SCH ×3 (07:38→20:14)
[2020-10-24] MEDS: HumaLOG INSULIN (NovoLOG) PER UNIT SC SCH ×4 (07:38→19:30)
[2020-10-24] MEDS: LEVEMIR (INSULIN DETEMIR) 1 UNITS/0.01ML SC SCH ×2 (07:39→20:15)
[2020-10-24] MEDS: LIDOCAINE 5% (LIDODERM) PATCH TD SCH ×2 (07:39→20:16)
[2020-10-24] MEDS: SODIUM CHLORIDE NASAL 0.65% SPRAY BTL (OCEAN) SCH ×3 (07:40→20:17)
[2020-10-24] MEDS: FLUTICASONE PROP 0.05% NASAL SPRAY 16 GM (FLONASE) NARES SCH ×2 (07:40→20:18)
[2020-10-24] MEDS: POLYVINYL ALCOHOL OPHTH SOLN 15 ML(LIQUITEARS) OU SCH ×3 (07:40→17:01)
[2020-10-24] MEDS: POLYSPORIN TOPICAL OINTMENT 15GM TOP SCH ×2 (07:41→20:17)
[2020-10-24] MEDS: REMEDY PHYTOPLEX Z-GUARD PASTE 113GM TUBE (FROM STOREROOM PRODUCT) TOP SCH ×3 (07:41→20:17)
[2020-10-24] MEDS: VANICREAM MOISTURIZING SKIN CREAM 113GM TUBE TOP SCH ×2 (07:42→20:17)
[2020-10-24] MEDS: **NOTE PATIENT COMMENT** MISC XX SCH ×2 (07:43→20:19)
[2020-10-24 07:57] LABS: BASO # 0.1 10^3/uL (0.0-0.2); BASO % 0.7 % (0.0-1.0); EOS # 0.4 10^3/uL (0.0-0.5); EOS % 3.6 % (0.0-3.0); HEMATOCRIT 38.9 % (36.0-47.0); HEMOGLOBIN 11.7 g/dl (12.0-15.5); LYMPH # 2.3 10^3/uL (1.5-5.0); LYMPH % 18.4 % (24.0-44.0); MEAN CORPUSCULAR HEMOGLOBIN 28.3 pg (27.0-33.0); MEAN CORPUSCULAR HGB CONC 30.1 g/dl (32.0-36.5); MEAN CORPUSCULAR VOLUME 94.2 fl (80.0-96.0); MONO # 0.6 10^3/uL (0.0-0.8); MONO % 4.7 % (0.0-5.0); NEUTROPHILS # 8.7 10^3/uL (1.5-8.5); PLATELET COUNT, AUTOMATED 335 10^3/uL (150-450); RED BLOOD COUNT 4.13 10^6/uL (4.00-5.40); WHITE BLOOD COUNT 12.3 10^3/uL (4.0-10.0)
[2020-10-24] MEDS: BUDESONIDE 180MCG INHALER (PULMICORT FLEXHALER) INH SCH ×2 (08:00→20:14)
[2020-10-24 08:13] LABS: CALCIUM LEVEL 9.3 MG/DL (8.8-10.2); CREATININE FOR GFR 1.47 MG/DL (0.55-1.30); GLOMERULAR FILTRATION RATE 36.5 (>39); POTASSIUM SERUM 4.6 MEQ/L (3.5-5.1)
[2020-10-24 11:24] VITALS: BP 150/64
[2020-10-24] MEDS: CEPACOL LOZENGE PO PRN (13:25)
[2020-10-24 14:00] VITALS: BP 141/60
[2020-10-24 16:59] VITALS: BP 135/69
[2020-10-24 20:00] VITALS: BP 144/65
[2020-10-24] MEDS: METOPROLOL TART 25 MG TABLET PO SCH (20:13)
[2020-10-24] MEDS: rOPINIRole 1MG TAB PO SCH (20:13)
[2020-10-24] MEDS: ALPRAZolam 0.5 MG TAB PO PRN (20:14)
[2020-10-24] MEDS: SENNA 8.6 MG TAB (SENOKOT) PO SCH (20:14)
[2020-10-24] MEDS: SIMVASTATIN 20 MG TAB PO SCH (20:14)
[2020-10-25 05:18] VITALS: BP 150/64
[2020-10-25] MEDS: LEVOTHYROXINE 125MCG TABLET (0.125MG) PO SCH (06:28)
[2020-10-25] MEDS: **hydrALAZINE HCL** 25 MG TAB PO SCH ×3 (06:28→17:52)
[2020-10-25 06:58] LABS: BASO # 0.1 10^3/uL (0.0-0.2); BASO % 0.8 % (0.0-1.0); EOS # 0.5 10^3/uL (0.0-0.5); EOS % 4.2 % (0.0-3.0); HEMATOCRIT 37.1 % (36.0-47.0); HEMOGLOBIN 11.1 g/dl (12.0-15.5); LYMPH # 2.1 10^3/uL (1.5-5.0); LYMPH % 19.2 % (24.0-44.0); MEAN CORPUSCULAR HEMOGLOBIN 28.2 pg (27.0-33.0); MEAN CORPUSCULAR HGB CONC 29.9 g/dl (32.0-36.5); MEAN CORPUSCULAR VOLUME 94.4 fl (80.0-96.0); MONO # 0.6 10^3/uL (0.0-0.8); MONO % 5.7 % (0.0-5.0); NEUTROPHILS # 7.6 10^3/uL (1.5-8.5); NEUTROPHILS % 68.8 % (36.0-66.0); PLATELET COUNT, AUTOMATED 301 10^3/uL (150-450); RED BLOOD COUNT 3.93 10^6/uL (4.00-5.40); WHITE BLOOD COUNT 11.1 10^3/uL (4.0-10.0)
[2020-10-25 07:24] LABS: CREATININE FOR GFR 1.29 MG/DL (0.55-1.30); GLOMERULAR FILTRATION RATE 42.4 (>39); POTASSIUM SERUM 4.5 MEQ/L (3.5-5.1)
[2020-10-25 07:25] LABS: CALCIUM LEVEL 9.4 MG/DL (8.8-10.2)
[2020-10-25] MEDS: **NOTE PATIENT COMMENT** MISC XX SCH ×2 (07:30→20:02)
[2020-10-25] MEDS: HumaLOG INSULIN (NovoLOG) PER UNIT SC SCH ×4 (07:58→19:30)
[2020-10-25] MEDS: LACTOBACILLUS ACIDOPHILUS CAP (BACID) PO SCH ×4 (07:58→20:09)
[2020-10-25] MEDS: BUDESONIDE 180MCG INHALER (PULMICORT FLEXHALER) INH SCH ×2 (08:00→20:00)
[2020-10-25] MEDS: guaiFENesin 200 MG TAB PO SCH (09:00)
[2020-10-25] MEDS: REMEDY PHYTOPLEX Z-GUARD PASTE 113GM TUBE (FROM STOREROOM PRODUCT) TOP SCH ×3 (09:00→20:01)
[2020-10-25] MEDS: LIDOCAINE 5% (LIDODERM) PATCH TD SCH (09:00)
[2020-10-25] MEDS: POLYSPORIN TOPICAL OINTMENT 15GM TOP SCH (09:00)
[2020-10-25] MEDS: PANTOPRAZOLE 40MG TAB (PROTONIX) PO SCH (09:02)
[2020-10-25] MEDS: oxyBUTYnin 5 MG TAB PO SCH ×2 (09:02→20:00)
[2020-10-25] MEDS: GABAPENTIN 100 MG CAP PO SCH (09:02)
[2020-10-25] MEDS: DULoxetine 30 MG CAP (CYMBALTA) PO SCH (09:02)
[2020-10-25] MEDS: DOCUSATE SODIUM 100MG CAPSULE PO SCH ×2 (09:02→19:59)
[2020-10-25] MEDS: LEVEMIR (INSULIN DETEMIR) 1 UNITS/0.01ML SC SCH ×2 (09:02→20:09)
[2020-10-25] MEDS: ASPIRIN 81 MG ENTERIC TAB PO SCH (09:03)
[2020-10-25] MEDS: CLOPIDOGREL 75 MG TAB PO SCH (09:03)
[2020-10-25] MEDS: METOPROLOL TART 25 MG TABLET PO SCH ×2 (09:03→20:00)
[2020-10-25] MEDS: LORATADINE 10 MG TAB PO SCH (09:03)
[2020-10-25] MEDS: ATORVASTATIN 20 MG TAB PO SCH (09:05)
[2020-10-25] MEDS: VANICREAM MOISTURIZING SKIN CREAM 113GM TUBE TOP SCH ×2 (09:07→20:02)
[2020-10-25] MEDS: FLUTICASONE PROP 0.05% NASAL SPRAY 16 GM (FLONASE) NARES SCH ×2 (09:07→20:01)
[2020-10-25] MEDS: POLYVINYL ALCOHOL OPHTH SOLN 15 ML(LIQUITEARS) OU SCH ×3 (09:08→17:00)
[2020-10-25] MEDS: SODIUM CHLORIDE NASAL 0.65% SPRAY BTL (OCEAN) SCH ×3 (09:08→20:01)
--- NOTE | 2020-10-25 09:28 | IPNPDOC ---
PM&R Progress Note DATE OF SERVICE: Oct 25, 2020 Nuclear Test Technician Progress Note Subjective: Patient reporting she no longer is coughing and that she feels ready to go home on Saturday. She reports she has less urgency to urinate since starting the ox ybutynin. REVIEW OF SYSTEMS: The following is a completed review of systems and has been reviewed. Review of systems otherwise unremarkable. PAIN: Patient self reports left elbow soreness EYES: No recent vision changes EARS, NOSE, & THROAT: +throat pain (resolved) CARDIOVASCULAR: Denies chest pain or palpitations PULMONARY: shortness of breath and cough (improving) GASTROINTESTINAL: Denies constipation/diarrhea GENITOURINARY: denies dysuria MUSCULOSKELETAL: LUE weakness NEUROLOGICAL: left UE paresis, +fibromyalgia HEMATOLOGICAL: denies easy bruising SKIN: denies rash PSYCHIATRIC: Unremarkable All other review of systems found to be negative. PHYSICAL EXAMINATION: VITAL SIGNS: Please see below. GENERAL: Pleasant and cooperative. No acute distress. HEENT: PERRL. Extraocular movements intact. Clear conjunctiva, mild left sided facial droop CARDIOVASCULAR: Regular rate and rhythm. No murmurs, rubs, or gallops LUNGS: +decreased breath sounds throughout, no audible wheeze ABDOMEN: Soft, nontender, nondistended. Positive bowel sounds. Normal active bowel sounds. NEUROLOGICAL: Alert and oriented times three. Cranial nerves II through XII grossly intact. Sensation grossly intact in all 4limbs EXTREMITIES: 5\5 strength right upper extremities. 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 5/5 strength in left lower extremity. mild bilat UE and LE edema (improving) ASSESSMENT:79-year-old F with past medical history of HTN, COPD who presents status post right frontal-parietal strokes in setting of right ICA stenosis PLAN: 1. 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 NEuro- s/p right parietal and frontal stroke in setting of severe right ICA stenosis- c/u ASA and plavix, possible CEA to be done outpatient, patient's son arranged appointment with Dr. Servin 10-13-20 and scheduled for CEA as outpatient 11-03-20, cardiology consulted for pre-surgical clearance -fibromyalgia c/u cymbalta and gabapentin -restless leg- requip dose increased to 2mg qHS 3. cardiac- hx of HTN, c/u amlodipine, will hold losartan for LALA and c/u hydralazine -recent echo showing grade 1 diastolic CHF, will fluid restrict, daily weights, c/u lasix 20mg BID, medicine consulted to assist in overall management -HLD c/u statin 4. Resp- s/p vancomycin, c/u IV meropenem and for left sided PNA confirmed by CT 10-14-20, leukocytosis overall improved -s.p course of IV antibiotics and levofloxacin -COPD on , c/u duonebs to q6h, c/u budesonide inhaler, and Acapella, c/u Claritin, Flonase, NS nasal drops, and artificial tears for her itchy dry eyes- improving, cough much better stopped guaifenesin per patient's request 5. Endo- hx of DM c/u ISS, consistent carb -hypothyroidism c/u synthroid 6. DVT ppx- TEDs, ambulating well, d/'c heparin due to increase injection site bleeding while on ASa and Plavix -repeat dopplers negative for DVT 7. GI ppx- protonix 8. - patient with chronic urge incontinence,c/u oxybutynin for overactive bladder-improving 9. Pain- tylenol prn, lidoderm to neck, k pad for back 10. Renal- mild LALA on CKD since restarting lasxi, will stop 11. Dispo- 10-28-20 to home, progressing towards goals Allergies Coded Allergies: Penicillins (Verified Allergy, Unknown, 10/01/20) Sulfa (Sulfonamide Antibiotics) (Verified Adverse Reaction, Mild, mouth sores, 10/01/20) Vital Signs Vital Signs Date Time Temp Pulse Resp B/P (MAP) Pulse Ox O2 Delivery O2 Flow Rate FiO2 10/25/20 09:03 77 138/69 10/25/20 05:18 97.8 19 95 Room Air 10/23/20 09:00 2.0 Laboratory Data CBC/BMP Laboratory Tests 10/25/20 06:39 Labs 24H Laboratory Tests 2 10/24/20 11:25: Bedside Glucose (Misc Panel) 245H 10/24/20 16:36: Bedside Glucose (Misc Panel) 158H 10/24/20 19:45: Bedside Glucose (Misc Panel) 216H 10/25/20 04:49: Bedside Glucose (Misc Panel) 183H 10/25/20 06:39: Immature Granulocyte % (Auto) 1.3, Neutrophils (%) (Auto) 68.8H, Lymphocytes (%) (Auto) 19.2L, Monocytes (%) (Auto) 5.7H, Eosinophils (%) (Auto) 4.2H, Basophils (%) (Auto) 0.8, Neutrophils # (Auto) 7.6, Lymphocytes # (Auto) 2.1, Monocytes # (Auto) 0.6, Eosinophils # (Auto) 0.5, Basophils # (Auto) 0.1, Nucleated Red Blood Cells % (auto) 0.0, Anion Gap 4L, Glomerular Filtration Rate 42.4, Calcium Level 9.4 Microbiology Microbiology 10/20/20 Respiratory Virus Panel (PCR) (RANI) - Final, Complete 10/15/20 Gram Stain - Final, Complete 10/15/20 Sputum Culture - Final, Complete Current Medications Current Medications Current Medications Medications (Trade) Dose Ordered Sig/Mandi Route PRN Reason Start Time Stop Time Status Last Admin Dose Admin Acetaminophen (Tylenol Tab) 650 mg Q4HP PRN PO fever/MILD PAIN (PS 1-4) 10/07/20 14:45 10/20/20 21:07 Albuterol/ Ipratropium (Duoneb (Ipr 0.5mg/Alb 2.5mg)) 3 ml Q4HP PRN NEB SOB/WHEEZING 10/14/20 13:00 10/17/20 19:25 Albuterol/ Ipratropium (Duoneb (Ipr 0.5mg/Alb 2.5mg)) 3 ml RQ6H NEB 10/14/20 14:00 10/16/20 06:00 DC 10/16/20 01:29 Albuterol/ Ipratropium (Duoneb (Ipr 0.5mg/Alb 2.5mg)) 3 ml RQID NEB 10/12/20 12:00 10/14/20 14:02 DC 10/14/20 08:58 Albuterol/ Ipratropium (Duoneb (Ipr 0.5mg/Alb 2.5mg)) 3 ml RTID NEB 10/07/20 20:00 10/12/20 08:43 DC 10/12/20 07:17 Alprazolam (Xanax) 1 mg BIDP PRN PO ANXIETY 10/07/20 14:45 10/24/20 20:14 Amlodipine Besylate (Norvasc) 10 mg DAILY PO 10/08/20 11:15 10/25/20 09:04 Artificial Tears (Akwa Tears) 2 drop QID OU 10/07/20 21:45 10/13/20 15:30 DC 10/13/20 12:53 Artificial Tears (Akwa Tears) 2 drop TID@0900,1300,1700 OU 10/13/20 17:00 10/25/20 09:08 Aspirin (Ecotrin) 81 mg DAILY PO 10/08/20 09:00 10/25/20 09:03 Atorvastatin Calcium (Lipitor) 40 mg DAILY PO 10/25/20 09:00 10/25/20 09:05 Bacitracin/ Polymyxin B Sulfate (Polysporin Top Oint) 1 dose BID TOP 10/12/20 09:00 10/13/20 15:39 DC 10/13/20 09:04 Bacitracin/ Polymyxin B Sulfate (Polysporin Top Oint) 1 dose BID@0900,1930 TOP 10/13/20 19:30 10/24/20 20:17 Bisacodyl (Dulcolax Suppository) 10 mg DAILYPRN PRN LA CONSTIPATION 10/07/20 14:45 Budesonide (Pulmicort Flexhaler) 2 puff RBID INH 10/12/20 08:00 10/24/20 20:14 Cetylpyridinium Chloride (Cepacol) 1 desi Q2HP PRN PO COUGH 10/20/20 16:15 10/24/20 13:25 Clopidogrel Bisulfate (PLAVix) 75 mg DAILY PO 10/08/20 09:00 10/25/20 09:03 Dextrose (Dextrose 50%) 25 ml ASDIRECTED PRN IV SEE LABEL COMMENTS 10/07/20 14:45 Docusate Sodium (Colace) 100 mg BID PO 10/07/20 21:00 10/13/20 15:45 DC 10/12/20 22:06 Docusate Sodium (Colace) 100 mg BID@0900,1930 PO 10/13/20 19:30 10/25/20 09:02 Duloxetine HCl (Cymbalta) 60 mg DAILY PO 10/08/20 09:00 10/25/20 09:02 Emollient Cream (Vanicream) APPLY TO ARMS AND LEGS BID TOP 10/18/20 09:00 10/25/20 09:07 Fluticasone Propionate (Flonase 0.05% Nasal [place]) 1 spray BID NARES 10/07/20 21:45 10/13/20 15:40 DC 10/13/20 09:04 Fluticasone Propionate (Flonase 0.05% Nasal [place]) 1 spray BID@0900,1930 NARES 10/13/20 19:30 10/25/20 09:07 Furosemide (Lasix) 20 mg BID@0730,1730 PO 10/17/20 17:30 10/24/20 15:26 DC 10/24/20 07:37 Furosemide (Lasix) 20 mg DAILY PO 10/12/20 09:00 10/17/20 11:45 DC 10/17/20 08:22 Gabapentin (Neurontin) 100 mg DAILY PO 10/08/20 09:00 10/25/20 09:02 Glucagon (Glucagon) 1 mg ASDIRECTED PRN SC SEE LABEL COMMENTS 10/07/20 14:45 Glucose (Glucose) 16 GM ASDIRECTED PRN PO SEE LABEL COMMENTS 10/07/20 14:45 Guaifenesin (Robitussin Tab) 400 mg TID PO 10/07/20 21:45 10/13/20 15:46 DC 10/13/20 08:38 Guaifenesin (Robitussin Tab) 400 mg TID@0900,1600,1930 PO 10/13/20 16:00 10/24/20 20:14 Guaifenesin (Robitussin) 10 ml Q4HP PRN PO COUGH 10/14/20 18:00 Heparin Sodium (Porcine) (Heparin) 5,000 units Q12H SC 10/07/20 21:00 10/13/20 15:48 DC 10/13/20 08:40 Heparin Sodium (Porcine) (Heparin) 5,000 units Q12H SC 10/13/20 19:30 10/18/20 11:03 DC 10/18/20 07:50 Home Med (Med Rec Complete!) ASDIRECTED XX 10/07/20 18:30 10/07/20 18:25 DC Hydralazine HCl (Apresoline) 25 mg Q6H PO 10/14/20 12:00 10/25/20 06:28 Insulin Detemir (Levemir Insulin) 5 units DAILY SC 10/14/20 11:15 10/25/20 09:02 Insulin Detemir (Levemir Insulin) 5 units QHS SC 10/08/20 21:00 10/10/20 10:47 DC 10/09/20 20:57 Insulin Detemir (Levemir Insulin) 10 units QHS SC 10/10/20 21:00 10/13/20 09:38 DC 10/12/20 22:05 Insulin Detemir (Levemir Insulin) 14 units QHS SC 10/13/20 21:00 10/24/20 20:15 Insulin Human Lispro (HumaLOG INSULIN) SEE PROTOCOL TABLE AC WA 10/07/20 17:30 10/25/20 07:58 Insulin Human Lispro (HumaLOG INSULIN) SEE PROTOCOL TABLE DAILY@1930 SC 10/13/20 19:30 10/23/20 19:40 Insulin Human Lispro (HumaLOG INSULIN) SEE PROTOCOL TABLE QHS WA 10/07/20 21:00 10/13/20 15:53 DC 10/12/20 22:06 Lactobacillus Acidophilus (Bacid) 1 ea WMHS PO 10/17/20 12:30 10/25/20 07:58 Levofloxacin (Levaquin) 750 mg Q48H PO 10/21/20 06:00 10/23/20 06:01 DC 10/23/20 05:30 Levothyroxine Sodium (Synthroid) 125 mcg DAILY@06 PO 10/08/20 06:00 10/25/20 06:28 Lidocaine (Lidoderm Patch) 1 patch DAILY TD 10/19/20 09:00 10/24/20 07:39 Lidocaine (Lidoderm Patch) 1 patch DAILY@1930 TD 10/13/20 19:30 10/24/20 20:16 Lidocaine (Lidoderm Patch) 1 patch QHS TD 10/07/20 21:00 10/13/20 15:43 DC 10/12/20 22:05 Loratadine (Claritin) 10 mg DAILY PO 10/08/20 11:15 10/25/20 09:03 Losartan Potassium (Cozaar) 25 mg DAILY PO 10/08/20 09:00 10/14/20 15:39 DC 10/14/20 08:49 Meropenem 1 gm/IV Miscellaneous Supplies 50 ml @ 100 mls/hr Q12H IV 10/14/20 13:00 10/21/20 07:41 DC 10/21/20 00:50 Meropenem 2 gm/ Sodium Chloride 100 ml @ 200 mls/hr Q8H IV 10/14/20 12:00 10/14/20 12:32 DC Metoprolol Tartrate (Lopressor) 25 mg BID PO 10/24/20 21:00 10/25/20 09:03 Non-Formulary Medication ( See Comment Field Below ) REMOVE LIDODERM PATCH DAILY XX 10/08/20 09:00 10/13/20 15:44 DC 10/13/20 09:04 Non-Formulary Medication ( See Comment Field Below ) REMOVE LIDODERM PATCH DAILY@0730 XX 10/14/20 07:30 10/24/20 07:43 Non-Formulary Medication ( See Comment Field Below ) REMOVE LIDODERM PATCH DAILY@21 XX 10/19/20 21:00 10/24/20 20:19 Oxybutynin Chloride (Ditropan) 5 mg BID PO 10/19/20 21:00 10/25/20 09:02 Pantoprazole Sodium (Protonix) 40 mg DAILY PO 10/08/20 09:00 10/25/20 09:02 Ropinirole HCl (Requip) 1 mg DAILY@1930 PO 10/13/20 19:30 10/20/20 11:41 DC 10/19/20 20:11 Ropinirole HCl (Requip) 1 mg QHS PO 10/07/20 21:00 10/13/20 15:50 DC 10/12/20 22:06 Ropinirole HCl (Requip) 2 mg DAILY@1930 PO 10/20/20 19:30 10/24/20 20:13 Senna (Senokot) 1 tab DAILY@1930 PO 10/13/20 19:30 10/24/20 20:14 Senna (Senokot) 1 tab QHS PO 10/07/20 21:00 10/13/20 15:50 DC 10/12/20 22:07 Simvastatin (Zocor) 20 mg DAILY@1930 PO 10/13/20 19:30 10/25/20 08:20 DC 10/24/20 20:14 Simvastatin (Zocor) 20 mg QHS PO 10/07/20 21:00 10/13/20 15:52 DC 10/12/20 22:07 Sodium Chloride ([place]odge Nasal [place]) 2 spray TID NA 10/07/20 21:45 10/13/20 15:42 DC 10/13/20 09:04 Sodium Chloride ([place] Nasal [place]) 2 spray TID@0900,1600,1930 NA 10/13/20 16:00 10/25/20 09:08 Vancomycin HCl 500 mg/Dextrose 110 ml @ 110 mls/hr Q24H IV 10/15/20 17:00 10/17/20 13:02 DC 10/16/20 18:04 Vancomycin HCl 750 mg/IV Miscellaneous Supplies 1 each/ Dextrose 275 ml @ 275 mls/hr Q24H IV 10/15/20 16:00 10/17/20 13:02 DC 10/16/20 15:42 MAYI CLINTON MD Oct 25, 2020 09:28
[2020-10-25 14:00] VITALS: BP 117/56
[2020-10-25] MEDS: CEPACOL LOZENGE PO PRN (17:50)
[2020-10-25] MEDS: SENNA 8.6 MG TAB (SENOKOT) PO SCH (19:59)
[2020-10-25] MEDS: rOPINIRole 1MG TAB PO SCH (19:59)
[2020-10-25 20:00] VITALS: BP 128/58
[2020-10-25] MEDS: ALPRAZolam 0.5 MG TAB PO PRN (20:00)
[2020-10-26 05:24] VITALS: BP 163/71
[2020-10-26] MEDS: LEVOTHYROXINE 125MCG TABLET (0.125MG) PO SCH (05:34)
[2020-10-26] MEDS: **hydrALAZINE HCL** 25 MG TAB PO SCH ×5 (05:34→23:29)
[2020-10-26 07:33] LABS: BASO # 0.1 10^3/uL (0.0-0.2); BASO % 0.8 % (0.0-1.0); EOS # 0.5 10^3/uL (0.0-0.5); EOS % 4.3 % (0.0-3.0); HEMATOCRIT 37.2 % (36.0-47.0); HEMOGLOBIN 11.2 g/dl (12.0-15.5); LYMPH # 1.8 10^3/uL (1.5-5.0); LYMPH % 17.5 % (24.0-44.0); MEAN CORPUSCULAR HEMOGLOBIN 28.8 pg (27.0-33.0); MEAN CORPUSCULAR HGB CONC 30.1 g/dl (32.0-36.5); MEAN CORPUSCULAR VOLUME 95.6 fl (80.0-96.0); MONO # 0.4 10^3/uL (0.0-0.8); MONO % 4.1 % (0.0-5.0); NEUTROPHILS # 7.6 10^3/uL (1.5-8.5); NEUTROPHILS % 72.1 % (36.0-66.0); PLATELET COUNT, AUTOMATED 274 10^3/uL (150-450); RED BLOOD COUNT 3.89 10^6/uL (4.00-5.40); WHITE BLOOD COUNT 10.5 10^3/uL (4.0-10.0)
[2020-10-26 07:57] LABS: CALCIUM LEVEL 8.7 MG/DL (8.8-10.2); CREATININE FOR GFR 1.29 MG/DL (0.55-1.30); GLOMERULAR FILTRATION RATE 42.4 (>39); POTASSIUM SERUM 4.6 MEQ/L (3.5-5.1)
[2020-10-26] MEDS: BUDESONIDE 180MCG INHALER (PULMICORT FLEXHALER) INH SCH ×2 (08:00→20:02)
[2020-10-26] MEDS: LEVEMIR (INSULIN DETEMIR) 1 UNITS/0.01ML SC SCH ×2 (08:08→20:16)
[2020-10-26] MEDS: HumaLOG INSULIN (NovoLOG) PER UNIT SC SCH ×4 (08:08→19:30)
[2020-10-26] MEDS: DULoxetine 30 MG CAP (CYMBALTA) PO SCH (08:09)
[2020-10-26] MEDS: oxyBUTYnin 5 MG TAB PO SCH ×2 (08:09→20:06)
[2020-10-26] MEDS: METOPROLOL TART 25 MG TABLET PO SCH ×2 (08:09→20:06)
[2020-10-26] MEDS: ASPIRIN 81 MG ENTERIC TAB PO SCH (08:09)
[2020-10-26] MEDS: GABAPENTIN 100 MG CAP PO SCH (08:09)
[2020-10-26] MEDS: LORATADINE 10 MG TAB PO SCH (08:09)
[2020-10-26] MEDS: PANTOPRAZOLE 40MG TAB (PROTONIX) PO SCH (08:10)
[2020-10-26] MEDS: CLOPIDOGREL 75 MG TAB PO SCH (08:10)
[2020-10-26] MEDS: ATORVASTATIN 20 MG TAB PO SCH (08:10)
[2020-10-26] MEDS: LACTOBACILLUS ACIDOPHILUS CAP (BACID) PO SCH ×4 (08:10→20:07)
[2020-10-26] MEDS: DOCUSATE SODIUM 100MG CAPSULE PO SCH ×2 (08:10→20:06)
[2020-10-26] MEDS: SODIUM CHLORIDE NASAL 0.65% SPRAY BTL (OCEAN) SCH ×3 (08:10→20:07)
[2020-10-26] MEDS: POLYVINYL ALCOHOL OPHTH SOLN 15 ML(LIQUITEARS) OU SCH ×3 (08:11→17:38)
[2020-10-26] MEDS: FLUTICASONE PROP 0.05% NASAL SPRAY 16 GM (FLONASE) NARES SCH ×2 (08:11→20:07)
[2020-10-26] MEDS: REMEDY PHYTOPLEX Z-GUARD PASTE 113GM TUBE (FROM STOREROOM PRODUCT) TOP SCH ×3 (08:11→20:07)
[2020-10-26] MEDS: VANICREAM MOISTURIZING SKIN CREAM 113GM TUBE TOP SCH ×2 (08:22→20:18)
[2020-10-26] MEDS: **NOTE PATIENT COMMENT** MISC XX SCH ×2 (08:23→20:19)
--- NOTE | 2020-10-26 10:47 | CR ---
CONSULTATION DATE: 10/26/2020 HISTORY OF PRESENT ILLNESS: This is a 79-year-old female with a history of GERALD, COPD and Graves disease who first presented to the ED on October 01, 2020 with a chief complaint of fall and left upper extremity weakness. 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 On workup, she was found to have CVA in the frontal and parietal lobes on the right side and further workup showed that she had bilateral carotid stenosis. She is now in the acute rehab unit undergoing physical therapy and is showing signs of improvement. The cardiology team was called for preoperative clearance for carotid endarterectomy and that is scheduled for November 13. The patient is slated to be discharged home this October 28. The patient reports at this time that her strength has improved and her left arm weakness has improved as well. She does not feel as though her balance is going back to normal but she notes quite a lot of improvement from being on the rehab unit. She denies any chest pain, denies any shortness of breath or palpitations and she feels as though her physical status is getting closer to her baseline. Of note, the patient reports before her stroke she was not very mobile as she has a history of trauma to her back and her neck which limits her physical activity. PAST MEDICAL HISTORY: Significant for a history of hypertension, hyperlipidemia, COPD on two liters nasal cannula at home, GERALD, tobacco use, a history of Graves disease, status post radiation, now hypothyroid on Synthroid, a history of bladder cancer, a history of anxiety, restless legs syndrome, type 2 diabetes, chronic pain, fibromyalgia. History of atypical chest pain with angiogram done in [place] around the year 1999, reportedly negative. History of left bundle branch block, history of stress test done at least two or more years ago in [place] which were reportedly negative. PAST SURGICAL HISTORY: Neck/thyroid radiation treatments, cholecystectomy, bladder stent, back surgery, bilateral foot bunionectomy, right toe surgery, bilateral carpal tunnel surgery, bilateral cataracts, cystoscopy done on October 14, 2019. SOCIAL HISTORY: She denies any alcohol use. She smokes five cigarettes per day and has smoked for the past 64 years. She denies any illicit drug use. FAMILY HISTORY: Reviewed and noncontributory. REVIEW OF SYSTEMS: Generally, denies any recent weight loss, no fevers, no chills, no night sweats. Eyes: Denies any recent vision changes. Ears, nose and throat: She denies any throat pain, no new dysphagia, no rhinorrhea. Cardiovascular: She denies any chest pain or palpitations. Pulmonary: She denies shortness of breath, denies cough. Gastrointestinal: She denies any nausea, vomiting or diarrhea. No abdominal pain, no constipation. Genitourinary: She denies any dysuria. Musculoskeletal: She denies any weakness. Neurologic: She denies any focal deficits. She does have chronic pain from her fibromyalgia. Skin: She denies any rashes. PHYSICAL EXAMINATION: Vital signs: Temperature 97.8, pulse of 72, respiratory rate of 19. Blood pressure is 158/70 and she is 91% on room air. Generally, she is sitting up at the bedside. She is very calm, pleasant, cooperative, no acute distress. HEENT exam: She is normocephalic, atraumatic. Pupils were equally round and reactive to light. Extraocular movements are intact. Neck: Supple with no thyromegaly and no lymphadenopathy. She does have a scar from previous surgery in her left lateral neck. Cardiovascular: She has a 3/6 systolic ejection murmur heard best in the right upper and lower sternal borders radiating to the apex. She is regular rate and rhythm with no rubs or gallops, normal S1 and a normal S2. Respiratory: She is clear to auscultation bilaterally with no adventitious breath sounds appreciated. She has symmetric chest rise. Abdomen is obese but soft, nontender to palpation, positive bowel sounds, no organomegaly. Extremities: She moves all extremities well. She has no peripheral edema. No joint swelling noted. Skin: She has no obvious rashes. Psych: She has normal mood and affect. Neuro: She does have strength, 4/5 in the left upper extremity, 5/5 in all other extremities and there is no other obvious focal deficit such as facial droop. IMAGING: She on the last admission had an echocardiogram that was done on October 01, 2020 which showed a normal left ventricular size with moderate LVH and likely preserved LV systolic junction based on limited views. She has grade I diastolic dysfunction. She has some aortic sclerosis with trivial stenosis and mild insufficiency. She has no significant mitral and tricuspid valvular disease and she had some at least mildly elevated central venous pressure and mildly elevated pulmonary artery pressure. She did have a negative "bubble study." The patient also had an electrocardiogram and EKG when she was admitted which showed sinus rhythm at a rate of 61. She has a normal axis, good R wave progression and a left bundle branch block which is chronic for her. A vascular ultrasound was done on October 01, 2020, duplex carotid ultrasound which showed moderate diffuse plaquing bilaterally, bilateral stenosis of the internal carotid arteries, 60-79% with stenosis of the right internal carotid artery is at the upper aspect of the range and left internal carotid artery at the lower aspect of the range. ASSESSMENT: This is a 80-year-old female with a history of hypertension, GERALD, COPD on two liters of oxygen and recent right frontal and parietal stroke, currently in the acute rehab unit who was found to have bilateral carotid stenosis. Cardiology is consulted for preoperative clearance for carotid endarterectomy. PLAN: 1. Bilateral carotid artery stenosis. It does appear that this patient will need some further workup in order to have this carotid endarterectomy. She has a history of atypical chest pain as well as an angiogram in the past and a recent, as of two years ago, The angiogram was done more than 10 years ago which is therefore not helpful in this situation but we felt as though the patient will need a stress test to be done prior to this procedure as the risk outweighs the benefit of the procedure. Our plan for her is after discharge to have her follow up in Dr. Zuniga's cardiology office to have the stress test done. Given the fact that she has several comorbidities contributing to what could possibly be impending cardiac event, we do not find that the patient is suitable to be cleared, and is not appropriate for surgery at this time without this further workup. Should there be any questions, feel free to call at any point in time. Otherwise, agree with all of her current management and we will follow up with her after she is discharged from the acute rehab unit. Addendum MD Jerald: I have seen and examined the patient with Dr. Raymond and agree with her note. Mrs. Saxena has LBBB, poor exertional tolerance (even before CVA), atypical chest discomfort and multiple vascular risk factors. I believe it is appropriate to pursuit pharmacologic SPECT before providing clearance for vascular surgery. The procedure will be scheduled for next week. We took a liberty and started more potent statin, otherwise she is on appropriate medications. NAI
--- NOTE | 2020-10-26 11:39 | IPNPDOC ---
PM&R Progress Note DATE OF SERVICE: Oct 26, 2020 [employer] Progress Note Subjective: Patient stating she feels well today and thinks she will be ready for room privileges tomorrow. She says her daughter in-law has agreed to check in on her over the weekend and understands her vascular surgery needs to be postponed so that she can have more extensive cardiac work-up. REVIEW OF SYSTEMS: The following is a completed review of systems and has been reviewed. Review of systems otherwise unremarkable. PAIN: Patient self reports left elbow soreness EYES: No recent vision changes EARS, NOSE, & THROAT: +throat pain (resolved) CARDIOVASCULAR: Denies chest pain or palpitations PULMONARY: shortness of breath and cough (improving) GASTROINTESTINAL: Denies constipation/diarrhea GENITOURINARY: denies dysuria MUSCULOSKELETAL: LUE weakness NEUROLOGICAL: left UE paresis, +fibromyalgia HEMATOLOGICAL: denies easy bruising SKIN: denies rash PSYCHIATRIC: Unremarkable All other review of systems found to be negative. PHYSICAL EXAMINATION: VITAL SIGNS: Please see below. GENERAL: Pleasant and cooperative. No acute distress. HEENT: PERRL. Extraocular movements intact. Clear conjunctiva, mild left sided facial droop CARDIOVASCULAR: Regular rate and rhythm. No murmurs, rubs, or gallops LUNGS: +decreased breath sounds throughout, no audible wheeze ABDOMEN: Soft, nontender, nondistended. Positive bowel sounds. Normal active bowel sounds. NEUROLOGICAL: Alert and oriented times three. Cranial nerves II through XII grossly intact. Sensation grossly intact in all 4limbs EXTREMITIES: 5\5 strength right upper extremities. 4/5 left elbow flexor, extensor, 4/5 wrist extension and territory development manager, 5\5 strength right lower extremity. 5/5 strength in left lower extremity. mild bilat UE and LE edema (improving) ASSESSMENT:79-year-old F with past medical history of HTN, COPD who presents status post right frontal-parietal strokes in setting of right ICA stenosis PLAN: 1. 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 NEuro- s/p right parietal and frontal stroke in setting of severe right ICA stenosis- c/u ASA and plavix, possible CEA to be done outpatient, patient's son arranged appointment with Dr. Servin 10-13-20 and scheduled for CEA as outpatient 11-03-20, cardiology consulted for pre-surgical clearance -fibromyalgia c/u cymbalta and gabapentin -restless leg- requip dose increased to 2mg qHS 3. cardiac- hx of HTN, c/u amlodipine, will hold losartan for LALA and c/u hydralazine -recent echo showing grade 1 diastolic CHF, will fluid restrict, daily weights, c/u lasix 20mg BID, medicine consulted to assist in overall management -HLD c/u statin 4. Resp- s/p vancomycin, c/u IV meropenem and for left sided PNA confirmed by CT 10-14-20, leukocytosis overall improved -s.p course of IV antibiotics and levofloxacin -COPD on , c/u duonebs to q6h, c/u budesonide inhaler, and Acapella, c/u Claritin, Flonase, NS nasal drops, and artificial tears for her itchy dry eyes- improving, cough much better stopped guaifenesin per patient's request 5. Endo- hx of DM c/u ISS, consistent carb -hypothyroidism c/u synthroid 6. DVT ppx- TEDs, ambulating well, d/'c heparin due to increase injection site bleeding while on ASa and Plavix -repeat dopplers negative for DVT 7. GI ppx- protonix 8. - patient with chronic urge incontinence,c/u oxybutynin for overactive bladder-improving 9. Pain- tylenol prn, lidoderm to neck, k pad for back 10. Renal- mild LALA on CKD improving since stopping lasix 11. Dispo- 10-28-20 to home, progressing towards goals Allergies Coded Allergies: Penicillins (Verified Allergy, Unknown, 10/01/20) Sulfa (Sulfonamide Antibiotics) (Verified Adverse Reaction, Mild, mouth sores, 10/01/20) Vital Signs Vital Signs Date Time Temp Pulse Resp B/P (MAP) Pulse Ox O2 Delivery O2 Flow Rate FiO2 10/26/20 08:09 72 158/70 10/26/20 05:24 97.8 19 91 Room Air 10/25/20 09:00 2.0 Laboratory Data CBC/BMP Laboratory Tests 10/26/20 07:07 Labs 24H Laboratory Tests 2 10/25/20 16:26: Bedside Glucose (Misc Panel) 190H 10/25/20 19:42: Bedside Glucose (Misc Panel) 190H 10/26/20 04:53: Bedside Glucose (Misc Panel) 198H 10/26/20 07:07: Immature Granulocyte % (Auto) 1.2, Neutrophils (%) (Auto) 72.1H, Lymphocytes (%) (Auto) 17.5L, Monocytes (%) (Auto) 4.1, Eosinophils (%) (Auto) 4.3H, Basophils (%) (Auto) 0.8, Neutrophils # (Auto) 7.6, Lymphocytes # (Auto) 1.8, Monocytes # (Auto) 0.4, Eosinophils # (Auto) 0.5, Basophils # (Auto) 0.1, Nucleated Red Blood Cells % (auto) 0.0, Anion Gap 6L, Glomerular Filtration Rate 42.4, Calcium Level 8.7L 10/26/20 11:21: Bedside Glucose (Misc Panel) 198H Microbiology Microbiology 10/20/20 Respiratory Virus Panel (PCR) (RANI) - Final, Complete Current Medications Current Medications Current Medications Medications (Trade) Dose Ordered Sig/Mandi Route PRN Reason Start Time Stop Time Status Last Admin Dose Admin Acetaminophen (Tylenol Tab) 650 mg Q4HP PRN PO fever/MILD PAIN (PS 1-4) 10/07/20 14:45 10/20/20 21:07 Albuterol/ Ipratropium (Duoneb (Ipr 0.5mg/Alb 2.5mg)) 3 ml Q4HP PRN NEB SOB/WHEEZING 10/14/20 13:00 10/17/20 19:25 Albuterol/ Ipratropium (Duoneb (Ipr 0.5mg/Alb 2.5mg)) 3 ml RQ6H NEB 10/14/20 14:00 10/16/20 06:00 DC 10/16/20 01:29 Albuterol/ Ipratropium (Duoneb (Ipr 0.5mg/Alb 2.5mg)) 3 ml RQID NEB 10/12/20 12:00 10/14/20 14:02 DC 10/14/20 08:58 Albuterol/ Ipratropium (Duoneb (Ipr 0.5mg/Alb 2.5mg)) 3 ml RTID NEB 10/07/20 20:00 10/12/20 08:43 DC 10/12/20 07:17 Alprazolam (Xanax) 1 mg BIDP PRN PO ANXIETY 10/07/20 14:45 10/25/20 20:00 Amlodipine Besylate (Norvasc) 10 mg DAILY PO 10/08/20 11:15 10/26/20 08:10 Artificial Tears (Akwa Tears) 2 drop QID OU 10/07/20 21:45 10/13/20 15:30 DC 10/13/20 12:53 Artificial Tears (Akwa Tears) 2 drop TID@0900,1300,1700 OU 10/13/20 17:00 10/26/20 08:11 Aspirin (Ecotrin) 81 mg DAILY PO 10/08/20 09:00 10/26/20 08:09 Atorvastatin Calcium (Lipitor) 40 mg DAILY PO 10/25/20 09:00 10/26/20 08:10 Bacitracin/ Polymyxin B Sulfate (Polysporin Top Oint) 1 dose BID TOP 10/12/20 09:00 10/13/20 15:39 DC 10/13/20 09:04 Bacitracin/ Polymyxin B Sulfate (Polysporin Top Oint) 1 dose BID@0900,1930 TOP 10/13/20 19:30 10/25/20 13:56 DC 10/24/20 20:17 Bisacodyl (Dulcolax Suppository) 10 mg DAILYPRN PRN [place] CONSTIPATION 10/07/20 14:45 Budesonide (Pulmicort Flexhaler) 2 puff RBID INH 10/12/20 08:00 10/24/20 20:14 Cetylpyridinium Chloride (Cepacol) 1 desi Q2HP PRN PO COUGH 10/20/20 16:15 10/25/20 17:50 Clopidogrel Bisulfate (PLAVix) 75 mg DAILY PO 10/08/20 09:00 10/26/20 08:10 Dextrose (Dextrose 50%) 25 ml ASDIRECTED PRN IV SEE LABEL COMMENTS 10/07/20 14:45 Docusate Sodium (Colace) 100 mg BID PO 10/07/20 21:00 10/13/20 15:45 DC 10/12/20 22:06 Docusate Sodium (Colace) 100 mg BID@0900,1930 PO 10/13/20 19:30 10/26/20 08:10 Duloxetine HCl (Cymbalta) 60 mg DAILY PO 10/08/20 09:00 10/26/20 08:09 Emollient Cream (Vanicream) APPLY TO ARMS AND LEGS BID TOP 10/18/20 09:00 10/26/20 08:22 Fluticasone Propionate (Flonase 0.05% Nasal [place]) 1 spray BID NARES 10/07/20 21:45 10/13/20 15:40 DC 10/13/20 09:04 Fluticasone Propionate (Flonase 0.05% Nasal [place]) 1 spray BID@0900,1930 NARES 10/13/20 19:30 10/26/20 08:11 Furosemide (Lasix) 20 mg BID@0730,1730 PO 10/17/20 17:30 10/24/20 15:26 DC 10/24/20 07:37 Furosemide (Lasix) 20 mg DAILY PO 10/12/20 09:00 10/17/20 11:45 DC 10/17/20 08:22 Gabapentin (Neurontin) 100 mg DAILY PO 10/08/20 09:00 10/26/20 08:09 Glucagon (Glucagon) 1 mg ASDIRECTED PRN SC SEE LABEL COMMENTS 10/07/20 14:45 Glucose (Glucose) 16 GM ASDIRECTED PRN PO SEE LABEL COMMENTS 10/07/20 14:45 Guaifenesin (Robitussin Tab) 400 mg TID PO 10/07/20 21:45 10/13/20 15:46 DC 10/13/20 08:38 Guaifenesin (Robitussin Tab) 400 mg TID@0900,1600,1930 PO 10/13/20 16:00 10/25/20 13:56 DC 10/24/20 20:14 Guaifenesin (Robitussin) 10 ml Q4HP PRN PO COUGH 10/14/20 18:00 Heparin Sodium (Porcine) (Heparin) 5,000 units Q12H SC 10/07/20 21:00 10/13/20 15:48 DC 10/13/20 08:40 Heparin Sodium (Porcine) (Heparin) 5,000 units Q12H SC 10/13/20 19:30 10/18/20 11:03 DC 10/18/20 07:50 Home Med (Med Rec Complete!) ASDIRECTED XX 10/07/20 18:30 10/07/20 18:25 DC Hydralazine HCl (Apresoline) 25 mg Q6H PO 10/14/20 12:00 10/26/20 05:34 Insulin Detemir (Levemir Insulin) 5 units DAILY TN 10/14/20 11:15 10/26/20 08:08 Insulin Detemir (Levemir Insulin) 5 units QHS TN 10/08/20 21:00 10/10/20 10:47 DC 10/09/20 20:57 Insulin Detemir (Levemir Insulin) 10 units QHS TN 10/10/20 21:00 10/13/20 09:38 DC 10/12/20 22:05 Insulin Detemir (Levemir Insulin) 14 units QHS TN 10/13/20 21:00 10/25/20 20:09 Insulin Human Lispro (HumaLOG INSULIN) SEE PROTOCOL TABLE AC TN 10/07/20 17:30 10/26/20 08:08 Insulin Human Lispro (HumaLOG INSULIN) SEE PROTOCOL TABLE DAILY@1930 TN 10/13/20 19:30 10/23/20 19:40 Insulin Human Lispro (HumaLOG INSULIN) SEE PROTOCOL TABLE [facility] 10/07/20 21:00 10/13/20 15:53 DC 10/12/20 22:06 Lactobacillus Acidophilus (Bacid) 1 ea WMHS PO 10/17/20 12:30 10/26/20 08:10 Levofloxacin (Levaquin) 750 mg Q48H PO 10/21/20 06:00 10/23/20 06:01 DC 10/23/20 05:30 Levothyroxine Sodium (Synthroid) 125 mcg DAILY@06 PO 10/08/20 06:00 10/26/20 05:34 Lidocaine (Lidoderm Patch) 1 patch DAILY TD 10/19/20 09:00 10/25/20 13:56 DC 10/24/20 07:39 Lidocaine (Lidoderm Patch) 1 patch DAILY@1930 TD 10/13/20 19:30 10/25/20 13:56 DC 10/24/20 20:16 Lidocaine (Lidoderm Patch) 1 patch QHS TD 10/07/20 21:00 10/13/20 15:43 DC 10/12/20 22:05 Loratadine (Claritin) 10 mg DAILY PO 10/08/20 11:15 10/26/20 08:09 Losartan Potassium (Cozaar) 25 mg DAILY PO 10/08/20 09:00 10/14/20 15:39 DC 10/14/20 08:49 Meropenem 1 gm/IV Miscellaneous Supplies 50 ml @ 100 mls/hr Q12H IV 10/14/20 13:00 10/21/20 07:41 DC 10/21/20 00:50 Meropenem 2 gm/ Sodium Chloride 100 ml @ 200 mls/hr Q8H IV 10/14/20 12:00 10/14/20 12:32 DC Metoprolol Tartrate (Lopressor) 25 mg BID PO 10/24/20 21:00 10/26/20 08:09 Non-Formulary Medication ( See Comment Field Below ) REMOVE LIDODERM PATCH DAILY XX 10/08/20 09:00 10/13/20 15:44 DC 10/13/20 09:04 Non-Formulary Medication ( See Comment Field Below ) REMOVE LIDODERM PATCH DAILY@0730 XX 10/14/20 07:30 10/26/20 08:23 Non-Formulary Medication ( See Comment Field Below ) REMOVE LIDODERM PATCH DAILY@21 XX 10/19/20 21:00 10/24/20 20:19 Oxybutynin Chloride (Ditropan) 5 mg BID PO 10/19/20 21:00 10/26/20 08:09 Pantoprazole Sodium (Protonix) 40 mg DAILY PO 10/08/20 09:00 10/26/20 08:10 Ropinirole HCl (Requip) 1 mg DAILY@1930 PO 10/13/20 19:30 10/20/20 11:41 DC 10/19/20 20:11 Ropinirole HCl (Requip) 1 mg QHS PO 10/07/20 21:00 10/13/20 15:50 DC 10/12/20 22:06 Ropinirole HCl (Requip) 2 mg DAILY@1930 PO 10/20/20 19:30 10/25/20 19:59 Senna (Senokot) 1 tab DAILY@1930 PO 10/13/20 19:30 10/25/20 19:59 Senna (Senokot) 1 tab QHS PO 10/07/20 21:00 10/13/20 15:50 DC 10/12/20 22:07 Simvastatin (Zocor) 20 mg DAILY@1930 PO 10/13/20 19:30 10/25/20 08:20 DC 10/24/20 20:14 Simvastatin (Zocor) 20 mg QHS PO 10/07/20 21:00 10/13/20 15:52 DC 10/12/20 22:07 Sodium Chloride ([place] Nasal [place]) 2 spray TID NA 10/07/20 21:45 10/13/20 15:42 DC 10/13/20 09:04 Sodium Chloride ([place] Nasal [place]) 2 spray TID@0900,1600,1930 NA 10/13/20 16:00 10/26/20 08:10 Vancomycin HCl 500 mg/Dextrose 110 ml @ 110 mls/hr Q24H IV 10/15/20 17:00 10/17/20 13:02 DC 10/16/20 18:04 Vancomycin HCl 750 mg/IV Miscellaneous Supplies 1 each/ Dextrose 275 ml @ 275 mls/hr Q24H IV 10/15/20 16:00 10/17/20 13:02 DC 10/16/20 15:42 MAYI CLINTON MD Oct 26, 2020 11:39
[2020-10-26 14:00] VITALS: BP 148/67
[2020-10-26 20:00] VITALS: BP 160/70
[2020-10-26] MEDS: SENNA 8.6 MG TAB (SENOKOT) PO SCH (20:07)
[2020-10-26] MEDS: rOPINIRole 1MG TAB PO SCH (20:07)
[2020-10-26] MEDS: ALPRAZolam 0.5 MG TAB PO PRN (20:16)
[2020-10-27] MEDS: LEVOTHYROXINE 125MCG TABLET (0.125MG) PO SCH (05:46)
[2020-10-27] MEDS: **hydrALAZINE HCL** 25 MG TAB PO SCH ×3 (05:46→17:18)
[2020-10-27 06:00] VITALS: BP 140/63
[2020-10-27] MEDS: **NOTE PATIENT COMMENT** MISC XX SCH ×2 (07:30→19:45)
[2020-10-27] MEDS: BUDESONIDE 180MCG INHALER (PULMICORT FLEXHALER) INH SCH ×2 (08:00→20:05)
[2020-10-27] MEDS: oxyBUTYnin 5 MG TAB PO SCH ×2 (08:48→19:43)
[2020-10-27] MEDS: DULoxetine 30 MG CAP (CYMBALTA) PO SCH (08:48)
[2020-10-27] MEDS: PANTOPRAZOLE 40MG TAB (PROTONIX) PO SCH (08:48)
[2020-10-27] MEDS: HumaLOG INSULIN (NovoLOG) PER UNIT SC SCH ×4 (08:48→19:30)
[2020-10-27] MEDS: ASPIRIN 81 MG ENTERIC TAB PO SCH (08:48)
[2020-10-27] MEDS: CLOPIDOGREL 75 MG TAB PO SCH (08:48)
[2020-10-27] MEDS: LEVEMIR (INSULIN DETEMIR) 1 UNITS/0.01ML SC SCH (08:48)
[2020-10-27] MEDS: DOCUSATE SODIUM 100MG CAPSULE PO SCH ×2 (08:48→19:43)
[2020-10-27] MEDS: ATORVASTATIN 20 MG TAB PO SCH (08:48)
[2020-10-27] MEDS: LACTOBACILLUS ACIDOPHILUS CAP (BACID) PO SCH ×4 (08:49→19:42)
[2020-10-27] MEDS: LORATADINE 10 MG TAB PO SCH (08:49)
[2020-10-27] MEDS: GABAPENTIN 100 MG CAP PO SCH (08:49)
[2020-10-27] MEDS: METOPROLOL TART 25 MG TABLET PO SCH ×2 (08:52→19:43)
[2020-10-27] MEDS: SODIUM CHLORIDE NASAL 0.65% SPRAY BTL (OCEAN) SCH ×3 (08:53→19:44)
[2020-10-27] MEDS: FLUTICASONE PROP 0.05% NASAL SPRAY 16 GM (FLONASE) NARES SCH ×2 (08:53→17:17)
[2020-10-27] MEDS: REMEDY PHYTOPLEX Z-GUARD PASTE 113GM TUBE (FROM STOREROOM PRODUCT) TOP SCH ×3 (08:53→19:30)
[2020-10-27] MEDS: POLYVINYL ALCOHOL OPHTH SOLN 15 ML(LIQUITEARS) OU SCH ×3 (08:53→17:18)
[2020-10-27] MEDS: VANICREAM MOISTURIZING SKIN CREAM 113GM TUBE TOP SCH ×2 (08:53→20:15)
[2020-10-27] MEDS ORDERED: GABA-1171 PO (09:40)
[2020-10-27] MEDS ORDERED: SYNT125T PO (09:40)
[2020-10-27] MEDS ORDERED: CLOP75TA2 PO (09:40)
[2020-10-27] MEDS ORDERED: ASPI81TAEC PO ×2 (09:40→09:45)
[2020-10-27] MEDS ORDERED: DULO1CAP6 PO (09:40)
[2020-10-27] MEDS ORDERED: ATOR40TA75 PO (09:45)
[2020-10-27] MEDS ORDERED: HYDR25TA PO (09:45)
[2020-10-27] MEDS ORDERED: JANU25TA PO (09:45)
[2020-10-27] MEDS ORDERED: LOVA10TA PO (09:45)
[2020-10-27] MEDS ORDERED: RISATAB3 PO (09:45)
[2020-10-27] MEDS ORDERED: ROPI1TAB3 PO (09:45)
[2020-10-27] MEDS ORDERED: OXYB5TAB10 PO (09:45)
[2020-10-27] MEDS ORDERED: AMLO1TAB25 PO (09:45)
--- NOTE | 2020-10-27 09:52 | IPNPDOC ---
PM&R Progress Note DATE OF SERVICE: Oct 27, 2020 [employer] Progress Note Subjective: Patient seen in OT working on bathing, stating she feels ready for room privileges. REVIEW OF SYSTEMS: The following is a completed review of systems and has been reviewed. Review of systems otherwise unremarkable. PAIN: Patient self reports left elbow soreness EYES: No recent vision changes EARS, NOSE, & THROAT: +throat pain (resolved) CARDIOVASCULAR: Denies chest pain or palpitations PULMONARY: shortness of breath and cough (improving) GASTROINTESTINAL: Denies constipation/diarrhea GENITOURINARY: denies dysuria MUSCULOSKELETAL: LUE weakness NEUROLOGICAL: left UE paresis, +fibromyalgia HEMATOLOGICAL: denies easy bruising SKIN: denies rash PSYCHIATRIC: Unremarkable All other review of systems found to be negative. PHYSICAL EXAMINATION: VITAL SIGNS: Please see below. GENERAL: Pleasant and cooperative. No acute distress. HEENT: PERRL. Extraocular movements intact. Clear conjunctiva, mild left sided facial droop CARDIOVASCULAR: Regular rate and rhythm. No murmurs, rubs, or gallops LUNGS: +decreased breath sounds throughout, no audible wheeze ABDOMEN: Soft, nontender, nondistended. Positive bowel sounds. Normal active bowel sounds. NEUROLOGICAL: Alert and oriented times three. Cranial nerves II through XII grossly intact. Sensation grossly intact in all 4limbs EXTREMITIES: 5\5 strength right upper extremities. 4/5 left elbow flexor, extensor, 4/5 wrist extension and terminal supervisor, 5\5 strength right lower extremity. 5/5 strength in left lower extremity. mild bilat UE and LE edema (improving) ASSESSMENT:79-year-old F with past medical history of HTN, COPD who presents status post right frontal-parietal strokes in setting of right ICA stenosis PLAN: 1. 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 NEuro- s/p right parietal and frontal stroke in setting of severe right ICA stenosis- c/u ASA and plavix, possible CEA to be done outpatient, patient's son arranged appointment with Dr. Servin 10-13-20 and scheduled for CEA as outpatient 11-03-20, cardiology consulted for pre-surgical clearance -fibromyalgia c/u cymbalta and gabapentin -restless leg- requip dose increased to 2mg qHS 3. cardiac- hx of HTN, c/u amlodipine, will hold losartan for LALA and c/u hydralazine -recent echo showing grade 1 diastolic CHF, will fluid restrict, daily weights, c/u lasix 20mg BID, medicine consulted to assist in overall management -HLD c/u statin 4. Resp- s/p vancomycin, c/u IV meropenem and for left sided PNA confirmed by CT 10-14-20, leukocytosis overall improved -s.p course of IV antibiotics and levofloxacin -COPD on , c/u duonebs to q6h, c/u budesonide inhaler, and Acapella, c/u Claritin, Flonase, NS nasal drops, and artificial tears for her itchy dry eyes- improving, cough much better stopped guaifenesin per patient's request 5. Endo- hx of DM c/u ISS, consistent carb -hypothyroidism c/u synthroid 6. DVT ppx- TEDs, ambulating well, d/'c heparin due to increase injection site bleeding while on ASa and Plavix -repeat dopplers negative for DVT 7. GI ppx- protonix 8. - patient with chronic urge incontinence,c/u oxybutynin for overactive bladder-improving 9. Pain- tylenol prn, lidoderm to neck, k pad for back 10. Renal- mild LALA on CKD improving since stopping lasix 11. Dispo- 10-28-20 to home, progressing towards goals Allergies Coded Allergies: Penicillins (Verified Allergy, Unknown, 10/01/20) Sulfa (Sulfonamide Antibiotics) (Verified Adverse Reaction, Mild, mouth sores, 10/01/20) Vital Signs Vital Signs Date Time Temp Pulse Resp B/P (MAP) Pulse Ox O2 Delivery O2 Flow Rate FiO2 10/27/20 08:52 63 110/50 10/27/20 06:00 97.4 18 91 Room Air 10/25/20 09:00 2.0 Laboratory Data Labs 24H Laboratory Tests 2 10/26/20 11:21: Bedside Glucose (Misc Panel) 198H 10/26/20 16:28: Bedside Glucose (Misc Panel) 122H 10/26/20 20:05: Bedside Glucose (Misc Panel) 163H 10/27/20 06:44: Bedside Glucose (Misc Panel) 200H Microbiology Microbiology 10/20/20 Respiratory Virus Panel (PCR) (RANI) - Final, Complete Current Medications Current Medications Current Medications Medications (Trade) Dose Ordered Sig/Mandi Route PRN Reason Start Time Stop Time Status Last Admin Dose Admin Acetaminophen (Tylenol Tab) 650 mg Q4HP PRN PO fever/MILD PAIN (PS 1-4) 10/07/20 14:45 10/20/20 21:07 Albuterol/ Ipratropium (Duoneb (Ipr 0.5mg/Alb 2.5mg)) 3 ml Q4HP PRN NEB SOB/WHEEZING 10/14/20 13:00 10/17/20 19:25 Albuterol/ Ipratropium (Duoneb (Ipr 0.5mg/Alb 2.5mg)) 3 ml RQ6H NEB 10/14/20 14:00 10/16/20 06:00 DC 10/16/20 01:29 Albuterol/ Ipratropium (Duoneb (Ipr 0.5mg/Alb 2.5mg)) 3 ml RQID NEB 10/12/20 12:00 10/14/20 14:02 DC 10/14/20 08:58 Albuterol/ Ipratropium (Duoneb (Ipr 0.5mg/Alb 2.5mg)) 3 ml RTID NEB 10/07/20 20:00 10/12/20 08:43 DC 10/12/20 07:17 Alprazolam (Xanax) 1 mg BIDP PRN PO ANXIETY 10/07/20 14:45 10/26/20 20:16 Amlodipine Besylate (Norvasc) 10 mg DAILY PO 10/08/20 11:15 10/26/20 08:10 Artificial Tears (Akwa Tears) 2 drop QID OU 10/07/20 21:45 10/13/20 15:30 DC 10/13/20 12:53 Artificial Tears (Akwa Tears) 2 drop TID@0900,1300,1700 OU 10/13/20 17:00 10/27/20 08:53 Aspirin (Ecotrin) 81 mg DAILY PO 10/08/20 09:00 10/27/20 08:48 Atorvastatin Calcium (Lipitor) 40 mg DAILY PO 10/25/20 09:00 10/27/20 08:48 Bacitracin/ Polymyxin B Sulfate (Polysporin Top Oint) 1 dose BID TOP 10/12/20 09:00 10/13/20 15:39 DC 10/13/20 09:04 Bacitracin/ Polymyxin B Sulfate (Polysporin Top Oint) 1 dose BID@0900,1930 TOP 10/13/20 19:30 10/25/20 13:56 DC 10/24/20 20:17 Bisacodyl (Dulcolax Suppository) 10 mg DAILYPRN PRN [place] CONSTIPATION 10/07/20 14:45 Budesonide (Pulmicort Flexhaler) 2 puff RBID INH 10/12/20 08:00 10/26/20 20:02 Cetylpyridinium Chloride (Cepacol) 1 desi Q2HP PRN PO COUGH 10/20/20 16:15 10/25/20 17:50 Clopidogrel Bisulfate (PLAVix) 75 mg DAILY PO 10/08/20 09:00 10/27/20 08:48 Dextrose (Dextrose 50%) 25 ml ASDIRECTED PRN IV SEE LABEL COMMENTS 10/07/20 14:45 Docusate Sodium (Colace) 100 mg BID PO 10/07/20 21:00 10/13/20 15:45 DC 10/12/20 22:06 Docusate Sodium (Colace) 100 mg BID@0900,1930 PO 10/13/20 19:30 10/27/20 08:48 Duloxetine HCl (Cymbalta) 60 mg DAILY PO 10/08/20 09:00 10/27/20 08:48 Emollient Cream (Vanicream) APPLY TO ARMS AND LEGS BID TOP 10/18/20 09:00 10/27/20 08:53 Fluticasone Propionate (Flonase 0.05% Nasal [place]) 1 spray BID NARES 10/07/20 21:45 10/13/20 15:40 DC 10/13/20 09:04 Fluticasone Propionate (Flonase 0.05% Nasal [place]) 1 spray BID@0900,1930 NARES 10/13/20 19:30 10/27/20 08:53 Furosemide (Lasix) 20 mg BID@0730,1730 PO 10/17/20 17:30 10/24/20 15:26 DC 10/24/20 07:37 Furosemide (Lasix) 20 mg DAILY PO 10/12/20 09:00 10/17/20 11:45 DC 10/17/20 08:22 Gabapentin (Neurontin) 100 mg DAILY PO 10/08/20 09:00 10/27/20 08:49 Glipizide (Glucotrol) 2.5 mg DAILY@0730 PO 10/27/20 11:00 10/27/20 09:42 DC Glucagon (Glucagon) 1 mg ASDIRECTED PRN SC SEE LABEL COMMENTS 10/07/20 14:45 Glucose (Glucose) 16 GM ASDIRECTED PRN PO SEE LABEL COMMENTS 10/07/20 14:45 Guaifenesin (Robitussin Tab) 400 mg TID PO 10/07/20 21:45 10/13/20 15:46 DC 10/13/20 08:38 Guaifenesin (Robitussin Tab) 400 mg TID@0900,1600,1930 PO 10/13/20 16:00 10/25/20 13:56 DC 10/24/20 20:14 Guaifenesin (Robitussin) 10 ml Q4HP PRN PO COUGH 10/14/20 18:00 Heparin Sodium (Porcine) (Heparin) 5,000 units Q12H SC 10/07/20 21:00 10/13/20 15:48 DC 10/13/20 08:40 Heparin Sodium (Porcine) (Heparin) 5,000 units Q12H SC 10/13/20 19:30 10/18/20 11:03 DC 10/18/20 07:50 Home Med (Med Rec Complete!) ASDIRECTED XX 10/07/20 18:30 10/07/20 18:25 DC Hydralazine HCl (Apresoline) 25 mg Q6H PO 10/14/20 12:00 10/27/20 05:46 Insulin Detemir (Levemir Insulin) 5 units DAILY SC 10/14/20 11:15 10/27/20 09:34 DC 10/27/20 08:48 Insulin Detemir (Levemir Insulin) 5 units QHS SC 10/08/20 21:00 10/10/20 10:47 DC 10/09/20 20:57 Insulin Detemir (Levemir Insulin) 10 units QHS SC 10/10/20 21:00 10/13/20 09:38 DC 10/12/20 22:05 Insulin Detemir (Levemir Insulin) 14 units QHS SC 10/13/20 21:00 10/27/20 09:34 DC 10/26/20 20:16 Insulin Human Lispro (HumaLOG INSULIN) SEE PROTOCOL TABLE AC SC 10/07/20 17:30 10/27/20 08:48 Insulin Human Lispro (HumaLOG INSULIN) SEE PROTOCOL TABLE DAILY@1930 SC 10/13/20 19:30 10/23/20 19:40 Insulin Human Lispro (HumaLOG INSULIN) SEE PROTOCOL TABLE QHS SC 10/07/20 21:00 10/13/20 15:53 DC 10/12/20 22:06 Lactobacillus Acidophilus (Bacid) 1 ea WMHS PO 10/17/20 12:30 10/27/20 08:49 Levofloxacin (Levaquin) 750 mg Q48H PO 10/21/20 06:00 10/23/20 06:01 DC 10/23/20 05:30 Levothyroxine Sodium (Synthroid) 125 mcg DAILY@06 PO 10/08/20 06:00 10/27/20 05:46 Lidocaine (Lidoderm Patch) 1 patch DAILY TD 10/19/20 09:00 10/25/20 13:56 DC 10/24/20 07:39 Lidocaine (Lidoderm Patch) 1 patch DAILY@1930 TD 10/13/20 19:30 10/25/20 13:56 DC 10/24/20 20:16 Lidocaine (Lidoderm Patch) 1 patch QHS TD 10/07/20 21:00 10/13/20 15:43 DC 10/12/20 22:05 Loratadine (Claritin) 10 mg DAILY PO 10/08/20 11:15 10/27/20 08:49 Losartan Potassium (Cozaar) 25 mg DAILY PO 10/08/20 09:00 10/14/20 15:39 DC 10/14/20 08:49 Meropenem 1 gm/IV Miscellaneous Supplies 50 ml @ 100 mls/hr Q12H IV 10/14/20 13:00 10/21/20 07:41 DC 10/21/20 00:50 Meropenem 2 gm/ Sodium Chloride 100 ml @ 200 mls/hr Q8H IV 10/14/20 12:00 10/14/20 12:32 DC Metoprolol Tartrate (Lopressor) 25 mg BID PO 10/24/20 21:00 10/26/20 20:06 Non-Formulary Medication ( See Comment Field Below ) REMOVE LIDODERM PATCH DAILY XX 10/08/20 09:00 10/13/20 15:44 DC 10/13/20 09:04 Non-Formulary Medication ( See Comment Field Below ) REMOVE LIDODERM PATCH DAILY@0730 XX 10/14/20 07:30 10/27/20 07:30 Non-Formulary Medication ( See Comment Field Below ) REMOVE LIDODERM PATCH DAILY@21 XX 10/19/20 21:00 10/24/20 20:19 Oxybutynin Chloride (Ditropan) 5 mg BID PO 10/19/20 21:00 10/27/20 08:48 Pantoprazole Sodium (Protonix) 40 mg DAILY PO 10/08/20 09:00 10/27/20 08:48 Ropinirole HCl (Requip) 1 mg DAILY@1930 PO 10/13/20 19:30 10/20/20 11:41 DC 10/19/20 20:11 Ropinirole HCl (Requip) 1 mg QHS PO 10/07/20 21:00 10/13/20 15:50 DC 10/12/20 22:06 Ropinirole HCl (Requip) 2 mg DAILY@1930 PO 10/20/20 19:30 10/26/20 20:07 Senna (Senokot) 1 tab DAILY@1930 PO 10/13/20 19:30 10/26/20 20:07 Senna (Senokot) 1 tab QHS PO 10/07/20 21:00 10/13/20 15:50 DC 10/12/20 22:07 Simvastatin (Zocor) 20 mg DAILY@1930 PO 10/13/20 19:30 10/25/20 08:20 DC 10/24/20 20:14 Simvastatin (Zocor) 20 mg QHS PO 10/07/20 21:00 10/13/20 15:52 DC 10/12/20 22:07 Sitagliptin Phosphate (Januvia) 25 mg DAILY PO 10/27/20 09:45 UNV Sodium Chloride ([place] [facility]al [place]) 2 spray TID NA 10/07/20 21:45 10/13/20 15:42 DC 10/13/20 09:04 Sodium Chloride ([place] Nasal [place]) 2 spray TID@0900,1600,1930 NA 10/13/20 16:00 10/27/20 08:53 Vancomycin HCl 500 mg/Dextrose 110 ml @ 110 mls/hr Q24H IV 10/15/20 17:00 10/17/20 13:02 DC 10/16/20 18:04 Vancomycin HCl 750 mg/IV Miscellaneous Supplies 1 each/ Dextrose 275 ml @ 275 mls/hr Q24H IV 10/15/20 16:00 10/17/20 13:02 DC 10/16/20 15:42 MAYI CLINTON MD Oct 27, 2020 09:52
[2020-10-27] MEDS ORDERED: PILL CUTTER 1 EACH XX PRN (10:00)
[2020-10-27] MEDS ORDERED: glipiZIDE *2.5MG* 1/2 TABLET PO SCH (11:00)
[2020-10-27] MEDS ORDERED: FLEET ENEMA PR ONE (11:00)
[2020-10-27] MEDS: SITagliptin 50 MG TAB (JANUVIA) PO SCH (11:22)
[2020-10-27 14:00] VITALS: BP 138/67
[2020-10-27] MEDS: rOPINIRole 1MG TAB PO SCH (19:43)
[2020-10-27] MEDS: SENNA 8.6 MG TAB (SENOKOT) PO SCH (19:43)
[2020-10-27] MEDS: ALPRAZolam 0.5 MG TAB PO PRN (19:46)
[2020-10-27 20:00] VITALS: BP 156/88
[2020-10-28] MEDS: **hydrALAZINE HCL** 25 MG TAB PO SCH ×3 (00:17→12:35)
[2020-10-28 06:00] VITALS: BP 139/62
[2020-10-28] MEDS: LEVOTHYROXINE 125MCG TABLET (0.125MG) PO SCH (06:24)
[2020-10-28] MEDS: BUDESONIDE 180MCG INHALER (PULMICORT FLEXHALER) INH SCH (07:17)
[2020-10-28] MEDS: **NOTE PATIENT COMMENT** MISC XX SCH (07:30)
[2020-10-28] MEDS: ATORVASTATIN 20 MG TAB PO SCH (08:35)
[2020-10-28] MEDS: ASPIRIN 81 MG ENTERIC TAB PO SCH (08:35)
[2020-10-28] MEDS: DOCUSATE SODIUM 100MG CAPSULE PO SCH (08:35)
[2020-10-28] MEDS: oxyBUTYnin 5 MG TAB PO SCH (08:35)
[2020-10-28] MEDS: HumaLOG INSULIN (NovoLOG) PER UNIT SC SCH ×2 (08:35→12:35)
[2020-10-28] MEDS: CLOPIDOGREL 75 MG TAB PO SCH (08:35)
[2020-10-28] MEDS: GABAPENTIN 100 MG CAP PO SCH (08:35)
[2020-10-28] MEDS: LACTOBACILLUS ACIDOPHILUS CAP (BACID) PO SCH ×2 (08:35→12:34)
[2020-10-28] MEDS: PANTOPRAZOLE 40MG TAB (PROTONIX) PO SCH (08:35)
[2020-10-28] MEDS: DULoxetine 30 MG CAP (CYMBALTA) PO SCH (08:36)
[2020-10-28] MEDS: SITagliptin 50 MG TAB (JANUVIA) PO SCH (08:36)
[2020-10-28] MEDS: LORATADINE 10 MG TAB PO SCH (08:36)
[2020-10-28] MEDS: METOPROLOL TART 25 MG TABLET PO SCH (08:37)
[2020-10-28] MEDS: FLUTICASONE PROP 0.05% NASAL SPRAY 16 GM (FLONASE) NARES SCH (08:41)
[2020-10-28] MEDS: SODIUM CHLORIDE NASAL 0.65% SPRAY BTL (OCEAN) SCH (08:41)
[2020-10-28] MEDS: REMEDY PHYTOPLEX Z-GUARD PASTE 113GM TUBE (FROM STOREROOM PRODUCT) TOP SCH (08:41)
[2020-10-28] MEDS: POLYVINYL ALCOHOL OPHTH SOLN 15 ML(LIQUITEARS) OU SCH ×2 (08:41→12:35)
[2020-10-28] MEDS: VANICREAM MOISTURIZING SKIN CREAM 113GM TUBE TOP SCH (08:42)
[2020-10-28] MEDS ORDERED: BUDE180INH INH (10:25)
--- NOTE | 2020-10-28 10:45 | PMRDS ---
NAME: DANIELA HOLLIDAY [facility] WT ID#: [id number] : [id number] JOB: [id number] CHAYO: 10/07/2020 ACCT: [id number] DOCTOR: MAYI CLINTON MD PMR DISCHARGE SUMMARY DATE OF ADMISSION: 10/07/2020 DATE OF DISCHARGE: 10/28/2020 CHIEF COMPLAINT/DISCHARGE DIAGNOSIS: Stroke. HISTORY OF PRESENT ILLNESS: A 79-year-old female with a past medical history of COPD on oxygen, hypertension, diabetes, hypothyroidism, GERALD, fibromyalgia, restless leg syndrome, bladder cancer, anxiety, who presented to [facility] ED on 10/01/2020 after developing left arm numbness and weakness. CTH did not show acute hemorrhage, however MRI of brain showed "right frontal and parietal lobes, consistent with acute infarcts. There is a tiny focus of diffusion hyperintensity within the left parietal subcortical white matter consistent with an acute or subacute infarct. Embolic disease is considered." Carotid ultrasounds were obtained showing severe stenosis of the right ICA for which she was maintained on aspirin and Plavix. In addition, discussions were had with in-house Vascular Surgery to perform a CEA which was postponed per patient's and son's request. She had hyperglycemia and elevated blood pressures with persistent left upper extremity weakness, was evaluated by therapy, found to have impairments in mobility and ADLs and deemed medically appropriate for discharge to ARU on 10/07/2020. PAST MEDICAL HISTORY: As per HPI. HOSPITAL COURSE: The patient was admitted and enrolled in a comprehensive PT/OT, Speech Language Pathology Program. She received 24 hour nursing supervision and weekly team meetings were held to discuss her progress. The patient was diagnosed with a left sided pneumonia confirmed by CT scan on 10/14/2020 with leukocytosis which improved with Vancomycin and IV Meropenem and eventually she was transitioned to Levofloxacin. The patient was started on a Budesonide inhaler in addition to her DuoNeb, Claritin, Flonase and Guaifenesin and her cough and nasal congestion improved. Heparin was discontinued for DVT prophylaxis due to increase in injection site bleeding, however she was maintained on aspirin and Plavix with serial Dopplers negative for DVT. She was also started on Oxybutynin for chronic urge incontinence for her overactive bladder with improvement. She was started on a low dose Lasix for fluid retention which was discontinued after her fluid retention improved. The patient had a Cardiology consultation in-house to clear her for her CEA surgery which was scheduled for 11/03/2020 after which it was decided that her CEA would be postponed for further outpatient workup with Dr. Zuniga. She was medically and functionally stable to return home after making improvements and having obtained room privileges prior to discharge. DISCHARGE MEDICATIONS: As per instructions. FUNCTIONAL HISTORY: On discharge the patient was modified independent for bed mobility, ambulation, dressing and toileting. Thank you for this referral.
[2020-10-28 12:35] VITALS: BP 148/82
[2020-10-28] MEDS ORDERED: HYDR25TA PO (12:44)
[2020-10-28] MEDS ORDERED: METO1TAB32 PO (12:44)
[2020-10-28 14:00] VITALS: BP 137/62
== END 2020-10-28 17:15 | disposition home health service (06) | DRG 57 ==
LOC: M ED INP 16:39 → M PM&R 17:01
PROVIDERS: ADMIT Physical Medicine & Rehabilitation; ATTEND Physical Medicine & Rehabilitation
DX: I69.354 Hemiplegia and hemiparesis following cerebral infarction affecting left non-dominant side (principal); I69.392 Facial weakness following cerebral infarction; J44.9 Chronic obstructive pulmonary disease, unspecified; I10 Essential (primary) hypertension; E11.9 Type 2 diabetes mellitus without complications; E89.0 Postprocedural hypothyroidism; G47.33 Obstructive sleep apnea (adult) (pediatric); M79.7 Fibromyalgia; G25.81 Restless legs syndrome; F41.9 Anxiety disorder, unspecified; Z85.51 Personal history of malignant neoplasm of bladder; Z99.81 Dependence on supplemental oxygen; I65.21 Occlusion and stenosis of right carotid artery; Z74.09 Other reduced mobility; Z74.1 Need for assistance with personal care; Z98.41 Cataract extraction status, right eye; Z98.42 Cataract extraction status, left eye; Z90.49 Acquired absence of other specified parts of digestive tract; E03.9 Hypothyroidism, unspecified; Z79.899 Other long term (current) drug therapy; Z79.82 Long term (current) use of aspirin; Z88.0 Allergy status to penicillin; Z88.2 Allergy status to sulfonamides; F17.210 Nicotine dependence, cigarettes, uncomplicated; I44.7 Left bundle-branch block, unspecified

== ENCOUNTER 2020-11-03 07:30 | Inpatient (IN) | payer MEDICARE, BC ==
--- NOTE | 2020-10-21 13:08 | HPEPDOC ---
[facility] Medical History & Physical Date of Admission Nov 03, 2020 Date of Service: Nov 03, 2020 History and Physical Vascular surgery. Dr. Servin HISTORY OF PRESENT ILLNESS: The patient is a 79-year-old female who we recently saw in the hospital after workup for a stroke that left her with some left-sided weakness. Her carotid duplex revealed greater than 70% right carotid stenosis, we suspect this may have been the etiology for her stroke. She has been started on best medical management with aspirin and Plavix and statin. Dr. Servin has spoken with the patient and her son about the procedure, perioperative expectations, recovery expectations, postoperative care, as well as the risks benefits and alternatives of surgery. Plan is to proceed with a right carotid endarterectomy 11/03/[address] Servin. PAST MEDICAL HISTORY: HTN HLD COPD on 2 L NC (not always compliant at home) GERALD Tobacco use Hx of Graves disease s/p radiation, now hypothyroid on synthroid Hx of bladder cancer Anxiety RLS DM type II Chronic pain Fibromyalgia Tobacco use PAST SURGICAL HISTORY: Neck/thyroid radiation treatments Cholecystectomy Bladder stent Back surgery Bilateral foot bunionectomy Right toe surgery Bilateral carpal tunnel surgery Bilateral cataract cystoscopy 10/14/19 SOCIAL HISTORY: Smoker for 64 years, FAMILY HISTORY: Hypertension ALLERGIES: Please see below. REVIEW OF SYSTEMS: As noted in HPI otherwise 10 point review of systems remarkable for recent CVA with residual weakness of the left arm. HOME MEDICATIONS: Please see below. PHYSICAL EXAMINATION: Const: Appears medically stable. No signs of apparent distress present. Head/Face: Normal on inspection. ENMT: Tympanic membranes: intact. External nose WNL. Neck: Supple, no left carotid bruits present, positive right carotid bruit Resp: No wheezing. Slightly coarse breath sounds bilaterally CV: Rate is regular. Rhythm is regular. Abdomen: Bowel sounds are positive. Obese. Abdomen is soft, nontender, and nond istended. Lymph: No palpable or visible regional lymphadenopathy. Musculo:Gait steady, distal pulses weakly palpable, strong Doppler signal DPPT. Skin:No rashes or lesions Neuro:Alert and oriented. Mild weakness noted left upper extremity compared to right upper extremity, bilateral lower extremity motor and sensory function intact. Psych: Pleasant and cooperative LABORATORY DATA: See below. IMAGING:Carotid duplex 10/01/20 The right ICA velocities is 319/167, ICA/CCA ratio is 4.32, which is greater than 70% stenosis, and the left internal carotid artery velocities are 167/53, and the ICA/CCA ratio is 2.15 which is just over 50% stenosis. The vertebral arteries are antegrade. ASSESSMENT/PLAN: The patient is a 79-year-old patient with symptomatic right carotid artery stenosis, left CVA with some residual left arm weakness, improving. Plan to proceed with right carotid endarterectomy as per Dr. Servin 11/03/20. Informed consent is obtained and placed with the chart. Transfusion consent is obtained and placed in the chart. Medical clearance requested. Cardiac clearance requested. Continue aspirin/Plavix. Patient is advised not to hold aspirin or Plavix prior to the surgery. Continue statin. The patient is allergic to penicillin, BMI 33.7, vancomycin 1.5 g IV preoperatively. IV fluids as per anesthesia Admission labs to include CBC, BMP, INR, PTT, type and screen. Vital Signs Admission vital signs pending. Laboratory Data Labs 24H Admission labs pending. Home Medications Scheduled Aspirin (Aspirin EC) 81 Mg Tablet.dr, 81 MG PO DAILY Clopidogrel Bisulfate (Clopidogrel) 75 Mg Tablet, 75 MG PO DAILY Duloxetine Hcl (Duloxetine HCl) 60 Mg Capsule.dr, 60 MG PO DAILY Gabapentin (Gabapentin) 100 Mg Capsule, 100 MG PO DAILY Levothyroxine Sodium (Synthroid) 125 Mcg Tablet, 125 MCG PO DAILY Losartan Potassium (Losartan Potassium) 25 Mg Tablet, 25 MG PO DAILY Lovastatin (Lovastatin) 10 Mg Tablet, 10 MG PO QPM Ropinirole HCl (Ropinirole HCl) 0.5 Mg Tablet, 1 MG PO QHS Scheduled PRN Alprazolam (Alprazolam) 1 Mg Tablet, 1 TAB PO BID PRN for ANXIETY Loperamide HCl (Loperamide) 2 Mg Capsule, 2 MG PO TIDP PRN for DIARRHEA Miscellaneous Medications [Comments] MED LIST MADE WITH HELP FROM [facility] AND A HEALTH CLINIC VISIT. HEALTH CLINIC VISIT HAS INSULIN BUT [facility] HAS NOT FILLED INSULIN IN MORE THAN A YEAR Allergies Coded Allergies: Penicillins (Verified Allergy, Unknown, 10/01/20) Sulfa (Sulfonamide Antibiotics) (Verified Adverse Reaction, Mild, mouth sores, 10/01/20) A-FIB/CHADSVASC A-FIB History Current/History of A-Fib/PAF?: No Elyssa Marrufo Oct 21, 2020 13:08
[~2020-11-03] VITALS: Ht 152.4 cm; Wt 95.8 kg
[~2020-11-03 07:30] MED LIST changes: +AMLO1TAB25 PO; +ASPI-569 PO; -ASPI81TAEC PO; +ATOR40TA75 PO; +BUDE180INH INH; +HYDR25TA PO; +JANU25TA PO; +METO1TAB32 PO; +OXYB5TAB10 PO; +RISATAB3 PO; +ROPI1TAB3 PO
[2020-12-09] MEDS ORDERED: FLON1SPR (08:58)
[2020-12-09] MEDS ORDERED: NOVO1INJ4 SC (08:58)
[2020-12-09] MEDS ORDERED: XANA1TAB2 PO (08:58)
--- NOTE | 2020-12-09 11:34 | HPEPDOC ---
[facility] Medical History & Physical Date of Admission Dec 23, 2020 Date of Service: Dec 23, 2020 History and Physical Vascular surgery. Dr. Servin HISTORY OF PRESENT ILLNESS: The patient is a 79-year-old female who we recently saw in the hospital after workup for a stroke that left her with some left-sided weakness. Her carotid duplex revealed greater than 70% right carotid stenosis, we suspect this may have been the etiology for her stroke. She has been started on best medical management with aspirin and Plavix and statin. Dr. Servin has spoken with the patient and her son about the procedure, perioperative expectations, recovery expectations, postoperative care, as well as the risks benefits and alternatives of surgery. Plan is to proceed with a right carotid endarterectomy 12/23/[address] Servin. PAST MEDICAL HISTORY: HTN HLD COPD on 2 L NC (not always compliant at home) GERALD Tobacco use Hx of Graves disease s/p radiation, now hypothyroid on synthroid Hx of bladder cancer Anxiety RLS DM type II Chronic pain Fibromyalgia Tobacco use PAST SURGICAL HISTORY: Neck/thyroid radiation treatments Cholecystectomy Bladder stent Back surgery Bilateral foot bunionectomy Right toe surgery Bilateral carpal tunnel surgery Bilateral cataract cystoscopy 10/14/19 SOCIAL HISTORY: Smoker for 64 years, FAMILY HISTORY: Hypertension ALLERGIES: Please see below. REVIEW OF SYSTEMS: As noted in HPI otherwise 10 point review of systems remarkable for recent CVA with residual weakness of the left arm. HOME MEDICATIONS: Please see below. PHYSICAL EXAMINATION: Const: Appears medically stable. No signs of apparent distress present. Head/Face: Normal on inspection. ENMT: Tympanic membranes: intact. External nose WNL. Neck: Supple, no left carotid bruits present, positive right carotid bruit Resp: No wheezing. Slightly coarse breath sounds bilaterally CV: Rate is regular. Rhythm is regular. Abdomen: Bowel sounds are positive. Obese. Abdomen is soft, nontender, and nondistended. Lymph: No palpable or visible regional lymphadenopathy. Musculo:Gait steady, distal pulses weakly palpable, strong Doppler signal DPPT. Skin:No rashes or lesions Neuro:Alert and oriented. Mild weakness noted left upper extremity compared to right upper extremity, bilateral lower extremity motor and sensory function intact. Psych: Pleasant and cooperative LABORATORY DATA: See below. IMAGING:Carotid duplex 10/01/20 The right ICA velocities is 319/167, ICA/CCA ratio is 4.32, which is greater than 70% stenosis, and the left internal carotid artery velocities are 167/53, and the ICA/CCA ratio is 2.15 which is just over 50% stenosis. The vertebral arteries are antegrade. ASSESSMENT/PLAN: The patient is a 79-year-old patient with symptomatic right carotid artery stenosis, left CVA with some residual left arm weakness, improving. Plan to proceed with right carotid endarterectomy as per Dr. Servin 12/23/20. Informed consent is obtained and placed with the chart. Transfusion consent is obtained and placed in the chart. Medical clearance requested. Cardiac clearance requested. Continue aspirin/Plavix. Patient is advised not to hold aspirin or Plavix prior to the surgery. Continue statin. The patient is allergic to penicillin, vancomycin IV preoperatively. IV fluids as per anesthesia Admission labs to include CBC, BMP, INR, PTT, type and screen. Vital Signs Admission vital signs pending. Laboratory Data Labs 24H Admission labs pending. Home Medications Scheduled Alprazolam (Xanax) 1 Mg Tablet, 1 MG PO QHS Amlodipine Besylate (Amlodipine Besylate) 10 Mg Tablet, 10 MG PO DAILY Aspirin (Aspirin EC) 81 Mg Tablet.dr, 81 MG PO DAILY Atorvastatin Calcium (Atorvastatin Calcium) 40 Mg Tablet, 40 MG PO QPM Budesonide (Pulmicort Flexhaler) 180 Mcg Aer.pow.ba, 2 PUFF INH RBID Clopidogrel Bisulfate (Clopidogrel) 75 Mg Tablet, 75 MG PO DAILY Duloxetine Hcl (Duloxetine HCl) 60 Mg Capsule.dr, 60 MG PO DAILY Fluticasone Propionate (Flonase Allergy Relief) 9.9 Ml [place].susp, 50 MCG NA BID Gabapentin (Gabapentin) 100 Mg Capsule, 100 MG PO DAILY Hydralazine HCl (Hydralazine HCl) 25 Mg Tablet, 25 MG PO BID Insulin NPH Hum/Reg Insulin Hm (Novolin 70-30 100 Unit/ml Vial) 100 Unit/1 Ml Vial, 40 UNITS SC BID Levothyroxine Sodium (Synthroid) 125 Mcg Tablet, 125 MCG PO DAILY Metoprolol Succinate (Metoprolol Succinate) 25 Mg Tab.er.24h, 1 TAB PO DAILY Oxybutynin Chloride (Oxybutynin Chloride) 5 Mg Tablet, 5 MG PO BID Ropinirole HCl (Ropinirole HCl) 1 Mg Tablet, 2 MG PO DAILY@1930 Allergies Coded Allergies: Penicillins (Verified Allergy, Intermediate, rash, 12/09/20) Tetracyclines (Verified Allergy, Intermediate, rash, 12/09/20) Sulfa (Sulfonamide Antibiotics) (Verified Adverse Reaction, Mild, mouth sores, 12/09/20) A-FIB/CHADSVASC A-FIB History Current/History of A-Fib/PAF?: No Elyssa Marrufo Dec 09, 2020 11:34
[2020-12-09] MEDS ORDERED: CHLO125TA PO (12:40)
[2020-12-09] MEDS ORDERED: TOPR25TA PO (16:46)
[2020-12-09] MEDS ORDERED: ROPI1TAB3 PO (16:48)
[2020-12-09] MEDS ORDERED: LOSA25TA14 PO (16:50)
[2020-12-20] MEDS ORDERED: DULO1CAP6 PO (00:33)
[2020-12-20] MEDS ORDERED: PULM90IN INH (00:33)
[2020-12-20] MEDS ORDERED: CLOP75TA2 PO (00:33)
[2020-12-20] MEDS ORDERED: ATOR40TA75 PO (00:33)
[2020-12-20] MEDS ORDERED: OXYB5TAB10 PO (00:33)
[2020-12-20] MEDS ORDERED: LEVO125T4 PO (00:33)
[2020-12-20] MEDS ORDERED: GABA-1171 PO (00:33)
[2020-12-20] MEDS ORDERED: ASPI81TA26 PO (00:33)
[2020-12-23] VITALS (13 sets, daily range): BP systolic 117–168; BP diastolic 49–94; O2SAT 94
[2020-12-23] MEDS ORDERED: VANCOMYCIN 1000MG/20ML VIAL As Ordered ONE (06:47)
[2020-12-23] MEDS ORDERED: LR 1,000 ML IV ONE (07:00)
[2020-12-23] MEDS ORDERED: VANCOMYCIN HCL 1,000 MG, VIAL MATE ADAPTER 1 EACH in NS 250 ML IV ONE (07:00)
[2020-12-23 07:09] LABS: HEMATOCRIT 39.7 % (36.0-47.0); HEMOGLOBIN 11.9 g/dl (12.0-15.5); MEAN CORPUSCULAR HEMOGLOBIN 28.1 pg (27.0-33.0); MEAN CORPUSCULAR VOLUME 93.6 fl (80.0-96.0); PLATELET COUNT, AUTOMATED 203 10^3/uL (150-450); RED BLOOD COUNT 4.24 10^6/uL (4.00-5.40); WHITE BLOOD COUNT 9.7 10^3/uL (4.0-10.0)
[2020-12-23] MEDS ORDERED: dexameTHASONE 4 MG/ML 1ML VIAL (J1100 PER 1MG) As Ordered ONE (07:09)
[2020-12-23] MEDS ORDERED: ATROPINE SULF 0.4 MG/ML 1ML VIAL (J0461) As Ordered ONE (07:09)
[2020-12-23] MEDS ORDERED: fentaNYL 100 MCG/2 ML INJECTION (J3010) As Ordered ONE ×2 (07:09→10:03)
[2020-12-23] MEDS ORDERED: ROCURONIUM BROMIDE 50 MG/5 ML VIAL As Ordered ONE (07:09)
[2020-12-23] MEDS ORDERED: GLYCOPYRROLATE INJ 0.2 MG/ML 2 ML VIAL As Ordered ONE (07:09)
[2020-12-23] MEDS ORDERED: propofoL 200 MG/20 ML VIAL As Ordered ONE ×2 (07:09→07:10)
[2020-12-23] MEDS ORDERED: ONDANSETRON 4MG/2ML VIAL As Ordered ONE (07:09)
[2020-12-23] MEDS ORDERED: ESMOLOL INJ 100MG/10ML VIAL As Ordered ONE (07:09)
[2020-12-23] MEDS ORDERED: LIDOCAINE 2% 100MG/5ML SDV (FOR ANES.) As Ordered ONE (07:09)
[2020-12-23] MEDS ORDERED: LACRILUBE (AKWA TEARS) OPHTH OINT 3.5 GM As Ordered ONE (07:10)
[2020-12-23] MEDS ORDERED: ePHEDrine SULFATE 25 MG/5 ML(5MG/ML) SYRINGE As Ordered ONE ×3 (07:10→10:10)
[2020-12-23] MEDS ORDERED: PHENYLephrine 500MCG 5ML (100MCG/ML) SYRINGE As Ordered ONE (07:10)
[2020-12-23] MEDS ORDERED: MIDAZOLAM INJ 2MG/2ML VIAL (J2250 PER 1MG) As Ordered ONE (07:10)
[2020-12-23] MEDS ORDERED: BUPIVACAINE/EPIN 0.25% 30 ML VIAL As Ordered ONE (07:15)
[2020-12-23] MEDS ORDERED: THROMBIN SOLN 20,000 UNITS KIT As Ordered ONE (07:15)
[2020-12-23] MEDS ORDERED: LIDOCAINE 1% SDV 30ML VIAL As Ordered ONE (07:15)
[2020-12-23] MEDS ORDERED: HEPARIN SOD (PORCINE) 5000UNITS/ML 1ML VIAL/SYRINGE As Ordered ONE ×2 (07:16→09:42)
[2020-12-23] MEDS ORDERED: PHENYLEPHRINE 10MG/ML 1ML VIAL (J2370 PER 1) As Ordered ONE (07:22)
[2020-12-23 07:28] LABS: CALCIUM LEVEL 8.9 MG/DL (8.8-10.2); CREATININE FOR GFR 1.11 MG/DL (0.55-1.30); GLOMERULAR FILTRATION RATE 50.5 (>39); POTASSIUM SERUM 4.1 MEQ/L (3.5-5.1)
[2020-12-23 07:38] LABS: INR 0.96
[2020-12-23] MEDS ORDERED: ACETAMINOPHEN 1000MG 100ML IV BTL (OFIRMEV) (J0131 PER 10MG) As Ordered ONE (09:53)
[2020-12-23] MEDS ORDERED: SUGAMMADEX SODIUM 500 MG/5 ML VIAL (BRIDION) As Ordered ONE (10:16)
[2020-12-23] MEDS: LABETALOL 100MG/20ML VIAL IV PRN ×7 (10:58→23:49)
[2020-12-23] MEDS ORDERED: fentaNYL 100 MCG/2 ML INJECTION (J3010) IV PRN (11:00)
[2020-12-23] MEDS ORDERED: ONDANSETRON 4MG/2ML VIAL IV PRN ×2 (11:00→11:10)
[2020-12-23] MEDS ORDERED: LR 1,000 ML IV SCH (11:00)
--- NOTE | 2020-12-23 11:24 | ROOPDOC ---
[facility] Report Of Operation Report of Operation DATE OF PROCEDURE: 12/23/20 PREPROCEDURE DIAGNOSES: Symptomatic right carotid stenosis POSTPROCEDURE DIAGNOSES: Same PROCEDURE: Right carotid endarterectomy with xenosure patch angioplasty SURGEON: Rosemary Servin MD ANESTHESIA: General and local anesthesia INDICATION FOR PROCEDURE: Is a very pleasant 80-year-old patient with a history of symptomatic right carotid stenosis with residual left arm and left leg weakness, improved dysphasia, who returns for right carotid endarterectomy. Risks benefits and alternatives were explained to the patient and her family extensively over the past months. They've been extensively counseled about the risks of surgery, including the possibility of exacerbation of her existing neurologic deficits after endarterectomy. Usually, if this occurs, it is transient, but we will watch her very closely. After extensive counseling informed consent was obtained. REPORT OF OPERATION: Patient was brought to the operating room in stable condition. Anesthesia and antibiotics were administered without complication. Her right neck and chest were prepped and draped in a sterile fashion. A timeout was performed. Local anesthesia was administered to the skin and subcutaneous tissue over the anterior border of the sternocleidomastoid. An oblique incision was made along the anterior border of the right sternocleidomastoid and this was carried down through the subcutaneous tissue and platysma with Bovie cautery. We continued the dissection along the anterior border of the sternocleidomastoid down to the jugular vein. Bridging veins over the carotid artery were suture ligated and divided. We dissected down to the common carotid artery which was skeletonized proximally and distally. A vessel loop was placed. We dissected up to the external carotid artery and superior thyroid artery and vessels were placed around both after skeletonizing. 5000 units of heparin was given by anesthesia and allowed to circulate. We continued or dissection onto the internal carotid artery and a vessel loop was placed distal to the palpable plaque. We then secured the Vesseloops, and the blood pressure was maintained between 140 and 160 mmHg. An arteriotomy was made on the common carotid artery and extended longitudinally onto the internal carotid artery. Shunt was placed into the internal carotid artery in the Vesseloops was resecured. Good backbleeding was noted. We then placed the proximal end of the shunt to the common carotid artery and a vessel loop was resecured. Doppler was used to confirm there was flow through the shunt. We then performed the endarterectomy in the plaque was sent for pathology. Care was taken to remove all loose intima and debris. The bulb was irrigated with heparinized saline. A xenosure patch was used to close the arteriotomy with running 5-0 Prolene hemostatic suture. Before the final sutures are placed, we removed the shunt from the internal carotid artery and flushed and irrigated with Saline, then removed the shunt from the common carotid artery and flushed and irrigated with Saline, and flushed the external carotid artery. The final sutures are placed, and good hemostasis was noted. Flow was restored through the external carotid artery and superior thyroid artery, then the common carotid artery, and last the internal carotid artery. The blood pressure was then maintained less than 150 mmHg. We irrigated with saline. A ROMERO drain was placed and sutured at the skin on the right neck with a nylon suture. This was placed to bulb suction. We approximated the deep soft tissue with a few interrupted Vicryl sutures. The platysmal layer was closed with a running 2-0 Vicryl suture. The deep dermal layer was approximated with interrupted 4-0 Vicryl sutures. The skin was closed with a running 4-0 subcuticular Monocryl suture. Mastisol and Steri-Strips were placed the length of the incision after cleaning thoroughly. A drain sponge was placed at the ROMERO drain. A 4 x 4 and Tegaderm were placed over the Steri-Strips at the carotid i ncision. The patient was then allowed to awaken from anesthesia. Before extubated, she moved her left hand left foot and opened her eyes to command. All surgical counts were correct at the end of the case. She was then extubated and taken to recovery in stable condition. ESTIMATED BLOOD LOSS: Approximately 25 mL. PATHOLOGY: Right carotid plaque COMPLICATIONS: none PLAN: Patient will be admitted to the hospitalist service, ICU. We will maintain her blood pressure less than 150 mmHg, heart rate less than 80. Analgesia when necessary. Okay for out of bed with assist if desired for meals, and tomorrow, after the arterial line and ROMERO drain are discontinued, we will try to ambulate the patient with physical therapy. She has baseline left-sided weakness follow ing her stroke a few months ago, so we will keep this in mind with her activity levels. We will follow her neurologic exam, monitor her drain output. We appreciate the opportunity to participate in the care of this patient. ROSEMARY SERVIN MD Dec 23, 2020 11:24
[2020-12-23] MEDS ORDERED: GLUCAGON INJ 1MG VIAL SC PRN (11:40)
[2020-12-23] MEDS ORDERED: GLUCOSE 4GM CHEW TABLET PO PRN (11:40)
[2020-12-23] MEDS ORDERED: DEXTROSE 50% 50 ML SYRINGE IV PRN (11:40)
[2020-12-23] MEDS ORDERED: CHLORASEPTIC SPRAY MT PRN (12:00)
[2020-12-23] MEDS: BUDESONIDE 180MCG INHALER (PULMICORT FLEXHALER) INH SCH ×2 (13:09→19:39)
[2020-12-23] MEDS: HumaLOG INSULIN (NovoLOG) PER UNIT SC SCH ×3 (13:35→21:02)
--- NOTE | 2020-12-23 15:53 | HPEPDOC ---
General Date of Admission Dec 23, 2020 at 06:00 Date of Service: Dec 23, 2020 Chief Complaint The patient is a 80-year-old female admitted with a reason for visit of Carotid Stenosis, Symptomatic. Source: Patient, RN/MD History of Present Illness Mrs. Saxena is a 80 year old female with hypertension, hyperlipidemia, DM type 2 and recent CVA on in September and November of 2020 who is here for right carotid endarterectomy. She came to the ED on December 20, 2020 for multiple e pisodes of dizziness with falls. Discussion was held the following day for STR, but patient wanted to go home to have surgery on December 23, 2020. She was discharged home. She did okay at home and she came back on December 23, 2020 for the right endarterectomy by vascular surgery. The surgery went well. I saw her in the ICU. She denies any chest pain, dyspnea, abdominal pain, or dysuria. She does have left arm and leg weakness and left facial droop. Patient will continued to be monitored in the ICU for strict blood pressure and heart rate monitoring. Home Medications Scheduled Alprazolam (Xanax) 1 Mg Tablet, 1 MG PO QHS, (Reported) Aspirin (Aspirin EC) 81 Mg Tablet.dr, 81 MG PO DAILY, (Reported) Atorvastatin Calcium (Atorvastatin Calcium) 40 Mg Tablet, 40 MG PO QHS, (Reported) Budesonide (Pulmicort Flexhaler) 90 Mcg Aer.pow.ba, 2 PUFFS INH BID, (Reported) Clopidogrel Bisulfate (Clopidogrel) 75 Mg Tablet, 75 MG PO DAILY, (Reported) Duloxetine Hcl (Duloxetine HCl) 60 Mg Capsule.dr, 60 MG PO DAILY, (Reported) Fluticasone Propionate (Flonase Allergy Relief) 9.9 Ml [place].susp, 50 MCG NA BID, (Reported) Gabapentin (Gabapentin) 100 Mg Capsule, 100 MG PO DAILY, (Reported) Insulin NPH Hum/Reg Insulin Hm (Novolin 70-30 100 Unit/ml Vial) 100 Unit/1 Ml Vial, 40 UNITS SC BID, (Reported) Levothyroxine Sodium (Levothyroxine Sodium) 125 Mcg Tablet, 125 MCG PO DAILY, (Reported) Metoprolol Succinate (Toprol Xl) 25 Mg Tab.er.24h, 25 MG PO DAILY, (Reported) Oxybutynin Chloride (Oxybutynin Chloride) 5 Mg Tablet, 5 MG PO BID, (Reported) Ropinirole HCl (Ropinirole HCl) 1 Mg Tablet, 1 MG PO QHS, (Reported) Allergies Coded Allergies: Penicillins (Verified Allergy, Intermediate, rash, 12/09/20) Tetracyclines (Verified Allergy, Intermediate, rash, 12/09/20) Sulfa (Sulfonamide Antibiotics) (Verified Adverse Reaction, Mild, mouth sores, 12/09/20) Past Medical History Medical History 1. Hypertension 2. Hyperlipidemia 3. COPD on 2 L NC 4. GERALD 5. Hypothyroidism 2/2 radiation for Graves disease 6. Hx of bladder cancer 7. Anxiety 8. RLS 9. DM type II 10. Chronic pain 11. Fibromyalgia Surgical History 1. Neck/thyroid radiation treatments 2. Cholecystectomy 3. Bladder stent 4. Back surgery 5. Bilateral foot bunionectomy 6. Right toe surgery 7. Bilateral carpal tunnel surgery 8. Bilateral cataract 9. cystoscopy 10/14/19 Family History Family history of hypertension Social History * Smoker: current smoker Alcohol: Denies Drugs: denies A-FIB/CHADSVASC A-FIB History Current/History of A-Fib/PAF?: No Review of Systems Constitutional: Denies: Chills, Fever Eyes: Denies: Vision change ENT: Reports: Sore Throat Skin: Denies: Rash Pulmonary: Denies: Dyspnea Cardiovascular: Denies: Chest Pain Gastrointestinal: Denies: Nausea, Abdominal Pain Genitourinary: Denies: Dysuria Hematologic: Denies: Bruising Neurological: Denies: Numbness Psych: Denies: Anxiety, Depression Physical Examination General Exam: Positive: Alert, Cooperative Eye Exam: Positive: EOMI; Negative: Sclera icteric ENT Exam: Positive: Atraumatic Neck Exam: Positive: Other (Right neck has gauze where surgery was performed) Chest Exam: Positive: Clear to auscultation; Negative: Rales, Rhonchi, Wheezing Heart Exam: Positive: Rate Normal, Regular Rhythm Abdomen Exam: Positive: BS Hypoactive, Soft; Negative: Tenderness Extremity Exam: Negative: Edema Neuro Exam: Positive: Other (Left arm and left leg is weaker than right. Also left facial droop) Psych Exam: Positive: Mental status NL, Mood NL Vital Signs Vital Signs Date Time Temp Pulse Resp B/P (MAP) Pulse Ox O2 Delivery O2 Flow Rate FiO2 12/23/20 14:00 76 20 135/88 (103) 93 Nasal Cannula 2.0 151/61 12/23/20 12:00 97.5 Laboratory Data Labs 24H Laboratory Tests 2 12/23/20 06:46: Nucleated Red Blood Cells % (auto) 0.0, Anion Gap 1L, Glomerular Filtration Rate 50.5, Calcium Level 8.9 12/23/20 06:53: Prothrombin Time 13.0, Prothromb Time International Ratio 0.96, Activated Partial Thromboplast Time 20.0L 12/23/20 07:14: Bedside Glucose (Misc Panel) 116H 12/23/20 10:56: Bedside Glucose (Misc Panel) 182H 12/23/20 13:18: Bedside Glucose (Misc Panel) 226H CBC/BMP Laboratory Tests 12/23/20 06:46 Assessment/Plan Mrs. Saxena is a 80 year old female with hypertension, hyperlipidemia, DM type 2 and recent CVA on in September and November of 2020 who is here for right car otid endarterectomy by Dr. Servin on 12/23/2020. Surgery has gone well. She is in the ICU for arterial line for strict blood pressure and heart rate monitoring Plan / VTE VTE Prophylaxis Ordered?: Yes Plan Plan 1. Right carotid artery stenosis s/p right endarterectomy -Performed by Dr. Servin on 12/23/2020 -Blood pressure and heart rate goals per vascular surgery, On labetalol and hydralazine -Continue DAPT and statin. No chemical DVT ppx at this time 2. Diabetes mellitus type 2 -Carbohydrate consistent diet -Sliding scale insulin 3. Hypothyroidism -Continue levothyroxin 4. RLS -Continue ropinirole 5. COPD -Continue with 2L of oxygen -Continue with inhalers 6. DVT ppx -SCD and TEDs LAURY CAREY DO Dec 23, 2020 15:53
[2020-12-23] MEDS ORDERED: IPRATROPIUM 0.5MG/ALBUTEROL 2.5MG INH SOL UD 3ML (DUONEB) NEB PRN (15:55)
[2020-12-23] MEDS ORDERED: LABETALOL 100MG/20ML VIAL ONE (16:20)
[2020-12-23] MEDS: ATORVASTATIN 20 MG TAB PO SCH (20:18)
[2020-12-23] MEDS: rOPINIRole 1MG TAB PO SCH (20:19)
[2020-12-23] MEDS: oxyBUTYnin 5 MG TAB PO SCH (20:19)
[2020-12-23] MEDS: FLUTICASONE PROP 0.05% NASAL SPRAY 16 GM (FLONASE) SCH (20:19)
[2020-12-23] MEDS: ALPRAZolam 0.5 MG TAB PO PRN (20:24)
[2020-12-23] MEDS: hydrALAZINE 20MG/ML 1ML VIAL (J0360 PER 20MG) IV PRN ×2 (21:51→22:14)
[2020-12-24] VITALS (18 sets, daily range): BP systolic 112–188; BP diastolic 42–75; O2SAT 93
[2020-12-24] MEDS: LABETALOL 100MG/20ML VIAL IV PRN ×4 (00:55→06:57)
[2020-12-24] MEDS: hydrALAZINE 20MG/ML 1ML VIAL (J0360 PER 20MG) IV PRN ×6 (01:51→06:18)
[2020-12-24] MEDS ORDERED: MORPHINE 2 MG/ML 1ML VIAL (J2270) IV ONE (02:45)
[2020-12-24 04:58] LABS: HEMOGLOBIN 10.7 g/dl (12.0-15.5); MEAN CORPUSCULAR HEMOGLOBIN 27.8 pg (27.0-33.0); MEAN CORPUSCULAR HGB CONC 29.7 g/dl (32.0-36.5); MEAN CORPUSCULAR VOLUME 93.5 fl (80.0-96.0); PLATELET COUNT, AUTOMATED 199 10^3/uL (150-450); RED BLOOD COUNT 3.85 10^6/uL (4.00-5.40); WHITE BLOOD COUNT 11.2 10^3/uL (4.0-10.0)
[2020-12-24] MEDS ORDERED: ACETAMINOPHEN TAB 650MG DOSE (2X325MG) PO ONE (05:20)
[2020-12-24 05:24] LABS: CALCIUM LEVEL 8.4 MG/DL (8.8-10.2); CREATININE FOR GFR 1.21 MG/DL (0.55-1.30); GLOMERULAR FILTRATION RATE 45.7 (>39); POTASSIUM SERUM 4.7 MEQ/L (3.5-5.1)
[2020-12-24] MEDS: LEVOTHYROXINE 125MCG TABLET (0.125MG) PO SCH (06:18)
[2020-12-24] MEDS ORDERED: METOPROLOL SUCC *XL* 25MG TAB (TopROL *XL*) PO ONE (06:45)
[2020-12-24] MEDS: PERCOCET 5MG/325MG TAB PO PRN ×3 (06:56→20:53)
[2020-12-24] MEDS: HumaLOG INSULIN (NovoLOG) PER UNIT SC SCH ×4 (07:47→20:52)
[2020-12-24] MEDS: BUDESONIDE 180MCG INHALER (PULMICORT FLEXHALER) INH SCH ×2 (07:54→20:38)
[2020-12-24] MEDS: FLUTICASONE PROP 0.05% NASAL SPRAY 16 GM (FLONASE) SCH ×2 (09:00→20:53)
[2020-12-24] MEDS: CLOPIDOGREL 75 MG TAB PO SCH (09:40)
[2020-12-24] MEDS: ASPIRIN 81MG ENTERIC TABLET PO SCH (09:40)
[2020-12-24] MEDS: DULoxetine 30 MG CAP (CYMBALTA) PO SCH (09:40)
[2020-12-24] MEDS: GABAPENTIN 100 MG CAP PO SCH (09:40)
[2020-12-24] MEDS: oxyBUTYnin 5 MG TAB PO SCH ×2 (09:44→20:53)
--- NOTE | 2020-12-24 12:34 | IPNPDOC ---
Date Seen The patient was seen on 12/24/20. Progress Note Patient seen and examined postop day 1 status post right carotid endarterectomy. She's doing very well. I have restarted her long-acting metoprolol and this has given her better blood pressure control. I also added some pain medicine, and she is resting comfortably. We discontinued her ROMERO drain today, there was minimal output. She tolerated this well. We will also have the nurses discontinue her arterial line now that her blood pressure is stable in the goal range less than 150 mmHg. The patient worked with physical therapy today. I spoke with the physical therapist, and she thinks the patient would benefit from a few days of rehabilitation, but is unclear if this would be an ARU our inp atient need. We will defer this decision to the physical therapy and hospitalist teams. On exam, the right neck incision is clean dry and intact with Steri-Strips intact. A ROMERO drain was removed and no significant drainage was noted. The open area was cleaned and Steri-Strips were placed with a 2 x 2 and paper tape. Patient tolerated this well. Her speech and motor function/sensory function are at baseline. She is eating well and having no difficulty with speech or mastication today. Her left upper extremity and left lower extremity are still a little weak compared to the right, but overall are doing very well. I did not see her ambulate today, but physical therapy said she did ambulate a short distance. This is great. No focal neurologic deficits noted on exam. She is alert and oriented and appropriate. No complaints of vision changes either. Our plan will be for the patient to continue with supportive care post endarterectomy. From a vascular standpoint, it is okay to transfer to the floor from the ICU if she is not being discharged. From a vascular standpoint is okay to discharge home or to rehabilitation when the patient is cleared from a hospitalist and physical therapy perspective. We appreciate the opportunity to participate in the care of this patient. VS, I&O, 24H, Fishbone Vital Signs/I&O Vital Signs Date Time Temp Pulse Resp B/P (MAP) Pulse Ox O2 Delivery O2 Flow Rate FiO2 12/24/20 11:25 98.2 81 20 126/60 95 Nasal Cannula 2.0 I&O- Last 24 Hours up to 6 AM 12/24/20 06:00 Intake Total 2600 ml Output Total 255 ml Balance 2345 ml Laboratory Data 24H LABS Laboratory Tests 2 12/23/20 13:18: Bedside Glucose (Misc Panel) 226H 12/23/20 17:40: Bedside Glucose (Misc Panel) 361H 12/23/20 20:59: Bedside Glucose (Misc Panel) 364H 12/24/20 04:45: Nucleated Red Blood Cells % (auto) 0.0, Anion Gap 4L, Glomerular Filtration Rate 45.7, Calcium Level 8.4L 12/24/20 07:42: Bedside Glucose (Misc Panel) 337H 12/24/20 11:00: Bedside Glucose (Misc Panel) 294H CBC/BMP Laboratory Tests 12/24/20 04:45 ROSEMARY TAPIA MD Dec 24, 2020 12:34
--- NOTE | 2020-12-24 13:06 | IPNPDOC ---
Subjective Date Seen The patient was seen on 12/24/20. Subjective Chief Complaint/HPI Mrs. Saxena is a 80 year old female with hypertension, hyperlipidemia, DM type 2 and recent CVA on in September and November of 2020 who is here for right carotid endarterectomy. She did well overnight. This morning, denies any chest pain or dyspnea. Left arm and leg are slightly weaker than right. Vascular surgery evaluated patient today and removed ROMERO drain and arterial line. Patient will need to work more with physical therapy to determine disposition. Patient may need rehab. Objective Physical Examination General Exam: Positive: Alert, Cooperative Eye Exam: Positive: EOMI; Negative: Sclera icteric ENT Exam: Positive: Atraumatic Neck Exam: Positive: Other (Right neck has gauze where surgery was performed) Chest Exam: Positive: Clear to auscultation; Negative: Rales, Rhonchi, Wheezing Heart Exam: Positive: Rate Normal, Regular Rhythm Abdomen Exam: Positive: BS Hypoactive, Soft; Negative: Tenderness Extremity Exam: Negative: Edema Neuro Exam: Positive: Other (Left arm and left leg is weaker than right. ) Psych Exam: Positive: Mental status NL, Mood NL Assessment /Plan Assessment Mrs. Saxena is a 80 year old female with hypertension, hyperlipidemia, DM type 2 and recent CVA on in September and November of 2020 who is here for right carotid endarterectomy by Dr. Servin on 12/23/2020. Surgery has gone well and patient did well overnight in ICU. Patient will need to work more with physical therapy to determine disposition. May need rehab. Plan/VTE VTE Prophylaxis Ordered?: Yes Plan 1. Right carotid artery stenosis s/p right endarterectomy -Performed by Dr. Servin on 12/23/2020 -Blood pressure and heart rate goals per vascular surgery, On labetalol and hydralazine -Continue DAPT and statin. No chemical DVT ppx at this time 2. Diabetes mellitus type 2 -Carbohydrate consistent diet -Sliding scale insulin 3. Hypothyroidism -Continue levothyroxin 4. RLS -Continue ropinirole 5. COPD -Continue with 2L of oxygen -Continue with inhalers 6. DVT ppx -SCD and TEDs Disposition: Patient may need rehab. Pending recommendations from physical therapy VS, I&O, 24H, Fishbone Vital Signs/I&O Vital Signs Date Time Temp Pulse Resp B/P (MAP) Pulse Ox O2 Delivery O2 Flow Rate FiO2 12/24/20 12:00 98.5 71 18 121/57 (82) 97 Nasal Cannula 2.0 149/48 I&O- Last 24 Hours up to 6 AM 12/24/20 06:00 Intake Total 2600 ml Output Total 255 ml Balance 2345 ml Laboratory Data 24H LABS Laboratory Tests 2 12/23/20 13:18: Bedside Glucose (Misc Panel) 226H 12/23/20 17:40: Bedside Glucose (Misc Panel) 361H 12/23/20 20:59: Bedside Glucose (Misc Panel) 364H 12/24/20 04:45: Nucleated Red Blood Cells % (auto) 0.0, Anion Gap 4L, Glomerular Filtration Rate 45.7, Calcium Level 8.4L 12/24/20 07:42: Bedside Glucose (Misc Panel) 337H 12/24/20 11:00: Bedside Glucose (Misc Panel) 294H CBC/BMP Laboratory Tests 12/24/20 04:45 LAURY CAREY DO Dec 24, 2020 13:06
[2020-12-24] MEDS: rOPINIRole 1MG TAB PO SCH (20:52)
[2020-12-24] MEDS: ATORVASTATIN 20 MG TAB PO SCH (20:52)
[2020-12-25] MEDS: LEVOTHYROXINE 125MCG TABLET (0.125MG) PO SCH (05:48)
[2020-12-25 06:00] VITALS: BP 131/58
[2020-12-25 07:49] LABS: HEMATOCRIT 38.6 % (36.0-47.0); HEMOGLOBIN 11.2 g/dl (12.0-15.5); MEAN CORPUSCULAR HEMOGLOBIN 28.3 pg (27.0-33.0); MEAN CORPUSCULAR VOLUME 97.5 fl (80.0-96.0); PLATELET COUNT, AUTOMATED 200 10^3/uL (150-450); RED BLOOD COUNT 3.96 10^6/uL (4.00-5.40); WHITE BLOOD COUNT 12.4 10^3/uL (4.0-10.0)
[2020-12-25] MEDS: BUDESONIDE 180MCG INHALER (PULMICORT FLEXHALER) INH SCH ×2 (07:49→20:00)
[2020-12-25 08:21] LABS: CALCIUM LEVEL 8.6 MG/DL (8.8-10.2); CREATININE FOR GFR 1.34 MG/DL (0.55-1.30); GLOMERULAR FILTRATION RATE 40.6 (>39); POTASSIUM SERUM 5.4 MEQ/L (3.5-5.1)
[2020-12-25] MEDS: GABAPENTIN 100 MG CAP PO SCH (08:48)
[2020-12-25] MEDS: oxyBUTYnin 5 MG TAB PO SCH ×2 (08:48→21:29)
[2020-12-25] MEDS: ASPIRIN 81MG ENTERIC TABLET PO SCH (08:48)
[2020-12-25] MEDS: CLOPIDOGREL 75 MG TAB PO SCH (08:48)
[2020-12-25] MEDS: METOPROLOL SUCC *XL* 25MG TAB (TopROL *XL*) PO SCH (08:48)
[2020-12-25] MEDS: DULoxetine 30 MG CAP (CYMBALTA) PO SCH (08:48)
[2020-12-25] MEDS: HumaLOG INSULIN (NovoLOG) PER UNIT SC SCH ×4 (08:49→20:37)
[2020-12-25] MEDS: FLUTICASONE PROP 0.05% NASAL SPRAY 16 GM (FLONASE) SCH ×2 (08:49→21:29)
[2020-12-25 13:28] LABS: CALCIUM LEVEL 8.7 MG/DL (8.8-10.2); CREATININE FOR GFR 1.24 MG/DL (0.55-1.30); GLOMERULAR FILTRATION RATE 44.4 (>39); POTASSIUM SERUM 4.8 MEQ/L (3.5-5.1)
[2020-12-25 14:00] VITALS: BP 144/59
--- NOTE | 2020-12-25 18:31 | IPNPDOC ---
Subjective Date Seen The patient was seen on 12/25/20. Subjective Chief Complaint/HPI Mrs. Saxena is a 80 year old female with hypertension, hyperlipidemia, DM type 2 and recent CVA on in September and November of 2020 who is here for right carotid endarterectomy. This morning, her right neck was sore, but denies chest pain or dyspnea. Objective Physical Examination General Exam: Positive: Alert, Cooperative Eye Exam: Positive: EOMI; Negative: Sclera icteric ENT Exam: Positive: Atraumatic Neck Exam: Positive: Other (Right neck has gauze where surgery was performed) Chest Exam: Positive: Clear to auscultation; Negative: Rales, Rhonchi, Wheezing Heart Exam: Positive: Rate Normal, Regular Rhythm Abdomen Exam: Positive: BS Hypoactive, Soft; Negative: Tenderness Extremity Exam: Negative: Edema Neuro Exam: Positive: Other (Left arm and left leg is weaker than right. ) Psych Exam: Positive: Mental status NL, Mood NL Assessment /Plan Assessment Mrs. Saxena is a 80 year old female with hypertension, hyperlipidemia, DM type 2 and recent CVA on in September and November of 2020 who is here for right carotid endarterectomy by Dr. Servin on 12/23/2020. Surgery has gone well. Patient will need to work more with physical therapy to determine disposition. May need rehab. Plan/VTE VTE Prophylaxis Ordered?: Yes Plan 1. Right carotid artery stenosis s/p right endarterectomy -Performed by Dr. Servin on 12/23/2020 -Blood pressure and heart rate goals per vascular surgery, On labetalol and hydralazine -Continue DAPT and statin. No chemical DVT ppx at this time 2. Diabetes mellitus type 2 -Carbohydrate consistent diet -Sliding scale insulin 3. Hypothyroidism -Continue levothyroxine 4. RLS -Continue ropinirole 5. COPD -Continue with 2L of oxygen -Continue with inhalers 6. DVT ppx -SCD and TEDs Disposition: Patient may need rehab. Pending recommendations from physical therapy VS, I&O, 24H, Fishbone Vital Signs/I&O Vital Signs Date Time Temp Pulse Resp B/P (MAP) Pulse Ox O2 Delivery O2 Flow Rate FiO2 12/25/20 14:00 98.6 91 15 144/59 (87) 96 Nasal Cannula 2.0 I&O- Last 24 Hours up to 6 AM 4/11/21 06:00 Intake Total 1220 ml Output Total 510 ml Balance 710 ml Laboratory Data 24H LABS Laboratory Tests 2 12/24/20 20:13: Bedside Glucose (Misc Panel) 341H 12/25/20 07:35: Nucleated Red Blood Cells % (auto) 0.0, Anion Gap 4L, Glomerular Filtration Rate 40.6, Calcium Level 8.6L 12/25/20 11:35: Bedside Glucose (Misc Panel) 232H 12/25/20 12:38: Anion Gap 3L, Glomerular Filtration Rate 44.4, Calcium Level 8.7L 12/25/20 16:30: Bedside Glucose (Misc Panel) 295H CBC/BMP Laboratory Tests 12/25/20 07:35 12/25/20 12:38 LAURY CAREY DO Dec 25, 2020 18:31
--- NOTE | 2020-12-25 20:14 | IPNPDOC ---
Date Seen The patient was seen on 12/25/20. Progress Note Patient doing well POD #2 s/p R CEA. Neuro exam remains intact. R neck incision intact, no bleeding swelling. Pain better. Stable from vascular standpoint to home or rehab depending on hospitalist/PT/OT decision. VS, I&O, 24H, Fishbone Vital Signs/I&O Vital Signs Date Time Temp Pulse Resp B/P (MAP) Pulse Ox O2 Delivery O2 Flow Rate FiO2 12/25/20 14:00 98.6 91 15 144/59 (87) 96 Nasal Cannula 2.0 I&O- Last 24 Hours up to 6 AM 12/25/20 09:00 Intake Total 1220 ml Output Total 200 ml Balance 1020 ml Laboratory Data 24H LABS Laboratory Tests 2 12/24/20 20:13: Bedside Glucose (Misc Panel) 341H 12/25/20 07:35: Nucleated Red Blood Cells % (auto) 0.0, Anion Gap 4L, Glomerular Filtration Rate 40.6, Calcium Level 8.6L 12/25/20 11:35: Bedside Glucose (Misc Panel) 232H 12/25/20 12:38: Anion Gap 3L, Glomerular Filtration Rate 44.4, Calcium Level 8.7L 12/25/20 16:30: Bedside Glucose (Misc Panel) 295H CBC/BMP Laboratory Tests 12/25/20 07:35 12/25/20 12:38 ROSEMARY TAPIA MD Dec 25, 2020 20:14
[2020-12-25] MEDS: rOPINIRole 1MG TAB PO SCH (21:29)
[2020-12-25] MEDS: ATORVASTATIN 20 MG TAB PO SCH (21:29)
[2020-12-25 22:00] VITALS: BP 156/66
[2020-12-26] MEDS: LEVOTHYROXINE 125MCG TABLET (0.125MG) PO SCH (05:30)
[2020-12-26 06:00] VITALS: BP 158/67
[2020-12-26 06:35] LABS: HEMATOCRIT 35.7 % (36.0-47.0); HEMOGLOBIN 10.5 g/dl (12.0-15.5); MEAN CORPUSCULAR HEMOGLOBIN 28.2 pg (27.0-33.0); MEAN CORPUSCULAR HGB CONC 29.4 g/dl (32.0-36.5); PLATELET COUNT, AUTOMATED 202 10^3/uL (150-450); RED BLOOD COUNT 3.72 10^6/uL (4.00-5.40); WHITE BLOOD COUNT 11.1 10^3/uL (4.0-10.0)
[2020-12-26 07:04] LABS: CALCIUM LEVEL 8.5 MG/DL (8.8-10.2); CREATININE FOR GFR 1.02 MG/DL (0.55-1.30); GLOMERULAR FILTRATION RATE 55.7 (>39); POTASSIUM SERUM 4.6 MEQ/L (3.5-5.1)
[2020-12-26] MEDS: BUDESONIDE 180MCG INHALER (PULMICORT FLEXHALER) INH SCH ×2 (08:10→20:08)
[2020-12-26] MEDS: DULoxetine 30 MG CAP (CYMBALTA) PO SCH (08:24)
[2020-12-26] MEDS: oxyBUTYnin 5 MG TAB PO SCH ×2 (08:24→20:26)
[2020-12-26] MEDS: ASPIRIN 81MG ENTERIC TABLET PO SCH (08:24)
[2020-12-26] MEDS: HumaLOG INSULIN (NovoLOG) PER UNIT SC SCH ×4 (08:24→21:00)
[2020-12-26] MEDS: GABAPENTIN 100 MG CAP PO SCH (08:25)
[2020-12-26] MEDS: CLOPIDOGREL 75 MG TAB PO SCH (08:25)
[2020-12-26] MEDS: FLUTICASONE PROP 0.05% NASAL SPRAY 16 GM (FLONASE) SCH ×2 (08:27→20:26)
[2020-12-26] MEDS: METOPROLOL SUCC *XL* 25MG TAB (TopROL *XL*) PO SCH (08:27)
[2020-12-26 09:43] VITALS: BP 111/54
--- NOTE | 2020-12-26 11:02 | IPNPDOC ---
Text Note Date of Service The patient was seen on 12/26/20. NOTE Vascular Surgery Dr Servin The pt is POD #3 s/p R CEA. The pt has been recovering well. Rt neck incision intact, no bleeding swelling, steri strips in place. Pain controlled. From vascular standpoint, OK to DC to home vs ARU depending on hospitalist/PT/OT recommendations. VS,Fishbone, I+O VS, Fishbone, I+O Laboratory Tests 12/25/20 12:38 12/26/20 05:53 12/26/20 05:54 Vital Signs Date Time Temp Pulse Resp B/P (MAP) Pulse Ox O2 Delivery O2 Flow Rate FiO2 12/26/20 09:43 111/54 (73) 12/26/20 08:27 90 12/26/20 06:00 98.0 18 95 Nasal Cannula 2.0 I&O- Last 24 Hours up to 6 AM 12/26/20 06:00 Intake Total 1906 ml Output Total 1350 ml Balance 556 ml Elyssa Marrufo Dec 26, 2020 11:02
[2020-12-26 14:00] VITALS: BP 133/56
--- NOTE | 2020-12-26 19:47 | IPNPDOC ---
Subjective Date Seen The patient was seen on 12/26/20. Subjective Chief Complaint/HPI Mrs. Saxena is a 80 year old female with hypertension, hyperlipidemia, DM type 2 and recent CVA on in September and November of 2020 who is here for right carotid endarterectomy. This morning, she denies chest pain or dyspnea. Still has right neck pain. Spoke with vascular surgery. Patient is okay to be off bed rest. Objective Physical Examination General Exam: Positive: Alert, Cooperative Eye Exam: Positive: EOMI; Negative: Sclera icteric ENT Exam: Positive: Atraumatic Neck Exam: Positive: Other (Right neck has gauze where surgery was performed) Chest Exam: Positive: Clear to auscultation; Negative: Rales, Rhonchi, Wheezing Heart Exam: Positive: Rate Normal, Regular Rhythm Abdomen Exam: Positive: BS Hypoactive, Soft; Negative: Tenderness Extremity Exam: Negative: Edema Neuro Exam: Positive: Other (Left arm and left leg is weaker than right. ) Psych Exam: Positive: Mental status NL, Mood NL Assessment /Plan Assessment Mrs. Saxena is a 80 year old female with hypertension, hyperlipidemia, DM type 2 and recent CVA on in September and November of 2020 who is here for right carotid endarterectomy by Dr. Servin on 12/23/2020. Surgery has gone well. Patient will need to work more with physical therapy to determine disposition. May need rehab. Plan/VTE VTE Prophylaxis Ordered?: Yes Plan 1. Right carotid artery stenosis s/p right endarterectomy -Performed by Dr. Servin on 12/23/2020 -Blood pressure and heart rate goals per vascular surgery, On labetalol and hydralazine -Continue DAPT and statin. 2. Diabetes mellitus type 2 -Carbohydrate consistent diet -Sliding scale insulin 3. Hypothyroidism -Continue levothyroxine 4. RLS -Continue ropinirole 5. COPD -Continue with 2L of oxygen -Continue with inhalers 6. DVT ppx -Heparin subQ Disposition: Patient may need rehab. Pending recommendations from physical therapy VS, I&O, 24H, Fishbone Vital Signs/I&O Vital Signs Date Time Temp Pulse Resp B/P (MAP) Pulse Ox O2 Delivery O2 Flow Rate FiO2 12/26/20 14:00 98.0 88 18 133/56 (81) 92 Nasal Cannula 2.0 I&O- Last 24 Hours up to 6 AM 12/26/20 06:00 Intake Total 1906 ml Output Total 1350 ml Balance 556 ml Laboratory Data 24H LABS Laboratory Tests 2 12/25/20 19:59: Bedside Glucose (Misc Panel) 238H 12/26/20 05:53: Nucleated Red Blood Cells % (auto) 0.0 12/26/20 05:54: Anion Gap 2L, Glomerular Filtration Rate 55.7, Calcium Level 8.5L 12/26/20 12:56: Bedside Glucose (Misc Panel) 229H 12/26/20 16:30: Bedside Glucose (Misc Panel) 210H CBC/BMP Laboratory Tests 12/26/20 05:53 12/26/20 05:54 LAURY CAREY DO Dec 26, 2020 19:47
[2020-12-26] MEDS: HEPARIN SOD (PORCINE) 5000UNITS/ML 1ML VIAL/SYRINGE SQ SCH (20:26)
[2020-12-26] MEDS: ATORVASTATIN 20 MG TAB PO SCH (20:26)
[2020-12-26] MEDS: rOPINIRole 1MG TAB PO SCH (20:26)
[2020-12-26 22:00] VITALS: BP 154/64
[2020-12-27] MEDS: LEVOTHYROXINE 125MCG TABLET (0.125MG) PO SCH (05:51)
[2020-12-27 06:00] VITALS: BP 156/74
[2020-12-27 06:50] LABS: HEMATOCRIT 33.7 % (36.0-47.0); MEAN CORPUSCULAR HEMOGLOBIN 27.8 pg (27.0-33.0); MEAN CORPUSCULAR HGB CONC 29.7 g/dl (32.0-36.5); MEAN CORPUSCULAR VOLUME 93.6 fl (80.0-96.0); PLATELET COUNT, AUTOMATED 195 10^3/uL (150-450); WHITE BLOOD COUNT 9.5 10^3/uL (4.0-10.0)
[2020-12-27 07:13] LABS: BLOOD UREA NITROGEN 21 MG/DL (7-18); CALCIUM LEVEL 9.1 MG/DL (8.8-10.2); CARBON DIOXIDE LEVEL 36 MEQ/L (21-32); CHLORIDE LEVEL 100 MEQ/L (98-107); CREATININE FOR GFR 0.84 MG/DL (0.55-1.30); GLOMERULAR FILTRATION RATE > 60.0 (>39); GLUCOSE, FASTING 281 MG/DL (70-100); SODIUM LEVEL 138 MEQ/L (136-145)
[2020-12-27] MEDS: BUDESONIDE 180MCG INHALER (PULMICORT FLEXHALER) INH SCH ×2 (07:24→19:16)
--- NOTE | 2020-12-27 07:36 | IPNPDOC ---
Date Seen The patient was seen on 12/27/20. Progress Note Patient seen and examined postop day 4 test plus right CEA for symptomatic right carotid stenosis with persistent left-sided weakness. The patient's neuro exam has remained her baseline postprocedure. No new neuro deficits noted postop, and today her exam is even mildly improved. Her speech is clear, vision grossly intact, no difficulty with mastication per the patient, left upper and lower ex tremity strength is just a little better than her baseline. She is alert and oriented 3. Her right neck is soft with no hematoma, incisions are clean dry and intact with Steri-Strips intact. She did ambulate with PT yesterday which we are grateful for, and we are still awaiting recommendations for home versus rehabilitation. I definitely think the patient could benefit from additional rehabilitation if she could qualify. She has had some recent falls at home prior to surgery, so we will see if rehabilitation as an option. From a surgical standpoint, the patient is fine for discharge home or to rehabilitation when appropriate. We would need to see her back in a week to check her incision if she is DC to home. She will need at least 2 additional weeks of Plavix, and then Plavix can be discontinued from a vascular surgery standpoint if desired. She will need to be on aspirin and statin for life. We appreciate the opportunity to participate in the care of this patient. VS, I&O, 24H, [place] Vital Signs/I&O Vital Signs Date Time Temp Pulse Resp B/P (MAP) Pulse Ox O2 Delivery O2 Flow Rate FiO2 12/27/20 06:00 98.0 85 20 156/74 (101) 95 Nasal Cannula 2.0 I&O- Last 24 Hours up to 6 AM 12/27/20 06:00 Intake Total 2025 ml Output Total 1550 ml Balance 475 ml Laboratory Data 24H LABS Laboratory Tests 2 12/26/20 12:56: Bedside Glucose (Misc Panel) 229H 12/26/20 16:30: Bedside Glucose (Misc Panel) 210H 12/26/20 20:11: Bedside Glucose (Misc Panel) 214H 12/27/20 06:32: Nucleated Red Blood Cells % (auto) 0.0, Anion Gap 2L, Glomerular Filtration Rate > 60.0, Calcium Level 9.1 CBC/BMP Laboratory Tests 12/27/20 06:32 ROSEMARY TAPIA MD Dec 27, 2020 07:36
[2020-12-27] MEDS ORDERED: PERCOCET PO (08:00)
[2020-12-27] MEDS ORDERED: METO1TAB32 PO (08:00)
[2020-12-27] MEDS: HumaLOG INSULIN (NovoLOG) PER UNIT SC SCH ×4 (08:25→20:00)
[2020-12-27] MEDS: oxyBUTYnin 5 MG TAB PO SCH ×2 (08:26→20:00)
[2020-12-27] MEDS: CLOPIDOGREL 75 MG TAB PO SCH (08:26)
[2020-12-27] MEDS: ASPIRIN 81MG ENTERIC TABLET PO SCH (08:26)
[2020-12-27] MEDS: HEPARIN SOD (PORCINE) 5000UNITS/ML 1ML VIAL/SYRINGE SQ SCH ×2 (08:26→20:00)
[2020-12-27] MEDS: DULoxetine 30 MG CAP (CYMBALTA) PO SCH (08:26)
[2020-12-27] MEDS: GABAPENTIN 100 MG CAP PO SCH (08:26)
[2020-12-27 08:30] VITALS: BP 169/64
[2020-12-27] MEDS: METOPROLOL SUCC *XL* 25MG TAB (TopROL *XL*) PO SCH (08:30)
[2020-12-27] MEDS: FLUTICASONE PROP 0.05% NASAL SPRAY 16 GM (FLONASE) SCH ×2 (08:30→20:00)
--- NOTE | 2020-12-27 13:24 | DS.PDOC ---
Discharge Summary General Date of Admission Dec 23, 2020 at 06:00 Date of Discharge 12/27/20 DISCHARGED TO ACUTE REHAB UNIT Discharge Summary DR BULLARD'S DISCHARGE NOTE JOB #[id number] Vital Signs/I&Os Vital Signs Date Time Temp Pulse Resp B/P (MAP) Pulse Ox O2 Delivery O2 Flow Rate FiO2 12/27/20 08:30 83 169/64 12/27/20 06:00 98.0 20 95 Nasal Cannula 2.0 I&O- Last 24 Hours up to 6 AM 12/27/20 06:00 Intake Total 2025 ml Output Total 1550 ml Balance 475 ml Laboratory Data Labs 24H Laboratory Tests 2 12/26/20 16:30: Bedside Glucose (Misc Panel) 210H 12/26/20 20:11: Bedside Glucose (Misc Panel) 214H 12/27/20 06:32: Nucleated Red Blood Cells % (auto) 0.0, Anion Gap 2L, Glomerular Filtration Rate > 60.0, Calcium Level 9.1 12/27/20 12:22: Bedside Glucose (Misc Panel) 318H CBC/BMP Laboratory Tests 12/27/20 06:32 FSBS Laboratory Tests Test 12/26/20 16:30 12/26/20 20:11 12/27/20 12:22 Range/Units Bedside Glucose (Misc Panel) 210 214 318 83-110 MG/DL Discharge Medications Scheduled Alprazolam (Xanax) 1 Mg Tablet, 1 MG PO QHS, (Reported) Aspirin (Aspirin EC) 81 Mg Tablet.dr, 81 MG PO DAILY, (Reported) Atorvastatin Calcium (Atorvastatin Calcium) 40 Mg Tablet, 40 MG PO QHS, (Reported) Budesonide (Pulmicort Flexhaler) 90 Mcg Aer.pow.ba, 2 PUFFS INH BID, (Reported) Clopidogrel Bisulfate (Clopidogrel) 75 Mg Tablet, 75 MG PO DAILY, (Reported) Duloxetine Hcl (Duloxetine HCl) 60 Mg Capsule.dr, 60 MG PO DAILY, (Reported) Fluticasone Propionate (Flonase Allergy Relief) 9.9 Ml [place].susp, 50 MCG NA BID, (Reported) Gabapentin (Gabapentin) 100 Mg Capsule, 100 MG PO DAILY, (Reported) Insulin NPH Hum/Reg Insulin Hm (Novolin 70-30 100 Unit/ml Vial) 100 Unit/1 Ml Vial, 40 UNITS SC BID, (Reported) Levothyroxine Sodium (Levothyroxine Sodium) 125 Mcg Tablet, 125 MCG PO DAILY, (Reported) Metoprolol Succinate (Toprol Xl) 25 Mg Tab.er.24h, 25 MG PO DAILY, (Reported) Metoprolol Succinate (Metoprolol Succinate) 25 Mg Tab.er.24h, 25 MG PO QAM Oxybutynin Chloride (Oxybutynin Chloride) 5 Mg Tablet, 5 MG PO BID, (Reported) Ropinirole HCl (Ropinirole HCl) 1 Mg Tablet, 1 MG PO QHS, (Reported) Scheduled PRN Oxycodone/Acetaminophen (Oxycodone-Acetaminophen 5-325) 1 Each Tablet, 1 TAB PO Q4HP PRN for MODERATE PAIN (PS 5-7) Allergies Coded Allergies: Penicillins (Verified Allergy, Intermediate, rash, 12/09/20) Tetracyclines (Verified Allergy, Intermediate, rash, 12/09/20) Sulfa (Sulfonamide Antibiotics) (Verified Adverse Reaction, Mild, mouth sores, 12/09/20) SAM BULLARD MD Dec 27, 2020 13:24
[2020-12-27 14:00] VITALS: BP 152/70
[2020-12-27 19:16] VITALS: O2SAT 95
[2020-12-27] MEDS: ATORVASTATIN 20 MG TAB PO SCH (20:00)
[2020-12-27] MEDS: rOPINIRole 1MG TAB PO SCH (20:00)
[2020-12-27] MEDS: ALPRAZolam 0.5 MG TAB PO PRN (20:06)
[2020-12-27] MEDS ORDERED: OXYC1TAB23 PO (22:22)
== END 2020-12-27 21:09 | DRG 38 ==
LOC: M OR 12-23 06:00 → M ICU 12-23 12:14 → M MSPAV 12-24 14:18
PROVIDERS: ADMIT Surgery Vascular Surgery; ATTEND General Practice
PROC: 03UK0JZ Supplement Right Internal Carotid Artery with Synthetic Substitute, Open Approach (ICD-10-PCS; 2020-12-23)
PROC: 03CK0ZZ Extirpation of Matter from Right Internal Carotid Artery, Open Approach (ICD-10-PCS; principal; 2020-12-23 07:30)
DX: I65.21 Occlusion and stenosis of right carotid artery (principal); I69.354 Hemiplegia and hemiparesis following cerebral infarction affecting left non-dominant side; J96.11 Chronic respiratory failure with hypoxia; I10 Essential (primary) hypertension; E78.5 Hyperlipidemia, unspecified; J44.9 Chronic obstructive pulmonary disease, unspecified; G47.33 Obstructive sleep apnea (adult) (pediatric); E89.0 Postprocedural hypothyroidism; Z85.51 Personal history of malignant neoplasm of bladder; F41.9 Anxiety disorder, unspecified; G25.81 Restless legs syndrome; M79.7 Fibromyalgia; E11.9 Type 2 diabetes mellitus without complications; G89.29 Other chronic pain; F17.200 Nicotine dependence, unspecified, uncomplicated; Z92.3 Personal history of irradiation; Z90.49 Acquired absence of other specified parts of digestive tract; Z98.41 Cataract extraction status, right eye; Z98.42 Cataract extraction status, left eye; Z79.02 Long term (current) use of antithrombotics/antiplatelets; Z79.82 Long term (current) use of aspirin; Z79.899 Other long term (current) drug therapy; Z88.0 Allergy status to penicillin; Z88.2 Allergy status to sulfonamides; Z99.81 Dependence on supplemental oxygen

== ENCOUNTER → 2020-11-14 | Outpatient (REF) | payer MEDICARE, BC ==
[~2020-11-14] MED LIST changes: +ASPI81TA26 PO; +FLON1SPR; +LEVO125T4 PO; +NOVO1INJ4 SC; +OXYC1TAB23 PO; +PERCOCET PO; +PULM90IN INH; +TOPR25TA PO; +XANA1TAB2 PO
== END ==
LOC: M LAB REF 17:18
PROVIDERS: ATTEND Dermatology
DX: D23.5 Other benign neoplasm of skin of trunk (principal)

== ENCOUNTER 2020-12-09 12:06 | Inpatient (IN) | payer MEDICARE, BC ==
[~2020-12-09] VITALS: Ht 154.9 cm; Wt 89.8 kg
[~2020-12-09 12:06] MED LIST changes: -ASPI81TA26 PO; -LEVO125T4 PO; -OXYC1TAB23 PO; -PERCOCET PO; -PULM90IN INH; -TOPR25TA PO
[2020-12-09] MEDS ORDERED: CHLO125TA PO (12:40)
[2020-12-09] MEDS ORDERED: NS 500 ML IV ONE (12:40)
[2020-12-09 13:09] LABS: BASO # 0.1 10^3/uL (0.0-0.2); BASO % 0.6 % (0.0-1.0); EOS # 0.3 10^3/uL (0.0-0.5); EOS % 3.3 % (0.0-3.0); HEMATOCRIT 35.4 % (36.0-47.0); HEMOGLOBIN 10.9 g/dl (12.0-15.5); LYMPH # 1.7 10^3/uL (1.5-5.0); LYMPH % 17.1 % (24.0-44.0); MEAN CORPUSCULAR HEMOGLOBIN 28.5 pg (27.0-33.0); MEAN CORPUSCULAR HGB CONC 30.8 g/dl (32.0-36.5); MEAN CORPUSCULAR VOLUME 92.7 fl (80.0-96.0); MONO # 0.6 10^3/uL (0.0-0.8); MONO % 5.5 % (2.0-8.0); NEUTROPHILS # 7.4 10^3/uL (1.5-8.5); NEUTROPHILS % 72.7 % (36.0-66.0); PLATELET COUNT, AUTOMATED 197 10^3/uL (150-450); RED BLOOD COUNT 3.82 10^6/uL (4.00-5.40); WHITE BLOOD COUNT 10.2 10^3/uL (4.0-10.0)
--- NOTE | 2020-12-09 13:24 | REP ---
INDICATION: Altered Mental Status. COMPARISON: 10/14/2020. TECHNIQUE: SINGLE PORTABLE AP VIEW OF THE CHEST WAS PERFORMED. FINDINGS: There is cardiomegaly and chronic vascular congestion unchanged. No focal infiltrate is visualized. There is chronic elevation of the right hemidiaphragm unchanged. There is calcification of the thoracic aorta. Mediastinal silhouette appears grossly unchanged. IMPRESSION: NO ACUTE PULMONARY DISEASE.Cardiomegaly and chronic vascular congestion. <Electronically signed by Alonzo Amos > 12/09/20 [id number]
[2020-12-09 13:45] LABS: ALBUMIN 3.2 GM/DL (3.2-5.2); ALT/SGPT 19 U/L (12-78); BILIRUBIN,DIRECT < 0.1 MG/DL (0.0-0.2); BILIRUBIN,TOTAL 0.2 MG/DL (0.2-1.0); BLOOD UREA NITROGEN 32 MG/DL (7-18); CALCIUM LEVEL 8.8 MG/DL (8.8-10.2); CARBON DIOXIDE LEVEL 34 MEQ/L (21-32); CHLORIDE LEVEL 99 MEQ/L (98-107); CK-MB VALUE MASS < 1.0 NG/ML (<3.6); CPK CREATINE PHOSPHOKINASE 55 U/L (26-192); CREATININE FOR GFR 1.24 MG/DL (0.55-1.30); GLOMERULAR FILTRATION RATE 44.4 (>39); GLUCOSE, FASTING 278 MG/DL (70-100); MB/CK RELATIVE INDEX 1.82 (< OR =4); POTASSIUM SERUM 3.8 MEQ/L (3.5-5.1); SODIUM LEVEL 138 MEQ/L (136-145); TOTAL PROTEIN 6.9 GM/DL (6.4-8.2); TROPONIN I 0.02 NG/ML (< 0.10)
--- NOTE | 2020-12-09 15:24 | REP ---
INDICATION: confusion, fall. COMPARISON: Comparison head CT study 01 October 2020.. TECHNIQUE: Helical scanning is acquired. 5 mm axial images were reformatted. Coronal MPR images were generated. FINDINGS: Bone window settings demonstrate an intact bony calvarium. There is no evidence of skull fracture or incidental bony calvarial lesion. The visualized paranasal sinuses appear clear. No intraorbital abnormality is seen. On soft tissue window setting images; the lateral, third, and fourth ventricles are normal in size and position. Amos-white differentiation pattern is normal above and below the tentorium. There are is no evidence of intracranial hemorrhage. No mass, edema, infarction, or midline shift is seen. No extra-axial fluid collection is appreciated. There is moderate vascular calcification and moderate generalized volume loss is again seen. There is concordant ventricular enlargement. There is a well-defined radiolucency in the periventricular white matter of the right frontal lobe which is a new finding compared with 01 October 2020 study consistent with a lacunar infarct. Subacute old as it is quite well circumscribed and low in density. No acute infarction is apparent. Previously noted posterior fossa subarachnoid cyst again seen to the left of midline unchanged. No other extra-axial fluid collection is seen. IMPRESSION: Lacunar infarct is seen in the periventricular white matter of the right frontal lobe today, new from October 01, 2020. Its appearance is subacute to chronic. No acute infarction or hemorrhage seen. Moderate generalized volume loss vascular calcification seen. Stable posterior fossa subarachnoid cyst again noted.. <Electronically signed by Maverick Gibson > 12/09/20 [id number]
[2020-12-09] MEDS ORDERED: ACETAMINOPHEN TAB 650MG DOSE (2X325MG) PO PRN (16:45)
[2020-12-09] MEDS ORDERED: GLUCAGON INJ 1MG VIAL SC PRN (16:45)
[2020-12-09] MEDS ORDERED: GLUCOSE 4GM CHEW TABLET PO PRN (16:45)
[2020-12-09] MEDS ORDERED: DEXTROSE 50% 50 ML SYRINGE IV PRN (16:45)
[2020-12-09] MEDS ORDERED: MOM 30ML SUSPENSION UDC PO PRN (16:45)
[2020-12-09] MEDS ORDERED: TOPR25TA PO (16:46)
[2020-12-09] MEDS ORDERED: ROPI1TAB3 PO (16:48)
[2020-12-09] MEDS ORDERED: LOSA25TA14 PO (16:50)
[2020-12-09] MEDS ORDERED: ISOVUE-370 76% 100ML VIAL As Ordered ONE (16:53)
[2020-12-09 17:08] LABS: CHOLESTEROL LEVEL 105 MG/DL (<200); HDL CHOLESTEROL 64 MG/DL (>40); LDL CHOLESTEROL 28 MG/DL (<100); NON-HDL-C 41 MG/DL; TRIGLYCERIDES LEVEL 66 MG/DL (<150)
--- NOTE | 2020-12-09 17:08 | HPEPDOC ---
[facility] Medical History & Physical Date of Admission Dec 09, 2020 Date of Service: Dec 09, 2020 History and Physical Chief complaint: Who presented to the emergency room after sprinting multiple falls and exper iencing transient confusion. History of present illness: Patient is a 80-year-old female who presented to the emergency room after experiencing transient confusion this morning. Patients son is at the bedside providing details of the story. Patient has had a recent stroke in September. She experience left upper extremity weakness. Patient was admitted to hospital service and then transitioned to acute rehabilitation was ultimately discharged home. Patient was started on aspirin and Plavix was found to have carotid artery stenosis for which she has been scheduled for a carotid endarterectomy on December [address] Servin. Patient has reported multiple falls and feeling imbalanced over the last 2 weeks this morning. Patients daughter had reported that she may have seen some facial droop unclear which side, but had confusion for approximately 20 minutes between the hours of 9 AM and 11 AM. Patient came to the ER for further evaluation, however upon arrival, her symptoms had resolved. Currently patient denies any headache, nausea, vomiting, chest pain, shortness of breath, palpitations. Does report a dry cough. Denies any abdominal pain. Reports constipation and her last bowel movement was yesterday. Denies any diarrhea. Denies any urinary discomfort. Patient denies any fevers but does report feeling cold. Patient reports her appetite is doing fine, but may have experienced some weight loss. Past Medical History: CVA (09/2020) HTN DLP IDDM2 COPD GERALD not on CPAP Hx of Graves s/p Radiation; now hypothyroidism Bladder CA s/p resection Anxiety RLS / Chronic pain / Fibromyalgia Nicotine dependence Past Surgical History: Thyroid radiation Cholecystectomy Bladder stent Back surgery Bilateral foot bunionectomy Right toe surgery Bilateral carpal tunnel release Bilateral cataract Cystoscopy 09/2019 Allergies: See below Medications: See below Family History: - No history of malignancies Social History: - Denies the use of alcohol or illicit drugs; patient reports that she is a smoker of greater than 60 years - Denies recent travel or sick contacts - Lives alone but her son lives next door - Patient uses a walker at baseline - Occupation Review of Systems: 10 point review of systems complete, all negative otherwise stated in HPI Physical exam: - Vitals: BP [133/62], HR [69], RR [18], Sat [94%RA], Temp [98.5F] - General: Lying in bed, Speaking in full sentences, AAOx3 - HEENT: NC, AT, PERRLA - CVS: RRR, +S1S2 - Lungs: Fair air entry bilaterally, No appreciable wheezing / rales / rhonchi - Abdomen: Soft, Non-distended, LLQ tenderness, positive bowel sounds - Extremities: Trace LE edema bilaterally, No calf tenderness - Neuro: Left U/LE with 4/5 strength, Right U/LE with 5/5 strength - Skin: No visible rashes Labs: See below Imaging: CXR 12/09: NO ACUTE PULMONARY DISEASE. Cardiomegaly and chronic vascular congestion. CT Head 12/09: Lacunar infarct is seen in the periventricular white matter of the right frontal lobe today, new from October 01, 2020. Its appearance is subacute to chronic. No acute infarction or hemorrhage seen. Moderate generalized volume loss vascular calcification seen. Stable posterior fossa subarachnoid cyst again noted.. EKG: See below Assessment and Plan: Transient confusion / Left sided weakness / Multiple falls - possibly 2/2 acute CVA - Patient has had a recent CVA 09/2020 with left arm weakness - Currently physical reveals left-sided weakness - Imaging noted above - Will get MRI / MRA / Carotid duplex / Cardiac risk profile - Telemetry monitoring / ECHO - Telemetry monitoring / Troponin trend - Patient was scheduled for carotid endarterectomy 12/[address] Servin - Will c/w ASA 81 / Plavix 75 / Atorvastatin 40 HTN - Will allow for permissive HTN until MRI results - Allow SBP to remain between 140-160 - Will hold Amlodipine / Hydralazine / Losartan - c/w Chlorthalidone / Metoprolol IDDM2 DLP - c/w Atorvastatin Chronic COPD - No evidence of exacerbation - Imaging reviewed above - Continue with inhaled therapy as ordered GERALD not on CPAP Hx of Graves s/p Radiation; now hypothyroidism - c/w Levothyroxine Bladder CA s/p resection - c/w Oxybutynin Anxiety - c/w Alprazolam PRN RLS / Chronic pain / Fibromyalgia - c/w Ropinirole / Duloxetine / Gabapentin Nicotine dependence - Advised smoking cessation - Will start Nicotine patch DVT prophylaxis - Will start Heparin Vital Signs Vital Signs Date Time Temp Pulse Resp B/P (MAP) Pulse Ox O2 Delivery O2 Flow Rate FiO2 12/09/20 17:00 18 121/56 (77) Room Air 12/09/20 16:55 68 12/09/20 16:40 90 12/09/20 12:30 98.5 Laboratory Data Labs 24H Laboratory Tests 2 12/09/20 12:53: Immature Granulocyte % (Auto) 0.8, Neutrophils (%) (Auto) 72.7H, Lymphocytes (%) (Auto) 17.1L, Monocytes (%) (Auto) 5.5, Eosinophils (%) (Auto) 3.3H, Basophils (%) (Auto) 0.6, Neutrophils # (Auto) 7.4, Lymphocytes # (Auto) 1.7, Monocytes # (Auto) 0.6, Eosinophils # (Auto) 0.3, Basophils # (Auto) 0.1, Nucleated Red Blood Cells % (auto) 0.0, Anion Gap 5L, Glomerular Filtration Rate 44.4, Lactic Acid Level 1.5, Calcium Level 8.8, Total Bilirubin 0.2, Direct Bilirubin < 0.1, Aspartate Amino Transf (AST/SGOT) 11, Alanine Aminotransferase (ALT/SGPT) 19, Alkaline Phosphatase 157H, Ammonia 15, Total Creatine Kinase 55, Creatine Kinase MB < 1.0, Creatine Kinase MB Relative Index 1.82, Troponin I 0.02, Total Protein 6.9, Albumin 3.2, Albumin/Globulin Ratio 0.9L, Thyroid Stimulating Hormone (TSH) 6.260H 12/09/20 14:11: Urine Color YELLOW, Urine Appearance HAZY, Urine pH 6.0, Urine Specific [place] 1.013, Urine Protein NEGATIVE, Urine Glucose (UA) NEGATIVE, Urine Ketones NEGATIVE, Urine Blood NEGATIVE, Urine Nitrite NEGATIVE, Urine Bilirubin NEGATIVE, Urine Urobilinogen 0.2, Urine Leukocyte Esterase NEGATIVE, Urine WBC (Auto) 0, Urine RBC (Auto) 1, Urine Hyaline Casts (Auto) 0, Urine Bacteria (Auto) NEGATIVE, Urine Squamous Epithelial Cells 8, Urine Sperm (Auto) 12/09/20 16:05: Coronavirus (COVID-19)(PCR) NEGATIVE CBC/BMP Laboratory Tests 12/09/20 12:53 Home Medications Scheduled Alprazolam (Xanax) 1 Mg Tablet, 1 MG PO QHS Amlodipine Besylate (Amlodipine Besylate) 10 Mg Tablet, 10 MG PO DAILY Aspirin (Aspirin EC) 81 Mg Tablet.dr, 81 MG PO DAILY Atorvastatin Calcium (Atorvastatin Calcium) 40 Mg Tablet, 40 MG PO QPM Budesonide (Pulmicort Flexhaler) 180 Mcg Aer.pow.ba, 2 PUFF INH RBID Chlorthalidone (Chlorthalidone) 25 Mg Tablet, 25 MG PO DAILY Clopidogrel Bisulfate (Clopidogrel) 75 Mg Tablet, 75 MG PO DAILY Duloxetine Hcl (Duloxetine HCl) 60 Mg Capsule.dr, 60 MG PO DAILY Fluticasone Propionate (Flonase Allergy Relief) 9.9 Ml [place].susp, 50 MCG NA BID Gabapentin (Gabapentin) 100 Mg Capsule, 100 MG PO DAILY Hydralazine HCl (Hydralazine HCl) 25 Mg Tablet, 25 MG PO BID Insulin NPH Hum/Reg Insulin Hm (Novolin 70-30 100 Unit/ml Vial) 100 Unit/1 Ml Vial, 40 UNITS SC BID Levothyroxine Sodium (Synthroid) 125 Mcg Tablet, 125 MCG PO DAILY Losartan Potassium (Losartan Potassium) 25 Mg Tablet, 25 MG PO DAILY Metoprolol Succinate (Toprol Xl) 25 Mg Tab.er.24h, 25 MG PO DAILY Oxybutynin Chloride (Oxybutynin Chloride) 5 Mg Tablet, 5 MG PO BID Ropinirole HCl (Ropinirole HCl) 1 Mg Tablet, 1 MG PO QHS Allergies Coded Allergies: Penicillins (Verified Allergy, Intermediate, rash, 12/09/20) Tetracyclines (Verified Allergy, Intermediate, rash, 12/09/20) Sulfa (Sulfonamide Antibiotics) (Verified Adverse Reaction, Mild, mouth sores, 12/09/20) MATTEO GILLIAM MD Dec 09, 2020 17:08
[2020-12-09] MEDS ORDERED: NICOTINE 14 MG/24 HR TRANSDERMAL TD PRN (17:10)
--- NOTE | 2020-12-09 17:42 | REP ---
INDICATION: Transient confusion / falls COMPARISON: Comparison study is from 01 October 2020.. TECHNIQUE: Real-time ultrasound evaluation and duplex Doppler interrogation of the extracranial carotid vasculature is performed. FINDINGS: Antegrade flow is observed in both vertebral arteries. Right carotid: The right common carotid artery shows moderate mixed plaquing.. There moderate mixed plaquing in the right carotid bulb and proximal ICA on two-dimensional scanning. Color flow and spectral Doppler interrogation are unremarkable on the right. Velocity chart right carotid: Right CCA PSV: 85 cm/S Right ICA PSV: 170 cm/S Right ICA EDV: 543 cm/S Right ECA PSV: 115 cm/S Right ICA/CCA ratio: 2.05 Left carotid: The left common carotid artery shows moderate mixed plaquing. There is moderate to marked mixed plaquing in the left carotid bulb and proximal ICA on two-dimensional scanning. Color flow and spectral Doppler interrogation are unremarkable on the left. Velocity chart left carotid: Left CCA PSV: 81 cm/S Left ICA PSV: 182 cm/S Left ICA EDV: 33 cm/S Left ECA PSV: 255 cm/S Left ICA/CCA ratio: 2.24 IMPRESSION: 50-69% category narrowing in the right internal carotid artery by Doppler velocity criteria. The right ICA peak systolic velocity recorded today is somewhat less than on the prior study. 50-69% category narrowing in the left ICA by Doppler velocity criteria. <Electronically signed by Maverick Gibson > 12/09/20 [id number]
--- NOTE | 2020-12-09 18:00 | REPVR ---
PROCEDURE INFORMATION: Exam: CT Abdomen And Pelvis With Contrast Exam date and time: 12/09/2020 5:19 PM Age: 80 years old Clinical indication: Abdominal pain; Additional info: Llq pain TECHNIQUE: Imaging protocol: Computed tomography of the abdomen and pelvis with contrast. Radiation optimization: All CT scans at this facility use at least one of these dose optimization techniques: automated exposure control; mA and/or kV adjustment per patient size (includes targeted exams where dose is matched to clinical indication); or iterative reconstruction. Contrast material: ISOVUE 370; Contrast volume: 100 ml; Contrast route: INTRAVENOUS (IV); COMPARISON: CT ABD PELVIS W/O CONTRAST 10/01/2019 2:05 PM FINDINGS: Liver: Normal. No mass. Gallbladder and bile ducts: Cholecystectomy clips. Pancreas: Normal. No ductal dilation. Spleen: Normal. No splenomegaly. Adrenal glands: Normal. No mass. Kidneys and ureters: The 2.7 cm cyst in the midpole of right kidney. Stomach and bowel: Unremarkable. No obstruction. No mucosal thickening. Appendix: No evidence of appendicitis. Intraperitoneal space: Unremarkable. No free air. No significant fluid collection. Vasculature: IVC filter. Atherosclerotic calcification of the abdominal aorta. Lymph nodes: Unremarkable. No enlarged lymph nodes. Urinary bladder: Unremarkable as visualized. Reproductive: Unremarkable as visualized. Bones/joints: L1 vertebroplasty. Diffuse demineralization of the bones. Soft tissues: Unremarkable. IMPRESSION: No acute abdominal or pelvic abnormality. COMMENTS: 1. Consistent with the [employer]'s Incidental Findings Committee white paper (J Am Jennifer Radiol 2018): Any incidental renal lesion less than 1 cm or classified as too small to characterize, or any incidental cystic renal lesion characterized as simple-appearing, is likely benign. No follow-up imaging is recommended for these lesions per consensus recommendations based on imaging criteria. 2. For patients with an IVC filter, recommend assessment for a management plan for the patients IVC filter. If there is no established management plan, recommend referral to an interventional clinician on a nonemergent basis for evaluation. Electronically signed by: Filipe Contreras On 12/09/2020 18:00:28 PM
[2020-12-09] MEDS: HumaLOG INSULIN (NovoLOG) PER UNIT SC SCH ×2 (18:46→22:09)
[2020-12-09 19:00] LABS: CK-MB VALUE MASS 1.2 NG/ML (<3.6); TROPONIN I 0.02 NG/ML (< 0.10)
[2020-12-09] MEDS: BUDESONIDE 180MCG INHALER (PULMICORT FLEXHALER) INH SCH (20:00)
[2020-12-09 21:25] VITALS: BP 137/60
[2020-12-09] MEDS: FLUTICASONE PROP 0.05% NASAL SPRAY 16 GM (FLONASE) SCH (22:00)
[2020-12-09] MEDS: DOCUSATE SODIUM 100MG CAPSULE PO SCH (22:10)
[2020-12-09] MEDS: oxyBUTYnin 5 MG TAB PO SCH (22:11)
[2020-12-09] MEDS: ATORVASTATIN 20 MG TAB PO SCH (22:11)
[2020-12-09] MEDS: rOPINIRole 1MG TAB PO SCH (22:11)
[2020-12-09] MEDS: ALPRAZolam 0.5 MG TAB PO SCH (22:11)
[2020-12-09] MEDS: HEPARIN SOD (PORCINE) 5000UNITS/ML 1ML VIAL/SYRINGE SC SCH (22:11)
--- NOTE | 2020-12-09 22:23 | ECGEPIP ---
[facility] - ED Test Date: 2020-12-09 Pat Name: DANIELA HOLLIDAY Department: Room: - Gender: Female Skin Former: LARRY : 1940 Requested By: BHARATI HADLEY PA-C. Order Number: [id number] Reading MD: Maynor Martin Measurements Intervals [place] Rate: 66 P: 71 NM: 126 QRS: -34 QRSD: 146 T: 111 QT: 468 QTc: 490 Interpretive Statements Normal sinus rhythm Left bundle branch block Similar to tracing done 10-01-20 Electronically Signed on 12-09-2020 22:23:26 EDT by Maynor Martin
[2020-12-10] VITALS (22 sets, daily range): BP systolic 87–149; BP diastolic 50–67; O2SAT 83–97
--- NOTE | 2020-12-10 00:44 | REPVR ---
PROCEDURE INFORMATION: Exam: MR Angiogram Head Without Contrast, Arteries Exam date and time: 12/09/2020 12:02 AM Age: 80 years old Clinical indication: Cognitive deficit and other: Transient confusion / falls; Altered mental status TECHNIQUE: Imaging protocol: MR angiogram head without contrast. Exam focused on the arteries. COMPARISON: MRA BRAIN W/O CONTRAST 10/02/2020 4:15 PM FINDINGS: Limitations: Examination is limited by motion artifact. ANTERIOR CIRCULATION: Right internal carotid artery: Evaluation of the petrous segment of the right ICA is limited. Right middle cerebral artery: Grossly patent. Right anterior cerebral artery: Grossly patent. Left internal carotid artery: Evaluation of the petrous and cavernous segment of the left ICA is limited. There is loss of flow signal in the cavernous segment of the left ICA. Severe stenosis of the paraophthalmic segment of the left ICA not be excluded. Left middle cerebral artery: Grossly patent. Left anterior cerebral artery: Grossly patent. POSTERIOR CIRCULATION: Right vertebral artery: Grossly patent. Left vertebral artery: Grossly patent. Basilar artery: No stenosis or occlusion. No aneurysm. Right posterior cerebral artery: No stenosis or occlusion. No aneurysm. Left posterior cerebral artery: No stenosis or occlusion. No aneurysm. IMPRESSION: 1. Severely limited evaluation. 2. Evaluation of the ICA is severely limited. Stenosis or occlusion cannot be excluded. 3. No gross occlusion otherwise. Electronically signed by: Jennifer Mayer On 12/10/2020 00:43:58 AM
--- NOTE | 2020-12-10 00:46 | REPVR ---
PROCEDURE INFORMATION: Exam: MR Head Without Contrast Exam date and time: 12/09/2020 12:02 AM Age: 80 years old Clinical indication: Altered mental status/memory loss and other: Transient confusion / falls TECHNIQUE: Imaging protocol: MR of the head without contrast. COMPARISON: MRI-Brain without Contrast 10/02/2020 4:15 PM FINDINGS: Limitations: Examination is limited by motion artifact. Brain: Small chronic infarcts in the right hawthorne radiata. Diffuse cerebral atrophy. 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 No acute infarct on the diffusion-weighted images. The Mild T2-hyperintense changes in the deep white matter which are nonspecific but suspicious for chronic small vessel ischemic disease. No acute intracranial hemorrhage. Cerebral ventricles: Ventricles are in proportion to the degree of atrophy. Bones/joints: Unremarkable. Paranasal sinuses: Normal as visualized. No acute sinusitis. Mastoid air cells: Normal as visualized. No mastoid effusion. Orbital cavity: Unremarkable. Soft tissues: Unremarkable. Other vasculature: There is expected flow voids in the cerebral arteries. IMPRESSION: 1. No acute infarct. 2. 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 3. Mild T2-hyperintense changes in the deep white matter which are nonspecific but suspicious for chronic small vessel ischemic disease. Electronically signed by: Jennifer Mayer On 12/10/2020 00:46:32 AM
[2020-12-10 01:15] LABS: CPK CREATINE PHOSPHOKINASE 63 U/L (26-192); MB/CK RELATIVE INDEX 1.59 (< OR =4); TROPONIN I < 0.02 NG/ML (< 0.10)
[2020-12-10 05:25] LABS: BASO # 0.1 10^3/uL (0.0-0.2); BASO % 0.7 % (0.0-1.0); EOS # 0.4 10^3/uL (0.0-0.5); EOS % 4.7 % (0.0-3.0); HEMATOCRIT 36.3 % (36.0-47.0); HEMOGLOBIN 10.7 g/dl (12.0-15.5); LYMPH # 1.8 10^3/uL (1.5-5.0); LYMPH % 19.7 % (24.0-44.0); MEAN CORPUSCULAR HEMOGLOBIN 27.6 pg (27.0-33.0); MEAN CORPUSCULAR HGB CONC 29.5 g/dl (32.0-36.5); MEAN CORPUSCULAR VOLUME 93.6 fl (80.0-96.0); MONO # 0.7 10^3/uL (0.0-0.8); MONO % 7.4 % (2.0-8.0); NEUTROPHILS # 6.1 10^3/uL (1.5-8.5); NEUTROPHILS % 66.9 % (36.0-66.0); PLATELET COUNT, AUTOMATED 179 10^3/uL (150-450); RED BLOOD COUNT 3.88 10^6/uL (4.00-5.40); WHITE BLOOD COUNT 9.1 10^3/uL (4.0-10.0)
[2020-12-10 05:51] LABS: CALCIUM LEVEL 8.7 MG/DL (8.8-10.2); CREATININE FOR GFR 1.02 MG/DL (0.55-1.30); GLOMERULAR FILTRATION RATE 55.7 (>39); MAGNESIUM LEVEL 2.2 MG/DL (1.8-2.4); POTASSIUM SERUM 3.8 MEQ/L (3.5-5.1)
[2020-12-10] MEDS: LEVOTHYROXINE 125MCG TABLET (0.125MG) PO SCH (06:19)
[2020-12-10] MEDS: HumaLOG INSULIN (NovoLOG) PER UNIT SC SCH ×4 (07:30→21:00)
[2020-12-10] MEDS ORDERED: CHLORTHALIDONE 25 MG TAB PO SCH (09:00)
[2020-12-10] MEDS: HEPARIN SOD (PORCINE) 5000UNITS/ML 1ML VIAL/SYRINGE SC SCH ×2 (09:25→21:34)
[2020-12-10] MEDS: METOPROLOL SUCC *XL* 25MG TAB (TopROL *XL*) PO SCH (09:28)
[2020-12-10] MEDS: DOCUSATE SODIUM 100MG CAPSULE PO SCH ×2 (09:29→21:34)
[2020-12-10] MEDS: DULoxetine 30 MG CAP (CYMBALTA) PO SCH (09:29)
[2020-12-10] MEDS: GABAPENTIN 100 MG CAP PO SCH (09:29)
[2020-12-10] MEDS: ASPIRIN 81MG ENTERIC TABLET PO SCH (09:29)
[2020-12-10] MEDS: CLOPIDOGREL 75 MG TAB PO SCH (09:29)
[2020-12-10] MEDS: oxyBUTYnin 5 MG TAB PO SCH ×2 (09:29→21:34)
--- NOTE | 2020-12-10 10:22 | IPNPDOC ---
Text Note Date of Service The patient was seen on 12/10/20. NOTE Subjective: Patient is a 80-year-old female who presented to the emergency room after experiencing transient confusion this morning. Patients son is at the bedside providing details of the story. Patient has had a recent stroke in September. She experience left upper extremity weakness. Patient was admitted to hospital service and then transitioned to acute rehabilitation was ultimately discharged home. Patient was started on aspirin and Plavix was found to have carotid artery stenosis for which she has been scheduled for a carotid endarterectomy on December [address] Servin. Patient has reported multiple falls and feeling imbalanced over the last 2 weeks this morning. Patients daughter had reported that she may have seen some facial droop unclear which side, but had confusion for approximately 20 minutes between the hours of 9 AM and 11 AM. Patient came to the ER for further evaluation, however upon arrival, her symptoms had resolved. Patient was admitted to the hospitalist service for further evaluation and treatment Patient was seen and examined at the bedside. Currently patient reports that she feels fine. Denies any chest pain, shortness breath, palpitations. Denies any nausea, vomiting, abdominal pain, diarrhea, or discomfort with urination. Objective: Vitals (See below) General: Lying in bed, appears comfortable, AAOx3 HEENT: NC, AT CVS: +S1S2 Lungs: Fair air entry b/l, no appreciable wheezing, rhonchi or rales Abdomen: Soft, nondistended and nontender Extremities: No appreciable edema this morning, - Calf tenderness Imaging: CXR 12/09: NO ACUTE PULMONARY DISEASE. Cardiomegaly and chronic vascular congestion. CT Head 12/09: Lacunar infarct is seen in the periventricular white matter of the right frontal lobe today, new from October 01, 2020. Its appearance is subacute to chronic. No acute infarction or hemorrhage seen. Moderate generalized volume loss vascular calcification seen. Stable posterior fossa subarachnoid cyst again noted.. Carotid Duplex US 12/09: 50-69% category narrowing in the right internal carotid artery by Doppler velocity criteria. The right ICA peak systolic velocity recorded today is somewhat less than on the prior study. 50-69% category narrowing in the left ICA by Doppler velocity criteria. MRI Brain 12/09: 1. No acute infarct. 2. 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 3. Mild T2-hyperintense changes in the deep white matter which are nonspecific but suspicious for chronic small vessel ischemic disease. MRA Brain 12/09: 1. Severely limited evaluation. 2. Evaluation of the ICA is severely limited. Stenosis or occlusion cannot be excluded. 3. No gross occlusion otherwise. CT abdomen / pelvis 12/09: No acute abdominal or pelvic abnormality. Assessment and Plan: Transient confusion / Left sided weakness / Multiple falls - possibly 2/2 TIA, orthostatic hypotension, decondition, unlikely 2/2 CVA - Patient has had a recent CVA 09/2020 with left arm weakness - Currently physical reveals left-sided weakness - likely from prior CVA - Imaging noted above - Telemetry monitoring / ECHO - Telemetry monitoring / Troponin trend negative x3 - Patient was scheduled for carotid endarterectomy 12/[address] Servin - c/w ASA 81 / Plavix 75 / Atorvastatin 40 HTN - BP well controlled currently - Will continue to hold Amlodipine / Hydralazine / Losartan - c/w Chlorthalidone / Metoprolol s/p LLQ pain - Imaging noted above IDDM2 - c/w ISS DLP - c/w Atorvastatin Chronic COPD - No evidence of exacerbation - Imaging reviewed above - c/w inhaled therapy as ordered GERALD not on CPAP Hx of Graves s/p Radiation; now hypothyroidism - c/w Levothyroxine Bladder CA s/p resection - c/w Oxybutynin Anxiety - c/w Alprazolam PRN RLS / Chronic pain / Fibromyalgia - c/w Ropinirole / Duloxetine / Gabapentin Nicotine dependence - Advised smoking cessation - c/w Nicotine patch DVT prophylaxis - c/w Heparin Disposition: - Will continued to work with physical therapy - Anticipate discharge within 24-48 hours VSRandolph, I+O VS, Randolph, I+O Laboratory Tests 12/09/20 12:53 12/10/20 05:04 Vital Signs Date Time Temp Pulse Resp B/P (MAP) Pulse Ox O2 Delivery O2 Flow Rate FiO2 12/10/20 09:28 68 130/53 12/10/20 08:00 97.1 21 97 Room Air I&O- Last 24 Hours up to 6 AM 12/10/20 06:00 Intake Total 500 ml Balance 500 ml MATTEO GILLIAM MD Dec 10, 2020 10:22
[2020-12-10] MEDS: BUDESONIDE 180MCG INHALER (PULMICORT FLEXHALER) INH SCH ×2 (10:34→20:07)
[2020-12-10] MEDS: FLUTICASONE PROP 0.05% NASAL SPRAY 16 GM (FLONASE) SCH ×2 (12:33→21:35)
[2020-12-10] MEDS ORDERED: POLYVINYL ALCOHOL OPHTH SOLN 15 ML(LIQUITEARS) OU PRN ×2 (18:00→18:10)
[2020-12-10] MEDS ORDERED: VANICREAM MOISTURIZING SKIN CREAM 113GM TUBE TOP PRN (18:10)
[2020-12-10] MEDS: ATORVASTATIN 20 MG TAB PO SCH (21:34)
[2020-12-10] MEDS: ALPRAZolam 0.5 MG TAB PO SCH (21:34)
[2020-12-10] MEDS: rOPINIRole 1MG TAB PO SCH (21:34)
[2020-12-10] MEDS: LEVEMIR (INSULIN DETEMIR) 1 UNITS/0.01ML SC SCH (21:43)
[2020-12-11] VITALS (7 sets, daily range): BP systolic 102–152; BP diastolic 50–70
[2020-12-11] MEDS: LEVOTHYROXINE 125MCG TABLET (0.125MG) PO SCH (05:49)
[2020-12-11 05:54] LABS: BASO # 0.1 10^3/uL (0.0-0.2); BASO % 0.6 % (0.0-1.0); EOS # 0.4 10^3/uL (0.0-0.5); EOS % 4.9 % (0.0-3.0); HEMATOCRIT 35.6 % (36.0-47.0); HEMOGLOBIN 10.7 g/dl (12.0-15.5); LYMPH # 1.9 10^3/uL (1.5-5.0); LYMPH % 23.2 % (24.0-44.0); MEAN CORPUSCULAR HEMOGLOBIN 27.8 pg (27.0-33.0); MEAN CORPUSCULAR HGB CONC 30.1 g/dl (32.0-36.5); MEAN CORPUSCULAR VOLUME 92.5 fl (80.0-96.0); MONO # 0.6 10^3/uL (0.0-0.8); NEUTROPHILS # 5.2 10^3/uL (1.5-8.5); NEUTROPHILS % 63.7 % (36.0-66.0); PLATELET COUNT, AUTOMATED 181 10^3/uL (150-450); RED BLOOD COUNT 3.85 10^6/uL (4.00-5.40); WHITE BLOOD COUNT 8.1 10^3/uL (4.0-10.0)
[2020-12-11 06:13] LABS: CALCIUM LEVEL 8.5 MG/DL (8.8-10.2); CREATININE FOR GFR 0.98 MG/DL (0.55-1.30); GLOMERULAR FILTRATION RATE 58.3 (>39); MAGNESIUM LEVEL 2.1 MG/DL (1.8-2.4); POTASSIUM SERUM 4.1 MEQ/L (3.5-5.1)
[2020-12-11] MEDS: BUDESONIDE 180MCG INHALER (PULMICORT FLEXHALER) INH SCH ×2 (08:02→20:14)
[2020-12-11] MEDS: DOCUSATE SODIUM 100MG CAPSULE PO SCH ×2 (08:53→22:08)
[2020-12-11] MEDS: HumaLOG INSULIN (NovoLOG) PER UNIT SC SCH ×4 (08:53→22:10)
[2020-12-11] MEDS: METOPROLOL SUCC *XL* 25MG TAB (TopROL *XL*) PO SCH (08:53)
[2020-12-11] MEDS: HEPARIN SOD (PORCINE) 5000UNITS/ML 1ML VIAL/SYRINGE SC SCH ×2 (08:53→22:09)
[2020-12-11] MEDS: CLOPIDOGREL 75 MG TAB PO SCH (08:53)
[2020-12-11] MEDS: DULoxetine 30 MG CAP (CYMBALTA) PO SCH (08:53)
[2020-12-11] MEDS: LEVEMIR (INSULIN DETEMIR) 1 UNITS/0.01ML SC SCH ×2 (08:53→22:09)
[2020-12-11] MEDS: GABAPENTIN 100 MG CAP PO SCH (08:54)
[2020-12-11] MEDS: ASPIRIN 81MG ENTERIC TABLET PO SCH (08:54)
[2020-12-11] MEDS: oxyBUTYnin 5 MG TAB PO SCH ×2 (08:54→22:08)
[2020-12-11] MEDS: FLUTICASONE PROP 0.05% NASAL SPRAY 16 GM (FLONASE) SCH ×2 (08:55→22:10)
--- NOTE | 2020-12-11 10:55 | IPNPDOC ---
Text Note Date of Service The patient was seen on 12/11/20. NOTE Subjective: Patient is a 80-year-old female who presented to the emergency room after experiencing transient confusion this morning. Patients son is at the bedside providing details of the story. Patient has had a recent stroke in September. She experience left upper extremity weakness. Patient was admitted to hospital service and then transitioned to acute rehabilitation was ultimately discharged home. Patient was started on aspirin and Plavix was found to have carotid artery stenosis for which she has been scheduled for a carotid endarterectomy on December [address] Servin. Patient has reported multiple falls and feeling imbalanced over the last 2 weeks this morning. Patients daughter had reported that she may have seen some facial droop unclear which side, but had confusion for approximately 20 minutes between the hours of 9 AM and 11 AM. Patient came to the ER for further evaluation, however upon arrival, her symptoms had resolved. Patient was admitted to the hospitalist service for further evaluation and treatment Patient was seen and examined at the bedside. Patient reports that she has had an uneventful night, other than the frequent blood pressure checks and blood work. Patient denies any chest pain, shortness of breath, palpitations, nausea, vomiting, abdominal pain, diarrhea. Patient does report increased urination has been ongoing problem for her over the last 1 year Objective: Vitals (See below) General: Patient is lying in bed, appears comfortable, not in any acute distress, is awake, alert and oriented 3 HEENT: Normocephalic and atraumatic CVS: +S1S2 Lungs: There appears to be fair air entry bilaterally without evidence of crackles, wheezing or rhonchi Abdomen: Abdomen is soft without any appreciated tenderness or distention Extremities: No edema is appreciated at lower extremities Imaging: CXR 12/09: NO ACUTE PULMONARY DISEASE. Cardiomegaly and chronic vascular congestion. CT Head 12/09: Lacunar infarct is seen in the periventricular white matter of the right frontal lobe today, new from October 01, 2020. Its appearance is subacute to chronic. No acute infarction or hemorrhage seen. Moderate generalized volume loss vascular calcification seen. Stable posterior fossa subarachnoid cyst again noted.. Carotid Duplex US 12/09: 50-69% category narrowing in the right internal carotid artery by Doppler velocity criteria. The right ICA peak systolic velocity recorded today is somewhat less than on the prior study. 50-69% category narrowing in the left ICA by Doppler velocity criteria. MRI Brain 12/09: 1. No acute infarct. 2. 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 3. Mild T2-hyperintense changes in the deep white matter which are nonspecific but suspicious for chronic small vessel ischemic disease. MRA Brain 12/09: 1. Severely limited evaluation. 2. Evaluation of the ICA is severely limited. Stenosis or occlusion cannot be excluded. 3. No gross occlusion otherwise. CT abdomen / pelvis 12/09: No acute abdominal or pelvic abnormality. Assessment and Plan: Transient confusion / Left sided weakness / Multiple falls - possibly 2/2 TIA, orthostatic hypotension, decondition, unlikely 2/2 CVA - Patient has had a recent CVA 09/2020 with left arm weakness - Physical with left-sided weakness - likely from prior CVA - Imaging noted above - Will DC telemetry - Patient was scheduled for carotid endarterectomy 12/[address] Servin - c/w ASA 81 / Plavix 75 / Atorvastatin 40 HTN - BP well controlled currently - Orthostatic vitals were positive; s/p Chlorthalidone - Will discontinue Amlodipine / Hydralazine / Losartan / Chlorthalidone - c/w Metoprolol s/p LLQ pain - Imaging noted above IDDM2 - c/w ISS DLP - c/w Atorvastatin Chronic COPD - No evidence of exacerbation - Chronic hypoxic respiratory failure. Patient uses 2 L of oxygen at home, but is noncompliant - Imaging reviewed above - c/w inhaled therapy as ordered GERALD not on CPAP Hx of Graves s/p Radiation; now hypothyroidism - c/w Levothyroxine Bladder CA s/p resection - c/w Oxybutynin Anxiety - c/w Alprazolam PRN RLS / Chronic pain / Fibromyalgia - c/w Ropinirole / Duloxetine / Gabapentin Nicotine dependence - Advised smoking cessation - c/w Nicotine patch DVT prophylaxis - c/w Heparin Disposition: - c/w PT - anticipate DC tomorrow VS,Randolph, I+O VS, Randolph, I+O Laboratory Tests 12/11/20 05:30 Vital Signs Date Time Temp Pulse Resp B/P (MAP) Pulse Ox O2 Delivery O2 Flow Rate FiO2 12/11/20 08:53 71 127/57 12/11/20 08:00 99.0 18 94 Nasal Cannula 2.0 I&O- Last 24 Hours up to 6 AM 12/11/20 05:59 Intake Total 0 ml Output Total 150 ml Balance -150 ml MATTEO GILLIAM MD Dec 11, 2020 10:55
[2020-12-11] MEDS: rOPINIRole 1MG TAB PO SCH (22:08)
[2020-12-11] MEDS: ATORVASTATIN 20 MG TAB PO SCH (22:08)
[2020-12-11] MEDS: ALPRAZolam 0.5 MG TAB PO SCH (22:08)
[2020-12-12] VITALS: BP_SYST 106; BP_SYST 120; BP_SYST 130; BP_DIAS 50; BP_DIAS 52; BP_DIAS 60
[2020-12-12] MEDS: LEVOTHYROXINE 125MCG TABLET (0.125MG) PO SCH (05:30)
[2020-12-12 06:00] VITALS: BP 139/54
[2020-12-12 06:11] LABS: BASO # 0.1 10^3/uL (0.0-0.2); BASO % 0.6 % (0.0-1.0); EOS # 0.4 10^3/uL (0.0-0.5); EOS % 4.4 % (0.0-3.0); HEMATOCRIT 35.6 % (36.0-47.0); HEMOGLOBIN 10.7 g/dl (12.0-15.5); LYMPH # 1.9 10^3/uL (1.5-5.0); LYMPH % 23.1 % (24.0-44.0); MEAN CORPUSCULAR HEMOGLOBIN 28.2 pg (27.0-33.0); MEAN CORPUSCULAR HGB CONC 30.1 g/dl (32.0-36.5); MEAN CORPUSCULAR VOLUME 93.7 fl (80.0-96.0); MONO # 0.6 10^3/uL (0.0-0.8); MONO % 7.5 % (2.0-8.0); NEUTROPHILS # 5.2 10^3/uL (1.5-8.5); NEUTROPHILS % 63.8 % (36.0-66.0); PLATELET COUNT, AUTOMATED 150 10^3/uL (150-450); WHITE BLOOD COUNT 8.1 10^3/uL (4.0-10.0)
[2020-12-12 06:26] LABS: CALCIUM LEVEL 8.4 MG/DL (8.8-10.2); CREATININE FOR GFR 1.03 MG/DL (0.55-1.30); MAGNESIUM LEVEL 2.2 MG/DL (1.8-2.4); POTASSIUM SERUM 3.8 MEQ/L (3.5-5.1)
[2020-12-12] MEDS: BUDESONIDE 180MCG INHALER (PULMICORT FLEXHALER) INH SCH (08:00)
[2020-12-12] MEDS: HumaLOG INSULIN (NovoLOG) PER UNIT SC SCH ×2 (08:44→13:09)
[2020-12-12] MEDS: LEVEMIR (INSULIN DETEMIR) 1 UNITS/0.01ML SC SCH (08:44)
[2020-12-12 08:45] VITALS: BP 139/54
[2020-12-12] MEDS: DOCUSATE SODIUM 100MG CAPSULE PO SCH (08:45)
[2020-12-12] MEDS: oxyBUTYnin 5 MG TAB PO SCH (08:45)
[2020-12-12] MEDS: HEPARIN SOD (PORCINE) 5000UNITS/ML 1ML VIAL/SYRINGE SC SCH (08:45)
[2020-12-12] MEDS: METOPROLOL SUCC *XL* 25MG TAB (TopROL *XL*) PO SCH (08:45)
[2020-12-12] MEDS: ASPIRIN 81MG ENTERIC TABLET PO SCH (08:45)
[2020-12-12] MEDS: CLOPIDOGREL 75 MG TAB PO SCH (08:46)
[2020-12-12] MEDS: GABAPENTIN 100 MG CAP PO SCH (08:46)
[2020-12-12] MEDS: DULoxetine 30 MG CAP (CYMBALTA) PO SCH (08:46)
[2020-12-12] MEDS: FLUTICASONE PROP 0.05% NASAL SPRAY 16 GM (FLONASE) SCH (09:00)
--- NOTE | 2020-12-12 14:15 | DS.PDOC ---
Discharge Summary General Date of Admission Dec 09, 2020 at 16:41 Date of Discharge December 12, 2020 Primary Care Physician: RANDELL AGUILAR DO Attending Physician: BECKI MATUTE MD Discharge Summary PROCEDURES PERFORMED DURING STAY: None. ADMITTING DIAGNOSES: Transient confusion Left sided weakness HTN DM DLP COPD GERALD Hx of Graves s/p radiation Acquired hypothyroidism 2/2 above Bladder CA s/p resection Anxiety RLS Chronic pain / Fibromyalgia DISCHARGE DIAGNOSES: Left sided weakness HTN DM DLP COPD GERALD Hx of Graves s/p radiation Acquired hypothyroidism 2/2 above Bladder CA s/p resection Anxiety RLS Chronic pain / Fibromyalgia COMPLICATIONS/CHIEF COMPLAINT: Weakness. HISTORY OF PRESENT ILLNESS: 80 year old female who presented to the ED after an episode of transient confusion earlier that morning, accompanied by her son who provided much of the history. Reportedly patient had about 20 minutes of confusion sometime between 9am and 11am that morning. Her symptoms resolved prior to arrive to the ER. Patient has recent history of stroke in September 2020 with persistent left upper extremity weakness. At that time she was started on aspirin and plavix. She also required acute rehab prior to return home. She is scheduled for carotid endarterectomy on 12/23/[address] Morales. Patient has also noticed frequent falls since her stroke, especially due to loss of balance when she gets up in the morning. She denies lightheadedness or dizziness. Yolanda nino was admitted to the hospital for rule out of acute CVA and PT evaluation. HOSPITAL COURSE: Patient was admitted to the hospital and continued on her home aspirin, plavix and statin. Further work up did not reveal any acute CVA. Patient was noted to have blood pressors on the low end of normal and some of her home blood pressure medications were held. Patient was found to have well controlled blood pressure on just her home metoprolol. Home amlodipine, hydralazine, losartan, and chlorthalidone were discontinued. Patient was evaluated by PT and OT prior to discharge, who recommended that she continue with home PT/OT services. DISCHARGE MEDICATIONS: Please see below. ALLERGIES: Please see below. PHYSICAL EXAMINATION ON DISCHARGE: VITAL SIGNS: Please see below. GENERAL: Alert, comfortable, in no acute distress HEENT: Normocephalic, atraumatic, sclera anicteric, moist mucous membranes NECK: Supple, trachea midline, no lymphadenopathy, no JVD CARDIOVASCULAR: Regular rate and rhythm, normal S1 and S2. No murmurs, rubs, or gallops RESPIRATORY: Clear to auscultation bilaterally with equal air entry bilaterally. No wheezing, rhonchi, or rales. ABDOMEN: Soft, nontender, nondistended, bowel sounds present EXTREMITIES: No cyanosis or edema. Pulses 2+/4 in bilateral upper and lower extremities NEUROLOGIC: Alert and oriented x3 to person, place and time. PSYCHIATRIC: Mood and affect appropriate LABORATORY DATA: Please see below. IMAGING: -CXR 12/09: NO ACUTE PULMONARY DISEASE. Cardiomegaly and chronic vascular congestion. -CT Head 12/09: Lacunar infarct is seen in the periventricular white matter of the right frontal lobe today, new from October 01, 2020. Its appearance is subacute to chronic. No acute infarction or hemorrhage seen. Moderate generalized volume loss vascular calcification seen. Stable posterior fossa subarachnoid cyst again noted. -Carotid Duplex US 12/09: 50-69% category narrowing in the right internal carotid artery by Doppler velocity criteria. The right ICA peak systolic velocity recorded today is somewhat less than on the prior study. 50-69% category narrowing in the left ICA by Doppler velocity criteria. -MRI Brain 12/09: 1. No acute infarct. 2. 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 3. Mild T2-hyperintense changes in the deep white matter which are nonspecific but suspicious for chronic small vessel ischemic disease. -MRA Brain 12/09: 1. Severely limited evaluation. 2. Evaluation of the ICA is severely limited. Stenosis or occlusion cannot be excluded. 3. No gross occlusion otherwise. -CT abdomen / pelvis 12/09: No acute abdominal or pelvic abnormality. PROGNOSIS: Fair ACTIVITY: As tolerated. DIET: Consistent carbohydrate, 2 gram sodium restriction DISCHARGE PLAN: Discharge home, follow up with PCP, continue home PT, keep scheduled appointment with Dr. Morales for carotid endarterectomy DISPOSITION: HOME DISCHARGE INSTRUCTIONS: 1. Follow up with your PCP in 7-10 days 2. If your symptoms return please call your PCP or return to the ED for further evaluation ITEMS TO FOLLOWUP ON ON OUTPATIENT: 1. HTN management: We have stopped multiple blood pressure medications with good BP control. Will need continued follow up to assure her blood pressure remains well controlled. DISCHARGE CONDITION: Stable. TIME SPENT ON DISCHARGE: 35 minutes. Vital Signs/I&Os Vital Signs Date Time Temp Pulse Resp B/P (MAP) Pulse Ox O2 Delivery O2 Flow Rate FiO2 12/12/20 08:45 66 139/54 12/12/20 06:00 98.1 18 91 Nasal Cannula 2.0 I&O- Last 24 Hours up to 6 AM 12/12/20 05:59 Intake Total 1140 ml Output Total 400 ml Balance 740 ml Laboratory Data Labs 24H Laboratory Tests 2 12/11/20 16:46: Bedside Glucose (Misc Panel) 258H 12/11/20 20:50: Bedside Glucose (Misc Panel) 326H 12/12/20 05:38: Immature Granulocyte % (Auto) 0.6, Neutrophils (%) (Auto) 63.8, Lymphocytes (%) (Auto) 23.1L, Monocytes (%) (Auto) 7.5, Eosinophils (%) (Auto) 4.4H, Basophils (%) (Auto) 0.6, Neutrophils # (Auto) 5.2, Lymphocytes # (Auto) 1.9, Monocytes # (Auto) 0.6, Eosinophils # (Auto) 0.4, Basophils # (Auto) 0.1, Nucleated Red Blood Cells % (auto) 0.0, Anion Gap 5L, Glomerular Filtration Rate 55.0, Calcium Level 8.4L, Magnesium Level 2.2 12/12/20 11:50: Bedside Glucose (Misc Panel) 379H CBC/BMP Laboratory Tests 12/12/20 05:38 FSBS Laboratory Tests Test 12/11/20 16:46 12/11/20 20:50 12/12/20 11:50 Range/Units Bedside Glucose (Misc Panel) 258 326 379 83-110 MG/DL Discharge Medications Scheduled Alprazolam (Xanax) 1 Mg Tablet, 1 MG PO QHS, (Reported) Aspirin (Aspirin EC) 81 Mg Tablet.dr, 81 MG PO DAILY Atorvastatin Calcium (Atorvastatin Calcium) 40 Mg Tablet, 40 MG PO QPM Budesonide (Pulmicort Flexhaler) 180 Mcg Aer.pow.ba, 2 PUFF INH RBID Clopidogrel Bisulfate (Clopidogrel) 75 Mg Tablet, 75 MG PO DAILY Duloxetine Hcl (Duloxetine HCl) 60 Mg Capsule.dr, 60 MG PO DAILY Fluticasone Propionate (Flonase Allergy Relief) 9.9 Ml [place].susp, 50 MCG NA BID, (Reported) Gabapentin (Gabapentin) 100 Mg Capsule, 100 MG PO DAILY Insulin NPH Hum/Reg Insulin Hm (Novolin 70-30 100 Unit/ml Vial) 100 Unit/1 Ml Vial, 40 UNITS SC BID, (Reported) Levothyroxine Sodium (Synthroid) 125 Mcg Tablet, 125 MCG PO DAILY Metoprolol Succinate (Toprol Xl) 25 Mg Tab.er.24h, 25 MG PO DAILY, (Reported) Oxybutynin Chloride (Oxybutynin Chloride) 5 Mg Tablet, 5 MG PO BID Ropinirole HCl (Ropinirole HCl) 1 Mg Tablet, 1 MG PO QHS, (Reported) Allergies Coded Allergies: Penicillins (Verified Allergy, Intermediate, rash, 12/09/20) Tetracyclines (Verified Allergy, Intermediate, rash, 12/09/20) Sulfa (Sulfonamide Antibiotics) (Verified Adverse Reaction, Mild, mouth sores, 12/09/20) GME ATTESTATION GME ATTESTATION My faculty preceptor for this patient encounter was physically present during the encounter and was fully available. All aspects of the patient interview, examination, medical decision making process, and medical care plan development were reviewed and approved by the faculty preceptor. The faculty preceptor is aware and concurs with the plan as stated in the body of this note and will attest to such by his/her cosignature. ATTENDING NOTE I, Becki Matute, have independently examined this patient and performed my own physical exam, as well as reviewed the documentation and edited where necessary. I have discussed in detail with the resident / student the findings and plan of treatment as documented by the resident / student and edited their note. I agree with their findings and treatment plan and have edited their documentation. I will continue to follow the patient during this hospital stay. Time spent on discharge 35 minutes LAURI SUN D.O. Dec 12, 2020 14:06 BECKI MATUTE MD Dec 12, 2020 15:07
== END 2020-12-12 17:03 | disposition home or self-care (01) | DRG 57 ==
LOC: M ED 12:06 → EDBD 12:06 → EDSEX 12:06 → M ED INP 16:41 → ENRESERV 18:32 → M PCU 21:23 → M MSPAV 12-11 11:44
PROVIDERS: ADMIT Internal Medicine; ATTEND Internal Medicine
DX: I69.354 Hemiplegia and hemiparesis following cerebral infarction affecting left non-dominant side (principal); E11.9 Type 2 diabetes mellitus without complications; J44.9 Chronic obstructive pulmonary disease, unspecified; I10 Essential (primary) hypertension; I95.1 Orthostatic hypotension; I65.21 Occlusion and stenosis of right carotid artery; R29.6 Repeated falls; R41.0 Disorientation, unspecified; G47.33 Obstructive sleep apnea (adult) (pediatric); M79.7 Fibromyalgia; F41.9 Anxiety disorder, unspecified; Z92.3 Personal history of irradiation; G25.81 Restless legs syndrome; Z85.51 Personal history of malignant neoplasm of bladder; Z79.82 Long term (current) use of aspirin; Z79.899 Other long term (current) drug therapy; Z88.0 Allergy status to penicillin; Z88.2 Allergy status to sulfonamides; Z88.8 Allergy status to other drugs, medicaments and biological substances; F17.200 Nicotine dependence, unspecified, uncomplicated

== ENCOUNTER 2020-12-19 17:49 | Inpatient (IN) | payer MEDICARE, BC ==
[~2020-12-19] VITALS: Ht 154.9 cm; Wt 92.9 kg
[~2020-12-19 17:49] MED LIST changes: -ASPI81TA26 PO; -LEVO125T4 PO; -PULM90IN INH
--- NOTE | 2020-12-19 18:39 | REPVR ---
PROCEDURE INFORMATION: Exam: CT Cervical Spine Without Contrast Exam date and time: 12/19/2020 6:13 PM Age: 80 years old Clinical indication: Injury or trauma; Fall; Blunt trauma TECHNIQUE: Imaging protocol: Computed tomography images of the cervical spine without contrast. Radiation optimization: All CT scans at this facility use at least one of these dose optimization techniques: automated exposure control; mA and/or kV adjustment per patient size (includes targeted exams where dose is matched to clinical indication); or iterative reconstruction. COMPARISON: No relevant prior studies available. FINDINGS: Bones/joints: See "Discs/Spinal canal/Neural foramina" finding. Discs/Spinal canal/Neural foramina: Multilevel degenerative disc disease. Fusion of C4, C5 and C6 vertebra. There is multilevel uncovertebral and facet hypertrophy with neural foramina narrowing. Mild spinal canal stenosis at C3-C4 with disc osteophyte complex. Lungs: Lung apices are normal. Soft tissues: Unremarkable. IMPRESSION: No acute abnormality. Electronically signed by: Filipe Contreras On 12/19/2020 18:40:05 PM
--- NOTE | 2020-12-19 18:42 | REPVR ---
PROCEDURE INFORMATION: Exam: CT Head Without Contrast Exam date and time: 12/19/2020 6:13 PM Age: 80 years old Clinical indication: Injury or trauma; Fall; Blunt trauma (contusions or hematomas) TECHNIQUE: Imaging protocol: Computed tomography of the head without contrast. Radiation optimization: All CT scans at this facility use at least one of these dose optimization techniques: automated exposure control; mA and/or kV adjustment per patient size (includes targeted exams where dose is matched to clinical indication); or iterative reconstruction. COMPARISON: CT Head without contrast 12/09/2020 2:58 PM FINDINGS: Brain: Lukasz cisterna magna. The boss-white differentiation is maintained. No hemorrhage. No edema. There are mild periventricular and subcortical lucencies consistent with chronic microvascular ischemic changes. Cerebral ventricles: No ventriculomegaly. Bones/joints: Unremarkable. No acute fracture. Paranasal sinuses: Visualized sinuses are unremarkable. No fluid levels. Mastoid air cells: Visualized mastoid air cells are well aerated. Soft tissues: Unremarkable. IMPRESSION: No acute intracranial abnormality. Chronic microvascular ischemic changes. Electronically signed by: Filipe Contreras On 12/19/2020 18:43:16 PM
[2020-12-19 20:47] LABS: BASO # 0.1 10^3/uL (0.0-0.2); BASO % 0.5 % (0.0-1.0); EOS # 0.4 10^3/uL (0.0-0.5); HEMATOCRIT 37.4 % (36.0-47.0); HEMOGLOBIN 11.2 g/dl (12.0-15.5); LYMPH # 1.7 10^3/uL (1.5-5.0); LYMPH % 16.5 % (24.0-44.0); MEAN CORPUSCULAR HEMOGLOBIN 28.2 pg (27.0-33.0); MEAN CORPUSCULAR HGB CONC 29.9 g/dl (32.0-36.5); MEAN CORPUSCULAR VOLUME 94.2 fl (80.0-96.0); MONO # 0.7 10^3/uL (0.0-0.8); MONO % 7.1 % (2.0-8.0); NEUTROPHILS # 7.2 10^3/uL (1.5-8.5); NEUTROPHILS % 71.1 % (36.0-66.0); PLATELET COUNT, AUTOMATED 204 10^3/uL (150-450); RED BLOOD COUNT 3.97 10^6/uL (4.00-5.40); WHITE BLOOD COUNT 10.2 10^3/uL (4.0-10.0)
[2020-12-19 20:59] LABS: INR 0.98; PROTHROMBIN TIME 13.2 SECONDS (12.5-14.3)
[2020-12-19 21:10] LABS: BLOOD UREA NITROGEN 24 MG/DL (7-18); CALCIUM LEVEL 8.5 MG/DL (8.8-10.2); CARBON DIOXIDE LEVEL 33 MEQ/L (21-32); CHLORIDE LEVEL 102 MEQ/L (98-107); CK-MB VALUE MASS 2.4 NG/ML (<3.6); CPK CREATINE PHOSPHOKINASE 78 U/L (26-192); ETHYL ALCOHOL (ETHANOL) < 0.003 % (0.000-0.010); GLUCOSE, FASTING 285 MG/DL (70-100); MB/CK RELATIVE INDEX 3.08 (< OR =4); POTASSIUM SERUM 4.3 MEQ/L (3.5-5.1); SODIUM LEVEL 138 MEQ/L (136-145); TROPONIN I 0.02 NG/ML (< 0.10)
--- NOTE | 2020-12-19 21:18 | REPVR ---
PROCEDURE INFORMATION: Exam: XR Chest Exam date and time: 12/19/2020 8:32 PM Age: 80 years old Clinical indication: Other: Syncope; Additional info: Syncope/near-syncope TECHNIQUE: Imaging protocol: XR of the chest Views: 1 view. COMPARISON: [facility] PORTABLE CHEST X-RAY 12/09/2020 1:09 PM FINDINGS: Lungs: There is an increase in interstitial markings bilaterally, which is nonspecific. Possible etiologies include interstitial edema and atypical infection. Prominence of the pulmonary vascular markings. Similar findings are visualized on the prior study. Left basilar atelectatic change. Infiltrate within the left lower lung zone cannot be excluded. Pleural spaces: No pleural effusion. No pneumothorax. Heart/Mediastinum: The cardiac silhouette appears enlarged. Vasculature: There is atherosclerotic calcification of the aortic arch. Diaphragm: Mild elevation of the right hemidiaphragm. Bones/joints: Hypertrophic degenerative changes are noted involving the spine. IMPRESSION: 1. The cardiac silhouette appears enlarged. 2. There is an increase in interstitial markings bilaterally, which is nonspecific. Possible etiologies include interstitial edema and atypical infection. Prominence of the pulmonary vascular markings. Similar findings are visualized on the prior study. 3. Left basilar atelectatic change. Infiltrate within the left lower lung zone cannot be excluded. Clinical correlation is recommended. 4. Mild elevation of the right hemidiaphragm. Electronically signed by: Murtaza Muir On 12/19/2020 21:19:05 PM
[2020-12-19] MEDS ORDERED: NS 1,000 ML IV ONE (21:30)
[2020-12-19 23:18] LABS: AMPHETAMINES LEVEL URINE NEGATIVE (NEGATIVE); BARBITURATES URINE NEGATIVE (NEGATIVE); BENZODIAZEPINES URINE POSITIVE (NEGATIVE); CANNABINOIDS URINE NEGATIVE (NEGATIVE); COCAINE METABOLITE URINE NEGATIVE (NEGATIVE); METHADONE URINE NEGATIVE (NEGATIVE); OPIATES URINE NEGATIVE (NEGATIVE); PHENCYCLIDINE URINE NEGATIVE (NEGATIVE)
[2020-12-20] MEDS ORDERED: OXYB5TAB10 PO (00:33)
[2020-12-20] MEDS ORDERED: ASPI81TA26 PO (00:33)
[2020-12-20] MEDS ORDERED: GABA-1171 PO (00:33)
[2020-12-20] MEDS ORDERED: CLOP75TA2 PO (00:33)
[2020-12-20] MEDS ORDERED: ATOR40TA75 PO (00:33)
[2020-12-20] MEDS ORDERED: PULM90IN INH (00:33)
[2020-12-20] MEDS ORDERED: DULO1CAP6 PO (00:33)
[2020-12-20] MEDS ORDERED: LEVO125T4 PO (00:33)
[2020-12-20] MEDS ORDERED: rOPINIRole 1MG TAB PO ONE (02:06)
[2020-12-20] MEDS ORDERED: ACETAMINOPHEN TAB 650MG DOSE (2X325MG) PO PRN (03:15)
[2020-12-20] MEDS ORDERED: MAALOX 30 ML SUSP *UDC PO PRN (03:15)
[2020-12-20] MEDS ORDERED: MOM 30ML SUSPENSION UDC PO PRN (03:15)
--- NOTE | 2020-12-20 03:27 | HPEPDOC ---
[facility] Medical History & Physical Date of Admission Dec 20, 2020 Date of Service: Dec 20, 2020 History and Physical CHIEF COMPLAINT: fall HISTORY OF PRESENT ILLNESS: Patient is a 80-year-old female with a history of CVA in 10/06, hypertension, dyslipidemia, type 2 diabetes, COPD, GERALD not on CPAP, history of Graves' disease and bladder cancer, presenting to the ER with her son after numerous episodes of losing her balance with dizziness resulting in a fall leading to minor head injury. Patient was recently treated for a stroke in September and has been admitted in early November for similar symptoms, which included numerous falling and loss of balance. CT of the head was obtained in the ER which showed no acute intracranial abnormality. Workup in the ER was positive for orthostasis, which improved but did not completely resolve after a liter of fluid. Patient feels too weak, was alone and her family are concerned about her safety living at home and her friend that she cannot care for herself. Patient will be admitted for dizziness and unsteady gait. PAST MEDICAL HISTORY: CVA (09/2020) HTN DLP IDDM2 COPD GERALD not on CPAP Hx of Graves s/p Radiation; now hypothyroidism Bladder CA s/p resection Anxiety RLS / Chronic pain / Fibromyalgia Nicotine dependence PAST SURGICAL HISTORY: Thyroid radiation Cholecystectomy Bladder stent Back surgery Bilateral foot bunionectomy Right toe surgery Bilateral carpal tunnel release Bilateral cataract Cystoscopy 09/2019 SOCIAL HISTORY: - Denies the use of alcohol or illicit drugs; patient reports that she is a smoker of greater than 60 years - Denies recent travel or sick contacts - Lives alone but her son lives next door - Patient uses a walker at baseline - Occupation FAMILY HISTORY: reviewed with patient, reported no pertinent history ALLERGIES: Please see below. REVIEW OF SYSTEMS: 10 point ROS was conducted, relevant findings are noted in the HPI HOME MEDICATIONS: Please see below. PHYSICAL EXAMINATION: VITAL SIGNS: please see below General: NAD, comfortable HEENT: PERRLA, EOMI, sclerae clear Neck: supple, normal ROM, no JVD Respiratory: lungs CTAB, no wheeze, no rales, no crackles CVS: RRR, normal S1, S2, no murmurs Abdo: soft, no masses, no hepatosplenomegaly, BS+, no rebound tenderness Extremities: no edema, pulses 2+ MSK: no joint deformities, normal ROM Neuro: no focal neuro deficits, moving all 4 extremities, CN2-12 intact. Strength 5/5 in all 4 extremities. No nystagmus. Psych: calm, cooperative, AAO x 3 LABORATORY DATA: See below. IMAGING: CT head without contrast on 12/19/20 No acute intracranial abnormality. Chronic microvascular ischemic changes. CT c-spine (12/19/20): No acute abnormality. CXR (12/19/20): 1. The cardiac silhouette appears enlarged. 2. There is an increase in interstitial markings bilaterally, which is nonspecific. Possible etiologies include interstitial edema and atypical infection. Prominence of the pulmonary vascular markings. Similar findings are visualized on the prior study. 3. Left basilar atelectatic change. Infiltrate within the left lower lung zone cannot be excluded. Clinical correlation is recommended. 4. Mild elevation of the right hemidiaphragm. MICROBIOLOGY: Please see below. ASSESSMENT: 80-year-old female with a history of CVA in 10/06, hypertension, dyslipidemia, type 2 diabetes, COPD, GERALD not on CPAP, history of Graves' disease and bladder cancer. Patient admitted for workup of dizziness/orthostatic hypotension. CT head negative for acute CVA. . PLAN: Fall/dizziness possibly 2/2 orthostatic hypotension, deconditioning, recent CVA, but no acute event - check orthostats q8h - PT/OT ordered - c/w ASA 81 / Plavix 75 / Atorvastatin 40 Hx of CVA - has 70% stenosis in R carotid - carotid endarterectomy scheduled with Dr. Servin for 12/22/20. - c/w ASA 81 / Plavix 75 / Atorvastatin 40 HTN - C/w Amlodipine / Hydralazine / Losartan - c/w Chlorthalidone / Metoprolol Questionable pneumonia on CXR - patient is afebrile, without cough - mild leukocytosis, WCB 10.2 - will not start antibiotics at this time. IDDM2 - ISS AC and HS - hypoglycemic precautions. DLP - c/w Atorvastatin Chronic COPD - No evidence of exacerbation - Imaging reviewed above - Continue with inhaled therapy as ordered GERALD not on CPAP Hx of Graves s/p Radiation; now hypothyroidism - c/w Levothyroxine Bladder CA s/p resection - c/w Oxybutynin Anxiety - c/w Alprazolam PRN RLS / Chronic pain / Fibromyalgia - c/w Ropinirole / Duloxetine / Gabapentin Nicotine dependence - Advised smoking cessation - Will start Nicotine patch DVT prophylaxis - Will start lovenox Dispo: pending clinical improvement. Vital Signs Vital Signs Date Time Temp Pulse Resp B/P (MAP) Pulse Ox O2 Delivery O2 Flow Rate FiO2 12/20/20 03:15 97.9 77 18 164/74 (104) 92 Room Air Laboratory Data Labs 24H Laboratory Tests 2 12/19/20 20:26: Prothrombin Time 13.2, Prothromb Time International Ratio 0.98, Activated Partial Thromboplast Time 26.0, Anion Gap 3L, Glomerular Filtration Rate 51.0, Calcium Level 8.5L, Total Creatine Kinase 78, Creatine Kinase MB 2.4, Creatine Kinase MB Relative Index 3.08, Troponin I 0.02, Thyroid Stimulating Hormone (TSH) 6.240H, Ethyl Alcohol Level < 0.003 12/19/20 20:28: Immature Granulocyte % (Auto) 0.8, Neutrophils (%) (Auto) 71.1H, Lymphocytes (%) (Auto) 16.5L, Monocytes (%) (Auto) 7.1, Eosinophils (%) (Auto) 4.0H, Basophils (%) (Auto) 0.5, Neutrophils # (Auto) 7.2, Lymphocytes # (Auto) 1.7, Monocytes # (Auto) 0.7, Eosinophils # (Auto) 0.4, Basophils # (Auto) 0.1, Nucleated Red Blood Cells % (auto) 0.0, Lactic Acid Level 1.5 12/19/20 20:33: Bedside Glucose (Misc Panel) 273H 12/19/20 22:46: Urine Color YELLOW, Urine Appearance CLEAR, Urine pH 7.0, Urine Specific [place] 1.009, Urine Protein NEGATIVE, Urine Glucose (UA) 1+H, Urine Ketones NEGATIVE, Urine Blood NEGATIVE, Urine Nitrite NEGATIVE, Urine Bilirubin NEGATIVE, Urine Urobilinogen 0.2, Urine Leukocyte Esterase NEGATIVE, Urine WBC (Auto) 0, Urine RBC (Auto) 3, Urine Hyaline Casts (Auto) 0, Urine Bacteria (Auto) NEGATIVE, Urine Squamous Epithelial Cells 4, Urine Mucus (Auto) SMALL, Urine Sperm (Auto) , Urine Opiates Screen NEGATIVE, Urine Methadone Screen NEGATIVE, Urine Barbiturates Screen NEGATIVE, Urine Phencyclidine Screen NEGATIVE, Urine Amphetamines Screen NEGATIVE, Urine Benzodiazepines Screen POSITIVEH, Urine Cocaine Metabolite Screen NEGATIVE, Urine Cannabinoids Screen NEGATIVE 12/19/20 22:48: Bedside Glucose (Misc Panel) 198H CBC/BMP Laboratory Tests 12/19/20 20:26 12/19/20 20:28 Microbiology Microbiology 12/20/20 Respiratory Virus Panel (PCR) ([facility]) - Final, Complete Home Medications Scheduled Alprazolam (Xanax) 1 Mg Tablet, 1 MG PO QHS Aspirin (Aspirin EC) 81 Mg Tablet.dr, 81 MG PO DAILY Atorvastatin Calcium (Atorvastatin Calcium) 40 Mg Tablet, 40 MG PO QHS Budesonide (Pulmicort Flexhaler) 90 Mcg Aer.pow.ba, 2 PUFFS INH BID Clopidogrel Bisulfate (Clopidogrel) 75 Mg Tablet, 75 MG PO DAILY Duloxetine Hcl (Duloxetine HCl) 60 Mg Capsule.dr, 60 MG PO DAILY Fluticasone Propionate (Flonase Allergy Relief) 9.9 Ml [place].susp, 50 MCG NA BID Gabapentin (Gabapentin) 100 Mg Capsule, 100 MG PO DAILY Insulin NPH Hum/Reg Insulin Hm (Novolin 70-30 100 Unit/ml Vial) 100 Unit/1 Ml Vial, 40 UNITS SC BID Levothyroxine Sodium (Levothyroxine Sodium) 125 Mcg Tablet, 125 MCG PO DAILY Metoprolol Succinate (Toprol Xl) 25 Mg Tab.er.24h, 25 MG PO DAILY Oxybutynin Chloride (Oxybutynin Chloride) 5 Mg Tablet, 5 MG PO BID Ropinirole HCl (Ropinirole HCl) 1 Mg Tablet, 1 MG PO QHS Allergies Coded Allergies: Penicillins (Verified Allergy, Intermediate, rash, 12/09/20) Tetracyclines (Verified Allergy, Intermediate, rash, 12/09/20) Sulfa (Sulfonamide Antibiotics) (Verified Adverse Reaction, Mild, mouth sores, 12/09/20) A-FIB/CHADSVASC A-FIB History Current/History of A-Fib/PAF?: No Current PO Anticoag Therapy: No HAKEEM TALBOT MD Dec 20, 2020 03:27
[2020-12-20 04:44] VITALS: BP 100/60
[2020-12-20] MEDS: SYMBICORT 80/4.5MCG INHALER 6GM INH SCH ×2 (07:14→19:56)
[2020-12-20 07:51] LABS: BASO % 0.4 % (0.0-1.0); EOS # 0.4 10^3/uL (0.0-0.5); EOS % 4.1 % (0.0-3.0); HEMATOCRIT 36.7 % (36.0-47.0); HEMOGLOBIN 10.8 g/dl (12.0-15.5); LYMPH # 1.7 10^3/uL (1.5-5.0); LYMPH % 17.9 % (24.0-44.0); MEAN CORPUSCULAR HEMOGLOBIN 27.8 pg (27.0-33.0); MEAN CORPUSCULAR HGB CONC 29.4 g/dl (32.0-36.5); MEAN CORPUSCULAR VOLUME 94.6 fl (80.0-96.0); MONO # 0.6 10^3/uL (0.0-0.8); MONO % 6.9 % (2.0-8.0); NEUTROPHILS # 6.5 10^3/uL (1.5-8.5); NEUTROPHILS % 69.9 % (36.0-66.0); PLATELET COUNT, AUTOMATED 205 10^3/uL (150-450); RED BLOOD COUNT 3.88 10^6/uL (4.00-5.40); WHITE BLOOD COUNT 9.3 10^3/uL (4.0-10.0)
[2020-12-20 08:00] VITALS: BP 146/66
[2020-12-20 08:29] LABS: BLOOD UREA NITROGEN 18 MG/DL (7-18); CALCIUM LEVEL 8.2 MG/DL (8.8-10.2); CARBON DIOXIDE LEVEL 31 MEQ/L (21-32); CHLORIDE LEVEL 107 MEQ/L (98-107); GLOMERULAR FILTRATION RATE > 60.0 (>39); GLUCOSE, FASTING 234 MG/DL (70-100); MAGNESIUM LEVEL 2.1 MG/DL (1.8-2.4); POTASSIUM SERUM 4.4 MEQ/L (3.5-5.1); SODIUM LEVEL 141 MEQ/L (136-145)
[2020-12-20] MEDS: DOCUSATE SODIUM 100MG CAPSULE PO SCH ×2 (09:00→20:17)
[2020-12-20] MEDS: LEVOTHYROXINE 125MCG TABLET (0.125MG) PO SCH (09:00)
[2020-12-20] MEDS: ASPIRIN 81MG ENTERIC TABLET PO SCH (09:00)
[2020-12-20] MEDS: CLOPIDOGREL 75 MG TAB PO SCH (09:00)
[2020-12-20] MEDS: oxyBUTYnin 5 MG TAB PO SCH ×2 (09:00→20:17)
[2020-12-20] MEDS: DULoxetine 30 MG CAP (CYMBALTA) PO SCH (09:00)
[2020-12-20] MEDS: GABAPENTIN 100 MG CAP PO SCH (09:00)
[2020-12-20] MEDS: METOPROLOL SUCC *XL* 25MG TAB (TopROL *XL*) PO SCH (09:00)
[2020-12-20] MEDS: ENOXAPARIN 40MG/0.4ML SYRINGE (J1650 PER 10MG) SC SCH (09:01)
[2020-12-20] MEDS: FLUTICASONE PROP 0.05% NASAL SPRAY 16 GM (FLONASE) SCH ×2 (09:01→20:17)
[2020-12-20] MEDS: HumuLIN (NovoLIN)70/30 INSULIN INJ PER UNIT SC SCH ×2 (10:27→20:15)
[2020-12-20 12:00] VITALS: BP 135/62
--- NOTE | 2020-12-20 17:57 | ECGEPIP ---
[facility] - ED Test Date: 2020-12-19 Pat Name: DANIELA HOLLIDAY Department: Room: [place] [address] Gender: Female Catcher Plug: [id number] : [id number] Requested By: GUALBERTO Campos Order Number: [id number] Reading MD: Sondra Milligan Measurements Intervals [place] Rate: 69 P: 70 ND: 126 QRS: -28 QRSD: 136 T: 121 QT: 444 QTc: 475 Interpretive Statements Normal sinus rhythm Left bundle branch block similar 12/09/20 Electronically Signed on 12-20-2020 17:57:27 EDT by Sondra Milligan
[2020-12-20 20:00] VITALS: BP 154/68
[2020-12-20] MEDS ORDERED: ALPRAZolam 0.5 MG TAB PO SCH (21:00)
[2020-12-20] MEDS ORDERED: rOPINIRole 1MG TAB PO SCH (21:00)
[2020-12-20] MEDS ORDERED: ATORVASTATIN 20 MG TAB PO SCH (21:00)
[2020-12-20 22:45] VITALS: BP 115/68
[2020-12-21 06:00] VITALS: BP 132/60
[2020-12-21 06:30] VITALS: BP_SYST 137; BP_SYST 166; BP_SYST 167; BP_DIAS 67; BP_DIAS 81; BP_DIAS 87
[2020-12-21] MEDS: SYMBICORT 80/4.5MCG INHALER 6GM INH SCH (07:30)
[2020-12-21] MEDS: LEVOTHYROXINE 125MCG TABLET (0.125MG) PO SCH (08:36)
[2020-12-21] MEDS: DOCUSATE SODIUM 100MG CAPSULE PO SCH (08:36)
[2020-12-21] MEDS: CLOPIDOGREL 75 MG TAB PO SCH (08:36)
[2020-12-21] MEDS: DULoxetine 30 MG CAP (CYMBALTA) PO SCH (08:36)
[2020-12-21] MEDS: ENOXAPARIN 40MG/0.4ML SYRINGE (J1650 PER 10MG) SC SCH (08:36)
[2020-12-21] MEDS: GABAPENTIN 100 MG CAP PO SCH (08:37)
[2020-12-21] MEDS: ASPIRIN 81MG ENTERIC TABLET PO SCH (08:37)
[2020-12-21] MEDS: oxyBUTYnin 5 MG TAB PO SCH (08:37)
[2020-12-21 08:39] VITALS: BP 145/64
[2020-12-21] MEDS: METOPROLOL SUCC *XL* 25MG TAB (TopROL *XL*) PO SCH (08:39)
[2020-12-21] MEDS: FLUTICASONE PROP 0.05% NASAL SPRAY 16 GM (FLONASE) SCH (08:44)
[2020-12-21] MEDS: HumuLIN (NovoLIN)70/30 INSULIN INJ PER UNIT SC SCH (11:22)
--- NOTE | 2020-12-22 15:23 | DS.PDOC ---
Discharge Summary General Date of Admission Dec 20, 2020 at 13:41 Date of Discharge 12/21/20 Discharge Summary PROCEDURES PERFORMED DURING STAY: [None]. DISCHARGE DIAGNOSES: Mechanical fall due to unsteady gait from chronic back issues and left sided weakness Orthostatic hypotension SECONDARY DIAGNOSIS: CVA (09/2020) with residual left sided weakness. MRI showed right frontal and parietal lobe acute infarcts and left parietal subcortical white matter acute or subacute infarct. Carotid artery disease planned for right carotid surgery on 12/23/20 HTN DLP IDDM2 COPD has oxygen at home does not always use it. Did not need in hospital. Obesity GERALD not on CPAP Hx of Graves s/p Radiation; now hypothyroidism Bladder CA s/p resection Anxiety Dysthymia/ depression RLS / Chronic pain / Fibromyalgia Bilateral carpal tunnel release Back surgery x 3 2 in lumber region and 1 in thoracic region BCC of upper back COMPLICATIONS/CHIEF COMPLAINT: Orthostatic Hypotension,Weakness.. 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 Patient was recently treated for a stroke in [facility] and has been admitted in early November for similar symptoms, which included numerous falling and loss of balance. CT of the head was obtained in the ER which showed no acute intracranial abnormality. Patient was noted to have positive orthostasis in the ED. Patient's dizziness improved with IVF however she continued to have unsteady gait and remains high risk for falls. PT recom mended continued rehab. I discussed with [facility] about possible further rehab there however Dr Zhu felt that she has reached a pleateau and would not benefit from further acute rehab she felt that she was a candidate for subacute rehab at this time. I discussed this with the patient about going to [facility] however patient did not want to go into rehab at this time she requested to go home so that she can have her surgery on 12/23/20. Patient is being discharged home in a stable condition. Fall likely due to mechanical due to left sided weakness and chronic back issues with gait instability. Mild orthostasis probably worsens her gait instability leading to falls. Hx of CVA with left hemiparesis has 70% stenosis in R carotid carotid endarterectomy scheduled with Dr. Servin for 12/22/20. c/w ASA 81 / Plavix 75 / Atorvastatin 40 HTN Amlodipine / Hydralazine / Losartan ,Chlorthalidone / Metoprolol IDDM2 continue home meds DLP Atorvastatin Chronic COPD No evidence of exacerbation GERALD not on CPAP Hx of Graves s/p Radiation; now hypothyroidism Levothyroxine Bladder CA s/p resection Oxybutynin Anxiety Alprazolam PRN RLS / Chronic back pain / Fibromyalgia / muscle spasms H/o Back surgeries. Ropinirole / Duloxetine / Gabapentin DISCHARGE MEDICATIONS: Please see below. ALLERGIES: Please see below. PHYSICAL EXAMINATION ON DISCHARGE: VITAL SIGNS: Please see below. General: NAD, comfortable, obese HEENT: PERRLA, EOMI, sclerae clear Neck: supple, normal ROM, no JVD Respiratory: lungs CTAB, no wheeze, no rales, no crackles CVS: RRR, normal S1, S2, no murmurs Abdo: soft, no masses, BS+, no rebound tenderness, obese Extremities: no edema, Neuro: 4/5 power in the left upper extremity and left lower extremity, 5/5 power on the RUE and RLE. Psych: calm, cooperative, AAO x 3 LABORATORY DATA: Please see below. IMAGING: CT head without contrast on 12/19/20 No acute intracranial abnormality. Chronic microvascular ischemic changes. CT c-spine (12/19/20): No acute abnormality. CXR (12/19/20): 1. The cardiac silhouette appears enlarged. 2. There is an increase in interstitial markings bilaterally, which is nonspecific. Possible etiologies include interstitial edema and atypical infection. Prominence of the pulmonary vascular markings. Similar findings are visualized on the prior study. 3. Left basilar atelectatic change. Infiltrate within the left lower lung zone cannot be excluded. Clinical correlation is recommended. 4. Mild elevation of the right hemidiaphragm. ACTIVITY: [As tolerated]. DIET: Carb consistent DISPOSITION: 01 Home, Self-Care. DISCHARGE INSTRUCTIONS: Follow up with PMD in 2 weeks DISCHARGE CONDITION: [Stable]. TIME SPENT ON DISCHARGE: 40 minutes. Vital Signs/I&Os Vital Signs Date Time Temp Pulse Resp B/P (MAP) Pulse Ox O2 Delivery O2 Flow Rate FiO2 12/21/20 08:39 76 145/64 12/21/20 06:00 98.1 18 92 Room Air l I&O- Last 24 Hours up to 6 AM 12/22/20 07:00 Intake Total 780 ml Output Total 0 ml Balance 780 ml Microbiology Microbiology 12/20/20 Respiratory Virus Panel (PCR) ([facility]) - Final, Complete Discharge Medications Scheduled Alprazolam (Xanax) 1 Mg Tablet, 1 MG PO QHS, (Reported) Aspirin (Aspirin EC) 81 Mg Tablet.dr, 81 MG PO DAILY, (Reported) Atorvastatin Calcium (Atorvastatin Calcium) 40 Mg Tablet, 40 MG PO QHS, (Reported) Budesonide (Pulmicort Flexhaler) 90 Mcg Aer.pow.ba, 2 PUFFS INH BID, (Reported) Clopidogrel Bisulfate (Clopidogrel) 75 Mg Tablet, 75 MG PO DAILY, (Reported) Duloxetine Hcl (Duloxetine HCl) 60 Mg Capsule.dr, 60 MG PO DAILY, (Reported) Fluticasone Propionate (Flonase Allergy Relief) 9.9 Ml [place].susp, 50 MCG NA BID, (Reported) Gabapentin (Gabapentin) 100 Mg Capsule, 100 MG PO DAILY, (Reported) Insulin NPH Hum/Reg Insulin Hm (Novolin 70-30 100 Unit/ml Vial) 100 Unit/1 Ml Vial, 40 UNITS SC BID, (Reported) Levothyroxine Sodium (Levothyroxine Sodium) 125 Mcg Tablet, 125 MCG PO DAILY, (Reported) Metoprolol Succinate (Toprol Xl) 25 Mg Tab.er.24h, 25 MG PO DAILY, (Reported) Oxybutynin Chloride (Oxybutynin Chloride) 5 Mg Tablet, 5 MG PO BID, (Reported) Ropinirole HCl (Ropinirole HCl) 1 Mg Tablet, 1 MG PO QHS, (Reported) Allergies Coded Allergies: Penicillins (Verified Allergy, Intermediate, rash, 12/09/20) Tetracyclines (Verified Allergy, Intermediate, rash, 12/09/20) Sulfa (Sulfonamide Antibiotics) (Verified Adverse Reaction, Mild, mouth sores, 12/09/20) MARIAM HANLEY MD Dec 22, 2020 15:23
== END 2020-12-21 16:35 | disposition home health service (06) | DRG 92 ==
LOC: M ED 17:49 → M ED INP 17:50 → ENRESERV 12-20 03:54 → M PCU 12-20 04:46 → OBSVTOIN 12-20 13:41 → M MSPAV 12-20 22:43
PROVIDERS: ADMIT Family Medicine; ATTEND Internal Medicine Nephrology
DX: R29.6 Repeated falls (principal); I69.354 Hemiplegia and hemiparesis following cerebral infarction affecting left non-dominant side; I95.1 Orthostatic hypotension; I65.21 Occlusion and stenosis of right carotid artery; I10 Essential (primary) hypertension; E11.9 Type 2 diabetes mellitus without complications; J44.9 Chronic obstructive pulmonary disease, unspecified; G47.33 Obstructive sleep apnea (adult) (pediatric); E66.9 Obesity, unspecified; E03.9 Hypothyroidism, unspecified; F41.9 Anxiety disorder, unspecified; F32.9 Major depressive disorder, single episode, unspecified; M79.7 Fibromyalgia; Z85.51 Personal history of malignant neoplasm of bladder; Z85.828 Personal history of other malignant neoplasm of skin; E78.5 Hyperlipidemia, unspecified; Z79.899 Other long term (current) drug therapy; Z79.82 Long term (current) use of aspirin; Z79.4 Long term (current) use of insulin; Z88.0 Allergy status to penicillin; Z88.2 Allergy status to sulfonamides; Z88.8 Allergy status to other drugs, medicaments and biological substances; Z92.3 Personal history of irradiation; Z98.41 Cataract extraction status, right eye; Z98.42 Cataract extraction status, left eye; F17.200 Nicotine dependence, unspecified, uncomplicated; M50.91 Cervical disc disorder, unspecified, high cervical region; M50.922 Unspecified cervical disc disorder at C5-C6 level; M50.921 Unspecified cervical disc disorder at C4-C5 level

== ENCOUNTER → 2020-12-19 | Outpatient (CLI) | payer MEDICARE, BC ==
[~2020-12-19] MED LIST changes: +ASPI81TA26 PO; +LEVO125T4 PO; +PULM90IN INH; +TOPR25TA PO
== END ==
LOC: M LABSMTC 14:11
PROVIDERS: ATTEND Anesthesiology
DX: Z01.812 Encounter for preprocedural laboratory examination (principal); Z20.822 Contact with and (suspected) exposure to COVID-19

== ENCOUNTER 2020-12-27 12:51 | Inpatient (IN) | payer MEDICARE, BC ==
[~2020-12-27] VITALS: Ht 152.4 cm; Wt 87.6 kg
[~2020-12-27 12:51] MED LIST changes: +ASPI81TA26 PO; +LEVO125T4 PO; +PERCOCET PO; +PULM90IN INH
[2020-12-27] MEDS ORDERED: ACETAMINOPHEN TAB 650MG DOSE (2X325MG) PO PRN (18:30)
[2020-12-27] MEDS ORDERED: BISACODYL 10 MG SUPP PR PRN (18:30)
[2020-12-27] MEDS ORDERED: GLUCAGON INJ 1MG VIAL SC PRN (18:30)
[2020-12-27] MEDS ORDERED: DEXTROSE 50% 50 ML SYRINGE IV PRN (18:30)
[2020-12-27] MEDS ORDERED: GLUCOSE 4GM CHEW TABLET PO PRN (18:30)
--- NOTE | 2020-12-27 18:39 | HPEPDOC ---
Distiller Note DATE OF ADMISSION: 12-27-20 DATE OF SERVICE: 12-28-20 TIME OF ADMISSION: Please refer to physician's admission order. SOURCE OF ADMISSION INFORMATION: [facility] record and patient CHIEF COMPLAINT: stroke s/p CEA HISTORY OF PRESENT ILLNESS: 80F pmh DM, HLD, HTN, fibromyalgia, COPD on , anxiety, restless leg syndrome, symptomatic right sided carotid stenosis s/p stroke with left sided weakness due to strokes in September and November 2020 was admitted to [facility] on 12-23-20 and evaluated by hospitalist service for scheduled right sided CEA performed by Dr. Servin. Post-op patient had persistent left sided weakness with facial droop and difficult to control BPs. She was continued on ASA and Plavix, had leukocytosis and hyperkalemia, persistent difficulty with mobility and ADls in setting of recent stroke and was deemed medically appropriate for discharge to ARU. REVIEW OF SYSTEMS: The following is a completed review of systems and has been reviewed. Review of systems otherwise unremarkable. PAIN: Patient self reports no pain EYES: [No recent vision changes EARS, NOSE, & THROAT: +dysphagia CARDIOVASCULAR: Denies chest pain or palpitations PULMONARY: Denies shortness of breath GASTROINTESTINAL: Denies constipation/diarrhea GENITOURINARY: denies dysuria MUSCULOSKELETAL: left sided weakness NEUROLOGICAL:left sided paresis HEMATOLOGICAL: denies easy bruising SKIN: right neck incision PSYCHIATRIC: +anxious All other review of systems found to be negative. PAST MEDICAL HISTORY: as per HPI PAST SURGICAL HISTORY: Neck/thyroid radiation treatments, Cholecystectomy, Bladder stent, Back surgery, Bilateral foot bunionectomy, Right toe surgery , Bilateral carpal tunnel surgery, Bilateral cataract, cystoscopy 10/14/19 ALLERGIES: Please see below. MEDICATIONS: Please see below. FAMILY HISTORY: Cardiac SOCIAL HISTORY: Former smoker, no etoh/illicit drugs DIET: consistent carb PHYSICAL EXAMINATION: VITAL SIGNS: Please see below. GENERAL: Pleasant and cooperative. No acute distress. HEENT: PERRL. Extraocular movements intact. Clear conjunctiva, very mild left facial droop, tongue midline CARDIOVASCULAR: Regular rate and rhythm. No murmurs, rubs, or gallops LUNGS: Clear to auscultation bilaterally. No wheezes. No rhonchi ABDOMEN: Soft, nontender, nondistended. Positive bowel sounds. Normal active bowel sounds NEUROLOGICAL: Alert and oriented times three. Cranial nerves II through XII grossly intact. Sensation grossly intact EXTREMITIES: 5\5 strength right upper extremity, 3+ LUE. 5\5 strength right lower extremity. 5-/5 strength in left lower extremity. +bilat LE edema SKIN: right neck incision c/d/i no swelling LABORATORY DATA: Please see below. IMAGING:[Imaging documentation personally reviewed by record]. FUNCTIONAL STATUS: Premorbid: Supervision for mobility and ADLs On Admission: contact guard-max assist for bed mobility, contact guard ambulation, functional transfers, Mod assist toileting GOALS: Supervision for bed mobility, functional transfers, ambulation household distances, dressing, toileting ASSESSMENT:80-year-old F with past medical history of right sided carotid stenosis with CVAs who presents status post right CEA and recent stroke PLAN: 1. Rehab- PT/OT advance mobility and ADLs, energy conservation, strengthen/stretch/maintain ROM all 4 limbs -[employer]- cog and swallow eval 2. Neuro- s/p 2 strokes, one September 2020 and most recent right lacunar infarct November 2020 with residual left sided weakness and facial droop due to severe right sided carotid artery stenosis s/p CEA performed 12-23-[address] Servin, c/u ASA and Plavix (plavix to end after 14 days), c/u statin 3. CArdiac- HTN with recently difficult to control BPs, c/u BP meds, monitor and adjust prn -diastolic CHF, fluid restrict, daily weights, will start lasix given edema on today's exam -HLD- statin -medicine consulted to assist in overall management 4. Resp- COPD on home , c/u inhalers, duonebs, monitor for infection 5. Endo- hx of DM c/u ISS, consistent carb diet 6. - overactive bladder, c/u oxybutynin 7. GI ppx- protonix 8. DVT ppx- heparin 9. Psych- anxiety- Xanax 10. Pain- fibromyalgia c/u cymbalta and gabapentin 11. Dispo- TBD POST ADMISSION PHYSICIAN EVALUATION: Medical and functional status: Description of medical status, medical assessment: As above. Rehabilitation diagnosis and current and prior cold morbid medical conditions as above. Risk of complications and plans to mitigate them as above. Description of functional status current status is as above. Prior status as above. Status compared to preadmission: There are no clinically significant differences between the patient's current status and the information described on the preadmission screening document. Treatment plan anticipated: Treatment plan is as described above. Required disciplines including physical therapy, occupational therapy, others as noted above. Intensity of services: 3 hours a day, 6 days a week. Special considerations: There are no specific special or safety considerations that would likely preclude immediate implementation of an intensive rehabilitation program or subsequently influence the plan of care. ATTESTATION: Considering all the information above, it is my best judgment that this patient requires intensive rehabilitation therapy as described above and an inpatient hospital environment due to the complexity of nursing, medical, and rehabilitation needs required by the patient. Furthermore, this patient can reasonably be expected to participate in an benefit from an inpatient rehabilita tion stay with an interdisciplinary team approach to the delivery of rehabilitation care under the direction and supervision of rehabilitation physician. PROGNOSIS: good ESTIMATED LENGTH OF STAY:10-12 days. PROJECTED DISCHARGE DESTINATION: Home with family support and any durable medical equipment required to increase functional safety and mobility. TIME SPENT COUNSELING AND COORDINATING INITIAL CARE: Greater than 70 minutes. Vital Signs Vital Signs Date Time Temp Pulse Resp B/P (MAP) Pulse Ox O2 Delivery O2 Flow Rate FiO2 12/27/20 22:00 97.2 80 20 160/68 (98) 94 Nasal Cannula 2.0 Home Medications Scheduled Alprazolam (Xanax) 1 Mg Tablet, 1 MG PO QHS, (Reported) Aspirin (Aspirin EC) 81 Mg Tablet.dr, 81 MG PO DAILY, (Reported) Atorvastatin Calcium (Atorvastatin Calcium) 40 Mg Tablet, 40 MG PO QHS, (Reported) Budesonide (Pulmicort Flexhaler) 90 Mcg Aer.pow.ba, 2 PUFFS INH BID, (Reported) Clopidogrel Bisulfate (Clopidogrel) 75 Mg Tablet, 75 MG PO DAILY, (Reported) Duloxetine Hcl (Duloxetine HCl) 60 Mg Capsule.dr, 60 MG PO DAILY, (Reported) Fluticasone Propionate (Flonase Allergy Relief) 9.9 Ml [place].susp, 50 MCG NA BID, (Reported) Gabapentin (Gabapentin) 100 Mg Capsule, 100 MG PO DAILY, (Reported) Insulin NPH Hum/Reg Insulin Hm (Novolin 70-30 100 Unit/ml Vial) 100 Unit/1 Ml Vial, 40 UNITS SC BID, (Reported) Levothyroxine Sodium (Levothyroxine Sodium) 125 Mcg Tablet, 125 MCG PO DAILY, (Reported) Metoprolol Succinate (Toprol Xl) 25 Mg Tab.er.24h, 25 MG PO DAILY, (Reported) Oxybutynin Chloride (Oxybutynin Chloride) 5 Mg Tablet, 5 MG PO BID, (Reported) Ropinirole HCl (Ropinirole HCl) 1 Mg Tablet, 1 MG PO QHS, (Reported) Scheduled PRN Oxycodone HCl/Acetaminophen (Oxycodone-Acetaminophen 5-325) 1 Each Tablet, 1 TAB PO Q4H PRN for MODERATE PAIN (PS 5-7), (Reported) Allergies Coded Allergies: Penicillins (Verified Allergy, Intermediate, rash, 12/09/20) Tetracyclines (Verified Allergy, Intermediate, rash, 12/09/20) Sulfa (Sulfonamide Antibiotics) (Verified Adverse Reaction, Mild, mouth sores, 12/09/20) A-FIB/CHADSVASC A-FIB History Current/History of A-Fib/PAF?: No Current PO Anticoag Therapy: No MAYI CLINTON MD Dec 27, 2020 18:39
[2020-12-27] MEDS: HumaLOG INSULIN (NovoLOG) PER UNIT SC SCH (21:00)
[2020-12-27 22:00] VITALS: BP 160/68
[2020-12-27] MEDS: SENNA 8.6 MG TAB (SENOKOT) PO SCH (22:00)
[2020-12-27] MEDS: REMEDY PHYTOPLEX Z-GUARD PASTE 113GM TUBE (FROM STOREROOM PRODUCT) TOP SCH (22:00)
[2020-12-27] MEDS: DOCUSATE SODIUM 100MG CAPSULE PO SCH (22:00)
[2020-12-27] MEDS ORDERED: OXYC1TAB23 PO (22:22)
[2020-12-28] MEDS ORDERED: ALPRAZolam 0.25 MG TAB PO PRN
[2020-12-28] MEDS: **hydrALAZINE HCL** 25 MG TAB PO SCH ×2 (00:35→08:15)
[2020-12-28] MEDS: LEVOTHYROXINE 125MCG TABLET (0.125MG) PO SCH (06:10)
[2020-12-28 06:25] LABS: BASO # 0.1 10^3/uL (0.0-0.2); BASO % 0.7 % (0.0-1.0); EOS # 0.5 10^3/uL (0.0-0.5); EOS % 5.3 % (0.0-3.0); HEMATOCRIT 35.1 % (36.0-47.0); HEMOGLOBIN 10.7 g/dl (12.0-15.5); LYMPH # 1.9 10^3/uL (1.5-5.0); LYMPH % 20.3 % (24.0-44.0); MEAN CORPUSCULAR HEMOGLOBIN 28.5 pg (27.0-33.0); MEAN CORPUSCULAR HGB CONC 30.5 g/dl (32.0-36.5); MEAN CORPUSCULAR VOLUME 93.4 fl (80.0-96.0); MONO # 0.7 10^3/uL (0.0-0.8); MONO % 7.9 % (2.0-8.0); NEUTROPHILS % 64.8 % (36.0-66.0); PLATELET COUNT, AUTOMATED 197 10^3/uL (150-450); RED BLOOD COUNT 3.76 10^6/uL (4.00-5.40); WHITE BLOOD COUNT 9.2 10^3/uL (4.0-10.0)
[2020-12-28 06:32] VITALS: BP 182/63
[2020-12-28 06:48] LABS: ALBUMIN 2.8 GM/DL (3.2-5.2); ALT/SGPT 18 U/L (12-78); BILIRUBIN,TOTAL 0.3 MG/DL (0.2-1.0); BLOOD UREA NITROGEN 20 MG/DL (7-18); CARBON DIOXIDE LEVEL 36 MEQ/L (21-32); CHLORIDE LEVEL 102 MEQ/L (98-107); CREATININE FOR GFR 0.85 MG/DL (0.55-1.30); GLOMERULAR FILTRATION RATE > 60.0 (>39); GLUCOSE, FASTING 228 MG/DL (70-100); SODIUM LEVEL 141 MEQ/L (136-145)
[2020-12-28] MEDS ORDERED: METOPROLOL SUCC *XL* 25MG TAB (TopROL *XL*) PO ONE (07:00)
[2020-12-28] MEDS: METOPROLOL SUCC *XL* 25MG TAB (TopROL *XL*) PO SCH ×2 (07:06→07:34)
[2020-12-28] MEDS: BUDESONIDE 180MCG INHALER (PULMICORT FLEXHALER) INH SCH ×2 (08:01→19:38)
[2020-12-28] MEDS: HumaLOG INSULIN (NovoLOG) PER UNIT SC SCH ×4 (08:11→21:00)
[2020-12-28] MEDS: HEPARIN SOD (PORCINE) 5000UNITS/ML 1ML VIAL/SYRINGE SC SCH ×2 (08:11→21:00)
[2020-12-28] MEDS: GABAPENTIN 100 MG CAP PO SCH (08:12)
[2020-12-28] MEDS: DOCUSATE SODIUM 100MG CAPSULE PO SCH ×2 (08:12→21:02)
[2020-12-28] MEDS: DULoxetine 30 MG CAP (CYMBALTA) PO SCH (08:12)
[2020-12-28] MEDS: oxyBUTYnin 5 MG TAB PO SCH ×2 (08:12→21:02)
[2020-12-28] MEDS: ASPIRIN 81MG ENTERIC TABLET PO SCH (08:12)
[2020-12-28] MEDS: CLOPIDOGREL 75 MG TAB PO SCH (08:12)
[2020-12-28] MEDS: REMEDY PHYTOPLEX Z-GUARD PASTE 113GM TUBE (FROM STOREROOM PRODUCT) TOP SCH ×3 (08:15→21:03)
[2020-12-28] MEDS: FLUTICASONE PROP 0.05% NASAL SPRAY 16 GM (FLONASE) NARES SCH ×2 (08:20→21:00)
[2020-12-28] MEDS ORDERED: FUROSEMIDE 40 MG TAB PO SCH (09:00)
--- NOTE | 2020-12-28 11:06 | CR.PDOC ---
General Date of Consultation: Dec 28, 2020 Referring Provider: MAYI CLINTON MD Consultation DR BULLARD'S CONSULTATION NOTE JOB #[id number] Vital Signs/I&O Vital Signs Date Time Temp Pulse Resp B/P (MAP) Pulse Ox O2 Delivery O2 Flow Rate FiO2 12/28/20 08:15 146/70 12/28/20 07:31 76 12/28/20 06:32 96.9 18 92 Nasal Cannula 1.0 I&O- Last 24 Hours up to 6 AM 12/28/20 06:00 Intake Total 100 ml Balance 100 ml Laboratory Data Labs 24H Laboratory Tests 2 12/28/20 06:02: Immature Granulocyte % (Auto) 1.0, Neutrophils (%) (Auto) 64.8, Lymphocytes (%) (Auto) 20.3L, Monocytes (%) (Auto) 7.9, Eosinophils (%) (Auto) 5.3H, Basophils (%) (Auto) 0.7, Neutrophils # (Auto) 6.0, Lymphocytes # (Auto) 1.9, Monocytes # (Auto) 0.7, Eosinophils # (Auto) 0.5, Basophils # (Auto) 0.1, Nucleated Red Blood Cells % (auto) 0.0, Anion Gap 3L, Glomerular Filtration Rate > 60.0, Calcium Level 9.0, Total Bilirubin 0.3, Aspartate Amino Transf (AST/SGOT) 13, Alanine Aminotransferase (ALT/SGPT) 18, Alkaline Phosphatase 106, Total Protein 6.0L, Albumin 2.8L, Albumin/Globulin Ratio 0.9L CBC/BMP Laboratory Tests 12/28/20 06:02 Allergies Coded Allergies: Penicillins (Verified Allergy, Intermediate, rash, 12/09/20) Tetracyclines (Verified Allergy, Intermediate, rash, 12/09/20) Sulfa (Sulfonamide Antibiotics) (Verified Adverse Reaction, Mild, mouth sores, 12/09/20) Home Medications Scheduled Alprazolam (Xanax) 1 Mg Tablet, 1 MG PO QHS, (Reported) Aspirin (Aspirin EC) 81 Mg Tablet.dr, 81 MG PO DAILY, (Reported) Atorvastatin Calcium (Atorvastatin Calcium) 40 Mg Tablet, 40 MG PO QHS, (Reported) Budesonide (Pulmicort Flexhaler) 90 Mcg Aer.pow.ba, 2 PUFFS INH BID, (Reported) Clopidogrel Bisulfate (Clopidogrel) 75 Mg Tablet, 75 MG PO DAILY, (Reported) Duloxetine Hcl (Duloxetine HCl) 60 Mg Capsule.dr, 60 MG PO DAILY, (Reported) Fluticasone Propionate (Flonase Allergy Relief) 9.9 Ml [place].susp, 50 MCG NA BID, (Reported) Gabapentin (Gabapentin) 100 Mg Capsule, 100 MG PO DAILY, (Reported) Insulin NPH Hum/Reg Insulin Hm (Novolin 70-30 100 Unit/ml Vial) 100 Unit/1 Ml Vial, 40 UNITS SC BID, (Reported) Levothyroxine Sodium (Levothyroxine Sodium) 125 Mcg Tablet, 125 MCG PO DAILY, (Reported) Metoprolol Succinate (Toprol Xl) 25 Mg Tab.er.24h, 25 MG PO DAILY, (Reported) Oxybutynin Chloride (Oxybutynin Chloride) 5 Mg Tablet, 5 MG PO BID, (Reported) Ropinirole HCl (Ropinirole HCl) 1 Mg Tablet, 1 MG PO QHS, (Reported) Scheduled PRN Oxycodone HCl/Acetaminophen (Oxycodone-Acetaminophen 5-325) 1 Each Tablet, 1 TAB PO Q4H PRN for MODERATE PAIN (PS 5-7), (Reported) SAM BULLARD MD Dec 28, 2020 11:06
[2020-12-28] MEDS ORDERED: ACETAMINOPHEN 500 MG TAB PO ONE (11:15)
[2020-12-28 11:30] VITALS: BP 200/80
[2020-12-28] MEDS ORDERED: **hydrALAZINE HCL** 25 MG TAB PO ONE (11:30)
--- NOTE | 2020-12-28 11:31 | REP ---
INDICATION: LEFT ELBOW PAIN. COMPARISON: 10/04/2020 four view exam TECHNIQUE: Portable AP and lateral views FINDINGS: There is an unchanged benign soft tissue calcification seen in the ventral soft tissues at the level of the proximal ulnar diaphysis. This limited two view portable exam shows no evidence of an acute fracture or destructive osseous lesion. There is no evidence of a gross joint effusion. IMPRESSION: Limited two view portable exam as described above showing no evidence of an acute abnormality. <Electronically signed by Pietro Godoy > 12/28/20 [id number]
[2020-12-28] MEDS: **hydrALAZINE** 50 MG TAB PO SCH ×2 (11:37→17:23)
[2020-12-28] MEDS: PANTOPRAZOLE 40MG TAB (PROTONIX) PO SCH (11:46)
--- NOTE | 2020-12-28 11:46 | CR ---
CONSULTATION DATE: 12/27/2020 REASON FOR CONSULTATION: Management of chronic medical problems. REFERRING PHYSICIAN: MAYI CLINTON MD CHIEF COMPLAINT: History of CVA with right carotid stenosis status post right carotid endarterectomy, also complains of left elbow pain this morning. HISTORY OF PRESENT ILLNESS: This is a 79-year-old female with a history of hypertension, hyperlipidemia, smoking, COPD on 2 liters of oxygen, noncompliant at home, GERALD, recent CVA in November 2020, history of Graves' status post radiation, now hypothyroid on chronic Synthroid, bladder CA, anxiety, restless leg syndrome, Type 2 diabetes, chronic pain, fibromyalgia and tobacco abuse. Had persistent left sided weakness since her CVA in November 2020, carotid duplex revealed greater than 70% right carotid stenosis which may be the etiology of her stroke. She has been managed with aspirin and Plavix and statin as an outpatient and underwent right carotid endarterectomy during her previous admission and discharged on 12/27/20. Patient had persistent complaints of dizziness, unable to be discharged home and transferred to the acute rehab unit for rehab services. This morning the patient complains of waking up with left elbow pain, unable to flex and extend without difficulty. She also says she has some tingling sensation of her left pinky and fourth digit and says that sometime she has trigger finger. On palpation, the patient had no swelling, redness or induration of the area. No signs of cellulitis, otherwise she still complains of dizziness when she first gets up but was not orthostatic. PAST MEDICAL HISTORY: CVA in November 2020 with left sided weakness, hypertension, hyperlipidemia, COPD, chronic hypoxic respiratory failure on 2 liters of oxygen, noncompliant at home, obstructive sleep apnea, tobacco abuse, history of Graves' disease status post radiation, now hypothyroid on Synthroid, history of bladder CA, anxiety, restless leg syndrome, Type 2 diabetes, chronic pain, fibromyalgia, tobacco abuse. PAST SURGICAL HISTORY: Right carotid endarterectomy in December 2020, neck and thyroid radiation treatments, cholecystectomy, bladder stent, back surgery, bilateral foot bunionectomy, right toe surgery, bilateral carpal tunnel surgery, bilateral cataract extraction, cystoscopy in September 2019. SOCIAL HISTORY: Previously smoked for about 64 years. FAMILY HISTORY: Hypertension. ALLERGIES: See below. HOME MEDICATIONS AND HOSPITAL MEDICATIONS: Please see below. REVIEW OF SYSTEMS: Per HPI. A 12 point system is otherwise negative. HOSPITAL MEDICATIONS: 1. Requip 1 mg q.h.s. 2. Lipitor 40 q.h.s. 3. Hydralazine 50 q. hours. 4. Tylenol 650 q. 4 as needed. 5. Ditropan 5 mg b.i.d. 6. Gabapentin 100 q.a.m. 7. Fluticasone one spray b.i.d. 8. Cymbalta 60 daily. 9. Plavix 75 daily. 10.Aspirin 81 daily. 11.Heparin sub q. every 12 hours. 12.Pulmicort two puffs b.i.d. 13.Humalog sliding scale. 14.Norvasc 2.5 daily. 15.Synthroid 125 mcg daily. 16.Xanax 0.25 t.i.d. 17.Humalog sliding scale q.a.c. h.s. 18.Senokot one tablet q.h.s. 19.Colace 100 b.i.d. 20.Hypoglycemic protocol. 21.Dulcolax 10 mg as needed for constipation. PHYSICAL EXAMINATION: VITAL SIGNS: Temperature is 96.9, pulse is 76, respiratory rate 18, blood pressure is 146/70, 92% on 1 liter nasal cannula. GENERAL: Awake, alert and oriented to person, place and time, answering questions appropriately. HEENT: Pupils are round, reactive to light and accommodation. Extraocular muscles are intact. NECK: Right carotid endarterectomy postop changes, no erythema, induration or crepitus. Nontender. LUNGS: Clear to auscultation. No wheezing, rales or rhonchi. HEART: S1 and S2. Sinus rhythm. ABDOMEN: Soft, nontender and nondistended. Obese abdomen. No rebound or guarding. EXTREMITIES: No cyanosis or clubbing. Left elbow: Limited extension flexion due to pain, unable to raise to 90 degrees. Patient has no changes in sensation. Radial pulse is intact. SKIN: Warm, dry and well-perfused. [place] in color. LABORATORY DATA: White count is 9.2, hemoglobin is 10, hematocrit is 35, platelet count is 197,000. Sodium is 141, potassium is 4, chloride is 102, bicarbonate is 36, BUN 20, creatinine is 0.85. Glucose is 228. T-bilirubin is 0.3, AST is 13, ALT is 18, alkaline phosphatase is 106, albumin of 2.8. ASSESSMENT AND PLAN: This is a 80-year-old female, full code, recent CVA with chronic left sided hemiparesis, chronic hypoxic respiratory failure on 2 liters of oxygen with COPD. Discharged from the medical floor on 12/27 status post right carotid endarterectomy, now with the following issues: 1. Hypertension, uncontrolled, resumed on home medications, Norvasc added 2.5 mg, can increase to 5 mg on Labetalol and hydralazine. 2. Right carotid artery stenosis with recent left hemiparesis from CVA in November 2020 status post right carotid endarterectomy by Dr. Servin on 12/23/2020. Per Dr. Servin, the patient is to be continued on Eliquis, aspirin and statin. Patient can stop the Plavix after 14 days. Outpatient follow-up with Vascular Surgery at hospital discharge. 3. Type 2 diabetes, uncontrolled. Glucose fasting is 280 this morning on sliding scale, consistent carbohydrate diet, fingersticks q.a.c. h.s., titrate for better glycemic control. 4. Hypothyroidism with a history of Graves' and radiation now on supplemental Synthroid, resumed on home dose. 5. Restless legs, on ropinirole. 6. COPD, appears to be compensated on 2 liters home oxygen and inhalers. Recent CVA with left sided hemiparesis, acute rehab services. MTDD
[2020-12-28] MEDS ORDERED: ALPRAZolam 0.25 MG TAB PO ONE (12:05)
[2020-12-28 12:10] VITALS: BP 150/60
[2020-12-28] MEDS ORDERED: LEVEMIR (INSULIN DETEMIR) 1 UNITS/0.01ML SC ONE (12:30)
[2020-12-28] MEDS: ALPRAZolam 0.25 MG TAB PO SCH ×2 (12:39→21:02)
[2020-12-28] MEDS ORDERED: **hydrALAZINE** 50 MG TAB PO SCH (13:00)
[2020-12-28 14:00] VITALS: BP 130/54
[2020-12-28 20:00] VITALS: BP 155/67
[2020-12-28] MEDS: SENNA 8.6 MG TAB (SENOKOT) PO SCH (21:00)
[2020-12-28] MEDS ORDERED: rOPINIRole 1MG TAB PO SCH (21:00)
[2020-12-28] MEDS ORDERED: LEVEMIR (INSULIN DETEMIR) 1 UNITS/0.01ML SC SCH ×2 (21:00)
[2020-12-28] MEDS: rOPINIRole 2MG TAB PO SCH (21:01)
[2020-12-28] MEDS: amLODIPine 5 MG TAB PO SCH (21:02)
[2020-12-28] MEDS: ATORVASTATIN 20 MG TAB PO SCH (21:02)
[2020-12-29 00:17] VITALS: BP 170/83
[2020-12-29] MEDS: **hydrALAZINE** 50 MG TAB PO SCH ×5 (00:17→23:48)
[2020-12-29 05:21] VITALS: BP 174/60
[2020-12-29] MEDS: LEVOTHYROXINE 125MCG TABLET (0.125MG) PO SCH (05:35)
[2020-12-29] MEDS: BUDESONIDE 180MCG INHALER (PULMICORT FLEXHALER) INH SCH ×2 (07:17→20:08)
[2020-12-29] MEDS: ASPIRIN 81MG ENTERIC TABLET PO SCH (08:11)
[2020-12-29] MEDS: PANTOPRAZOLE 40MG TAB (PROTONIX) PO SCH (08:12)
[2020-12-29] MEDS: DOCUSATE SODIUM 100MG CAPSULE PO SCH ×2 (08:12→21:41)
[2020-12-29] MEDS: FUROSEMIDE 20 MG TAB PO SCH (08:12)
[2020-12-29] MEDS: GABAPENTIN 100 MG CAP PO SCH (08:12)
[2020-12-29] MEDS: oxyBUTYnin 5 MG TAB PO SCH (08:13)
[2020-12-29] MEDS: DULoxetine 30 MG CAP (CYMBALTA) PO SCH (08:13)
[2020-12-29] MEDS: CLOPIDOGREL 75 MG TAB PO SCH (08:13)
[2020-12-29] MEDS: METOPROLOL SUCC *XL* 25MG TAB (TopROL *XL*) PO SCH ×2 (08:15→21:45)
[2020-12-29] MEDS: ALPRAZolam 0.25 MG TAB PO SCH ×2 (08:16→21:42)
[2020-12-29] MEDS: amLODIPine 5 MG TAB PO SCH ×2 (08:16→21:45)
[2020-12-29] MEDS: HEPARIN SOD (PORCINE) 5000UNITS/ML 1ML VIAL/SYRINGE SC SCH ×2 (08:17→21:44)
[2020-12-29] MEDS: HumaLOG INSULIN (NovoLOG) PER UNIT SC SCH ×4 (08:17→21:00)
[2020-12-29] MEDS: FLUTICASONE PROP 0.05% NASAL SPRAY 16 GM (FLONASE) NARES SCH ×2 (08:20→21:46)
[2020-12-29] MEDS: REMEDY PHYTOPLEX Z-GUARD PASTE 113GM TUBE (FROM STOREROOM PRODUCT) TOP SCH ×3 (08:20→21:46)
[2020-12-29 09:30] VITALS: BP 180/80
--- NOTE | 2020-12-29 09:44 | IPNPDOC ---
Date Seen The patient was seen on 12/29/20. Progress Note PMR Attending requesting BP control for [id number] this am. plan: for more immediate control, try nitro 2% topically q4hrs with holding parameters. may continue all other anti-hypertensives with holding parameters address all pain issues especially left elbow which could be driving VS, I&O, 24H, Fishbone Vital Signs/I&O Vital Signs Date Time Temp Pulse Resp B/P (MAP) Pulse Ox O2 Delivery O2 Flow Rate FiO2 12/29/20 08:15 86 200/80 12/29/20 05:21 97.7 19 93 Nasal Cannula 2.0 I&O- Last 24 Hours up to 6 AM 12/29/20 06:00 Intake Total 500 ml Balance 500 ml Laboratory Data 24H LABS Laboratory Tests 2 12/28/20 11:34: Bedside Glucose (Misc Panel) 368H 12/28/20 16:30: Bedside Glucose (Misc Panel) 263H 12/28/20 19:58: Bedside Glucose (Misc Panel) 295H 12/29/20 05:10: Bedside Glucose (Misc Panel) 178H SAM BULLARD MD Dec 29, 2020 09:44
[2020-12-29] MEDS ORDERED: oxyCODONE 5MG TAB PO PRN (09:45)
--- NOTE | 2020-12-29 09:51 | IPNPDOC ---
PM&R Progress Note DATE OF SERVICE: Dec 29, 2020 [facility] Progress Note Subjective: Patient stating the headache she had earlier has resolved but that she has some soreness on her right upper calf where there is indentation from recent TEDs. REVIEW OF SYSTEMS: The following is a completed review of systems and has been reviewed. Review of systems otherwise unremarkable. PAIN: Patient self reports no pain EYES: No recent vision changes EARS, NOSE, & THROAT: +dysphagia CARDIOVASCULAR: Denies chest pain or palpitations PULMONARY: Denies shortness of breath GASTROINTESTINAL: Denies constipation/diarrhea GENITOURINARY: denies dysuria MUSCULOSKELETAL: left sided weakness NEUROLOGICAL:left sided paresis HEMATOLOGICAL: denies easy bruising SKIN: right neck incision PSYCHIATRIC: +anxious All other review of systems found to be negative. PHYSICAL EXAMINATION: VITAL SIGNS: Please see below. GENERAL: Pleasant and cooperative. No acute distress. HEENT: PERRL. Extraocular movements intact. Clear conjunctiva, very mild left facial droop, tongue midline CARDIOVASCULAR: Regular rate and rhythm. No murmurs, rubs, or gallops LUNGS: Clear to auscultation bilaterally. No wheezes. No rhonchi ABDOMEN: Soft, nontender, nondistended. Positive bowel sounds. Normal active bowel sounds NEUROLOGICAL: Alert and oriented times three. Cranial nerves II through XII grossly intact. Sensation grossly intact EXTREMITIES: 5\5 strength right upper extremity, 3+ LUE. 5\5 strength right lower extremity. 5-/5 strength in left lower extremity. +bilat LE edema SKIN: right neck incision c/d/i no swelling LABORATORY DATA: Please see below. ASSESSMENT:80-year-old F with past medical history of right sided carotid stenosis with CVAs who presents status post right CEA and recent stroke PLAN: 1. Rehab- PT/OT advance mobility and ADLs, energy conservation, strengthen/stretch/maintain ROM all 4 limbs -NAILER HAND- cog and swallow eval 2. Neuro- s/p 2 strokes, one September 2020 and most recent right lacunar infarct November 2020 with residual left sided weakness and facial droop due to severe r ight sided carotid artery stenosis s/p CEA performed 12-23-[address] Servin, c/u ASA and Plavix (plavix to end after 14 days), c/u statin 3. CArdiac- HTN with recently difficult to control BPs, c/u BP meds, medicine closely monitoring c/u to adjust prn- consulting renal to assist with BP management in setting of CKD -diastolic CHF, fluid restrict, daily weights, c/u lasix for now (legs less edematous) -HLD- statin -medicine consulted to assist in overall management 4. Resp- COPD on home 02, c/u inhalers, duonebs, monitor for infection 5. Endo- hx of DM c/u ISS, consistent carb diet 6. - overactive bladder, c/u oxybutynin 7. GI ppx- protonix 8. DVT ppx- heparin 9. Psych- anxiety- Xanax 10. Pain- fibromyalgia c/u cymbalta and gabapentin 11. Renal- patient with CKD, renal consulted to assist in BP management and do possible work-up for renal artery stenosis 11. Dispo- TBD Allergies Coded Allergies: Penicillins (Verified Allergy, Intermediate, rash, 12/09/20) Tetracyclines (Verified Allergy, Intermediate, rash, 12/09/20) Sulfa (Sulfonamide Antibiotics) (Verified Adverse Reaction, Mild, mouth sores, 12/09/20) Vital Signs Vital Signs Date Time Temp Pulse Resp B/P (MAP) Pulse Ox O2 Delivery O2 Flow Rate FiO2 12/29/20 08:15 86 200/80 12/29/20 05:21 97.7 19 93 Nasal Cannula 2.0 Laboratory Data Labs 24H Laboratory Tests 2 12/28/20 11:34: Bedside Glucose (Misc Panel) 368H 12/28/20 16:30: Bedside Glucose (Misc Panel) 263H 12/28/20 19:58: Bedside Glucose (Misc Panel) 295H 12/29/20 05:10: Bedside Glucose (Misc Panel) 178H Current Medications Current Medications Current Medications Medications (Trade) Dose Ordered Sig/Mandi Route PRN Reason Start Time Stop Time Status Last Admin Dose Admin Acetaminophen (Tylenol Tab) 650 mg Q4HP PRN PO fever/MILD PAIN (PS 1-4) 12/27/20 18:30 12/28/20 21:01 Alprazolam (Xanax) 0.25 mg BID PO 12/28/20 09:00 12/29/20 08:16 Alprazolam (Xanax) 0.25 mg TIDP PRN PO ANXIETY 12/28/20 00:00 12/28/20 11:37 DC Amlodipine Besylate (Norvasc) 2.5 mg DAILY PO 12/28/20 06:40 12/28/20 11:06 DC 12/28/20 07:07 Amlodipine Besylate (Norvasc) 5 mg BID PO 12/28/20 21:00 12/29/20 08:16 Aspirin (Ecotrin) 81 mg DAILY PO 12/28/20 09:00 12/29/20 08:11 Atorvastatin Calcium (Lipitor) 40 mg QHS PO 12/28/20 21:00 12/28/20 21:02 Bisacodyl (Dulcolax Suppository) 10 mg DAILYPRN PRN MT CONSTIPATION 12/27/20 18:30 Budesonide (Pulmicort Flexhaler) 2 puff RBID INH 12/28/20 08:00 12/29/20 07:17 Clopidogrel Bisulfate (PLAVix) 75 mg DAILY PO 12/28/20 09:00 01/02/21 12:00 12/29/20 08:13 Dextrose (Dextrose 50%) 25 ml ASDIRECTED PRN IV SEE LABEL COMMENTS 12/27/20 18:30 Docusate Sodium (Colace) 100 mg BID PO 12/27/20 21:00 12/29/20 08:12 Duloxetine HCl (Cymbalta) 60 mg DAILY PO 12/28/20 09:00 12/29/20 08:13 Fluticasone Propionate (Flonase 0.05% Nasal [place]) 1 spray BID NARES 12/28/20 09:00 12/29/20 08:20 Furosemide (Lasix) 20 mg DAILY PO 12/29/20 09:00 12/29/20 08:12 Furosemide (Lasix) 40 mg DAILY PO 12/28/20 09:00 12/29/20 07:45 DC 12/28/20 12:40 Gabapentin (Neurontin) 100 mg QAM PO 12/28/20 09:00 12/29/20 08:12 Glucagon (Glucagon) 1 mg ASDIRECTED PRN SC SEE LABEL COMMENTS 12/27/20 18:30 Glucose (Glucose) 16 GM ASDIRECTED PRN PO SEE LABEL COMMENTS 12/27/20 18:30 Heparin Sodium (Porcine) (Heparin) 5,000 units Q12H SC 12/28/20 09:00 12/29/20 08:17 Hydralazine HCl (Apresoline) 25 mg QID PO 12/27/20 21:00 12/28/20 10:28 DC 12/28/20 08:15 Hydralazine HCl (Apresoline) 50 mg Q6H PO 12/28/20 12:00 12/29/20 05:35 Hydralazine HCl (Apresoline) 50 mg QID PO 12/28/20 13:00 12/28/20 10:58 DC Insulin Detemir (Levemir Insulin) 10 units QHS SC 12/28/20 21:00 12/28/20 12:25 DC Insulin Detemir (Levemir Insulin) 10 units QHS SC 12/28/20 21:00 12/28/20 21:01 Insulin Human Lispro (HumaLOG INSULIN) SEE PROTOCOL TABLE AC SC 12/28/20 07:30 12/29/20 08:17 Insulin Human Lispro (HumaLOG INSULIN) SEE PROTOCOL TABLE QHS SC 12/27/20 21:00 12/28/20 21:00 Levothyroxine Sodium (Synthroid) 125 mcg DAILY@06 PO 12/28/20 06:00 12/29/20 05:35 Metoprolol Succinate (TopROL XL) 25 mg BID PO 12/29/20 21:00 UNV Metoprolol Succinate (TopROL XL) 25 mg DAILY PO 12/28/20 09:00 12/29/20 09:38 DC 12/29/20 08:15 Oxybutynin Chloride (Ditropan) 5 mg BID PO 12/28/20 09:00 12/29/20 08:13 Pantoprazole Sodium (Protonix) 40 mg DAILY PO 12/28/20 09:00 12/29/20 08:12 Ropinirole HCl (Requip) 1 mg QHS PO 12/28/20 21:00 12/28/20 11:39 DC Ropinirole HCl (Requip) 2 mg QHS PO 12/28/20 21:00 12/28/20 21:01 Senna (Senokot) 1 tab QHS PO 12/27/20 21:00 MAYI CLINTON MD Dec 29, 2020 09:51
[2020-12-29] MEDS ORDERED: ACETAMINOPHEN 500 MG TAB PO ONE (10:00)
[2020-12-29] MEDS ORDERED: **hydrALAZINE HCL** 25 MG TAB PO ONE (10:00)
[2020-12-29] MEDS ORDERED: oxyCODONE 5MG TAB PO ONE (10:00)
[2020-12-29] MEDS: NITROGLYCERIN 2% OINT 1 GM *U/D* PKT TOP SCH ×5 (10:13→22:00)
[2020-12-29 11:12] VITALS: BP 102/50
[2020-12-29 14:00] VITALS: BP 114/57
[2020-12-29] MEDS: LEVEMIR (INSULIN DETEMIR) 1 UNITS/0.01ML SC SCH ×2 (14:33→21:47)
[2020-12-29] MEDS ORDERED: SALIVA SUBSTITUTE(MOUTHKOTE) BTL MT PRN (17:00)
[2020-12-29 20:00] VITALS: BP 153/69
[2020-12-29] MEDS: rOPINIRole 2MG TAB PO SCH (21:42)
[2020-12-29] MEDS: SENNA 8.6 MG TAB (SENOKOT) PO SCH (21:42)
[2020-12-29] MEDS: ATORVASTATIN 20 MG TAB PO SCH (21:42)
[2020-12-30] MEDS: NITROGLYCERIN 2% OINT 1 GM *U/D* PKT TOP SCH ×4 (02:04→14:00)
[2020-12-30] MEDS: LEVOTHYROXINE 125MCG TABLET (0.125MG) PO SCH (05:30)
[2020-12-30] MEDS: **hydrALAZINE** 50 MG TAB PO SCH ×2 (05:31→12:00)
[2020-12-30 06:00] VITALS: BP 160/70
[2020-12-30 06:56] LABS: BASO # 0.1 10^3/uL (0.0-0.2); BASO % 0.5 % (0.0-1.0); EOS # 0.7 10^3/uL (0.0-0.5); EOS % 7.4 % (0.0-3.0); HEMATOCRIT 34.1 % (36.0-47.0); HEMOGLOBIN 10.1 g/dl (12.0-15.5); LYMPH # 1.6 10^3/uL (1.5-5.0); LYMPH % 17.3 % (24.0-44.0); MEAN CORPUSCULAR HEMOGLOBIN 27.7 pg (27.0-33.0); MEAN CORPUSCULAR HGB CONC 29.6 g/dl (32.0-36.5); MEAN CORPUSCULAR VOLUME 93.4 fl (80.0-96.0); MONO # 0.7 10^3/uL (0.0-0.8); MONO % 7.2 % (2.0-8.0); NEUTROPHILS # 6.2 10^3/uL (1.5-8.5); NEUTROPHILS % 66.7 % (36.0-66.0); PLATELET COUNT, AUTOMATED 223 10^3/uL (150-450); RED BLOOD COUNT 3.65 10^6/uL (4.00-5.40); WHITE BLOOD COUNT 9.3 10^3/uL (4.0-10.0)
[2020-12-30 07:00] VITALS: BP 136/40
[2020-12-30 07:17] LABS: CALCIUM LEVEL 9.1 MG/DL (8.8-10.2); CREATININE FOR GFR 0.99 MG/DL (0.55-1.30); GLOMERULAR FILTRATION RATE 57.6 (>39); POTASSIUM SERUM 3.9 MEQ/L (3.5-5.1)
[2020-12-30] MEDS: BUDESONIDE 180MCG INHALER (PULMICORT FLEXHALER) INH SCH ×2 (07:39→19:25)
[2020-12-30] MEDS: LEVEMIR (INSULIN DETEMIR) 1 UNITS/0.01ML SC SCH ×2 (09:01→21:20)
[2020-12-30] MEDS: HumaLOG INSULIN (NovoLOG) PER UNIT SC SCH ×4 (09:02→21:00)
[2020-12-30] MEDS: PANTOPRAZOLE 40MG TAB (PROTONIX) PO SCH (09:03)
[2020-12-30] MEDS: DULoxetine 30 MG CAP (CYMBALTA) PO SCH (09:03)
[2020-12-30] MEDS: oxyBUTYnin 5 MG TAB PO SCH (09:03)
[2020-12-30] MEDS: HEPARIN SOD (PORCINE) 5000UNITS/ML 1ML VIAL/SYRINGE SC SCH ×2 (09:04→21:17)
[2020-12-30] MEDS: ASPIRIN 81MG ENTERIC TABLET PO SCH (09:04)
[2020-12-30] MEDS: ALPRAZolam 0.25 MG TAB PO SCH ×2 (09:04→21:19)
[2020-12-30] MEDS: CLOPIDOGREL 75 MG TAB PO SCH (09:04)
[2020-12-30] MEDS: GABAPENTIN 100 MG CAP PO SCH (09:05)
[2020-12-30] MEDS: amLODIPine 5 MG TAB PO SCH ×2 (09:05→21:17)
[2020-12-30] MEDS: METOPROLOL SUCC *XL* 25MG TAB (TopROL *XL*) PO SCH ×2 (09:05→21:19)
[2020-12-30] MEDS: FUROSEMIDE 20 MG TAB PO SCH (09:05)
[2020-12-30] MEDS: FLUTICASONE PROP 0.05% NASAL SPRAY 16 GM (FLONASE) NARES SCH ×2 (09:06→21:20)
[2020-12-30] MEDS: DOCUSATE SODIUM 100MG CAPSULE PO SCH ×2 (09:06→21:18)
[2020-12-30] MEDS: REMEDY PHYTOPLEX Z-GUARD PASTE 113GM TUBE (FROM STOREROOM PRODUCT) TOP SCH ×3 (09:07→21:20)
--- NOTE | 2020-12-30 09:29 | REP ---
INDICATION: eval for renal artery stenosis. COMPARISON: Comparison CT study December 09, 2020.. TECHNIQUE: Urinary tract sonography with renal artery Doppler assessment. FINDINGS: Scanning at the level of the urinary bladder shows no abnormality. Renal cortical echogenicity pattern is normal bilaterally and contours are smooth. There are bilateral renal cysts noted. The largest on the left is a upper pole parapelvic cyst measuring 2.1 cm in greatest diameter. On the right there is a peripheral cyst measuring 2.6 cm in greatest diameter at mid renal level and 2 smaller cysts, 1 in the upper pole less than a cm in diameter and a 1.6 cm cyst in the lower pole. No mass lesion is seen on either side.. The right kidney measures 9.4 x 5.2 x 4.2 cm. Left renal dimensions are 9.5 x 4.4 x 4.6 cm. Renal Doppler assessment: Peak systolic flow velocity in the abdominal aorta at the level of the main renal arteries is normal measured at 104 centimeters/second. Peak systolic flow velocity in the left main renal artery is recorded at 200 centimeters/second and that in the right at 197 centimeters/second. Renal to aortic flow velocity ratios are therefore in the normal range mid at 1.9 bilaterally. Resistive indices and acceleration times are measured in the intralobar arteries of the upper, mid, and lower pole red regions bilaterally. These values are normal. Vena cava filter is noted incidentally. IMPRESSION: No evidence of hydronephrosis or mass. Bilateral renal cysts. Vena cava filter noted in place. No Doppler evidence to suggest high-grade renal artery stenosis.. <Electronically signed by Maverick Gibson > 12/30/20 [id number]
--- NOTE | 2020-12-30 11:54 | CR ---
CONSULTATION DATE: 12/29/2020 REQUESTING PHYSICIAN: MAYI CLINTON MD CONSULTING PHYSICIAN: MALIKA HAMLIN DO REASON FOR CONSULTATION: Hypertensive urgency, rule out renal artery stenosis. HISTORY OF PRESENT ILLNESS: Ms. Malinda Saxena is previously unknown to me. She is a 80-year-old female with a past medical history of CVA in November 2020 with left sided weakness, chronic hypertension, dyslipidemia, COPD, chronic hypoxic respiratory failure on 2 liters of home oxygen (noncompliant at home), obstructive sleep apnea, tobacco use, history of Graves' disease status post radiation, now hypothyroid on Synthroid, history of bladder cancer, anxiety, restless leg syndrome, Type 2 diabetes, chronic pain, fibromyalgia and other comorbid conditions listed below. The patient was admitted to [facility] on December 23 for scheduled right sided carotid endarterectomy performed by Dr. Servin. Postoperatively, the patient had persistent left sided weakness with facial droop and difficult to control blood pressures. She was continued on aspirin and Plavix and was found to persistent difficulty with mobility in the setting of recent stroke and was deemed medically appropriate for discharge to the acute rehabilitation unit on December 28. In the acute rehabilitation unit her blood pressures were noted to be uncontrolled with systolic ranging from 150s to 200 and the Hospitalist service saw the patient and adjusted the antihypertensive regimen with the addition of Norvasc. The primary service rehabilitation has added Lasix and given a dose of Hydralazine and Dr. Zhu asked me to see the patient and workup for renal artery stenosis and help with the control of the patient's blood pressure. Patient has well-preserved renal function with creatinine of 0.8 on the recent labs. An echocardiogram is also noted from November 2020 which shows Grade 1 diastolic dysfunction. Patient is seen and examined this morning at the bedside in the rehab unit and she tells me when her blood pressure gets systolic less than 130s or 120s she starts to feel "goofy." PAST MEDICAL HISTORY: 1. CVA. 2. Carotid artery stenosis. 3. Left sided weakness. 4. Hypertension. 5. Dyslipidemia. 6. Diastolic congestive heart failure. 7. COPD. 8. Chronic hypoxic respiratory failure. 9. Sleep apnea. 10.Tobacco use. 11.History of Graves' disease. 12.Hypothyroidism. 13.History of bladder cancer. 14.Anxiety. 15.Restless leg syndrome. 16.Type 2 diabetes. 17.Chronic pain. 18.Fibromyalgia. 19.Tobacco use. PAST SURGICAL HISTORY: 1. Right carotid endarterectomy. 2. Neck and thyroid radiation treatments. 3. Cholecystectomy. 4. Bladder stent. 5. Back surgery. 6. Bilateral foot bunionectomy. 7. Right toe surgery. 8. Bilateral carpal tunnel surgery. 9. Cataract extractions and cystoscopies. SOCIAL HISTORY: She previously smoked for about 60 some years. No alcohol or illicit drugs. FAMILY HISTORY: Significant for hypertension. ALLERGIES: Penicillin, sulfa and tetracycline. REVIEW OF SYSTEMS: Constitutional: She denies any fevers or chills. Eyes: She denies visual changes or tearing. ENT: She reports no epistaxis or rhinorrhea. Cardiovascular: She has a history of diastolic congestive heart failure. She denies chest pain or palpitations. Reports carotid artery disease. Pulmonary: She denies shortness of breath or cough. Gastrointestinal: Denies nausea, vomiting or constipation. Genitourinary: Denies any changes in urination, dysuria or hematuria. Musculoskeletal: Reports left sided weakness and also reports fibromyalgia. Neurologic: Reports strokes. Hematologic: Reports anemia. Denies anticoagulation. Skin: Reports right neck incision and healing scar. Psychiatric: Reports anxiety. Endocrine: Reports hypothyroidism and diabetes. The remainder of review of systems are negative or as per HPI. PHYSICAL EXAMINATION: VITAL SIGNS: Temperature is 96.9, pulse 74, respiratory 16, blood pressure is 114/57, saturating 94% on room air. Weight on the bed scale today is 91.7 kg. GENERAL: Patient is seen sitting out of bed to the chair in the rehabilitation unit on the phone ordering her lunch, awake, alert and oriented x2, in no apparent distress. HEENT: Extraocular muscles are intact. Tongue is moist. NECK: Supple. Jugular veins were not elevated. HEART: Heart sounds were regular, S1 and S2. There is a healing right anterior scar on the neck. LUNGS: Clear to auscultation bilaterally with prolonged expiration. She is comfortable on room air. ABDOMEN: Soft and nontender. EXTREMITIES: Negative for edema. SKIN: Warm and dry. LABORATORY DATA: Sodium was 141, potassium 4.0, bicarbonate 36, BUN 20, creatinine 0.8, calcium 9.0. Hemoglobin is 10.7. IMAGING: An echocardiogram reviewed with Grade 1 diastolic dysfunction. INPATIENT MEDICATIONS: Tylenol p.r.n., Xanax 0.25 mg p.o. b.i.d., amlodipine 5 mg p.o. b.i.d., aspirin 81 mg p.o. daily, atorvastatin 40 mg p.o. q.h.s., budesonide two puffs inhaled b.i.d., Plavix 75 mg p.o. daily, Docusate 100 mg p.o. b.i.d., Duloxetine 60 mg p.o. daily, Lasix 20 mg p.o. daily, Gabapentin 100 mg p.o. q.a.m., Heparin 5000 units sub q. q. 12 hourly, Hydralazine 50 mg p.o. q. 6 hourly, insulin, levothyroxine 125 mcg p.o. daily, metoprolol 25 mg p.o. b.i.d., Oxybutynin 5 mg p.o. daily, oxycodone p.r.n., Protonix 40 mg p.o. daily, Ropinirole 2 mg p.o. q.h.s., Senokot one tablet p.o. q.h.s. PROBLEMS: 1. Hypertension in the setting of two recent strokes, one in September 2020 and more recently a right lacunar infarct on December 09, 2020. I was consulted to help in the management of control of patient's blood pressure but today I already see significant improvement in her blood pressures with the last five readings all showing good control, systolic ranging from the 110s to 140s. I would continue on the current regimen she is on now, amlodipine, hydralazine, metoprolol, plus Lasix. I have also been requested to work her up for renal artery stenosis which is appropriate given her hypertension and history of carotid artery disease and we will get renal ultrasound with renal artery doppler to further evaluate the same. If there is no renal artery stenosis we can consider adding DECLAN inhibitor instead of hydralazine for more stable control of her blood pressure. 2. Diastolic congestive heart failure. An echocardiogram from September 2020 is reviewed. I agree with the addition of Lasix and her volume status seems fairly compensated at present which is necessary for control of her blood pressure. Thank you for involving me in the care of Ms. Marcinkowski. I will be happy to follow her along with you.
[2020-12-30 14:00] VITALS: BP 147/67
--- NOTE | 2020-12-30 16:25 | IPN ---
NEPHROLOGY PROGRESS NOTE DATE: 12/30/2020 SUBJECTIVE: Patient seen and examined this morning at the bedside. Nursing staff was present as well. Patient reports left-sided headache when she is exerting herself and she also complains of occasional dizziness with exertion. Her blood pressures have been very nicely controlled without bottoming out of her blood pressure and no orthostatic reading. Systolic has mostly been 130s to 140s. PHYSICAL EXAMINATION: Temperature 98.3, pulse 80, respiratory rate 18, blood pressure 147/67, saturation 90-94% on room air. INTAKE AND OUTPUT: Are not fully recorded. GENERAL: Patient is seen lying in bed, elderly female, awake, alert, oriented, comfortable, in no apparent distress. HEENT: Extraocular muscles are intact. Tongue is moist. Neck is supple. Jugular veins were not elevated. There is a dressing over the right anterior neck. HEART SOUNDS: Regular. S1, S2. There is no peripheral edema. LUNGS: Clear to auscultation bilaterally with occasional rhonchus. She is comfortable on room air. ABDOMEN: Soft, nontender. SKIN: Warm and dry. EXTREMITIES: Negative for cyanosis or edema. LABORATORY STUDIES: Today reveal sodium 139, potassium 3.9, bicarbonate 33, BUN 21, creatinine 0.9. Hemoglobin 10.1, platelets 223. She had a renal artery Doppler and renal ultrasound, which were negative for high-grade renal artery stenosis and which show bilateral renal cysts. INPATIENT MEDICATIONS: Reviewed by myself. Her insulin was adjusted by the primary service. The remainder of the medications are unchanged as of yesterday. PROBLEMS: 1. Hypertension. Blood pressure control overall is much improved. The vast majority of her readings are systolic 130s to 140s now. I think that is pretty fair control and I would not aggressively control her blood pressure further than this, given her advanced age and history of two strokes and risk of hypotension. I agree with the current regimen that she is on, amlodipine with metoprolol and hydralazine plus Lasix. Her renal artery Doppler was negative for any renal artery stenosis. 2. Diastolic congestive heart failure. Recommend to continue the current dose of Lasix. Patient's volume status is nicely controlled and she is saturating well on room air.
[2020-12-30 20:10] VITALS: BP 142/54
[2020-12-30] MEDS: ATORVASTATIN 20 MG TAB PO SCH (21:18)
[2020-12-30] MEDS: SENNA 8.6 MG TAB (SENOKOT) PO SCH (21:18)
[2020-12-30] MEDS: rOPINIRole 2MG TAB PO SCH (21:19)
[2020-12-31] MEDS: LEVOTHYROXINE 125MCG TABLET (0.125MG) PO SCH (05:35)
[2020-12-31 05:52] VITALS: BP 136/63
[2020-12-31] MEDS: BUDESONIDE 180MCG INHALER (PULMICORT FLEXHALER) INH SCH ×2 (07:26→19:54)
--- NOTE | 2020-12-31 08:39 | REP ---
INDICATION: hx of chf. COMPARISON: Comparison portable chest x-ray December 19, 2020. TECHNIQUE: Portable upright AP chest radiograph. FINDINGS: Right hemidiaphragm remains somewhat elevated. Vascular and interstitial markings are prominent bilaterally. Borderline heart size again seen. No jeannie pleural effusion is seen. There is some pleural thickening along the left lateral chest wall which was not apparent previously. Oxygen delivery tubing is seen.. IMPRESSION: Borderline heart size. Vascular and interstitial congestion. Mild CHF pattern. No jeannie pleural effusion seen.. <Electronically signed by Maverick Gibson > 12/31/20 [id number]
[2020-12-31] MEDS: amLODIPine 5 MG TAB PO SCH ×2 (09:00→20:27)
[2020-12-31] MEDS: LEVEMIR (INSULIN DETEMIR) 1 UNITS/0.01ML SC SCH ×2 (09:06→20:32)
[2020-12-31] MEDS: DOCUSATE SODIUM 100MG CAPSULE PO SCH ×2 (09:06→20:27)
[2020-12-31] MEDS: HumaLOG INSULIN (NovoLOG) PER UNIT SC SCH ×4 (09:06→20:33)
[2020-12-31] MEDS: CLOPIDOGREL 75 MG TAB PO SCH (09:07)
[2020-12-31] MEDS: oxyBUTYnin 5 MG TAB PO SCH (09:07)
[2020-12-31] MEDS: FUROSEMIDE 20 MG TAB PO SCH (09:07)
[2020-12-31] MEDS: ASPIRIN 81MG ENTERIC TABLET PO SCH (09:07)
[2020-12-31] MEDS: PANTOPRAZOLE 40MG TAB (PROTONIX) PO SCH (09:07)
[2020-12-31] MEDS: DULoxetine 30 MG CAP (CYMBALTA) PO SCH (09:07)
[2020-12-31] MEDS: GABAPENTIN 100 MG CAP PO SCH ×3 (09:09→20:27)
[2020-12-31] MEDS: HEPARIN SOD (PORCINE) 5000UNITS/ML 1ML VIAL/SYRINGE SC SCH ×2 (09:10→20:28)
[2020-12-31] MEDS: METOPROLOL SUCC *XL* 25MG TAB (TopROL *XL*) PO SCH ×2 (09:10→20:26)
[2020-12-31] MEDS: ALPRAZolam 0.25 MG TAB PO SCH ×2 (09:10→20:26)
[2020-12-31] MEDS: REMEDY PHYTOPLEX Z-GUARD PASTE 113GM TUBE (FROM STOREROOM PRODUCT) TOP SCH ×3 (09:11→20:32)
[2020-12-31] MEDS: FLUTICASONE PROP 0.05% NASAL SPRAY 16 GM (FLONASE) NARES SCH ×2 (09:11→20:32)
[2020-12-31 14:00] VITALS: BP 123/56
--- NOTE | 2020-12-31 15:40 | IPN ---
PROGRESS NOTE DATE: 12/31/2020 SUBJECTIVE: Mrs. Saxena is seen this morning on her bedside. She is sitting in the chair eating breakfast at the time of my visit. Nephrology was consulted for blood pressure control. She has her medications adjusted and is feeling well. She is currently undergoing rehab due to her recent stroke. Patient denies any dyspnea, chest pain, headache, nausea or vomiting. PHYSICAL EXAMINATION: VITALS: Temperature 97.5 degrees Fahrenheit, heart rate 70 per minute, respiratory rate 18 per minute, blood pressure 136/63 mmHg and oxygen saturation 91%. HEENT: Head is atraumatic. Neck is supple and without JVD or thyroid enlargement. LUNGS: Sound clear to auscultation. HEART: Sounds are regular. ABDOMEN: Soft and nontender. Bowel sounds are normal. EXTREMITIES: Without any cyanosis or clubbing. NEUROLOGIC: She seems to be doing very well, and continues with her rehab. LABORATORY STUDIES: Patient did not have any new labs sent today. Yesterday, BUN 21, creatinine 0.99, glucose 207 and calcium 9.1. Sodium 139 and potassium 3.9. PROBLEMS: 1. Hypertension: Blood pressure seems well controlled now on current medications and I would recommend to continue with the same. She is receiving Lisinopril 10 mg b.i.d., Metoprolol 25 mg b.i.d., Furosemide 20 mg daily and Amlodipine 5 mg b.i.d. Hydralazine has been stopped. 2. Chronic kidney disease: She seems to have mild chronic kidney disease, which is probably stable at baseline. Electrolytes are normal. 3. Anemia: Her anemia is also mild and stable. From a renal standpoint, patient is doing very well and does not need daily follow-up. I will follow her up only on an as needed basis.
[2020-12-31 20:00] VITALS: BP 144/64
[2020-12-31] MEDS: SENNA 8.6 MG TAB (SENOKOT) PO SCH (20:26)
[2020-12-31] MEDS: rOPINIRole 2MG TAB PO SCH (20:26)
[2020-12-31] MEDS: ATORVASTATIN 20 MG TAB PO SCH (20:28)
[2021-01-01 06:30] VITALS: BP 141/91
[2021-01-01] MEDS: LEVOTHYROXINE 125MCG TABLET (0.125MG) PO SCH (06:43)
[2021-01-01] MEDS: BUDESONIDE 180MCG INHALER (PULMICORT FLEXHALER) INH SCH ×2 (07:20→19:20)
[2021-01-01] MEDS: HumaLOG INSULIN (NovoLOG) PER UNIT SC SCH ×4 (07:37→20:44)
[2021-01-01] MEDS: ASPIRIN 81MG ENTERIC TABLET PO SCH (07:38)
[2021-01-01] MEDS: GABAPENTIN 100 MG CAP PO SCH ×3 (07:38→20:45)
[2021-01-01] MEDS: LEVEMIR (INSULIN DETEMIR) 1 UNITS/0.01ML SC SCH ×2 (07:38→20:44)
[2021-01-01] MEDS: DULoxetine 30 MG CAP (CYMBALTA) PO SCH (07:38)
[2021-01-01] MEDS: DOCUSATE SODIUM 100MG CAPSULE PO SCH ×2 (07:38→20:45)
[2021-01-01] MEDS: oxyBUTYnin 5 MG TAB PO SCH (07:39)
[2021-01-01] MEDS: FUROSEMIDE 20 MG TAB PO SCH (07:39)
[2021-01-01] MEDS: CLOPIDOGREL 75 MG TAB PO SCH (07:39)
[2021-01-01] MEDS: HEPARIN SOD (PORCINE) 5000UNITS/ML 1ML VIAL/SYRINGE SC SCH ×2 (07:40→20:44)
[2021-01-01] MEDS: METOPROLOL SUCC *XL* 25MG TAB (TopROL *XL*) PO SCH ×2 (07:40→20:46)
[2021-01-01] MEDS: ALPRAZolam 0.25 MG TAB PO SCH ×2 (07:40→20:45)
[2021-01-01] MEDS: amLODIPine 5 MG TAB PO SCH ×2 (07:41→20:45)
[2021-01-01] MEDS: PANTOPRAZOLE 40MG TAB (PROTONIX) PO SCH (07:47)
[2021-01-01] MEDS: FLUTICASONE PROP 0.05% NASAL SPRAY 16 GM (FLONASE) NARES SCH ×2 (07:47→20:46)
[2021-01-01] MEDS: REMEDY PHYTOPLEX Z-GUARD PASTE 113GM TUBE (FROM STOREROOM PRODUCT) TOP SCH ×3 (07:47→20:47)
[2021-01-01 14:00] VITALS: BP 149/68
[2021-01-01 20:00] VITALS: BP 148/58
[2021-01-01] MEDS: rOPINIRole 2MG TAB PO SCH (20:45)
[2021-01-01] MEDS: ATORVASTATIN 20 MG TAB PO SCH (20:45)
[2021-01-01] MEDS: SENNA 8.6 MG TAB (SENOKOT) PO SCH (20:45)
[2021-01-02 05:29] VITALS: BP 120/50
[2021-01-02] MEDS: LEVOTHYROXINE 125MCG TABLET (0.125MG) PO SCH (05:34)
[2021-01-02 07:07] LABS: BASO # 0.1 10^3/uL (0.0-0.2); BASO % 0.9 % (0.0-1.0); EOS # 0.5 10^3/uL (0.0-0.5); EOS % 4.8 % (0.0-3.0); HEMATOCRIT 34.1 % (36.0-47.0); HEMOGLOBIN 9.8 g/dl (12.0-15.5); LYMPH # 1.8 10^3/uL (1.5-5.0); LYMPH % 16.8 % (24.0-44.0); MEAN CORPUSCULAR HEMOGLOBIN 27.3 pg (27.0-33.0); MEAN CORPUSCULAR HGB CONC 28.7 g/dl (32.0-36.5); MONO # 0.8 10^3/uL (0.0-0.8); MONO % 7.9 % (2.0-8.0); NEUTROPHILS # 7.2 10^3/uL (1.5-8.5); NEUTROPHILS % 68.6 % (36.0-66.0); PLATELET COUNT, AUTOMATED 188 10^3/uL (150-450); RED BLOOD COUNT 3.59 10^6/uL (4.00-5.40); WHITE BLOOD COUNT 10.5 10^3/uL (4.0-10.0)
[2021-01-02 07:19] LABS: CALCIUM LEVEL 8.6 MG/DL (8.8-10.2); CREATININE FOR GFR 1.06 MG/DL (0.55-1.30); GLOMERULAR FILTRATION RATE 53.2 (>39); POTASSIUM SERUM 4.3 MEQ/L (3.5-5.1)
[2021-01-02] MEDS: BUDESONIDE 180MCG INHALER (PULMICORT FLEXHALER) INH SCH ×2 (08:12→20:00)
[2021-01-02] MEDS: LEVEMIR (INSULIN DETEMIR) 1 UNITS/0.01ML SC SCH ×2 (09:17→21:45)
[2021-01-02] MEDS: GABAPENTIN 100 MG CAP PO SCH ×3 (09:17→21:44)
[2021-01-02] MEDS: HumaLOG INSULIN (NovoLOG) PER UNIT SC SCH ×4 (09:17→21:45)
[2021-01-02] MEDS: DOCUSATE SODIUM 100MG CAPSULE PO SCH ×2 (09:17→21:43)
[2021-01-02] MEDS: amLODIPine 5 MG TAB PO SCH ×2 (09:18→21:44)
[2021-01-02] MEDS: oxyBUTYnin 5 MG TAB PO SCH (09:18)
[2021-01-02] MEDS: DULoxetine 30 MG CAP (CYMBALTA) PO SCH (09:18)
[2021-01-02] MEDS: FUROSEMIDE 20 MG TAB PO SCH (09:19)
[2021-01-02] MEDS: CLOPIDOGREL 75 MG TAB PO SCH (09:19)
[2021-01-02] MEDS: METOPROLOL SUCC *XL* 25MG TAB (TopROL *XL*) PO SCH ×2 (09:19→21:44)
[2021-01-02] MEDS: ASPIRIN 81MG ENTERIC TABLET PO SCH (09:19)
[2021-01-02] MEDS: PANTOPRAZOLE 40MG TAB (PROTONIX) PO SCH (09:19)
[2021-01-02] MEDS: ALPRAZolam 0.25 MG TAB PO SCH ×2 (09:19→21:43)
[2021-01-02] MEDS: HEPARIN SOD (PORCINE) 5000UNITS/ML 1ML VIAL/SYRINGE SC SCH ×2 (09:19→21:46)
[2021-01-02] MEDS: REMEDY PHYTOPLEX Z-GUARD PASTE 113GM TUBE (FROM STOREROOM PRODUCT) TOP SCH ×3 (09:20→21:00)
[2021-01-02] MEDS: FLUTICASONE PROP 0.05% NASAL SPRAY 16 GM (FLONASE) NARES SCH ×2 (09:20→21:46)
--- NOTE | 2021-01-02 11:26 | IPNPDOC ---
Text Note Date of Service The patient was seen on 01/02/21. NOTE Patient seen and examined. Continues to participate in therapy well PHYSICAL EXAMINATION: GENERAL: Awake, alert and oriented to person, place and time, answering questions appropriately. HEENT: Pupils are round, reactive to light and accommodation. Extraocular muscles are intact. NECK: Right carotid endarterectomy postop changes, no erythema, induration or crepitus. Nontender. LUNGS: Clear to auscultation. No wheezing, rales or rhonchi. HEART: S1 and S2. Sinus rhythm. ABDOMEN: Soft, nontender and nondistended. Obese abdomen. No rebound or guarding. EXTREMITIES: No cyanosis or clubbing. Left elbow: Limited extension flexion due to pain, unable to raise to 90 degrees. Patient has no changes in sensation. Radial pulse is intact. SKIN: Warm, dry and well-perfused. [place] in color. ASSESSMENT AND PLAN: This is a 80-year-old female, full code, recent CVA with chronic left sided hemiparesis, chronic hypoxic respiratory failure on 2 liters of oxygen with COPD. Discharged from the medical floor on 12/27 status post right carotid endarterectomy, now with the following issues: 1) Hypertension: Continue on home medications, Norvasc has been added 2.5 mg 2) Right carotid artery stenosis with recent left hemiparesis from CVA in November 2020 status post right carotid endarterectomy by Dr. Servin on 12/23/2020. Per Dr. Servin, the patient is to be continued on Eliquis, aspirin and statin. Patient can stop the Plavix after 14 days. Outpatient follow-up with Vascular Surgery at hospital discharge 3) Type 2 diabetes, uncontrolled. Glucose fasting is 280 this morning on sliding scale, consistent carbohydrate diet, fingersticks q.a.c. h.s., titrate for better glycemic control. 4) Hypothyroidism with a history of Graves' and radiation: now on supplemental Synthroid, resumed on home dose. 5) COPD, appears to be compensated on 2 liters home oxygen and inhalers. Recent CVA with left sided hemiparesis, acute rehab services. Disposition as per primary. VS,Fishbone, I+O VS, Fishbone, I+O Laboratory Tests 01/02/21 06:50 Vital Signs Date Time Temp Pulse Resp B/P (MAP) Pulse Ox O2 Delivery O2 Flow Rate FiO2 01/02/21 09:18 76 169/67 01/02/21 08:12 15 01/02/21 05:29 97.3 98 Nasal Cannula 2.0 I&O- Last 24 Hours up to 6 AM 01/02/21 06:00 Intake Total 370 ml Balance 370 ml DANIELE DURANT MD Jan 02, 2021 11:26
[2021-01-02] MEDS: SODIUM CHLORIDE NASAL 0.65% SPRAY BTL (OCEAN) SCH ×3 (12:45→21:46)
[2021-01-02 14:00] VITALS: BP 130/60
[2021-01-02] MEDS: guaiFENesin 200 MG TAB PO SCH ×2 (17:21→21:43)
[2021-01-02 20:00] VITALS: BP 151/66
--- NOTE | 2021-01-02 20:42 | IPNPDOC ---
PM&R Progress Note DATE OF SERVICE: Jan 02, 2021 Email Production Specialist Progress Note Subjective: Patient stating her headaches are better with exercise. She reports feeling like she has phlegm in her throat and upper chest that she can't get out. She denies fevers or chills. REVIEW OF SYSTEMS: The following is a completed review of systems and has been reviewed. Review of systems otherwise unremarkable. PAIN: Patient self reports no pain EYES: No recent vision changes EARS, NOSE, & THROAT: +dysphagia CARDIOVASCULAR: Denies chest pain or palpitations PULMONARY: Denies shortness of breath, mild cough GASTROINTESTINAL: Denies constipation/diarrhea GENITOURINARY: denies dysuria MUSCULOSKELETAL: left sided weakness NEUROLOGICAL:left sided paresis HEMATOLOGICAL: denies easy bruising SKIN: right neck incision PSYCHIATRIC: +anxious All other review of systems found to be negative. PHYSICAL EXAMINATION: VITAL SIGNS: Please see below. GENERAL: Pleasant and cooperative. No acute distress. HEENT: PERRL. Extraocular movements intact. Clear conjunctiva, very mild left facial droop, tongue midline CARDIOVASCULAR: Regular rate and rhythm. No murmurs, rubs, or gallops LUNGS: Clear to auscultation bilaterally. No wheezes. No rhonchi ABDOMEN: Soft, nontender, nondistended. Positive bowel sounds. Normal active [place] wel sounds NEUROLOGICAL: Alert and oriented times three. Cranial nerves II through XII grossly intact. Sensation grossly intact EXTREMITIES: 5\5 strength right upper extremity, 3+ LUE. 5\5 strength right lower extremity. 5-/5 strength in left lower extremity. +bilat LE edema SKIN: right neck incision c/d/i no swelling LABORATORY DATA: Please see below. ASSESSMENT:80-year-old F with past medical history of right sided carotid stenosis with CVAs who presents status post right CEA and recent stroke PLAN: 1. 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 Neuro- s/p 2 strokes, one September 2020 and most recent right lacunar infarct November 2020 with residual left sided weakness and facial droop due to severe right sided carotid artery stenosis s/p CEA performed 12-23-[address] Servin, c/u ASA and Plavix (plavix to end after 14 days), c/u statin 3. CArdiac- HTN with recently difficult to control BPs- better -diastolic CHF, fluid restrict, daily weights, c/u lasix -HLD- statin -medicine consulted to assist in overall management 4. Resp- COPD on home 02, c/u inhalers, duonebs, monitor for infection -c/u flonase, NS drops ordered, and claritin for sinus pressure -sputum cx ordered for complaint of throat/chest congestion, Resp panel is negative- low concnern for PNA at this time 5. Endo- hx of DM c/u ISS, consistent carb diet 6. - overactive bladder, c/u oxybutynin (dose lwoered to daily due to dry mouth) 7. GI ppx- protonix 8. DVT ppx- heparin 9. Psych- anxiety- Xanax 10. Pain- fibromyalgia c/u cymbalta and gabapentin (increased dosing for headaches which have improved) 11. Renal- patient with CKD, renal consulted to assist in BP management-katrina US negative for renal artery stenosis- recs appreciated 12. Dispo- TBD Allergies Coded Allergies: Penicillins (Verified Allergy, Intermediate, rash, 12/09/20) Tetracyclines (Verified Allergy, Intermediate, rash, 12/09/20) Sulfa (Sulfonamide Antibiotics) (Verified Adverse Reaction, Mild, mouth sores, 12/09/20) Vital Signs Vital Signs Date Time Temp Pulse Resp B/P (MAP) Pulse Ox O2 Delivery O2 Flow Rate FiO2 01/02/21 14:00 97.5 69 18 130/60 (83) Nasal Cannula 2.0 01/02/21 05:29 98 Laboratory Data CBC/BMP Laboratory Tests 01/02/21 06:50 Labs 24H Laboratory Tests 2 01/02/21 05:15: Bedside Glucose (Misc Panel) 188H 01/02/21 06:50: Immature Granulocyte % (Auto) 1.0, Neutrophils (%) (Auto) 68.6H, Lymphocytes (%) (Auto) 16.8L, Monocytes (%) (Auto) 7.9, Eosinophils (%) (Auto) 4.8H, Basophils (%) (Auto) 0.9, Neutrophils # (Auto) 7.2, Lymphocytes # (Auto) 1.8, Monocytes # (Auto) 0.8, Eosinophils # (Auto) 0.5, Basophils # (Auto) 0.1, Nucleated Red Blood Cells % (auto) 0.0, Anion Gap 3L, Glomerular Filtration Rate 53.2, Calcium Level 8.6L 01/02/21 11:28: Bedside Glucose (Misc Panel) 249H 01/02/21 16:20: Bedside Glucose (Misc Panel) 197H 01/02/21 19:59: Bedside Glucose (Misc Panel) 265H Microbiology Microbiology 01/02/21 Respiratory Virus Panel (PCR) (RANI) - Final, Complete Current Medications Current Medications Current Medications Medications (Trade) Dose Ordered Sig/Mandi Route PRN Reason Start Time Stop Time Status Last Admin Dose Admin Acetaminophen (Tylenol Tab) 650 mg Q4HP PRN PO fever/MILD PAIN (PS 1-4) 12/27/20 18:30 12/28/20 21:01 Alprazolam (Xanax) 0.25 mg BID PO 12/28/20 09:00 01/02/21 09:19 Alprazolam (Xanax) 0.25 mg TIDP PRN PO ANXIETY 12/28/20 00:00 12/28/20 11:37 DC Amlodipine Besylate (Norvasc) 2.5 mg DAILY PO 12/28/20 06:40 12/28/20 11:06 DC 12/28/20 07:07 Amlodipine Besylate (Norvasc) 5 mg BID PO 12/28/20 21:00 01/02/21 09:18 Aspirin (Ecotrin) 81 mg DAILY PO 12/28/20 09:00 01/02/21 09:19 Atorvastatin Calcium (Lipitor) 40 mg QHS PO 12/28/20 21:00 01/01/21 20:45 Bisacodyl (Dulcolax Suppository) 10 mg DAILYPRN PRN [place] CONSTIPATION 12/27/20 18:30 Budesonide (Pulmicort Flexhaler) 2 puff RBID INH 12/28/20 08:00 01/02/21 08:12 Clopidogrel Bisulfate (PLAVix) 75 mg DAILY PO 12/28/20 09:00 01/02/21 12:00 DC 01/02/21 09:19 Dextrose (Dextrose 50%) 25 ml ASDIRECTED PRN IV SEE LABEL COMMENTS 12/27/20 18:30 Docusate Sodium (Colace) 100 mg BID PO 12/27/20 21:00 01/02/21 09:17 Duloxetine HCl (Cymbalta) 60 mg DAILY PO 12/28/20 09:00 01/02/21 09:18 Fluticasone Propionate (Flonase 0.05% Nasal [place]) 1 spray BID NARES 12/28/20 09:00 01/02/21 09:20 Furosemide (Lasix) 20 mg DAILY PO 12/29/20 09:00 01/02/21 09:19 Furosemide (Lasix) 40 mg DAILY PO 12/28/20 09:00 12/29/20 07:45 DC 12/28/20 12:40 Gabapentin (Neurontin) 100 mg QAM PO 12/28/20 09:00 12/31/20 07:25 DC 12/30/20 09:05 Gabapentin (Neurontin) 100 mg TID PO 12/31/20 09:00 01/02/21 17:20 Glucagon (Glucagon) 1 mg ASDIRECTED PRN SC SEE LABEL COMMENTS 12/27/20 18:30 Glucose (Glucose) 16 GM ASDIRECTED PRN PO SEE LABEL COMMENTS 12/27/20 18:30 Guaifenesin (Robitussin Tab) 400 mg TID PO 01/02/21 16:00 01/02/21 17:21 Heparin Sodium (Porcine) (Heparin) 5,000 units Q12H SC 12/28/20 09:00 01/02/21 09:19 Hydralazine HCl (Apresoline) 25 mg QID PO 12/27/20 21:00 12/28/20 10:28 DC 12/28/20 08:15 Hydralazine HCl (Apresoline) 50 mg Q6H PO 12/28/20 12:00 12/30/20 16:23 DC 12/30/20 05:31 Hydralazine HCl (Apresoline) 50 mg QID PO 12/28/20 13:00 12/28/20 10:58 DC Insulin Detemir (Levemir Insulin) 5 units DAILY SC 12/29/20 13:45 01/02/21 09:17 Insulin Detemir (Levemir Insulin) 10 units QHS SC 12/28/20 21:00 12/28/20 12:25 DC Insulin Detemir (Levemir Insulin) 10 units QHS SC 12/28/20 21:00 12/29/20 13:14 DC 12/28/20 21:01 Insulin Detemir (Levemir Insulin) 14 units QHS SC 12/29/20 21:00 01/01/21 20:44 Insulin Human Lispro (HumaLOG INSULIN) SEE PROTOCOL TABLE AC ME 12/28/20 07:30 01/02/21 12:45 Insulin Human Lispro (HumaLOG INSULIN) SEE PROTOCOL TABLE QHS ME 12/27/20 21:00 12/28/20 21:00 Levothyroxine Sodium (Synthroid) 125 mcg DAILY@06 PO 12/28/20 06:00 01/02/21 05:34 Lisinopril (Prinivil) 10 mg BID PO 12/30/20 21:00 01/02/21 09:19 Metoprolol Succinate (TopROL XL) 25 mg BID PO 12/29/20 21:00 01/02/21 09:19 Metoprolol Succinate (TopROL XL) 25 mg DAILY PO 12/28/20 09:00 12/29/20 09:38 DC 12/29/20 08:15 Nitroglycerin (Nitrobid 2%) hold for sbp<140 1 INCH Q4H TOP 12/29/20 10:00 12/30/20 16:23 DC 12/30/20 14:00 Oxybutynin Chloride (Ditropan) 5 mg BID PO 12/28/20 09:00 12/29/20 16:37 DC 12/29/20 08:13 Oxybutynin Chloride (Ditropan) 5 mg DAILY PO 12/30/20 09:00 01/02/21 09:18 Oxycodone HCl (Roxicodone, Oxyir) 5 mg Q8HP PRN PO >5/10 pain scale 12/29/20 09:45 Pantoprazole Sodium (Protonix) 40 mg DAILY PO 12/28/20 09:00 01/02/21 09:19 Ropinirole HCl (Requip) 1 mg QHS PO 12/28/20 21:00 12/28/20 11:39 DC Ropinirole HCl (Requip) 2 mg QHS PO 12/28/20 21:00 01/01/21 20:45 Saliva Substitute (Mouthkote) 2 sprays QID PRN [place] DRY MOUTH 12/29/20 17:00 Senna (Senokot) 1 tab QHS PO 12/27/20 21:00 01/01/21 20:45 Sodium Chloride ([place] Nasal [place]) 2 spray QID NA 01/02/21 13:00 01/02/21 17:21 MAYI CLINTON MD Jan 02, 2021 20:42
[2021-01-02] MEDS: LORATADINE 10 MG TAB PO SCH (21:43)
[2021-01-02] MEDS: SENNA 8.6 MG TAB (SENOKOT) PO SCH (21:43)
[2021-01-02] MEDS: rOPINIRole 2MG TAB PO SCH (21:44)
[2021-01-02] MEDS: ATORVASTATIN 20 MG TAB PO SCH (21:44)
[2021-01-03 05:21] VITALS: BP 139/61
[2021-01-03] MEDS: LEVOTHYROXINE 125MCG TABLET (0.125MG) PO SCH (06:05)
[2021-01-03] MEDS: BUDESONIDE 180MCG INHALER (PULMICORT FLEXHALER) INH SCH ×2 (07:12→20:00)
[2021-01-03] MEDS: HumaLOG INSULIN (NovoLOG) PER UNIT SC SCH ×4 (07:55→20:22)
[2021-01-03] MEDS: LEVEMIR (INSULIN DETEMIR) 1 UNITS/0.01ML SC SCH ×2 (07:55→20:18)
[2021-01-03] MEDS: HEPARIN SOD (PORCINE) 5000UNITS/ML 1ML VIAL/SYRINGE SC SCH ×2 (07:56→20:18)
[2021-01-03] MEDS: ALPRAZolam 0.25 MG TAB PO SCH ×2 (07:56→20:19)
[2021-01-03] MEDS: guaiFENesin 200 MG TAB PO SCH ×3 (07:58→20:19)
[2021-01-03] MEDS: amLODIPine 5 MG TAB PO SCH ×2 (07:58→20:20)
[2021-01-03] MEDS: DOCUSATE SODIUM 100MG CAPSULE PO SCH ×2 (07:59→20:19)
[2021-01-03] MEDS: oxyBUTYnin 5 MG TAB PO SCH (07:59)
[2021-01-03] MEDS: FUROSEMIDE 20 MG TAB PO SCH (07:59)
[2021-01-03] MEDS: GABAPENTIN 100 MG CAP PO SCH ×3 (07:59→20:19)
[2021-01-03] MEDS: DULoxetine 30 MG CAP (CYMBALTA) PO SCH (07:59)
[2021-01-03] MEDS: ASPIRIN 81MG ENTERIC TABLET PO SCH (08:00)
[2021-01-03] MEDS: METOPROLOL SUCC *XL* 25MG TAB (TopROL *XL*) PO SCH ×2 (08:00→20:21)
[2021-01-03] MEDS: PANTOPRAZOLE 40MG TAB (PROTONIX) PO SCH (08:00)
[2021-01-03] MEDS: REMEDY PHYTOPLEX Z-GUARD PASTE 113GM TUBE (FROM STOREROOM PRODUCT) TOP SCH ×3 (08:01→20:21)
[2021-01-03] MEDS: FLUTICASONE PROP 0.05% NASAL SPRAY 16 GM (FLONASE) NARES SCH ×2 (08:01→20:21)
[2021-01-03] MEDS: SODIUM CHLORIDE NASAL 0.65% SPRAY BTL (OCEAN) SCH ×4 (08:01→20:21)
--- NOTE | 2021-01-03 10:47 | IPNPDOC ---
Text Note Date of Service The patient was seen on 01/03/21. NOTE Patient seen and examined. Continues to participate in therapy well PHYSICAL EXAMINATION: GENERAL: Awake, alert and oriented to person, place and time, answering questions appropriately. HEENT: Pupils are round, reactive to light and accommodation. Extraocular muscles are intact. NECK: Right carotid endarterectomy postop changes, no erythema, induration or crepitus. Nontender. LUNGS: Clear to auscultation. No wheezing, rales or rhonchi. HEART: S1 and S2. Sinus rhythm. ABDOMEN: Soft, nontender and nondistended. Obese abdomen. No rebound or guarding. EXTREMITIES: No cyanosis or clubbing. Left elbow: Limited extension flexion due to pain, unable to raise to 90 degrees. Patient has no changes in sensation. Radial pulse is intact. SKIN: Warm, dry and well-perfused. [place] in color. ASSESSMENT AND PLAN: This is a 80-year-old female, full code, recent CVA with chronic left sided hemiparesis, chronic hypoxic respiratory failure on 2 liters of oxygen with COPD. Discharged from the medical floor on 12/27 status post right carotid endarterectomy, now with the following issues: 1) Hypertension: Continue on home medications, Norvasc has been added 2.5 mg 2) Right carotid artery stenosis with recent left hemiparesis from CVA in November 2020 status post right carotid endarterectomy by Dr. Servin on 12/23/2020. Per Dr. Servin, the patient is to be continued on Eliquis, aspirin and statin. Patient can stop the Plavix after 14 days. Outpatient follow-up with Vascular Surgery at hospital discharge 3) Type 2 diabetes, uncontrolled. Glucose fasting is 280 this morning on sliding scale, consistent carbohydrate diet, fingersticks q.a.c. h.s., titrate for better glycemic control. 4) Hypothyroidism with a history of Graves' and radiation: now on supplemental Synthroid, resumed on home dose. 5) COPD, appears to be compensated on 2 liters home oxygen and inhalers. Recent CVA with left sided hemiparesis, acute rehab services. Disposition as per primary. VS,Fishbone, I+O VS, Fishbone, I+O Vital Signs Date Time Temp Pulse Resp B/P (MAP) Pulse Ox O2 Delivery O2 Flow Rate FiO2 01/03/21 07:58 72 143/68 01/03/21 05:21 97.8 18 91 Nasal Cannula 2.0 I&O- Last 24 Hours up to 6 AM 01/03/21 06:00 Intake Total 660 ml Balance 660 ml DANIELE DURANT MD Jan 03, 2021 10:46
--- NOTE | 2021-01-03 12:22 | IPNPDOC ---
PM&R Progress Note DATE OF SERVICE: Jan 03, 2021 Dental Laboratory Manager Progress Note Subjective: Patient stating she still has some phlegm in the back of her throat that she can't cough up but that her sinus pressure is a little better. REVIEW OF SYSTEMS: The following is a completed review of systems and has been reviewed. Review of systems otherwise unremarkable. PAIN: Patient self reports no pain EYES: No recent vision changes EARS, NOSE, & THROAT: +dysphagia CARDIOVASCULAR: Denies chest pain or palpitations PULMONARY: Denies shortness of breath, mild cough GASTROINTESTINAL: Denies constipation/diarrhea GENITOURINARY: denies dysuria MUSCULOSKELETAL: left sided weakness NEUROLOGICAL:left sided paresis HEMATOLOGICAL: denies easy bruising SKIN: right neck incision PSYCHIATRIC: +anxious All other review of systems found to be negative. PHYSICAL EXAMINATION: VITAL SIGNS: Please see below. GENERAL: Pleasant and cooperative. No acute distress. HEENT: PERRL. Extraocular movements intact. Clear conjunctiva, very mild left facial droop, tongue midline CARDIOVASCULAR: Regular rate and rhythm. No murmurs, rubs, or gallops LUNGS: Clear to auscultation bilaterally. No wheezes. No rhonchi ABDOMEN: Soft, nontender, nondistended. Positive bowel sounds. Normal active bowel sounds NEUROLOGICAL: Alert and oriented times three. Cranial nerves II through XII grossly intact. Sensation grossly intact EXTREMITIES: 5\5 strength right upper extremity, 3+ LUE. 5\5 strength right lower extremity. 5-/5 strength in left lower extremity. +bilat LE edema SKIN: right neck incision c/d/i no swelling LABORATORY DATA: Please see below. ASSESSMENT:80-year-old F with past medical history of right sided carotid stenosis with CVAs who presents status post right CEA and recent stroke PLAN: 1. 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 Neuro- s/p 2 strokes, one September 2020 and most recent right lacunar infarct November 2020 with residual left sided weakness and facial droop due to severe right sided carotid artery stenosis s/p CEA performed 12-23-[address] Servin, c/u ASA and s/p 14 day course of Plavix, c/u statin 3. CArdiac- HTN with recently difficult to control BPs- better -diastolic CHF, fluid restrict, daily weights, c/u lasix -HLD- statin -medicine consulted to assist in overall management 4. Resp- COPD on home 02, c/u inhalers, duonebs, monitor for infection -c/u flonase, NS drops ordered, and claritin for sinus pressure -sputum cx ordered for complaint of throat/chest congestion, Resp panel is negative- low concern for PNA at this time 5. Endo- hx of DM c/u ISS, consistent carb diet 6. - overactive bladder, c/u oxybutynin (dose lowered to daily due to dry mouth) 7. GI ppx- protonix 8. DVT ppx- heparin 9. Psych- anxiety- Xanax 10. Pain- fibromyalgia c/u cymbalta and gabapentin (increased dosing for headaches which have improved) 11. Renal- patient with CKD, renal consulted to assist in BP management-renal US negative for renal artery stenosis- recs appreciated 12. Dispo- TBD Allergies Coded Allergies: Penicillins (Verified Allergy, Intermediate, rash, 12/09/20) Tetracyclines (Verified Allergy, Intermediate, rash, 12/09/20) Sulfa (Sulfonamide Antibiotics) (Verified Adverse Reaction, Mild, mouth sores, 12/09/20) Vital Signs Vital Signs Date Time Temp Pulse Resp B/P (MAP) Pulse Ox O2 Delivery O2 Flow Rate FiO2 01/03/21 07:58 72 143/68 01/03/21 05:21 97.8 18 91 Nasal Cannula 2.0 Laboratory Data Labs 24H Laboratory Tests 2 01/02/21 16:20: Bedside Glucose (Misc Panel) 197H 01/02/21 19:59: Bedside Glucose (Misc Panel) 265H 01/03/21 04:56: Bedside Glucose (Misc Panel) 207H 01/03/21 11:32: Bedside Glucose (Misc Panel) 225H Microbiology Microbiology 01/02/21 Respiratory Virus Panel (PCR) (RANI) - Final, Complete Current Medications Current Medications Current Medications Medications (Trade) Dose Ordered Sig/Mandi Route PRN Reason Start Time Stop Time Status Last Admin Dose Admin Acetaminophen (Tylenol Tab) 650 mg Q4HP PRN PO fever/MILD PAIN (PS 1-4) 12/27/20 18:30 12/28/20 21:01 Alprazolam (Xanax) 0.25 mg BID PO 12/28/20 09:00 01/03/21 07:56 Alprazolam (Xanax) 0.25 mg TIDP PRN PO ANXIETY 12/28/20 00:00 12/28/20 11:37 DC Amlodipine Besylate (Norvasc) 2.5 mg DAILY PO 12/28/20 06:40 12/28/20 11:06 DC 12/28/20 07:07 Amlodipine Besylate (Norvasc) 5 mg BID PO 12/28/20 21:00 01/03/21 07:58 Aspirin (Ecotrin) 81 mg DAILY PO 12/28/20 09:00 01/03/21 08:00 Atorvastatin Calcium (Lipitor) 40 mg QHS PO 12/28/20 21:00 01/02/21 21:44 Bisacodyl (Dulcolax Suppository) 10 mg DAILYPRN PRN [place] CONSTIPATION 12/27/20 18:30 Budesonide (Pulmicort Flexhaler) 2 puff RBID INH 12/28/20 08:00 01/03/21 07:12 Clopidogrel Bisulfate (PLAVix) 75 mg DAILY PO 12/28/20 09:00 01/02/21 12:00 DC 01/02/21 09:19 Dextrose (Dextrose 50%) 25 ml ASDIRECTED PRN IV SEE LABEL COMMENTS 12/27/20 18:30 Docusate Sodium (Colace) 100 mg BID PO 12/27/20 21:00 01/03/21 07:59 Duloxetine HCl (Cymbalta) 60 mg DAILY PO 12/28/20 09:00 01/03/21 07:59 Fluticasone Propionate (Flonase 0.05% Nasal [place]) 1 spray BID NARES 12/28/20 09:00 01/03/21 08:01 Furosemide (Lasix) 20 mg DAILY PO 12/29/20 09:00 01/03/21 07:59 Furosemide (Lasix) 40 mg DAILY PO 12/28/20 09:00 12/29/20 07:45 DC 12/28/20 12:40 Gabapentin (Neurontin) 100 mg QAM PO 12/28/20 09:00 12/31/20 07:25 DC 12/30/20 09:05 Gabapentin (Neurontin) 100 mg TID PO 12/31/20 09:00 01/03/21 07:59 Glucagon (Glucagon) 1 mg ASDIRECTED PRN SC SEE LABEL COMMENTS 12/27/20 18:30 Glucose (Glucose) 16 GM ASDIRECTED PRN PO SEE LABEL COMMENTS 12/27/20 18:30 Guaifenesin (Robitussin Tab) 400 mg TID PO 01/02/21 16:00 01/03/21 07:58 Heparin Sodium (Porcine) (Heparin) 5,000 units Q12H SC 12/28/20 09:00 01/03/21 07:56 Hydralazine HCl (Apresoline) 25 mg QID PO 12/27/20 21:00 12/28/20 10:28 DC 12/28/20 08:15 Hydralazine HCl (Apresoline) 50 mg Q6H PO 12/28/20 12:00 12/30/20 16:23 DC 12/30/20 05:31 Hydralazine HCl (Apresoline) 50 mg QID PO 12/28/20 13:00 12/28/20 10:58 DC Insulin Detemir (Levemir Insulin) 5 units DAILY SC 12/29/20 13:45 01/03/21 07:55 Insulin Detemir (Levemir Insulin) 10 units QHS SC 12/28/20 21:00 12/28/20 12:25 DC Insulin Detemir (Levemir Insulin) 10 units QHS SC 12/28/20 21:00 12/29/20 13:14 DC 12/28/20 21:01 Insulin Detemir (Levemir Insulin) 14 units QHS SC 12/29/20 21:00 01/02/21 21:45 Insulin Human Lispro (HumaLOG INSULIN) SEE PROTOCOL TABLE AC SC 12/28/20 07:30 01/03/21 12:11 Insulin Human Lispro (HumaLOG INSULIN) SEE PROTOCOL TABLE QHS SC 12/27/20 21:00 01/02/21 21:45 Levothyroxine Sodium (Synthroid) 125 mcg DAILY@06 PO 12/28/20 06:00 01/03/21 06:05 Lisinopril (Prinivil) 10 mg BID PO 12/30/20 21:00 01/03/21 07:58 Loratadine (Claritin) 10 mg QHS PO 01/02/21 21:00 01/02/21 21:43 Metoprolol Succinate (TopROL XL) 25 mg BID PO 12/29/20 21:00 01/03/21 08:00 Metoprolol Succinate (TopROL XL) 25 mg DAILY PO 12/28/20 09:00 12/29/20 09:38 DC 12/29/20 08:15 Nitroglycerin (Nitrobid 2%) hold for sbp<140 1 INCH Q4H [facility] 12/29/20 10:00 12/30/20 16:23 DC 12/30/20 14:00 Oxybutynin Chloride (Ditropan) 5 mg BID PO 12/28/20 09:00 12/29/20 16:37 DC 12/29/20 08:13 Oxybutynin Chloride (Ditropan) 5 mg DAILY PO 12/30/20 09:00 01/03/21 07:59 Oxycodone HCl (Roxicodone, Oxyir) 5 mg Q8HP PRN PO >5/10 pain scale 12/29/20 09:45 Pantoprazole Sodium (Protonix) 40 mg DAILY PO 12/28/20 09:00 01/03/21 08:00 Ropinirole HCl (Requip) 1 mg QHS PO 12/28/20 21:00 12/28/20 11:39 DC Ropinirole HCl (Requip) 2 mg QHS PO 12/28/20 21:00 01/02/21 21:44 Saliva Substitute (Mouthkote) 2 sprays QID PRN [place] DRY MOUTH 12/29/20 17:00 Senna (Senokot) 1 tab QHS PO 12/27/20 21:00 01/02/21 21:43 Sodium Chloride ([place] Nasal [place]) 2 spray QID NA 01/02/21 13:00 01/03/21 12:11 MAYI CLINTON MD Jan 03, 2021 12:21
[2021-01-03 14:00] VITALS: BP 139/65
[2021-01-03 20:00] VITALS: BP 152/70
[2021-01-03] MEDS: rOPINIRole 2MG TAB PO SCH (20:19)
[2021-01-03] MEDS: ATORVASTATIN 20 MG TAB PO SCH (20:20)
[2021-01-03] MEDS: LORATADINE 10 MG TAB PO SCH (20:20)
[2021-01-03] MEDS: SENNA 8.6 MG TAB (SENOKOT) PO SCH (20:20)
[2021-01-03 21:23] VITALS: BP 130/58
[2021-01-04] MEDS: LEVOTHYROXINE 125MCG TABLET (0.125MG) PO SCH (05:29)
[2021-01-04 06:00] VITALS: BP 160/70
[2021-01-04 06:21] LABS: BASO # 0.1 10^3/uL (0.0-0.2); BASO % 0.7 % (0.0-1.0); EOS # 0.4 10^3/uL (0.0-0.5); EOS % 4.6 % (0.0-3.0); HEMATOCRIT 32.1 % (36.0-47.0); HEMOGLOBIN 9.5 g/dl (12.0-15.5); LYMPH % 20.7 % (24.0-44.0); MEAN CORPUSCULAR HEMOGLOBIN 27.5 pg (27.0-33.0); MEAN CORPUSCULAR HGB CONC 29.6 g/dl (32.0-36.5); MEAN CORPUSCULAR VOLUME 92.8 fl (80.0-96.0); MONO # 0.7 10^3/uL (0.0-0.8); MONO % 7.1 % (2.0-8.0); NEUTROPHILS # 6.3 10^3/uL (1.5-8.5); NEUTROPHILS % 65.8 % (36.0-66.0); PLATELET COUNT, AUTOMATED 186 10^3/uL (150-450); RED BLOOD COUNT 3.46 10^6/uL (4.00-5.40); WHITE BLOOD COUNT 9.6 10^3/uL (4.0-10.0)
[2021-01-04 06:45] LABS: CALCIUM LEVEL 8.4 MG/DL (8.8-10.2); CREATININE FOR GFR 1.09 MG/DL (0.55-1.30); GLOMERULAR FILTRATION RATE 51.5 (>39); POTASSIUM SERUM 4.3 MEQ/L (3.5-5.1)
[2021-01-04] MEDS: BUDESONIDE 180MCG INHALER (PULMICORT FLEXHALER) INH SCH ×2 (07:11→21:00)
[2021-01-04] MEDS: GABAPENTIN 100 MG CAP PO SCH ×3 (08:09→20:56)
[2021-01-04] MEDS: guaiFENesin 200 MG TAB PO SCH ×3 (08:09→20:57)
[2021-01-04] MEDS: ALPRAZolam 0.25 MG TAB PO SCH ×2 (08:09→20:57)
[2021-01-04] MEDS: METOPROLOL SUCC *XL* 25MG TAB (TopROL *XL*) PO SCH ×2 (08:09→20:59)
[2021-01-04] MEDS: PANTOPRAZOLE 40MG TAB (PROTONIX) PO SCH (08:10)
[2021-01-04] MEDS: DULoxetine 30 MG CAP (CYMBALTA) PO SCH (08:10)
[2021-01-04] MEDS: oxyBUTYnin 5 MG TAB PO SCH (08:10)
[2021-01-04] MEDS: DOCUSATE SODIUM 100MG CAPSULE PO SCH ×2 (08:10→20:55)
[2021-01-04] MEDS: ASPIRIN 81MG ENTERIC TABLET PO SCH (08:10)
[2021-01-04] MEDS: FUROSEMIDE 20 MG TAB PO SCH (08:10)
[2021-01-04] MEDS: amLODIPine 5 MG TAB PO SCH ×2 (08:10→20:56)
[2021-01-04] MEDS: HumaLOG INSULIN (NovoLOG) PER UNIT SC SCH ×4 (08:11→21:00)
[2021-01-04] MEDS: HEPARIN SOD (PORCINE) 5000UNITS/ML 1ML VIAL/SYRINGE SC SCH ×2 (08:11→20:55)
[2021-01-04] MEDS: LEVEMIR (INSULIN DETEMIR) 1 UNITS/0.01ML SC SCH ×2 (08:11→20:55)
[2021-01-04] MEDS: SODIUM CHLORIDE NASAL 0.65% SPRAY BTL (OCEAN) SCH ×4 (08:12→21:01)
[2021-01-04] MEDS: FLUTICASONE PROP 0.05% NASAL SPRAY 16 GM (FLONASE) NARES SCH ×2 (08:12→21:00)
[2021-01-04] MEDS: REMEDY PHYTOPLEX Z-GUARD PASTE 113GM TUBE (FROM STOREROOM PRODUCT) TOP SCH ×3 (08:12→21:03)
--- NOTE | 2021-01-04 08:36 | IPNPDOC ---
PM&R Progress Note DATE OF SERVICE: Jan 04, 2021 [facility] Progress Note Subjective: Patient lily in therapy stating she feels good, has no complaints today and thinks she will be safe to go home alone at a wheelchair level. REVIEW OF SYSTEMS: The following is a completed review of systems and has been reviewed. Review of systems otherwise unremarkable. PAIN: Patient self reports no pain EYES: No recent vision changes EARS, NOSE, & THROAT: +dysphagia (improving) CARDIOVASCULAR: Denies chest pain or palpitations PULMONARY: Denies shortness of breath, mild cough GASTROINTESTINAL: Denies constipation/diarrhea GENITOURINARY: denies dysuria MUSCULOSKELETAL: left sided weakness NEUROLOGICAL:left sided paresis HEMATOLOGICAL: denies easy bruising SKIN: right neck incision PSYCHIATRIC: +anxious All other review of systems found to be negative. PHYSICAL EXAMINATION: VITAL SIGNS: Please see below. GENERAL: Pleasant and cooperative. No acute distress. HEENT: PERRL. Extraocular movements intact. Clear conjunctiva, very mild left facial droop, tongue midline CARDIOVASCULAR: Regular rate and rhythm. No murmurs, rubs, or gallops LUNGS: Clear to auscultation bilaterally. No wheezes. No rhonchi ABDOMEN: Soft, nontender, nondistended. Positive bowel sounds. Normal active bowel sounds NEUROLOGICAL: Alert and oriented times three. Cranial nerves II through XII grossly intact. Sensation grossly intact EXTREMITIES: 5\5 strength right upper extremity, 3+ LUE. 5\5 strength right lower extremity. 5-/5 strength in left lower extremity. +bilat LE edema (improving) SKIN: right neck incision c/d/i no swelling LABORATORY DATA: Please see below. ASSESSMENT:80-year-old F with past medical history of right sided carotid stenosis with CVAs who presents status post right CEA and recent stroke PLAN: 1. 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 Neuro- s/p 2 strokes, one September 2020 and most recent right lacunar infarct November 2020 with residual left sided weakness and facial droop due to severe right sided carotid artery stenosis s/p CEA performed 12-23-[address] Servin, c/u ASA and s/p 14 day course of Plavix, c/u statin 3. CArdiac- HTN with recently difficult to control BPs- better overall, however will increase metoprolol dosing today and add hydralazine with holding par ameters -diastolic CHF, fluid restrict, daily weights, c/u lasix -HLD- statin -medicine consulted to assist in overall management 4. Resp- COPD on home 02, c/u inhalers, duonebs, monitor for infection -c/u flonase, NS drops ordered, and claritin for sinus pressure-improved -sputum cx ordered for complaint of throat/chest congestion which has improved, Resp panel is negative- low concern for PNA at this time- 5. Endo- hx of DM c/u ISS, consistent carb diet 6. - overactive bladder, c/u oxybutynin (dose lowered to daily due to dry mouth) 7. GI ppx- protonix 8. DVT ppx- heparin 9. Psych- anxiety- Xanax 10. Pain- fibromyalgia c/u cymbalta and gabapentin (increased dosing for headaches which have improved) 11. Renal- patient with CKD, renal consulted to assist in BP management-renal US negative for renal artery stenosis- recs appreciated 12. Dispo- 01-10-21 to home, wheelchair level Allergies Coded Allergies: Penicillins (Verified Allergy, Intermediate, rash, 12/09/20) Tetracyclines (Verified Allergy, Intermediate, rash, 12/09/20) Sulfa (Sulfonamide Antibiotics) (Verified Adverse Reaction, Mild, mouth sores, 12/09/20) Vital Signs Vital Signs Date Time Temp Pulse Resp B/P (MAP) Pulse Ox O2 Delivery O2 Flow Rate FiO2 01/04/21 08:10 160/70 01/04/21 08:10 65 01/04/21 06:00 97.4 18 88 Room Air 01/03/21 19:30 2.0 Laboratory Data CBC/BMP Laboratory Tests 01/04/21 05:33 Labs 24H Laboratory Tests 2 01/03/21 11:32: Bedside Glucose (Misc Panel) 225H 01/03/21 16:19: Bedside Glucose (Misc Panel) 170H 01/03/21 20:05: Bedside Glucose (Misc Panel) 192H 01/04/21 05:33: Immature Granulocyte % (Auto) 1.1, Neutrophils (%) (Auto) 65.8, Lymphocytes (%) (Auto) 20.7L, Monocytes (%) (Auto) 7.1, Eosinophils (%) (Auto) 4.6H, Basophils (%) (Auto) 0.7, Neutrophils # (Auto) 6.3, Lymphocytes # (Auto) 2.0, Monocytes # (Auto) 0.7, Eosinophils # (Auto) 0.4, Basophils # (Auto) 0.1, Nucleated Red Blood Cells % (auto) 0.0, Anion Gap 3L, Glomerular Filtration Rate 51.5, Calcium Level 8.4L Microbiology Microbiology 01/02/21 Respiratory Virus Panel (PCR) (RANI) - Final, Complete Current Medications Current Medications Current Medications Medications (Trade) Dose Ordered Sig/Mandi Route PRN Reason Start Time Stop Time Status Last Admin Dose Admin Acetaminophen (Tylenol Tab) 650 mg Q4HP PRN PO fever/MILD PAIN (PS 1-4) 12/27/20 18:30 12/28/20 21:01 Alprazolam (Xanax) 0.25 mg BID PO 12/28/20 09:00 01/04/21 08:09 Alprazolam (Xanax) 0.25 mg TIDP PRN PO ANXIETY 12/28/20 00:00 12/28/20 11:37 DC Amlodipine Besylate (Norvasc) 2.5 mg DAILY PO 12/28/20 06:40 12/28/20 11:06 DC 12/28/20 07:07 Amlodipine Besylate (Norvasc) 5 mg BID PO 12/28/20 21:00 01/04/21 08:10 Aspirin (Ecotrin) 81 mg DAILY PO 12/28/20 09:00 01/04/21 08:10 Atorvastatin Calcium (Lipitor) 40 mg QHS PO 12/28/20 21:00 01/03/21 20:20 Bisacodyl (Dulcolax Suppository) 10 mg DAILYPRN PRN [place] CONSTIPATION 12/27/20 18:30 Budesonide (Pulmicort Flexhaler) 2 puff RBID INH 12/28/20 08:00 01/04/21 07:11 Clopidogrel Bisulfate (PLAVix) 75 mg DAILY PO 12/28/20 09:00 01/02/21 12:00 DC 01/02/21 09:19 Dextrose (Dextrose 50%) 25 ml ASDIRECTED PRN IV SEE LABEL COMMENTS 12/27/20 18:30 Docusate Sodium (Colace) 100 mg BID PO 12/27/20 21:00 01/04/21 08:10 Duloxetine HCl (Cymbalta) 60 mg DAILY PO 12/28/20 09:00 01/04/21 08:10 Fluticasone Propionate (Flonase 0.05% Nasal [place]) 1 spray BID NARES 12/28/20 09:00 01/03/21 20:21 Furosemide (Lasix) 20 mg DAILY PO 12/29/20 09:00 01/04/21 08:31 DC 01/04/21 08:10 Furosemide (Lasix) 40 mg DAILY PO 12/28/20 09:00 12/29/20 07:45 DC 12/28/20 12:40 Furosemide (Lasix) 40 mg DAILY PO 01/05/21 09:00 Gabapentin (Neurontin) 100 mg QAM PO 12/28/20 09:00 12/31/20 07:25 DC 12/30/20 09:05 Gabapentin (Neurontin) 100 mg TID PO 12/31/20 09:00 01/04/21 08:09 Glucagon (Glucagon) 1 mg ASDIRECTED PRN SC SEE LABEL COMMENTS 12/27/20 18:30 Glucose (Glucose) 16 GM ASDIRECTED PRN PO SEE LABEL COMMENTS 12/27/20 18:30 Guaifenesin (Robitussin Tab) 400 mg TID PO 01/02/21 16:00 01/04/21 08:09 Heparin Sodium (Porcine) (Heparin) 5,000 units Q12H SC 12/28/20 09:00 01/04/21 08:11 Hydralazine HCl (Apresoline) 25 mg QID PO 12/27/20 21:00 12/28/20 10:28 DC 12/28/20 08:15 Hydralazine HCl (Apresoline) 50 mg Q6H PO 12/28/20 12:00 12/30/20 16:23 DC 12/30/20 05:31 Hydralazine HCl (Apresoline) 50 mg QID PO 12/28/20 13:00 12/28/20 10:58 DC Insulin Detemir (Levemir Insulin) 5 units DAILY SC 12/29/20 13:45 01/04/21 08:11 Insulin Detemir (Levemir Insulin) 10 units QHS SC 12/28/20 21:00 12/28/20 12:25 DC Insulin Detemir (Levemir Insulin) 10 units QHS SC 12/28/20 21:00 12/29/20 13:14 DC 12/28/20 21:01 Insulin Detemir (Levemir Insulin) 14 units QHS SC 12/29/20 21:00 01/03/21 20:18 Insulin Human Lispro (HumaLOG INSULIN) SEE PROTOCOL TABLE AC CT 12/28/20 07:30 01/04/21 08:11 Insulin Human Lispro (HumaLOG INSULIN) SEE PROTOCOL TABLE QHS CT 12/27/20 21:00 01/02/21 21:45 Levothyroxine Sodium (Synthroid) 125 mcg DAILY@06 PO 12/28/20 06:00 01/04/21 05:29 Lisinopril (Prinivil) 10 mg BID PO 12/30/20 21:00 01/04/21 08:10 Loratadine (Claritin) 10 mg QHS PO 01/02/21 21:00 01/03/21 20:20 Metoprolol Succinate (TopROL XL) 25 mg BID PO 12/29/20 21:00 01/04/21 08:09 Metoprolol Succinate (TopROL XL) 25 mg DAILY PO 12/28/20 09:00 12/29/20 09:38 DC 12/29/20 08:15 Nitroglycerin (Nitrobid 2%) hold for sbp<140 1 INCH Q4H [facility] 12/29/20 10:00 12/30/20 16:23 DC 12/30/20 14:00 Oxybutynin Chloride (Ditropan) 5 mg BID PO 12/28/20 09:00 12/29/20 16:37 DC 12/29/20 08:13 Oxybutynin Chloride (Ditropan) 5 mg DAILY PO 12/30/20 09:00 01/04/21 08:10 Oxycodone HCl (Roxicodone, Oxyir) 5 mg Q8HP PRN PO >5/10 pain scale 12/29/20 09:45 Pantoprazole Sodium (Protonix) 40 mg DAILY PO 12/28/20 09:00 01/04/21 08:10 Ropinirole HCl (Requip) 1 mg QHS PO 12/28/20 21:00 12/28/20 11:39 DC Ropinirole HCl (Requip) 2 mg QHS PO 12/28/20 21:00 01/03/21 20:19 Saliva Substitute (Mouthkote) 2 sprays QID PRN MT DRY MOUTH 12/29/20 17:00 Senna (Senokot) 1 tab QHS PO 12/27/20 21:00 01/03/21 20:20 Sodium Chloride ([place] Nasal [place]) 2 spray QID NA 01/02/21 13:00 01/04/21 08:12 MAYI CLINTON MD Jan 04, 2021 08:36
[2021-01-04 14:00] VITALS: BP 140/52
[2021-01-04] MEDS: **hydrALAZINE HCL** 25 MG TAB PO SCH ×2 (17:00→21:00)
[2021-01-04 17:05] VITALS: BP 138/72
[2021-01-04 20:15] VITALS: BP 140/65
[2021-01-04] MEDS: rOPINIRole 2MG TAB PO SCH (20:56)
[2021-01-04] MEDS: SENNA 8.6 MG TAB (SENOKOT) PO SCH (20:57)
[2021-01-04] MEDS: LORATADINE 10 MG TAB PO SCH (20:57)
[2021-01-04] MEDS: ATORVASTATIN 20 MG TAB PO SCH (20:59)
[2021-01-04] MEDS ORDERED: amLODIPine 5 MG TAB PO SCH (21:00)
[2021-01-05] MEDS: LEVOTHYROXINE 125MCG TABLET (0.125MG) PO SCH (05:49)
[2021-01-05 06:01] VITALS: BP 155/78
[2021-01-05 06:02] VITALS: BP 160/76
[2021-01-05] MEDS: BUDESONIDE 180MCG INHALER (PULMICORT FLEXHALER) INH SCH ×2 (07:31→20:11)
[2021-01-05] MEDS: ALPRAZolam 0.25 MG TAB PO SCH ×2 (07:48→21:40)
[2021-01-05] MEDS: guaiFENesin 200 MG TAB PO SCH ×3 (07:48→21:39)
[2021-01-05] MEDS: DULoxetine 30 MG CAP (CYMBALTA) PO SCH (07:49)
[2021-01-05] MEDS: PANTOPRAZOLE 40MG TAB (PROTONIX) PO SCH (07:50)
[2021-01-05] MEDS: amLODIPine 5 MG TAB PO SCH ×2 (07:52→21:40)
[2021-01-05] MEDS: oxyBUTYnin 5 MG TAB PO SCH (07:52)
[2021-01-05] MEDS: **hydrALAZINE HCL** 25 MG TAB PO SCH ×4 (07:52→21:41)
[2021-01-05] MEDS: DOCUSATE SODIUM 100MG CAPSULE PO SCH ×2 (07:53→21:40)
[2021-01-05] MEDS: GABAPENTIN 100 MG CAP PO SCH ×3 (07:53→21:41)
[2021-01-05] MEDS: METOPROLOL SUCC *XL* 25MG TAB (TopROL *XL*) PO SCH ×2 (07:53→21:40)
[2021-01-05] MEDS: FUROSEMIDE 20 MG TAB PO SCH (07:54)
[2021-01-05] MEDS: ASPIRIN 81MG ENTERIC TABLET PO SCH (07:55)
[2021-01-05] MEDS: LEVEMIR (INSULIN DETEMIR) 1 UNITS/0.01ML SC SCH ×2 (08:15→21:42)
[2021-01-05] MEDS: HumaLOG INSULIN (NovoLOG) PER UNIT SC SCH ×4 (08:16→21:00)
[2021-01-05] MEDS: HEPARIN SOD (PORCINE) 5000UNITS/ML 1ML VIAL/SYRINGE SC SCH ×2 (08:16→21:41)
[2021-01-05] MEDS: FLUTICASONE PROP 0.05% NASAL SPRAY 16 GM (FLONASE) NARES SCH ×2 (08:17→21:43)
[2021-01-05] MEDS: SODIUM CHLORIDE NASAL 0.65% SPRAY BTL (OCEAN) SCH ×4 (08:17→21:43)
[2021-01-05] MEDS: REMEDY PHYTOPLEX Z-GUARD PASTE 113GM TUBE (FROM STOREROOM PRODUCT) TOP SCH ×3 (08:17→21:00)
[2021-01-05] MEDS ORDERED: FUROSEMIDE 40 MG TAB PO SCH (09:00)
[2021-01-05 10:00] VITALS: BP 120/60
--- NOTE | 2021-01-05 10:45 | IPNPDOC ---
PM&R Progress Note DATE OF SERVICE: Jan 05, 2021 [facility] Progress Note Subjective: Patient seen in her room reporting she feels good, still has some phlegm in the back of her throat, but denies worsening cough. REVIEW OF SYSTEMS: The following is a completed review of systems and has been reviewed. Review of systems otherwise unremarkable. PAIN: Patient self reports no pain EYES: No recent vision changes EARS, NOSE, & THROAT: +dysphagia (improving) CARDIOVASCULAR: Denies chest pain or palpitations PULMONARY: Denies shortness of breath, mild cough GASTROINTESTINAL: Denies constipation/diarrhea GENITOURINARY: denies dysuria MUSCULOSKELETAL: left sided weakness NEUROLOGICAL:left sided paresis HEMATOLOGICAL: denies easy bruising SKIN: right neck incision PSYCHIATRIC: +anxious All other review of systems found to be negative. PHYSICAL EXAMINATION: VITAL SIGNS: Please see below. GENERAL: Pleasant and cooperative. No acute distress. HEENT: PERRL. Extraocular movements intact. Clear conjunctiva, very mild left facial droop, tongue midline CARDIOVASCULAR: Regular rate and rhythm. No murmurs, rubs, or gallops LUNGS: Clear to auscultation bilaterally. No wheezes. No rhonchi ABDOMEN: Soft, nontender, nondistended. Positive bowel sounds. Normal active bowel sounds NEUROLOGICAL: Alert and oriented times three. Cranial nerves II through XII grossly intact. Sensation grossly intact EXTREMITIES: 5\5 strength right upper extremity, 3+ LUE. 5\5 strength right lower extremity. 5-/5 strength in left lower extremity. +bilat LE edema (improving) SKIN: right neck incision c/d/i no swelling LABORATORY DATA: Please see below. ASSESSMENT:80-year-old F with past medical history of right sided carotid stenosis with CVAs who presents status post right CEA and recent stroke PLAN: 1. Rehab- PT/OT advance mobility and ADLs, energy conservation, strengthen/stretch/maintain ROM all 4 limbs- ambulating with RW -[employer]- cog and swallow eval 2. Neuro- s/p 2 strokes, one September 2020 and most recent right lacunar infarct November 2020 with residual left sided weakness and facial droop due to severe right sided carotid artery stenosis s/p CEA performed 12-23-[address] Servin, c/u ASA and s/p 14 day course of Plavix, c/u statin 3. CArdiac- HTN with recently difficult to control BPs- better overall, increased metoprolol and added hydralazine with holding parameters -diastolic CHF, fluid restrict, daily weights, c/u lasix -HLD- statin -medicine consulted to assist in overall management 4. Resp- COPD on home 02, c/u inhalers, duonebs, monitor for infection -c/u flonase, NS drops ordered, and claritin for sinus pressure-improved -sputum cx ordered for complaint of throat/chest congestion which has improved, Resp panel is negative- low concern for PNA at this time- 5. Endo- hx of DM c/u ISS, consistent carb diet 6. - overactive bladder, c/u oxybutynin (dose lowered to daily due to dry mouth) 7. GI ppx- protonix 8. DVT ppx- heparin 9. Psych- anxiety- Xanax 10. Pain- fibromyalgia c/u cymbalta and gabapentin (increased dosing for headaches which have improved) 11. Renal- patient with CKD, renal consulted to assist in BP management-renal US negative for renal artery stenosis- recs appreciated 12. Dispo- 01-10-21 to home, wheelchair level Allergies Coded Allergies: Penicillins (Verified Allergy, Intermediate, rash, 12/09/20) Tetracyclines (Verified Allergy, Intermediate, rash, 12/09/20) Sulfa (Sulfonamide Antibiotics) (Verified Adverse Reaction, Mild, mouth sores, 12/09/20) Vital Signs Vital Signs Date Time Temp Pulse Resp B/P (MAP) Pulse Ox O2 Delivery O2 Flow Rate FiO2 01/05/21 10:00 64 120/60 (80) 01/05/21 08:04 2.0 01/05/21 06:01 97.4 18 99 Nasal Cannula Laboratory Data Labs 24H Laboratory Tests 2 01/04/21 11:23: Bedside Glucose (Misc Panel) 304H 01/04/21 16:38: Bedside Glucose (Misc Panel) 135H 01/04/21 19:59: Bedside Glucose (Misc Panel) 151H 01/05/21 06:09: Bedside Glucose (Misc Panel) 184H Microbiology Microbiology 01/02/21 Respiratory Virus Panel (PCR) (RANI) - Final, Complete Current Medications Current Medications Current Medications Medications (Trade) Dose Ordered Sig/Mandi Route PRN Reason Start Time Stop Time Status Last Admin Dose Admin Acetaminophen (Tylenol Tab) 650 mg Q4HP PRN PO fever/MILD PAIN (PS 1-4) 12/27/20 18:30 12/28/20 21:01 Alprazolam (Xanax) 0.25 mg BID PO 12/28/20 09:00 01/05/21 07:48 Alprazolam (Xanax) 0.25 mg TIDP PRN PO ANXIETY 12/28/20 00:00 12/28/20 11:37 DC Amlodipine Besylate (Norvasc) 2.5 mg DAILY PO 12/28/20 06:40 12/28/20 11:06 DC 12/28/20 07:07 Amlodipine Besylate (Norvasc) 5 mg BID PO 12/28/20 21:00 01/04/21 14:21 DC 01/04/21 08:10 Amlodipine Besylate (Norvasc) 5 mg BID PO 01/04/21 21:00 01/05/21 07:52 Amlodipine Besylate (Norvasc) 10 mg BID PO 01/04/21 21:00 01/04/21 14:24 DC Aspirin (Ecotrin) 81 mg DAILY PO 12/28/20 09:00 01/05/21 07:55 Atorvastatin Calcium (Lipitor) 40 mg QHS PO 12/28/20 21:00 01/04/21 20:59 Bisacodyl (Dulcolax Suppository) 10 mg DAILYPRN PRN [place] CONSTIPATION 12/27/20 18:30 Budesonide (Pulmicort Flexhaler) 2 puff RBID INH 12/28/20 08:00 01/05/21 07:31 Clopidogrel Bisulfate (PLAVix) 75 mg DAILY PO 12/28/20 09:00 01/02/21 12:00 DC 01/02/21 09:19 Dextrose (Dextrose 50%) 25 ml ASDIRECTED PRN IV SEE LABEL COMMENTS 12/27/20 18:30 Docusate Sodium (Colace) 100 mg BID PO 12/27/20 21:00 01/04/21 20:55 Duloxetine HCl (Cymbalta) 60 mg DAILY PO 12/28/20 09:00 01/05/21 07:49 Fluticasone Propionate (Flonase 0.05% Nasal [place]) 1 spray BID NARES 12/28/20 09:00 01/05/21 08:17 Furosemide (Lasix) 20 mg DAILY PO 12/29/20 09:00 01/04/21 08:31 DC 01/04/21 08:10 Furosemide (Lasix) 20 mg DAILY PO 01/05/21 09:00 01/05/21 07:54 Furosemide (Lasix) 40 mg DAILY PO 12/28/20 09:00 12/29/20 07:45 DC 12/28/20 12:40 Furosemide (Lasix) 40 mg DAILY PO 01/05/21 09:00 01/04/21 08:36 DC Gabapentin (Neurontin) 100 mg QAM PO 12/28/20 09:00 12/31/20 07:25 DC 12/30/20 09:05 Gabapentin (Neurontin) 100 mg TID PO 12/31/20 09:00 01/05/21 07:53 Glucagon (Glucagon) 1 mg ASDIRECTED PRN SC SEE LABEL COMMENTS 12/27/20 18:30 Glucose (Glucose) 16 GM ASDIRECTED PRN PO SEE LABEL COMMENTS 12/27/20 18:30 Guaifenesin (Robitussin Tab) 400 mg TID PO 01/02/21 16:00 01/05/21 07:48 Heparin Sodium (Porcine) (Heparin) 5,000 units Q12H SC 12/28/20 09:00 01/05/21 08:16 Hydralazine HCl (Apresoline) 25 mg QID PO 12/27/20 21:00 12/28/20 10:28 DC 12/28/20 08:15 Hydralazine HCl (Apresoline) 25 mg QID PO 01/04/21 17:00 01/05/21 07:52 Hydralazine HCl (Apresoline) 50 mg Q6H PO 12/28/20 12:00 12/30/20 16:23 DC 12/30/20 05:31 Hydralazine HCl (Apresoline) 50 mg QID PO 12/28/20 13:00 12/28/20 10:58 DC Insulin Detemir (Levemir Insulin) 5 units DAILY SC 12/29/20 13:45 01/05/21 08:15 Insulin Detemir (Levemir Insulin) 10 units QHS SC 12/28/20 21:00 12/28/20 12:25 DC Insulin Detemir (Levemir Insulin) 10 units QHS NE 12/28/20 21:00 12/29/20 13:14 DC 12/28/20 21:01 Insulin Detemir (Levemir Insulin) 14 units QHS SC 12/29/20 21:00 01/04/21 20:55 Insulin Human Lispro (HumaLOG INSULIN) SEE PROTOCOL TABLE AC NE 12/28/20 07:30 01/05/21 08:16 Insulin Human Lispro (HumaLOG INSULIN) SEE PROTOCOL TABLE QHS NE 12/27/20 21:00 01/02/21 21:45 Levothyroxine Sodium (Synthroid) 125 mcg DAILY@06 PO 12/28/20 06:00 01/05/21 05:49 Lisinopril (Prinivil) 10 mg BID PO 12/30/20 21:00 01/05/21 07:52 Loratadine (Claritin) 10 mg QHS PO 01/02/21 21:00 01/04/21 20:57 Metoprolol Succinate (TopROL XL) 25 mg BID PO 12/29/20 21:00 01/04/21 14:24 DC 01/04/21 08:09 Metoprolol Succinate (TopROL XL) 25 mg DAILY PO 12/28/20 09:00 12/29/20 09:38 DC 12/29/20 08:15 Metoprolol Succinate (TopROL XL) 37.5 mg BID PO 01/04/21 21:00 01/05/21 07:53 Nitroglycerin (Nitrobid 2%) hold for sbp<140 1 INCH Q4H [facility] 12/29/20 10:00 12/30/20 16:23 [place] 12/30/20 14:00 Oxybutynin Chloride (Ditropan) 5 mg BID PO 12/28/20 09:00 12/29/20 16:37 DC 12/29/20 08:13 Oxybutynin Chloride (Ditropan) 5 mg DAILY PO 12/30/20 09:00 01/05/21 07:52 Oxycodone HCl (Roxicodone, Oxyir) 5 mg Q8HP PRN PO >5/10 pain scale 12/29/20 09:45 01/04/21 10:01 DC Pantoprazole Sodium (Protonix) 40 mg DAILY PO 12/28/20 09:00 01/05/21 07:50 Ropinirole HCl (Requip) 1 mg QHS PO 12/28/20 21:00 12/28/20 11:39 DC Ropinirole HCl (Requip) 2 mg QHS PO 12/28/20 21:00 01/04/21 20:56 Saliva Substitute (Mouthkote) 2 sprays QID PRN MT DRY MOUTH 12/29/20 17:00 Senna (Senokot) 1 tab QHS PO 12/27/20 21:00 01/04/21 20:57 Sodium Chloride ([place] Nasal [place]) 2 spray QID NA 01/02/21 13:00 01/05/21 08:17 MAYI CLINTON MD Jan 05, 2021 10:45
[2021-01-05 14:00] VITALS: BP 138/58
[2021-01-05 20:15] VITALS: BP 150/77
[2021-01-05] MEDS: LORATADINE 10 MG TAB PO SCH (21:41)
[2021-01-05] MEDS: rOPINIRole 2MG TAB PO SCH (21:41)
[2021-01-05] MEDS: SENNA 8.6 MG TAB (SENOKOT) PO SCH (21:41)
[2021-01-05] MEDS: ATORVASTATIN 20 MG TAB PO SCH (21:41)
[2021-01-06] MEDS: LEVOTHYROXINE 125MCG TABLET (0.125MG) PO SCH (05:36)
[2021-01-06 06:24] VITALS: BP 158/71
[2021-01-06 06:41] VITALS: BP 144/58
[2021-01-06] MEDS: BUDESONIDE 180MCG INHALER (PULMICORT FLEXHALER) INH SCH ×2 (07:06→20:00)
[2021-01-06 08:12] LABS: BASO # 0.1 10^3/uL (0.0-0.2); BASO % 0.8 % (0.0-1.0); EOS # 0.4 10^3/uL (0.0-0.5); HEMATOCRIT 33.2 % (36.0-47.0); HEMOGLOBIN 9.7 g/dl (12.0-15.5); LYMPH # 1.8 10^3/uL (1.5-5.0); LYMPH % 18.2 % (24.0-44.0); MEAN CORPUSCULAR HEMOGLOBIN 27.2 pg (27.0-33.0); MEAN CORPUSCULAR HGB CONC 29.2 g/dl (32.0-36.5); MEAN CORPUSCULAR VOLUME 93.3 fl (80.0-96.0); MONO # 0.8 10^3/uL (0.0-0.8); NEUTROPHILS # 6.5 10^3/uL (1.5-8.5); NEUTROPHILS % 67.8 % (36.0-66.0); PLATELET COUNT, AUTOMATED 190 10^3/uL (150-450); RED BLOOD COUNT 3.56 10^6/uL (4.00-5.40); WHITE BLOOD COUNT 9.6 10^3/uL (4.0-10.0)
[2021-01-06 08:40] LABS: CALCIUM LEVEL 8.5 MG/DL (8.8-10.2); CREATININE FOR GFR 1.01 MG/DL (0.55-1.30); GLOMERULAR FILTRATION RATE 56.3 (>39); POTASSIUM SERUM 4.1 MEQ/L (3.5-5.1)
--- NOTE | 2021-01-06 10:02 | REP ---
INDICATION: cough r/o infiltrate. COMPARISON: Multiple the latest 12/31/2020 a portable exam TECHNIQUE: PA and lateral views FINDINGS: The superior mediastinal structures are midline. There is cardiomegaly status quo. There is a minimal diffuse increase in the interstitial markings with slight haziness throughout the pulmonary vascularity, significantly improved from the prior exam.. The diaphragmatic surfaces of the lungs are regular, and the costophrenic angles are clear. Imaged osseous structures are intact. IMPRESSION: Improved <Electronically signed by Pietro Godoy > 01/06/21 [id number]
[2021-01-06] MEDS: SODIUM CHLORIDE NASAL 0.65% SPRAY BTL (OCEAN) SCH ×4 (10:27→20:38)
[2021-01-06] MEDS: LEVEMIR (INSULIN DETEMIR) 1 UNITS/0.01ML SC SCH ×2 (10:28→20:38)
[2021-01-06] MEDS: guaiFENesin 200 MG TAB PO SCH ×3 (10:29→20:37)
[2021-01-06] MEDS: DOCUSATE SODIUM 100MG CAPSULE PO SCH ×2 (10:29→20:36)
[2021-01-06] MEDS: HumaLOG INSULIN (NovoLOG) PER UNIT SC SCH ×4 (10:29→20:39)
[2021-01-06] MEDS: amLODIPine 5 MG TAB PO SCH ×2 (10:30→20:36)
[2021-01-06] MEDS: ALPRAZolam 0.25 MG TAB PO SCH ×2 (10:30→20:36)
[2021-01-06] MEDS: oxyBUTYnin 5 MG TAB PO SCH (10:30)
[2021-01-06] MEDS: PANTOPRAZOLE 40MG TAB (PROTONIX) PO SCH (10:30)
[2021-01-06] MEDS: GABAPENTIN 100 MG CAP PO SCH ×3 (10:31→20:37)
[2021-01-06] MEDS: **hydrALAZINE HCL** 25 MG TAB PO SCH ×4 (10:31→20:36)
[2021-01-06] MEDS: METOPROLOL SUCC *XL* 25MG TAB (TopROL *XL*) PO SCH ×2 (10:32→20:37)
[2021-01-06] MEDS: FUROSEMIDE 20 MG TAB PO SCH (10:33)
[2021-01-06] MEDS: ASPIRIN 81MG ENTERIC TABLET PO SCH (10:33)
[2021-01-06] MEDS: DULoxetine 30 MG CAP (CYMBALTA) PO SCH (10:33)
[2021-01-06] MEDS: FLUTICASONE PROP 0.05% NASAL SPRAY 16 GM (FLONASE) NARES SCH ×2 (10:34→20:38)
[2021-01-06] MEDS: REMEDY PHYTOPLEX Z-GUARD PASTE 113GM TUBE (FROM STOREROOM PRODUCT) TOP SCH ×3 (10:34→20:38)
[2021-01-06] MEDS: HEPARIN SOD (PORCINE) 5000UNITS/ML 1ML VIAL/SYRINGE SC SCH ×2 (10:34→20:38)
[2021-01-06 14:00] VITALS: BP 141/61
[2021-01-06 20:00] VITALS: BP 146/64
[2021-01-06] MEDS: SENNA 8.6 MG TAB (SENOKOT) PO SCH (20:36)
[2021-01-06] MEDS: LORATADINE 10 MG TAB PO SCH (20:37)
[2021-01-06] MEDS: ATORVASTATIN 20 MG TAB PO SCH (20:37)
[2021-01-06] MEDS: rOPINIRole 2MG TAB PO SCH (20:37)
--- NOTE | 2021-01-06 20:57 | IPNPDOC ---
PM&R Progress Note DATE OF SERVICE: Jan 06, 2021 Infrastructure Director Progress Note Subjective: Patient reporting dion woke up feeling like she has a cold and her nose is watery. SHe denies fevers or chills. REVIEW OF SYSTEMS: The following is a completed review of systems and has been reviewed. Review of systems otherwise unremarkable. PAIN: Patient self reports no pain EYES: No recent vision changes EARS, NOSE, & THROAT: +dysphagia (improving) CARDIOVASCULAR: Denies chest pain or palpitations PULMONARY: Denies shortness of breath, mild cough GASTROINTESTINAL: Denies constipation/diarrhea GENITOURINARY: denies dysuria MUSCULOSKELETAL: left sided weakness NEUROLOGICAL:left sided paresis HEMATOLOGICAL: denies easy bruising SKIN: right neck incision PSYCHIATRIC: +anxious All other review of systems found to be negative. PHYSICAL EXAMINATION: VITAL SIGNS: Please see below. GENERAL: Pleasant and cooperative. No acute distress. HEENT: PERRL. Extraocular movements intact. Clear conjunctiva, very mild left facial droop, tongue midline CARDIOVASCULAR: Regular rate and rhythm. No murmurs, rubs, or gallops LUNGS: scattered rhonchi ABDOMEN: Soft, nontender, nondistended. Positive bowel sounds. Normal active bowel sounds NEUROLOGICAL: Alert and oriented times three. Cranial nerves II through XII grossly intact. Sensation grossly intact EXTREMITIES: 5\5 strength right upper extremity, 4 LUE. 5\5 strength right lower extremity. 5-/5 strength in left lower extremity. +bilat LE edema (improving) SKIN: right neck incision c/d/i no swelling LABORATORY DATA: Please see below. ASSESSMENT:80-year-old F with past medical history of right sided carotid stenosis with CVAs who presents status post right CEA and recent stroke PLAN: 1. Rehab- PT/OT advance mobility and ADLs, energy conservation, stre ngthen/stretch/maintain ROM all 4 limbs- ambulating with RW -[employer]IE[employer]ENANT- cog and swallow eval 2. Neuro- s/p 2 strokes, one September 2020 and most recent right lacunar infarct November 2020 with residual left sided weakness and facial droop due to severe right sided carotid artery stenosis s/p CEA performed 12-23-[address] Servin, c/u ASA and s/p 14 day course of Plavix, c/u statin 3. CArdiac- HTN with recently difficult to control BPs- better overall, increased metoprolol and added hydralazine with holding parameters -diastolic CHF, fluid restrict, daily weights, c/u lasix -HLD- statin -medicine consulted to assist in overall management 4. Resp- COPD on home 02, c/u inhalers, duonebs, monitor for infection -c/u flonase, NS drops ordered, and claritin for sinus pressure-improved -sputum cx ordered for complaint of throat/chest congestion which has improved, Resp panel is negative- low concern for PNA at this time, hwoever will repeat CXR given some rhonchi on exam- 5. Endo- hx of DM c/u ISS, consistent carb diet 6. - overactive bladder, c/u oxybutynin (dose lowered to daily due to dry valorie ) 7. GI ppx- protonix 8. DVT ppx- heparin 9. Psych- anxiety- Xanax 10. Pain- fibromyalgia c/u cymbalta and gabapentin (increased dosing for headaches which have improved) 11. Renal- patient with CKD, renal consulted to assist in BP management-renal US negative for renal artery stenosis- recs appreciated 12. Dispo- 01-10-21 to home, wheelchair level Allergies Coded Allergies: Penicillins (Verified Allergy, Intermediate, rash, 12/09/20) Tetracyclines (Verified Allergy, Intermediate, rash, 12/09/20) Sulfa (Sulfonamide Antibiotics) (Verified Adverse Reaction, Mild, mouth sores, 12/09/20) Vital Signs Vital Signs Date Time Temp Pulse Resp B/P (MAP) Pulse Ox O2 Delivery O2 Flow Rate FiO2 01/06/21 20:36 75 146/64 01/06/21 20:00 97.9 18 90 Room Air 01/06/21 08:33 2.0 Laboratory Data CBC/BMP Laboratory Tests 01/06/21 07:03 Labs 24H Laboratory Tests 2 01/05/21 21:07: Bedside Glucose (Misc Panel) 195H 01/06/21 06:56: Bedside Glucose (Misc Panel) 170H 01/06/21 07:03: Immature Granulocyte % (Auto) 1.2, Neutrophils (%) (Auto) 67.8H, Lymphocytes (%) (Auto) 18.2L, Monocytes (%) (Auto) 8.0, Eosinophils (%) (Auto) 4.0H, Basophils (%) (Auto) 0.8, Neutrophils # (Auto) 6.5, Lymphocytes # (Auto) 1.8, Monocytes # (Auto) 0.8, Eosinophils # (Auto) 0.4, Basophils # (Auto) 0.1, Nucleated Red Blood Cells % (auto) 0.0, Anion Gap 3L, Glomerular Filtration Rate 56.3, Calcium Level 8.5L 01/06/21 11:49: Bedside Glucose (Misc Panel) 291H 01/06/21 16:19: Bedside Glucose (Misc Panel) 180H 01/06/21 19:40: Bedside Glucose (Misc Panel) 210H Microbiology Microbiology 01/02/21 Respiratory Virus Panel (PCR) (RANI) - Final, Complete Current Medications Current Medications Current Medications Medications (Trade) Dose Ordered Sig/Mandi Route PRN Reason Start Time Stop Time Status Last Admin Dose Admin Acetaminophen (Tylenol Tab) 650 mg Q4HP PRN PO fever/MILD PAIN (PS 1-4) 12/27/20 18:30 12/28/20 21:01 Alprazolam (Xanax) 0.25 mg BID PO 12/28/20 09:00 01/06/21 20:36 Alprazolam (Xanax) 0.25 mg TIDP PRN PO ANXIETY 12/28/20 00:00 12/28/20 11:37 DC Amlodipine Besylate (Norvasc) 2.5 mg DAILY PO 12/28/20 06:40 12/28/20 11:06 DC 12/28/20 07:07 Amlodipine Besylate (Norvasc) 5 mg BID PO 12/28/20 21:00 01/04/21 14:21 DC 01/04/21 08:10 Amlodipine Besylate (Norvasc) 5 mg BID PO 01/04/21 21:00 01/06/21 20:36 Amlodipine Besylate (Norvasc) 10 mg BID PO 01/04/21 21:00 01/04/21 14:24 DC Aspirin (Ecotrin) 81 mg DAILY PO 12/28/20 09:00 01/06/21 10:33 Atorvastatin Calcium (Lipitor) 40 mg QHS PO 12/28/20 21:00 01/06/21 20:37 Bisacodyl (Dulcolax Suppository) 10 mg DAILYPRN PRN NC CONSTIPATION 12/27/20 18:30 Budesonide (Pulmicort Flexhaler) 2 puff RBID INH 12/28/20 08:00 01/06/21 07:06 Clopidogrel Bisulfate (PLAVix) 75 mg DAILY PO 12/28/20 09:00 01/02/21 12:00 DC 01/02/21 09:19 Dextrose (Dextrose 50%) 25 ml ASDIRECTED PRN IV SEE LABEL COMMENTS 12/27/20 18:30 Docusate Sodium (Colace) 100 mg BID PO 12/27/20 21:00 01/06/21 20:36 Duloxetine HCl (Cymbalta) 60 mg DAILY PO 12/28/20 09:00 01/06/21 10:33 Fluticasone Propionate (Flonase 0.05% Nasal [place]) 1 spray BID NARES 12/28/20 09:00 01/06/21 20:38 Furosemide (Lasix) 20 mg DAILY PO 12/29/20 09:00 01/04/21 08:31 DC 01/04/21 08:10 Furosemide (Lasix) 20 mg DAILY PO 01/05/21 09:00 01/06/21 10:33 Furosemide (Lasix) 40 mg DAILY PO 12/28/20 09:00 12/29/20 07:45 DC 12/28/20 12:40 Furosemide (Lasix) 40 mg DAILY PO 01/05/21 09:00 01/04/21 08:36 DC Gabapentin (Neurontin) 100 mg QAM PO 12/28/20 09:00 12/31/20 07:25 DC 12/30/20 09:05 Gabapentin (Neurontin) 100 mg TID PO 12/31/20 09:00 01/06/21 20:37 Glucagon (Glucagon) 1 mg ASDIRECTED PRN SC SEE LABEL COMMENTS 12/27/20 18:30 Glucose (Glucose) 16 GM ASDIRECTED PRN PO SEE LABEL COMMENTS 12/27/20 18:30 Guaifenesin (Robitussin Tab) 400 mg TID PO 01/02/21 16:00 01/06/21 20:37 Heparin Sodium (Porcine) (Heparin) 5,000 units Q12H SC 12/28/20 09:00 01/06/21 20:38 Hydralazine HCl (Apresoline) 25 mg QID PO 12/27/20 21:00 12/28/20 10:28 DC 12/28/20 08:15 Hydralazine HCl (Apresoline) 25 mg QID PO 01/04/21 17:00 01/06/21 20:36 Hydralazine HCl (Apresoline) 50 mg Q6H PO 12/28/20 12:00 12/30/20 16:23 DC 12/30/20 05:31 Hydralazine HCl (Apresoline) 50 mg QID PO 12/28/20 13:00 12/28/20 10:58 DC Insulin Detemir (Levemir Insulin) 5 units DAILY SC 12/29/20 13:45 01/06/21 10:28 Insulin Detemir (Levemir Insulin) 10 units QHS SC 12/28/20 21:00 12/28/20 12:25 DC Insulin Detemir (Levemir Insulin) 10 units QHS SC 12/28/20 21:00 12/29/20 13:14 DC 12/28/20 21:01 Insulin Detemir (Levemir Insulin) 14 units QHS SC 12/29/20 21:00 01/06/21 20:38 Insulin Human Lispro (HumaLOG INSULIN) SEE PROTOCOL TABLE AC PA 12/28/20 07:30 01/06/21 17:23 Insulin Human Lispro (HumaLOG INSULIN) SEE PROTOCOL TABLE QHS PA 12/27/20 21:00 01/02/21 21:45 Levothyroxine Sodium (Synthroid) 125 mcg DAILY@06 PO 12/28/20 06:00 01/06/21 05:36 Lisinopril (Prinivil) 10 mg BID PO 12/30/20 21:00 01/06/21 20:37 Loratadine (Claritin) 10 mg QHS PO 01/02/21 21:00 01/06/21 20:37 Metoprolol Succinate (TopROL XL) 25 mg BID PO 12/29/20 21:00 01/04/21 14:24 DC 01/04/21 08:09 Metoprolol Succinate (TopROL XL) 25 mg DAILY PO 12/28/20 09:00 12/29/20 09:38 DC 12/29/20 08:15 Metoprolol Succinate (TopROL XL) 37.5 mg BID PO 01/04/21 21:00 01/06/21 20:37 Nitroglycerin (Nitrobid 2%) hold for sbp<140 1 INCH Q4H TOP 12/29/20 10:00 12/30/20 16:23 DC 12/30/20 14:00 Oxybutynin Chloride (Ditropan) 5 mg BID PO 12/28/20 09:00 12/29/20 16:37 DC 12/29/20 08:13 Oxybutynin Chloride (Ditropan) 5 mg DAILY PO 12/30/20 09:00 01/06/21 10:30 Oxycodone HCl (Roxicodone, Oxyir) 5 mg Q8HP PRN PO >5/10 pain scale 12/29/20 09:45 01/04/21 10:01 DC Pantoprazole Sodium (Protonix) 40 mg DAILY PO 12/28/20 09:00 01/06/21 10:30 Ropinirole HCl (Requip) 1 mg QHS PO 12/28/20 21:00 12/28/20 11:39 DC Ropinirole HCl (Requip) 2 mg QHS PO 12/28/20 21:00 01/06/21 20:37 Saliva Substitute (Mouthkote) 2 sprays QID PRN MT DRY MOUTH 12/29/20 17:00 Senna (Senokot) 1 tab QHS PO 12/27/20 21:00 01/06/21 20:36 Sodium Chloride ([place] Nasal [place]) 2 spray QID NA 01/02/21 13:00 01/06/21 20:38 MAYI CLINTON MD Jan 06, 2021 20:57
[2021-01-07 05:15] VITALS: BP 119/79
[2021-01-07] MEDS: LEVOTHYROXINE 125MCG TABLET (0.125MG) PO SCH (05:51)
[2021-01-07] MEDS: BUDESONIDE 180MCG INHALER (PULMICORT FLEXHALER) INH SCH ×2 (08:15→20:00)
[2021-01-07 08:31] VITALS: BP 147/65
[2021-01-07] MEDS: LEVEMIR (INSULIN DETEMIR) 1 UNITS/0.01ML SC SCH ×2 (08:32→20:16)
[2021-01-07] MEDS: oxyBUTYnin 5 MG TAB PO SCH (08:33)
[2021-01-07] MEDS: PANTOPRAZOLE 40MG TAB (PROTONIX) PO SCH (08:33)
[2021-01-07] MEDS: ALPRAZolam 0.25 MG TAB PO SCH ×2 (08:33→20:17)
[2021-01-07] MEDS: GABAPENTIN 100 MG CAP PO SCH ×3 (08:33→20:17)
[2021-01-07] MEDS: DOCUSATE SODIUM 100MG CAPSULE PO SCH ×2 (08:33→20:17)
[2021-01-07] MEDS: ASPIRIN 81MG ENTERIC TABLET PO SCH (08:33)
[2021-01-07] MEDS: guaiFENesin 200 MG TAB PO SCH ×3 (08:33→20:17)
[2021-01-07] MEDS: HumaLOG INSULIN (NovoLOG) PER UNIT SC SCH ×4 (08:33→20:19)
[2021-01-07] MEDS: HEPARIN SOD (PORCINE) 5000UNITS/ML 1ML VIAL/SYRINGE SC SCH ×2 (08:34→20:16)
[2021-01-07] MEDS: DULoxetine 30 MG CAP (CYMBALTA) PO SCH (08:34)
[2021-01-07] MEDS: METOPROLOL SUCC *XL* 25MG TAB (TopROL *XL*) PO SCH ×2 (08:34→20:18)
[2021-01-07] MEDS: **hydrALAZINE HCL** 25 MG TAB PO SCH ×4 (08:35→20:18)
[2021-01-07] MEDS: amLODIPine 5 MG TAB PO SCH ×2 (08:35→20:18)
[2021-01-07] MEDS: FUROSEMIDE 20 MG TAB PO SCH (08:35)
[2021-01-07] MEDS: SODIUM CHLORIDE NASAL 0.65% SPRAY BTL (OCEAN) SCH ×4 (08:36→20:17)
[2021-01-07] MEDS: REMEDY PHYTOPLEX Z-GUARD PASTE 113GM TUBE (FROM STOREROOM PRODUCT) TOP SCH ×3 (08:36→20:19)
[2021-01-07] MEDS: FLUTICASONE PROP 0.05% NASAL SPRAY 16 GM (FLONASE) NARES SCH ×2 (08:36→20:17)
[2021-01-07 12:15] VITALS: BP 147/65
[2021-01-07 14:15] VITALS: BP 109/55
[2021-01-07 16:07] VITALS: BP 153/68
[2021-01-07 20:00] VITALS: BP 119/56
[2021-01-07] MEDS: LORATADINE 10 MG TAB PO SCH (20:17)
[2021-01-07] MEDS: rOPINIRole 2MG TAB PO SCH (20:17)
[2021-01-07] MEDS: SENNA 8.6 MG TAB (SENOKOT) PO SCH (20:17)
[2021-01-07] MEDS: ATORVASTATIN 20 MG TAB PO SCH (20:17)
[2021-01-08 05:35] VITALS: BP 155/67
[2021-01-08] MEDS: LEVOTHYROXINE 125MCG TABLET (0.125MG) PO SCH (05:44)
[2021-01-08] MEDS: DOCUSATE SODIUM 100MG CAPSULE PO SCH ×2 (07:39→20:09)
[2021-01-08] MEDS: oxyBUTYnin 5 MG TAB PO SCH (07:39)
[2021-01-08] MEDS: PANTOPRAZOLE 40MG TAB (PROTONIX) PO SCH (07:39)
[2021-01-08] MEDS: HumaLOG INSULIN (NovoLOG) PER UNIT SC SCH ×4 (07:39→20:16)
[2021-01-08] MEDS: LEVEMIR (INSULIN DETEMIR) 1 UNITS/0.01ML SC SCH ×2 (07:39→20:11)
[2021-01-08] MEDS: amLODIPine 5 MG TAB PO SCH ×2 (07:40→20:09)
[2021-01-08] MEDS: FUROSEMIDE 20 MG TAB PO SCH (07:40)
[2021-01-08] MEDS: METOPROLOL SUCC *XL* 25MG TAB (TopROL *XL*) PO SCH ×2 (07:40→20:10)
[2021-01-08] MEDS: GABAPENTIN 100 MG CAP PO SCH ×3 (07:40→20:08)
[2021-01-08] MEDS: **hydrALAZINE HCL** 25 MG TAB PO SCH ×4 (07:40→20:08)
[2021-01-08] MEDS: ALPRAZolam 0.25 MG TAB PO SCH ×2 (07:41→20:10)
[2021-01-08] MEDS: HEPARIN SOD (PORCINE) 5000UNITS/ML 1ML VIAL/SYRINGE SC SCH ×2 (07:41→20:11)
[2021-01-08] MEDS: REMEDY PHYTOPLEX Z-GUARD PASTE 113GM TUBE (FROM STOREROOM PRODUCT) TOP SCH ×3 (07:42→20:11)
[2021-01-08] MEDS: ASPIRIN 81MG ENTERIC TABLET PO SCH (07:42)
[2021-01-08] MEDS: guaiFENesin 200 MG TAB PO SCH ×3 (07:42→20:09)
[2021-01-08] MEDS: DULoxetine 30 MG CAP (CYMBALTA) PO SCH (07:42)
[2021-01-08] MEDS: SODIUM CHLORIDE NASAL 0.65% SPRAY BTL (OCEAN) SCH ×4 (07:43→20:11)
[2021-01-08] MEDS: FLUTICASONE PROP 0.05% NASAL SPRAY 16 GM (FLONASE) NARES SCH ×2 (07:43→20:11)
[2021-01-08] MEDS: BUDESONIDE 180MCG INHALER (PULMICORT FLEXHALER) INH SCH ×2 (07:55→20:00)
[2021-01-08 12:03] VITALS: BP 126/58
[2021-01-08 14:00] VITALS: BP 132/57
[2021-01-08 16:40] VITALS: BP 139/65
[2021-01-08 20:00] VITALS: BP 151/67
[2021-01-08] MEDS: LORATADINE 10 MG TAB PO SCH (20:08)
[2021-01-08] MEDS: ATORVASTATIN 20 MG TAB PO SCH (20:09)
[2021-01-08] MEDS: SENNA 8.6 MG TAB (SENOKOT) PO SCH (20:12)
[2021-01-08] MEDS: rOPINIRole 2MG TAB PO SCH (20:15)
[2021-01-09] MEDS: LEVOTHYROXINE 125MCG TABLET (0.125MG) PO SCH (04:29)
[2021-01-09] MEDS: FUROSEMIDE 20 MG TAB PO SCH (05:10)
[2021-01-09 05:55] VITALS: BP 168/70
[2021-01-09 06:40] LABS: BASO # 0.1 10^3/uL (0.0-0.2); BASO % 0.7 % (0.0-1.0); EOS # 0.4 10^3/uL (0.0-0.5); HEMATOCRIT 33.2 % (36.0-47.0); HEMOGLOBIN 9.8 g/dl (12.0-15.5); LYMPH # 2.3 10^3/uL (1.5-5.0); LYMPH % 22.8 % (24.0-44.0); MEAN CORPUSCULAR HEMOGLOBIN 27.5 pg (27.0-33.0); MEAN CORPUSCULAR HGB CONC 29.5 g/dl (32.0-36.5); MONO # 0.6 10^3/uL (0.0-0.8); MONO % 6.5 % (2.0-8.0); NEUTROPHILS # 6.5 10^3/uL (1.5-8.5); NEUTROPHILS % 65.2 % (36.0-66.0); PLATELET COUNT, AUTOMATED 218 10^3/uL (150-450); RED BLOOD COUNT 3.57 10^6/uL (4.00-5.40); WHITE BLOOD COUNT 9.9 10^3/uL (4.0-10.0)
[2021-01-09 06:54] LABS: CALCIUM LEVEL 8.4 MG/DL (8.8-10.2); CREATININE FOR GFR 1.15 MG/DL (0.55-1.30); GLOMERULAR FILTRATION RATE 48.5 (>39); POTASSIUM SERUM 4.5 MEQ/L (3.5-5.1)
[2021-01-09] MEDS: BUDESONIDE 180MCG INHALER (PULMICORT FLEXHALER) INH SCH ×2 (07:35→21:03)
[2021-01-09] MEDS: **hydrALAZINE HCL** 25 MG TAB PO SCH (09:00)
[2021-01-09] MEDS: DOCUSATE SODIUM 100MG CAPSULE PO SCH ×2 (09:00→20:13)
[2021-01-09] MEDS: HumaLOG INSULIN (NovoLOG) PER UNIT SC SCH ×4 (09:10→20:17)
[2021-01-09] MEDS: PANTOPRAZOLE 40MG TAB (PROTONIX) PO SCH (09:11)
[2021-01-09] MEDS: GABAPENTIN 100 MG CAP PO SCH ×3 (09:11→20:13)
[2021-01-09] MEDS: DULoxetine 30 MG CAP (CYMBALTA) PO SCH (09:11)
[2021-01-09] MEDS: ASPIRIN 81MG ENTERIC TABLET PO SCH (09:11)
[2021-01-09] MEDS: guaiFENesin 200 MG TAB PO SCH ×3 (09:11→20:09)
[2021-01-09] MEDS: ALPRAZolam 0.25 MG TAB PO SCH ×2 (09:11→20:09)
[2021-01-09] MEDS: oxyBUTYnin 5 MG TAB PO SCH (09:11)
[2021-01-09] MEDS: SODIUM CHLORIDE NASAL 0.65% SPRAY BTL (OCEAN) SCH ×4 (09:12→20:14)
[2021-01-09] MEDS: HEPARIN SOD (PORCINE) 5000UNITS/ML 1ML VIAL/SYRINGE SC SCH ×2 (09:12→20:08)
[2021-01-09] MEDS: FLUTICASONE PROP 0.05% NASAL SPRAY 16 GM (FLONASE) NARES SCH ×2 (09:12→20:14)
[2021-01-09] MEDS: LEVEMIR (INSULIN DETEMIR) 1 UNITS/0.01ML SC SCH ×2 (09:12→20:08)
[2021-01-09] MEDS: REMEDY PHYTOPLEX Z-GUARD PASTE 113GM TUBE (FROM STOREROOM PRODUCT) TOP SCH ×3 (09:13→20:14)
[2021-01-09] MEDS: amLODIPine 5 MG TAB PO SCH ×2 (09:15→20:13)
[2021-01-09] MEDS: METOPROLOL SUCC *XL* 25MG TAB (TopROL *XL*) PO SCH ×2 (09:17→20:12)
[2021-01-09] MEDS: **hydrALAZINE** 50 MG TAB PO SCH ×3 (12:48→23:41)
[2021-01-09 14:00] VITALS: BP 116/52
[2021-01-09 19:55] VITALS: BP 130/60
[2021-01-09] MEDS: rOPINIRole 2MG TAB PO SCH (20:08)
[2021-01-09] MEDS: ATORVASTATIN 20 MG TAB PO SCH (20:12)
[2021-01-09] MEDS: LORATADINE 10 MG TAB PO SCH (20:13)
[2021-01-09] MEDS: SENNA 8.6 MG TAB (SENOKOT) PO SCH (20:13)
[2021-01-09] MEDS ORDERED: rOPINIRole 0.25 MG TAB(REQUIP) PO ONE (22:55)
[2021-01-10 05:30] VITALS: BP 131/58
[2021-01-10] MEDS: **hydrALAZINE** 50 MG TAB PO SCH ×2 (06:10→12:14)
[2021-01-10] MEDS: LEVOTHYROXINE 125MCG TABLET (0.125MG) PO SCH (06:10)
[2021-01-10] MEDS: BUDESONIDE 180MCG INHALER (PULMICORT FLEXHALER) INH SCH (07:16)
[2021-01-10] MEDS: HumaLOG INSULIN (NovoLOG) PER UNIT SC SCH ×2 (08:59→12:16)
[2021-01-10] MEDS: LEVEMIR (INSULIN DETEMIR) 1 UNITS/0.01ML SC SCH (08:59)
[2021-01-10] MEDS: guaiFENesin 200 MG TAB PO SCH (08:59)
[2021-01-10] MEDS: REMEDY PHYTOPLEX Z-GUARD PASTE 113GM TUBE (FROM STOREROOM PRODUCT) TOP SCH (09:00)
[2021-01-10] MEDS: GABAPENTIN 100 MG CAP PO SCH (09:00)
[2021-01-10] MEDS: oxyBUTYnin 5 MG TAB PO SCH (09:00)
[2021-01-10] MEDS: ASPIRIN 81MG ENTERIC TABLET PO SCH (09:00)
[2021-01-10] MEDS: DOCUSATE SODIUM 100MG CAPSULE PO SCH (09:00)
[2021-01-10] MEDS: ALPRAZolam 0.25 MG TAB PO SCH (09:00)
[2021-01-10] MEDS: HEPARIN SOD (PORCINE) 5000UNITS/ML 1ML VIAL/SYRINGE SC SCH (09:00)
[2021-01-10] MEDS: DULoxetine 30 MG CAP (CYMBALTA) PO SCH (09:00)
[2021-01-10] MEDS: PANTOPRAZOLE 40MG TAB (PROTONIX) PO SCH (09:00)
[2021-01-10] MEDS: FUROSEMIDE 20 MG TAB PO SCH (09:07)
[2021-01-10] MEDS: amLODIPine 5 MG TAB PO SCH (09:07)
[2021-01-10] MEDS: METOPROLOL SUCC *XL* 25MG TAB (TopROL *XL*) PO SCH (09:08)
[2021-01-10] MEDS: SODIUM CHLORIDE NASAL 0.65% SPRAY BTL (OCEAN) SCH ×2 (09:09→12:16)
[2021-01-10] MEDS: FLUTICASONE PROP 0.05% NASAL SPRAY 16 GM (FLONASE) NARES SCH (09:09)
[2021-01-10] MEDS ORDERED: FLON1SPR (09:22)
[2021-01-10] MEDS ORDERED: PULM90IN INH (09:22)
[2021-01-10] MEDS ORDERED: ATOR40TA75 PO (09:22)
[2021-01-10] MEDS ORDERED: HYDR50TA PO (09:22)
[2021-01-10] MEDS ORDERED: ASPI81TA26 PO (09:22)
[2021-01-10] MEDS ORDERED: DULO1CAP6 PO (09:22)
[2021-01-10] MEDS ORDERED: NOVO1INJ4 SC (09:22)
[2021-01-10] MEDS ORDERED: FURO20TA2 PO (09:22)
[2021-01-10] MEDS ORDERED: METO1TAB32 PO (09:22)
[2021-01-10] MEDS ORDERED: GABA-1171 PO (09:22)
[2021-01-10] MEDS ORDERED: LEVO125T4 PO (09:22)
[2021-01-10] MEDS ORDERED: AMLO1TAB24 PO (09:22)
[2021-01-10] MEDS ORDERED: OXYB5TAB10 PO (09:22)
[2021-01-10] MEDS ORDERED: ROPI1TAB3 PO (09:22)
[2021-01-10 12:14] VITALS: BP 146/66
[2021-01-10 14:00] VITALS: BP 118/58
== END 2021-01-10 17:15 | disposition home health service (06) | DRG 57 ==
LOC: M PM&R 21:19
PROVIDERS: ADMIT Physical Medicine & Rehabilitation; ATTEND Physical Medicine & Rehabilitation
DX: I69.354 Hemiplegia and hemiparesis following cerebral infarction affecting left non-dominant side (principal); I50.32 Chronic diastolic (congestive) heart failure; E11.9 Type 2 diabetes mellitus without complications; E78.5 Hyperlipidemia, unspecified; I11.0 Hypertensive heart disease with heart failure; M79.7 Fibromyalgia; N32.81 Overactive bladder; J44.9 Chronic obstructive pulmonary disease, unspecified; F41.9 Anxiety disorder, unspecified; G25.81 Restless legs syndrome; I69.392 Facial weakness following cerebral infarction; Z74.09 Other reduced mobility; Z74.1 Need for assistance with personal care; Z90.49 Acquired absence of other specified parts of digestive tract; Z92.3 Personal history of irradiation; Z98.41 Cataract extraction status, right eye; Z98.42 Cataract extraction status, left eye; Z99.81 Dependence on supplemental oxygen; Z79.82 Long term (current) use of aspirin; Z79.02 Long term (current) use of antithrombotics/antiplatelets; Z79.899 Other long term (current) drug therapy; Z88.0 Allergy status to penicillin; Z88.2 Allergy status to sulfonamides; Z88.8 Allergy status to other drugs, medicaments and biological substances; E03.9 Hypothyroidism, unspecified

== ENCOUNTER 2021-01-13 11:51 | Inpatient (IN) | payer MEDICARE, BC ==
[~2021-01-13] VITALS: Ht 154.9 cm; Wt 90.8 kg
[~2021-01-13 11:51] MED LIST changes: +AMLO1TAB24 PO; +FURO20TA2 PO; +HYDR50TA PO; +OXYC1TAB23 PO
--- NOTE | 2021-01-13 13:00 | REP ---
INDICATION: weakness. COMPARISON: 01/06/2021 latest prior FINDINGS: The technique utilized in obtaining the radiograph has magnified the cardiac silhouette and accentuated the interstitial markings. There is mild cardiomegaly accentuated by technique. There is a diffuse increase in the interstitial markings status quo. No acute patchy parenchymal opacities or pleural effusions have developed. The pleural angles are again seen to be sharp. The osseous structures are unchanged. IMPRESSION: Stable appearing chronic changes without evidence of acute cardiopulmonary disease. <Electronically signed by Pietro Godoy > 01/13/21 1257
--- NOTE | 2021-01-13 13:01 | REP ---
INDICATION: fall; left wrist/forearm pain. COMPARISON: None. TECHNIQUE: Four views FINDINGS: There is a smoothly marginated well corticated ossific density seen adjacent to the tip of the ulnar styloid process. There is no evidence of an acute fracture, dislocation, or subluxation. IMPRESSION: No acute abnormality. <Electronically signed by Pietro Godoy > 01/13/21 0490
--- NOTE | 2021-01-13 13:05 | REP ---
INDICATION: fall; left wrist/forearm pain. COMPARISON: None. TECHNIQUE: AP and lateral views FINDINGS: Soft tissue calcifications are seen in the dorsal soft tissues of the proximal ulna. These are unchanged compared to an elbow series of 12/28/2020. There is no evidence of an acute fracture or destructive osseous lesion. IMPRESSION: No acute abnormality <Electronically signed by Pietro Godoy > 01/13/21 1226
[2021-01-13 13:39] LABS: BASO # 0.1 10^3/uL (0.0-0.2); BASO % 0.5 % (0.0-1.0); EOS # 0.4 10^3/uL (0.0-0.5); EOS % 3.8 % (0.0-3.0); HEMATOCRIT 35.3 % (36.0-47.0); HEMOGLOBIN 10.3 g/dl (12.0-15.5); LYMPH # 2.1 10^3/uL (1.5-5.0); LYMPH % 18.2 % (24.0-44.0); MEAN CORPUSCULAR HEMOGLOBIN 26.9 pg (27.0-33.0); MEAN CORPUSCULAR HGB CONC 29.2 g/dl (32.0-36.5); MEAN CORPUSCULAR VOLUME 92.2 fl (80.0-96.0); MONO # 0.7 10^3/uL (0.0-0.8); MONO % 6.4 % (2.0-8.0); NEUTROPHILS % 70.5 % (36.0-66.0); PLATELET COUNT, AUTOMATED 247 10^3/uL (150-450); RED BLOOD COUNT 3.83 10^6/uL (4.00-5.40); WHITE BLOOD COUNT 11.3 10^3/uL (4.0-10.0)
[2021-01-13 14:12] LABS: ALBUMIN 3.5 GM/DL (3.2-5.2); ALT/SGPT 21 U/L (12-78); BILIRUBIN,DIRECT < 0.1 MG/DL (0.0-0.2); BILIRUBIN,TOTAL 0.2 MG/DL (0.2-1.0); BLOOD UREA NITROGEN 40 MG/DL (7-18); CARBON DIOXIDE LEVEL 30 MEQ/L (21-32); CHLORIDE LEVEL 105 MEQ/L (98-107); CPK CREATINE PHOSPHOKINASE 120 U/L (26-192); CREATININE FOR GFR 1.38 MG/DL (0.55-1.30); GLOMERULAR FILTRATION RATE 39.3 (>39); GLUCOSE, FASTING 99 MG/DL (70-100); LIPASE 32 U/L (73-393); MAGNESIUM LEVEL 2.5 MG/DL (1.8-2.4); MB/CK RELATIVE INDEX 1.67 (< OR =4); NT-PRO BNP 429 PG/ML (<450); SODIUM LEVEL 139 MEQ/L (136-145); TOTAL PROTEIN 7.1 GM/DL (6.4-8.2); TROPONIN I < 0.02 NG/ML (< 0.10)
[2021-01-13] MEDS ORDERED: NS 500 ML IV ONE (14:35)
[2021-01-13] MEDS ORDERED: HYDR-3911 PO (14:54)
[2021-01-13] MEDS ORDERED: ATOR40TA75 PO (14:54)
[2021-01-13] MEDS ORDERED: ROPI1TAB3 PO (14:54)
[2021-01-13] MEDS ORDERED: ALPR1TAB3 PO ×2 (14:54)
[2021-01-13] MEDS ORDERED: GABA-1171 PO (14:54)
[2021-01-13] MEDS ORDERED: NOVO1INJ4 SC (14:54)
[2021-01-13] MEDS ORDERED: METO1TAB32 PO (14:54)
[2021-01-13] MEDS ORDERED: SYNT125T PO (14:54)
[2021-01-13] MEDS ORDERED: FURO20TA2 PO (14:54)
[2021-01-13] MEDS ORDERED: ASPI81TA26 PO (14:54)
[2021-01-13] MEDS ORDERED: DULO1CAP6 PO (14:54)
[2021-01-13] MEDS ORDERED: PULM90IN INH (14:54)
[2021-01-13] MEDS ORDERED: AMLO1TAB24 PO (14:54)
[2021-01-13] MEDS ORDERED: OXYB5TAB10 PO (14:54)
[2021-01-13] MEDS ORDERED: FLON1SPR NARES (14:55)
[2021-01-13] MEDS ORDERED: ALPRAZolam 0.5 MG TAB PO PRN (15:05)
--- NOTE | 2021-01-13 15:37 | ECGEPIP ---
[facility] - ED Test Date: 2021-01-13 Pat Name: DANIELA HOLLIDAY Department: Room: - Gender: Female Or Scrub Tech: DARIAN : 1940 Requested By: HOWARD KWAN Order Number: [id number] Reading MD: Sondra Milligan Measurements Intervals [place] Rate: 62 P: 66 HI: 122 QRS: -20 QRSD: 140 T: 116 QT: 458 QTc: 464 Interpretive Statements Normal sinus rhythm Left bundle branch block similar 12/19/20 Electronically Signed on 01-13-2021 15:36:47 EDT by Sondra Milligan
[2021-01-13 15:39] LABS: RSV AMPLIFICATION NEGATIVE (NEGATIVE)
[2021-01-13] MEDS: GABAPENTIN 100 MG CAP PO SCH ×2 (18:09→22:00)
[2021-01-13] MEDS: **hydrALAZINE** 50 MG TAB PO SCH ×2 (19:15→23:50)
[2021-01-13 20:40] VITALS: BP 128/48
[2021-01-13] MEDS: ALPRAZolam 0.5 MG TAB PO SCH (21:59)
[2021-01-13] MEDS: DULoxetine 30 MG CAP (CYMBALTA) PO SCH (22:00)
[2021-01-13] MEDS: ATORVASTATIN 20 MG TAB PO SCH (22:00)
[2021-01-13] MEDS: amLODIPine 5 MG TAB PO SCH (22:08)
[2021-01-13] MEDS: METOPROLOL SUCC *XL* 25MG TAB (TopROL *XL*) PO SCH (22:11)
[2021-01-13] MEDS: rOPINIRole 2MG TAB PO SCH (22:41)
[2021-01-13] MEDS: FLUTICASONE PROP 0.05% NASAL SPRAY 16 GM (FLONASE) NARES SCH (22:41)
[2021-01-13] MEDS: HumuLIN (NovoLIN)70/30 INSULIN INJ PER UNIT SC SCH (22:42)
[2021-01-13 23:45] VITALS: O2SAT 82
[2021-01-14] VITALS (8 sets, daily range): BP systolic 117–133; BP diastolic 58–70; O2SAT 90–97
[2021-01-14] MEDS: **hydrALAZINE** 50 MG TAB PO SCH ×3 (05:10→17:27)
[2021-01-14] MEDS: LEVOTHYROXINE 125MCG TABLET (0.125MG) PO SCH (05:33)
[2021-01-14 06:48] LABS: HEMATOCRIT 33.5 % (36.0-47.0); HEMOGLOBIN 9.8 g/dl (12.0-15.5); MEAN CORPUSCULAR HEMOGLOBIN 27.5 pg (27.0-33.0); MEAN CORPUSCULAR HGB CONC 29.3 g/dl (32.0-36.5); MEAN CORPUSCULAR VOLUME 94.1 fl (80.0-96.0); PLATELET COUNT, AUTOMATED 224 10^3/uL (150-450); RED BLOOD COUNT 3.56 10^6/uL (4.00-5.40); WHITE BLOOD COUNT 8.8 10^3/uL (4.0-10.0)
[2021-01-14 07:09] LABS: ALBUMIN 2.9 GM/DL (3.2-5.2); BILIRUBIN,TOTAL 0.5 MG/DL (0.2-1.0); CALCIUM LEVEL 8.7 MG/DL (8.8-10.2); CREATININE FOR GFR 1.25 MG/DL (0.55-1.30); POTASSIUM SERUM 4.7 MEQ/L (3.5-5.1)
[2021-01-14] MEDS: amLODIPine 5 MG TAB PO SCH ×2 (09:00→21:35)
[2021-01-14] MEDS: ASPIRIN 81MG ENTERIC TABLET PO SCH (09:44)
[2021-01-14] MEDS: METOPROLOL SUCC *XL* 25MG TAB (TopROL *XL*) PO SCH ×2 (09:44→21:36)
[2021-01-14] MEDS: HumuLIN (NovoLIN)70/30 INSULIN INJ PER UNIT SC SCH ×2 (09:44→21:37)
[2021-01-14] MEDS: oxyBUTYnin 5 MG TAB PO SCH (09:44)
[2021-01-14] MEDS: GABAPENTIN 100 MG CAP PO SCH ×3 (09:44→21:35)
[2021-01-14] MEDS: FLUTICASONE PROP 0.05% NASAL SPRAY 16 GM (FLONASE) NARES SCH ×2 (09:45→21:36)
--- NOTE | 2021-01-14 10:26 | IPNPDOC ---
Text Note Date of Service The patient was seen on 01/14/21. NOTE Subjective: Patient seen and examined at bedside. No acute overnight events reported. Patient has no new medical complaints this morning. She was sleeping without her nasal cannula properly in place in her nares, states the nasal cannula disturbs her sleep. Objective: VITAL SIGNS: See below General: NAD, lying comfortably in bed HEENT: NC/AT, EOMI, edentulous Lungs: CTA B/L Heart: +S1S2, soft systolic murmur, RRR Abd: soft, obese, NT Ext: trace edema A/P: 80 yo female with extensive medical history including recent CVA, presents for generalized weakness and multiple falls. #weakness/falls - PT/OT - may need placement #CVA in November 2020 with left sided weakness, #HTN - norvasc, hydralazine #HLD - lipitor #COPD - chronic hypoxic respiratory failure on 2liters of oxygen, noncompliant at home #GERALD #tobacco abuse #history of Graves' disease s/p Radiation - now hypothyroid on Synthroid #history of bladder CA #anxiety #RLS #DM #chronic pain, fibromyalgia #medical non-compliance - complicates care DVT prophylaxis - mechanical Dipo: pending further eval by PT VS,Valeriae, I+O VS, Valeriae, I+O Laboratory Tests 01/13/21 13:02 01/14/21 06:24 Vital Signs Date Time Temp Pulse Resp B/P (MAP) Pulse Ox O2 Delivery O2 Flow Rate FiO2 01/14/21 09:44 75 121/73 01/14/21 06:00 97.5 18 92 Nasal Cannula 1.0 I&O- Last 24 Hours up to 6 AM 01/14/21 06:00 Intake Total 660 ml Output Total 0 ml Balance 660 ml RANDELL TIAN MD January 14, 2021 10:26
[2021-01-14] MEDS ORDERED: DEXTROSE 50% 50 ML SYRINGE IV PRN (11:35)
[2021-01-14] MEDS ORDERED: GLUCOSE 4GM CHEW TABLET PO PRN (11:35)
[2021-01-14] MEDS ORDERED: GLUCAGON INJ 1MG VIAL SC PRN (11:35)
[2021-01-14] MEDS: HumaLOG INSULIN (NovoLOG) PER UNIT SC SCH ×3 (12:03→21:37)
[2021-01-14] MEDS: DULoxetine 30 MG CAP (CYMBALTA) PO SCH (21:35)
[2021-01-14] MEDS: ALPRAZolam 0.5 MG TAB PO SCH (21:35)
[2021-01-14] MEDS: ATORVASTATIN 20 MG TAB PO SCH (21:36)
[2021-01-14] MEDS: rOPINIRole 2MG TAB PO SCH (21:43)
[2021-01-15 06:00] VITALS: BP 150/55
[2021-01-15] MEDS: LEVOTHYROXINE 125MCG TABLET (0.125MG) PO SCH (06:07)
[2021-01-15] MEDS: **hydrALAZINE** 50 MG TAB PO SCH ×4 (06:08→17:33)
[2021-01-15 08:08] LABS: HEMATOCRIT 34.3 % (36.0-47.0); HEMOGLOBIN 9.9 g/dl (12.0-15.5); MEAN CORPUSCULAR HEMOGLOBIN 27.5 pg (27.0-33.0); MEAN CORPUSCULAR HGB CONC 28.9 g/dl (32.0-36.5); MEAN CORPUSCULAR VOLUME 95.3 fl (80.0-96.0); PLATELET COUNT, AUTOMATED 209 10^3/uL (150-450); WHITE BLOOD COUNT 8.5 10^3/uL (4.0-10.0)
[2021-01-15 08:27] LABS: CALCIUM LEVEL 8.4 MG/DL (8.8-10.2); CREATININE FOR GFR 1.05 MG/DL (0.55-1.30); GLOMERULAR FILTRATION RATE 53.8 (>39); POTASSIUM SERUM 4.9 MEQ/L (3.5-5.1)
[2021-01-15] MEDS: HumaLOG INSULIN (NovoLOG) PER UNIT SC SCH ×4 (08:32→21:21)
[2021-01-15] MEDS: HumuLIN (NovoLIN)70/30 INSULIN INJ PER UNIT SC SCH ×2 (08:32→21:35)
[2021-01-15] MEDS: amLODIPine 5 MG TAB PO SCH ×2 (08:32→21:20)
[2021-01-15] MEDS: FLUTICASONE PROP 0.05% NASAL SPRAY 16 GM (FLONASE) NARES SCH ×2 (08:32→21:17)
[2021-01-15] MEDS: METOPROLOL SUCC *XL* 25MG TAB (TopROL *XL*) PO SCH ×2 (08:33→21:20)
[2021-01-15] MEDS: ASPIRIN 81MG ENTERIC TABLET PO SCH (08:33)
[2021-01-15] MEDS: oxyBUTYnin 5 MG TAB PO SCH (08:33)
[2021-01-15] MEDS: GABAPENTIN 100 MG CAP PO SCH ×3 (08:33→21:18)
--- NOTE | 2021-01-15 10:11 | HPEPDOC ---
[facility] Medical History & Physical Date of Admission Jan 13, 2021 Date of Service: Jan 13, 2021 History and Physical CHIEF COMPLAINT: weakness HISTORY OF PRESENT ILLNESS: 80 year old female presents for worsening gneralized weakness with multiple falls. Denies head trauma. Denies any other medical complaints. Denies shortness of breath, chest pain, abdominal cisneros, N/V/D. PAST MEDICAL HISTORY: #CVA in November 2020 with left sided weakness, #HTN #HLD #COPD - chronic hypoxic respiratory failure on 2liters of oxygen, noncompliant at home #GERALD #tobacco abuse #history of Graves' disease s/p Radiation, now hypothyroid on Synthroid #history of bladder CA #anxiety #RLS #DM #chronic pain, fibromyalgia ALLERGIES: Please see below. REVIEW OF SYSTEMS: Negative except as per HPI HOME MEDICATIONS: Please see below. PHYSICAL EXAMINATION: VITAL SIGNS: See below General: NAD, lying comfortably in bed HEENT: NC/AT, EOMI Lungs: CTA B/L Heart: +S1S2, soft systolic murmur, RRR Abd: soft, obese, NT Ext: trace edema LABORATORY DATA: See below. MICROBIOLOGY: Please see below. A/P: 80 yo female with extensive medical history including recent CVA, presents for generalized weakness and multiple falls. #weakness/falls - PT/OT - may need placement #CVA in November 2020 with left sided weakness, #HTN #HLD #COPD - chronic hypoxic respiratory failure on 2liters of oxygen, noncompliant at home #GERALD #tobacco abuse #history of Graves' disease s/p Radiation, now hypothyroid on Synthroid #history of bladder CA #anxiety #RLS #DM #chronic pain, fibromyalgia Vital Signs Vital Signs Date Time Temp Pulse Resp B/P (MAP) Pulse Ox O2 Delivery O2 Flow Rate FiO2 01/15/21 08:32 69 149/55 01/15/21 06:00 97.5 20 93 Nasal Cannula 0.5 Laboratory Data Labs 24H Laboratory Tests 2 01/14/21 11:22: Bedside Glucose (Misc Panel) 339H 01/14/21 16:09: Bedside Glucose (Misc Panel) 227H 01/14/21 20:37: Bedside Glucose (Misc Panel) 293H 01/15/21 00:01: Bedside Glucose (Misc Panel) 196H 01/15/21 07:48: Nucleated Red Blood Cells % (auto) 0.0, Anion Gap 4L, Glomerular Filtration Rate 53.8, Calcium Level 8.4L 01/15/21 08:17: Bedside Glucose (Misc Panel) 242H CBC/BMP Laboratory Tests 01/15/21 07:48 Home Medications Scheduled Alprazolam (Alprazolam) 1 Mg Tablet, 1 MG PO QHS Amlodipine Besylate (Amlodipine Besylate) 5 Mg Tablet, 5 MG PO BID Aspirin (Aspirin EC) 81 Mg Tablet.dr, 81 MG PO DAILY Atorvastatin Calcium (Atorvastatin Calcium) 40 Mg Tablet, 40 MG PO QHS Budesonide (Pulmicort Flexhaler) 90 Mcg Aer.pow.ba, 2 PUFFS INH BID Duloxetine Hcl (Duloxetine HCl) 60 Mg Capsule.dr, 60 MG PO QHS Fluticasone Propionate (Flonase Allergy Relief) 9.9 Ml [place].susp, 1 SPRAY NARES BID Gabapentin (Gabapentin) 100 Mg Capsule, 100 MG PO TID Hydralazine HCl (Hydralazine HCl) 50 Mg Tablet, 50 MG PO Q6H Insulin NPH Hum/Reg Insulin Hm (Novolin 70-30 100 Unit/ml Vial) 100 Unit/1 Ml Vial, 10 UNITS SC BID Levothyroxine Sodium (Synthroid) 125 Mcg Tablet, 125 MCG PO QAM Metoprolol Succinate (Metoprolol Succinate) 25 Mg Tab.er.24h, 37.5 MG PO BID Oxybutynin Chloride (Oxybutynin Chloride) 5 Mg Tablet, 5 MG PO DAILY Ropinirole HCl (Ropinirole HCl) 1 Mg Tablet, 2 MG PO QHS Scheduled PRN Alprazolam (Alprazolam) 1 Mg Tablet, 1 MG PO BID PRN for ANXIETY Furosemide (Furosemide) 20 Mg Tablet, 20 MG PO DAILY PRN for LEG SWELLING Allergies Coded Allergies: Penicillins (Verified Allergy, Intermediate, rash, 12/09/20) Tetracyclines (Verified Allergy, Intermediate, rash, 12/09/20) Sulfa (Sulfonamide Antibiotics) (Verified Adverse Reaction, Mild, mouth sores, 12/09/20) A-FIB/CHADSVASC A-FIB History Current/History of A-Fib/PAF?: No Current PO Anticoag Therapy: No RANDELL TIAN MD January 15, 2021 10:11
--- NOTE | 2021-01-15 10:13 | IPNPDOC ---
Text Note Date of Service The patient was seen on 01/15/21. NOTE Subjective: Patient seen and examined at bedside. No acute overnight events reported. Patient has no new medical complaints this morning. Objective: VITAL SIGNS: See below General: NAD, lying comfortably in bed HEENT: NC/AT, EOMI, edentulous Lungs: CTA B/L Heart: +S1S2, soft systolic murmur, RRR Abd: soft, obese, NT Ext: trace edema A/P: 80 yo female with extensive medical history including recent CVA, presents for generalized weakness and multiple falls. #weakness/falls - PT/OT - may need placement #CVA in November 2020 with left sided weakness, #HTN - norvasc, hydralazine #HLD - lipitor #COPD - chronic hypoxic respiratory failure on 2liters of oxygen, noncompliant at home #GERALD #tobacco abuse #history of Graves' disease s/p Radiation - now hypothyroid on Synthroid #history of bladder CA #anxiety #RLS #DM #chronic pain, fibromyalgia #medical non-compliance - complicates care DVT prophylaxis - mechanical Dipo: pending further eval by PT - recommending home with 08/04 services VS,Fishbone, I+O VS, [place]bone, I+O Laboratory Tests 01/15/21 07:48 Vital Signs Date Time Temp Pulse Resp B/P (MAP) Pulse Ox O2 Delivery O2 Flow Rate FiO2 01/15/21 08:32 69 149/55 01/15/21 06:00 97.5 20 93 Nasal Cannula 0.5 I&O- Last 24 Hours up to 6 AM 01/15/21 06:00 Intake Total 890 ml Output Total 950 ml Balance -60 ml RANDELL TINA MD January 15, 2021 10:13
[2021-01-15 14:00] VITALS: BP 141/54
[2021-01-15 14:57] VITALS: O2SAT 90
[2021-01-15] MEDS: ALPRAZolam 0.5 MG TAB PO SCH (21:17)
[2021-01-15] MEDS: ATORVASTATIN 20 MG TAB PO SCH (21:18)
[2021-01-15] MEDS: rOPINIRole 2MG TAB PO SCH (21:18)
[2021-01-15] MEDS: DULoxetine 30 MG CAP (CYMBALTA) PO SCH (21:18)
[2021-01-15 22:00] VITALS: BP 144/56
[2021-01-16] MEDS: **hydrALAZINE** 50 MG TAB PO SCH ×4 (05:58→17:15)
[2021-01-16] MEDS: LEVOTHYROXINE 125MCG TABLET (0.125MG) PO SCH (06:00)
[2021-01-16] MEDS: HumaLOG INSULIN (NovoLOG) PER UNIT SC SCH ×4 (07:11→21:00)
[2021-01-16] MEDS: METOPROLOL SUCC *XL* 25MG TAB (TopROL *XL*) PO SCH ×2 (09:01→21:53)
[2021-01-16] MEDS: oxyBUTYnin 5 MG TAB PO SCH (09:31)
[2021-01-16] MEDS: amLODIPine 5 MG TAB PO SCH ×2 (09:31→21:53)
[2021-01-16] MEDS: GABAPENTIN 100 MG CAP PO SCH ×3 (09:31→21:54)
[2021-01-16] MEDS: ASPIRIN 81MG ENTERIC TABLET PO SCH (09:31)
[2021-01-16] MEDS: FLUTICASONE PROP 0.05% NASAL SPRAY 16 GM (FLONASE) NARES SCH ×2 (09:32→21:51)
[2021-01-16] MEDS: HumuLIN (NovoLIN)70/30 INSULIN INJ PER UNIT SC SCH ×2 (09:32→21:51)
[2021-01-16 12:23] VITALS: O2SAT 93
[2021-01-16 14:00] VITALS: BP_SYST 124; BP_SYST 147; BP_DIAS 57; BP_DIAS 76
--- NOTE | 2021-01-16 15:20 | IPNPDOC ---
Text Note Date of Service The patient was seen on 01/16/21. NOTE Subjective: Patient seen and examined at bedside. No acute overnight events reported. Patient has no new medical complaints this morning. Many questions regarding her weakness this morning. Objective: VITAL SIGNS: See below General: NAD, lying comfortably in bed HEENT: NC/AT, EOMI, edentulous Lungs: CTA B/L Heart: +S1S2, soft systolic murmur, RRR Abd: soft, obese, NT Ext: trace edema A/P: 80 yo female with extensive medical history including recent CVA, presents for generalized weakness and multiple falls. #weakness/falls - PT/OT - may need placement #CVA in November 2020 with left sided weakness, #HTN - norvasc, hydralazine #HLD - lipitor #COPD - chronic hypoxic respiratory failure on 2liters of oxygen, noncompliant at home #GERALD #tobacco abuse #history of Graves' disease s/p Radiation - now hypothyroid on Synthroid #history of bladder CA #anxiety #RLS #DM #chronic pain, fibromyalgia #medical non-compliance - complicates care DVT prophylaxis - mechanical Dipo: pending further eval by PT - recommending home with 08/04 services; pending placement vs instigating home services VS,[place], I+O VS, [place], I+O Vital Signs Date Time Temp Pulse Resp B/P (MAP) Pulse Ox O2 Delivery O2 Flow Rate FiO2 01/16/21 14:00 97.3 68 17 147/57 (87) 93 Room Air 01/16/21 12:23 0.5 I&O- Last 24 Hours up to 6 AM 01/16/21 06:00 Intake Total 1320 ml Output Total 650 ml Balance 670 ml RANDELL TIAN MD January 16, 2021 15:20
[2021-01-16] MEDS: ALPRAZolam 0.5 MG TAB PO SCH (21:52)
[2021-01-16] MEDS: ATORVASTATIN 20 MG TAB PO SCH (21:53)
[2021-01-16] MEDS: rOPINIRole 2MG TAB PO SCH (21:53)
[2021-01-16] MEDS: DULoxetine 30 MG CAP (CYMBALTA) PO SCH (21:54)
[2021-01-16 22:00] VITALS: BP 140/48
[2021-01-17] MEDS: **hydrALAZINE** 50 MG TAB PO SCH ×3 (00:30→12:00)
[2021-01-17 06:00] VITALS: BP 147/62
[2021-01-17] MEDS: LEVOTHYROXINE 125MCG TABLET (0.125MG) PO SCH (06:08)
[2021-01-17] MEDS: GABAPENTIN 100 MG CAP PO SCH ×2 (08:42→16:37)
[2021-01-17] MEDS: oxyBUTYnin 5 MG TAB PO SCH (08:42)
[2021-01-17] MEDS: HumuLIN (NovoLIN)70/30 INSULIN INJ PER UNIT SC SCH (08:42)
[2021-01-17] MEDS: ASPIRIN 81MG ENTERIC TABLET PO SCH (08:42)
[2021-01-17] MEDS: HumaLOG INSULIN (NovoLOG) PER UNIT SC SCH ×2 (08:43→12:50)
[2021-01-17] MEDS: amLODIPine 5 MG TAB PO SCH (08:44)
[2021-01-17] MEDS: FLUTICASONE PROP 0.05% NASAL SPRAY 16 GM (FLONASE) NARES SCH (08:44)
[2021-01-17] MEDS: METOPROLOL SUCC *XL* 25MG TAB (TopROL *XL*) PO SCH (08:44)
[2021-01-17 09:00] VITALS: O2SAT 88
[2021-01-17 12:00] VITALS: BP 108/40
[2021-01-17 14:00] VITALS: BP 150/52
--- NOTE | 2021-01-17 23:14 | DS.PDOC ---
Discharge Summary General Date of Admission Jan 13, 2021 at 15:04 Date of Discharge January 17, 2021 Discharge Summary PROCEDURES PERFORMED DURING STAY: [None]. ADMITTING DIAGNOSES: 1. . DISCHARGE DIAGNOSES: 1. . COMPLICATIONS/CHIEF COMPLAINT: Multiple Falls, Weakness. HISTORY OF PRESENT ILLNESS: . HOSPITAL COURSE: . DISCHARGE MEDICATIONS: Please see below. ALLERGIES: Please see below. PHYSICAL EXAMINATION ON DISCHARGE: VITAL SIGNS: Please see below. GENERAL: HEENT: NECK: CARDIOVASCULAR EXAMINATION: RESPIRATORY EXAMINATION: ABDOMINAL EXAMINATION: EXTREMITIES: SKIN: NEUROLOGICAL EXAMINATION: PSYCHIATRIC EXAMINATION: LABORATORY DATA: Please see below. IMAGING: PROGNOSIS: ACTIVITY: [As tolerated]. DIET: DISCHARGE PLAN: DISPOSITION: Home, Self-Care. DISCHARGE INSTRUCTIONS: 1. . ITEMS TO FOLLOWUP ON ON OUTPATIENT: 1. . DISCHARGE CONDITION: [Stable]. TIME SPENT ON DISCHARGE: Greater than minutes. Vital Signs/I&Os Vital Signs Date Time Temp Pulse Resp B/P (MAP) Pulse Ox O2 Delivery O2 Flow Rate FiO2 01/17/21 14:00 97.5 70 18 150/52 (84) 93 Nasal Cannula 0.5 I&O- Last 24 Hours up to 6 AM 01/17/21 06:00 Intake Total 1465 ml Output Total 600 ml Balance 865 ml Laboratory Data Labs 24H Laboratory Tests 2 01/17/21 06:03: Bedside Glucose (Misc Panel) 222H 01/17/21 11:17: Bedside Glucose (Misc Panel) 322H FSBS Laboratory Tests Test 01/17/21 06:03 01/17/21 11:17 Range/Units Bedside Glucose (Misc Panel) 222 322 83-110 MG/DL Discharge Medications Scheduled Alprazolam (Alprazolam) 1 Mg Tablet, 1 MG PO QHS, (Reported) Amlodipine Besylate (Amlodipine Besylate) 5 Mg Tablet, 5 MG PO BID, (Reported) Aspirin (Aspirin EC) 81 Mg Tablet.dr, 81 MG PO DAILY, (Reported) Atorvastatin Calcium (Atorvastatin Calcium) 40 Mg Tablet, 40 MG PO QHS, (Reported) Budesonide (Pulmicort Flexhaler) 90 Mcg Aer.pow.ba, 2 PUFFS INH BID, (Reported) Duloxetine Hcl (Duloxetine HCl) 60 Mg Capsule.dr, 60 MG PO QHS, (Reported) Fluticasone Propionate (Flonase Allergy Relief) 9.9 Ml [place].susp, 1 SPRAY NARES BID, (Reported) Gabapentin (Gabapentin) 100 Mg Capsule, 100 MG PO TID, (Reported) Hydralazine HCl (Hydralazine HCl) 50 Mg Tablet, 50 MG PO Q6H, (Reported) Insulin NPH Hum/Reg Insulin Hm (Novolin 70-30 100 Unit/ml Vial) 100 Unit/1 Ml Vial, 10 UNITS SC BID, (Reported) Levothyroxine Sodium (Synthroid) 125 Mcg Tablet, 125 MCG PO QAM, (Reported) Metoprolol Succinate (Metoprolol Succinate) 25 Mg Tab.er.24h, 37.5 MG PO BID, (Reported) Oxybutynin Chloride (Oxybutynin Chloride) 5 Mg Tablet, 5 MG PO DAILY, (Reported) Ropinirole HCl (Ropinirole HCl) 1 Mg Tablet, 2 MG PO QHS, (Reported) Scheduled PRN Alprazolam (Alprazolam) 1 Mg Tablet, 1 MG PO BID PRN for ANXIETY, (Reported) Furosemide (Furosemide) 20 Mg Tablet, 20 MG PO DAILY PRN for LEG SWELLING, (Reported) Allergies Coded Allergies: Penicillins (Verified Allergy, Intermediate, rash, 12/09/20) Tetracyclines (Verified Allergy, Intermediate, rash, 12/09/20) Sulfa (Sulfonamide Antibiotics) (Verified Adverse Reaction, Mild, mouth sores, 12/09/20) LAURY CAREY DO January 17, 2021 23:14
== END 2021-01-17 16:51 | disposition home health service (06) | DRG 92 ==
LOC: M ED 11:51 → EDBD 11:51 → M ED INP 15:04 → ENRESERV 17:06 → M MSPAV 20:40
PROVIDERS: ADMIT Internal Medicine; ATTEND Internal Medicine
DX: R29.6 Repeated falls (principal); I69.354 Hemiplegia and hemiparesis following cerebral infarction affecting left non-dominant side; J96.11 Chronic respiratory failure with hypoxia; R53.1 Weakness; I10 Essential (primary) hypertension; E78.5 Hyperlipidemia, unspecified; J44.9 Chronic obstructive pulmonary disease, unspecified; G47.33 Obstructive sleep apnea (adult) (pediatric); E89.0 Postprocedural hypothyroidism; F41.9 Anxiety disorder, unspecified; G25.81 Restless legs syndrome; E11.9 Type 2 diabetes mellitus without complications; F17.200 Nicotine dependence, unspecified, uncomplicated; M79.7 Fibromyalgia; G89.29 Other chronic pain; Z99.81 Dependence on supplemental oxygen; Z85.51 Personal history of malignant neoplasm of bladder; Z79.82 Long term (current) use of aspirin; Z79.899 Other long term (current) drug therapy; Z88.0 Allergy status to penicillin; Z88.2 Allergy status to sulfonamides; Z88.1 Allergy status to other antibiotic agents; Z91.19 Patient's noncompliance with other medical treatment and regimen